=== PATIENT | female | born 1940 | race Caucasian/White ===

== ENCOUNTER 2019-05-30 15:12 | Outpatient (CLI) | payer MEDICARE, BC, SELFPAY ==
[2019-05-30 16:08] LABS: Alanine Aminotransferase 45 U/L (4-35); Albumin Level 4.2 g/dL (3.5-5.1); Alkaline Phosphatase 77 U/L (38-126); Aspartate Amino Transferase 43 U/L (14-36); Bilirubin,Total 1.2 mg/dL (0.2-1.3); Blood Urea Nitrogen 16 mg/dL (7-17); Calcium 8.9 mg/dL (8.4-10.2); Carbon Dioxide 31 mmol/L (22-30); Chloride 96 mmol/L (98-107); Cholesterol 166 mg/dL (0-200); Estimated Glomerular Filt Rate 40; Glucose 205 mg/dL (65-105); HDL Direct 43 mg/dL; Potassium 4.2 mmol/L (3.4-5.0); Sodium 137 mmol/L (137-145); Triglycerides 106 mg/dL (<150)
[2019-05-30 16:19] LABS: LDL Cholesterol Direct 101 mg/dL
[2019-05-30 16:40] LABS: Hemoglobin A1C 10.2 % (<5.7)
[2019-05-30 17:15] LABS: Vitamin D 25 Hydroxy 28.6 ng/mL
== END 2019-05-30 15:13 | disposition home or self-care (01) ==
PROVIDERS: PCP Internal Medicine; Visit Provider Nurse Practitioner
DX: E78.5 Hyperlipidemia, unspecified (principal); E11.49 Type 2 diabetes mellitus with other diabetic neurological complication; E55.9 Vitamin D deficiency, unspecified; R60.9 Edema, unspecified; Z95.810 Presence of automatic (implantable) cardiac defibrillator; I42.9 Cardiomyopathy, unspecified; I73.9 Peripheral vascular disease, unspecified; R53.83 Other fatigue; R42 Dizziness and giddiness; Z84.89 Family history of other specified conditions; R07.9 Chest pain, unspecified; G47.30 Sleep apnea, unspecified; I50.9 Heart failure, unspecified; E66.9 Obesity, unspecified; E07.89 Other specified disorders of thyroid
CPT/HCPCS: 36415; 80053; 80061; 82306; 83036

== ENCOUNTER 2019-10-01 16:38 | Inpatient (IN) | payer MEDICARE, BC, SELFPAY ==
--- NOTE | ~2019-10-01 | XR_ITS ---
[[id number] ] INDICATION: Right rib pain TECHNIQUE: Frontal projection of the upper right ribs, frontal projection of the lower right ribs, ob lique projection of all the right ribs, frontal inspiratory chest x-ray for interpretation. FINDINGS: There are no displaced rib fractures identified. There are no soft tissue abnormality see n. The lungs are clear. Note is made of a right humeral shaft fracture. Please refer to right humer us x-ray report dated 10/01/2019. IMPRESSION: 1:No displaced rib fractures. Reviewed, dictated and finalized at location A.
--- NOTE | ~2019-10-01 | CT_ITS ---
EXAMINATION: CT BRAIN W/O DATE: 10/01/2019 19:40 INDICATION: Status post fall. Trauma to the forehead. Patient on blood thinners TECHNIQUE: Computed tomography (CT) of the head was performed without intravenous contrast. The dose- length product was 605.33 mGy-cm. The mA was adjusted according to patient size. Iterative reconstruc tion technique was employed. COMPARISON: CT dated 08/16/2018 FINDINGS: Generalized atrophy. There are scattered moderate periventricular and subcortical white mat ter changes, most likely related to small vessel ischemic disease (microangiopathy). There is intracr anial atherosclerosis. No ventriculomegaly or midline shift. Midline sagittal images demonstrate a normal corpus callosum, c raniovertebral junction and sella turcica. Basilar cisterns are patent. Paranasal sinuses and mastoids are pneumatized. No depressed skull fractures. IMPRESSION: 1. No acute intracranial abnormality. 2: Chronic age-related findings. Reviewed, dictated and finalized at location A.
--- NOTE | ~2019-10-01 | CT_ITS ---
EXAMINATION: CT cervical spine wo con DATE: 10/01/2019 19:40 INDICATION: Neck pain after fall TECHNIQUE: Computed tomography (CT) of the cervical spine was performed without intravenous contrast. The dose-length product was 554 mGy-cm. Automated exposure control and iterative reconstruction [employer] were employed. COMPARISON: CT dated 02/20/2014 FINDINGS: Normal cervical lordosis. There is disc narrowing and endplate hypertrophy at C5-6. No acut e fracture or traumatic malalignment. There is moderate multilevel uncinate degenerative change, most advanced at C4-5 and C5-6. There is mild-moderate multilevel facet degenerative change. Lung apices are unremarkable. IMPRESSION: 1. No acute abnormality of the cervical spine. 2: Moderate cervical spondylosis. Reviewed, dictated and finalized at location A.
--- NOTE | ~2019-10-01 | XR_ITS ---
XR shoulder RT min 2V, XR humerus RT 10/01/2019 18:32 Indication: Right shoulder and arm pain after fall Procedure: 3 views right shoulder and 4 views right humerus Comparison: No prior studies for comparison. Findings: Mild osteoarthritis of the right shoulder. Osteopenia. There is a displaced midshaft spiral fracture of the right humerus. There is varus angulation. No other fractures. Impression: 1: Displaced midshaft spiral fracture right humerus with varus angulation. Reviewed, dictated and finalized at location A. Impression: 1: Displaced midshaft spiral fracture right humerus with varus angulation. Impression: 1: Displaced midshaft spiral fracture right humerus with varus angulation.
[2019-10-01 17:47] VITALS: BP 149/53; PULSE 78; RESP 18; TEMP 36.8; O2SAT 96
--- NOTE | 2019-10-01 17:47 | ECG_ITS ---
Measurements Intervals [place] Rate: 80 P: 59 AL: 156 QRS: -30 QRSD: 144 T: 56 QT: 437 QTc: 504 Interpretive Statements SINUS RHYTHM RIGHT BUNDLE BRANCH BLOCK VOLTAGE CRITERIA FOR LVH BASELINE ARTIFACT- I, III, AVL, AVF, V1-V2 ABNORMAL ECG Electronically Signed On 10-01-2019 19:30:16 CDT by John Luong D.O.
[2019-10-01 18:04] LABS: Basophils Percent Auto 0.3 % (0.2-1.2); Eosinophils Absolute Auto 0.1 K/mm3 (0-0.3); Eosinophils Percent Auto 0.7 % (0-4.4); Hemoglobin 14.1 g/dL (12.0-15.0); Immature Granulocyte Absolute 0.05 K/mm3 (0.00-0.031); Immature Granulocyte Percent A 0.5 % (0-0.5); Lymphocytes Absolute Auto 0.82 K/mm3 (0.9-3.2); Lymphocytes Percent Auto 7.6 % (18.3-44.2); Mean Corpuscular HGB Conc 33.6 g/dl (32-36); Mean Corpuscular Hemoglobin 30.1 pg (26-34); Mean Corpuscular Volume 89.6 fl (80-100); Mean Platelet Volume 10.2 fl (7.4-10.4); Monocytes Absolute Auto 0.9 K/mm3 (0.1-0.6); Monocytes Percent Auto 8.3 % (2.6-8.5); Neutrophils Absolute Auto 8.9 K/mm3 (1.3-6.7); Neutrophils Percent Auto 82.6 % (45.5-73.1); Platelet Count Result 248 k/mm3 (150-375); Red Blood Count 4.69 M/mm3 (4.2-5.4); Red Cell Distribution Width 12.6 % (11.5-14.5); White Blood Count 10.8 K/mm3 (4.5-10.0)
[2019-10-01 18:16] LABS: Alanine Aminotransferase 56 U/L (4-35); Albumin Level 4.4 g/dL (3.5-5.1); Alkaline Phosphatase 93 U/L (38-126); Aspartate Amino Transferase 50 U/L (14-36); Bilirubin,Total 1.3 mg/dL (0.2-1.3); Blood Urea Nitrogen 18 mg/dL (7-17); Carbon Dioxide 28 mmol/L (22-30); Chloride 92 mmol/L (98-107); Estimated CRCL calculation 47 ml/min; Estimated Glomerular Filt Rate 54; Glucose 446 mg/dL (65-105); Potassium 3.9 mmol/L (3.4-5.0); Sodium 129 mmol/L (137-145)
[2019-10-01] MEDS: SODIUM CHLORIDE 0.9% IV 500 ML 999 ML IV CONT (19:03)
[2019-10-01] MEDS: MORPHINE SULFATE 4 MG/ML INJ IV PUSH (19:03)
[2019-10-01] MEDS: ONDANSETRON INJ 4 MG/2 ML VIAL IV PUSH (19:04)
[2019-10-01 19:06] LABS: Creatine Kinase 190 U/L (30-135)
[2019-10-01 19:27] LABS: NT Pro B Type Natriuretic Pept 809 PG/ML (5-100); Troponin I 0.402 ng/mL (0.000-0.034)
[2019-10-01 19:29] LABS: Add Urine Microscopic? YES; Appearance Urine Cloudy (Clear); Bacteria Urine 2+ /hpf; Bilirubin Urine Negative (Negative); Blood Urine 1+ (Negative); Color Urine Yellow (Yellow); Glucose Urine UA 3+ mg/dL (Negative); Ketones Urine Negative (Negative); Leukocyte Esterase Ur 3+ LEU/UL (Negative); Mucus Urine Rare /lpf; Nitrate Urine Negative (Negative); Protein Urine 1+ mg/dL (Negative); Squamous Epithelial Cell Urine Few /hpf (Few); Urobilinogen Urine Negative mg/dL (<2.0); WBC Clumps Urine Present /HPF; WBC Urine >75 /hpf
[2019-10-01 20:23] VITALS: BP 155/65; PULSE 79; RESP 17; O2SAT 90
[2019-10-01 21:00] VITALS: BP 153/60; PULSE 82; RESP 15
[2019-10-01] MEDS: MORPHINE SULFATE 2 MG/ML INJ IV PUSH (21:03)
--- NOTE | 2019-10-01 21:23 | ED.GENADULT ---
HPI - General Adult General Chief complaint: Fall Stated complaint: Fall Time Seen by Provider: 10/01/19 18:45 Source: patient and family Mode of arrival: ambulatory Limitations: no limitations History of Present Illness HPI narrative: Patient is a 78-year-old female who presents with family for evaluation of injuries related to a fall that occurred yesterday afternoon patient notes that she lost her balance and fell landing on her side she believes injuring the right upper extremity where she has bruising swelling and moderate aching pain to the right humerus. Patient also presents with bruising around the right eye patient denies lightheadedness dizziness headache. Patient with history of diabetes coronary artery disease hypertension and obesity. Patient lives with family family was able to respond to the patient after falling in a timely manner. Patient denies anticoagulant use. Patient notes that she is continued to have moderate aching pain to the right upper extremity. Patient has difficulty moving the extremity. Notes some numbness down the arm. Patient notes she is still able to move her fingers and hand. Patient denies any neck or back pain. Patient is also been having some dark smelly urine per family with concern for urinary tract infection. Related Data Home Medications Medication Instructions Recorded Confirmed calcium carbonate 500 mg (1,250 1 tablet PO DAILY 04/03/19 mg)-vitamin D3 400 unit tablet isosorbide mononitrate 30 mg 30 mg PO DAILY 04/03/19 tablet,extended release 24 hr omeprazole 20 mg capsule,delayed 20 mg PO DAILY 04/03/19 release simvastatin 20 mg tablet 20 mg PO DAILY 04/03/19 multivitamin 1 tablet PO DAILY 10/01/19 Allergies Allergy/AdvReac Type Severity Reaction Status Date / Time No Known Allergies Allergy Unknown Verified 10/01/19 18:51 Review of Systems Review of Systems: All systems reviewed & are unremarkable except as noted in HPI and below [facility] Past Medical History Medical History (Updated 10/01/19 @ 22:20 by Kenton Escoto PA-C) CAD (coronary artery disease) CHF (congestive heart failure) Hyperlipidemia Hypertension Neuropathy Organic sleep apnea Osteoarthritis Surgical History Surgical History H/O: hysterectomy Hx of gastric bypass Hx of heart artery stent Social History Social History Gender identity (if verbalized by the patient): Female Exam Narrative: Exam Narrative: GENERAL: Well-appearing, obese, and in no acute distress. HEAD: Normocephalic, tenderness and bruising around the right eye EYES: PERRLA and EOMI. ENT: Nares clear, no rhinorrhea or epistaxis. Mucous membranes moist. Oropharynx without tonsillar hypertrophy exudate or other lesions. NECK: Supple. No adenopathy or masses. CHEST: Clear to auscultation. No respiratory distress. No wheezes rales or rhonchi HEART: Regular rate and rhythm. No murmur heard. Normal peripheral pulses. ABDOMEN: Soft, nontender, distended EXTREMITIES: Tenderness of the right humerus with bruising and swelling tissues are soft SKIN: Warm, dry, no rash. NEURO: No focal deficits. Alert and oriented x3. Cranial nerves II through XII grossly intact. Neurovascularly intact. Capillary refill less than 2 seconds PSYCH: Normal mood and affect. Course Course Emergency Course: Patient and family in the room aware of case findings treatment plan and diagnosis as well as discussion with specialists and hospitalist service and agreed to stay in hospital. Patient was placed in a coaptation splint Consultations Consultation #1: Discussed case with orthopedist who would like the patient to be placed in a coaptation splint and will follow patient in hospital. Date: 10/01/19 Time: 21:29 Consultation #2: Spoke with Dr. Mercedes sales clerk supervisor who is baby aspirin therapy at this time given no cardiac com
[2019-10-01 22:53] LABS: Cholesterol 145 mg/dL (0-200); HDL Direct 40 mg/dL; Triglycerides 76 mg/dL (<150)
[2019-10-01 23:04] LABS: LDL Cholesterol Direct 85 mg/dL
--- NOTE | 2019-10-01 23:12 | PC.NURSE ---
Spoke with Ms Samuel regarding diabetic medication, pt stated she takes Novolog 70/30 sliding scale.
[2019-10-01 23:15] VITALS: BP 157/69; PULSE 77; RESP 15; O2SAT 93
[2019-10-02] VITALS (16 sets, daily range): BP systolic 138–155; BP diastolic 47–62; PULSE 72–102; RESP 18–22; TEMP 35.9–36.8; O2SAT 93–100; BMI 39.5
[2019-10-02 00:12] LABS: Glucose Point of Care 345 (65-105)
[2019-10-02] MEDS: LACTATED RINGERS 1,000 ML 75 ML IV CONT ×2 (00:17→13:39)
[2019-10-02] MEDS: MORPHINE SULFATE 4 MG/ML INJ IV PUSH ×3 (00:19→08:15)
--- NOTE | 2019-10-02 00:39 | PM.IMHP ---
H&P: HPI History of Present Illness Chief complaint: Elevated troponin, closed humerus fracture, Narrative: This is a pleasant 78 year old Diabetic female with known CAD+ s/p [place] s/p stents placed who fell at home on Tuesday evening when she was reaching for something, lost her balance, and fell on her right side. She remembers hitting the wall and then falling on the ground. The patient has a history of diabetic neuropathy and does fall occasionally due to her neuropathy. On Tuesday evening she took acetaminophen at home and was able to sleep overnight but yesterday her right arm pain worsened which led her to come to the hospital for evaluation. The patient admits that she doesn't check her blood sugars at home because she is tired of diabetes . The patient was evaluated in the ER and the ER provider decided to check a troponin which came back positive. The patient has a history of CAD and her last heart attack was 10 years ago. Tonight she denies any chest pain although she does mention that she had an epsidoe of left sided chest pain yesterday. Cardiology has been consulted by ER provider. She has no other complaints. Routine labs demonstrated a grossly abnormal urinalysis. She denies any urinary symptoms. Review of Systems Review of Systems: All systems reviewed & are unremarkable except as noted in HPI and below PMFSH Past Medical History Medical History CAD (coronary artery disease) CHF (congestive heart failure) Hyperlipidemia Hypertension Neuropathy Organic sleep apnea Osteoarthritis Surgical History Surgical History H/O: hysterectomy Hx of gastric bypass Hx of heart artery stent Family History Family History Father Heart disease Mother Heart disease Sibling Heart disease Social History Social History Smoking packs per day: 2 Smoking cigarettes per day: 40.0 Years smoked: 58 Smoking pack-years: 116.00 Smoking status: Former smoker Tobacco type: cigarettes Alcohol intake: former Drinks per week: 1 Substance use: never Gender identity (if verbalized by the patient): Female Spiritual care concerns: No Meds Home Medications and Allergies Home Medications Medication Instructions Recorded Confirmed Type pen needle, diabetic 31 gauge x #30 each 01/29/19 10/01/19 Rx 1/4 losartan 50 mg tablet 50 mg PO DAILY #90 tablet 02/08/19 10/02/19 Rx calcium carbonate 500 mg (1,250 1 tablet PO DAILY 04/03/19 10/01/19 History mg)-vitamin D3 400 unit tablet isosorbide mononitrate 30 mg 30 mg PO DAILY 04/03/19 10/01/19 History tablet,extended release 24 hr omeprazole 20 mg capsule,delayed 20 mg PO DAILY 04/03/19 10/01/19 History release simvastatin 20 mg tablet 20 mg PO DAILY 04/03/19 10/01/19 History aspirin 81 mg PO DAILY 10/01/19 10/01/19 History multivitamin 1 tablet PO DAILY 10/01/19 10/01/19 History paroxetine HCl 20 mg PO HS 10/01/19 10/02/19 History zolpidem 5 mg PO HS 10/01/19 10/02/19 History furosemide [Lasix] 20 mg PO DAILY 10/02/19 10/02/19 History insulin NPH and regular human 90 unit SUBCUT DAILY 10/02/19 10/02/19 History [Novolin 70/30 U-100 Insulin] Allergies Allergy/AdvReac Type Severity Reaction Status Date / Time No Known Allergies Allergy Unknown Verified 10/01/19 18:51 Vital Signs Vital Signs - 24 hr 10/01/19 17:47 10/01/19 20:23 10/01/19 21:00 Temperature 36.8 C Pulse Rate 78 79 82 Respiratory Rate 18 17 15 Blood Pressure 149/53 H 155/65 H 153/60 H Pulse Oximetry 96 90 10/01/19 23:15 Temperature Pulse Rate 77 Respiratory Rate 15 Blood Pressure 157/69 H Pulse Oximetry 93 Exam Const: General: cooperative, alert, awake and uncomfortable Nutritional Appearance: obese morbidly obese Orientation/consciousness:
[2019-10-02] MEDS: INSULIN ASPART (*BKC) 100 UNITS/ML SUB-Q ×4 (00:50→16:39)
[2019-10-02 01:22] LABS: Troponin I 0.277 ng/mL (0.000-0.034)
--- NOTE | 2019-10-02 01:23 | ADMGEN ---
This patient, Lidia Ortega, was admitted to IMU Room 231-01 FROM ER 10/02/19 0000. Patient/family oriented to hospital policies and general routines including ID bracelet, bed and alarms, visiting hours, pain management, procedures, bathroom and other care routines, personal items, smoking policy, room service/diet, and visiting hours. Valuables list has been completed. Information on how to activate the Rapid Response Team has been discussed. Patient/Family are encouraged to report perceived risks to care and to ask questions if they do not understand what they are told or what they should do.
[2019-10-02 05:16] LABS: Basophils Percent Auto 0.4 % (0.2-1.2); Eosinophils Absolute Auto 0.2 K/mm3 (0-0.3); Eosinophils Percent Auto 2.3 % (0-4.4); Hematocrit 40.4 % (37.0-47.0); Immature Granulocyte Absolute 0.02 K/mm3 (0.00-0.031); Immature Granulocyte Percent A 0.2 % (0-0.5); Lymphocytes Absolute Auto 1.69 K/mm3 (0.9-3.2); Lymphocytes Percent Auto 20.8 % (18.3-44.2); Mean Corpuscular HGB Conc 32.2 g/dl (32-36); Mean Corpuscular Hemoglobin 29.4 pg (26-34); Mean Corpuscular Volume 91.4 fl (80-100); Mean Platelet Volume 9.9 fl (7.4-10.4); Monocytes Percent Auto 12.7 % (2.6-8.5); Neutrophils Absolute Auto 5.2 K/mm3 (1.3-6.7); Neutrophils Percent Auto 63.6 % (45.5-73.1); Platelet Count Result 232 k/mm3 (150-375); Red Blood Count 4.42 M/mm3 (4.2-5.4); Red Cell Distribution Width 12.7 % (11.5-14.5); White Blood Count 8.1 K/mm3 (4.5-10.0)
[2019-10-02 05:28] LABS: Blood Urea Nitrogen 16 mg/dL (7-17); Calcium 8.7 mg/dL (8.4-10.2); Carbon Dioxide 27 mmol/L (22-30); Chloride 99 mmol/L (98-107); Estimated CRCL calculation 48 ml/min; Estimated Glomerular Filt Rate 54; Glucose 245 mg/dL (65-105); Potassium 3.8 mmol/L (3.4-5.0); Sodium 136 mmol/L (137-145)
[2019-10-02 05:31] LABS: Glucose Point of Care 203 (65-105)
[2019-10-02 05:34] LABS: Hemoglobin A1C 11.2 % (<5.7)
[2019-10-02] MEDS: ASPIRIN 81 MG CHEWABLE TABLET PO (08:15)
[2019-10-02] MEDS: FAMOTIDINE 20 MG/2 ML VIAL IV PUSH ×2 (08:15→21:08)
--- NOTE | 2019-10-02 08:58 | PCOTNOTE ---
OT evaluation attempted. Awaiting Orthopedic consult for further instruction on weight bearing instruction and medical plan. Will attempt OT evaluation when further information is provided.
--- NOTE | 2019-10-02 08:58 | PCPTNOTE ---
Attempted PT evaluation this AM. Awaiting weight bearing status from orthopedic consultation. Will attempt again when weight bearing order received.
--- NOTE | 2019-10-02 09:08 | PM.CNOR ---
Assessment and Plan Assessment and plan (1) Closed fracture of right humerus: Qualifiers: Encounter type: initial encounter Fracture alignment: displaced Fracture morphology: spiral Humerus Location: shaft Qualified Code(s): S42.341A - Displaced spiral fracture of shaft of humerus, right arm, initial encounter for closed fracture Code(s): S42.301A - Unspecified fracture of shaft of humerus, right arm, initial encounter for closed fracture Status: Acute Assessment and Plan: 78-year-old female with a right upper arm fracture status post fall on Tuesday. History, exam and radiographs reviewed with the patient. The patient reports having fallen at home on Tuesday after reaching over her tray which is attached to her chair and falling directly onto the right side hitting her head at the time of the injury. The patient denies loss of consciousness or dizziness prior to her fall. She endorses right upper extremity pain but denies wrist pain or hand pain. On exam, the patient has full range of motion of the left upper extremity, right lower extremity, left lower extremity. No evidence of additional fractures at this time. Patient denies neck pain as well, ROM without pain. Radiographs from the emergency room reveal displaced midshaft spiral fracture right humerus with varus angulation. The fracture type and injury as well as radiographs discussed with the patient. Operative and nonoperative treatment options reviewed. Pending evaluation by Dr. Tobias, the patient may be a candidate for approximation with a humeral brace versus an open reduction internal fixation of the right humerus midshaft fracture. The patient would need both Medical and Cardiology clearance prior to any surgical intervention. The patient may resume a normal diet today under the direction of the medicine team. Continue splint and sling. Ice and pain control in the interim. Nonweightbearing of the right upper extremity. Will determine further conservative versus operative treatment options pending evaluation by Dr. Tobias. (2) Elevated troponin: Code(s): R79.89 - Other specified abnormal findings of blood chemistry Status: Acute Assessment and Plan: The patient will need cardiology clearance prior to any surgical intervention. Patient also require medical clearance prior to surgical intervention. We will determine surgical versus conservative treatment options pending further evaluation by Dr. Tobias. History of Present Illness HPI Consult date: 10/02/19 Requesting physician: Kenton Escoto PA-C Consult reason: fracture Chief complaint: Elevated troponin, closed humerus fracture, Narrative: 78 year old female admitted for elevated troponins and a right arm fracture s/p injury on Tuesday. Per the patient and medical records, she fell on Tuesday while at home. She reports having reached over her tray by her chair while standing and falling directly onto the right side and hitting her head. She denies LOC. Her son who lives with her called her daughter for assistance. Her daughter helped her up after a long time of her laying on the floor per patient. She had increased right arm pain and inability to use the arm which prompted her visit to the ED. Radiographs in the ED on 09/30 revealed a displaced midshaft spiral fracture right humerus with varus angulation. Orthopedic consult requested by ED physician. The patient was admitted for care of fracture and elevated troponins. Review of Systems Constitutional: Constitutional: Denies chills, Denies fatigue and Reports weakness Eyes: Comments: right eye ecchymosis ENT: Reports Normal hearing present and Denies nasal congestion Cardiovascular: Cardiovascular: Denies lightheadedness Respiratory: Respiratory: Denies dyspnea Gastrointestinal: Gastrointestinal: Denies abdominal pain and Denies bloating Genitourinary: Genitourinary: Reports no additional female genitourinar
--- NOTE | 2019-10-02 11:47 | PM.CNCAR ---
Assessment and Plan Assessment and plan (1) Elevated troponin: Code(s): R79.89 - Other specified abnormal findings of blood chemistry Status: Acute Assessment and Plan: downward trend since admission without active ischemic symptoms. Review prior cardiac records. Please obtain from [facility] and vascular Dr. Bosch. she has known history of underlying CAD. Continue aspirin, resume statin. Beta-shabnam is not on her medication list for unclear reasons, but otherwise would be advised. Exam and chest x-ray consistent with ICD. Check 2D echocardiogram to assess LV function, wall motion abnormalities, valve pathology pulmonary pressures. With regard to perioperative risk, down trending troponin possibly secondary to small subacute non ST elevation myocardial infarction, however, patient is otherwise asymptomatic in this regard at present. Difficult to further specify as I do not have cardiac records for clarification. If conservative management is a reasonable option this would be preferred. (2) CAD (coronary artery disease): Code(s): I25.10 - Atherosclerotic heart disease of [place] coronary artery without angina pectoris Status: Acute Assessment and Plan: No anginal symptoms, reported chest pain on Tuesday further details unavailable and patient does not corroborate at this time. She does state no issues or repeat heart catheterization since initial stent placement 9 years ago. (3) ICD (implantable cardioverter-defibrillator) in place: Code(s): Z95.810 - Presence of automatic (implantable) cardiac defibrillator Status: Acute Assessment and Plan: Details unknown. (4) Closed fracture of right humerus: Qualifiers: Encounter type: initial encounter Fracture alignment: displaced Fracture morphology: spiral Humerus Location: shaft Qualified Code(s): S42.341A - Displaced spiral fracture of shaft of humerus, right arm, initial encounter for closed fracture Code(s): S42.301A - Unspecified fracture of shaft of humerus, right arm, initial encounter for closed fracture Status: Acute Assessment and Plan: Per Orthopedic surgery. (5) Urinary tract infection: Qualifiers: Hematuria presence: without hematuria Urinary tract infection type: site unspecified Qualified Code(s): N39.0 - Urinary tract infection, site not specified Code(s): N39.0 - Urinary tract infection, site not specified Status: Acute Assessment and Plan: Per primary service. Continue Antibiotics. (6) Status post fall: Code(s): Z91.81 - History of falling Status: Acute Assessment and Plan: exacerbated by urinary tract infection (7) Hypertension: Qualifiers: Hypertension type: essential hypertension Qualified Code(s): I10 - Essential (primary) hypertension Code(s): I10 - Essential (primary) hypertension Status: Chronic Assessment and Plan: chronic, stable, resume home medical therapy. (8) Hyperlipidemia: Qualifiers: Hyperlipidemia type: other hyperlipidemia Qualified Code(s): E78.49 - Other hyperlipidemia Code(s): E78.5 - Hyperlipidemia, unspecified Status: Chronic Assessment and Plan: Resume statin therapy. (9) Diabetes mellitus with neurological manifestation: Qualifiers: Diabetes mellitus complication detail: with unspecified neuropathy Diabetes mellitus fdc insulin use: with termite treater helper use Diabetes mellitus type: type 2 Qualified Code(s): E11.40 - Type 2 diabetes mellitus with diabetic neuropathy, unspecified; Z79.4 - intermodal dispatcher (current) use of insulin Code(s): E11.49 - Type 2 diabetes mellitus with other diabetic neurological complication Status: Chronic Assessment and Plan: per primary service. History of Present Illness History of Present Illness Consult date/time: Date of service:
--- NOTE | 2019-10-02 11:57 | ECHO_ITS ---
Patient Info Name: Lidia Ortega Age: 78 years : 1940 Gender: Female Ht: 63 in Wt: 222 lbs BSA: 2.17 m2 HR: 91 bpm BP: 141 / 57 mmHg Heart Rhythm: Sinus Rhythm Technical Quality: Good Exam Date: 10/02/2019 2:35 PM Exam Location: [facility] Pulmonary Patient Status: Inpatient Admit Date: 10/02/2019 Staff Ordering Physician: Humberto Ford MD Corporate Physical Security Supervisor: Taiwo Johns, JEAN, RT Attending Provider: Oskar Dwyer MD Referring Physician: Logan WILLAMS; Exam Type: CA echo doppler color flow Study Info Indications I25.89 - Other forms of chronic ischemic heart disease Complete two-dimensional, color flow and Doppler transthoracic echocardiogram is performed. Summary 1. Left ventricular systolic function is moderately reduced, estimated at 35%. 2. There is moderately increased left ventricular wall thickness. 3. Akinesis of the apex, apical lateral, apical septal donato. 4. Apical anterior and anterior wall are hypokinetic. 5. The left ventricular diastolic function is grade I diastolic dysfunction. 6. Linear artifact in right ventricle suggestive of catheter(s), pacemaker lead(s), or ICD lead(s). 7. There is no aortic valve stenosis. 8. There is mild mitral valve regurgitation. 9. Unable to estimate PA systolic pressure due to poor spectral resolution of tricuspid regurgitant jet velocity. 10. Technically difficult study with limited views. Definity contrast administered. Left Ventricle Left ventricular chamber dimension is normal. Left ventricular systolic function is moderately reduced, estimated at 35%. There is moderately increased left ventricular wall thickness. The left ventricular diastolic function is grade I diastolic dysfunction. Akinesis of the apex, apical lateral, apical septal donato. Apical anterior and anterior wall are hypokinetic. Right Ventricle Right ventricular chamber dimension is not well visualized. Right ventricular systolic function is normal. Linear artifact in right ventricle suggestive of catheter(s), pacemaker lead(s), or ICD lead(s). Left Atria Left atrial chamber dimension is normal. Right Atria Right atrial chamber dimension is not well visualized. Aortic Valve The aortic valve is trileaflet. There is mild aortic valve sclerosis. There is no aortic valve stenosis. There is no aortic valve regurgitation. Pulmonic Valve The pulmonic valve is not well visualized. There is trace pulmonic regurgitation. Mitral Valve The mitral valve has normal leaflets. There is mild mitral valve regurgitation. The mitral valve annulus is mildly calcified. Tricuspid Valve The tricuspid valve leaflets are not well visualized. Unable to estimate PA systolic pressure due to poor spectral resolution of tricuspid regurgitant jet velocity. Pericardium/Pleural The pericardium appears epicardial fat pad. Inferior Vena Cava Normal inferior vena cava with >50% collapse upon inspiration consistent with normal right atrial pressure, 5 mmHg. Aorta The aortic root size at the sinus of Valsalva is normal. Left Ventricular Outflow Tract Name Value Normal LVOT 2D LVOT Diameter 2.0 cm LVOT Doppler
[2019-10-02 12:47] LABS: Glucose Point of Care 250 (65-105)
[2019-10-02] MEDS: PERFLUTREN LIPID MICROSPHERES 1.5 ML VIAL DILUTED TO 10 ML TOTAL VOLUME IV PUSH (15:19)
--- NOTE | 2019-10-02 16:25 | PM.IMPN ---
Progress Note: A&P Assessment and Plan (1) Closed fracture of right humerus: Qualifiers: Encounter type: initial encounter Fracture alignment: displaced Fracture morphology: spiral Humerus Location: shaft Qualified Code(s): S42.341A - Displaced spiral fracture of shaft of humerus, right arm, initial encounter for closed fracture Code(s): S42.301A - Unspecified fracture of shaft of humerus, right arm, initial encounter for closed fracture Status: Acute Assessment and Plan: Admit to IMU, NPO, pain control as needed. Right arm in sling. Ortho has been consulted by ER provider. Continue Ortho recommendations. 10/02/19 16:25 Patient is 78 year old female with history of coronary artery disease patient was brought to emergency department after see had fell as see lost her balance and patient was found on the floor knee her stairs, patient had sustained right upper extremity injury resulting in a displaced midshaft spiral fracture right humerus with varus angulation patient is seen by orthopedic surgeon if possible manage conservatively if not patient may need ORIF will continue to monitor, patient also has elevated tropes with history of coronary artery disease patient is seen by director of retail operations patient had a cardiac echo shows moderately reduced ejection fraction 35%, director of retail operations is requesting records from her director of retail operations at the [facility] and further recommendation to follow, currently patient complains of pain in her right arm, any chest pain shortness of breath palpitation fever or chills (2) Elevated troponin: Code(s): R79.89 - Other specified abnormal findings of blood chemistry Status: Acute Assessment and Plan: May be secondary to chest trauma from fall. CK is mildly elevated. Trend troponin. Monitor for chest pain. Cardiology has been consulted and will evaluate the patient in the morning. Continue telemetry. Continue Cardiology recommendations. (3) Urinary tract infection: Qualifiers: Hematuria presence: without hematuria Urinary tract infection type: site unspecified Qualified Code(s): N39.0 - Urinary tract infection, site not specified Code(s): N39.0 - Urinary tract infection, site not specified Status: Acute Assessment and Plan: Continue ceftriaxone. Urine culture pending. (4) Transaminitis: Code(s): R74.0 - Nonspecific elevation of levels of transaminase and lactic acid dehydrogenase [LDH] Status: Chronic Assessment and Plan: Likely secondary to CONTRERAS that the patient has been diagnosed with in the past. Monitor LFTs. 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 Resume home insulin regimen when the patient is eating again. Check HgbA1c. (6) (HFpEF) heart failure with preserved ejection fraction: Qualifiers: Heart failure chronicity: chronic Qualified Code(s): I50.32 - Chronic diastolic (congestive) heart failure Code(s): I50.30 - Unspecified diastolic (congestive) heart failure Status: Chronic Assessment and Plan: Compensated. Monitor Is and Os, daily weights. resume CHF meds when the patient is eating. (7) Hyperlipidemia: Qualifiers: Hyperlipidemia type: other hyperlipidemia Qualified Code(s): E78.49 - Other hyperlipidemia Code(s): E78.5 - Hyperlipidemia, unspecified Status: Chronic Assessment and Plan: Resume simvastatin when poss
--- NOTE | 2019-10-02 16:26 | PCPTNOTE ---
Spoke with Bebe Sidhu NP on phone who verified pt Alfred R IMANI.
[2019-10-02 16:34] LABS: Glucose Point of Care 291 (65-105)
[2019-10-02 21:06] LABS: Glucose Point of Care 339 (65-105)
[2019-10-03] VITALS (12 sets, daily range): BP systolic 133–156; BP diastolic 48–99; PULSE 71–95; RESP 20; TEMP 36.2–37.7; O2SAT 94–100
[2019-10-03] MEDS: MORPHINE SULFATE 4 MG/ML INJ IV PUSH ×3 (00:12→21:37)
[2019-10-03] MEDS: LACTATED RINGERS 1,000 ML 75 ML IV CONT ×2 (03:38→16:33)
[2019-10-03 05:02] LABS: Hematocrit 37.5 % (37.0-47.0); Hemoglobin 12.2 g/dL (12.0-15.0); Mean Corpuscular HGB Conc 32.5 g/dl (32-36); Mean Corpuscular Hemoglobin 29.8 pg (26-34); Mean Corpuscular Volume 91.7 fl (80-100); Mean Platelet Volume 9.8 fl (7.4-10.4); Platelet Count Result 209 k/mm3 (150-375); Red Blood Count 4.09 M/mm3 (4.2-5.4); Red Cell Distribution Width 12.6 % (11.5-14.5)
[2019-10-03 05:18] LABS: Blood Urea Nitrogen 14 mg/dL (7-17); Calcium 8.4 mg/dL (8.4-10.2); Carbon Dioxide 28 mmol/L (22-30); Chloride 98 mmol/L (98-107); Estimated CRCL calculation 53 ml/min; Estimated Glomerular Filt Rate > 60; Glucose 295 mg/dL (65-105); Sodium 130 mmol/L (137-145)
[2019-10-03] MEDS: FAMOTIDINE 20 MG/2 ML VIAL IV PUSH ×2 (08:40→21:39)
[2019-10-03] MEDS: ASPIRIN 81 MG CHEWABLE TABLET PO (08:40)
[2019-10-03 08:57] LABS: Glucose Point of Care 353 (65-105)
[2019-10-03] MEDS: INSULIN ASPART (*BKC) 100 UNITS/ML SUB-Q ×2 (09:09→16:34)
--- NOTE | 2019-10-03 11:44 | PM.PNORT ---
Progress Note: A&P Additional Plan S/P RIGHT HUMERAL SHAFT FRACTURE. I AGREE WITH CONSULT NOTE FROM TERRA MCKEON RN. WE WILL TRY AND TREAT PATIENT WITH NONOPERATIVE TREATMENT DUE TO TYPE OF FRACTURE AND HER MEDICAL RISK FOR SURGERY. WE DISCUSSED THE RISKS AND COMPLICATIONS OF EACH TREATMNET INCLUDING NONUNION, NV DAMAGE MAINLY TO THE RADIAL NERVE AND THE CHANCE OF NONUNION WITH OPERATIVE TREATMENT. PATIENT AGREES WITH TREATMENT PLAN. SHE WILL BE PLACED IN A COAPTATION ARM BRACE. WILL CONTINUE TO FOLLOW. Time Spent With Patient Time with patient: 15 - 25 minutes Subjective Subjective Date/Time Seen: 10/03/19 11:44 Principal diagnosis: R HUMERAL SHAFT FRACTURE Interval history: PATIENT IS FAIRLY COMFORTABLE. SHE HAS NO NEW COMPLAINTS. SHE HAS STABLE PER IMU PROTOCOL Exam Extrem: Other: R ARM IN SPLINT. SHE DEMONSTRATES TO BE NV INTACT. SHE HAS SEVERE PAIN WITH ANY ARM MOVEMENT, SHE HAS NO SIGN OF COMPARTMNET SYNDROME. Objective Data Vital Signs Vital Signs: Vital Signs - 24 hr 10/02/19 12:00 10/02/19 12:40 10/02/19 14:00 Temperature 36.5 C Pulse Rate 90 94 93 Respiratory Rate 20 Blood Pressure 138/47 L Pulse Oximetry 100 10/02/19 16:00 10/02/19 16:38 10/02/19 18:00 Temperature 35.9 C L Pulse Rate 102 H 95 99 Respiratory Rate 20 Blood Pressure 145/61 H Pulse Oximetry 95 10/02/19 20:00 10/02/19 22:00 10/03/19 00:00 Temperature 36.8 C 36.7 C Pulse Rate 91 82 81 Respiratory Rate 18 20 Blood Pressure 153/56 H 133/61 Pulse Oximetry 94 97 10/03/19 02:00 10/03/19 04:00 10/03/19 06:00 Temperature 36.6 C Pulse Rate 82 80 75 Respiratory Rate 20 Blood Pressure 136/87 Pulse Oximetry 96 10/03/19 08:00 Temperature 36.2 C L Pulse Rate 85 Respiratory Rate 20 Blood Pressure 156/99 H Pulse Oximetry 100 Intake/Output Intake/Output: Intake & Output 09/30/19 10/01/19 10/02/19 10/03/19 23:59 23:59 23:59 23:59 Intake Total 650 1820 1000 Output Total 150 Balance 500 1820 1000 Meds/Results Medications: Active Medications Generic Name Dose Route Start Last Admin Trade Name Freq PRN Reason Stop Dose Admin Acetaminophen 650 mg 10/01/19 22:22 Tylenol Tablet PO Q4H PRN Mild Pain (1-3) Hydrocodone Bitart/Acetaminophen 1 tab 10/03/19 08:13 10/03/19 08:39 [place] 5-325 Mg PO 1 tab Q6H PRN Administration Pain Rated 4-6 Hydrocodone Bitart/Acetaminophen 1 tab 10/03/19 11:27 [place] 7.5-325 Mg PO Q4H PRN Pain Rated 7-10 Aspirin 81 mg 10/02/19 08:00 10/03/19 08:40 Aspirin Chewable PO 81 mg DAILY@0800 TESFAYE Administration Dextrose 12.5 gm 10/02/19 00:34 Dextrose 50% Syringe IV PUSH PRN PRN Hypoglycemia Protocol Diphenhydramine HCl 25 mg 10/02/19 00:36 Benadryl Inj IV PUSH ONCE PRN insomnia Famotidine 20 mg 10/02/19 09:00 10/03/19 08:40 Pepcid Iv IV PUSH 20 mg Q12HR TESFYAE Administration Glucagon 1 mg 10/02/19 00:34 Glucagon For Inj IM PRN PRN Hypoglycemia Protocol Glucose 15 gm 10/02/19 00:34 Glutose 15 PO PRN PRN Hypoglycemia Protocol Lactated Ringer's 1,000 mls @ 75 mls/hr 10/01/19 22:25 10/03/19 03:38 Lr - Lactated Ringers Iv IV CONT 75 mls/hr .[id number] TESFAYE Administration Ceftriaxone Sodium/Dextrose 1 gm in 50 mls @ 100 mls/hr 10/02/19 21:00 10/02/19 21:08 Rocephin 1 Gm/D5w 50 Ml IVPB 100 mls/hr Q24H TESFAYE Administration Dextrose 1,000 mls @ 100 mls/hr 10/02/19 00:34 Dextrose 5% 1,000 Ml IVPB PRN PRN Hypoglycemia Protocol Insulin Aspart 3 - 6 units 10/02/19 17:00 10/03/19 09:09 Novolog SUB-Q 6 units ACINSULIN TESFAYE Administration Protocol Morphine Sulfate 4 mg 10/01/19 22:22 10/03/19 00:12 Morphine Sulfate Inj IV PUSH 4 mg Q2H PRN Administration Breakthrough Pain Nitroglycerin 0.4 mg 10/01/19 22:22 Nitrostat Subl 0.4 Mg (1/150) SUBLINGUAL
[2019-10-03 12:07] LABS: Glucose Point of Care 412 (65-105)
[2019-10-03] MEDS: INSULIN GLARGINE (*BKC) 100 UNITS/ML 10 UNITS SUB-Q ×2 (12:37→21:42)
[2019-10-03] MEDS: INSULIN ASPART (*BKC) 100 UNITS/ML 10 UNITS SUB-Q (12:37)
--- NOTE | 2019-10-03 16:08 | PM.IMPN ---
Progress Note: A&P Assessment and Plan (1) Closed fracture of right humerus: Qualifiers: Encounter type: initial encounter Fracture alignment: displaced Fracture morphology: spiral Humerus Location: shaft Qualified Code(s): S42.341A - Displaced spiral fracture of shaft of humerus, right arm, initial encounter for closed fracture Code(s): S42.301A - Unspecified fracture of shaft of humerus, right arm, initial encounter for closed fracture Status: Acute Assessment and Plan: 10/03/19 16:08 Patient is 78 year old female with history of coronary artery disease patient was brought to emergency department after see had fell as see lost her balance and patient was found on the floor knee her stairs, patient had sustained right upper extremity injury resulting in a displaced midshaft spiral fracture right humerus with varus angulation patient is seen by orthopedic surgeon if possible manage conservatively if not patient may need ORIF will continue to monitor, patient also has elevated tropes with history of coronary artery disease patient is seen by sql server consultant patient had a cardiac echo shows moderately reduced ejection fraction 35%, sql server consultant is requesting records from her sql server consultant at the [facility] and further recommendation to follow, patient was seen by orthopedic surgeon after discussing patient and the surgeon has opted conservative management and patient was placed on placed in a coaptation arm brace, currently patient complains of pain in her right arm, denies any chest pain shortness of breath palpitation fever or chills, seen working with the PT OT, patient will benefit from going home with outpatient physical therapy and home health (2) Elevated troponin: Code(s): R79.89 - Other specified abnormal findings of blood chemistry Status: Acute Assessment and Plan: May be secondary to chest trauma from fall. CK is mildly elevated. Trend troponin. Monitor for chest pain. Cardiology has been consulted and will evaluate the patient in the morning. Continue telemetry. Continue Cardiology recommendations. (3) Urinary tract infection: Qualifiers: Hematuria presence: without hematuria Urinary tract infection type: site unspecified Qualified Code(s): N39.0 - Urinary tract infection, site not specified Code(s): N39.0 - Urinary tract infection, site not specified Status: Acute Assessment and Plan: Continue ceftriaxone. Urine culture pending. (4) Transaminitis: Code(s): R74.0 - Nonspecific elevation of levels of transaminase and lactic acid dehydrogenase [LDH] Status: Chronic Assessment and Plan: Likely secondary to CONTRERAS that the patient has been diagnosed with in the past. Monitor LFTs. 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 Resume home insulin regimen when the patient is eating again. Check HgbA1c. (6) (HFpEF) heart failure with preserved ejection fraction: Qualifiers: Heart failure chronicity: chronic Qualified Code(s): I50.32 - Chronic diastolic (congestive) heart failure Code(s): I50.30 - Unspecified diastolic (congestive) heart failure Status: Chronic Assessment and Plan: Compensated. Monitor Is and Os, daily weights. resume CHF meds when the patient is eating. (7) Hyperlipidemia: Qualifiers: Hyperlipidemia type: other hyperlipidemia Qualified Code(s): E
--- NOTE | 2019-10-03 16:56 | PM.PNCARD ---
Progress Note: A&P Assessment and Plan (1) Elevated troponin: Code(s): R79.89 - Other specified abnormal findings of blood chemistry Status: Acute Assessment and Plan: downward trend since admission without active ischemic symptoms. Still awaiting requested cardiac records from [facility] Dr. Bosch. she has known history of underlying CAD. Continue aspirin, resume statin. Beta-shabnam is not on her medication list for unclear reasons, but otherwise would be advised. Exam and chest x-ray consistent with ICD. 2D echo personally reviewed EF 35%. -caution with IV fluids. If patient is eating and drinking without difficulty would recommend discontinuation. Please resume home cardiac medications. (2) CAD (coronary artery disease): Code(s): I25.10 - Atherosclerotic heart disease of [place] coronary artery without angina pectoris Status: Acute Assessment and Plan: No anginal symptoms, reported chest pain on Tuesday further details unavailable and patient does not corroborate at this time. She does state no issues or repeat heart catheterization since initial stent placement 9 years ago. (3) ICD (implantable cardioverter-defibrillator) in place: Code(s): Z95.810 - Presence of automatic (implantable) cardiac defibrillator Status: Acute Assessment and Plan: Details unknown. (4) Closed fracture of right humerus: Qualifiers: Encounter type: initial encounter Fracture alignment: displaced Fracture morphology: spiral Humerus Location: shaft Qualified Code(s): S42.341A - Displaced spiral fracture of shaft of humerus, right arm, initial encounter for closed fracture Code(s): S42.301A - Unspecified fracture of shaft of humerus, right arm, initial encounter for closed fracture Status: Acute Assessment and Plan: Per Orthopedic surgery. CONSERVATIVE MANAGEMENT PLANNED FOR THE TIME BEING. (5) Urinary tract infection: Qualifiers: Hematuria presence: without hematuria Urinary tract infection type: site unspecified Qualified Code(s): N39.0 - Urinary tract infection, site not specified Code(s): N39.0 - Urinary tract infection, site not specified Status: Acute Assessment and Plan: Per primary service. Continue Antibiotics. (6) Status post fall: Code(s): Z91.81 - History of falling Status: Acute Assessment and Plan: exacerbated by urinary tract infection (7) Hypertension: Qualifiers: Hypertension type: essential hypertension Qualified Code(s): I10 - Essential (primary) hypertension Code(s): I10 - Essential (primary) hypertension Status: Chronic Assessment and Plan: chronic, stable, resume home medical therapy. (8) Hyperlipidemia: Qualifiers: Hyperlipidemia type: other hyperlipidemia Qualified Code(s): E78.49 - Other hyperlipidemia Code(s): E78.5 - Hyperlipidemia, unspecified Status: Chronic Assessment and Plan: Resume statin therapy. 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 Subjective Date/time seen: Date of Service: 10/03/19 16:56 Follow up for elevated troponin, CAD Patient feels better today. Pain controlled. Denies chest pain or shortness of breath. No new issues overnight. Review of Systems Review of Systems: All systems reviewed & are unremarkable except as noted in HPI and below Constitutional
[2019-10-03 18:08] LABS: Glucose Point of Care 323 (65-105)
[2019-10-03 21:09] LABS: Glucose Point of Care 373 (65-105)
[2019-10-04] VITALS (11 sets, daily range): BP systolic 136–150; BP diastolic 50–72; PULSE 71–87; RESP 14–20; TEMP 35.7–37.4; O2SAT 91–94
[2019-10-04] MEDS: LACTATED RINGERS 1,000 ML 75 ML IV CONT (00:41)
[2019-10-04 06:11] LABS: Hematocrit 38.4 % (37.0-47.0); Hemoglobin 12.4 g/dL (12.0-15.0); Mean Corpuscular HGB Conc 32.3 g/dl (32-36); Mean Corpuscular Hemoglobin 29.5 pg (26-34); Mean Corpuscular Volume 91.4 fl (80-100); Mean Platelet Volume 10.1 fl (7.4-10.4); Platelet Count Result 193 k/mm3 (150-375); Red Cell Distribution Width 12.6 % (11.5-14.5); White Blood Count 12.7 K/mm3 (4.5-10.0)
[2019-10-04 06:33] LABS: Blood Urea Nitrogen 14 mg/dL (7-17); Calcium 8.5 mg/dL (8.4-10.2); Carbon Dioxide 24 mmol/L (22-30); Chloride 96 mmol/L (98-107); Estimated CRCL calculation 49 ml/min; Estimated Glomerular Filt Rate 54; Glucose 334 mg/dL (65-105); Sodium 130 mmol/L (137-145)
[2019-10-04 08:28] LABS: Glucose Point of Care 374 (65-105)
[2019-10-04] MEDS: INSULIN ASPART (*BKC) 100 UNITS/ML SUB-Q (08:51)
[2019-10-04] MEDS: INSULIN GLARGINE (*BKC) 100 UNITS/ML 10 UNITS SUB-Q ×3 (08:51→22:51)
[2019-10-04] MEDS: SIMVASTATIN 20 MG TABLET PO (08:52)
[2019-10-04] MEDS: ISOSORBIDE MONONITRATE 30 MG TAB.ER.24H PO (08:52)
[2019-10-04] MEDS: FUROSEMIDE 20 MG TABLET PO (08:52)
[2019-10-04] MEDS: FAMOTIDINE 20 MG/2 ML VIAL IV PUSH ×2 (08:52→20:20)
[2019-10-04] MEDS: ASPIRIN 81 MG ENTERIC TABLET PO (08:52)
[2019-10-04] MEDS: LOSARTAN POTASSIUM 50 MG TABLET PO (08:52)
--- NOTE | 2019-10-04 09:00 | PM.PNORT ---
Progress Note: A&P Assessment and Plan (1) Closed fracture of right humerus: Qualifiers: Encounter type: initial encounter Fracture alignment: displaced Fracture morphology: spiral Humerus Location: shaft Qualified Code(s): S42.341A - Displaced spiral fracture of shaft of humerus, right arm, initial encounter for closed fracture Code(s): S42.301A - Unspecified fracture of shaft of humerus, right arm, initial encounter for closed fracture Status: Acute Assessment and Plan: Continue arm brace and sling. Monitor NV status. Ice and pain. PT/OT. Nonweightbearing of the right upper extremity. Will continue to follow. (2) Elevated troponin: Code(s): R79.89 - Other specified abnormal findings of blood chemistry Status: Acute Assessment and Plan: The patient will need cardiology clearance prior to any surgical intervention. Patient also require medical clearance prior to surgical intervention. We will determine surgical versus conservative treatment options pending further evaluation by Dr. Tobias. Subjective Subjective Date/Time Seen: 10/04/19 09:00 Complaints of right arm pain, mild improvement. Tolerating humerus brace well. Review of Systems Constitutional: Constitutional: Denies chills, Denies fatigue and Reports weakness Eyes: Comments: right eye ecchymosis ENT: Reports Normal hearing present and Denies nasal congestion Cardiovascular: Cardiovascular: Denies lightheadedness Respiratory: Respiratory: Denies dyspnea Gastrointestinal: Gastrointestinal: Denies abdominal pain and Denies bloating Genitourinary: Genitourinary: Reports no additional female genitourinary complaints Musculoskeletal: Musculoskeletal: Denies back pain, Denies myalgias, Reports arthralgias (RUE ), Reports joint swelling (RUE ), Denies neck pain and Denies stiffness Integumentary/Breasts: Comments: Ecchymosis right eye/forehead Neurologic: Denies Abnormal speech present, Denies abnormal gait, Denies confusion and Denies numbness Psychiatric: Psychiatric: Reports no additional psychiatric complaints Exam Const: General: comfortable and no acute distress; No confusion Orientation/consciousness: No confusion HENMT: Ears: TM's normal bilaterally General nose exam: Normal nares present Mouth: Yes dry mucous membranes (NPO ) Eyes: Sclera: scleral abnormality right scleral injection diffuse, scleral tenderness and other (ecchymosis surrounding right eye ) Neck: Neck: supple and no JVD Other: Neck nontender with both active and passive range of motion. Resp: Effort & Inspection: normal respiratory effort Auscultation: diminished lung sounds Cardio: Rate: regular rate Rhythm: regular rhythm GI: Inspection: non-distended Urinary Catheter: Urinary Catheter: other (Incontinent of urine ) Skin: Other: ecchymosis right eye/right forehead Neuro: General: No confusion Cranial nerves: Yes Normal hearing present Speech: normal speech and No Abnormal speech present Motor exam (neuro): strength not 5/5 throughout (limited RUE due to fracture ) Sensory Exam: normal sensation Extrem: Right upper extremity: shoulder/upper arm abnormal to inspection (brace in place ), tenderness (diffuse RUE ) of the proximal humerus, axillary nerve sensory function normal and abnormal ROM (limited due to fracture ) held in an abnormal fashion in ADduction, elbow/forearm (ROM limited due to splint in place ), wrist normal to inspection, normal ROM and radial pulse present 2+; no tenderness and no swelling and Extremity exam: right hand normal to inspection, normal capillary refill, neuromotor exam normal wrist extension normal, thumb opposition normal, thumb IP flexion normal, thumb ADduction normal and fingers 2-5 ABduction normal and neurosensory exam normal Left upper extremity: normal to inspection, full ROM, normal capillary refill and shoulder/upper arm inspection abnormal, axillary nerve sensory funct
--- NOTE | 2019-10-04 09:53 | WPDCDIQUERY2 ---
CDI Query Clarification Request - Troponin 0.402, 0.300, 0.277 - In cardiology consult note, down trending troponin possibly secondary to small subacute non ST elevation myocardial infarction, however, patient is otherwise asymptomatic in this regard at present. has been documented Please clarify if possible subacute NSTEMI has been ruled in or ruled out. <Lidia Zaldivar RN - Last Filed: 10/04/19 09:58>
[2019-10-04 12:21] LABS: Glucose Point of Care 497 (65-105)
[2019-10-04] MEDS: INSULIN ASPART (*BKC) 100 UNITS/ML 10 UNITS SUB-Q ×3 (12:32→22:53)
--- NOTE | 2019-10-04 16:02 | PM.PNCARD ---
Progress Note: A&P Assessment and Plan (1) Elevated troponin: Code(s): R79.89 - Other specified abnormal findings of blood chemistry Status: Acute Assessment and Plan: Troponin 10/01/2019 0.402, 0.300 10/02/2019 0.277. Downward trending troponin is likely secondary to small subacute non ST a elevation myocardial infarction (has been ruled in) No active ischemic symptoms. Records from [facility] Dr. Bosch reviewed. Office note from 05/31/2019: She had an abnormal stress test in April which showed a large fixed anterior apical defect consistent with the infarct. Her symptoms were progressive shortness of breath. He felt that she should proceed to cardiac catheterization as in 2010 she had a 60% RCA and a 60% left circumflex lesion in 2010. The ejection fraction on the stress test was 47%. His note states that there was an echocardiogram done in the office with no change however that report is not included in the records. The records also states that the medications were reviewed however they are not listed. Continue aspirin, simvastatin, losartan, furosemide, isosorbide mononitrate. Beta-shabnam is not on her medication list for unclear reasons, but otherwise would be advised. Will leave this up to her primary rn radiation. 2D echo 10/02/2019:Left ventricular systolic function is moderately reduced, estimated at 35%. There is moderately increased left ventricular wall thickness. Akinesis of the apex, apical lateral, apical septal donato. Apical anterior and anterior wall are hypokinetic. The left ventricular diastolic function is grade I diastolic dysfunction. Linear artifact in right ventricle suggestive of catheter(s), pacemaker lead(s), or ICD lead(s). There is no aortic valve stenosis. There is mild mitral valve regurgitation. Unable to estimate PA systolic pressure due to poor spectral resolution of tricuspid regurgitant jet velocity. Technically difficult study with limited views. Definity contrast administered. Continue conservative management. (2) CAD (coronary artery disease): Qualifiers: Coronary Disease-Associated Artery/Lesion type: crow artery [place] vs. transplanted heart: crow heart Associated angina: without angina Qualified Code(s): I25.10 - Atherosclerotic heart disease of crow coronary artery without angina pectoris Code(s): I25.10 - Atherosclerotic heart disease of crow coronary artery without angina pectoris Status: Acute Assessment and Plan: No anginal symptoms. Reported chest pain on Tuesday further details unavailable and she does not corroborate at this time. Repeat cardiac catheterization as above did not take place. Most likely due to COVID as no elective procedures were being performed. No need for cardiac catheterization at this time as she is asymptomatic. (3) ICD (implantable cardioverter-defibrillator) in place: Code(s): Z95.810 - Presence of automatic (implantable) cardiac defibrillator Status: Acute Assessment and Plan: Details unknown. No details are provided in the office note that was sent. She does not know what company. (4) Closed fracture of right humerus: Qualifiers: Encounter type: initial encounter Fracture alignment: displaced Fracture morphology: spiral Humerus Location: shaft Qualified Code(s): S42.341A - Displaced spiral fracture of shaft of humerus, right arm, initial encounter for closed fracture Code(s): S42.301A - Unspecified fracture of shaft of humerus, right arm, initial encounter for closed fracture Status: Acute Assessment and Plan: Per Orthopedic surgery. CONSERVATIVE MANAGEMENT PLANNED FOR THE TIME BEING. (5) Urinary tract infection: Qualifiers: Hematuria presence: without hematuria Urinary tract infection type
[2019-10-04 16:30] LABS: Glucose Point of Care 477 (65-105)
[2019-10-04] MEDS: INSULIN GLARGINE (*BKC) 100 UNITS/ML 30 UNITS SUB-Q (17:26)
--- NOTE | 2019-10-04 17:46 | PM.IMPN ---
Progress Note: A&P Assessment and Plan (1) Closed fracture of right humerus: Qualifiers: Encounter type: initial encounter Fracture alignment: displaced Fracture morphology: spiral Humerus Location: shaft Qualified Code(s): S42.341A - Displaced spiral fracture of shaft of humerus, right arm, initial encounter for closed fracture Code(s): S42.301A - Unspecified fracture of shaft of humerus, right arm, initial encounter for closed fracture Status: Acute Assessment and Plan: 10/04/19 17:46 Patient is 78 year old female with history of coronary artery disease patient was brought to emergency department after see had fell as see lost her balance and patient was found on the floor knee her stairs, patient had sustained right upper extremity injury resulting in a displaced midshaft spiral fracture right humerus with varus angulation patient is seen by orthopedic surgeon if possible manage conservatively if not patient may need ORIF will continue to monitor, patient also has elevated tropes with history of coronary artery disease patient is seen by telecom billing analyst patient had a cardiac echo shows moderately reduced ejection fraction 35%, telecom billing analyst is requesting records from her telecom billing analyst at the [facility] and further recommendation to follow, patient was seen by orthopedic surgeon after discussing patient and the surgeon has opted conservative management and patient was placed on placed in a coaptation arm brace, today patient son is present, apparently patient did not give great detail about her diabetes upon arrival and her blood sugars a her running in 400s, patient takes 70/30, 75 units in the bedtime and 45 units at breakfast, Penilla been monitoring patient, start the patient Lantus 20 units b.i.d. will monitor with sliding scale and has history insulin and adjust her Lantus, we have consulted clinical systems educator for further recommendation, patient is being evaluated for rehab and patient will benefit going to rehab before discharging home. (2) Elevated troponin: Code(s): R79.89 - Other specified abnormal findings of blood chemistry Status: Acute Assessment and Plan: May be secondary to chest trauma from fall. CK is mildly elevated. Trend troponin. Monitor for chest pain. Cardiology has been consulted and will evaluate the patient in the morning. Continue telemetry. Continue Cardiology recommendations. (3) Urinary tract infection: Qualifiers: Hematuria presence: without hematuria Urinary tract infection type: site unspecified Qualified Code(s): N39.0 - Urinary tract infection, site not specified Code(s): N39.0 - Urinary tract infection, site not specified Status: Acute Assessment and Plan: Continue ceftriaxone. Urine culture pending. (4) Transaminitis: Code(s): R74.0 - Nonspecific elevation of levels of transaminase and lactic acid dehydrogenase [LDH] Status: Chronic Assessment and Plan: Likely secondary to CONTRERAS that the patient has been diagnosed with in the past. Monitor LFTs. (5) Diabetes mellitus with neurological manifestation: Qualifiers: Diabetes mellitus type: type 2 Diabetes mellitus chcf insulin use: with long term care phlebotomist use Diabetes mellitus complication detail: with unspecified neuropathy Qualified Code(s): E11.40 - Type 2 diabetes mellitus with diabetic neuropathy, unspecified; Z79.4 - half-way (current) use of insulin Code(s): E11.49 - Type 2 diabetes mellitus with other diabetic neurological complication Status: Chronic Assessment and Plan: Accuchecks, SSI Coverage, Hypoglycemic protocol. Resume home insulin regimen when the patient is eating again. Check HgbA1c. (6) (HFpEF) heart failure with preserved ejection fraction: Qualifiers: Heart failure chronicity: chronic Qualified Code(s): I50.32 - Chronic diastolic (congestive) heart failure Code(s): I50.30 -
--- NOTE | 2019-10-04 19:00 | PC.NURSE ---
This patient, Lidia Ortega, was transferred to [facility] on 10/04/19 at 1900. Personal belongings sent with patient. Report given to MANAS Briggs. Appropriate documentation sent with patient.
--- NOTE | 2019-10-04 19:05 | PC.NURSE ---
Received from [facility] 231/ via bed.
[2019-10-04 21:56] LABS: Glucose Point of Care 397 (65-105)
[2019-10-05] VITALS (10 sets, daily range): BP systolic 124–154; BP diastolic 46–69; PULSE 66–78; RESP 14–18; TEMP 36.3–36.9; O2SAT 95–97
[2019-10-05 02:02] LABS: Glucose Point of Care 280 (65-105)
[2019-10-05 05:50] LABS: Hematocrit 35.1 % (37.0-47.0); Hemoglobin 11.8 g/dL (12.0-15.0); Mean Corpuscular HGB Conc 33.6 g/dl (32-36); Mean Corpuscular Hemoglobin 30.3 pg (26-34); Mean Corpuscular Volume 90.2 fl (80-100); Platelet Count Result 211 k/mm3 (150-375); Red Blood Count 3.89 M/mm3 (4.2-5.4); Red Cell Distribution Width 12.5 % (11.5-14.5); White Blood Count 10.6 K/mm3 (4.5-10.0)
[2019-10-05 06:07] LABS: Blood Urea Nitrogen 17 mg/dL (7-17); Calcium 8.4 mg/dL (8.4-10.2); Carbon Dioxide 29 mmol/L (22-30); Chloride 97 mmol/L (98-107); Estimated CRCL calculation 49 ml/min; Estimated Glomerular Filt Rate 54; Glucose 289 mg/dL (65-105); Potassium 3.5 mmol/L (3.4-5.0); Sodium 133 mmol/L (137-145)
[2019-10-05 07:34] LABS: Glucose Point of Care 272 (65-105)
[2019-10-05] MEDS: SIMVASTATIN 20 MG TABLET PO (08:34)
[2019-10-05] MEDS: ASPIRIN 81 MG ENTERIC TABLET PO (08:34)
[2019-10-05] MEDS: FUROSEMIDE 20 MG TABLET PO (08:34)
[2019-10-05] MEDS: FAMOTIDINE 20 MG/2 ML VIAL IV PUSH ×2 (08:34→22:30)
[2019-10-05] MEDS: ISOSORBIDE MONONITRATE 30 MG TAB.ER.24H PO (08:34)
[2019-10-05] MEDS: LOSARTAN POTASSIUM 50 MG TABLET PO (08:34)
[2019-10-05] MEDS: INSULIN GLARGINE (*BKC) 100 UNITS/ML 30 UNITS SUB-Q ×2 (08:35→22:32)
[2019-10-05] MEDS: INSULIN ASPART (*BKC) 100 UNITS/ML SUB-Q ×2 (08:37→16:47)
[2019-10-05 11:42] LABS: Glucose Point of Care 424 (65-105)
[2019-10-05] MEDS: INSULIN GLARGINE (*BKC) 100 UNITS/ML 10 UNITS SUB-Q (12:42)
[2019-10-05] MEDS: INSULIN ASPART (*BKC) 100 UNITS/ML 10 UNITS SUB-Q (12:42)
[2019-10-05 13:49] LABS: SARS-CoV-2 RNA PCR Negative
[2019-10-05 16:22] LABS: Glucose Point of Care 290 (65-105)
--- NOTE | 2019-10-05 16:44 | PM.IMPN ---
Progress Note: A&P Assessment and Plan (1) Closed fracture of right humerus: Qualifiers: Encounter type: initial encounter Fracture alignment: displaced Fracture morphology: spiral Humerus Location: shaft Qualified Code(s): S42.341A - Displaced spiral fracture of shaft of humerus, right arm, initial encounter for closed fracture Code(s): S42.301A - Unspecified fracture of shaft of humerus, right arm, initial encounter for closed fracture Status: Acute Assessment and Plan: 10/05/19 16:44 Patient is 78 year old female with history of coronary artery disease patient was brought to emergency department after see had fell as see lost her balance and patient was found on the floor knee her stairs, patient had sustained right upper extremity injury resulting in a displaced midshaft spiral fracture right humerus with varus angulation patient is seen by orthopedic surgeon if possible manage conservatively if not patient may need ORIF will continue to monitor, patient also has elevated tropes with history of coronary artery disease patient is seen by farm adviser patient had a cardiac echo shows moderately reduced ejection fraction 35%, farm adviser is requesting records from her farm adviser at the [facility] and further recommendation to follow, patient was seen by orthopedic surgeon after discussing patient and the surgeon has opted conservative management and patient was placed on placed in a coaptation arm brace, today patient son is present, apparently patient did not give great detail about her diabetes upon arrival and her blood sugars a her running in 400s, patient takes 70/30, 75 units in the bedtime and 45 units at breakfast, been monitoring patient, start the patient on Lantus 20 units b.i.d. monitored with sliding scale and adjust her Lantus, we have consulted tobacco prevention health educator for further recommendation, patient is being evaluated for rehab and patient will benefit going to rehab before discharging home. Currently patient on Lantus 30 units b.i.d. and sliding scale however blood sugars a close to 400 will increase Lantus to 40 units b.i.d. will continue to monitor with sliding scale, awaiting placement to rehab (2) Elevated troponin: Code(s): R79.89 - Other specified abnormal findings of blood chemistry Status: Acute Assessment and Plan: May be secondary to chest trauma from fall. CK is mildly elevated. Trend troponin. Monitor for chest pain. Cardiology has been consulted and will evaluate the patient in the morning. Continue telemetry. Continue Cardiology recommendations. (3) Urinary tract infection: Qualifiers: Hematuria presence: without hematuria Urinary tract infection type: site unspecified Qualified Code(s): N39.0 - Urinary tract infection, site not specified Code(s): N39.0 - Urinary tract infection, site not specified Status: Acute Assessment and Plan: Continue ceftriaxone. Urine culture pending. Urine culture is growing Klebsiella pneumonia sensitive to Rocephin will continue (4) Transaminitis: Code(s): R74.0 - Nonspecific elevation of levels of transaminase and lactic acid dehydrogenase [LDH] Status: Chronic Assessment and Plan: Likely secondary to CONTRERAS that the patient has been diagnosed with in the past. Monitor LFTs. (5) Diabetes mellitus with neurological manifestation: Qualifiers: Diabetes mellitus type: type 2 Diabetes mellitus half-way insulin use: with manager long term care use Diabetes mellitus complication detail: with unspecified neuropathy Qualified Code(s): E11.40 - Type 2 diabetes mellitus with diabetic neuropathy, unspecified; Z79.4 - intermission coordinator (current) use of insulin Code(s): E11.49 - Type 2 diabetes mellitus with other diabetic neurological complication Status: Chronic Assessment and Plan: Accuchecks, SSI Coverage, Hypoglycemic protocol. Resume home insulin regimen when the
[2019-10-05 22:47] LABS: Glucose Point of Care 254 (65-105)
[2019-10-06] VITALS: PULSE 65
[2019-10-06 04:11] VITALS: PULSE 59
[2019-10-06 06:09] LABS: Hematocrit 36.3 % (37.0-47.0); Hemoglobin 12.1 g/dL (12.0-15.0); Mean Corpuscular HGB Conc 33.3 g/dl (32-36); Mean Corpuscular Hemoglobin 30.1 pg (26-34); Mean Corpuscular Volume 90.3 fl (80-100); Mean Platelet Volume 9.9 fl (7.4-10.4); Platelet Count Result 215 k/mm3 (150-375); Red Blood Count 4.02 M/mm3 (4.2-5.4); Red Cell Distribution Width 12.7 % (11.5-14.5); White Blood Count 8.7 K/mm3 (4.5-10.0)
[2019-10-06 06:41] LABS: Blood Urea Nitrogen 20 mg/dL (7-17); Calcium 8.3 mg/dL (8.4-10.2); Carbon Dioxide 28 mmol/L (22-30); Chloride 99 mmol/L (98-107); Estimated CRCL calculation 54 ml/min; Estimated Glomerular Filt Rate > 60; Glucose 226 mg/dL (65-105); Potassium 3.5 mmol/L (3.4-5.0); Sodium 134 mmol/L (137-145)
[2019-10-06 07:56] LABS: Glucose Point of Care 219 (65-105)
[2019-10-06] MEDS: INSULIN ASPART (*BKC) 100 UNITS/ML SUB-Q ×3 (07:58→18:04)
[2019-10-06 08:00] VITALS: BP 128/60; PULSE 60; PULSE 71; RESP 16; TEMP 36.8; O2SAT 97
[2019-10-06] MEDS: INSULIN GLARGINE (*BKC) 100 UNITS/ML 30 UNITS SUB-Q (08:00)
[2019-10-06] MEDS: ASPIRIN 81 MG ENTERIC TABLET PO (08:06)
[2019-10-06] MEDS: FUROSEMIDE 20 MG TABLET PO (08:06)
[2019-10-06] MEDS: ISOSORBIDE MONONITRATE 30 MG TAB.ER.24H PO (08:07)
[2019-10-06] MEDS: SIMVASTATIN 20 MG TABLET PO (08:07)
[2019-10-06] MEDS: LOSARTAN POTASSIUM 50 MG TABLET PO (08:07)
[2019-10-06] MEDS: POTASSIUM CHLORIDE 20 MEQ TABLET 40 MEQ PO (09:33)
[2019-10-06] MEDS: FAMOTIDINE 20 MG/2 ML VIAL IV PUSH ×2 (09:34→21:36)
[2019-10-06 11:39] LABS: Glucose Point of Care 295 (65-105)
[2019-10-06 12:00] VITALS: BP 136/72; PULSE 61; RESP 16; TEMP 36.6; O2SAT 98
--- NOTE | 2019-10-06 12:23 | PM.IMPN ---
Progress Note: A&P Assessment and Plan (1) Closed fracture of right humerus: Qualifiers: Encounter type: initial encounter Fracture alignment: displaced Fracture morphology: spiral Humerus Location: shaft Qualified Code(s): S42.341A - Displaced spiral fracture of shaft of humerus, right arm, initial encounter for closed fracture Code(s): S42.301A - Unspecified fracture of shaft of humerus, right arm, initial encounter for closed fracture Status: Acute Assessment and Plan: 10/06/19 12:23 Patient is 78 year old female with history of coronary artery disease patient was brought to emergency department after see had fell as see lost her balance and patient was found on the floor knee her stairs, patient had sustained right upper extremity injury resulting in a displaced midshaft spiral fracture right humerus with varus angulation patient is seen by orthopedic surgeon if possible manage conservatively if not patient may need ORIF will continue to monitor, patient also has elevated tropes with history of coronary artery disease patient is seen by graphic user interface designer patient had a cardiac echo shows moderately reduced ejection fraction 35%, graphic user interface designer is requesting records from her graphic user interface designer at the [facility] and further recommendation to follow, patient was seen by orthopedic surgeon after discussing patient and the surgeon has opted conservative management and patient was placed on placed in a coaptation arm brace, today patient son is present, apparently patient did not give great detail about her diabetes upon arrival and her blood sugars a her running in 400s, patient takes 70/30, 75 units in the bedtime and 45 units at breakfast, been monitoring patient, start the patient on Lantus 20 units b.i.d. monitored with sliding scale and adjust her Lantus, we have consulted perinatal educator for further recommendation, patient is being evaluated for rehab and patient will benefit going to rehab before discharging home. Currently patient on Lantus 30 units b.i.d. and sliding scale however blood sugars are 200 to 300 will increase Lantus to 40 units b.i.d. will continue to monitor with sliding scale, awaiting placement to rehab possbly on Tuesday. (2) Elevated troponin: Code(s): R79.89 - Other specified abnormal findings of blood chemistry Status: Acute Assessment and Plan: May be secondary to chest trauma from fall. CK is mildly elevated. Trend troponin. Monitor for chest pain. Cardiology has been consulted and will evaluate the patient in the morning. Continue telemetry. Continue Cardiology recommendations. (3) Urinary tract infection: Qualifiers: Hematuria presence: without hematuria Urinary tract infection type: site unspecified Qualified Code(s): N39.0 - Urinary tract infection, site not specified Code(s): N39.0 - Urinary tract infection, site not specified Status: Acute Assessment and Plan: Continue ceftriaxone. Urine culture pending. Urine culture is growing Klebsiella pneumonia sensitive to Rocephin will continue (4) Transaminitis: Code(s): R74.0 - Nonspecific elevation of levels of transaminase and lactic acid dehydrogenase [LDH] Status: Chronic Assessment and Plan: Likely secondary to CONTRERAS that the patient has been diagnosed with in the past. Monitor LFTs. (5) Diabetes mellitus with neurological manifestation: Qualifiers: Diabetes mellitus type: type 2 Diabetes mellitus prison insulin use: with prison use Diabetes mellitus complication detail: with unspecified neuropathy Qualified Code(s): E11.40 - Type 2 diabetes mellitus with diabetic neuropathy, unspecified; Z79.4 - jail (current) use of insulin Code(s): E11.49 - Type 2 diabetes mellitus with other diabetic neurological complication Status: Chronic Assessment and Plan: Accuchecks, SSI Coverage, Hypoglycemic protocol. Resume home insul
[2019-10-06 16:00] VITALS: BP 130/68; PULSE 62; PULSE 63; RESP 18; TEMP 36.9; O2SAT 95
[2019-10-06 18:04] LABS: Glucose Point of Care 282 (65-105)
[2019-10-06 20:00] VITALS: BP 145/54; PULSE 67; PULSE 73; RESP 16; TEMP 36.8; O2SAT 99
[2019-10-06] MEDS: INSULIN GLARGINE (*BKC) 100 UNITS/ML 40 UNITS SUB-Q (21:36)
[2019-10-06 22:35] LABS: Glucose Point of Care 377 (65-105)
[2019-10-07] VITALS (8 sets, daily range): BP systolic 144–155; BP diastolic 58–77; PULSE 60–81; RESP 18; TEMP 36.1–36.3; O2SAT 97–99
[2019-10-07 05:52] LABS: Hematocrit 36.1 % (37.0-47.0); Mean Corpuscular HGB Conc 33.2 g/dl (32-36); Mean Corpuscular Hemoglobin 30.1 pg (26-34); Mean Corpuscular Volume 90.5 fl (80-100); Mean Platelet Volume 9.5 fl (7.4-10.4); Platelet Count Result 214 k/mm3 (150-375); Red Blood Count 3.99 M/mm3 (4.2-5.4); Red Cell Distribution Width 12.8 % (11.5-14.5); White Blood Count 8.6 K/mm3 (4.5-10.0)
[2019-10-07 06:07] LABS: Blood Urea Nitrogen 19 mg/dL (7-17); Calcium 8.6 mg/dL (8.4-10.2); Carbon Dioxide 26 mmol/L (22-30); Chloride 99 mmol/L (98-107); Estimated CRCL calculation 54 ml/min; Estimated Glomerular Filt Rate > 60; Glucose 228 mg/dL (65-105); Potassium 3.7 mmol/L (3.4-5.0); Sodium 133 mmol/L (137-145)
[2019-10-07 07:52] LABS: Glucose Point of Care 201 (65-105)
[2019-10-07] MEDS: INSULIN GLARGINE (*BKC) 100 UNITS/ML 40 UNITS SUB-Q ×2 (08:17→20:06)
[2019-10-07] MEDS: INSULIN ASPART (*BKC) 100 UNITS/ML SUB-Q ×3 (08:19→17:03)
[2019-10-07] MEDS: FUROSEMIDE 20 MG TABLET PO (08:29)
[2019-10-07] MEDS: ASPIRIN 81 MG ENTERIC TABLET PO (08:29)
[2019-10-07] MEDS: SIMVASTATIN 20 MG TABLET PO (08:29)
[2019-10-07] MEDS: LOSARTAN POTASSIUM 50 MG TABLET PO (08:29)
[2019-10-07] MEDS: ISOSORBIDE MONONITRATE 30 MG TAB.ER.24H PO (08:29)
[2019-10-07] MEDS: FAMOTIDINE 20 MG/2 ML VIAL IV PUSH ×2 (08:30→20:01)
[2019-10-07 11:32] LABS: Glucose Point of Care 292 (65-105)
--- NOTE | 2019-10-07 13:16 | PCOTNOTE ---
Attempted to see patient this PM to engage patient in skilled OT to work on ADLs, transfers, but patient declined all interventions suggested by therapist. Patient educated over importance of continuing to participate in OT as patient is going to rehab at d/c. Patient still refused to participate in any tasks. Patient not seen for OT this date. Will continue plan of care tomorrow 10/08/2019.
--- NOTE | 2019-10-07 14:31 | PM.IMPN ---
Progress Note: A&P Assessment and Plan (1) Closed fracture of right humerus: Qualifiers: Encounter type: initial encounter Fracture alignment: displaced Fracture morphology: spiral Humerus Location: shaft Qualified Code(s): S42.341A - Displaced spiral fracture of shaft of humerus, right arm, initial encounter for closed fracture Code(s): S42.301A - Unspecified fracture of shaft of humerus, right arm, initial encounter for closed fracture Status: Acute Assessment and Plan: 10/07/19 14:31 Patient is 78 year old female with history of coronary artery disease patient was brought to emergency department after see had fell as see lost her balance and patient was found on the floor knee her stairs, patient had sustained right upper extremity injury resulting in a displaced midshaft spiral fracture right humerus with varus angulation patient is seen by orthopedic surgeon if possible manage conservatively if not patient may need ORIF will continue to monitor, patient also has elevated tropes with history of coronary artery disease patient is seen by speech correction consultant patient had a cardiac echo shows moderately reduced ejection fraction 35%, speech correction consultant is requesting records from her speech correction consultant at the [facility] and further recommendation to follow, patient was seen by orthopedic surgeon after discussing patient and the surgeon has opted conservative management and patient was placed on placed in a coaptation arm brace, today patient son is present, apparently patient did not give great detail about her diabetes upon arrival and her blood sugars a her running in 400s, patient takes 70/30, 75 units in the bedtime and 45 units at breakfast, been monitoring patient, start the patient on Lantus 20 units b.i.d. monitored with sliding scale and adjust her Lantus, we have consulted childbirth educator for further recommendation, patient is being evaluated for rehab and patient will benefit going to rehab before discharging home. on 10/05 patient was on Lantus 30 units b.i.d. and sliding scale however blood sugars were in 200 to 300, increased Lantus to 40 units b.i.d. continued to monitor with sliding scale, today patient blood sugars close to 200 clinically stable awaiting placement to rehab possibly on Tuesday. (2) Elevated troponin: Code(s): R79.89 - Other specified abnormal findings of blood chemistry Status: Acute Assessment and Plan: May be secondary to chest trauma from fall. CK is mildly elevated. Trend troponin. Monitor for chest pain. Cardiology has been consulted and will evaluate the patient in the morning. Continue telemetry. Continue Cardiology recommendations. (3) Urinary tract infection: Qualifiers: Hematuria presence: without hematuria Urinary tract infection type: site unspecified Qualified Code(s): N39.0 - Urinary tract infection, site not specified Code(s): N39.0 - Urinary tract infection, site not specified Status: Acute Assessment and Plan: Continue ceftriaxone. Urine culture pending. Urine culture is growing Klebsiella pneumonia sensitive to Rocephin will continue (4) Transaminitis: Code(s): R74.0 - Nonspecific elevation of levels of transaminase and lactic acid dehydrogenase [LDH] Status: Chronic Assessment and Plan: Likely secondary to CONTRERAS that the patient has been diagnosed with in the past. Monitor LFTs. (5) Diabetes mellitus with neurological manifestation: Qualifiers: Diabetes mellitus type: type 2 Diabetes mellitus fci insulin use: with fci use Diabetes mellitus complication detail: with unspecified neuropathy Qualified Code(s): E11.40 - Type 2 diabetes mellitus with diabetic neuropathy, unspecified; Z79.4 - [facility] (current) use of insulin Code(s): E11.49 - Type 2 diabetes mellitus with other diabetic neurological complication Status: Chronic Assessment and Plan: Accuchec
[2019-10-07 16:36] LABS: Glucose Point of Care 270 (65-105)
[2019-10-07 20:45] LABS: Glucose Point of Care 250 (65-105)
[2019-10-08] VITALS (7 sets, daily range): BP systolic 143–150; BP diastolic 49; PULSE 62–81; RESP 18; TEMP 35.7–35.9; O2SAT 95–97
[2019-10-08 02:10] LABS: Glucose Point of Care 214 (65-105)
[2019-10-08 05:44] LABS: Hematocrit 37.6 % (37.0-47.0); Hemoglobin 12.6 g/dL (12.0-15.0); Mean Corpuscular HGB Conc 33.5 g/dl (32-36); Mean Corpuscular Hemoglobin 30.3 pg (26-34); Mean Corpuscular Volume 90.4 fl (80-100); Mean Platelet Volume 9.3 fl (7.4-10.4); Platelet Count Result 233 k/mm3 (150-375); Red Blood Count 4.16 M/mm3 (4.2-5.4); Red Cell Distribution Width 12.8 % (11.5-14.5); White Blood Count 8.5 K/mm3 (4.5-10.0)
[2019-10-08 06:03] LABS: Blood Urea Nitrogen 16 mg/dL (7-17); Calcium 8.6 mg/dL (8.4-10.2); Carbon Dioxide 27 mmol/L (22-30); Chloride 103 mmol/L (98-107); Estimated CRCL calculation 54 ml/min; Estimated Glomerular Filt Rate > 60; Glucose 173 mg/dL (65-105); Potassium 3.6 mmol/L (3.4-5.0); Sodium 138 mmol/L (137-145)
[2019-10-08 08:01] LABS: Glucose Point of Care 138 (65-105)
[2019-10-08] MEDS: SIMVASTATIN 20 MG TABLET PO (09:32)
[2019-10-08] MEDS: ASPIRIN 81 MG ENTERIC TABLET PO (09:32)
[2019-10-08] MEDS: ISOSORBIDE MONONITRATE 30 MG TAB.ER.24H PO (09:32)
[2019-10-08] MEDS: FUROSEMIDE 20 MG TABLET PO (09:32)
[2019-10-08] MEDS: LOSARTAN POTASSIUM 50 MG TABLET PO (09:33)
[2019-10-08] MEDS: INSULIN GLARGINE (*BKC) 100 UNITS/ML 40 UNITS SUB-Q (09:58)
[2019-10-08] MEDS: FAMOTIDINE 20 MG/2 ML VIAL IV PUSH (10:36)
--- NOTE | 2019-10-08 11:33 | PM.DS ---
DS: Admitting Diagnosis Admitting Diagnosis Admitting Diagnosis: Displaced spiral fracture of shaft of humerus, right arm, initial encounter for closed fracture DS: Discharge Diagnosis Discharge Diagnosis (1) Closed fracture of right humerus: Qualifiers: Encounter type: initial encounter Fracture alignment: displaced Fracture morphology: spiral Humerus Location: shaft Qualified Code(s): S42.341A - Displaced spiral fracture of shaft of humerus, right arm, initial encounter for closed fracture Code(s): S42.301A - Unspecified fracture of shaft of humerus, right arm, initial encounter for closed fracture Status: Acute Assessment and Plan: 10/07/19 14:31 Patient is 78 year old female with history of coronary artery disease patient was brought to emergency department after see had fell as see lost her balance and patient was found on the floor knee her stairs, patient had sustained right upper extremity injury resulting in a displaced midshaft spiral fracture right humerus with varus angulation patient is seen by orthopedic surgeon if possible manage conservatively if not patient may need ORIF will continue to monitor, patient also has elevated tropes with history of coronary artery disease patient is seen by terminal superintendent patient had a cardiac echo shows moderately reduced ejection fraction 35%, terminal superintendent is requesting records from her terminal superintendent at the [facility] and further recommendation to follow, patient was seen by orthopedic surgeon after discussing patient and the surgeon has opted conservative management and patient was placed on placed in a coaptation arm brace, today patient son is present, apparently patient did not give great detail about her diabetes upon arrival and her blood sugars a her running in 400s, patient takes 70/30, 75 units in the bedtime and 45 units at breakfast, been monitoring patient, start the patient on Lantus 20 units b.i.d. monitored with sliding scale and adjust her Lantus, we have consulted healthcare educator for further recommendation, patient is being evaluated for rehab and patient will benefit going to rehab before discharging home. on 10/05 patient was on Lantus 30 units b.i.d. and sliding scale however blood sugars were in 200 to 300, increased Lantus to 40 units b.i.d. continued to monitor with sliding scale, today patient blood sugars close to 200 clinically stable awaiting placement to rehab possibly on Tuesday. (2) Elevated troponin: Code(s): R79.89 - Other specified abnormal findings of blood chemistry Status: Acute Assessment and Plan: May be secondary to chest trauma from fall. CK is mildly elevated. Trend troponin. Monitor for chest pain. Cardiology has been consulted and will evaluate the patient in the morning. Continue telemetry. Continue Cardiology recommendations. (3) Urinary tract infection: Qualifiers: Hematuria presence: without hematuria Urinary tract infection type: site unspecified Qualified Code(s): N39.0 - Urinary tract infection, site not specified Code(s): N39.0 - Urinary tract infection, site not specified Status: Acute Assessment and Plan: Continue ceftriaxone. Urine culture pending. Urine culture is growing Klebsiella pneumonia sensitive to Rocephin will continue (4) Transaminitis: Code(s): R74.0 - Nonspecific elevation of levels of transaminase and lactic acid dehydrogenase [LDH] Status: Chronic Assessment and Plan: Likely secondary to CONTRERAS that the patient has been diagnosed with in the past. Monitor LFTs. (5) Diabetes mellitus with neurological manifestation: Qualifiers: Diabetes mellitus type: type 2 Diabetes mellitus prison insulin use: with prison use Diabetes mellitus complication detail: with unspecified neuropathy Qualified Code(s): E11.40 - Type 2 diabetes mellitus with diabetic neuropathy, unspecified; Z79.4 - nursing home (current)
[2019-10-08 11:44] LABS: Glucose Point of Care 303 (65-105)
[2019-10-08] MEDS: INSULIN ASPART (*BKC) 100 UNITS/ML SUB-Q ×2 (11:46→16:32)
[2019-10-08 16:31] LABS: Glucose Point of Care 376 (65-105)
== END 2019-10-08 18:30 | DRG 562 ==
LOC: ANHED 22:38 → ANHIMU 22:54 → ANH3MED 10-04 23:13 → ANHIMU 10-10 15:19
PROVIDERS: Emergency Medicine; Emergency Medicine Emergency Medical Services; Internal Medicine; Admitting Provider Family Medicine; Emergency Provider Emergency Medicine; PCP Internal Medicine; Visit Provider Family Medicine
DX: S42.341A Displaced spiral fracture of shaft of humerus, right arm, initial encounter for closed fracture (principal); I21.4 Non-ST elevation (NSTEMI) myocardial infarction; N39.0 Urinary tract infection, site not specified; Z68.41 Body mass index [BMI] 40.0-44.9, adult; I50.32 Chronic diastolic (congestive) heart failure; Z11.59 Encounter for screening for other viral diseases; I11.0 Hypertensive heart disease with heart failure; B96.1 Klebsiella pneumoniae [K. pneumoniae] as the cause of diseases classified elsewhere; I25.10 Atherosclerotic heart disease of native coronary artery without angina pectoris; E11.42 Type 2 diabetes mellitus with diabetic polyneuropathy; M19.90 Unspecified osteoarthritis, unspecified site; E78.5 Hyperlipidemia, unspecified; G47.30 Sleep apnea, unspecified; K75.81 Nonalcoholic steatohepatitis (NASH); E66.01 Morbid (severe) obesity due to excess calories; W19.XXXA Unspecified fall, initial encounter; Z95.5 Presence of coronary angioplasty implant and graft; I25.2 Old myocardial infarction; Z98.84 Bariatric surgery status; Z90.710 Acquired absence of both cervix and uterus; Z87.891 Personal history of nicotine dependence; Z95.810 Presence of automatic (implantable) cardiac defibrillator; Z91.81 History of falling; Z79.4 Long term (current) use of insulin
CPT/HCPCS: 29125; 36415; 51701; 70450; 71101; 72125; 73030; 73060; 80048; 80053; 80061; 81001; 82550; 83036; 83880; 84484; 85025; 85027; 87077; 87086; 87088; 87186; 87635; 93005; 93306; 96361; 96365; 96367; 96375; 96376; 97110; 97116; 97161; 97166; 97530; 97535; 99285; A9270; C9803; G0378; J0131; J0696; J1815; J2270; J2405; J7040; J7120; Q9957; U0003

== ENCOUNTER 2020-04-18 15:00 | Outpatient (CLI) | payer MEDICARE, BC, SELFPAY ==
[2020-04-18 15:28] LABS: Alanine Aminotransferase 39 U/L (4-35); Alkaline Phosphatase 88 U/L (38-126); Anion Gap 4 mmol/L (8-16); Aspartate Amino Transferase 35 U/L (14-36); Bilirubin,Total 1.1 mg/dL (0.2-1.3); Blood Urea Nitrogen 21 mg/dL (7-17); Calcium 8.7 mg/dL (8.4-10.2); Carbon Dioxide 34 mmol/L (22-30); Chloride 94 mmol/L (98-107); Cholesterol 173 mg/dL (0-200); Estimated Glomerular Filt Rate 44; Glucose 308 mg/dL (65-105); HDL Direct 44 mg/dL; Sodium 132 mmol/L (137-145); Triglycerides 95 mg/dL (<150)
[2020-04-18 15:29] LABS: Hemoglobin A1C 10.4 % (<5.7)
[2020-04-18 15:38] LABS: LDL Cholesterol Direct 107 mg/dL
== END 2020-04-18 15:01 | disposition home or self-care (01) ==
LOC: ANHLAB 15:02
PROVIDERS: PCP Internal Medicine; Visit Provider Nurse Practitioner
DX: E78.5 Hyperlipidemia, unspecified (principal); E11.9 Type 2 diabetes mellitus without complications
CPT/HCPCS: 36415; 80053; 80061; 83036

== ENCOUNTER 2020-11-12 15:39 | Outpatient (CLI) | payer MEDICARE, BC, SELFPAY ==
--- NOTE | ~2020-11-12 | XR_ITS ---
MODIFIED ESOPHAGRAM HISTORY: Dysphagia. TECHNIQUE: Modified barium esophagram was performed on 11/12/2020. I administered fluoroscopy and perf ormed the exam with speech pathologist. Patient was seated for lateral fluoroscopic imaging for shayy stion of thin liquids, pudding, solids and quantified amounts, followed by thin liquids in uncontroll ed amounts. This was recorded on tape. A single fluoroscopic spot image was also recorded. The DAP fo r this procedure was 2.351 Gycm2. The amount of fluoroscopy time used during this procedure was 3.2 m inutes. FINDINGS: Oral stage: Adequate function. Pharyngeal stage: Adequate function. Cervical/esophageal stage: Adequate function. IMPRESSION: Patient tolerated regular consistency oral feedings in the upright position. Please jyoti elate with speech pathologist findings and specific feeding recommendations. Reviewed, dictated and finalized at location A. IMPRESSION: Patient tolerated regular consistency oral feedings in the upright position. Please correlate with speech pathologist findings and specific feedi ng recommendations.
--- NOTE | 2020-11-14 09:19 | STOPEVAL ---
MODIFIED BARIUM SWALLOW EVALUATION: Thank you for referring Lidia Ortega to [facility].? Attending Provider: Seth Hooker DO Outpatient Past Medical History Neurological History Hx Neurological Disorders No Significant History Cardiovascular History Hx Congestive Heart Failure Yes Hx Coronary Stent Yes Hx Hypercholesterolemia Yes Hx Hypertension Yes Hx Myocardial Infarction Yes Respiratory History Hx Asthma Yes Hx Sleep Apnea Yes Gastrointestinal History Hx Appendectomy Yes Hx Gastric Bypass Surgery Yes Hx Gastroesophageal Reflux Disease Yes Genitourinary History Hx Other Genitourinary Disorders Yes: OVERACTIVE BLADDER Musculoskeletal History Hx Arthritis Yes Hx Fractures Yes: TODAY FX RIGHT ARM Hematological History Hx Hematological Disorders No Significant History Endocrine History Hx Diabetes Yes HEENT History Hx Cataracts Yes Integumentary History Hx Skin Disorders No Significant History Reproductive History Hx Hysterectomy Yes Psychosocial History Hx Anxiety Yes Hx Depression Yes Pain History Has Past Pain Affected Your Daily Life Yes: ARTHRITIS Anesthesia History Hx Anesthesia Reactions No Significant History Modified Barium Swallow Evaluation Recent Swallowing History Reports Dysphagia Yes: sometimes I choke ; 1-2 times a week; the last time was on beef Onset of Dysphagia 2 years ago History of Pneumonia No Reported Difficult Consistencies Solids Intake Method Prior to Swallow Oral Evaluation Diet Prior to Swallow Evaluation Regular, Level 7 Dentition Comments missing teeth Consistency Mixed Consistency Method of Presentation Spoon Oral Preparatory Symptoms None Oral Phase Symptoms None Pharyngeal Phase Symptoms Within Functional Limits Severity of Vallecular Residue None - 0% No Residue Severity of Pyriform Sinus Residue None - 0% No Residue Pharyngeal Phase Comments trace coating on backside of epiglottis but was cleared with pt's dry swallow Pureed Consistency Method of Presentation Spoon Oral Preparatory Symptoms None Oral Phase Symptoms None Pharyngeal Phase Symptoms None Severity of Vallecular Residue None - 0% No Residue Severity of Pyriform Sinus Residue None - 0% No Residue 8 Point Laryngeal Penetration-Aspiration Material Does Not Enter Airway Scale Cervical/Esophageal Symptoms None Thin Uncontrolled 2 Method of Presentation Straw Oral Preparatory Symptoms
== END 2020-11-12 15:40 | disposition home or self-care (01) ==
PROVIDERS: PCP Internal Medicine; Visit Provider Internal Medicine
DX: R13.10 Dysphagia, unspecified (principal)
CPT/HCPCS: 92611

== ENCOUNTER 2020-12-22 14:57 | Outpatient (CLI) | payer MEDICARE, BC, SELFPAY ==
[2020-12-22 15:43] LABS: Alanine Aminotransferase 35 U/L (4-35); Albumin Level 4.6 g/dL (3.5-5.1); Alkaline Phosphatase 77 U/L (38-126); Anion Gap 11 mmol/L (8-16); Aspartate Amino Transferase 32 U/L (14-36); Bilirubin,Total 1.1 mg/dL (0.2-1.3); Blood Urea Nitrogen 19 mg/dL (7-17); Carbon Dioxide 28 mmol/L (22-30); Chloride 92 mmol/L (98-107); Cholesterol 130 mg/dL (0-200); Estimated Glomerular Filt Rate 40; Glucose 458 mg/dL (65-110); HDL Direct 45 mg/dL; Potassium 3.9 mmol/L (3.4-5.0); Sodium 131 mmol/L (137-145); Triglycerides 90 mg/dL (<150)
[2020-12-22 15:54] LABS: LDL Cholesterol Direct 67 mg/dL
[2020-12-22 16:26] LABS: Hemoglobin A1C 13.2 % (<5.7)
[2020-12-22 17:36] LABS: Vitamin D 25 Hydroxy 35.6 ng/mL
== END 2020-12-22 14:58 | disposition home or self-care (01) ==
LOC: ANHIMG 15:02
PROVIDERS: PCP Internal Medicine; Visit Provider Internal Medicine
DX: E78.5 Hyperlipidemia, unspecified (principal); I10 Essential (primary) hypertension; K75.81 Nonalcoholic steatohepatitis (NASH); E55.9 Vitamin D deficiency, unspecified; E11.9 Type 2 diabetes mellitus without complications
CPT/HCPCS: 36415; 80053; 80061; 82306; 83036

== ENCOUNTER 2021-06-25 17:34 | Outpatient (CLI) | payer MEDICARE, BC, SELFPAY ==
[2021-06-25 19:43] LABS: Vitamin D 25 Hydroxy 46.7 ng/mL
[2021-06-25 19:46] LABS: Alanine Aminotransferase 26 U/L (4-35); Albumin Level 4.3 g/dL (3.5-5.1); Alkaline Phosphatase 68 U/L (38-126); Anion Gap 9 mmol/L (8-16); Aspartate Amino Transferase 32 U/L (14-36); Bilirubin,Total 1.2 mg/dL (0.2-1.3); Blood Urea Nitrogen 18 mg/dL (7-17); Calcium 8.7 mg/dL (8.4-10.2); Carbon Dioxide 27 mmol/L (22-30); Chloride 98 mmol/L (98-107); Cholesterol 143 mg/dL (0-200); Estimated Glomerular Filt Rate 40; Glucose 93 mg/dL (65-110); HDL Direct 45 mg/dL; Potassium 3.8 mmol/L (3.4-5.0); Sodium 134 mmol/L (137-145); Triglycerides 97 mg/dL (<150)
[2021-06-25 19:58] LABS: LDL Cholesterol Direct 66 mg/dL
== END 2021-06-25 17:35 | disposition home or self-care (01) ==
LOC: ANHLAB 17:39
PROVIDERS: PCP Internal Medicine; Visit Provider Nurse Practitioner
DX: N18.9 Chronic kidney disease, unspecified (principal); G47.00 Insomnia, unspecified; E11.9 Type 2 diabetes mellitus without complications; E78.49 Other hyperlipidemia; E55.9 Vitamin D deficiency, unspecified; M10.9 Gout, unspecified
CPT/HCPCS: 36415; 80053; 80061; 82306; 83036; 84443; 84550

== ENCOUNTER 2021-11-27 17:07 | Outpatient (CLI) | payer MEDICARE, BC, SELFPAY ==
[2021-11-27 17:41] LABS: Alanine Aminotransferase 30 U/L (6-35); Albumin Level 4.2 g/dL (3.5-5.1); Alkaline Phosphatase 73 U/L (38-126); Anion Gap 9 mmol/L (8-16); Aspartate Amino Transferase 29 U/L (14-36); Bilirubin,Total 1.1 mg/dL (0.2-1.3); Blood Urea Nitrogen 19 mg/dL (7-17); Calcium 9.1 mg/dL (8.4-10.2); Carbon Dioxide 28 mmol/L (22-30); Chloride 104 mmol/L (98-107); Cholesterol 136 mg/dL (0-200); Estimated Glomerular Filt Rate 33; Glucose 164 mg/dL (65-110); HDL Direct 45 mg/dL; Sodium 141 mmol/L (137-145); Triglycerides 99 mg/dL (<150)
[2021-11-27 17:50] LABS: Hemoglobin A1C 10.4 % (<5.7)
[2021-11-27 17:51] LABS: LDL Cholesterol Direct 58 mg/dL
== END 2021-11-27 17:08 | disposition home or self-care (01) ==
LOC: ANHLAB 17:08
PROVIDERS: PCP Internal Medicine; Visit Provider Internal Medicine
DX: E11.65 Type 2 diabetes mellitus with hyperglycemia (principal); E78.5 Hyperlipidemia, unspecified; I10 Essential (primary) hypertension
CPT/HCPCS: 36415; 80053; 80061; 83036

== ENCOUNTER 2022-02-04 00:57 | Inpatient (IN) | payer MEDICARE, BC, SELFPAY ==
[2022-02-04] VITALS (10 sets, daily range): BP systolic 123–163; BP diastolic 46–56; PULSE 67–77; RESP 14–20; TEMP 36.2–37.2; O2SAT 95–100; BMI 34.0
--- NOTE | 2022-02-04 | ECHO_ITS ---
Patient Info Name: Lidia Ortega Age: 81 years : 1940 Gender: Female Ht: 63 in Wt: 192 lbs BSA: 2.00 m2 HR: 68 bpm BP: 128 / 55 mmHg Heart Rhythm: Sinus Rhythm Technical Quality: Poor Exam Date: 02/04/2022 3:43 PM Exam Location: [facility] Pulmonary Patient Status: Inpatient Admit Date: 02/04/2022 Staff Ordering Physician: Sim Gaytan MD Consumer Sales Representative: Arlene Dale RDCS Attending Provider: Santi Webber M.A., MD Exam Type: CA echo dop color flow w con Study Info Complete two-dimensional, color flow and Doppler transthoracic echocardiogram is performed with contrast to opacify the left ventricle and to improve the deliniation of the left ventricle endocardial borders. Contrast/Agitated Saline Contrast/Ag. Saline: Definity Amount: 2.00 ml Administered By: Arlene Dale RDCS Existing IV Access: Yes IV Access Condition: patent with no signs of infiltration Summary 1. Technically difficult echocardiogram with poor image quality/definity contrast was injected to improve visualization. 2. Mild LV enlargement with moderate hypokinesia estimated ejection fraction 35-40%. 3. Grade 1 diastolic noncompliance. 4. Compared with examination of September of 2019 the findings are similar, image quality is difficult. Left Ventricle Left ventricular chamber dimension is mildly enlarged. Left ventricular systolic function is moderately reduced, estimated at 35-40%. The left ventricular diastolic function is grade I diastolic dysfunction. Right Ventricle Right ventricular chamber dimension is normal. Left Atria Left atrial chamber dimension is normal. Right Atria Right atrial chamber dimension is not well visualized. Aortic Valve The aortic valve is trileaflet. There is mild aortic valve sclerosis. Pulmonic Valve The pulmonic valve is not well visualized. Mitral Valve The mitral valve has normal leaflets. Tricuspid Valve The tricuspid valve leaflets are not well visualized. Pericardium/Pleural The pericardium appears normal. Aorta The aortic root size at the sinus of Valsalva is normal. Left Ventricular Outflow Tract Name Value Normal LVOT Doppler LVOT Peak Gradient 4 mmHg LVOT Mean Gradient 2 mmHg LVOT VTI 19.20 cm LVOT VTI/AV VTI Ratio 0.91 Mitral Valve Name Value Normal MV Doppler MV Peak Gradient 4 mmHg MV Mean Gradient 1 mmHg MV Decel [place] 337.49 cm/s2 MV PHT 0 s MV Area (PHT) 4.50 cm2 4.00-5.00 MV Diastolic Function MV E Peak Velocity 56.94 cm/s MV A Peak Velocity 93.24 cm/s MV E/A
--- NOTE | ~2022-02-04 | CT_ITS ---
EXAMINATION: CT abdomen pelvis w con DATE: 02/04/2022 02:54 INDICATION: Upper abdominal pain. Transaminitis. TECHNIQUE: Computed tomography (CT) of the abdomen and pelvis was performed with 100 mL Omnipaque-350 intravenous contrast. Automated exposure control and iterative reconstruction technique were employe d. The dose-length product was 1150.43 mGy-cm. COMPARISON: 02/21/2014 FINDINGS: Mild discoid atelectasis at the lingula. Heart size is normal. Dual lead pacemaker/AICD seen with estefanía ds at the right atrium and apex of the right ventricle. Very small pericardial effusion. Small slidin g-type hiatal hernia with wall thickening in the distal esophagus which could be seen with reflux. Po stoperative change of prior rectocolic Abigail-en-Y gastric bypass with jejunojejunal anastomosis in the left abdomen. Somewhat heterogeneous pattern of diffuse hepatic steatosis. 2.5 cm hepatic cyst. Ther e were multiple calcified gallstones within the dependent aspect of the gallbladder which is dilated to 4.5 cm in maximal diameter with mild pericholecystic inflammatory stranding and very small amount of fluid at the gallbladder fossa and along the livan hepatis suspicious for acute cholecystitis. The common bile duct measures 7 mm which is at the upper limits of normal for age. There is dilation of the main pancreatic duct which measures up to 7 mm in maximal diameter at the head of the pancreas. P ancreas appears otherwise normal with no peripancreatic inflammatory stranding to suggest acute inter stitial pancreatitis. There is mild intrahepatic biliary ductal dilation most prominent in the latera l segment of the left hepatic lobe. Spleen, bilateral adrenal glands and kidneys are normal. No bowel obstruction. Postoperative change of prior ventral hernia mesh repair. There is edematous-appearing wall thickening of the bladder with mucosal enhancement tiny amount of intraluminal gas region concer n for cystitis. The uterus is not identified and has likely been surgically resected. No abscess or f ree intraperitoneal gas. Moderate to severe spondylosis in the mid to lower lumbar spine. IMPRESSION: 1. Gallstones with dilated gallbladder, mild pericholecystic fluid and stranding along with mild intr a and extra hepatic biliary ductal dilation and dilation of the main pancreatic duct consistent with acute cholecystitis and potentially distal obstructing stone. Correlate for Johns sign and could con replenisher further evaluation with MRCP, ERCP or HIDA scan as clinically indicated. 2. Thickened bladder wall. Mucosal enhancement and tiny foci of intraluminal gas suspicious for cysti tis. Correlate with urinalysis and for any recent [place] catheterization or bladder instrumentation. 3. Small sliding-type hiatal hernia with edematous-appearing wall thickening the distal esophagus whi ch could be related to reflux esophagitis. 4. Somewhat heterogeneous diffuse hepatic steatosis. Reviewed, dictated and finalized at location A. TY ASSESSOR IMPRESSION: 1. Gallstones with dilated gallbladder, mild pericholecystic fluid and strandin g along with mild intra and extra hepatic biliary ductal dilation and dilation of the main pancreatic duct consistent with acute cholecystitis and potentially distal obstructing stone. Correlate for Johns sign and could consider further evaluation with MRCP, ERCP or HIDA scan as clinically indicated. 2. Thickened bladder wall. Mucosal enhancement and tiny foci of intraluminal ga s suspicious for cystitis. Correlate with urinalysis and for any recent Stafford c atheterization or bladder instrumentation. 3. Small sliding-type hiatal hernia with edematous-appearing wall thickening th e distal esophagus which could be related to reflux esophagitis. 4. Somewhat heterogeneous diffuse hepatic steatosis.
--- NOTE | ~2022-02-04 | CT_ITS ---
EXAMINATION: CT abdomen pelvis w con DATE: 02/08/2022 08:00 INDICATION: Abdominal pain. Transaminitis. TECHNIQUE: Computed tomography (CT) of the abdomen and pelvis was performed with 100 mL Omnipaque-350 intravenous contrast. Automated exposure control and iterative reconstruction technique were employe d. The dose-length product was 1188.69 mGy-cm. COMPARISON: 02/04/2022 FINDINGS: Very small right pleural effusion and trace left pleural effusion. Dependent atelectasis in the bilat eral lower lobes and mild discoid atelectasis at the lingula. Heart size is normal. Dual lead pacemak er/AICD seen with leads in the tips at the right atrial appendage and apex of the right ventricle. No pericardial effusion. Incidentally noted is mild plaque in the distal esophagus with small sliding-t ype hiatal hernia. Retrocardiac Abigail-en-Y gastric bypass procedure with jejunojejunal anastomosis in the left abdomen. There is also been prior ventral hernia mesh repair. 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 2.4 cm cyst in segment IVb of the liver. No intrahepatic biliary ductal dilation. Ther e are multiple gallstones within the gallbladder which has decreased slightly in diameter currently 3 .9 cm versus 4.5 cm. There is some residual pericholecystic stranding and trace amount of fluid along the gallbladder fossa. The common bile duct is minimally decreased in diameter currently measuring 6 mm which is at the upper limits of normal. The main pancreatic duct remains dilated but has decrease d from 7 mm in maximal diameter at the head of the pancreas to currently measuring 5 mm . There is a minimal amount of peripancreatic stranding about the tail of the pancreas consistent with acute inter stitial pancreatitis. Spleen, bilateral adrenal glands and kidneys are normal. No bowel obstruction. The appendix is not visualized. No pericecal inflammatory change to suggest acute appendicitis. The b ladder is more distended than on the prior study with improvement in the prior wall thickening. There remains some residual stranding in the immediately surrounding fat which suggests improving cystitis . Minimal ascites in the pelvis. No abscess or free intraperitoneal gas. No pathologically enlarged a bdominal or pelvic lymphadenopathy. Moderate to severe lower lumbar spondylosis. IMPRESSION: 1. Thrombosis of the left portal vein. 2. Cholelithiasis with persistent mild pericholecystic stranding but some decrease in degree of diste ntion of the gallbladder and decrease in prior biliary and pancreatic ductal dilation, the former now at upper limits of normal and the latter still mildly dilated. There is also some peripancreatic str anding at the tail of the pancreas. Constellation of findings would be consistent with some improveme nt in a likely distal biliary/pancreatic ductal obstruction potentially due to nonvisualized stone wi th associated cholecystitis and acute interstitial pancreatitis. 3. Improving cystitis. 4. Small filling type hiatal hernia with edematous-appearing wall thickening in the distal esophagus which could be related to reflux esophagitis. Reviewed, dictated and finalized at location B. CHEF IMPRESSION: 1. Thrombosis of the left portal vein. 2. Cholelithiasis with persistent mild pericholecystic stranding but some decre ase in degree of distention of the gallbladder and decrease in prior biliary an d pancreatic ductal dilation, the former now at upper limits of normal and the latter still mildly dilated. There is also some peripancreatic stranding at the tail of the pancreas. Constellation of findings would be consistent with some improvement in a likely distal biliary/pancreatic ductal obstruction potentiall y due to nonvisualized stone with associated cholecystitis and acute interstiti al pa
--- NOTE | ~2022-02-04 | CT_ITS ---
EXAMINATION: CT brain wo con INDICATION: Transient alteration of awareness COMPARISON: 10/01/2019 TECHNIQUE: Standard unenhanced head CT. The dose-length product (DLP) was 605.33 mGy-cm. The mA was a djusted according to patient size. Iterative reconstruction technique was employed. FINDINGS: There is no acute intraparenchymal hemorrhage. No evidence of mass lesion. No evidence of a cute infarction. There is moderate periventricular and subcortical hypodensity probably related to sm all vessel ischemic disease. There is moderate prominence of the sulci and ventricles related to cere bral atrophy. Intracranial calcified cerebral atherosclerosis is noted. There are no extra-axial aileen ections. There is no mass effect or midline shift. Changes in the globes are likely from ocular lens surgery. The visualized sinuses and mastoid air cells are well aerated. IMPRESSION: 1. No acute intracranial abnormality. 2. Age related findings. Reviewed, dictated and finalized at location B. TO GRADER
--- NOTE | 2022-02-04 01:19 | ED.GENADULT ---
HPI - General Adult General Chief complaint: Unspecified Stated complaint: AMS, SICK CASE, UTI Time Seen by Provider: 02/04/22 00:59 History of Present Illness HPI narrative: 81-year-old female presenting to the emergency department for evaluation of increased altered mental status. Son states that the patient has been sick over the last 2 nights. He reports tonight she was having nausea and vomiting complaining of upper abdominal pain. He states the patient was attempting to get out of her chair and did not even have the strength to that. He reports he does have a history of urinary tract infections and had previously been on a prophylactic antibiotic. He does not suspect that she is currently on this antibiotic currently. Related Data Home Medications Medication Instructions Recorded Confirmed calcium carbonate 500 mg-vitamin 1 tablet PO DAILY 04/03/19 12/31/21 D3 10 mcg (400 unit) tablet (Calcium 500 + D) aspirin 81 mg tablet,delayed 81 mg PO DAILY 10/01/19 12/31/21 release multivitamin 1 tablet PO DAILY 10/01/19 12/31/21 carvedilol 12.5 mg tablet 12.5 mg PO ONCE 03/17/21 12/31/21 rosuvastatin 20 mg tablet 20 mg PO DAILY 03/17/21 12/31/21 Allergies Allergy/AdvReac Type Severity Reaction Status Date / Time No Known Allergies Allergy Unknown Verified 12/31/21 13:35 [facility] Past Medical History Medical History (HFpEF) heart failure with preserved ejection fraction Anxiety Arthritis BPPV (benign paroxysmal positional vertigo) CAD (coronary artery disease) CHF (congestive heart failure) CKD (chronic kidney disease) Closed fracture of right humerus Constipation COVID-19 Depression Diabetes Diplopia Dizziness Eczema Elevated troponin Gout Hyperlipidemia Hypertension ICD (implantable cardioverter-defibrillator) in place Insomnia Left leg swelling CONTRERAS (nonalcoholic steatohepatitis) Neuropathy NSTEMI (non-ST elevated myocardial infarction) Organic sleep apnea Osteoarthritis Seasonal allergies Sleep apnea Sleep disorder Transaminitis Type 2 diabetes mellitus Urinary frequency Vision abnormalities Vitamin D deficiency Weight gain Weight loss Surgical History Surgical History H/O: hysterectomy History of carpal tunnel repair Hx of gastric bypass Hx of heart artery stent Family History Family History Father Heart disease Mother Heart disease Sibling Heart disease Father Acute myocardial infarction Patient's father is Mother Acute myocardial infarction Family history of diabetes mellitus in first degree relative, Onset Age: 79 Patient's mother is Diabetes mellitus Sibling Family history of malignant neoplasm Other Arthritis Family history of obesity Hypertension Social History Social History Social History: Lidia Ortega lives at her home with her son. She is retired. She is a former smoker and believes she quit approximately 12 years ago. Smoking packs per day: 2 Smoking cigarettes per day: 40.0 Years smoked: 58 Smoking pack-years: 116.00 Smoking status: Former smoker Tobacco type: cigarettes Second hand tobacco smoke exposure: No Smoking end date: 03/28/00 Alcohol intake: former Substance use: never Substance use type: does not use Additional living arrangements comments: Son lives with her Gender identity (if verbalized by the patient): Female Spiritual care concerns: No Course Course Emergency Course: Patient was treated with Rocephin for an underlying urinary tract infection. Patient's CMP also came back elevated with elevated liver enzymes including T bili, AST, ALT, alk phos. Case was discussed with Dr. Gaitan for GI and he will see the patient as consult. Discussed case
[2022-02-04 01:45] LABS: Appearance Urine Slightly Cloudy (Clear); Bilirubin Urine 2+ (Negative); Blood Urine 2+ (Negative); Glucose Urine UA Negative (Negative); Ketones Urine 1+ mg/dL (Negative); Leukocyte Esterase Ur 3+ LEU/UL (Negative); Nitrate Urine Negative (Negative); Protein Urine 2+ mg/dL (Negative); Specific Grav Ur 1.015 (1.001-1.035); pH Urine 5.5 (5.0-9.0)
[2022-02-04 01:54] LABS: Add Urine Microscopic? YES; Color Urine Dark Yellow (Yellow)
[2022-02-04 01:58] LABS: Bacteria Urine 4+ /hpf; Mucus Urine Heavy /lpf; RBC Urine 21-50 /hpf (0-2); Squamous Epithelial Cell Urine Few /hpf (Few); WBC Urine >75 /hpf
[2022-02-04 02:03] LABS: Basophils Percent Auto 0.2 % (0.2-1.2); Eosinophils Percent Auto 0.1 % (0-4.4); Hematocrit 41.1 % (37.0-47.0); Hemoglobin 13.9 g/dL (12.0-15.0); Immature Granulocyte Absolute 0.05 K/mm3 (0.00-0.031); Immature Granulocyte Percent A 0.4 % (0-0.5); Lymphocytes Percent Auto 1.6 % (18.3-44.2); Mean Corpuscular HGB Conc 33.8 g/dl (32-36); Mean Corpuscular Hemoglobin 29.6 pg (26-34); Mean Corpuscular Volume 87.4 fl (80-100); Mean Platelet Volume 10.4 fl (7.4-10.4); Monocytes Percent Auto 7.8 % (2.6-8.5); Neutrophils Absolute Auto 11.6 K/mm3 (1.3-6.7); Neutrophils Percent Auto 89.9 % (45.5-73.1); Platelet Count Result 226 k/mm3 (150-375); White Blood Count 12.9 K/mm3 (4.5-10.0)
[2022-02-04 02:15] LABS: Alanine Aminotransferase 498 U/L (6-35); Albumin Level 3.9 g/dL (3.5-5.1); Alkaline Phosphatase 234 U/L (38-126); Anion Gap 13 mmol/L (8-16); Aspartate Amino Transferase 367 U/L (14-36); Bilirubin,Total 6.6 mg/dL (0.2-1.3); Blood Urea Nitrogen 18 mg/dL (7-17); Calcium 8.5 mg/dL (8.4-10.2); Carbon Dioxide 24 mmol/L (22-30); Chloride 96 mmol/L (98-107); Estimated Glomerular Filt Rate 43; Glucose 151 mg/dL (65-110); Potassium 2.9 mmol/L (3.4-5.0); Sodium 133 mmol/L (137-145)
--- NOTE | 2022-02-04 02:31 | PC.NURSE ---
notified that second blood culture was not obtained. states it is ok to start antibiotics
[2022-02-04 02:39] LABS: Influenza A QL RT-PCR Negative (Negative); Influenza B QL RT-PCR Negative (Negative); SARS-CoV-2 RNA PCR Positive
--- NOTE | 2022-02-04 03:23 | PC.NURSE ---
noted patient had covid in december of this year per son and patient
--- NOTE | 2022-02-04 03:48 | PM.IMHP ---
H&P: HPI History of Present Illness Date/Time: 02/04/22 03:48 Chief Complaint: 81 years old female with past medical history of hypertension CHF diabetes mellitus [place] transaminitis recurrent UTI coronary artery disease recently started on ozempic patient also has history of hyperlipidemia on statin history was taken from the ER physician ER records and the patient patient start having altered mental status started 2 days ago worsening gradually associated with nausea and vomiting multiple times a day associated with right upper quadrant abdominal pain family was concerned about patient has recurrent UTI as in the past patient has similar symptoms in the ER patient was found to have leukocytosis significantly abnormal LFT CT scan of the abdomen pending GI was consulted UA was abnormal patient was admitted to the hospital for evaluation and treatment of UTI acute metabolic encephalopathy abnormal liver function tests started on empiric IV antibiotics Review of Systems Review of Systems: Twelve system review was done negative except above PMFSH Past Medical History Medical History (Updated 02/04/22 @ 04:16 by Santi Webber MD) (HFpEF) heart failure with preserved ejection fraction Anxiety Arthritis BPPV (benign paroxysmal positional vertigo) CAD (coronary artery disease) CHF (congestive heart failure) CKD (chronic kidney disease) Closed fracture of right humerus Constipation COVID-19 Depression Diabetes Diplopia Dizziness Eczema Elevated troponin Gout Hyperlipidemia Hypertension ICD (implantable cardioverter-defibrillator) in place Insomnia Left leg swelling [place] (nonalcoholic steatohepatitis) Neuropathy NSTEMI (non-ST elevated myocardial infarction) Organic sleep apnea Osteoarthritis Seasonal allergies Sleep apnea Sleep disorder Transaminitis Type 2 diabetes mellitus Urinary frequency Vision abnormalities Vitamin D deficiency Weight gain Weight loss Surgical History Surgical History H/O: hysterectomy History of carpal tunnel repair Hx of gastric bypass Hx of heart artery stent Family History Family History Father Heart disease Mother Heart disease Sibling Heart disease Father Acute myocardial infarction Patient's father is Mother Acute myocardial infarction Family history of diabetes mellitus in first degree relative, Onset Age: 79 Patient's mother is Diabetes mellitus Sibling Family history of malignant neoplasm Other Arthritis Family history of obesity Hypertension Social History Social History Social History: Lidia Ortega lives at her home with her son. She is retired. She is a former smoker and believes she quit approximately 12 years ago. Smoking packs per day: 2 Smoking cigarettes per day: 40.0 Years smoked: 58 Smoking pack-years: 116.00 Smoking status: Former smoker Tobacco type: cigarettes Second hand tobacco smoke exposure: No Smoking end date: 03/28/00 Alcohol intake: former Substance use: never Substance use type: does not use Additional living arrangements comments: Son lives with her Gender identity (if verbalized by the patient): Female Spiritual care concerns: No Meds Home Medications and Allergies Home Medications Medication Instructions Recorded Confirmed Type pen needle, diabetic 31 gauge x #30 ea 01/29/19 12/31/21 Rx 1/4 (1st Tier Unifine Pentips) losartan 50 mg tablet 50 mg PO DAILY #90 tabs 02/08/19 12/31/21 Rx calcium carbonate 500 mg-vitamin 1 tablet PO DAILY 04/03/19 12/31/21 History D3 10 mcg (400 unit) tablet (Calcium 500 + D) aspirin 81 mg tablet,delayed 81 mg PO DAILY 10/01/19 12/31/21 History release multivitamin 1 tablet PO DAILY 10/01/19 12/31/21 History furosemide 20 mg tablet (Lasix)
[2022-02-04] MEDS: POTASSIUM CHLORIDE 20 MEQ PACKET (FOR LIQUID) 40 MEQ PO (03:54)
[2022-02-04] MEDS: SODIUM CHLORIDE 0.9% IV 1,000 ML 60 ML IV CONT (04:53)
--- NOTE | 2022-02-04 05:17 | ADMGEN ---
This patient, Lidia Ortega, was admitted to [facility] Surg Room 302-01. Patient/family oriented to hospital policies and general routines including ID bracelet, bed and alarms, visiting hours, pain management, procedures, bathroom and other care routines, personal items, smoking policy, room service/diet, and visiting hours. Information on how to activate the Rapid Response Team has been discussed. Patient/Family are encouraged to report perceived risks to care and to ask questions if they do not understand what they are told or what they should do.
--- NOTE | 2022-02-04 05:36 | PC.NURSE ---
Unable to complete medication reconcilation at this time. Pt. in unaware of medications she takes at home and does not have written list. Pt. states son will bring her medications today around 10:00 so we can complete medication reconciliation. Message left to son Mak Ortega at [phone]
[2022-02-04 06:18] LABS: Ammonia < 9 umol/L (9-30)
[2022-02-04 06:19] LABS: Basophils Percent Auto 0.2 % (0.2-1.2); Eosinophils Percent Auto 0.1 % (0-4.4); Hematocrit 39.3 % (37.0-47.0); Hemoglobin 13.4 g/dL (12.0-15.0); Immature Granulocyte Absolute 0.09 K/mm3 (0.00-0.031); Immature Granulocyte Percent A 0.7 % (0-0.5); Lymphocytes Absolute Auto 0.23 K/mm3 (0.9-3.2); Lymphocytes Percent Auto 1.8 % (18.3-44.2); Mean Corpuscular HGB Conc 34.1 g/dl (32-36); Mean Corpuscular Hemoglobin 29.6 pg (26-34); Mean Corpuscular Volume 86.9 fl (80-100); Mean Platelet Volume 10.4 fl (7.4-10.4); Monocytes Absolute Auto 1.1 K/mm3 (0.1-0.6); Monocytes Percent Auto 8.2 % (2.6-8.5); Neutrophils Absolute Auto 11.5 K/mm3 (1.3-6.7); Platelet Count Result 222 k/mm3 (150-375); Red Blood Count 4.52 M/mm3 (4.2-5.4); White Blood Count 12.9 K/mm3 (4.5-10.0)
[2022-02-04 06:20] LABS: INR 1.2; Prothrombin Time 14.3 Seconds (11.1-14.7)
[2022-02-04 06:39] LABS: Iron 24 ug/dL (37-170)
[2022-02-04 06:42] LABS: Creatine Kinase 34 U/L (30-135)
[2022-02-04 06:49] LABS: Percent Iron Saturation 9 % (20-50)
[2022-02-04 06:55] LABS: Alanine Aminotransferase 426 U/L (6-35); Albumin Level 3.7 g/dL (3.5-5.1); Alkaline Phosphatase 201 U/L (38-126); Anion Gap 14 mmol/L (8-16); Aspartate Amino Transferase 312 U/L (14-36); Bilirubin,Total 6.5 mg/dL (0.2-1.3); Blood Urea Nitrogen 17 mg/dL (7-17); Calcium 8.4 mg/dL (8.4-10.2); Carbon Dioxide 25 mmol/L (22-30); Chloride 95 mmol/L (98-107); Estimated CRCL calculation 36 ml/min; Estimated Glomerular Filt Rate 43; Glucose 141 mg/dL (65-110); Phosphorus 2.8 mg/dL (2.5-4.5); Potassium 3.4 mmol/L (3.4-5.0); Sodium 134 mmol/L (137-145)
[2022-02-04 06:56] LABS: Free T4 Free Thyroxine 1.67 ng/mL (0.78-2.19)
[2022-02-04 07:14] LABS: Hepatitis C Virus Antibody Negative (Negative)
[2022-02-04 07:24] LABS: HAV RESULT Negative (Negative); Hepatitis B Core IgM Result Negative (Negative); Hepatitis B Surface Antigen Negative (Negative)
[2022-02-04 08:47] LABS: Glucose Point of Care 127 mg/dl (65-105)
[2022-02-04 10:48] LABS: Lipase 17397 U/L (23-300)
--- NOTE | 2022-02-04 11:30 | PM.CNGS ---
Assessment and Plan Assessment and plan (1) Cholecystitis with cholelithiasis: Code(s): K80.10 - Calculus of gallbladder with chronic cholecystitis without obstruction Status: Acute Assessment and Plan: CT with findings of cholelithiasis, cholecystitis, and biliary and pancreatic duct dilatation. She also has elevated LFTs with a total bilirubin of 6.6. LFTs still elevated today and her lipase is elevated at 17,000. Discussed with the patient that this is likely acute biliary pancreatitis and she could have a common duct stone. Agree with IV Zosyn for possible cholangitis. Unable to get an MRCP due to her ICD. Will await GI consultation. Continue treating her acute pancreatitis with medical management. She will likely eventually need a cholecystectomy. We would not plan on surgery until her lipase has come down and depending on GI's recommendations. I discussed with the patient that she is a higher risk surgical candidate given her multiple co-morbidities and we would like for her to be medically optimized prior to having surgery. Will continue to follow along and plan surgery accordingly depending on how she progresses. (2) Acute pancreatitis: Code(s): K85.90 - Acute pancreatitis without necrosis or infection, unspecified Status: Acute Assessment and Plan: CT evidence of dilated main pancreatic duct with elevated lipase of 17,000. Likely biliary related given the biliary ductal dilation with cholelithiasis, elevated LFTs, and CT findings. Triglycerides were normal in November. No heavy alcohol use. Continue IV fluids, analgesics as needed, and monitor labs. Await GI concultation. (3) Elevated LFTs: Code(s): R79.89 - Other specified abnormal findings of blood chemistry Status: Acute Assessment and Plan: LFTs elevated on admission with a total bilirubin of 6.6. This could be gallbladder/biliary related or multifactorial. To note, she has a history of CONTRERAS and is on a statin, and was recently started on Ozempic. In review of her records, she had normal LFTs in November. Unable to get an MRCP due to her ICD. Continue to monitor labs, await GI consultation for possible ERCP. (4) COVID-19: Code(s): U07.1 - COVID-19 Status: Acute Assessment and Plan: Currently asymptomatic. Tested positive initially about 1 month ago per the patient and was on paxlovid. Management per Hospitalist. (5) Acute UTI: Code(s): N39.0 - Urinary tract infection, site not specified Status: Acute Assessment and Plan: Continue IV antibiotics. Urine cx pending. (6) AMS (altered mental status): Code(s): R41.82 - Altered mental status, unspecified Status: Acute Assessment and Plan: Improving. Alert and oriented x 3 but poor historian. (7) IDDM (insulin dependent diabetes mellitus): Status: Acute (8) CHF (congestive heart failure): Code(s): I50.9 - Heart failure, unspecified Status: Acute Assessment and Plan: Most recent Echocardiogram was from November 2021 and showed EF at 45%. She follows with a [facility] in [place] per the patient. (9) CAD (coronary artery disease): Qualifiers: Coronary Disease-Associated Artery/Lesion type: [place] artery [place] vs. transplanted heart: [place] heart Associated angina: without angina Qualified Code(s): I25.10 - Atherosclerotic heart disease of [place] coronary artery without angina pectoris Code(s): I25.10 - Atherosclerotic heart disease of [place] coronary artery without angina pectoris Status: Acute Assessment and Plan: May need to consider Cardiology consultation for pre-operative risk assessment given her cardiac history if Hospitalist feels this is appropriate and necessary. 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
[2022-02-04 12:00] LABS: Glucose Point of Care 117 mg/dl (65-105)
--- NOTE | 2022-02-04 14:52 | PM.IMPN ---
Progress Note: A&P Assessment and Plan (1) Acute UTI: Code(s): N39.0 - Urinary tract infection, site not specified Status: Acute Assessment and Plan: Follow urine culture blood culture Continue Zosyn (2) AMS (altered mental status): Code(s): R41.82 - Altered mental status, unspecified Status: Acute Assessment and Plan: Multifactorial probably related to UTI and concern about ascending cholangitis and bile duct obstruction pending CT scan GI consult IV antibiotics (3) Abnormal transaminases: Code(s): R74.8 - Abnormal levels of other serum enzymes Status: Deleted Assessment and Plan: Concern for acute liver failure patient was recently started on ozempic for diabetes also patient has hyperlipidemia on statin patient also has history of CONTRERAS in the past and transaminitis I am concerned about ascending cholangitis biliary obstruction GI consulted Discussed with ER physician regarding CT scan final reading pending shows distended gallbladder with gallbladder stone and 8 mm dilatation of common bile duct GI aware plan for ultrasound of the abdomen may need MRCP and surgical evaluation Follow the result of ultrasound and GI recommendations Avoid hepatic toxic medications Continue Zosyn Check hepatitis panel Iron and ferritin level Check ammonia level and INR (4) COVID: Code(s): U07.1 - COVID-19 Status: Acute Assessment and Plan: Patient has recent COVID infection last November received paxlovid currently asymptomatic COVID-19 test positive Continue to monitor for now (5) CONTRERAS (nonalcoholic steatohepatitis): Code(s): K75.81 - Nonalcoholic steatohepatitis (CONTRERAS) Status: Acute Assessment and Plan: As above diet and exercise (6) Diabetes mellitus with neurological manifestation: Qualifiers: Diabetes mellitus type: type 2 Diabetes mellitus alf insulin use: with alf use Diabetes mellitus complication detail: with unspecified neuropathy Qualified Code(s): E11.40 - Type 2 diabetes mellitus with diabetic neuropathy, unspecified; 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 Code(s): E11.49 - Type 2 diabetes mellitus with other diabetic neurological complication Status: Chronic Assessment and Plan: Insulin sliding scale pending home medication [place] reconciliation (7) ICD (implantable cardioverter-defibrillator) in place: Code(s): Z95.810 - Presence of automatic (implantable) cardiac defibrillator Status: Acute Assessment and Plan: History of systolic heart failure Hold diuretic for now Gentle IV hydration (8) CHF (congestive heart failure): Code(s): I50.9 - Heart failure, unspecified Status: Acute Assessment and Plan: As above monitor (9) Organic sleep apnea: Code(s): G47.30 - Sleep apnea, unspecified Status: Acute Assessment and Plan: Resume home medication (10) CAD (coronary artery disease): Qualifiers: Coronary Disease-Associated Artery/Lesion type: [place] artery [place] vs. transplanted heart: [place] heart Associated angina: without angina Qualified Code(s): I25.10 - Atherosclerotic heart disease of [place] coronary artery without angina pectoris Code(s): I25.10 - Atherosclerotic heart disease of [place] coronary artery without angina pectoris Status: Acute Assessment and Plan: Hold aspirin for now pending GI evaluation (11) Poorly controlled diabetes mellitus: Code(s): E11.65 - Type 2 diabetes mellitus with hyperglycemia Status: Acute Assessment and Plan: As above (12) CKD (chronic kidney disease): Qualifiers: Chronic kidney disease stage: unspecified stage Qualified Code(s): N18.9 - Chronic kidney disease, unspecified Code(s): N18.9 - Chronic kidney disease, unspecified Status: Acute Assessment and Plan: Avoid hepatotoxic medication (13) Hyp
[2022-02-04] MEDS: PERFLUTREN LIPID MICROSPHERES 1.5 ML VIAL DILUTED TO 10 ML TOTAL VOLUME IV PUSH (16:00)
[2022-02-04 17:00] LABS: Glucose Point of Care 124 mg/dl (65-105)
[2022-02-04 23:07] LABS: Glucose Point of Care 191 mg/dl (65-105)
[2022-02-05] VITALS (9 sets, daily range): BP systolic 110–135; BP diastolic 44–59; PULSE 62–75; RESP 14–20; TEMP 35.9–36.6; O2SAT 91–98
[2022-02-05] MEDS: SODIUM CHLORIDE 0.9% IV 1,000 ML 60 ML IV CONT (05:13)
[2022-02-05 06:33] LABS: Basophils Percent Auto 0.5 % (0.2-1.2); Eosinophils Absolute Auto 0.1 K/mm3 (0-0.3); Eosinophils Percent Auto 1.7 % (0-4.4); Hematocrit 36.9 % (37.0-47.0); Hemoglobin 12.3 g/dL (12.0-15.0); Immature Granulocyte Absolute 0.05 K/mm3 (0.00-0.031); Immature Granulocyte Percent A 0.6 % (0-0.5); Lymphocytes Absolute Auto 0.39 K/mm3 (0.9-3.2); Lymphocytes Percent Auto 4.8 % (18.3-44.2); Mean Corpuscular HGB Conc 33.3 g/dl (32-36); Mean Corpuscular Hemoglobin 29.9 pg (26-34); Mean Corpuscular Volume 89.8 fl (80-100); Mean Platelet Volume 10.4 fl (7.4-10.4); Monocytes Absolute Auto 0.9 K/mm3 (0.1-0.6); Monocytes Percent Auto 11.1 % (2.6-8.5); Neutrophils Absolute Auto 6.7 K/mm3 (1.3-6.7); Neutrophils Percent Auto 81.3 % (45.5-73.1); Platelet Count Result 183 k/mm3 (150-375); Red Blood Count 4.11 M/mm3 (4.2-5.4); Red Cell Distribution Width 13.2 % (11.5-14.5); White Blood Count 8.2 K/mm3 (4.5-10.0)
[2022-02-05 07:00] LABS: Alanine Aminotransferase 296 U/L (6-35); Albumin Level 3.2 g/dL (3.5-5.1); Alkaline Phosphatase 195 U/L (38-126); Anion Gap 14 mmol/L (8-16); Aspartate Amino Transferase 186 U/L (14-36); Bilirubin,Total 6.8 mg/dL (0.2-1.3); Blood Urea Nitrogen 16 mg/dL (7-17); Carbon Dioxide 25 mmol/L (22-30); Chloride 97 mmol/L (98-107); Estimated CRCL calculation 31 ml/min; Estimated Glomerular Filt Rate 36; Glucose 131 mg/dL (65-110); Lipase 874 U/L (23-300); Magnesium 2.2 mg/dL (1.6-2.3); Potassium 2.8 mmol/L (3.4-5.0); Sodium 136 mmol/L (137-145)
[2022-02-05 08:21] LABS: Glucose Point of Care 125 mg/dl (65-105)
[2022-02-05] MEDS: POTASSIUM CHLORIDE INJ 40 MEQ in SODIUM CHLORIDE 0.9% IV 500 ML 130 MEQ IVPB (08:23)
[2022-02-05] MEDS: POTASSIUM CHLORIDE 20 MEQ TABLET 40 MEQ PO (08:23)
--- NOTE | 2022-02-05 11:09 | PM.PNGS ---
Progress Note: A&P Assessment and Plan (1) Cholecystitis with cholelithiasis: Code(s): K80.10 - Calculus of gallbladder with chronic cholecystitis without obstruction Status: Acute Assessment and Plan: exam slightly improved this morning, WBC normalized, cont abx, await ERCP for likely choledocholithiasis (2) Acute pancreatitis: Code(s): K85.90 - Acute pancreatitis without necrosis or infection, unspecified Status: Acute Assessment and Plan: likely biliary etiology, await ERCP today Subjective Subjective Date/Time Seen: 02/05/22 11:09 feels a little better, no acute issues Review of Systems Review of Systems: All systems reviewed & are unremarkable except as noted in HPI and below Exam Const: General: cooperative, no acute distress and obese Resp: Auscultation: diminished lung sounds Cardio: Rate: regular rate Rhythm: regular rhythm GI: Inspection: normal to inspection, distended and obesity GI Palp: Yes abdominal tenderness, Yes Soft to palpation, Yes Tenderness to palpation present (GI), No Guarding due to palpation present (GI) and No Rigid due to palpation Objective Data Vital Signs Vital Signs: Vital Signs - 24 hr 02/04/22 13:55 02/04/22 12:00 02/04/22 16:00 Temperature 36.2 C L Pulse Rate 75 75 67 Respiratory Rate 18 Blood Pressure 128/55 L Pulse Oximetry 95 Oxygen Delivery 02/04/22 21:07 02/04/22 19:50 02/05/22 00:00 Temperature 37.2 C Pulse Rate 70 76 63 Respiratory Rate 14 Blood Pressure 131/56 L Pulse Oximetry 95 Oxygen Delivery 02/05/22 04:00 02/05/22 05:32 02/05/22 09:50 Temperature 36.6 C Pulse Rate 67 71 Respiratory Rate 14 Blood Pressure 110/44 L Pulse Oximetry 95 Oxygen Delivery Room Air 02/05/22 10:09 02/05/22 08:25 Temperature Pulse Rate Respiratory Rate Blood Pressure Pulse Oximetry Oxygen Delivery Room Air Room Air Intake/Output Intake/Output: Intake & Output 02/02/22 02/03/22 02/04/22 02/05/22 23:59 23:59 23:59 23:59 Intake Total 1680 50 Balance 1680 50 Meds/Results Medications: Active Medications Generic Name Dose Route Start Last Admin Trade Name Freq PRN Reason Stop Dose Admin Bisacodyl 5 mg 02/04/22 03:45 Bisacodyl 5 Mg Tablet Ec PO DAILY PRN Constipation Dextrose 12.5 gm 02/04/22 04:19 Dextrose 50% 25 Gm/50 Ml Syringe IV PUSH PRN PRN Hypoglycemia Protocol Glucagon 1 mg 02/04/22 04:19 Glucagon For Inj 1 Mg Vial IM PRN PRN Hypoglycemia Protocol Glucose 15 gm 02/04/22 04:19 Glucose Oral Gel 15 Gm Of Glucse In 37.5 Gm Tube PO PRN PRN Hypoglycemia Protocol Sodium Chloride 1,000 mls @ 60 mls/hr 02/04/22 03:45 02/05/22 05:13 Normal Saline Iv IV CONT 60 mls/hr .[id number] TESFAYE Administration Piperacillin/Tazobactam/Dextrose 3.375 gm in 50 mls @ 100 mls/hr 02/04/22 13:00 02/05/22 07:00 Zosyn 3.375 Gm/D5w 50ml Pm IVPB Infused Q8HR TESFAYE Infusion Dextrose 1,000 mls @ 100 mls/hr 02/04/22 04:19 Dextrose 5% 1,000 Ml IVPB PRN PRN Hypoglycemia Protocol Potassium Chloride 40 meq/ 520 mls @ 130 mls/hr 02/05/22 07:29 02/05/22 10:49 Sodium Chloride IVPB 02/05/22 11:28 0 mls/hr ONCE ONE Infusion Insulin Aspart 3 - 6 units 02/04/22 08:00 02/05/22 08:13 Insulin Aspart (*Bkc) 100 Units/Ml SUB-Q Not Given [facility] Protocol Morphine Sulfate 2 mg 02/04/22 03:45 Morphine Sulfate (*Crx) 2 Mg/Ml Inj IV PUSH Q4H PRN Pain Rated 7-10 Naloxone HCl 0.1 mg 02/04/22 03:45 Naloxone Hcl 0.4 Mg/Ml Vial IV PUSH Q2M PRN Opiate Reversal Ondansetron HCl 4 mg 02/04/22 03:45 Ondansetron Inj 4 Mg/2 Ml Vial IV PUSH Q6H PRN Nausea And Vomiting Tolnaftate 1 applic 02/05/22 21:00 Tolnaftate 1% Powder 45 Gm Btl TOPICAL Q[facility] Radiology Results: ITS Impressions Head CT 11
[2022-02-05 11:56] LABS: Glucose Point of Care 117 mg/dl (65-105)
--- NOTE | 2022-02-05 12:09 | PM.IMPN ---
Progress Note: A&P Assessment and Plan (1) Acute UTI: Code(s): N39.0 - Urinary tract infection, site not specified Status: Acute Assessment and Plan: Follow urine culture blood culture Continue Zosyn (2) AMS (altered mental status): Code(s): R41.82 - Altered mental status, unspecified Status: Acute Assessment and Plan: Multifactorial probably related to UTI and concern about ascending cholangitis and bile duct obstruction pending CT scan GI consult IV antibiotics (3) Abnormal transaminases: Code(s): R74.8 - Abnormal levels of other serum enzymes Status: Deleted Assessment and Plan: Concern for acute liver failure patient was recently started on ozempic for diabetes also patient has hyperlipidemia on statin patient also has history of CONTRERAS in the past and transaminitis I am concerned about ascending cholangitis biliary obstruction GI consulted Discussed with ER physician regarding CT scan final reading pending shows distended gallbladder with gallbladder stone and 8 mm dilatation of common bile duct GI aware plan for ultrasound of the abdomen may need MRCP and surgical evaluation Follow the result of ultrasound and GI recommendations Avoid hepatic toxic medications Continue Zosyn Check hepatitis panel Iron and ferritin level Check ammonia level and INR (4) COVID: Code(s): U07.1 - COVID-19 Status: Acute Assessment and Plan: Patient has recent COVID infection last November received paxlovid currently asymptomatic COVID-19 test positive Continue to monitor for now (5) CONTRERAS (nonalcoholic steatohepatitis): Code(s): K75.81 - Nonalcoholic steatohepatitis (CONTRERAS) Status: Acute Assessment and Plan: As above diet and exercise (6) Diabetes mellitus with neurological manifestation: Qualifiers: Diabetes mellitus type: type 2 Diabetes mellitus group home insulin use: with group home use Diabetes mellitus complication detail: with unspecified neuropathy Qualified Code(s): E11.40 - Type 2 diabetes mellitus with diabetic neuropathy, unspecified; 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 Code(s): E11.49 - Type 2 diabetes mellitus with other diabetic neurological complication Status: Chronic Assessment and Plan: Insulin sliding scale pending home medication [place] reconciliation (7) ICD (implantable cardioverter-defibrillator) in place: Code(s): Z95.810 - Presence of automatic (implantable) cardiac defibrillator Status: Acute Assessment and Plan: History of systolic heart failure Hold diuretic for now Gentle IV hydration (8) CHF (congestive heart failure): Code(s): I50.9 - Heart failure, unspecified Status: Acute Assessment and Plan: As above monitor (9) Organic sleep apnea: Code(s): 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 transplanted heart: [place] heart Associated angina: without angina Qualified Code(s): I25.10 - Atherosclerotic heart disease of [place] coronary artery without angina pectoris Code(s): I25.10 - Atherosclerotic heart disease of [place] coronary artery without angina pectoris Status: Acute Assessment and Plan: Hold aspirin for now pending GI evaluation (11) Poorly controlled diabetes mellitus: Code(s): E11.65 - Type 2 diabetes mellitus with hyperglycemia Status: Acute Assessment and Plan: As above (12) CKD (chronic kidney disease): Qualifiers: Chronic kidney disease stage: unspecified stage Qualified Code(s): N18.9 - Chronic kidney disease, unspecified Code(s): N18.9 - Chronic kidney disease, unspecified Status: Acute Assessment and Plan: Avoid hepatotoxic medication (13) Hyp
[2022-02-05 13:31] LABS: Anion Gap 14 mmol/L (8-16); Blood Urea Nitrogen 17 mg/dL (7-17); Calcium 8.3 mg/dL (8.4-10.2); Carbon Dioxide 21 mmol/L (22-30); Chloride 100 mmol/L (98-107); Estimated CRCL calculation 31 ml/min; Estimated Glomerular Filt Rate 36; Glucose 114 mg/dL (65-110); Magnesium 2.2 mg/dL (1.6-2.3); Potassium 3.9 mmol/L (3.4-5.0); Sodium 135 mmol/L (137-145)
--- NOTE | 2022-02-05 13:50 | WPDGICN ---
Assessment and Plan Assessment and plan (1) Cholecystitis with cholelithiasis: Code(s): K80.10 - Calculus of gallbladder with chronic cholecystitis without obstruction Status: Acute Assessment and Plan: patient can not get MRCP but here with jaundice, ruq pain and confusion- probably cholangitis and can not rule out choledocholithiasis. I was planning to do ercp but then noted that she had gastric bypass- unfortunately we can not do ercp in our institution because altered anatomy, she will need transfer to tertiary hospital (already discussed with primary team) surgery also involved on antibiotics (2) Acute pancreatitis: Code(s): K85.90 - Acute pancreatitis without necrosis or infection, unspecified Status: Acute Assessment and Plan: GS pancreatitis monitor (3) Elevated LFTs: Code(s): R79.89 - Other specified abnormal findings of blood chemistry Status: Acute Assessment and Plan: from pancreatitis/cholecystitis (4) Acute hypokalemia: Code(s): E87.6 - Hypokalemia Status: Acute Assessment and Plan: treated (5) CAD (coronary artery disease): Qualifiers: Coronary Disease-Associated Artery/Lesion type: [place] artery [place] vs. transplanted heart: [place] heart Associated angina: without angina Qualified Code(s): I25.10 - Atherosclerotic heart disease of [place] coronary artery without angina pectoris Code(s): I25.10 - Atherosclerotic heart disease of [place] coronary artery without angina pectoris Status: Acute (6) (HFpEF) heart failure with preserved ejection fraction: Qualifiers: Heart failure chronicity: chronic Qualified Code(s): I50.32 - Chronic diastolic (congestive) heart failure Code(s): I50.30 - Unspecified diastolic (congestive) heart failure Status: Chronic (7) Diabetes mellitus with neurological manifestation: Qualifiers: Diabetes mellitus type: type 2 Diabetes mellitus fci insulin use: with fci use Diabetes mellitus complication detail: with unspecified neuropathy Qualified Code(s): E11.40 - Type 2 diabetes mellitus with diabetic neuropathy, unspecified; Z79.4 - [facility] (current) use of insulin Code(s): E11.49 - Type 2 diabetes mellitus with other diabetic neurological complication Status: Chronic (8) Gastric bypass status for obesity: Code(s): Z98.84 - Bariatric surgery status Status: Acute GI Consult Note Consult date/time: 02/05/22 13:50 Reason for consult: cholecystitis, elevated liver enzymes, ruq pain HPI: Lidia Ortega is a 81 year old female with history of?CHF, coronary artery disease, insulin-dependent diabetes mellitus on insulin, CAD s/p defibrillator, SARAH and gastric bypass years ago.? She came to the ED by EMS because altered mental status and also has been dealing with 2 weeks of right upper quadrant abdominal pain along with nausea and vomiting over the past 2 weeks, also noted dark urine. CT scan of the head was negative.? CT scan of the abdomen and pelvis showed cholelithiasis with dilated gallbladder, mild pericholecystic fluid and stranding along with mild intra and extrahepatic biliary ductal dilatation, dilatation of the main pancreatic duct, small sliding hiatal hernia with esophagitis, hepatic steatosis and evidence of gastric bypass.? [place] [address], total bilirubin 6.6, AST 367, ALT 498, alk-phos 234.?Lipase elevated at 17,397. Started on antibiotics and evaluated by surgery. Review of Systems Constitutional: Constitutional: Reports lethargy Eyes: Eyes: Denies blurry vision ENT: Reports Normal hearing present Cardiovascular: Cardiovascular: Denies chest pain Respiratory: Respiratory: Denies cough Gastrointestinal: Gastrointestinal: Reports abdominal pain, Reports nausea and Reports vomiting Genitourinary: Comments: dark urine Musculoskeletal: Musculoskeletal: Denies neck
[2022-02-05] MEDS: LACTATED RINGERS 1,000 ML 150 ML IV CONT (13:51)
--- NOTE | 2022-02-05 13:53 | WPDANESEPPF ---
Anes - Initial Pre Proc Eval Procedure: Operation Date: 02/05/22 15:45 Proposed Procedures p Endoscopic Retro Cholangiopancreatogram - Damon Paez MD Date/Time: 02/05/22 13:53 Surgeon: Santi Webber MD Pre Op Diagnosis: AMS, Elevated Transaminases,UTI,COVID Patient Data Age: 81 Gender: F Height: 1.6 m Weight: 87.2 kg Last Vital Signs Temp 36.2 C L 02/05/22 13:46 Pulse 72 02/05/22 13:46 Resp 20 02/05/22 13:46 BP 110/59 L 02/05/22 13:46 Pulse Ox 98 02/05/22 13:46 O2 Del Method Room Air 02/05/22 13:46 Allergies Allergy/AdvReac Type Severity Reaction Status Date / Time No Known Allergies Allergy Unknown Verified 02/05/22 13:45 Home Medications Medication Instructions Recorded Confirmed Type pen needle, diabetic 31 gauge x #30 ea 01/29/19 02/04/22 Rx 1/4 (1st Tier Unifine Pentips) losartan 50 mg tablet 50 mg PO DAILY #90 tabs 02/08/19 02/04/22 Rx calcium carbonate 500 mg-vitamin 1 tablet PO DAILY 04/03/19 02/04/22 History D3 10 mcg (400 unit) tablet (Calcium 500 + D) aspirin 81 mg tablet,delayed 81 mg PO DAILY 10/01/19 02/04/22 History release multivitamin 1 tablet PO DAILY 10/01/19 02/04/22 History isosorbide mononitrate 30 mg 30 mg PO DAILY #30 tabs 07/22/20 02/04/22 Rx tablet,extended release 24 hr carvedilol 12.5 mg tablet 12.5 mg PO BID 03/17/21 02/04/22 History rosuvastatin 20 mg tablet 20 mg PO DAILY 03/17/21 02/04/22 History paroxetine HCl 20 mg tablet See Rx Instructions .Route 05/01/21 02/04/22 Rx .COMPLEX #180 tabs nitrofurantoin macrocrystal 100 mg 100 mg PO DAILY #30 caps 07/06/21 02/04/22 Rx capsule insulin glargine 100 unit/mL See Rx Instructions subcut BID #30 07/20/21 02/04/22 Rx subcutaneous solution (Lantus mL U-100 Insulin) insulin syringe-needle U-100 1 mL #300 ea 07/22/21 02/04/22 Rx 30 gauge x 08/10 zolpidem 10 mg tablet 5 mg PO HS #15 tabs 11/23/21 02/04/22 Rx semaglutide 1 mg/dose (2 mg/1.5 1 mg (0.75 mL) subcut WEEKLY 90 12/31/21 02/04/22 Rx mL) subcutaneous pen injector days #9 mL furosemide 20 mg tablet (Lasix) 40 mg PO DAILY 02/04/22 02/04/22 History Laboratory Tests 02/04/22 02/04/22 02/05/22 16:55 20:41 05:44 WBC RBC Hgb Hct MCV MCH MCHC RDW Plt Count MPV Immature Gran % (Auto) Neut % (Auto) Lymph % (Auto) [place] % (Auto) Eos % (Auto) Baso % (Auto) Lymph # (Auto) [place] # (Auto) Eos # (Auto) Baso # (Auto) Abs Immat Gran (auto) Absolute Neuts (auto) Absolute Nucleated RBC Nucleated RBC % Sodium 136 mmol/L L mmol/L (137-145) Potassium 2.8 mmol/L L* mmol/L (3.4-5.0) Chloride 97 mmol/L L mmol/L (98-107) Carbon Dioxide 25 mmol/L mmol/L (22-30) Anion Gap 14 mmol/L mmol/L (8-16) BUN 16 mg/dL mg/dL (7-17) Creatinine 1.40 mg/dL H mg/dL (0.7-1.0) Estim Creat Clear Calc 31 ml/min ml/min Estimated GFR 36 L (59 - ) Glucose 131 mg/dL H mg/dL (65-110) POC Capillary Glucose 124 mg/dl H mg/dl 191 mg/dl H mg/dl (65-105) (65-105) Calcium 8.0 mg/dL L mg/dL (8.4-10.2) Magnesium 2.2 mg/dL mg/dL (1.6-2.3) Total Bilirubin 6.8 mg/dL H mg/dL (0.2-1.3) AST 186 U/L H U/L (14-36) ALT 296 U/L H U/L (6-35) Alkaline Phosphatase 195 U/L H U/L (38-126) Total Protein 7.0 g/dL g/dL (6.3-8.2) Albumin 3.2 g/dL L g/dL (3.5-5.1) Lipase 874 U/L H U/L (23-300) 02/05/22 02/05/22 02/05/22 05:44 07:33 11:53 WBC 8.2 K/mm3 K/mm3 (4.5-10.0) RBC 4.11 M/mm3 L M/mm3 (4.2-5.4)
--- NOTE | 2022-02-05 14:15 | SUR.OPER ---
ERCP NOT DONE DUE TO PATIENT HAVING A HISTORY OF GASTRIC BYPASS.
[2022-02-05 16:53] LABS: Glucose Point of Care 98 mg/dl (65-105)
[2022-02-05 20:04] LABS: Glucose Point of Care 138 mg/dl (65-105)
[2022-02-05] MEDS: ONDANSETRON INJ 4 MG/2 ML VIAL IV PUSH (20:54)
[2022-02-05] MEDS: ZOLPIDEM TARTRATE (*CRX) 5 MG TABLET PO (21:28)
[2022-02-05] MEDS: TOLNAFTATE 1% POWDER 45 GM BTL 1 APPLIC TOPICAL (21:29)
[2022-02-06] VITALS (7 sets, daily range): BP systolic 141–150; BP diastolic 55–60; PULSE 65–93; RESP 17–20; TEMP 36.2–36.3; O2SAT 93–96
[2022-02-06] MEDS: SODIUM CHLORIDE 0.9% IV 1,000 ML 60 ML IV CONT ×2 (04:28→22:25)
[2022-02-06 06:48] LABS: Hematocrit 35.4 % (37.0-47.0); Hemoglobin 11.4 g/dL (12.0-15.0); Mean Corpuscular Volume 90.8 fl (80-100); White Blood Count 10.1 K/mm3 (4.5-10.0)
[2022-02-06 06:49] LABS: Mean Corpuscular HGB Conc 32.2 g/dl (32-36); Mean Corpuscular Hemoglobin 29.2 pg (26-34); Mean Platelet Volume 10.2 fl (7.4-10.4); Platelet Count Result 178 k/mm3 (150-375); Red Cell Distribution Width 13.3 % (11.5-14.5)
[2022-02-06 06:58] LABS: Alanine Aminotransferase 202 U/L (6-35); Alkaline Phosphatase 200 U/L (38-126); Anion Gap 12 mmol/L (8-16); Aspartate Amino Transferase 88 U/L (14-36); Blood Urea Nitrogen 14 mg/dL (7-17); Carbon Dioxide 21 mmol/L (22-30); Chloride 101 mmol/L (98-107); Estimated CRCL calculation 36 ml/min; Estimated Glomerular Filt Rate 43; Glucose 98 mg/dL (65-110); Magnesium 2.2 mg/dL (1.6-2.3); Potassium 3.7 mmol/L (3.4-5.0); Sodium 134 mmol/L (137-145)
[2022-02-06 08:15] LABS: Glucose Point of Care 84 mg/dl (65-105)
[2022-02-06] MEDS: TOLNAFTATE 1% POWDER 45 GM BTL 1 APPLIC TOPICAL ×2 (09:00→22:25)
--- NOTE | 2022-02-06 09:08 | WPDANESPN ---
Anes - Prog Note Post-Op Date/Time: 02/06/22 09:08 Cardiovascular status: normal Respiratory status: normal Airway patency: baseline Mental status: baseline Post-Op hydration status: normal Vital Signs: Last Vital Signs Temp 36.2 C L 02/06/22 06:00 Pulse 93 02/06/22 06:00 Resp 18 02/06/22 06:00 BP 150/60 H 02/06/22 06:00 Pulse Ox 95 02/06/22 06:00 O2 Del Method Room Air 02/05/22 13:46 Pain Score (VAS): 0/10 I/O: Intake & Output 02/05/22 02/06/22 02/06/22 23:59 07:59 15:59 Intake Total 2266 Balance 2266 Laboratory Tests 02/06/22 06:07 02/06/22 06:07 02/05/22 02/05/22 02/05/22 11:53 13:12 16:35 WBC RBC Hgb Hct MCV MCH MCHC RDW Plt Count MPV Sodium 135 L Potassium 3.9 Chloride 100 Carbon Dioxide 21 L Anion Gap 14 BUN 17 Creatinine 1.40 H Estim Creat Clear Calc 31 Estimated GFR 36 L Glucose 114 H POC Capillary Glucose 117 H 98 Calcium 8.3 L Magnesium 2.2 Total Bilirubin AST ALT Alkaline Phosphatase Total Protein Albumin 02/05/22 02/06/22 02/06/22 19:35 06:07 06:07 WBC 10.1 H RBC 3.90 L Hgb 11.4 L Hct 35.4 L MCV 90.8 MCH 29.2 MCHC 32.2 RDW 13.3 Plt Count 178 MPV 10.2 Sodium 134 L Potassium 3.7 Chloride 101 Carbon Dioxide 21 L Anion Gap 12 BUN 14 Creatinine 1.20 H Estim Creat Clear Calc 36 Estimated GFR 43 L Glucose 98 POC Capillary Glucose 138 H Calcium 8.0 L Magnesium 2.2 Total Bilirubin 5.0 H AST 88 H ALT 202 H Alkaline Phosphatase 200 H Total Protein 6.0 L Albumin 3.0 L 02/06/22 08:08 WBC RBC Hgb Hct MCV MCH MCHC RDW Plt Count MPV Sodium Potassium Chloride Carbon Dioxide Anion Gap BUN Creatinine Estim Creat Clear Calc Estimated GFR Glucose POC Capillary Glucose 84 Calcium Magnesium Total Bilirubin AST ALT Alkaline Phosphatase Total Protein Albumin Microbiology 02/04/22 01:39 Unspecified Urine Culture - Preliminary Klebsiella pnemoniae Post-procedural complaints: none Patient Feedback: Patient satisfied with anesthetic care.
[2022-02-06 11:42] LABS: Glucose Point of Care 182 mg/dl (65-105)
--- NOTE | 2022-02-06 13:09 | PM.IMPN ---
Progress Note: A&P Assessment and Plan (1) Acute UTI: Code(s): N39.0 - Urinary tract infection, site not specified Status: Acute Assessment and Plan: UA is growing Klebsiella pneumonia will continue Zosyn and follow and sensitivity (2) AMS (altered mental status): Code(s): R41.82 - Altered mental status, unspecified Status: Acute Assessment and Plan: patient clinical symptoms are improving (3) Abnormal transaminases: Code(s): R74.8 - Abnormal levels of other serum enzymes Status: Deleted Assessment and Plan: most likely secondary choledocholithiasis, patient needs ERCP unable to perform here is [facility] patient needs to be transferred to tertiary care pending bed availability, (4) COVID: Code(s): U07.1 - COVID-19 Status: Acute Assessment and Plan: negative (5) CONTRERAS (nonalcoholic steatohepatitis): Code(s): K75.81 - Nonalcoholic steatohepatitis (CONTRERAS) Status: Acute Assessment and Plan: morbidly obese (6) Diabetes mellitus with neurological manifestation: Qualifiers: Diabetes mellitus type: type 2 Diabetes mellitus long distance operator insulin use: with prison use Diabetes mellitus complication detail: with unspecified neuropathy Qualified Code(s): E11.40 - Type 2 diabetes mellitus with diabetic neuropathy, unspecified; Z79.4 - 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 Code(s): E11.49 - Type 2 diabetes mellitus with other diabetic neurological complication Status: Chronic Assessment and Plan: will continue home regimen and monitor (7) ICD (implantable cardioverter-defibrillator) in place: Code(s): Z95.810 - Presence of automatic (implantable) cardiac defibrillator Status: Acute Assessment and Plan: remains clinically stable (8) CHF (congestive heart failure): Code(s): I50.9 - Heart failure, unspecified Status: Acute Assessment and Plan: does not appear volume overloaded (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 transplanted heart: [place] heart Associated angina: without angina Qualified Code(s): I25.10 - Atherosclerotic heart disease of [place] coronary artery without angina pectoris Code(s): I25.10 - Atherosclerotic heart disease of [place] coronary artery without angina pectoris Status: Acute (11) Poorly controlled diabetes mellitus: Code(s): E11.65 - Type 2 diabetes mellitus with hyperglycemia Status: Acute (12) CKD (chronic kidney disease): Qualifiers: Chronic kidney disease stage: unspecified stage Qualified Code(s): N18.9 - Chronic kidney disease, unspecified Code(s): N18.9 - Chronic kidney disease, unspecified Status: Acute (13) Hyperlipidemia: Qualifiers: Hyperlipidemia type: other hyperlipidemia Qualified Code(s): E78.49 - Other hyperlipidemia Code(s): E78.5 - Hyperlipidemia, unspecified Status: Chronic (14) Hypertension: Code(s): I10 - Essential (primary) hypertension Status: Acute Plan 02/06/2022 interval history;?patient is 81-year-old moderately obese female presented with complaint of abdominal pain nausea or vomiting is found to have elevated liver enzymes and CT scan of the abdomen concerning for cholecystitis and there is a gallstone and biliary duct, seen by? GI patient is scheduled to have ERCP for Possible?choledocholithiasis,?on 02/05 patient was taken to GI lab for EGD, however patient with history fo bariatric surgery unable to ERCP here and needs to transfer to Tertiary care, called [facility] both are completely full and do not expect any bed for 10 ten days, GI and surgery are aware, patient UA is suspicious for UTI and urine culture is growing Kleb
--- NOTE | 2022-02-06 14:04 | PCOTNOTE ---
Attempted to see patient, patient refused OT at this time. Patient reports willing to maybe bathe later, but preferred therapist try tomorrow to work with her. Patient educated over importance of participating in therapy to return home, patient reports Well I'll get my son and I'll walk out of here. Patient educated over current performance with OT/PT and current mobility requirements. Patient continued to refuse OT. Will try to see patient tomorrow in late AM as requested to continue OT plan of care.
--- NOTE | 2022-02-06 14:24 | WPDGIPROGNO ---
Progress Note: A&P Assessment and Plan (1) Cholecystitis with cholelithiasis: Code(s): K80.10 - Calculus of gallbladder with chronic cholecystitis without obstruction Status: Acute Assessment and Plan: high suspicious that she may have choledocholithiasis, possible cholangitis. She could not get MRCP because has pacemaker and then ERCP in our facility will be impossible because she is post gastric bypass. needs transfer to tertiary hospital surgery on the case on antibiotics, pending final report of blood culture trend lft lipase trending down and tolerating liquid diet (2) Elevated LFTs: Code(s): R79.89 - Other specified abnormal findings of blood chemistry Status: Acute Assessment and Plan: monitor GB/biliary related (3) Gallstone pancreatitis: Code(s): K85.10 - Biliary acute pancreatitis without necrosis or infection Status: Acute Assessment and Plan: monitor CL diet (4) Gastric bypass status for obesity: Code(s): Z98.84 - Bariatric surgery status Status: Acute Assessment and Plan: can not perform erpc here, pending bed transfer (5) Acute UTI: Code(s): N39.0 - Urinary tract infection, site not specified Status: Acute (6) ICD (implantable cardioverter-defibrillator) in place: Code(s): Z95.810 - Presence of automatic (implantable) cardiac defibrillator Status: Acute Subjective Date/time seen: 02/06/22 14:24 Interval history: still abdominal discomfort and nausea, tolerating liquid diet Review of Systems Review of Systems: All systems reviewed & are unremarkable except as noted in HPI and below Exam Const: General: comfortable, no acute distress and awake Orientation/consciousness: patient oriented x3 HENMT: Head: normocephalic and atraumatic Ears: hearing grossly normal bilaterally Eyes: General: appearance normal, both eyes and all related structures Sclera: scleral abnormality (scleral icterus) Pupils: Equal, round and reactive pupils present EOM: EOMs intact bilaterally Neck: Neck: normal visual inspection and full ROM Resp: Effort & Inspection: no respiratory distress Auscultation: clear to auscultation bilaterally Cardio: Rate: regular rate Rhythm: regular rhythm GI: Inspection: non-distended and scar (large midline scar, extensive scaring in RLQ) GI Palp: Yes Soft to palpation and Yes Tenderness to palpation present (GI) (RUQ, RLQ, LUQ) Auscultation: normal bowel sounds Back/Spine/Pelvis: Back: no CVA tenderness Skin: General skin exam: no rashes or lesions noted and jaundice (mild) Neuro: General: moves all extremities and no focal motor deficits Speech: normal speech Motor exam (neuro): 5/5 motor strength present throughout Extrem: General: normal to inspection and no edema Psych: Mental Status: mental status grossly normal Affect: normal affect Attitude: cooperative Objective Data Vital Signs Vital Signs: Vital Signs - 24 hr 02/05/22 16:00 02/05/22 22:00 02/05/22 20:20 Temperature 96.8 F L Pulse Rate 66 69 67 Respiratory Rate 17 Blood Pressure 135/50 L Pulse Oximetry 97 Oxygen Delivery 02/06/22 00:00 02/06/22 04:00 02/06/22 06:00 Temperature 97.2 F L Pulse Rate 69 68 93 Respiratory Rate 18 Blood Pressure 150/60 H Pulse Oximetry 95 Oxygen Delivery 02/06/22 10:33 02/06/22 08:00 02/06/22 08:00 Temperature Pulse Rate 70 93 Respiratory Rate 18 Blood Pressure Pulse Oximetry 93 93 Oxygen Delivery Room Air Room Air Intake/Output Intake/Output: Intake & Output 02/03/22 02/04/22 02/05/22 02/06/22 23:59 23:59 23:59 23:59 Intake Total 1680 2466 290 Balance 1680 2466 290 Meds/Results Medications: Active Medications Generic Name Dose Route Start Last Admin Trade Name Freq PRN Reason Stop Dose Admin Bisacodyl 5 mg 02/04/22 03:45 Bisacodyl 5 Mg Tablet Ec PO DAILY PRN Constipation Dextrose
[2022-02-06 16:39] LABS: Glucose Point of Care 173 mg/dl (65-105)
--- NOTE | 2022-02-06 20:22 | PM.PNGS ---
Progress Note: A&P Assessment and Plan (1) Gallstone pancreatitis: Code(s): K85.10 - Biliary acute pancreatitis without necrosis or infection Status: Acute Assessment and Plan: lipase gradually coming down. Bilirubin LFTs still somewhat elevated. Pain is less. Patient is staying hydrated with IV fluids. --- Recheck lipase in a.m.. Check pre-albumin for nutritional status. (2) Gastric bypass status for obesity: Code(s): Z98.84 - Bariatric surgery status Status: Acute Assessment and Plan: This makes it difficult for your CP. Along scope and ago she shown up a Abigail limb would be required. Spoke with Dr. Gaytan regarding status of transfer. Both [facility] and [facility] have a 10 day wait for beds. (3) IDDM (insulin dependent diabetes mellitus): Status: Acute Assessment and Plan: As per hospitalist. Subjective Subjective Date/Time Seen: 02/06/22 17:22 Patient reports: feels better, still having pain ( but in general less than before) and no bowel movement ( none since entering the hospital.) Interval history: Patient believes that her gastric bypass was done when she was in her early 60s. She states she the did lose about 100 lb after that. Review of Systems Review of Systems: All systems reviewed & are unremarkable except as noted in HPI and below Exam Const: General: cooperative, comfortable, alert and awake Orientation/consciousness: patient oriented x3 HENMT: Head: normal to inspection Mouth: Yes moist mucous membranes Eyes: Sclera: sclerae normal Pupils: Equal, round and reactive pupils present Neck: Neck: normal visual inspection Chest: Chest palpation & inspection: normal inspection of the chest Resp: Effort & Inspection: normal respiratory effort Auscultation: clear to auscultation bilaterally Cardio: Rate: regular rate GI: Inspection: distended, obesity and scar ( Multiple -- see below) GI Palp: Yes abdominal tenderness ( mid and right abdomen) and No Hernia present Auscultation: normal bowel sounds Rectal Exam: deferred Other: The patient has a vertical midline scar in the upper abdomen. She has a circular scar completely around her umbilicus that is probably at least 2 cm from the umbilicus circumferentially. She has a low transverse scar from her previous TAHBSO. She has scars along the lateral right Mid and upper abdomen from bowling when she was a child. Neuro: General: patient oriented x3 Cranial nerves: Yes Equal, round and reactive pupils present Objective Data Vital Signs Vital Signs: Vital Signs - 24 hr 02/05/22 22:00 02/06/22 00:00 02/06/22 04:00 Temperature 36.0 C L Pulse Rate 69 69 68 Respiratory Rate 17 Blood Pressure 135/50 L Pulse Oximetry 97 Oxygen Delivery 02/06/22 06:00 02/06/22 10:33 02/06/22 08:00 Temperature 36.2 C L Pulse Rate 93 70 Respiratory Rate 18 Blood Pressure 150/60 H Pulse Oximetry 95 93 Oxygen Delivery Room Air 02/06/22 08:00 02/06/22 14:00 Temperature 36.2 C L Pulse Rate 93 65 Respiratory Rate 18 20 Blood Pressure 146/56 H Pulse Oximetry 93 96 Oxygen Delivery Room Air Intake/Output Intake/Output: Intake & Output 02/03/22 02/04/22 02/05/22 02/06/22 23:59 23:59 23:59 23:59 Intake Total 1680 2466 1170 Balance 1680 2466 1170 Meds/Results Medications: Active Medications Generic Name Dose Route Start Last Admin Trade Name Freq PRN Reason Stop Dose Admin Bisacodyl 5 mg 02/04/22 03:45 Bisacodyl 5 Mg Tablet Ec PO DAILY PRN Constipation Dextrose 12.5 gm 02/04/22 04:19 Dextrose 50% 25 Gm/50 Ml Syringe IV PUSH PRN PRN Hypoglycemia Protocol Glucagon 1 mg 02/04/22 04:19 Glucagon For Inj 1 Mg Vial IM PRN PRN Hypoglycemia Protocol Glucose 15 gm 02/04/22 04:19 Glucose Oral Gel 15 Gm Of Glucse In 37.5 Gm Tube PO PRN PRN Hypoglycemia Protocol [place]
[2022-02-06] MEDS: ONDANSETRON INJ 4 MG/2 ML VIAL IV PUSH (21:41)
[2022-02-06] MEDS: ZOLPIDEM TARTRATE (*CRX) 5 MG TABLET PO (22:24)
[2022-02-07 00:10] LABS: Glucose Point of Care 217 mg/dl (65-105)
[2022-02-07 05:56] VITALS: BP 142/51; PULSE 64; RESP 18; TEMP 36.2; O2SAT 97
[2022-02-07 06:50] LABS: Hematocrit 32.9 % (37.0-47.0); Hemoglobin 10.7 g/dL (12.0-15.0); Mean Corpuscular HGB Conc 32.5 g/dl (32-36); Mean Corpuscular Hemoglobin 29.2 pg (26-34); Mean Corpuscular Volume 89.9 fl (80-100); Mean Platelet Volume 10.4 fl (7.4-10.4); Platelet Count Result 201 k/mm3 (150-375); Red Blood Count 3.66 M/mm3 (4.2-5.4); Red Cell Distribution Width 13.3 % (11.5-14.5); White Blood Count 8.3 K/mm3 (4.5-10.0)
[2022-02-07 07:00] LABS: Alanine Aminotransferase 137 U/L (6-35); Albumin Level 2.8 g/dL (3.5-5.1); Alkaline Phosphatase 214 U/L (38-126); Anion Gap 9 mmol/L (8-16); Aspartate Amino Transferase 48 U/L (14-36); Bilirubin,Total 2.8 mg/dL (0.2-1.3); Blood Urea Nitrogen 10 mg/dL (7-17); Calcium 7.8 mg/dL (8.4-10.2); Carbon Dioxide 22 mmol/L (22-30); Chloride 104 mmol/L (98-107); Estimated CRCL calculation 39 ml/min; Estimated Glomerular Filt Rate 48; Glucose 140 mg/dL (65-110); Potassium 3.7 mmol/L (3.4-5.0); Sodium 135 mmol/L (137-145)
[2022-02-07 07:32] LABS: Lipase 525 U/L (23-300)
[2022-02-07 07:39] LABS: Prealbumin 5.6 mg/dL (17.6-36.0)
[2022-02-07 08:00] VITALS: PULSE 69; RESP 18; O2SAT 98
[2022-02-07 08:19] LABS: Glucose Point of Care 155 mg/dl (65-105)
--- NOTE | 2022-02-07 08:41 | PCPTNOTE ---
Patient refused treatment this session due to I'm tired and want to sleep. Explained the importance of working with therapy to improve in strength and be able to go home. Pt continued to refuse therapy. Informed Pt I will have to put in that she is refusing therapy and she replied No! I just don't want to work this morning, I want to sleep. Informed Pt that means she is refusing therapy at this time. She stated Well then, yes I am refusing right now.
--- NOTE | 2022-02-07 08:53 | PCOTNOTE ---
Patient refused occupational therapy this AM stated No, I am just to tiered and want to sleep. Educated on the benifits of OT services. Patient continued to refuse.
[2022-02-07] MEDS: TOLNAFTATE 1% POWDER 45 GM BTL 1 APPLIC TOPICAL ×2 (09:20→20:46)
--- NOTE | 2022-02-07 09:54 | PM.IMPN ---
Progress Note: A&P Assessment and Plan (1) Acute UTI: Code(s): N39.0 - Urinary tract infection, site not specified Status: Acute Assessment and Plan: UA is growing Klebsiella pneumonia will continue Zosyn and follow and sensitivity (2) AMS (altered mental status): Code(s): R41.82 - Altered mental status, unspecified Status: Acute Assessment and Plan: patient clinical symptoms are improving (3) Abnormal transaminases: Code(s): R74.8 - Abnormal levels of other serum enzymes Status: Deleted Assessment and Plan: most likely secondary choledocholithiasis, patient needs ERCP unable to perform here is [facility] patient needs to be transferred to tertiary care pending bed availability, (4) COVID: Code(s): U07.1 - COVID-19 Status: Acute Assessment and Plan: negative (5) CONTRERAS (nonalcoholic steatohepatitis): Code(s): K75.81 - Nonalcoholic steatohepatitis (CONTRERAS) Status: Acute Assessment and Plan: morbidly obese (6) Diabetes mellitus with neurological manifestation: Qualifiers: Diabetes mellitus complication detail: with unspecified neuropathy Diabetes mellitus correction insulin use: with manager terminal use Diabetes mellitus type: type 2 Qualified Code(s): E11.40 - Type 2 diabetes mellitus with diabetic neuropathy, unspecified; Z79.4 - intermediate 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 of 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 Code(s): E11.49 - Type 2 diabetes mellitus with other diabetic neurological complication Status: Chronic Assessment and Plan: will continue home regimen and monitor (7) ICD (implantable cardioverter-defibrillator) in place: Code(s): Z95.810 - Presence of automatic (implantable) cardiac defibrillator Status: Acute Assessment and Plan: remains clinically stable (8) CHF (congestive heart failure): Code(s): I50.9 - Heart failure, unspecified Status: Acute Assessment and Plan: does not appear volume overloaded (9) Organic sleep apnea: Code(s): G47.30 - Sleep apnea, unspecified Status: Acute (10) CAD (coronary artery disease): Qualifiers: Associated angina: without angina Coronary Disease-Associated Artery/Lesion type: [place] artery [place] vs. transplanted heart: [place] heart Qualified Code(s): I25.10 - Atherosclerotic heart disease of [place] coronary artery without angina pectoris Code(s): I25.10 - Atherosclerotic heart disease of [place] coronary artery without angina pectoris Status: Acute (11) Poorly controlled diabetes mellitus: Code(s): E11.65 - Type 2 diabetes mellitus with hyperglycemia Status: Acute (12) CKD (chronic kidney disease): Qualifiers: Chronic kidney disease stage: unspecified stage Qualified Code(s): N18.9 - Chronic kidney disease, unspecified Code(s): N18.9 - Chronic kidney disease, unspecified Status: Acute (13) Hyperlipidemia: Qualifiers: Hyperlipidemia type: other hyperlipidemia Qualified Code(s): E78.49 - Other hyperlipidemia Code(s): E78.5 - Hyperlipidemia, unspecified Status: Chronic (14) Hypertension: Code(s): I10 - Essential (primary) hypertension Status: Acute Plan 02/07/2022 interval history;?patient is 81-year-old moderately obese female presented with complaint of abdominal pain nausea or vomiting is found to have elevated liver enzymes and CT scan of the abdomen concerning for cholecystitis and there is a gallstone and biliary duct, seen by? GI patient is scheduled to have ERCP for Possible?choledocholithiasis,?on 02/05 patient was taken to GI lab for EGD, however patient with history fo bariatric surgery unable to do ERCP here and needs to transfer to Tertiary care, on 02/05 [facility] both are completely full and do not expect any bed for 10 ten days, GI and surgery are aware, Overall patient's symptoms are improving and her liver
[2022-02-07] MEDS: ISOSORBIDE MONONITRATE 30 MG TAB.ER.24H PO (10:23)
[2022-02-07] MEDS: FUROSEMIDE 40 MG TABLET PO (10:23)
[2022-02-07] MEDS: MULTIVITAMINS THERAPEUTIC TAB (*BKC) 1 TABLET PO (10:23)
[2022-02-07] MEDS: ASPIRIN 81 MG ENTERIC TABLET PO (10:23)
[2022-02-07] MEDS: carvediloL 12.5 MG TABLET PO ×2 (10:23→17:47)
[2022-02-07 12:08] LABS: Glucose Point of Care 265 mg/dl (65-105)
--- NOTE | 2022-02-07 13:42 | WPDGIPROGNO ---
Progress Note: A&P Assessment and Plan (1) Bacteremia: Code(s): R78.81 - Bacteremia Status: Acute Assessment and Plan: E. faecalis + in blood probably cholangitis/cholecystitis on antibiotics (2) Cholecystitis with cholelithiasis: Code(s): K80.10 - Calculus of gallbladder with chronic cholecystitis without obstruction Status: Acute Assessment and Plan: high suspicious that she may have choledocholithiasis, possible cholangitis. Today noted that bili is coming down. She could not get MRCP because has pacemaker and then ERCP in our facility will be impossible because she is post gastric bypass. needs transfer to tertiary hospital surgery on the case on antibiotics, pending final report of blood culture lipase trending down and tolerating liquid diet, advance as tolerated (3) Elevated LFTs: Code(s): R79.89 - Other specified abnormal findings of blood chemistry Status: Acute Assessment and Plan: monitor GB/biliary related (4) Gallstone pancreatitis: Code(s): K85.10 - Biliary acute pancreatitis without necrosis or infection Status: Acute Assessment and Plan: monitor advance diet (5) Gastric bypass status for obesity: Code(s): Z98.84 - Bariatric surgery status Status: Acute Assessment and Plan: can not perform erpc here, pending bed transfer (6) Acute UTI: Code(s): N39.0 - Urinary tract infection, site not specified Status: Acute (7) ICD (implantable cardioverter-defibrillator) in place: Code(s): Z95.810 - Presence of automatic (implantable) cardiac defibrillator Status: Acute Subjective Date/time seen: 02/07/22 13:42 Interval history: she is comfortable, still with abdominal discomfort Review of Systems Review of Systems: All systems reviewed & are unremarkable except as noted in HPI and below Exam Const: General: comfortable, no acute distress and awake Orientation/consciousness: patient oriented x3 Other: obese HENMT: Head: normocephalic and atraumatic Ears: hearing grossly normal bilaterally Eyes: General: appearance normal, both eyes and all related structures Sclera: scleral abnormality (scleral icterus) Pupils: Equal, round and reactive pupils present EOM: EOMs intact bilaterally Neck: Neck: normal visual inspection and full ROM Resp: Effort & Inspection: no respiratory distress Auscultation: clear to auscultation bilaterally Cardio: Rate: regular rate Rhythm: regular rhythm GI: Inspection: non-distended and scar (large midline scar, extensive scaring in RLQ) GI Palp: Yes Soft to palpation and Yes Tenderness to palpation present (GI) (RUQ, RLQ, LUQ) Auscultation: normal bowel sounds Back/Spine/Pelvis: Back: no CVA tenderness Skin: General skin exam: no rashes or lesions noted and jaundice (mild) Neuro: General: moves all extremities and no focal motor deficits Speech: normal speech Motor exam (neuro): 5/5 motor strength present throughout Extrem: General: normal to inspection and no edema Psych: Mental Status: mental status grossly normal Affect: normal affect Attitude: cooperative Objective Data Vital Signs Vital Signs: Vital Signs - 24 hr 02/06/22 14:00 02/06/22 22:00 02/07/22 05:56 Temperature 97.1 F L 97.3 F L 97.2 F L Pulse Rate 65 69 64 Respiratory Rate 20 17 18 Blood Pressure 146/56 H 141/55 H 142/51 H Pulse Oximetry 96 96 97 Intake/Output Intake/Output: Intake & Output 02/04/22 02/05/22 02/06/22 02/07/22 23:59 23:59 23:59 23:59 Intake Total 1680 2466 2220 598 Balance 1680 2466 2220 598 Meds/Results Medications: Active Medications Generic Name Dose Route Start Last Admin Trade Name Freq PRN Reason Stop Dose Admin Aspirin 81 mg 02/07/22 09:00 02/07/22 10:23 Aspirin 81 Mg Enteric Tablet PO 81 mg DAILY TESFAYE Administration Bisacodyl 5 mg 02/04/22 03:45 Bisacodyl 5 Mg Tablet Ec PO DAILY PRN Constipa
[2022-02-07] MEDS: INSULIN ASPART (*BKC) 100 UNITS/ML SUB-Q ×2 (15:26→17:47)
[2022-02-07 15:36] VITALS: BP 130/60; PULSE 69; RESP 18; TEMP 36.6; O2SAT 98
--- NOTE | 2022-02-07 15:54 | PM.PNGS ---
Progress Note: A&P Assessment and Plan (1) Gallstone pancreatitis: Code(s): K85.10 - Biliary acute pancreatitis without necrosis or infection Status: Acute Assessment and Plan: lipase gradually coming down. Bilirubin LFTs still somewhat elevated but are also further down today. Pain is less. Patient is staying hydrated with po clears & IV fluids. --- Recheck lipase in a.m.. Check pre-albumin for nutritional status. agree with advancing diet to fulls and recheck lipase if stable could advance further tomorrow (2) Gastric bypass status for obesity: Code(s): Z98.84 - Bariatric surgery status Status: Acute Assessment and Plan: This makes it difficult for ERCP. A long scope is needed to go into the gastric pouch and then tthrough a Abigail limb would be required to get to the ampulla. Spoke with Dr. Gaytan regarding status of transfer. Both [facility] and [facility] have a 10 day wait for beds. (3) IDDM (insulin dependent diabetes mellitus): Status: Acute Assessment and Plan: As per hospitalist. Subjective Subjective Date/Time Seen: 02/07/22 14:54 Patient reports: still having pain ( Right upper quadrant and mid epigastric), pain is less ( compared to admission), flatus and no bowel movement Interval history: patient willing to try suppository. Review of Systems Review of Systems: All systems reviewed & are unremarkable except as noted in HPI and below Exam Const: General: cooperative, comfortable, alert and awake Orientation/consciousness: patient oriented x3 HENMT: Head: normal to inspection Mouth: Yes moist mucous membranes Eyes: Sclera: sclerae normal Pupils: Equal, round and reactive pupils present Neck: Neck: normal visual inspection Chest: Chest palpation & inspection: normal inspection of the chest Resp: Effort & Inspection: normal respiratory effort Auscultation: clear to auscultation bilaterally Cardio: Rate: regular rate GI: Inspection: distended, obesity and scar ( Multiple -- see below) GI Palp: Yes abdominal tenderness ( mid and right abdomen) and No Hernia present Auscultation: normal bowel sounds Rectal Exam: deferred Other: The patient has a vertical midline scar in the upper abdomen. She has a circular scar completely around her umbilicus that is probably at least 2 cm from the umbilicus circumferentially. She has a low transverse scar from her previous TAHBSO. She has scars along the lateral right Mid and upper abdomen from bowling when she was a child. Neuro: General: patient oriented x3 Cranial nerves: Yes Equal, round and reactive pupils present Objective Data Vital Signs Vital Signs: Vital Signs - 24 hr 02/06/22 22:00 02/07/22 05:56 02/07/22 15:36 Temperature 36.3 C L 36.2 C L 36.6 C Pulse Rate 69 64 69 Respiratory Rate 17 18 18 Blood Pressure 141/55 H 142/51 H 130/60 Pulse Oximetry 96 97 98 Intake/Output Intake/Output: Intake & Output 02/04/22 02/05/22 02/06/22 02/07/22 23:59 23:59 23:59 23:59 Intake Total 1680 2466 2220 648 Balance 1680 2466 2220 648 Meds/Results Medications: Active Medications Generic Name Dose Route Start Last Admin Trade Name Freq PRN Reason Stop Dose Admin Aspirin 81 mg 02/07/22 09:00 02/07/22 10:23 Aspirin 81 Mg Enteric Tablet PO 81 mg DAILY TESFAYE Administration Bisacodyl 5 mg 02/04/22 03:45 Bisacodyl 5 Mg Tablet Ec PO DAILY PRN Constipation Calcium Carbonate 500 mg 02/07/22 09:00 02/07/22 10:23 Calcium/Vitamin D 500 Mg Tablet PO 500 mg DAILY TESFAYE Administration Carvedilol 12.5 mg 02/07/22 09:00 02/07/22 10:23 Carvedilol 12.5 Mg Tablet PO 12.5 mg BID TESFAYE Administration Dextrose 12.5 gm 02/04/22 04:19 Dextrose 50% 25 Gm/50 Ml Syringe IV PUSH PRN PRN Hypoglycemia Protocol Furosemide 40 mg 02/07/22 09:00 02/07/22 10:23 Furosemide 40 Mg Tablet PO 40 mg DAILY TESFAYE Administration Gl
[2022-02-07 17:14] LABS: Glucose Point of Care 266 mg/dl (65-105)
[2022-02-07] MEDS: SODIUM CHLORIDE 0.9% IV 1,000 ML 60 ML IV CONT (17:46)
[2022-02-07] MEDS: PARoxetine 20 MG TABLET 40 MG BY MOUTH (17:48)
[2022-02-07 19:53] LABS: Glucose Point of Care 293 mg/dl (65-105)
[2022-02-07] MEDS: ZOLPIDEM TARTRATE (*CRX) 5 MG TABLET PO (20:48)
[2022-02-07 23:00] VITALS: BP 113/49; PULSE 68; RESP 18; TEMP 36.6; O2SAT 95
[2022-02-08] MEDS: ONDANSETRON INJ 4 MG/2 ML VIAL IV PUSH (00:25)
[2022-02-08 05:58] VITALS: BP 136/60; PULSE 93; RESP 19; TEMP 36.1; O2SAT 97
[2022-02-08 07:14] LABS: Hematocrit 30.7 % (37.0-47.0); Hemoglobin 10.2 g/dL (12.0-15.0); Mean Corpuscular HGB Conc 33.2 g/dl (32-36); Mean Corpuscular Hemoglobin 29.7 pg (26-34); Mean Corpuscular Volume 89.2 fl (80-100); Mean Platelet Volume 9.6 fl (7.4-10.4); Platelet Count Result 194 k/mm3 (150-375); Red Blood Count 3.44 M/mm3 (4.2-5.4); Red Cell Distribution Width 13.2 % (11.5-14.5); White Blood Count 7.8 K/mm3 (4.5-10.0)
[2022-02-08 07:34] LABS: Alanine Aminotransferase 99 U/L (6-35); Albumin Level 2.9 g/dL (3.5-5.1); Alkaline Phosphatase 198 U/L (38-126); Anion Gap 8 mmol/L (8-16); Aspartate Amino Transferase 34 U/L (14-36); Bilirubin,Total 2.6 mg/dL (0.2-1.3); Blood Urea Nitrogen 11 mg/dL (7-17); Calcium 7.8 mg/dL (8.4-10.2); Carbon Dioxide 25 mmol/L (22-30); Chloride 98 mmol/L (98-107); Estimated CRCL calculation 36 ml/min; Estimated Glomerular Filt Rate 43; Glucose 207 mg/dL (65-110); Lipase 513 U/L (23-300); Magnesium 1.8 mg/dL (1.6-2.3); Potassium 3.7 mmol/L (3.4-5.0); Sodium 131 mmol/L (137-145)
[2022-02-08 08:01] LABS: Glucose Point of Care 189 mg/dl (65-105)
[2022-02-08] MEDS: FUROSEMIDE 40 MG TABLET PO (08:15)
[2022-02-08 08:16] VITALS: PULSE 70
[2022-02-08] MEDS: ISOSORBIDE MONONITRATE 30 MG TAB.ER.24H PO (08:16)
[2022-02-08] MEDS: MULTIVITAMINS THERAPEUTIC TAB (*BKC) 1 TABLET PO (08:16)
[2022-02-08] MEDS: ASPIRIN 81 MG ENTERIC TABLET PO (08:16)
[2022-02-08] MEDS: carvediloL 12.5 MG TABLET PO ×2 (08:16→17:00)
[2022-02-08] MEDS: TOLNAFTATE 1% POWDER 45 GM BTL 1 APPLIC TOPICAL ×2 (08:17→21:40)
--- NOTE | 2022-02-08 11:06 | PCOTNOTE ---
Attempted to see patient this am, however patient refused stating, I want to nap. Encouraged patient to sit up in chair to complete ADLs and benefits of OT, however patient continued to refuse. Reminded patient of her goal to go home with son, and therapy will discharge patient from services due to repeated refusals to participate. Pt stated, I don't care. Pt confirmed she understood that refusals could potentially lead to denial of continued services. RN present at time.
--- NOTE | 2022-02-08 11:33 | PM.PNGS ---
Progress Note: A&P Assessment and Plan (1) Gallstone pancreatitis: Code(s): K85.10 - Biliary acute pancreatitis without necrosis or infection Status: Acute Assessment and Plan: improving, stone likely has passed given improved exam and labs, will try to advance to low fat diet, encourage OOB/IS Subjective Subjective Date/Time Seen: 02/08/22 11:33 resting comfortably, reports no acute issues, pain is present but less severe Review of Systems Review of Systems: All systems reviewed & are unremarkable except as noted in HPI and below Exam Const: General: cooperative, comfortable, no acute distress and obese Resp: Auscultation: clear to auscultation bilaterally Cardio: Rate: regular rate Rhythm: regular rhythm GI: Inspection: normal to inspection and distended GI Palp: Yes abdominal tenderness, Yes Soft to palpation, Yes Tenderness to palpation present (GI), No Guarding due to palpation present (GI) and No Rigid due to palpation Objective Data Vital Signs Vital Signs: Vital Signs - 24 hr 02/07/22 15:36 02/07/22 23:00 02/08/22 05:58 Temperature 36.6 C 36.6 C 36.1 C L Pulse Rate 69 68 93 Respiratory Rate 18 18 19 Blood Pressure 130/60 113/49 L 136/60 Pulse Oximetry 98 95 97 02/08/22 08:16 Temperature Pulse Rate 70 Respiratory Rate Blood Pressure Pulse Oximetry Intake/Output Intake/Output: Intake & Output 02/05/22 02/06/22 02/07/22 02/08/22 23:59 23:59 23:59 23:59 Intake Total 2466 2220 2228 480 Balance 2466 2220 2228 480 Meds/Results Medications: Active Medications Generic Name Dose Route Start Last Admin Trade Name Freq PRN Reason Stop Dose Admin Artificial Tears 1 drop 02/08/22 10:55 Artificial Tears Ophth Soln 15 Ml Bottle EACH EYE QID PRN Dry Eye(s) Aspirin 81 mg 02/07/22 09:00 02/08/22 08:16 Aspirin 81 Mg Enteric Tablet PO 81 mg DAILY TESFAYE Administration Bisacodyl 5 mg 02/04/22 03:45 Bisacodyl 5 Mg Tablet Ec PO DAILY PRN Constipation Calcium Carbonate 500 mg 02/07/22 09:00 02/08/22 08:16 Calcium/Vitamin D 500 Mg Tablet PO 500 mg DAILY TESFAYE Administration Carvedilol 12.5 mg 02/07/22 09:00 02/08/22 08:16 Carvedilol 12.5 Mg Tablet PO 12.5 mg BID TESFAYE Administration Dextrose 12.5 gm 02/04/22 04:19 Dextrose 50% 25 Gm/50 Ml Syringe IV PUSH PRN PRN Hypoglycemia Protocol Furosemide 40 mg 02/07/22 09:00 02/08/22 08:15 Furosemide 40 Mg Tablet PO 40 mg DAILY TESFAYE Administration Glucagon 1 mg 02/04/22 04:19 Glucagon For Inj 1 Mg Vial IM PRN PRN Hypoglycemia Protocol Glucose 15 gm 02/04/22 04:19 Glucose Oral Gel 15 Gm Of Glucse In 37.5 Gm Tube PO PRN PRN Hypoglycemia Protocol Sodium Chloride 1,000 mls @ 60 mls/hr 02/04/22 03:45 02/07/22 17:46 Normal Saline Iv IV CONT 60 mls/hr .[id number] TESFAYE Administration Piperacillin/Tazobactam/Dextrose 3.375 gm in 50 mls @ 100 mls/hr 02/04/22 13:00 02/08/22 06:45 Zosyn 3.375 Gm/D5w 50ml Pm IVPB 100 mls/hr Q8HR TESFAYE Administration Dextrose 1,000 mls @ 100 mls/hr 02/04/22 04:19 Dextrose 5% 1,000 Ml IVPB PRN PRN Hypoglycemia Protocol Vancomycin HCl 1,250 mg in 250 mls @ 200 mls/hr 02/07/22 09:00 02/07/22 10:20 Vancomycin 1,250 Mg/D5w 250 Ml IVPB 200 mls/hr Q36H TESFAYE Administration Insulin Aspart 3 - 6 units 02/04/22 08:00 02/08/22 07:47 Insulin Aspart (*Bkc) 100 Units/Ml SUB-Q Not Given TIDWM TESFAYE Protocol Isosorbide Mononitrate 30 mg 02/07/22 09:00 02/08/22 08:16 Isosorbide Mononitrate 30 Mg Tab.Er.24h PO 30 mg DAILY TESFAYE Administration Miscellaneous Information 0 each 02/07/22 00:01 02/07/22 17:54 Semaglutide Is Non Formulary. Hold While In Hospital? XX 03/09/22 00:00 Not Given CLARIFY TESFAYE Morphine Sulfate 2 mg 02/04/22 03:45 Morphine Sulfate (*Crx) 2 Mg/Ml Inj IV PUSH Q4H PRN Pain Rat
[2022-02-08 11:39] LABS: Glucose Point of Care 332 mg/dl (65-105)
[2022-02-08] MEDS: INSULIN ASPART (*BKC) 100 UNITS/ML SUB-Q ×2 (11:42→17:02)
--- NOTE | 2022-02-08 11:56 | PCPTNOTE ---
Patient refused treatment this session due to wanting to lay down and take a nap. The patient was educated on the importance of doing therapy to go home. Pt stated, I don't want to get up to the chair, I just want to lay down and eat. Will continue per PT plan of care.
[2022-02-08] MEDS: ARTIFICIAL TEARS OPHTH SOLN 15 ML BOTTLE 1 DROP EACH EYE (12:38)
[2022-02-08 14:00] VITALS: BP 118/47; PULSE 65; RESP 22; TEMP 36.4; O2SAT 95
--- NOTE | 2022-02-08 14:27 | PCPTNOTE ---
Patient refused treatment this afternoon due to just wanting to sleep. Will continue per PT plan of care.
[2022-02-08 16:44] LABS: Glucose Point of Care 286 mg/dl (65-105)
--- NOTE | 2022-02-08 16:55 | WPDGIPROGNO ---
Progress Note: A&P Assessment and Plan (1) Bacteremia: Code(s): R78.81 - Bacteremia Status: Acute Assessment and Plan: E. faecalis + in blood probably cholangitis/cholecystitis on antibiotics (2) Cholecystitis with cholelithiasis: Code(s): K80.10 - Calculus of gallbladder with chronic cholecystitis without obstruction Status: Acute Assessment and Plan: high suspicious that she may have choledocholithiasis, possible cholangitis but bili trending down- hopefully stone passed She could not get MRCP because has pacemaker and then ERCP in our facility will be impossible because she is post gastric bypass. needs transfer to tertiary hospital- awaiting bed surgery on the case advance as tolerated (3) Elevated LFTs: Code(s): R79.89 - Other specified abnormal findings of blood chemistry Status: Acute Assessment and Plan: monitor GB/biliary related bili slowly trending down (4) Gallstone pancreatitis: Code(s): K85.10 - Biliary acute pancreatitis without necrosis or infection Status: Acute Assessment and Plan: monitor advance diet (5) Gastric bypass status for obesity: Code(s): Z98.84 - Bariatric surgery status Status: Acute Assessment and Plan: can not perform erpc here, pending hospital transfer (6) Acute UTI: Code(s): N39.0 - Urinary tract infection, site not specified Status: Acute (7) ICD (implantable cardioverter-defibrillator) in place: Code(s): Z95.810 - Presence of automatic (implantable) cardiac defibrillator Status: Acute Subjective Date/time seen: 02/08/22 16:55 Interval history: no major changes, less abdominal distension Review of Systems Review of Systems: All systems reviewed & are unremarkable except as noted in HPI and below Exam Const: General: cooperative, comfortable, no acute distress and obese HENMT: Face/Nose/Sinus: Normal nares present Eyes: General: appearance normal, both eyes and all related structures Neck: Neck: supple Resp: Auscultation: clear to auscultation bilaterally Cardio: Rate: regular rate Rhythm: regular rhythm GI: Inspection: normal to inspection and distended GI Palp: Yes abdominal tenderness, Yes Soft to palpation, Yes Tenderness to palpation present (GI), No Guarding due to palpation present (GI) and No Rigid due to palpation Skin: General skin exam: normal color Neuro: Speech: normal speech Extrem: General: normal to inspection Psych: Affect: normal affect Objective Data Vital Signs Vital Signs: Vital Signs - 24 hr 02/07/22 23:00 02/08/22 05:58 02/08/22 08:16 Temperature 97.8 F 96.9 F L Pulse Rate 68 93 70 Respiratory Rate 18 19 Blood Pressure 113/49 L 136/60 Pulse Oximetry 95 97 Intake/Output Intake/Output: Intake & Output 02/05/22 02/06/22 02/07/22 02/08/22 23:59 23:59 23:59 23:59 Intake Total 2466 2220 2228 530 Balance 2466 2220 2228 530 Meds/Results Medications: Active Medications Generic Name Dose Route Start Last Admin Trade Name Freq PRN Reason Stop Dose Admin Artificial Tears 1 drop 02/08/22 10:55 02/08/22 12:38 Artificial Tears Ophth Soln 15 Ml Bottle EACH EYE 1 drop QID PRN Administration Dry Eye(s) Aspirin 81 mg 02/07/22 09:00 02/08/22 08:16 Aspirin 81 Mg Enteric Tablet PO 81 mg DAILY TESFAYE Administration Bisacodyl 5 mg 02/04/22 03:45 Bisacodyl 5 Mg Tablet Ec PO DAILY PRN Constipation Calcium Carbonate 500 mg 02/07/22 09:00 02/08/22 08:16 Calcium/Vitamin D 500 Mg Tablet PO 500 mg DAILY TESFAYE Administration Carvedilol 12.5 mg 02/07/22 09:00 02/08/22 08:16 Carvedilol 12.5 Mg Tablet PO 12.5 mg BID TESFAYE Administration Dextrose 12.5 gm 02/04/22 04:19 Dextrose 50% 25 Gm/50 Ml Syringe IV PUSH PRN PRN Hypoglycemia Protocol Furosemide 40 mg 02/07/22 09:00 02/08/22 08:15 Furosemide 40 Mg Tablet PO 40
[2022-02-08 17:00] VITALS: PULSE 65
[2022-02-08] MEDS: PARoxetine 20 MG TABLET 40 MG BY MOUTH (17:00)
[2022-02-08] MEDS: AMPICILLIN SULB 3 GM/NS 100 ML 3 GM/100 ML VIAL IVPB ×2 (17:00→21:33)
--- NOTE | 2022-02-08 18:24 | PM.IMPN ---
Progress Note: A&P Assessment and Plan (1) Acute UTI: Code(s): N39.0 - Urinary tract infection, site not specified Status: Acute Assessment and Plan: UA is growing Klebsiella pneumonia will continue Zosyn and follow and sensitivity (2) AMS (altered mental status): Code(s): R41.82 - Altered mental status, unspecified Status: Acute Assessment and Plan: patient clinical symptoms are improving (3) Abnormal transaminases: Code(s): R74.8 - Abnormal levels of other serum enzymes Status: Deleted Assessment and Plan: most likely secondary choledocholithiasis, patient needs ERCP unable to perform here is [facility] patient needs to be transferred to tertiary care pending bed availability, (4) COVID: Code(s): U07.1 - COVID-19 Status: Acute Assessment and Plan: negative (5) CONTRERAS (nonalcoholic steatohepatitis): Code(s): K75.81 - Nonalcoholic steatohepatitis (CONTRERAS) Status: Acute Assessment and Plan: morbidly obese (6) Diabetes mellitus with neurological manifestation: Qualifiers: Diabetes mellitus type: type 2 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 Diabetes mellitus complication detail: with unspecified neuropathy Qualified Code(s): E11.40 - Type 2 diabetes mellitus with diabetic neuropathy, unspecified; Z79.4 - buttermaker 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 churn (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) use of insulin Code(s): E11.49 - Type 2 diabetes mellitus with other diabetic neurological complication Status: Chronic Assessment and Plan: will continue home regimen and monitor (7) ICD (implantable cardioverter-defibrillator) in place: Code(s): Z95.810 - Presence of automatic (implantable) cardiac defibrillator Status: Acute Assessment and Plan: remains clinically stable (8) CHF (congestive heart failure): Code(s): I50.9 - Heart failure, unspecified Status: Acute Assessment and Plan: does not appear volume overloaded (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 transplanted heart: [place] heart Associated angina: without angina Qualified Code(s): I25.10 - Atherosclerotic heart disease of [place] coronary artery without angina pectoris Code(s): I25.10 - Atherosclerotic heart disease of [place] coronary artery without angina pectoris Status: Acute (11) Poorly controlled diabetes mellitus: Code(s): E11.65 - Type 2 diabetes mellitus with hyperglycemia Status: Acute (12) CKD (chronic kidney disease): Qualifiers: Chronic kidney disease stage: unspecified stage Qualified Code(s): N18.9 - Chronic kidney disease, unspecified Code(s): N18.9 - Chronic kidney disease, unspecified Status: Acute (13) Hyperlipidemia: Qualifiers: Hyperlipidemia type: other hyperlipidemia Qualified Code(s): E78.49 - Other hyperlipidemia Code(s): E78.5 - Hyperlipidemia, unspecified Status: Chronic (14) Hypertension: Code(s): I10 - Essential (primary) hypertension Status: Acute Plan 02/08/2022 interval history;?patient is 81-year-old moderately obese female presented with complaint of abdominal pain nausea or vomiting is found to have elevated liver enzymes and CT scan of the abdomen concerning for cholecystitis and there is a gallstone and biliary duct, seen by? GI patient is scheduled to have ERCP for Possible?choledocholithiasis,?on 02/05 patient was taken to GI lab for EGD, however patient with history fo bariatric surgery unable to do ERCP here and needs to transfer to Tertiary care, on 02/05 called [facility] and [facility] both are completely full and do not expect any bed for 10 ten days, GI and surgery are aware, Overall patient's symptoms are improving and her liver
[2022-02-08 20:11] LABS: Glucose Point of Care 306 mg/dl (65-105)
[2022-02-08] MEDS: SODIUM CHLORIDE 0.9% IV 1,000 ML 60 ML IV CONT (21:31)
[2022-02-08] MEDS: ZOLPIDEM TARTRATE (*CRX) 5 MG TABLET PO ×2 (21:32→21:33)
[2022-02-08 22:00] VITALS: BP 139/39; PULSE 64; RESP 18; TEMP 36.1; O2SAT 96
[2022-02-09] MEDS: AMPICILLIN SULB 3 GM/NS 100 ML 3 GM/100 ML VIAL IVPB ×6 (02:52→21:07)
[2022-02-09 06:00] VITALS: BP 137/53; PULSE 65; RESP 14; TEMP 36.2; O2SAT 94
[2022-02-09 06:37] LABS: Hematocrit 32.5 % (37.0-47.0); Hemoglobin 10.6 g/dL (12.0-15.0); Mean Corpuscular HGB Conc 32.6 g/dl (32-36); Mean Corpuscular Hemoglobin 30.3 pg (26-34); Mean Corpuscular Volume 92.9 fl (80-100); Mean Platelet Volume 10.2 fl (7.4-10.4); Platelet Count Result 243 k/mm3 (150-375); Red Cell Distribution Width 13.2 % (11.5-14.5); White Blood Count 8.4 K/mm3 (4.5-10.0)
[2022-02-09 06:44] LABS: Alanine Aminotransferase 77 U/L (6-35); Albumin Level 3.1 g/dL (3.5-5.1); Alkaline Phosphatase 184 U/L (38-126); Anion Gap 11 mmol/L (8-16); Aspartate Amino Transferase 31 U/L (14-36); Bilirubin,Total 2.1 mg/dL (0.2-1.3); Blood Urea Nitrogen 10 mg/dL (7-17); Calcium 7.8 mg/dL (8.4-10.2); Carbon Dioxide 29 mmol/L (22-30); Chloride 93 mmol/L (98-107); Estimated CRCL calculation 36 ml/min; Estimated Glomerular Filt Rate 43; Glucose 210 mg/dL (65-110); Magnesium 1.7 mg/dL (1.6-2.3); Potassium 3.6 mmol/L (3.4-5.0); Sodium 133 mmol/L (137-145)
[2022-02-09 07:33] LABS: Glucose Point of Care 220 mg/dl (65-105)
[2022-02-09] MEDS: INSULIN ASPART (*BKC) 100 UNITS/ML SUB-Q ×3 (08:19→17:25)
[2022-02-09 08:24] VITALS: PULSE 69
[2022-02-09] MEDS: MULTIVITAMINS THERAPEUTIC TAB (*BKC) 1 TABLET PO (08:24)
[2022-02-09] MEDS: carvediloL 12.5 MG TABLET PO ×2 (08:24→17:25)
[2022-02-09] MEDS: ISOSORBIDE MONONITRATE 30 MG TAB.ER.24H PO (08:24)
[2022-02-09] MEDS: ASPIRIN 81 MG ENTERIC TABLET PO (08:24)
[2022-02-09] MEDS: FUROSEMIDE 40 MG TABLET PO (08:24)
[2022-02-09] MEDS: TOLNAFTATE 1% POWDER 45 GM BTL 1 APPLIC TOPICAL ×2 (08:26→21:06)
[2022-02-09 12:05] LABS: Glucose Point of Care 319 mg/dl (65-105)
[2022-02-09 14:00] VITALS: BP 106/52; PULSE 65; RESP 16; TEMP 36.1; O2SAT 98
--- NOTE | 2022-02-09 14:49 | PM.PNGS ---
Progress Note: A&P Assessment and Plan (1) Gallstone pancreatitis: Code(s): K85.10 - Biliary acute pancreatitis without necrosis or infection Status: Acute Assessment and Plan: much improved, exam benign, labs improved, [place] low fat diet, stone has likely passed, cont conservative mgmt c IV abx, ok to dc to ECF from surgical standpoint c f/u and repeat labs in 1-2 wks Subjective Subjective Date/Time Seen: 02/09/22 14:49 feels much better today, [place] low fat diet Review of Systems Review of Systems: All systems reviewed & are unremarkable except as noted in HPI and below Exam Const: General: cooperative, comfortable and no acute distress Orientation/consciousness: oriented to person, oriented to place and oriented to time Resp: Effort & Inspection: normal respiratory effort Auscultation: diminished lung sounds Cardio: Rate: regular rate Rhythm: regular rhythm GI: Inspection: normal to inspection and distended GI Palp: No abdominal tenderness, Yes Soft to palpation, No Tenderness to palpation present (GI), No Guarding due to palpation present (GI) and No Rigid due to palpation Objective Data Vital Signs Vital Signs: Vital Signs - 24 hr 02/08/22 17:00 02/08/22 22:00 02/09/22 06:00 Temperature 36.1 C L 36.2 C L Pulse Rate 65 64 65 Respiratory Rate 18 14 Blood Pressure 139/39 L 137/53 L Pulse Oximetry 96 94 02/09/22 08:24 Temperature Pulse Rate 69 Respiratory Rate Blood Pressure Pulse Oximetry Intake/Output Intake/Output: Intake & Output 02/06/22 02/07/22 02/08/22 02/09/22 23:59 23:59 23:59 23:59 Intake Total 2220 2228 2801 780 Output Total 250 Balance 2220 2228 2801 530 Meds/Results Medications: Active Medications Generic Name Dose Route Start Last Admin Trade Name Freq PRN Reason Stop Dose Admin Artificial Tears 1 drop 02/08/22 10:55 02/08/22 12:38 Artificial Tears Ophth Soln 15 Ml Bottle EACH EYE 1 drop QID PRN Administration Dry Eye(s) Aspirin 81 mg 02/07/22 09:00 02/09/22 08:24 Aspirin 81 Mg Enteric Tablet PO 81 mg DAILY TESFAYE Administration Bisacodyl 5 mg 02/04/22 03:45 Bisacodyl 5 Mg Tablet Ec PO DAILY PRN Constipation Calcium Carbonate 500 mg 02/07/22 09:00 02/09/22 08:25 Calcium/Vitamin D 500 Mg Tablet PO 500 mg DAILY TESFAYE Administration Carvedilol 12.5 mg 02/07/22 09:00 02/09/22 08:24 Carvedilol 12.5 Mg Tablet PO 12.5 mg BID TESFAYE Administration Dextrose 12.5 gm 02/04/22 04:19 Dextrose 50% 25 Gm/50 Ml Syringe IV PUSH PRN PRN Hypoglycemia Protocol Furosemide 40 mg 02/07/22 09:00 02/09/22 08:24 Furosemide 40 Mg Tablet PO 40 mg DAILY TESFAYE Administration Glucagon 1 mg 02/04/22 04:19 Glucagon For Inj 1 Mg Vial IM PRN PRN Hypoglycemia Protocol Glucose 15 gm 02/04/22 04:19 Glucose Oral Gel 15 Gm Of Glucse In 37.5 Gm Tube PO PRN PRN Hypoglycemia Protocol Sodium Chloride 1,000 mls @ 60 mls/hr 02/04/22 03:45 02/08/22 21:31 Normal Saline Iv IV CONT 60 mls/hr .[id number] TESFAYE Administration Dextrose 1,000 mls @ 100 mls/hr 02/04/22 04:19 Dextrose 5% 1,000 Ml IVPB PRN PRN Hypoglycemia Protocol Ampicillin Sodium/Sulbactam Sodium 3 gm in 100 mls @ 200 mls/hr 02/08/22 18:00 02/09/22 14:21 Unasyn 3 Gm/Ns 100 Ml IVPB 200 mls/hr Q4H TESFAYE Administration Insulin Aspart 3 - 6 units 02/04/22 08:00 02/09/22 11:58 Insulin Aspart (*Bkc) 100 Units/Ml SUB-Q 5 units TIDWM TESFAYE Administration Protocol Isosorbide Mononitrate 30 mg 02/07/22 09:00 02/09/22 08:24 Isosorbide Mononitrate 30 Mg Tab.Er.24h PO 30 mg DAILY TESFAYE Administration Miscellaneous Information 0 each 02/07/22 00:01 02/07/22 17:54 Semaglutide Is Non Formulary. Hold While In Hospital? XX 03/09/22 00:00 Not Given CLARIFY [facility] Morphine Sulfate 2 mg 02/04/22 03:45 Morphine Sulfate (*Crx) 2 Mg/Ml
--- NOTE | 2022-02-09 14:54 | WPDGIPROGNO ---
Progress Note: A&P Assessment and Plan (1) Bacteremia: Code(s): R78.81 - Bacteremia Status: Acute Assessment and Plan: E. faecalis + in blood probably cholangitis/cholecystitis on antibiotics but clinically better and bili is trending down ? passed stone (2) Cholecystitis with cholelithiasis: Code(s): K80.10 - Calculus of gallbladder with chronic cholecystitis without obstruction Status: Acute Assessment and Plan: ? choledocholithiasis, possible cholangitis but bili trending down- hopefully stone passed She could not get MRCP because has pacemaker and then ERCP in our facility will be impossible because she is post gastric bypass. surgery on the case tolerating diet (3) Elevated LFTs: Code(s): R79.89 - Other specified abnormal findings of blood chemistry Status: Acute Assessment and Plan: monitor GB/biliary related bili slowly trending down (4) Gallstone pancreatitis: Code(s): K85.10 - Biliary acute pancreatitis without necrosis or infection Status: Acute Assessment and Plan: monitor advance diet (5) Gastric bypass status for obesity: Code(s): Z98.84 - Bariatric surgery status Status: Acute Assessment and Plan: can not perform erpc here, pending hospital transfer (6) Acute UTI: Code(s): N39.0 - Urinary tract infection, site not specified Status: Acute (7) ICD (implantable cardioverter-defibrillator) in place: Code(s): Z95.810 - Presence of automatic (implantable) cardiac defibrillator Status: Acute Subjective Date/time seen: 02/09/22 14:54 Interval history: better with less pain, doing more physical therapy Review of Systems Review of Systems: All systems reviewed & are unremarkable except as noted in HPI and below Exam Const: General: cooperative, comfortable, no acute distress and obese HENMT: Face/Nose/Sinus: Normal nares present Eyes: General: appearance normal, both eyes and all related structures Neck: Neck: supple Resp: Auscultation: clear to auscultation bilaterally Cardio: Rate: regular rate Rhythm: regular rhythm GI: Inspection: normal to inspection and distended GI Palp: Yes Soft to palpation, Yes Tenderness to palpation present (GI) (less- better), No Guarding due to palpation present (GI) and No Rigid due to palpation Skin: General skin exam: normal color Neuro: Speech: normal speech Extrem: General: normal to inspection Psych: Affect: normal affect Objective Data Vital Signs Vital Signs: Vital Signs - 24 hr 02/08/22 17:00 02/08/22 22:00 02/09/22 06:00 Temperature 97.0 F L 97.1 F L Pulse Rate 65 64 65 Respiratory Rate 18 14 Blood Pressure 139/39 L 137/53 L Pulse Oximetry 96 94 02/09/22 08:24 Temperature Pulse Rate 69 Respiratory Rate Blood Pressure Pulse Oximetry Intake/Output Intake/Output: Intake & Output 02/06/22 02/07/22 02/08/22 02/09/22 23:59 23:59 23:59 23:59 Intake Total 2220 2228 2801 780 Output Total 250 Balance 2220 2228 2801 530 Meds/Results Medications: Active Medications Generic Name Dose Route Start Last Admin Trade Name Freq PRN Reason Stop Dose Admin Artificial Tears 1 drop 02/08/22 10:55 02/08/22 12:38 Artificial Tears Ophth Soln 15 Ml Bottle EACH EYE 1 drop QID PRN Administration Dry Eye(s) Aspirin 81 mg 02/07/22 09:00 02/09/22 08:24 Aspirin 81 Mg Enteric Tablet PO 81 mg DAILY TESFAYE Administration Bisacodyl 5 mg 02/04/22 03:45 Bisacodyl 5 Mg Tablet Ec PO DAILY PRN Constipation Calcium Carbonate 500 mg 02/07/22 09:00 02/09/22 08:25 Calcium/Vitamin D 500 Mg Tablet PO 500 mg DAILY TESFAYE Administration Carvedilol 12.5 mg 02/07/22 09:00 02/09/22 08:24 Carvedilol 12.5 Mg Tablet PO 12.5 mg BID TESFAYE Administration Dextrose 12.5 gm 02/04/22 04:19 Dextrose 50% 25 Gm/50 Ml Syringe IV PUSH PRN PRN Hypoglycemia
--- NOTE | 2022-02-09 16:52 | PM.IMPN ---
Progress Note: A&P Assessment and Plan (1) Acute UTI: Code(s): N39.0 - Urinary tract infection, site not specified Status: Acute Assessment and Plan: UA is growing Klebsiella pneumonia will continue Zosyn and follow and sensitivity (2) AMS (altered mental status): Code(s): R41.82 - Altered mental status, unspecified Status: Acute Assessment and Plan: patient clinical symptoms are improving (3) Abnormal transaminases: Code(s): R74.8 - Abnormal levels of other serum enzymes Status: Deleted Assessment and Plan: most likely secondary choledocholithiasis, patient needs ERCP unable to perform here is [facility] patient needs to be transferred to tertiary care pending bed availability, (4) COVID: Code(s): U07.1 - COVID-19 Status: Acute Assessment and Plan: negative (5) CONTRERAS (nonalcoholic steatohepatitis): Code(s): K75.81 - Nonalcoholic steatohepatitis (CONTRERAS) Status: Acute Assessment and Plan: morbidly obese (6) Diabetes mellitus with neurological manifestation: Qualifiers: Diabetes mellitus type: type 2 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 Diabetes mellitus complication detail: with unspecified neuropathy Qualified Code(s): E11.40 - Type 2 diabetes mellitus with diabetic neuropathy, unspecified; Z79.4 - terminal computer operator (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) use of insulin Code(s): E11.49 - Type 2 diabetes mellitus with other diabetic neurological complication Status: Chronic Assessment and Plan: will continue home regimen and monitor (7) ICD (implantable cardioverter-defibrillator) in place: Code(s): Z95.810 - Presence of automatic (implantable) cardiac defibrillator Status: Acute Assessment and Plan: remains clinically stable (8) CHF (congestive heart failure): Code(s): I50.9 - Heart failure, unspecified Status: Acute Assessment and Plan: does not appear volume overloaded (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 transplanted heart: [place] heart Associated angina: without angina Qualified Code(s): I25.10 - Atherosclerotic heart disease of [place] coronary artery without angina pectoris Code(s): I25.10 - Atherosclerotic heart disease of [place] coronary artery without angina pectoris Status: Acute (11) Poorly controlled diabetes mellitus: Code(s): E11.65 - Type 2 diabetes mellitus with hyperglycemia Status: Acute (12) CKD (chronic kidney disease): Qualifiers: Chronic kidney disease stage: unspecified stage Qualified Code(s): N18.9 - Chronic kidney disease, unspecified Code(s): N18.9 - Chronic kidney disease, unspecified Status: Acute (13) Hyperlipidemia: Qualifiers: Hyperlipidemia type: other hyperlipidemia Qualified Code(s): E78.49 - Other hyperlipidemia Code(s): E78.5 - Hyperlipidemia, unspecified Status: Chronic (14) Hypertension: Code(s): I10 - Essential (primary) hypertension Status: Acute Plan 02/09/2022 interval history;?patient is 81-year-old moderately obese female presented with complaint of abdominal pain nausea or vomiting is found to have elevated liver enzymes and CT scan of the abdomen concerning for cholecystitis and there is a gallstone and biliary duct, seen by? GI patient is scheduled to have ERCP for Possible?choledocholithiasis,?on 02/05 patient was taken to GI lab for EGD, however patient with history fo bariatric surgery unable to do ERCP here and needs to transfer to Tertiary care, on 02/05 called [facility] and [facility] both are completely full and do not expect any bed for 10 ten days, GI and surgery are aware, Overall patient's symptoms are improving and her liver
[2022-02-09 17:18] LABS: Glucose Point of Care 254 mg/dl (65-105)
[2022-02-09 17:25] VITALS: PULSE 62
[2022-02-09] MEDS: PARoxetine 20 MG TABLET 40 MG BY MOUTH (17:25)
[2022-02-09 19:56] LABS: Glucose Point of Care 360 mg/dl (65-105)
[2022-02-09] MEDS: ZOLPIDEM TARTRATE (*CRX) 5 MG TABLET PO (21:05)
[2022-02-09] MEDS: SODIUM CHLORIDE 0.9% IV 1,000 ML 60 ML IV CONT (21:06)
[2022-02-09 22:00] VITALS: BP 124/62; PULSE 64; RESP 14; TEMP 36.4; O2SAT 94
[2022-02-10] MEDS: AMPICILLIN SULB 3 GM/NS 100 ML 3 GM/100 ML VIAL IVPB ×3 (03:10→09:10)
[2022-02-10 06:00] VITALS: BP 141/49; PULSE 65; RESP 20; TEMP 35.9; O2SAT 94
[2022-02-10 06:34] LABS: Hemoglobin 10.2 g/dL (12.0-15.0); Mean Corpuscular HGB Conc 32.9 g/dl (32-36); Mean Corpuscular Hemoglobin 29.2 pg (26-34); Mean Corpuscular Volume 88.8 fl (80-100); Mean Platelet Volume 9.8 fl (7.4-10.4); Platelet Count Result 271 k/mm3 (150-375); Red Blood Count 3.49 M/mm3 (4.2-5.4); Red Cell Distribution Width 12.9 % (11.5-14.5); White Blood Count 8.3 K/mm3 (4.5-10.0)
[2022-02-10 06:51] LABS: Alanine Aminotransferase 62 U/L (6-35); Albumin Level 3.1 g/dL (3.5-5.1); Alkaline Phosphatase 179 U/L (38-126); Anion Gap 7 mmol/L (8-16); Aspartate Amino Transferase 27 U/L (14-36); Bilirubin,Total 1.8 mg/dL (0.2-1.3); Blood Urea Nitrogen 10 mg/dL (7-17); Calcium 8.1 mg/dL (8.4-10.2); Carbon Dioxide 29 mmol/L (22-30); Chloride 95 mmol/L (98-107); Estimated CRCL calculation 36 ml/min; Estimated Glomerular Filt Rate 43; Glucose 254 mg/dL (65-110); Magnesium 1.8 mg/dL (1.6-2.3); Potassium 3.5 mmol/L (3.4-5.0); Sodium 131 mmol/L (137-145)
--- NOTE | 2022-02-10 09:02 | PM.PNGS ---
Progress Note: A&P Assessment and Plan (1) Gallstone pancreatitis: Code(s): K85.10 - Biliary acute pancreatitis without necrosis or infection Status: Acute Assessment and Plan: largely resolved, labs near normal at this point, exam benign, cont low fat diet, ok to transfer to [facility] from surgical standpoint, can f/u as outpt to discuss interval cholecystectomy Subjective Subjective Date/Time Seen: 02/10/22 09:02 feels better, cont to [place] low fat diet s issue Review of Systems Review of Systems: All systems reviewed & are unremarkable except as noted in HPI and below Exam Const: General: cooperative, comfortable and no acute distress Resp: Auscultation: clear to auscultation bilaterally Cardio: Rate: regular rate Rhythm: regular rhythm GI: Inspection: normal to inspection and non-distended GI Palp: No abdominal tenderness, Yes Soft to palpation, No Tenderness to palpation present (GI), No Guarding due to palpation present (GI) and No Rigid due to palpation Objective Data Vital Signs Vital Signs: Vital Signs - 24 hr 02/09/22 14:00 02/09/22 17:25 02/09/22 20:00 Temperature 36.1 C L Pulse Rate 65 62 Respiratory Rate 16 Blood Pressure 106/52 L Pulse Oximetry 98 Oxygen Delivery Room Air 02/09/22 22:00 02/10/22 06:00 Temperature 36.4 C L 35.9 C L Pulse Rate 64 65 Respiratory Rate 14 20 Blood Pressure 124/62 141/49 H Pulse Oximetry 94 94 Oxygen Delivery Intake/Output Intake/Output: Intake & Output 02/07/22 02/08/22 02/09/22 02/10/22 23:59 23:59 23:59 23:59 Intake Total 2228 2801 3180 100 Output Total 250 Balance 2228 2801 2930 100 Meds/Results Medications: Active Medications Generic Name Dose Route Start Last Admin Trade Name Freq PRN Reason Stop Dose Admin Artificial Tears 1 drop 02/08/22 10:55 02/08/22 12:38 Artificial Tears Ophth Soln 15 Ml Bottle EACH EYE 1 drop QID PRN Administration Dry Eye(s) Aspirin 81 mg 02/07/22 09:00 02/09/22 08:24 Aspirin 81 Mg Enteric Tablet PO 81 mg DAILY TESFAYE Administration Bisacodyl 5 mg 02/04/22 03:45 Bisacodyl 5 Mg Tablet Ec PO DAILY PRN Constipation Calcium Carbonate 500 mg 02/07/22 09:00 02/09/22 08:25 Calcium/Vitamin D 500 Mg Tablet PO 500 mg DAILY TESFAYE Administration Carvedilol 12.5 mg 02/07/22 09:00 02/09/22 17:25 Carvedilol 12.5 Mg Tablet PO 12.5 mg BID TESFAYE Administration Dextrose 12.5 gm 02/04/22 04:19 Dextrose 50% 25 Gm/50 Ml Syringe IV PUSH PRN PRN Hypoglycemia Protocol Furosemide 40 mg 02/07/22 09:00 02/09/22 08:24 Furosemide 40 Mg Tablet PO 40 mg DAILY TESFAYE Administration Glucagon 1 mg 02/04/22 04:19 Glucagon For Inj 1 Mg Vial IM PRN PRN Hypoglycemia Protocol Glucose 15 gm 02/04/22 04:19 Glucose Oral Gel 15 Gm Of Glucse In 37.5 Gm Tube PO PRN PRN Hypoglycemia Protocol Sodium Chloride 1,000 mls @ 60 mls/hr 02/04/22 03:45 02/09/22 21:06 Normal Saline Iv IV CONT 60 mls/hr .[id number] TESFAYE Administration Dextrose 1,000 mls @ 100 mls/hr 02/04/22 04:19 Dextrose 5% 1,000 Ml IVPB PRN PRN Hypoglycemia Protocol Ampicillin Sodium/Sulbactam Sodium 3 gm in 100 mls @ 200 mls/hr 02/08/22 18:00 02/10/22 06:24 Unasyn 3 Gm/Ns 100 Ml IVPB 200 mls/hr Q4H TESFAYE Administration Insulin Aspart 3 - 6 units 02/04/22 08:00 02/09/22 17:25 Insulin Aspart (*Bkc) 100 Units/Ml SUB-Q 4 units TIDWM TESFAYE Administration Protocol Isosorbide Mononitrate 30 mg 02/07/22 09:00 02/09/22 08:24 Isosorbide Mononitrate 30 Mg Tab.Er.24h PO 30 mg DAILY TESFAYE Administration Miscellaneous Information 0 each 02/07/22 00:01 02/07/22 17:54 Semaglutide Is Non Formulary. Hold While In Hospital? XX 03/09/22 00:00 Not Given [facility] Morphine Sulfate 2 mg 02/04/22 03:45 Morphine Sulfate (*Crx) 2 Mg/Ml Inj IV PUSH Q4H PRN Pain Ra
[2022-02-10 09:06] LABS: Glucose Point of Care 262 mg/dl (65-105)
[2022-02-10 09:11] VITALS: PULSE 68
[2022-02-10] MEDS: FUROSEMIDE 40 MG TABLET PO (09:11)
[2022-02-10] MEDS: ARTIFICIAL TEARS OPHTH SOLN 15 ML BOTTLE 1 DROP EACH EYE (09:11)
[2022-02-10] MEDS: ASPIRIN 81 MG ENTERIC TABLET PO (09:11)
[2022-02-10] MEDS: MULTIVITAMINS THERAPEUTIC TAB (*BKC) 1 TABLET PO (09:11)
[2022-02-10] MEDS: ISOSORBIDE MONONITRATE 30 MG TAB.ER.24H PO (09:11)
[2022-02-10] MEDS: carvediloL 12.5 MG TABLET PO (09:11)
[2022-02-10] MEDS: TOLNAFTATE 1% POWDER 45 GM BTL 1 APPLIC TOPICAL (09:12)
[2022-02-10] MEDS: INSULIN ASPART (*BKC) 100 UNITS/ML SUB-Q ×2 (09:14→11:56)
[2022-02-10 09:21] LABS: Glucose Point of Care 262 mg/dl (65-105)
--- NOTE | 2022-02-10 11:08 | PM.DS ---
DS: Admitting Diagnosis Discharge Date February 10, 2022 Admitting Diagnosis altered mental status elevated liver enzymes and choledocholithiasis DS: Discharge Diagnosis Discharge Diagnosis (1) Acute UTI: Code(s): N39.0 - Urinary tract infection, site not specified Status: Acute Assessment and Plan: UA is growing Klebsiella pneumonia will continue Zosyn and follow and sensitivity (2) AMS (altered mental status): Code(s): R41.82 - Altered mental status, unspecified Status: Acute Assessment and Plan: patient clinical symptoms are improving (3) Abnormal transaminases: Code(s): R74.8 - Abnormal levels of other serum enzymes Status: Deleted Assessment and Plan: most likely secondary choledocholithiasis, patient needs ERCP unable to perform here [facility] patient needs to be transferred to tertiary care pending bed availability, (4) COVID: Code(s): U07.1 - COVID-19 Status: Acute Assessment and Plan: negative (5) CONTRERAS (nonalcoholic steatohepatitis): Code(s): K75.81 - Nonalcoholic steatohepatitis (CONTRERAS) Status: Acute Assessment and Plan: morbidly obese (6) Diabetes mellitus with neurological manifestation: Qualifiers: Diabetes mellitus type: type 2 Diabetes mellitus jail insulin use: with jail use Diabetes mellitus complication detail: with unspecified neuropathy Qualified Code(s): E11.40 - Type 2 diabetes mellitus with diabetic neuropathy, unspecified; Z79.4 - retirement (current) use of insulin Code(s): E11.49 - Type 2 diabetes mellitus with other diabetic neurological complication Status: Chronic Assessment and Plan: will continue home regimen and monitor (7) ICD (implantable cardioverter-defibrillator) in place: Code(s): Z95.810 - Presence of automatic (implantable) cardiac defibrillator Status: Acute Assessment and Plan: remains clinically stable (8) CHF (congestive heart failure): Code(s): I50.9 - Heart failure, unspecified Status: Acute Assessment and Plan: does not appear volume overloaded (9) Organic sleep apnea: Code(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 transplanted heart: [place] heart Associated angina: without angina Qualified Code(s): I25.10 - Atherosclerotic heart disease of [place] coronary artery without angina pectoris Code(s): I25.10 - Atherosclerotic heart disease of [place] coronary artery without angina pectoris Status: Acute (11) Poorly controlled diabetes mellitus: Code(s): E11.65 - Type 2 diabetes mellitus with hyperglycemia Status: Acute (12) CKD (chronic kidney disease): Qualifiers: Chronic kidney disease stage: unspecified stage Qualified Code(s): N18.9 - Chronic kidney disease, unspecified Code(s): N18.9 - Chronic kidney disease, unspecified Status: Acute (13) Hyperlipidemia: Qualifiers: Hyperlipidemia type: other hyperlipidemia Qualified Code(s): E78.49 - Other hyperlipidemia Code(s): E78.5 - Hyperlipidemia, unspecified Status: Chronic (14) Hypertension: Code(s): I10 - Essential (primary) hypertension Status: Acute Plan 02/09/2022 interval history;?patient is 81-year-old moderately obese female presented with complaint of abdominal pain nausea or vomiting is found to have elevated liver enzymes and CT scan of the abdomen concerning for cholecystitis and there is a gallstone and biliary duct, seen by? GI patient is scheduled to have ERCP for Possible?choledocholithiasis,?on 02/05 patient was taken to GI lab for EGD, however patient with history fo bariatric surgery unable to do ERCP here and needs to transfer to Tertiary care, on 02/05 called [facility]
--- NOTE | 2022-02-10 11:27 | PCPTNOTE ---
Attempted to see patient for PT, however patient declined due to anticipated discharge.
[2022-02-10 12:40] LABS: EDCOVIDSCREEN Negative (Negative)
[2022-02-10 14:00] VITALS: BP 117/50; PULSE 71; RESP 22; TEMP 36.2; O2SAT 96
--- NOTE | 2022-02-10 14:33 | WPDGIPROGNO ---
Progress Note: A&P Assessment and Plan (1) Bacteremia: Code(s): R78.81 - Bacteremia Status: Acute Assessment and Plan: E. faecalis + in blood probably cholangitis/cholecystitis but doing great, bili down to 1.8 and no more pain, tolerating diet can complete abx in rehab, she will follow-up with surgery (2) Cholecystitis with cholelithiasis: Code(s): K80.10 - Calculus of gallbladder with chronic cholecystitis without obstruction Status: Acute Assessment and Plan: ? choledocholithiasis but bili trending down- most likely stone passed (She could not get MRCP because has pacemaker and then ERCP in our facility will be impossible because she is post gastric bypass) surgery as outpatient (3) Elevated LFTs: Code(s): R79.89 - Other specified abnormal findings of blood chemistry Status: Acute Assessment and Plan: monitor GB/biliary related bili significantly improved and she is asymptomatic now (4) Gallstone pancreatitis: Code(s): K85.10 - Biliary acute pancreatitis without necrosis or infection Status: Acute Assessment and Plan: monitor advance diet (5) Gastric bypass status for obesity: Code(s): Z98.84 - Bariatric surgery status Status: Acute Assessment and Plan: can not perform erpc here (6) Acute UTI: Code(s): N39.0 - Urinary tract infection, site not specified Status: Acute (7) ICD (implantable cardioverter-defibrillator) in place: Code(s): Z95.810 - Presence of automatic (implantable) cardiac defibrillator Status: Acute Subjective Date/time seen: 02/10/22 14:33 Interval history: tolerating diet, no more pain and she is leaving today to rehab Review of Systems Review of Systems: All systems reviewed & are unremarkable except as noted in HPI and below Exam Const: General: comfortable and no acute distress HENMT: Face/Nose/Sinus: Normal nares present Eyes: General: appearance normal, both eyes and all related structures Neck: Neck: no JVD Resp: Auscultation: clear to auscultation bilaterally Cardio: Rate: regular rate Rhythm: regular rhythm GI: Inspection: non-distended GI Palp: Yes Soft to palpation, No Tenderness to palpation present (GI) and No Guarding due to palpation present (GI) Auscultation: normal bowel sounds Skin: General skin exam: normal color Neuro: Speech: normal speech Motor exam (neuro): 5/5 motor strength present throughout Extrem: General: normal to inspection Psych: Mental Status: mental status grossly normal Objective Data Vital Signs Vital Signs: Vital Signs - 24 hr 02/09/22 17:25 02/09/22 20:00 02/09/22 22:00 Temperature 97.5 F L Pulse Rate 62 64 Respiratory Rate 14 Blood Pressure 124/62 Pulse Oximetry 94 Oxygen Delivery Room Air 02/10/22 06:00 02/10/22 09:11 Temperature 96.7 F L Pulse Rate 65 68 Respiratory Rate 20 Blood Pressure 141/49 H Pulse Oximetry 94 Oxygen Delivery Intake/Output Intake/Output: Intake & Output 02/07/22 02/08/22 02/09/22 02/10/22 23:59 23:59 23:59 23:59 Intake Total 2228 2801 3180 440 Output Total 250 Balance 2228 2801 2930 440 Meds/Results Medications: Active Medications Generic Name Dose Route Start Last Admin Trade Name Freq PRN Reason Stop Dose Admin Artificial Tears 1 drop 02/08/22 10:55 02/10/22 09:11 Artificial Tears Ophth Soln 15 Ml Bottle EACH EYE 1 drop QID PRN Administration Dry Eye(s) Aspirin 81 mg 02/07/22 09:00 02/10/22 09:11 Aspirin 81 Mg Enteric Tablet PO 81 mg DAILY TESFAYE Administration Bisacodyl 5 mg 02/04/22 03:45 Bisacodyl 5 Mg Tablet Ec PO DAILY PRN Constipation Calcium Carbonate 500 mg 02/07/22 09:00 02/10/22 09:11 Calcium/Vitamin D 500 Mg Tablet PO 500 mg DAILY TESFAYE Administration Carvedilol 12.5 mg 02/07/22 09:00 02/10/22 09:11 Carvedilol 12.5 Mg Tablet PO 12.5 mg BID TESFAYE Adm
[2022-02-10 16:51] LABS: Glucose Point of Care 295 mg/dl (65-105)
== END 2022-02-10 14:30 | DRG 444 ==
LOC: ANHED 03:46 → ANH3MEDSUR 04:04
PROVIDERS: Family Medicine; Internal Medicine Gastroenterology; Surgery; Admitting Provider Internal Medicine; Emergency Provider Emergency Medicine; PCP Internal Medicine; Visit Provider Chiropractor
PROC: (CPT 43260; principal; 2022-02-05 15:45)
DX: K80.64 Calculus of gallbladder and bile duct with chronic cholecystitis without obstruction (principal); K85.10 Biliary acute pancreatitis without necrosis or infection; U07.1 COVID-19; N39.0 Urinary tract infection, site not specified; B96.1 Klebsiella pneumoniae [K. pneumoniae] as the cause of diseases classified elsewhere; I13.0 Hypertensive heart and chronic kidney disease with heart failure and stage 1 through stage 4 chronic kidney disease, or unspecified chronic kidney disease; I50.32 Chronic diastolic (congestive) heart failure; I42.9 Cardiomyopathy, unspecified; R78.81 Bacteremia; B95.2 Enterococcus as the cause of diseases classified elsewhere; E11.22 Type 2 diabetes mellitus with diabetic chronic kidney disease; N18.9 Chronic kidney disease, unspecified; E11.65 Type 2 diabetes mellitus with hyperglycemia; E11.40 Type 2 diabetes mellitus with diabetic neuropathy, unspecified; R41.82 Altered mental status, unspecified; E87.6 Hypokalemia; R74.8 Abnormal levels of other serum enzymes; R79.89 Other specified abnormal findings of blood chemistry; K75.81 Nonalcoholic steatohepatitis (NASH); G47.30 Sleep apnea, unspecified; I25.10 Atherosclerotic heart disease of native coronary artery without angina pectoris; E78.49 Other hyperlipidemia; E66.9 Obesity, unspecified; Z68.34 Body mass index [BMI] 34.0-34.9, adult; I25.2 Old myocardial infarction; Z79.4 Long term (current) use of insulin; Z79.82 Long term (current) use of aspirin; Z79.899 Other long term (current) drug therapy; Z86.16 Personal history of COVID-19; Z87.891 Personal history of nicotine dependence; Z95.810 Presence of automatic (implantable) cardiac defibrillator; Z98.84 Bariatric surgery status
CPT/HCPCS: 36415; 70450; 74177; 80048; 80053; 80074; 81001; 82140; 82550; 82728; 82948; 83540; 83550; 83690; 83735; 84100; 84134; 84439; 85025; 85027; 85610; 87040; 87086; 87147; 87181; 87186; 87426; 87636; 93306; 96365; 96367; 97110; 97161; 97165; 97530; 97535; 99212; 99285; A9270; C8929; C9803; G0378; G0463; J0131; J0295; J0696; J1815; J2405; J2543; J3370; J3480; J7030; J7040; J7120; Q9957; Q9967

== ENCOUNTER 2022-02-15 07:43 | Inpatient (IN) | payer MEDICARE, BC, SELFPAY ==
[2022-02-15] VITALS (40 sets, daily range): BP systolic 71–159; BP diastolic 35–93; PULSE 61–74; RESP 14–24; TEMP 36–36.6; O2SAT 96–100; BMI 31.6
--- NOTE | ~2022-02-15 | CT_ITS ---
EXAMINATION: CTA abdomen pelvis DATE: 02/15/2022 09:08 INDICATION: Gastrointestinal bleed TECHNIQUE: Computed tomographic angiography (CTA) of the abdomen and pelvis was performed with 100 mL Omnipaque-350 intravenous contrast. Additional 3D reconstructions utilizing rotating maximum intensi ty projection (MIP) were performed. Automated exposure control and iterative reconstruction technique were employed. The dose-length product was 1188.85 mGy-cm. COMPARISON: 02/08/2022 FINDINGS: Trace bilateral pleural effusions with mild dependent atelectasis. Heart size is normal. Dual-lead ca rdiac pacemaker/defibrillator with lead tips at the right atrium and apex of the right ventricle. No pericardial effusion. Small sliding-type hiatal hernia with decrease in the now mild wall thickening in the distal esophagus. Postoperative change of prior retrocolic Abigail-en-Y gastric bypass procedure with jejunojejunal anastomosis in the left abdomen. Postoperative change of prior ventral hernia mesh repair. Moderate amount stool scattered throughout the colon. No abnormal bowel wall thickening or o bstruction. The appendix is not visualized. No pericecal inflammatory change to suggest acute appendi citis. 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 2.7 cm cyst in the left hepatic lobe. Multiple calcified gallstones in the normal -appearing gallbladder. No intra or extrahepatic biliary ductal dilation. Pancreas and bilateral adre nal glands are normal. Small region of cortical scarring at the upper pole of the right kidney. There is diffuse mild bladder wall thickening with subtle haziness to the surrounding fat suspicious for c ystitis. The uterus is not identified and has likely been surgically resected. Normal caliber abdominal aorta with no aneurysm or dissection. Small amount of scattered atherosclero tic plaque without hemodynamically significant stenosis along the abdominal aorta and bilateral iliac arteries. The celiac axis, superior mesenteric and inferior mesenteric arteries are well opacified w ith contrast with no evident stenosis. No free intraperitoneal gas or fluid. No pathologically enlarged abdominal or pelvic lymphadenopathy. Moderate to severe lower lumbar spondylosis. IMPRESSION: 1. Small amount of scattered atherosclerotic plaque without hemodynamically significant stenosis funmilayo g the normal caliber abdominal aorta and bilateral iliac arteries. 2. 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 3. Cholelithiasis. 4. Persistent mild bladder wall thickening with some surrounding inflammatory stranding consistent wi th cystitis. 5. Small sliding-type hiatal hernia with improvement in now mild wall thickening the distal esophagus which could be related to reflux esophagitis. Reviewed, dictated and finalized at location A. OOR ADVENTURE INSTRUCTOR IMPRESSION: 1. Small amount of scattered atherosclerotic plaque without hemodynamically sig nificant stenosis along the normal caliber abdominal aorta and bilateral iliac arteries. 2. 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 3. Cholelithiasis. 4. Persistent mild bladder wall thickening with some surrounding inflammatory s tranding consistent with cystitis. 5. Small sliding-type hiatal hernia with improvement in now mild wall thickenin g the distal esophagus which could be related to reflux esophagitis.
--- NOTE | ~2022-02-15 | CT_ITS ---
EXAMINATION: CT brain wo con DATE: 02/17/2022 15:08 INDICATION: Altered mental status. TECHNIQUE: Computed tomography (CT) of the head was performed without intravenous contrast. The dose- length product was 605.33 mGy-cm. Automated exposure control and iterative reconstruction technique w ere employed. COMPARISON: CT dated 02/04/2022 FINDINGS: Generalized atrophy. No ventriculomegaly or midline shift. There are scattered moderate per iventricular and subcortical white matter changes, most likely related to small vessel ischemic disea se (microangiopathy). There is intracranial atherosclerosis. Paranasal sinuses and mastoids are pneum atized. No depressed skull fractures. There is an old fracture of the right lamina papyracea. IMPRESSION: 1. No acute intracranial abnormality. 2: Chronic age-related findings. Reviewed, dictated and finalized at location B. ARY SUBSTANCE ABUSE COUNSELOR
--- NOTE | ~2022-02-15 | XR_ITS ---
XR chest 1V portable DATE: 02/19/2022 05:58 INDICATION: Mental status change TECHNIQUE: Portable AP chest on 02/19/2022 at 0551 hours COMPARISON: 08/16/2018 AP and lateral chest FINDINGS: Left-sided pacemaker/defibrillator device with leads overlying right atrium and right ventr icle. Normal heart size. There is infiltrate and/or atelectasis in the left lower lobe. No pulmonary vascular congestion or pleural effusion or pneumothorax is detected. Osteopenia. IMPRESSION: Left lower lobe infiltrate and/or atelectasis Reviewed, dictated and finalized at location A. MAINTENANCE TECHNICIAN
[2022-02-15 08:14] LABS: Basophils Absolute Auto 0.1 K/mm3 (0.0-0.1); Basophils Percent Auto 0.7 % (0.2-1.2); Eosinophils Absolute Auto 0.1 K/mm3 (0-0.3); Eosinophils Percent Auto 1.2 % (0-4.4); Hematocrit 27.1 % (37.0-47.0); Hemoglobin 8.6 g/dL (12.0-15.0); Immature Granulocyte Absolute 0.07 K/mm3 (0.00-0.031); Immature Granulocyte Percent A 0.7 % (0-0.5); Lymphocytes Absolute Auto 0.87 K/mm3 (0.9-3.2); Lymphocytes Percent Auto 8.3 % (18.3-44.2); Mean Corpuscular HGB Conc 31.7 g/dl (32-36); Mean Corpuscular Hemoglobin 30.2 pg (26-34); Mean Corpuscular Volume 95.1 fl (80-100); Mean Platelet Volume 9.8 fl (7.4-10.4); Monocytes Absolute Auto 0.9 K/mm3 (0.1-0.6); Monocytes Percent Auto 8.8 % (2.6-8.5); Neutrophils Absolute Auto 8.5 K/mm3 (1.3-6.7); Neutrophils Percent Auto 80.3 % (45.5-73.1); Platelet Count Result 434 k/mm3 (150-375); Red Blood Count 2.85 M/mm3 (4.2-5.4); Red Cell Distribution Width 13.1 % (11.5-14.5); White Blood Count 10.5 K/mm3 (4.5-10.0)
[2022-02-15 08:26] LABS: INR 1.3; Prothrombin Time 15.3 Seconds (11.1-14.7)
[2022-02-15 08:27] LABS: Partial Thromboplastin Time 25.7 SECONDS (22.3-36.8)
[2022-02-15 08:32] LABS: Alanine Aminotransferase 35 U/L (6-35); Alkaline Phosphatase 102 U/L (38-126); Anion Gap 5 mmol/L (8-16); Aspartate Amino Transferase 31 U/L (14-36); Blood Urea Nitrogen 25 mg/dL (7-17); Calcium 7.6 mg/dL (8.4-10.2); Carbon Dioxide 22 mmol/L (22-30); Chloride 102 mmol/L (98-107); Estimated CRCL calculation 34 ml/min; Estimated Glomerular Filt Rate 36; Glucose 257 mg/dL (65-110); Potassium 4.1 mmol/L (3.4-5.0); Sodium 129 mmol/L (137-145)
--- NOTE | 2022-02-15 08:48 | ED.GENADULT ---
HPI - General Adult General Chief complaint: GI Bleed Stated complaint: vomiting blood Time Seen by Provider: 02/15/22 08:42 History of Present Illness HPI narrative: 81-year-old female presents for evaluation of GI bleeding. Patient states that she had 2 episodes of bright red vomiting this morning and believes that it was blood. She does admit mild diffuse abdominal pain with palpation. No symptoms when going to bed last night and has never had similar symptoms in the past. She takes a baby aspirin daily. Related Data Home Medications Medication Instructions Recorded Confirmed calcium carbonate 500 mg-vitamin 1 tablet PO DAILY 04/03/19 02/04/22 D3 10 mcg (400 unit) tablet (Calcium 500 + D) aspirin 81 mg tablet,delayed 81 mg PO DAILY 10/01/19 02/04/22 release multivitamin 1 tablet PO DAILY 10/01/19 02/04/22 carvedilol 12.5 mg tablet 12.5 mg PO BID 03/17/21 02/04/22 rosuvastatin 20 mg tablet 20 mg PO DAILY 03/17/21 02/04/22 furosemide 20 mg tablet (Lasix) 40 mg PO DAILY 02/04/22 02/04/22 Allergies Allergy/AdvReac Type Severity Reaction Status Date / Time No Known Allergies Allergy Unknown Verified 02/05/22 13:45 Review of Systems Review of Systems: CONSTITUTIONAL: Denies fever, chills, or sweats. EYES: Denies visual changes, redness, or discharge. ENT: Denies rhinorrhea, congestion, sore throat, or otalgia. CARDIOVASCULAR: Denies chest pain, palpitations, or edema. RESPIRATORY: Denies cough or dyspnea. GASTROINTESTINAL: Denies abdominal pain, nausea, vomiting, or diarrhea. GENITOURINARY: Denies dysuria or hematuria. SKIN: Denies rash or itching. MUSCULOSKELETAL: Denies back pain, joint pain, or myalgia. NEUROLOGIC: Denies headache, numbness, or weakness. PSYCHIATRIC: Denies anxiety or depression. [facility] Past Medical History Medical History (Updated 02/07/22 @ 13:44 by Damon Paez MD) (HFpEF) heart failure with preserved ejection fraction Anxiety Arthritis Bacteremia BPPV (benign paroxysmal positional vertigo) CAD (coronary artery disease) CHF (congestive heart failure) CKD (chronic kidney disease) Closed fracture of right humerus Constipation COVID-19 Depression Diabetes Diplopia Dizziness Eczema Elevated troponin Gallstone pancreatitis Gout Hyperlipidemia Hypertension ICD (implantable cardioverter-defibrillator) in place Insomnia Left leg swelling CONTRERAS (nonalcoholic steatohepatitis) Neuropathy NSTEMI (non-ST elevated myocardial infarction) Organic sleep apnea Osteoarthritis Seasonal allergies Sleep apnea Sleep disorder Transaminitis Type 2 diabetes mellitus Urinary frequency Vision abnormalities Vitamin D deficiency Weight gain Weight loss Surgical History Surgical History (Updated 02/05/22 @ 14:43 by Damon Paez MD) Gastric bypass status for obesity H/O: hysterectomy History of carpal tunnel repair History of ventral hernia repair Post-op changes noted on CT Hx of gastric bypass Hx of heart artery stent Family History Family History Father Heart disease Mother Heart disease Sibling Heart disease Father Acute myocardial infarction Patient's father is Mother Acute myocardial infarction Family history of diabetes mellitus in first degree relative, Onset Age: 79 Patient's mother is Diabetes mellitus Sibling Family history of malignant neoplasm Other Arthritis Family history of obesity Hypertension Social History Social History Social History: Lidia Ortega lives at her home with her son. She is retired. She is a former smoker and believes she quit approximately 12 years ago[facility] Smoking packs per day: 2 Smoking cigarettes per day: 40.0 Years smoked: 58 Smoking pack-years: 116.00 Smoking status: Former smoker Second hand
[2022-02-15] MEDS: PANTOPRAZOLE SODIUM IV 40 MG VIAL 80 MG IV PUSH (11:01)
--- NOTE | 2022-02-15 13:09 | PM.IMHP ---
H&P: HPI History of Present Illness Date/Time: 02/15/22 13:09 Chief Complaint: GI bleed Narrative: This is a 81-year-old female patient with a history of gastric bypass surgery came to the emergency room to be evaluated for GI bleed. it was reported in ER records that the patient had vomited blood x2. This started this morning. The patient was having some mild diffuse lower abdominal pain. The patient takes a baby aspirin daily. Her blood pressures were noted to be 93/50 1 time or 2 it has dropped lower than that. On 02/10/2022 her hemoglobin was 10.2. Today it was 8.6 and a repeat hemoglobin was 7.9. Patient is very pale and ill-appearing. GI has been consulted. The patient was started on a Protonix drip given Rocephin and IV fluids. GI has been consulted. The abdominal CT was read as 1. Small amount of scattered atherosclerotic plaque without hemodynamically significant stenosis along the normal caliber abdominal aorta and bilateral iliac arteries. 2. 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 3. Cholelithiasis. 4. Persistent mild bladder wall thickening with some surrounding inflammatory stranding consistent with cystitis. 5. Small sliding-type hiatal hernia with improvement in now mild wall thickening the distal esophagus which could be related to reflux esophagitis. The patient is being admitted to observation status on the date of service of 02/15/2022. Review of Systems Review of Systems: see hpi All systems reviewed & are unremarkable except as noted in HPI and below Constitutional: Constitutional: Reports as per HPI and Reports no additional constitutional complaints Eyes: Eyes: Reports as per HPI and Reports no additional eye complaints ENT: Reports system reviewed and no additional complaints, except as documented and Reports Normal hearing present Cardiovascular: Cardiovascular: Reports no additional cardiovascular complaints Respiratory: Respiratory: Reports no additional respiratory complaints and Reports no additional respiratory complaints Gastrointestinal: Gastrointestinal: Reports as per HPI and Reports no additional gastrointestinal complaints Musculoskeletal: Musculoskeletal: Reports no additional musculoskeletal complaints Integumentary/Breasts: Skin/Breast: Reports system reviewed and no additional complaints, except as docu and Reports as per HPI Neurologic: Reports system reviewed and no additional complaints, except as documented, Reports as per HPI and Reports Normal hearing present Psychiatric: Psychiatric: Reports no additional psychiatric complaints and Reports as per HPI Endocrine: Endocrine: Reports no additional endocrine complaints Hematologic/Lymphatic: Hematologic/Lymphatic: Reports no additional hematologic/lymphatic complaints Allergic/Immunologic: Allergic/Immunologic: Reports no additional allergic/immunologic complaints [facility] Past Medical History Medical History (Updated 02/15/22 @ 15:11 by Marta Lux NP) (HFpEF) heart failure with preserved ejection fraction Anxiety Arthritis Bacteremia BPPV (benign paroxysmal positional vertigo) CAD (coronary artery disease) CHF (congestive heart failure) CKD (chronic kidney disease) Closed fracture of right humerus Constipation COVID COVID-19 Depression Diabetes Diplopia Dizziness Eczema Elevated troponin Gallstone pancreatitis Gout Hyperlipidemia Hypertension ICD (implantable cardioverter-defibrillator) in place Insomnia Left leg swelling CONTRERAS (nonalcoholic steatohepatitis) Neuropathy NSTEMI (non-ST elevated myocardial infarction) Organic sleep apnea Osteoarthritis Seasonal allergies Sleep apnea Sleep disorder Transaminitis Type 2 diabetes mellitus Urinary frequency Vision abnormalities Vitamin D deficiency Weight gain Weight loss Surgical History Surgical History Gastric bypass status for obesity H/O: hysterectomy History of carpal tunnel repa
[2022-02-15] MEDS: LACTATED RINGERS 1,000 ML 500 ML IV CONT (13:10)
[2022-02-15 13:42] LABS: Hematocrit 24.3 % (37.0-47.0); Hemoglobin 7.9 g/dL (12.0-15.0); Mean Corpuscular HGB Conc 32.5 g/dl (32-36); Mean Corpuscular Hemoglobin 29.9 pg (26-34); Platelet Count Result 432 k/mm3 (150-375); Red Blood Count 2.64 M/mm3 (4.2-5.4); Red Cell Distribution Width 13.2 % (11.5-14.5); White Blood Count 9.5 K/mm3 (4.5-10.0)
--- NOTE | 2022-02-15 14:12 | WPDGICN ---
Assessment and Plan Assessment and plan (1) Hematemesis: Code(s): K92.0 - Hematemesis Status: Acute Assessment and Plan: Her blood pressure was low, 70 systolic briefly when I saw her in the emergency room. She is also pale and obviously has lost a significant amount of blood. No hemorrhage since she got to the hospital. The plan is to perform an EGD today. I did Explain that she may have an ulcer or possibly varices given the fact that she does have a portal vein thrombosis (2) Elevated LFTs: Code(s): R79.89 - Other specified abnormal findings of blood chemistry Status: Acute Assessment and Plan: last week these were significantly elevated suggesting choledocholithiasis. Because they have come down and are now normalized she probably passed a common duct stone. The plan is for her to eventually have an outpatient cholecystectomy. (3) Gastric bypass status for obesity: Code(s): Z98.84 - Bariatric surgery status Status: Acute Assessment and Plan: Because of the Abigail-en-Y procedure she is not a candidate for ERCP. He she has however at more risk for it jejunal or anastomotic ulcer. (4) CONTRERAS (nonalcoholic steatohepatitis): Code(s): K75.81 - Nonalcoholic steatohepatitis (CONTRERAS) Status: Acute Assessment and Plan: CT scan does not show any evidence of cirrhosis. I am however concerned she could have esophageal varices given the fact he has portal vein thrombosis. Neck a she would esophageal banding. (5) Portal vein thrombosis: Code(s): I81 - Portal vein thrombosis Status: Acute Assessment and Plan: she does not have any history of liver disease or cirrhosis. She happens to be on carvedilol 12.5 mg b.i.d. which would be an appropriate dose to treat portal hypertension but I do not think that she has ever been found to have varices. She is fairly certain she has not had an EGD. (6) ICD (implantable cardioverter-defibrillator) in place: Code(s): Z95.810 - Presence of automatic (implantable) cardiac defibrillator Status: Acute Assessment and Plan: Because of this a magnet may be necessary if we are going to apply cautery for GI bleed GI Consult Note Consult date/time: 02/15/22 14:12 HPI: Lidia Ortega is a 81 year old female Present to the emergency room this morning with complaints of hematemesis. On 2 occasions where she vomited blood which was relatively bright red and contained clots. She has not had abdominal pain. She feels warmer slightly feverish now. She has never had an ulcer. She denies weight loss or nausea prior to today. She has had no change in bowel habits. She denies seen black or tarry stools. She does take an aspirin tablet daily. She does not use NSAIDs. She was recently hospitalized because of abdominal pain and found to have gallstones. Also she had elevated bilirubin and liver enzymes suggestive of choledocholithiasis. MRCP could not be done due to pacemaker, and ERCP was not able to be done because she has had a Abigail-en-Y gastric bypass. Her bilirubin is normal today. Her hemoglobin was recently 10.2 and today it is 8.6. Repeat is 7.9. Her BUN which was 10 last week is 25 now. Review of Systems Review of Systems: All systems reviewed & are unremarkable except as noted in HPI and below PMFSH Past Medical History Medical History (Updated 02/15/22 @ 16:48 by Niranjan Quijano MD) (HFpEF) heart failure with preserved ejection fraction Anxiety Arthritis Bacteremia BPPV (benign paroxysmal positional vertigo) CAD (coronary artery disease) CHF (congestive heart failure) CKD (chronic kidney disease) Closed fracture of right humerus Constipation COVID COVID-19 Depression Diabetes Diplopia Dizziness Eczema Elevated troponin Gallstone pancreatitis Gout Hyperlipidemia Hypertension ICD (implantable cardioverter-defibrillator) in place Insomnia Left leg swelling DIANE (non
--- NOTE | 2022-02-15 14:45 | WPDANESEPPF ---
Anes - Initial Pre Proc Eval Procedure: Operation Date: 02/15/22 16:00 Proposed Procedures p Esophagogastroduodenoscopy EGD - Niranjan Quijano MD Date/Time: 02/15/22 14:45 Surgeon: Atif Pablo MD Pre Op Diagnosis: Upper GI Bleed Patient Data Age: 81 Gender: F Height: 1.7 m Weight: 91 kg Last Vital Signs Temp 97.2 F L 02/15/22 07:43 Pulse 70 02/15/22 12:16 Resp 19 02/15/22 12:16 BP 99/43 L 02/15/22 12:16 Pulse Ox 97 02/15/22 12:16 O2 Del Method Room Air 02/15/22 07:43 Allergies Allergy/AdvReac Type Severity Reaction Status Date / Time No Known Allergies Allergy Unknown Verified 02/05/22 13:45 Home Medications Medication Instructions Recorded Confirmed Type pen needle, diabetic 31 gauge x #30 ea 01/29/19 02/04/22 Rx 1/4 (1st Tier Unifine Pentips) losartan 50 mg tablet 50 mg PO DAILY #90 tabs 02/08/19 02/04/22 Rx calcium carbonate 500 mg-vitamin 1 tablet PO DAILY 04/03/19 02/04/22 History D3 10 mcg (400 unit) tablet (Calcium 500 + D) aspirin 81 mg tablet,delayed 81 mg PO DAILY 10/01/19 02/04/22 History release multivitamin 1 tablet PO DAILY 10/01/19 02/04/22 History isosorbide mononitrate 30 mg 30 mg PO DAILY #30 tabs 07/22/20 02/04/22 Rx tablet,extended release 24 hr carvedilol 12.5 mg tablet 12.5 mg PO BID 03/17/21 02/04/22 History rosuvastatin 20 mg tablet 20 mg PO DAILY 03/17/21 02/04/22 History paroxetine HCl 20 mg tablet See Rx Instructions .Route 05/01/21 02/04/22 Rx .COMPLEX #180 tabs nitrofurantoin macrocrystal 100 mg 100 mg PO DAILY #30 caps 07/06/21 02/04/22 Rx capsule insulin glargine 100 unit/mL See Rx Instructions subcut BID #30 07/20/21 02/04/22 Rx subcutaneous solution (Lantus mL U-100 Insulin) insulin syringe-needle U-100 1 mL #300 ea 07/22/21 02/04/22 Rx 30 gauge x 08/10 zolpidem 10 mg tablet 5 mg PO HS #15 tabs 11/23/21 02/04/22 Rx semaglutide 1 mg/dose (2 mg/1.5 1 mg (0.75 mL) subcut WEEKLY 90 12/31/21 02/04/22 Rx mL) subcutaneous pen injector days #9 mL furosemide 20 mg tablet (Lasix) 40 mg PO DAILY 02/04/22 02/04/22 History amoxicillin 875 mg-potassium 1 tablet PO Q12H 10 days #20 tabs 02/10/22 Rx clavulanate 125 mg tablet Laboratory Tests 02/15/22 02/15/22 02/15/22 08:09 08:09 08:09 WBC 10.5 K/mm3 H K/mm3 (4.5-10.0) RBC 2.85 M/mm3 L M/mm3 (4.2-5.4) Hgb 8.6 g/dL L g/dL (12.0-15.0) Hct 27.1 % L % (37.0-47.0) MCV 95.1 fl D fl (80-100) MCH 30.2 pg pg (26-34) MCHC 31.7 g/dl L g/dl (32-36) RDW 13.1 % % (11.5-14.5) Plt Count 434 k/mm3 H D k/mm3 (150-375) MPV 9.8 fl fl (7.4-10.4) Immature Gran % (Auto) 0.7 % H % (0-0.5) Neut % (Auto) 80.3 % H % (45.5-73.1) Lymph % (Auto) 8.3 % L % (18.3-44.2) [place] % (Auto) 8.8 % H % (2.6-8.5) Eos % (Auto) 1.2 % % (0-4.4) Baso % (Auto) 0.7 % % (0.2-1.2) Lymph # (Auto) 0.87 K/mm3 L K/mm3 (0.9-3.2) [place] # (Auto) 0.9 K/mm3 H K/mm3 (0.1-0.6) Eos # (Auto) 0.1 K/mm3 K/mm3 (0-0.3) Baso # (Auto) 0.1 K/mm3 K/mm3 (0.0-0.1) Abs Immat Gran (auto) 0.07 K/mm3 H K/mm3 (0.00-0.031) Absolute Neuts (auto) 8.5 K/mm3 H K/mm3 (1.3-6.7) Absolute Nucleated RBC 0.0 K/mm3 K/mm3 (0.0-0.012) Nucleated RBC % 0.0 % % (0.0-0.2) PT 15.3 Seconds H Seconds (11.1-14.7) INR 1.3 APTT 25.7 SECONDS SECONDS (22.3-36.8) Sodium 129 mmol/L L mmol/L (137-145) Potassium 4.1 mmol/L mmol/L (3.4-5.0) Chloride 102 mmol/L mmol/L (98-107) Carbon Dioxide 22 mmol/L mmol/L (22-30) Anion Gap 5 mmol/L L mmol/L (8-16) BUN 25 mg/dL H D mg/dL (7-17) Creatinine 1.40 mg/dL H mg/dL (0.7-1.0) Estim Creat Clear Calc 34 ml/min ml/
[2022-02-15] MEDS: LACTATED RINGERS 1,000 ML 150 ML IV CONT (15:00)
[2022-02-15] MEDS: EPINEPHrine INJ 1 MG/10 ML SYRINGE 0.75 MG XX (16:19)
[2022-02-15 16:33] LABS: Glucose Point of Care 177 mg/dl (65-105)
[2022-02-15 16:33] LABS: Glucose Point of Care 176 mg/dl (65-105)
[2022-02-15 17:06] LABS: Hemoglobin A1C 10.2 % (<5.7)
[2022-02-15 17:33] LABS: Hematocrit 26.8 % (37.0-47.0); Hemoglobin 8.6 g/dL (12.0-15.0)
[2022-02-15 17:55] LABS: Anion Gap 9 mmol/L (8-16); Blood Urea Nitrogen 39 mg/dL (7-17); Calcium 8.1 mg/dL (8.4-10.2); Carbon Dioxide 24 mmol/L (22-30); Chloride 100 mmol/L (98-107); Estimated CRCL calculation 33 ml/min; Estimated Glomerular Filt Rate 40; Glucose 179 mg/dL (65-110); Potassium 4.8 mmol/L (3.4-5.0); Sodium 133 mmol/L (137-145)
--- NOTE | 2022-02-15 17:56 | ADMGEN ---
This patient, Lidia Ortega, was admitted to IMU Room 213-01. Patient/family oriented to hospital policies and general routines including ID bracelet, bed and alarms, visiting hours, pain management, procedures, bathroom and other care routines, personal items, smoking policy, room service/diet, and visiting hours. Information on how to activate the Rapid Response Team has been discussed. Patient/Family are encouraged to report perceived risks to care and to ask questions if they do not understand what they are told or what they should do.
[2022-02-15] MEDS: SODIUM CHLORIDE 0.9% IV 1,000 ML 50 ML IV CONT (18:05)
[2022-02-15 19:45] LABS: Glucose Point of Care 163 mg/dl (65-105)
[2022-02-15 20:08] LABS: Appearance Urine Cloudy (Clear); Bilirubin Urine Negative (Negative); Blood Urine 1+ (Negative); Color Urine Yellow (Yellow); Glucose Urine UA Negative (Negative); Ketones Urine Negative (Negative); Leukocyte Esterase Ur 1+ LEU/UL (NEGATIVE); Nitrate Urine Negative (Negative); Protein Urine Trace mg/dL (Negative); Urobilinogen Urine 0.2 mg/dL (<2.0); pH Urine 5.5 (5.0-9.0)
[2022-02-15 20:10] LABS: Budding Yeast Urine Present /hpf; Mucus Urine Rare /lpf; Squamous Epithelial Cell Urine Many /hpf (Few); WBC Urine >75 /hpf (0-3)
[2022-02-15 20:12] LABS: Add Urine Microscopic? YES
[2022-02-15] MEDS: INSULIN GLARGINE (*BKC) 100 UNITS/ML 45 UNITS SUB-Q (20:45)
[2022-02-15] MEDS: ZOLPIDEM TARTRATE (*CRX) 5 MG TABLET PO (20:51)
[2022-02-15] MEDS: carvediloL 12.5 MG TABLET PO (20:52)
[2022-02-15] MEDS: PARoxetine 20 MG TABLET 40 MG PO (20:52)
[2022-02-15] MEDS: PANTOPRAZOLE SODIUM IV 40 MG VIAL IV PUSH (20:52)
[2022-02-15] MEDS: AMOXICILLIN/CLAVULANATE K 875-125 MG TAB 1 TABLET PO (21:50)
[2022-02-15 23:29] LABS: Hematocrit 22.1 % (37.0-47.0); Hemoglobin 7.2 g/dL (12.0-15.0)
[2022-02-16] VITALS (24 sets, daily range): BP systolic 84–138; BP diastolic 31–98; PULSE 60–79; RESP 18–97; TEMP 35.8–36.6; O2SAT 97–100; BMI 31.6
[2022-02-16 04:18] LABS: Hematocrit 22.5 % (37.0-47.0); Hemoglobin 7.3 g/dL (12.0-15.0)
--- NOTE | 2022-02-16 04:18 | PC.NURSE ---
Care of pt to be resumed by MANAS Browning. Report given and all questions answered.
[2022-02-16 04:19] LABS: Basophils Absolute Auto 0.1 K/mm3 (0.0-0.1); Basophils Percent Auto 0.7 % (0.2-1.2); Eosinophils Absolute Auto 0.2 K/mm3 (0-0.3); Hematocrit 21.8 % (37.0-47.0); Hemoglobin 7.2 g/dL (12.0-15.0); Immature Granulocyte Absolute 0.03 K/mm3 (0.00-0.031); Immature Granulocyte Percent A 0.3 % (0-0.5); Lymphocytes Absolute Auto 1.67 K/mm3 (0.9-3.2); Lymphocytes Percent Auto 19.4 % (18.3-44.2); Mean Corpuscular Hemoglobin 29.8 pg (26-34); Mean Corpuscular Volume 90.1 fl (80-100); Mean Platelet Volume 9.8 fl (7.4-10.4); Monocytes Absolute Auto 0.9 K/mm3 (0.1-0.6); Monocytes Percent Auto 10.6 % (2.6-8.5); Neutrophils Absolute Auto 5.8 K/mm3 (1.3-6.7); Platelet Count Result 393 k/mm3 (150-375); Red Blood Count 2.42 M/mm3 (4.2-5.4); Red Cell Distribution Width 13.2 % (11.5-14.5); White Blood Count 8.6 K/mm3 (4.5-10.0)
[2022-02-16 04:38] LABS: Lactic Acid Reflex 0.9 mmol/L (0.7-2.0)
[2022-02-16 04:39] LABS: Alanine Aminotransferase 31 U/L (6-35); Albumin Level 2.9 g/dL (3.5-5.1); Alkaline Phosphatase 90 U/L (38-126); Anion Gap 6 mmol/L (8-16); Aspartate Amino Transferase 32 U/L (14-36); Bilirubin,Total 0.9 mg/dL (0.2-1.3); Blood Urea Nitrogen 35 mg/dL (7-17); Calcium 7.9 mg/dL (8.4-10.2); Carbon Dioxide 25 mmol/L (22-30); Chloride 104 mmol/L (98-107); Estimated CRCL calculation 33 ml/min; Estimated Glomerular Filt Rate 40; Glucose 63 mg/dL (65-110); Lipase 354 U/L (23-300); Magnesium 2.4 mg/dL (1.6-2.3); Potassium 3.6 mmol/L (3.4-5.0); Sodium 135 mmol/L (137-145)
--- NOTE | 2022-02-16 07:51 | WPDGIPROGNO ---
Progress Note: A&P Assessment and Plan (1) Hematemesis: Code(s): K92.0 - Hematemesis Status: Acute Assessment and Plan: Her blood pressure was low, 70 systolic briefly when I saw her in the emergency room. She is also pale and obviously has lost a significant amount of blood. No hemorrhage since she got to the hospital. The plan is to perform an EGD today. I did Explain that she may have an ulcer or possibly varices given the fact that she does have a portal vein thrombosis 02/16/2022 no further emesis and no evidence of active bleeding. Hemoglobin is stable at 7.2. I told her that there is a risk of rebleeding, particularly the 1st 48 hours and therefore we will slowly advance her diet with hopes that she can be discharged tomorrow. (2) Elevated LFTs: Code(s): R79.89 - Other specified abnormal findings of blood chemistry Status: Acute Assessment and Plan: last week these were significantly elevated suggesting choledocholithiasis. Because they have come down and are now normalized she probably passed a common duct stone. The plan is for her to eventually have an outpatient cholecystectomy. (3) Gastric bypass status for obesity: Code(s): Z98.84 - Bariatric surgery status Status: Acute Assessment and Plan: Because of the Abigail-en-Y procedure she is not a candidate for ERCP. He she has however at more risk for it jejunal or anastomotic ulcer. (4) CONTRERAS (nonalcoholic steatohepatitis): Code(s): K75.81 - Nonalcoholic steatohepatitis (CONTRERAS) Status: Acute Assessment and Plan: CT scan does not show any evidence of cirrhosis. Fortunately, varices were not seen on endoscopy. (5) Portal vein thrombosis: Code(s): I81 - Portal vein thrombosis Status: Acute Assessment and Plan: she does not have any history of liver disease or cirrhosis. She happens to be on carvedilol 12.5 mg b.i.d. which would be an appropriate dose to treat portal hypertension but I do not think that she has ever been found to have varices. She is fairly certain she has not had an EGD. (6) ICD (implantable cardioverter-defibrillator) in place: Code(s): Z95.810 - Presence of automatic (implantable) cardiac defibrillator Status: Acute Assessment and Plan: Because of this a magnet may be necessary if we are going to apply cautery for GI bleed (7) Anemia due to blood loss: Code(s): D50.0 - Iron deficiency anemia secondary to blood loss (chronic) Status: Acute Assessment and Plan: Hemoglobin dropped to a low of 7.2 and has remained there for the past 3 samples. If any lower, she would likely need transfusion. Subjective Date/time seen: 02/16/22 07:51 No complaints today. She did tolerate clear liquids last night. She has had no stools yet. No more emesis either. She denies abdominal pain. She was somewhat uncomfortable for an hour so after the EGD with cautery and injection of epinephrine yesterday. That however has resolved. I told her that we will try advancing her diet but that there is still risk of rebleeding particularly the 1st 48 hours. Exam Const: General: alert Nutritional Appearance: obese Orientation/consciousness: patient oriented x3 Resp: Auscultation: clear to auscultation bilaterally Cardio: Rhythm: regular rhythm GI: GI Palp: Yes Soft to palpation, Yes Tenderness to palpation present (GI) ( Slight tenderness right upper quadrant) and Yes No hepatosplenomegaly present Auscultation: normal bowel sounds Neuro: General: patient oriented x3 Objective Data Vital Signs Vital Signs: Vital Signs - 24 hr 02/15/22 11:00 02/15/22 10:42 02/15/22 11:03 Temperature Pulse Rate 69 67 69 Respiratory Rate 16 16 22 H Blood Pressure 97/71 L 93/50 L Pulse Oximetry 100 98 98 Oxygen Delivery 02/15/22 11:15 02/15/22 12:01 02/15/22 12:02 Temperature Pulse Rate 69 69 67 Respiratory Rate 17 20 14 B
[2022-02-16 07:55] LABS: Glucose Point of Care 61 mg/dl (65-105)
--- NOTE | 2022-02-16 08:08 | PC.NURSE ---
pt glucose 61, pt refused oral glucose medication (see MAR), pt given apple juice and currently eating breakfast
[2022-02-16] MEDS: carvediloL 12.5 MG TABLET PO (08:23)
[2022-02-16] MEDS: AMOXICILLIN/CLAVULANATE K 875-125 MG TAB 1 TABLET PO ×2 (08:23→20:23)
--- NOTE | 2022-02-16 08:23 | PC.NURSE ---
blood sugar rechecked after apple juice admin, bs 115
[2022-02-16 08:24] LABS: Glucose Point of Care 115 mg/dl (65-105)
[2022-02-16] MEDS: ROSUVASTATIN 10 MG TABLET 20 MG PO (08:24)
[2022-02-16] MEDS: PANTOPRAZOLE SODIUM IV 40 MG VIAL IV PUSH ×2 (08:24→20:23)
[2022-02-16] MEDS: MULTIVITAMINS THERAPEUTIC TAB (*BKC) 1 TABLET PO (08:24)
[2022-02-16] MEDS: FUROSEMIDE 40 MG TABLET PO (08:24)
[2022-02-16] MEDS: ISOSORBIDE MONONITRATE 30 MG TAB.ER.24H PO (08:24)
[2022-02-16] MEDS: LOSARTAN POTASSIUM 50 MG TABLET PO (08:24)
[2022-02-16 09:22] LABS: Hematocrit 23.8 % (37.0-47.0); Hemoglobin 7.4 g/dL (12.0-15.0)
--- NOTE | 2022-02-16 11:34 | WPDANESPN ---
Anes - Prog Note Post-Op Date/Time: 02/16/22 11:34 Vital Signs: Last Vital Signs Temp 35.8 C L 02/16/22 08:04 Pulse 67 02/16/22 08:23 Resp 20 02/16/22 08:04 BP 103/49 L 02/16/22 08:04 Pulse Ox 97 02/16/22 08:04 O2 Del Method Room Air 02/16/22 08:00 Pain Score (VAS): 0 I/O: Intake & Output 02/15/22 02/16/22 02/16/22 23:59 07:59 15:59 Intake Total 290 725 Output Total 500 Balance -210 725 Laboratory Tests 02/16/22 09:12 02/16/22 03:56 02/15/22 02/15/22 02/15/22 13:21 13:21 15:03 WBC 9.5 RBC 2.64 L Hgb 7.9 L Hct 24.3 L MCV 92.0 MCH 29.9 MCHC 32.5 RDW 13.2 Plt Count 432 H MPV 10.0 Immature Gran % (Auto) Neut % (Auto) Lymph % (Auto) [place] % (Auto) Eos % (Auto) Baso % (Auto) Lymph # (Auto) [place] # (Auto) Eos # (Auto) Baso # (Auto) Abs Immat Gran (auto) Absolute Neuts (auto) Absolute Nucleated RBC Nucleated RBC % Sodium Potassium Chloride Carbon Dioxide Anion Gap BUN Creatinine Estim Creat Clear Calc Estimated GFR Glucose POC Capillary Glucose 176 H Hemoglobin A1c 10.2 H Lactic Acid Calcium Magnesium Total Bilirubin AST ALT Alkaline Phosphatase Total Protein Albumin Lipase TSH (Reflex) Urine Color Urine Appearance Urine pH Ur Specific [place] Urine Protein Urine Glucose (UA) Urine Ketones Ur Blood (Man) Urine Nitrate Urine Bilirubin Urine Urobilinogen Ur Leukocyte Esterase Urine RBC Urine WBC Ur Squamous Epith Cells Urine Mucus Urine Yeast (Budding) 02/15/22 02/15/22 02/15/22 16:30 17:11 17:11 WBC RBC Hgb 8.6 L Hct 26.8 L MCV MCH MCHC RDW Plt Count MPV Immature Gran % (Auto) Neut % (Auto) Lymph % (Auto) [place] % (Auto) Eos % (Auto) Baso % (Auto) Lymph # (Auto) [place] # (Auto) Eos # (Auto) Baso # (Auto) Abs Immat Gran (auto) Absolute Neuts (auto) Absolute Nucleated RBC Nucleated RBC % Sodium 133 L Potassium 4.8 Chloride 100 Carbon Dioxide 24 Anion Gap 9 BUN 39 H D Creatinine 1.30 H Estim Creat Clear Calc 33 Estimated GFR 40 L Glucose 179 H POC Capillary Glucose 177 H Hemoglobin A1c Lactic Acid Calcium 8.1 L Magnesium Total Bilirubin AST ALT Alkaline Phosphatase Total Protein Albumin Lipase TSH (Reflex) Urine Color Urine Appearance Urine pH Ur Specific [place] Urine Protein Urine Glucose (UA) Urine Ketones Ur Blood (Man) Urine Nitrate Urine Bilirubin Urine Urobilinogen Ur Leukocyte Esterase Urine RBC Urine WBC Ur Squamous Epith Cells Urine Mucus Urine Yeast (Budding) 02/15/22 02/15/22 02/15/22 19:41 19:55 23:16 WBC RBC Hgb 7.2 L Hct 22.1 L MCV MCH MCHC RDW Plt Count MPV Immature Gran % (Auto) Neut % (Auto) Lymph % (Auto) [place] % (Auto) Eos % (Auto) Baso % (Auto) Lymph # (Auto) [place] # (Auto) Eos # (Auto) Baso # (Auto) Abs Immat Gran (auto) Absolute Neuts (auto) Absolute Nucleated RBC Nucleated RBC % Sodium Potassium Chloride Carbon Dioxide Anion Gap BUN Creatinine Estim Creat Clear Calc Estimated GFR Glucose POC Capillary Glucose 163 H Hemoglobin A1c Lactic Acid Calcium Magnesium Total Bilirubin AST ALT Alkaline Phosphatase Total Protein Albumin Lipase TSH (Reflex) Urine Color Yellow Urine Appearance Cloudy H Urine pH 5.5 Ur Specific [place] 1.010 Urine Protein Trace Urine Glucose (UA) Negative Urine Ketones Negative Ur Blood (Man) 1+ H Urine Nitrate Negative Urine Bilirubin Negative Urine Urobilinogen 0.2 Ur Leukocy
[2022-02-16 11:59] LABS: Glucose Point of Care 274 mg/dl (65-105)
[2022-02-16] MEDS: TUBING, BLOOD PLUM PUMP TUBING 1 EACH XX (12:00)
[2022-02-16] MEDS: SODIUM CHLORIDE 0.9% IV 250 ML 30 ML IV CONT (12:00)
[2022-02-16] MEDS: INSULIN ASPART (*BKC) 100 UNITS/ML SUB-Q ×2 (12:02→16:42)
[2022-02-16] MEDS: INSULIN GLARGINE (*BKC) 100 UNITS/ML 60 UNITS SUB-Q (12:02)
[2022-02-16] MEDS: SODIUM CHLORIDE 0.9% IV 1,000 ML 100 ML IV CONT ×2 (12:04→20:24)
[2022-02-16] MEDS: SODIUM CHLORIDE 0.9% 200 ML IVPB (12:12)
[2022-02-16 12:39] LABS: Hematocrit 21.2 % (37.0-47.0)
[2022-02-16 12:41] LABS: Hemoglobin 6.8 g/dL (12.0-15.0)
--- NOTE | 2022-02-16 15:03 | PM.IMPN ---
Progress Note: A&P Assessment and Plan (1) GI bleed: Code(s): K92.2 - Gastrointestinal hemorrhage, unspecified Status: Acute Assessment and Plan: Patient presents with acute onset hematemesis. EGD showing reflux esophagitis and gastric ulcer. There was a visible vessel in the ulcer which was treated. Most likely this is etiology of her upper GI bleed. Continue Protonix. Hemoglobin was 7.2 this morning but dropped to 6.8 and a transfusion has been ordered. Blood pressure soft but this has improved with the fluids and transfusion. Appreciate GI input. Continue to follow H&H after transfusion complete. (2) Hypotension: Code(s): I95.9 - Hypotension, unspecified Status: Acute Assessment and Plan: Patient noted to be hypotensive. Most likely related to hypovolemia. Will hold her antihypertensive medications. Will hold Lasix. Transfusions been ordered. Continue IV fluids. She does have a history of CHF so will need to be cautious with rehydration. Serial H&H once transfusion is complete. (3) Gastric ulcer: Code(s): K25.9 - Gastric ulcer, unspecified as acute or chronic, without hemorrhage or perforation Status: Acute Assessment and Plan: As above. (4) Reflux esophagitis: Code(s): K21.00 - Gastro-esophageal reflux disease with esophagitis, without bleeding Status: Acute Assessment and Plan: As above. (5) CHF (congestive heart failure): Code(s): I50.9 - Heart failure, unspecified Status: Acute Assessment and Plan: Patient with hx of CHF. Echo 02/04/22 showing EF 35-40%, moderate hypokinesis, Grade I diastolic dysfunction. Will hold Lasix, COreg, Losartan and Imdur. Monitor closely in IMU (6) Acute UTI: Code(s): N39.0 - Urinary tract infection, site not specified Status: Acute Assessment and Plan: UA noted. No UCx collected. She is on Augmentin currently. Check UCx. (7) CKD (chronic kidney disease): Qualifiers: Chronic kidney disease stage: unspecified stage Qualified Code(s): N18.9 - Chronic kidney disease, unspecified Code(s): N18.9 - Chronic kidney disease, unspecified Status: Acute Assessment and Plan: Baseline Cr 1.2 range. Cr slightly elevated but better now. Monitor closely since HoTN could contribute to ATN. Avoid nephrotoxic medication. (8) Diabetes mellitus with neurological manifestation: Qualifiers: Diabetes mellitus type: type 2 Diabetes mellitus intermediate accountant insulin use: with intermediate accountant use Diabetes mellitus complication detail: with unspecified neuropathy Qualified Code(s): E11.40 - Type 2 diabetes mellitus with diabetic neuropathy, unspecified; Z79.4 - terminal operator (current) use of insulin Code(s): E11.49 - Type 2 diabetes mellitus with other diabetic neurological complication Status: Chronic Assessment and Plan: A1c was 10.2. The patient's blood glucose was reviewed on 02/16 Glucose too well controlled. Continue AccuCheks covering with sliding scale. Hypoglycemia protocol available as needed. Will decrease lantus dosing. (9) Hypertension: Qualifiers: Hypertension type: essential hypertension Qualified Code(s): I10 - Essential (primary) hypertension Code(s): I10 - Essential (primary) hypertension Status: Chronic Assessment and Plan: As above. (10) CONTRERAS (nonalcoholic steatohepatitis): Code(s): K75.81 - Nonalcoholic steatohepatitis (CONTRERAS) Status: Acute Assessment and Plan: LFTs noted. Appreciate GI input. 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 Continue home CPAP. (12) Portal vein thrombosis: Code(s): I81 - Portal vein thrombosis Status: Acute Assessment and Plan: Patient with persistent thrombosis of the left portal vein.
[2022-02-16 15:55] LABS: Hematocrit 25.3 % (37.0-47.0); Hemoglobin 8.3 g/dL (12.0-15.0)
[2022-02-16 15:59] LABS: Glucose Point of Care 246 mg/dl (65-105)
[2022-02-16 19:59] LABS: Glucose Point of Care 282 mg/dl (65-105)
[2022-02-16] MEDS: PARoxetine 20 MG TABLET 40 MG PO (20:23)
[2022-02-16 21:36] LABS: Hematocrit 25.2 % (37.0-47.0); Hemoglobin 8.3 g/dL (12.0-15.0)
[2022-02-16] MEDS: PHENYLEPH/SHARK OIL/MO/PETROL CREAM 26 GM 1 APPLIC RECTAL (23:03)
[2022-02-16] MEDS: ZOLPIDEM TARTRATE (*CRX) 5 MG TABLET PO (23:11)
[2022-02-17] VITALS (13 sets, daily range): BP systolic 135–151; BP diastolic 47–54; PULSE 75–81; RESP 18–22; TEMP 36.4–37; O2SAT 94–100
[2022-02-17 02:28] LABS: Hematocrit 24.6 % (37.0-47.0); Hemoglobin 8.2 g/dL (12.0-15.0)
[2022-02-17 05:15] LABS: Alanine Aminotransferase 28 U/L (6-35); Albumin Level 2.9 g/dL (3.5-5.1); Alkaline Phosphatase 84 U/L (38-126); Anion Gap 5 mmol/L (8-16); Aspartate Amino Transferase 29 U/L (14-36); Blood Urea Nitrogen 21 mg/dL (7-17); Calcium 7.8 mg/dL (8.4-10.2); Carbon Dioxide 21 mmol/L (22-30); Chloride 101 mmol/L (98-107); Estimated CRCL calculation 39 ml/min; Estimated Glomerular Filt Rate 48; Glucose 105 mg/dL (65-110); Phosphorus 2.9 mg/dL (2.5-4.5); Potassium 3.7 mmol/L (3.4-5.0); Sodium 127 mmol/L (137-145)
[2022-02-17 05:20] LABS: Basophils Absolute Auto 0.1 K/mm3 (0.0-0.1); Basophils Percent Auto 0.5 % (0.2-1.2); Eosinophils Absolute Auto 0.1 K/mm3 (0-0.3); Eosinophils Percent Auto 0.8 % (0-4.4); Hematocrit 24.6 % (37.0-47.0); Hemoglobin 8.3 g/dL (12.0-15.0); Immature Granulocyte Absolute 0.06 K/mm3 (0.00-0.031); Immature Granulocyte Percent A 0.6 % (0-0.5); Lymphocytes Absolute Auto 0.74 K/mm3 (0.9-3.2); Lymphocytes Percent Auto 7.5 % (18.3-44.2); Mean Corpuscular HGB Conc 33.7 g/dl (32-36); Mean Corpuscular Volume 88.8 fl (80-100); Mean Platelet Volume 9.9 fl (7.4-10.4); Monocytes Absolute Auto 1.1 K/mm3 (0.1-0.6); Monocytes Percent Auto 10.7 % (2.6-8.5); Neutrophils Absolute Auto 7.9 K/mm3 (1.3-6.7); Neutrophils Percent Auto 79.9 % (45.5-73.1); Platelet Count Result 332 k/mm3 (150-375); Red Blood Count 2.77 M/mm3 (4.2-5.4); Red Cell Distribution Width 13.2 % (11.5-14.5); White Blood Count 9.9 K/mm3 (4.5-10.0)
[2022-02-17] MEDS: SODIUM CHLORIDE 0.9% IV 1,000 ML 100 ML IV CONT (05:40)
--- NOTE | 2022-02-17 07:11 | WPDGIPROGNO ---
Progress Note: A&P Assessment and Plan (1) Hematemesis: Code(s): K92.0 - Hematemesis Status: Acute Assessment and Plan: Her blood pressure was low, 70 systolic briefly when I saw her in the emergency room. She is also pale and obviously has lost a significant amount of blood. No hemorrhage since she got to the hospital. The plan is to perform an EGD today. I did Explain that she may have an ulcer or possibly varices given the fact that she does have a portal vein thrombosis 02/16/2022 no further emesis and no evidence of active bleeding. Hemoglobin is stable at 7.2. I told her that there is a risk of rebleeding, particularly the 1st 48 hours and therefore we will slowly advance her diet with hopes that she can be discharged tomorrow. 02/17/2022 her blood counts are stable. She could be discharged today on pantoprazole 40 mg b.i.d.. Will repeat EGD in 6 weeks. (2) Elevated LFTs: Code(s): R79.89 - Other specified abnormal findings of blood chemistry Status: Acute Assessment and Plan: last week these were significantly elevated suggesting choledocholithiasis. Because they have come down and are now normalized she probably passed a common duct stone. The plan is for her to eventually have an outpatient cholecystectomy. (3) Gastric bypass status for obesity: Code(s): Z98.84 - Bariatric surgery status Status: Acute Assessment and Plan: Because of the Abigail-en-Y procedure she is not a candidate for ERCP. He she has however at more risk for it jejunal or anastomotic ulcer. (4) CONTRERAS (nonalcoholic steatohepatitis): Code(s): K75.81 - Nonalcoholic steatohepatitis (CONTRERAS) Status: Acute Assessment and Plan: CT scan does not show any evidence of cirrhosis. Fortunately, varices were not seen on endoscopy. (5) Portal vein thrombosis: Code(s): I81 - Portal vein thrombosis Status: Acute Assessment and Plan: she does not have any history of liver disease or cirrhosis. She happens to be on carvedilol 12.5 mg b.i.d. which would be an appropriate dose to treat portal hypertension but I do not think that she has ever been found to have varices. She is fairly certain she has not had an EGD. (6) ICD (implantable cardioverter-defibrillator) in place: Code(s): Z95.810 - Presence of automatic (implantable) cardiac defibrillator Status: Acute Assessment and Plan: Because of this a magnet may be necessary if we are going to apply cautery for GI bleed (7) Anemia due to blood loss: Code(s): D50.0 - Iron deficiency anemia secondary to blood loss (chronic) Status: Acute Assessment and Plan: Hemoglobin dropped to a low of 7.2 and has remained there for the past 3 samples. If any lower, she would likely need transfusion. 02/17/2022. Blood counts dropped yesterday below 7 requiring transfusion. Hemoglobin is stable now. No evidence of bleeding. Plan She will be going back to [place]. I will perform EGD for follow-up in 6-8 weeks. Subjective Date/time seen: 02/17/22 07:11 She has no complaints this morning. Denies abdominal pain. She states that she still has not had a bowel movement. Her hemorrhoids are bothering her a bit. Tolerating full liquid diet. Blood counts are stable after the transfusion of 1 unit yesterday. Exam Const: General: alert and obese Nutritional Appearance: obese Orientation/consciousness: patient oriented x3 Resp: Auscultation: clear to auscultation bilaterally Cardio: Rhythm: regular rhythm GI: Auscultation: normal bowel sounds Neuro: General: patient oriented x3 Objective Data Vital Signs Vital Signs: Vital Signs - 24 hr 02/16/22 08:04 02/16/22 08:23 02/16/22 08:00 Temperature 35.8 C L Pulse Rate 64 67 69 Respiratory Rate 20 20 Blood Pressure 103/49 L Pulse Oximetry 97 100 Oxygen Delivery Room Air 02/16/22 11:55 02/16/22 11:59 02/16/22 1
[2022-02-17 07:53] LABS: Glucose Point of Care 112 mg/dl (65-105)
[2022-02-17] MEDS: AMOXICILLIN/CLAVULANATE K 875-125 MG TAB 1 TABLET PO ×2 (08:24→20:57)
[2022-02-17] MEDS: PANTOPRAZOLE SODIUM IV 40 MG VIAL IV PUSH ×2 (08:24→20:54)
[2022-02-17] MEDS: MULTIVITAMINS THERAPEUTIC TAB (*BKC) 1 TABLET PO (08:24)
[2022-02-17] MEDS: ROSUVASTATIN 10 MG TABLET 20 MG PO (08:24)
[2022-02-17 11:33] LABS: Glucose Point of Care 133 mg/dl (65-105)
[2022-02-17] MEDS: INSULIN GLARGINE (*BKC) 100 UNITS/ML 35 UNITS SUB-Q (12:33)
--- NOTE | 2022-02-17 12:43 | P.CDI_ITS ---
CDI Query Clarified Diagnosis Clarified Diagnosis: Documented history of CHF. CHF noted under assessment and plan. Patient on Lasix at home and as an inpatient. Please specify type and acuity of heart failure if known. * Acute * Chronic * Acute on Chronic * Unknown * Systolic * Diastolic * Combined Systolic and Diastolic * Unknown
--- NOTE | 2022-02-17 12:43 | WPDCDIQUERY2 ---
CDI Query Clarified Diagnosis Clarified Diagnosis: Documented history of CHF. CHF noted under assessment and plan. Patient on Lasix at home and as an inpatient. Please specify type and acuity of heart failure if known. Acute Chronic Acute on Chronic Unknown Systolic Diastolic Combined Systolic and Diastolic Unknown
--- NOTE | 2022-02-17 14:44 | PM.IMPN ---
Progress Note: A&P Assessment and Plan (1) AMS (altered mental status): Code(s): R41.82 - Altered mental status, unspecified Status: Acute Assessment and Plan: Patient alert and oriented but distant and not at her cognitive baseline. TSH okay. Check ABG. Check B12, folate and ammonia level. Repeat UA. Check CT brain (2) GI bleed: Code(s): K92.2 - Gastrointestinal hemorrhage, unspecified Status: Acute Assessment and Plan: Patient presents with acute onset hematemesis. EGD showing reflux esophagitis and gastric ulcer. There was a visible vessel in the ulcer which was treated. Most likely this is etiology of her upper GI bleed. Continue Protonix. Hemoglobin was 8.3 this morning and stable. Blood pressure improved. Appreciate GI input. Continue to follow H&H (3) Hypotension: Code(s): I95.9 - Hypotension, unspecified Status: Acute Assessment and Plan: Patient noted to be hypotensive. Most likely related to hypovolemia. Her antihypertensive medications remain on hold including Lasix. Transfusions was ordered with benefit. Will stop IV fluids. She does have a history of CHF. Continue serial H&H (4) Gastric ulcer: Code(s): K25.9 - Gastric ulcer, unspecified as acute or chronic, without hemorrhage or perforation Status: Acute Assessment and Plan: As above. (5) Reflux esophagitis: Code(s): K21.00 - Gastro-esophageal reflux disease with esophagitis, without bleeding Status: Acute Assessment and Plan: As above. (6) CHF (congestive heart failure): Code(s): I50.9 - Heart failure, unspecified Status: Acute Assessment and Plan: Patient with hx of CHF. Echo 02/04/22 showing EF 35-40%, moderate hypokinesis, Grade I diastolic dysfunction. Lasix, COreg, Losartan and Imdur on hold for HoTN. BP better so will begin to resume some home meds. Monitor closely in IMU (7) Acute UTI: Code(s): N39.0 - Urinary tract infection, site not specified Status: Acute Assessment and Plan: Given the altered mental status, will repeat UA and UCx (8) CKD (chronic kidney disease): Qualifiers: Chronic kidney disease stage: unspecified stage Qualified Code(s): N18.9 - Chronic kidney disease, unspecified Code(s): N18.9 - Chronic kidney disease, unspecified Status: Acute Assessment and Plan: Baseline Cr 1.2 range. Cr at baseline. Monitor closely. Avoid nephrotoxic medication. 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 The patient's blood glucose was reviewed on 02/17 Glucose stable. Continue AccuCheks covering with sliding scale. Hypoglycemia protocol available as needed. Continue lower dose lantus dosing. (10) Hypertension: Qualifiers: Hypertension type: essential hypertension Qualified Code(s): I10 - Essential (primary) hypertension Code(s): I10 - Essential (primary) hypertension Status: Chronic Assessment and Plan: As above. (11) CONTRERAS (nonalcoholic steatohepatitis): Code(s): K75.81 - Nonalcoholic steatohepatitis (CONTRERAS) Status: Acute Assessment and Plan: LFTs noted. Appreciate GI input. 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 Continue home CPAP. Encourage compliance. Check ABG (13) Portal vein thrombosis: Code(
[2022-02-17 15:21] LABS: Ammonia < 9 umol/L (9-30)
[2022-02-17 15:32] LABS: Alveolar/Arterial O2 Gradient 42.5 mmHg; Base Excess ABG 1.3 mEq/l (+/-2.0); Device ROOM AIR; Fractional Inspired Oxygen 21 %; HCO3 ABG 24.3 mEq/l (22.0-26.0); Modified Allen's Test Pass; Oxygen Content ABG 13.3 %vol (16.0-22.0); Oxygen Saturation ABG 95.1 % (95.0-100.0); Oxyhemoglobin 92.9 % THb (90.0-100.0); PCO2 ABG 32.6 mmHg (35.0-45.0); PO2 ABG 68.2 mmHg (80.0-100.0); PO2 FiO2 Ratio Arterial Blood 3.25 %; Site Drawn LEFT RADIAL; Total Hemoglobin 10.1 g/dL (12.0-18.0)
--- NOTE | 2022-02-17 16:01 | PCOTNOTE ---
Attempted to see pt. Pt. refused to participate at this time. Nursing updated.
[2022-02-17 16:06] LABS: Appearance Urine Cloudy (Clear); Bilirubin Urine Negative (Negative); Blood Urine 1+ (Negative); Color Urine Yellow (Yellow); Glucose Urine UA Negative (Negative); Ketones Urine Negative (Negative); Leukocyte Esterase Ur 3+ LEU/UL (Negative); Nitrate Urine Negative (Negative); Protein Urine 1+ mg/dL (Negative); Specific Grav Ur 1.015 (1.001-1.035); Urobilinogen Urine 0.2 mg/dL (<2.0); pH Urine 6.5 (5.0-9.0)
[2022-02-17 16:11] LABS: Bacteria Urine Trace /hpf; WBC Urine >75 /hpf
[2022-02-17 16:12] LABS: Add Urine Microscopic? YES
[2022-02-17 18:49] LABS: Folic Acid 13.1 ng/mL (2.76->20)
[2022-02-17 19:02] LABS: Glucose Point of Care 99 mg/dl (65-105)
[2022-02-17] MEDS: carvediloL 12.5 MG TABLET PO (20:53)
[2022-02-17] MEDS: PARoxetine 20 MG TABLET 40 MG PO (20:54)
[2022-02-17 21:55] LABS: Glucose Point of Care 74 mg/dl (65-105)
[2022-02-18] VITALS (18 sets, daily range): BP systolic 123–145; BP diastolic 44–53; PULSE 56–76; RESP 16–24; TEMP 36.4–37.4; O2SAT 95–97
[2022-02-18 04:57] LABS: Anion Gap 12 mmol/L (8-16); Blood Urea Nitrogen 15 mg/dL (7-17); Calcium 7.9 mg/dL (8.4-10.2); Carbon Dioxide 21 mmol/L (22-30); Chloride 97 mmol/L (98-107); Estimated CRCL calculation 40 ml/min; Estimated Glomerular Filt Rate 48; Glucose 127 mg/dL (65-110); Potassium 4.4 mmol/L (3.4-5.0); Sodium 130 mmol/L (137-145)
[2022-02-18 05:45] LABS: Hematocrit 27.5 % (37.0-47.0); Hemoglobin 9.1 g/dL (12.0-15.0); Mean Corpuscular HGB Conc 33.1 g/dl (32-36); Mean Corpuscular Hemoglobin 30.5 pg (26-34); Mean Corpuscular Volume 92.3 fl (80-100); Mean Platelet Volume 9.7 fl (7.4-10.4); Platelet Count Result 318 k/mm3 (150-375); Red Blood Count 2.98 M/mm3 (4.2-5.4); Red Cell Distribution Width 13.2 % (11.5-14.5); White Blood Count 7.4 K/mm3 (4.5-10.0)
[2022-02-18 08:01] LABS: Glucose Point of Care 106 mg/dl (65-105)
--- NOTE | 2022-02-18 08:31 | PCOTNOTE ---
Attempted to see pt. Pt. refused to participate at this time. Nursing updated.
--- NOTE | 2022-02-18 08:42 | PCPTNOTE ---
Attempted physical therapy initial evaluation, pt refused at this time. Attempted to turn on lights and help pt sit up for breakfast and she also refused this. Nursing updated. Will continue to follow.
[2022-02-18] MEDS: PANTOPRAZOLE SODIUM IV 40 MG VIAL IV PUSH ×2 (08:44→20:47)
[2022-02-18] MEDS: AMOXICILLIN/CLAVULANATE K 875-125 MG TAB 1 TABLET PO (08:44)
[2022-02-18] MEDS: MULTIVITAMINS THERAPEUTIC TAB (*BKC) 1 TABLET PO (08:45)
[2022-02-18] MEDS: carvediloL 12.5 MG TABLET PO ×2 (08:45→20:46)
[2022-02-18] MEDS: ROSUVASTATIN 10 MG TABLET 20 MG PO (08:45)
[2022-02-18 11:36] LABS: Glucose Point of Care 116 mg/dl (65-105)
[2022-02-18] MEDS: INSULIN GLARGINE (*BKC) 100 UNITS/ML 25 UNITS SUB-Q (13:36)
--- NOTE | 2022-02-18 15:42 | PM.IMPN ---
Progress Note: A&P Assessment and Plan (1) AMS (altered mental status): Code(s): R41.82 - Altered mental status, unspecified Status: Acute Assessment and Plan: Patient awake but not at her cognitive baseline. TSH, B12, folate normal. Ammonia level negative. No hypercapnia. Repeat UA noted and UCx pending. CT brain showing no acute findings. She is on her Paxil. Consider psych etiology. Consider related to HoTN (BP 71/47 on 02/15). Ambien given 02/16 but not since. Stop Ambien. no MRI since she has PM. Check CXR. Will stop abx to see if she manifests symptoms of infection. Neuro checks. neurology consult. (2) GI bleed: Code(s): K92.2 - Gastrointestinal hemorrhage, unspecified Status: Acute Assessment and Plan: Patient presents with acute onset hematemesis. EGD showing reflux esophagitis and gastric ulcer. There was a visible vessel in the ulcer which was treated. Most likely this is etiology of her upper GI bleed. Appreciate GI input. (3) Acute blood loss anemia: Code(s): D62 - Acute posthemorrhagic anemia Status: Acute Assessment and Plan: Hemoglobin was 8.6 on admission. Normal baseline Hgb but she was recently hospitalized earlier this month for UTI and AMS and Hgb was 10.2 at time of discharge. Hgb followed serially and dropped to 6.8 on 02/16 associated with HoTN. Fluid bolus given and transfusion ordered. She received 1U PRBC and Hgb has climbed to the 8-9 range and stable. BP improved. Appreciate GI input. Continue to follow H&H. (4) Hypotension: Code(s): I95.9 - Hypotension, unspecified Status: Acute Assessment and Plan: Patient noted to be hypotensive on admission (02/15) and again on 02/16 with low Hgb. Most likely related to hypovolemia. Her antihypertensive medications were held including Lasix. Her BP did improve initially but she was transfused on 02/16 for the low Hgb. Hgb remaining stable. Fluids stopped and BP remained stable. Able to add back Coreg and she is toelrating this. Continue to monitor. (5) Gastric ulcer: Code(s): K25.9 - Gastric ulcer, unspecified as acute or chronic, without hemorrhage or perforation Status: Acute Assessment and Plan: As above. (6) Reflux esophagitis: Code(s): K21.00 - Gastro-esophageal reflux disease with esophagitis, without bleeding Status: Acute Assessment and Plan: As above. (7) CHF (congestive heart failure): Code(s): I50.9 - Heart failure, unspecified Status: Acute Assessment and Plan: Patient with hx of CHF. Echo 02/04/22 showing EF 35-40%, moderate hypokinesis, Grade I diastolic dysfunction. Lasix, Losartan and Imdur remain on hold for HoTN but able to resume Coreg. Monitor closely in IMU (8) Acute UTI: Code(s): N39.0 - Urinary tract infection, site not specified Status: Acute Assessment and Plan: As above. UA noted. Stop abx. (9) CKD (chronic kidney disease): Qualifiers: Chronic kidney disease stage: unspecified stage Qualified Code(s): N18.9 - Chronic kidney disease, unspecified Code(s): N18.9 - Chronic kidney disease, unspecified Status: Acute Assessment and Plan: Baseline Cr 1.2 range. Cr at baseline. Monitor closely. Avoid nephrotoxic medication. 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 The patient's blood glucose was reviewed on 02/18 Glucose low normal. Continue AccuCh
[2022-02-18 17:01] LABS: Glucose Point of Care 166 mg/dl (65-105)
[2022-02-18 20:21] LABS: Glucose Point of Care 132 mg/dl (65-105)
[2022-02-18] MEDS: PARoxetine 20 MG TABLET 40 MG PO (20:45)
[2022-02-19] VITALS (16 sets, daily range): BP systolic 104–137; BP diastolic 34–54; PULSE 64–76; RESP 16–24; TEMP 36.3–36.7; O2SAT 96–99
[2022-02-19 04:32] LABS: Basophils Percent Auto 0.7 % (0.2-1.2); Eosinophils Absolute Auto 0.2 K/mm3 (0-0.3); Eosinophils Percent Auto 2.6 % (0-4.4); Hematocrit 26.5 % (37.0-47.0); Hemoglobin 8.9 g/dL (12.0-15.0); Immature Granulocyte Absolute 0.05 K/mm3 (0.00-0.031); Immature Granulocyte Percent A 0.9 % (0-0.5); Lymphocytes Absolute Auto 0.56 K/mm3 (0.9-3.2); Lymphocytes Percent Auto 9.6 % (18.3-44.2); Mean Corpuscular HGB Conc 33.6 g/dl (32-36); Mean Corpuscular Hemoglobin 30.6 pg (26-34); Mean Corpuscular Volume 91.1 fl (80-100); Mean Platelet Volume 9.1 fl (7.4-10.4); Monocytes Absolute Auto 0.6 K/mm3 (0.1-0.6); Monocytes Percent Auto 10.7 % (2.6-8.5); Neutrophils Absolute Auto 4.4 K/mm3 (1.3-6.7); Neutrophils Percent Auto 75.5 % (45.5-73.1); Platelet Count Result 247 k/mm3 (150-375); Red Blood Count 2.91 M/mm3 (4.2-5.4); Red Cell Distribution Width 13.2 % (11.5-14.5); White Blood Count 5.8 K/mm3 (4.5-10.0)
[2022-02-19 04:47] LABS: Alanine Aminotransferase 28 U/L (6-35); Albumin Level 2.9 g/dL (3.5-5.1); Alkaline Phosphatase 77 U/L (38-126); Anion Gap 8 mmol/L (8-16); Aspartate Amino Transferase 41 U/L (14-36); Bilirubin,Total 1.3 mg/dL (0.2-1.3); Blood Urea Nitrogen 17 mg/dL (7-17); CRP 6.1 mg/dL (<1.0); Calcium 7.6 mg/dL (8.4-10.2); Carbon Dioxide 21 mmol/L (22-30); Chloride 95 mmol/L (98-107); Estimated CRCL calculation 37 ml/min; Estimated Glomerular Filt Rate 43; Glucose 128 mg/dL (65-110); Magnesium 1.9 mg/dL (1.6-2.3); Phosphorus 3.5 mg/dL (2.5-4.5); Sodium 124 mmol/L (137-145)
[2022-02-19 08:08] LABS: Glucose Point of Care 126 mg/dl (65-105)
[2022-02-19] MEDS: carvediloL 12.5 MG TABLET PO (09:18)
[2022-02-19] MEDS: MULTIVITAMINS THERAPEUTIC TAB (*BKC) 1 TABLET PO (09:19)
[2022-02-19] MEDS: PANTOPRAZOLE 40 MG TABLET PO ×2 (09:19→21:51)
[2022-02-19] MEDS: ROSUVASTATIN 10 MG TABLET 20 MG PO (09:19)
--- NOTE | 2022-02-19 09:52 | PCPTNOTE ---
attempted PT eval at 950- pt was out of her room for testing;
--- NOTE | 2022-02-19 10:20 | WPDNEURCNPN ---
Assessment and Plan Assessment and plan (1) AMS (altered mental status): Code(s): R41.82 - Altered mental status, unspecified Status: Acute (2) Acute blood loss anemia: Code(s): D62 - Acute posthemorrhagic anemia Status: Acute (3) Hypotension: Code(s): I95.9 - Hypotension, unspecified Status: Acute (4) GI bleed: Code(s): K92.2 - Gastrointestinal hemorrhage, unspecified Status: Acute (5) IDDM (insulin dependent diabetes mellitus): Status: Acute (6) Acute UTI: Code(s): N39.0 - Urinary tract infection, site not specified Status: Acute Plan Lidia Ortega is a 81 year old female with a history of gastric bypass, heart failure, CKD, diabetes, chronic diplopia, HTN, HLD, CONTRERAS, and SARAH who presented with bloody emesis complicated by anemia and hypotension, no with concerns for altered mentation. Watershed stroke is a possibility given significant hypotension on presentation. Metabolic/infectious encephalopathy is still as possibility, especially considering patient's many comorbidities. There have not been any reports of seizure like activity. - Check TSH and thiamine level - Patient has AICD as listed in her chart, unsure if this MRI compatible, but if it is, recommend MRI brain w/wo contrast - Consider routine EEG +/- lumbar puncture Consult date: 02/19/22 Time Seen: 10:21 Reason for consult: Altered mental status HPI: Lidia Ortega is a 81 year old female with a history of gastric bypass, heart failure, CKD, diabetes, chronic diplopia, HTN, HLD, CONTRERAS, and SARAH who presented with bloody emesis on 02/15. She presented to the emergency department quite ill appearing with BP in the 70s systolic. Her hgb was intially 8.6 but dropped to 7.9 and eventually 6.8 on 02/16 for which she required transfusion. Her UA was concerning for UTI so she was started on anbiotics. Her mental status was noted to be AOx3 on 02/17, but since then there have been reports of altered mentation, patient not answering questions and appearing distant . She had a CT head which was negative for acute process. UA was rechecked and was unremarkable, as was repeat urine culture. B12, ammonia and folate levels were appropriate as well. Most recent TSH is from May 2021, and was normal at the time. Patient was not able to provide history this morning due to her mental status. Review of Systems Review of Systems: ROS unobtainable: Yes unobtainable due to mental status PMFSH Past Medical History Medical History (HFpEF) heart failure with preserved ejection fraction Anxiety Arthritis Bacteremia BPPV (benign paroxysmal positional vertigo) CAD (coronary artery disease) CHF (congestive heart failure) CKD (chronic kidney disease) Closed fracture of right humerus Constipation COVID COVID-19 Depression Diabetes Diplopia Dizziness Eczema Elevated troponin Gallstone pancreatitis Gout Hyperlipidemia Hypertension ICD (implantable cardioverter-defibrillator) in place Insomnia Left leg swelling CONTRERAS (nonalcoholic steatohepatitis) Neuropathy NSTEMI (non-ST elevated myocardial infarction) Organic sleep apnea Osteoarthritis Seasonal allergies Sleep apnea Sleep disorder Transaminitis Type 2 diabetes mellitus Urinary frequency Vision abnormalities Vitamin D deficiency Weight gain Weight loss Surgical History Surgical History Gastric bypass status for obesity H/O: hysterectomy History of carpal tunnel repair History of ventral hernia repair Post-op changes noted on CT Hx of gastric bypass Hx of heart artery stent Family History Family History Father Heart disease Mother Heart disease Sibling Heart disease Father Acute myocardial infarction Patient's father is Mother Acute myocardial infarction Family history of
[2022-02-19 11:53] LABS: Glucose Point of Care 228 mg/dl (65-105)
[2022-02-19 11:59] LABS: Sodium 123 mmol/L (137-145)
[2022-02-19] MEDS: INSULIN GLARGINE (*BKC) 100 UNITS/ML 25 UNITS SUB-Q (12:58)
[2022-02-19] MEDS: INSULIN ASPART (*BKC) 100 UNITS/ML SUB-Q ×2 (12:59→16:41)
--- NOTE | 2022-02-19 13:39 | PM.IMPN ---
Progress Note: A&P Assessment and Plan (1) AMS (altered mental status): Code(s): R41.82 - Altered mental status, unspecified Status: Acute Assessment and Plan: Patient alerted and not at her cognitive baseline. TSH, B12, folate normal. Ammonia level negative. No hypercapnia. Repeat UA noted and UCx negative. CT brain showing no acute findings. Consider related to HoTN (BP 71/47 on 02/15). Ambien given 02/16 and has since been stopped. No MRI since she has PM. CXR showing left lower lobe airspace disease. Abx stopped. Continue Neuro checks. Neurology consult. No ASA given due to recent GI bleed. PM interrogation. CXR noted - monitor for s/sx of PNA. Speech to see. Contineu PT/OT (2) GI bleed: Code(s): K92.2 - Gastrointestinal hemorrhage, unspecified Status: Acute Assessment and Plan: Patient presents with acute onset hematemesis. EGD showing reflux esophagitis and gastric ulcer. There was a visible vessel in the ulcer which was treated. Most likely this is etiology of her upper GI bleed. Appreciate GI input. Continue Protonix. (3) Hyponatremia: Code(s): E87.1 - Hypo-osmolality and hyponatremia Status: Acute Assessment and Plan: Patient has chronic mild hyponatremia. Na 129 on admission but improved to 135. Na up and down but was 130 yesterday and now 124 today. Probably related to dehydration due to poor oral intake. Check serial Na. Hold Paxil. Urine studies ordered. Start low dose fluids. (4) Acute blood loss anemia: Code(s): D62 - Acute posthemorrhagic anemia Status: Acute Assessment and Plan: Hemoglobin was 8.6 on admission. Normal baseline Hgb but she was recently hospitalized earlier this month for UTI and AMS and Hgb was 10.2 at time of discharge. Hgb followed serially and dropped to 6.8 on 02/16 associated with HoTN. Fluid bolus given and transfusion ordered. She received 1U PRBC and Hgb has climbed to the 8-9 range and stable. BP improved. Appreciate GI input. Continue to follow H&H. (5) Hypotension: Code(s): I95.9 - Hypotension, unspecified Status: Acute Assessment and Plan: Patient noted to be hypotensive on admission (02/15) and again on 02/16 with low Hgb. Most likely related to hypovolemia. Her antihypertensive medications were held including Lasix. Her BP did improve initially but she was transfused on 02/16 for the low Hgb. Hgb remaining stable. Fluids stopped and BP remained stable. Added back Coreg but BP soft so will hold this for now. Continue to monitor. (6) Gastric ulcer: Code(s): K25.9 - Gastric ulcer, unspecified as acute or chronic, without hemorrhage or perforation Status: Acute Assessment and Plan: As above. (7) Reflux esophagitis: Code(s): K21.00 - Gastro-esophageal reflux disease with esophagitis, without bleeding Status: Acute Assessment and Plan: As above. (8) CHF (congestive heart failure): Code(s): I50.9 - Heart failure, unspecified Status: Acute Assessment and Plan: Patient with hx of CHF. Echo 02/04/22 showing EF 35-40%, moderate hypokinesis, Grade I diastolic dysfunction. Lasix, Losartan and Imdur remain on hold for HoTN but able to resume Coreg. Monitor closely in IMU (9) Acute UTI: Code(s): N39.0 - Urinary tract infection, site not specified Status: Acute Assessment and Plan: As above. UCx and BCx negative. Abx stopped. (10) CKD (chronic kidney disease): Qualifiers: Chronic kidney disease stage: unspecified stage Qualified Code(s): N18.9 - Chronic kidney disease, unspecified Code(s): N18.9 - Chronic kidney disease, unspecified Status: Acute Assessment and Plan: Baseline Cr 1.2 range. Cr at baseline. Monitor closely. Avoid nephrotoxic medication. (11) Diabetes mellitus with neurological manifestation: Qualifiers: Diabetes mellitus type: type
--- NOTE | 2022-02-19 15:09 | PCNFU ---
Nutrition Follow-Up Complete: Suboptimal po intake related to altered GI function and diet order as evidenced by diagnosis and clear liquid status. Goal: PO intake 75% of meals and supplements - Not meeting goal Pt current nutrition is Heart healthy, diabetic consistent carb diet. Intakes 0-50%. Nutrition recommendation: Continue current diet order and supplements Last recorded weight is 92 kg. Bowel Motility: +1 BM 11.24.22 Labs Reviewed: Hgb 8.9, Hct 26.5, Alb 2.9, Na 123, Creat 1.2, Glu 228 Meds Noted: Lasix, novolog, lantus, lasix, protonix Skin: WNL Additional Notes: Notes state pt was found to have reflux esophagitis and gastric ulcer which may be contributing to poor appetite. Monitor diet order, intake, tolerance, wt, labs. Follow up in 5 days.
[2022-02-19 16:28] LABS: Glucose Point of Care 239 mg/dl (65-105)
[2022-02-19] MEDS: SODIUM CHLORIDE 0.9% IV 1,000 ML 70 ML IV CONT (16:41)
[2022-02-19 18:31] LABS: Sodium 124 mmol/L (137-145)
[2022-02-19 19:06] LABS: Creatinine Urine 45.1 mg/dL
[2022-02-19 19:11] LABS: Sodium Urine Random 22 meq/L
[2022-02-19 20:21] LABS: Glucose Point of Care 164 mg/dl (65-105)
[2022-02-20] VITALS (17 sets, daily range): BP systolic 95–116; BP diastolic 34–56; PULSE 61–78; RESP 18–22; TEMP 35.6–36.5; O2SAT 94–98
[2022-02-20 05:02] LABS: Anion Gap 11 mmol/L (8-16); Blood Urea Nitrogen 23 mg/dL (7-17); Calcium 6.8 mg/dL (8.4-10.2); Carbon Dioxide 19 mmol/L (22-30); Chloride 96 mmol/L (98-107); Estimated CRCL calculation 40 ml/min; Estimated Glomerular Filt Rate 48; Glucose 209 mg/dL (65-110); Potassium 3.9 mmol/L (3.4-5.0); Sodium 126 mmol/L (137-145)
[2022-02-20] MEDS: SODIUM CHLORIDE 0.9% IV 1,000 ML 70 ML IV CONT ×2 (06:06→20:27)
[2022-02-20 08:07] LABS: Glucose Point of Care 174 mg/dl (65-105)
[2022-02-20] MEDS: MULTIVITAMINS THERAPEUTIC TAB (*BKC) 1 TABLET PO (09:08)
[2022-02-20] MEDS: ROSUVASTATIN 10 MG TABLET 20 MG PO (09:08)
[2022-02-20] MEDS: PANTOPRAZOLE 40 MG TABLET PO ×2 (09:09→20:26)
[2022-02-20] MEDS: SODIUM CHLORIDE 1 GM TABLET PO ×2 (10:07→17:44)
[2022-02-20 10:10] LABS: Alveolar/Arterial O2 Gradient 29.4 mmHg; Base Excess ABG -2.1 mEq/l (+/-2.0); Fractional Inspired Oxygen 21 %; Oxygen Content ABG 12.1 %vol (16.0-22.0); Oxygen Saturation ABG 95.9 % (95.0-100.0); Oxyhemoglobin 93.9 % THb (90.0-100.0); PCO2 ABG 34.8 mmHg (35.0-45.0); PO2 ABG 78.7 mmHg (80.0-100.0); PO2 FiO2 Ratio Arterial Blood 3.75 %; Total Hemoglobin 9.1 g/dL (12.0-18.0); pH ABG 7.418 (7.350-7.450)
[2022-02-20] MEDS: PHENYLEPH/SHARK OIL/MO/PETROL CREAM 26 GM 1 APPLIC RECTAL (10:14)
[2022-02-20 10:26] LABS: Device ROOM AIR; Modified Allen's Test Pass; Site Drawn LEFT RADIAL
[2022-02-20 11:59] LABS: Glucose Point of Care 298 mg/dl (65-105)
[2022-02-20 12:11] LABS: Sodium 126 mmol/L (137-145)
[2022-02-20] MEDS: INSULIN ASPART (*BKC) 100 UNITS/ML SUB-Q ×2 (12:37→17:43)
[2022-02-20] MEDS: INSULIN GLARGINE (*BKC) 100 UNITS/ML 25 UNITS SUB-Q (12:38)
[2022-02-20 12:47] LABS: Beta-Hydroxybutyrate/Acetoacetate 0.15 mmol/L (0.02-0.27)
--- NOTE | 2022-02-20 12:59 | PCSTNOTE ---
Patient seen for bedside swallowing evaluation. Patient was sitting upright in chair. Trials of thin liquids by straw and pureed consistency by spoon were given. Patient demonstrated strong laryngeal elevation. No signs of aspiration or pneumonia. No coughing or choking. Recommend minced moist diet (level 5) and thin liquids for this patient. No speech therapy recommended. Thank you for the referral of this patient.
[2022-02-20 16:26] LABS: Glucose Point of Care 248 mg/dl (65-105)
--- NOTE | 2022-02-20 16:54 | PM.IMPN ---
Progress Note: A&P Assessment and Plan (1) AMS (altered mental status): Code(s): R41.82 - Altered mental status, unspecified Status: Acute Assessment and Plan: Patient was alerted and not at her cognitive baseline. TSH, B12, folate normal. Ammonia level negative. No hypercapnia. Repeat UCx negative. CT brain showing no acute findings. Consider related to HoTN (BP 71/47 on 02/15). Ambien given 02/16 and has since been stopped. No MRI since she has PM. CXR showing left lower lobe airspace disease. Mental status better today. Neurology following and appreciate their input. No ASA given due to recent GI bleed. CXR noted - monitor for s/sx of PNA. Speech felt patietn could swallow safely and recommended minced/moist with thin liquids. Continue PT/OT. Continue Neuro checks. (2) GI bleed: Code(s): K92.2 - Gastrointestinal hemorrhage, unspecified Status: Acute Assessment and Plan: Patient presents with acute onset hematemesis. EGD showing reflux esophagitis and gastric ulcer. There was a visible vessel in the ulcer which was treated. Most likely this is etiology of her upper GI bleed. Appreciate GI input. Continue Protonix. (3) Hyponatremia: Code(s): E87.1 - Hypo-osmolality and hyponatremia Status: Acute Assessment and Plan: Patient has chronic mild hyponatremia. Na 129 on admission but improved to 135. Na up and down but was 124 yesterday and now 126 today. Probably related to dehydration due to poor oral intake. Paxil held (etilogy of improved mental status?). Urine Na 22 with FENa 0.4%. NaCl tabs started. Monitor Na levels. Continue IVF for now. (4) Acute blood loss anemia: Code(s): D62 - Acute posthemorrhagic anemia Status: Acute Assessment and Plan: Hemoglobin was 8.6 on admission. Normal baseline Hgb but she was recently hospitalized earlier this month for UTI and AMS and Hgb was 10.2 at time of discharge. Hgb followed serially and dropped to 6.8 on 02/16 associated with HoTN. Fluid bolus given and transfusion ordered. She received 1U PRBC and Hgb has climbed to the 8-9 range and stable. Appreciate GI input. Continue to follow H&H. (5) Hypotension: Code(s): I95.9 - Hypotension, unspecified Status: Acute Assessment and Plan: Patient noted to be hypotensive on admission (02/15) and again on 02/16 with low Hgb. Most likely related to hypovolemia. Her antihypertensive medications were held including Lasix. Her BP did improve initially but she was transfused on 02/16 for the low Hgb. Hgb remaining stable. BP remained stable but still soft. Coreg, Lasix, Imdur and Cozaar on hold. Continue to monitor. (6) Gastric ulcer: Code(s): K25.9 - Gastric ulcer, unspecified as acute or chronic, without hemorrhage or perforation Status: Acute Assessment and Plan: As above. (7) Reflux esophagitis: Code(s): K21.00 - Gastro-esophageal reflux disease with esophagitis, without bleeding Status: Acute Assessment and Plan: As above. (8) CHF (congestive heart failure): Code(s): I50.9 - Heart failure, unspecified Status: Acute Assessment and Plan: Patient with hx of CHF. Echo 02/04/22 showing EF 35-40%, moderate hypokinesis, Grade I diastolic dysfunction. Coreg, Lasix, Losartan and Imdur remain on hold for HoTN. Monitor closely (9) CKD (chronic kidney disease): Qualifiers: Chronic kidney disease stage: unspecified stage Qualified Code(s): N18.9 - Chronic kidney disease, unspecified Code(s): N18.9 - Chronic kidney disease, unspecified Status: Acute Assessment and Plan: Baseline Cr 1.2 range. Cr at baseline. Monitor closely. Avoid nephrotoxic medication. Serum bicarb low. ABG showing normal pH. BHO and lactic normal. Probably from ketosis despite fluids since not eating much. Follow. (10) Diabetes mellitus with neurological manifestation: Quali
[2022-02-20 19:00] LABS: Sodium 126 mmol/L (137-145)
[2022-02-20 20:24] LABS: Glucose Point of Care 313 mg/dl (65-105)
[2022-02-20] MEDS: ZOLPIDEM TARTRATE (*CRX) 5 MG TABLET PO (23:21)
[2022-02-21] VITALS (14 sets, daily range): BP systolic 108–132; BP diastolic 36–67; PULSE 63–78; RESP 18–20; TEMP 35.9–36.5; O2SAT 95–98
[2022-02-21 00:48] LABS: Sodium 128 mmol/L (137-145)
[2022-02-21 05:20] LABS: Hematocrit 23.3 % (37.0-47.0); Hemoglobin 7.7 g/dL (12.0-15.0); Mean Corpuscular Hemoglobin 29.6 pg (26-34); Mean Corpuscular Volume 89.6 fl (80-100); Mean Platelet Volume 10.1 fl (7.4-10.4); Platelet Count Result 207 k/mm3 (150-375); Red Cell Distribution Width 13.4 % (11.5-14.5); White Blood Count 5.3 K/mm3 (4.5-10.0)
[2022-02-21 05:29] LABS: Alanine Aminotransferase 34 U/L (6-35); Albumin Level 2.5 g/dL (3.5-5.1); Alkaline Phosphatase 77 U/L (38-126); Anion Gap 6 mmol/L (8-16); Aspartate Amino Transferase 40 U/L (14-36); Blood Urea Nitrogen 20 mg/dL (7-17); Calcium 7.3 mg/dL (8.4-10.2); Carbon Dioxide 22 mmol/L (22-30); Chloride 103 mmol/L (98-107); Estimated CRCL calculation 43 ml/min; Estimated Glomerular Filt Rate 53; Glucose 168 mg/dL (65-110); Magnesium 2.1 mg/dL (1.6-2.3); Potassium 3.8 mmol/L (3.4-5.0); Sodium 131 mmol/L (137-145)
[2022-02-21 08:05] LABS: Glucose Point of Care 175 mg/dl (65-105)
[2022-02-21] MEDS: MULTIVITAMINS THERAPEUTIC TAB (*BKC) 1 TABLET PO (09:08)
[2022-02-21] MEDS: ROSUVASTATIN 10 MG TABLET 20 MG PO (09:08)
[2022-02-21] MEDS: SODIUM CHLORIDE 1 GM TABLET PO ×2 (09:08→17:59)
[2022-02-21] MEDS: PANTOPRAZOLE 40 MG TABLET PO ×2 (09:08→19:59)
[2022-02-21 11:51] LABS: Hematocrit 24.6 % (37.0-47.0); Hemoglobin 7.8 g/dL (12.0-15.0)
[2022-02-21 12:11] LABS: Glucose Point of Care 323 mg/dl (65-105)
[2022-02-21] MEDS: INSULIN GLARGINE (*BKC) 100 UNITS/ML 25 UNITS SUB-Q (12:54)
[2022-02-21] MEDS: INSULIN ASPART (*BKC) 100 UNITS/ML SUB-Q ×3 (12:54→20:51)
--- NOTE | 2022-02-21 14:33 | PCPTNOTE ---
Attempted to see patient this afternoon. The pt refused, stating that she was too tired to do anything today. Will continue per PT plan of care.
[2022-02-21 16:29] LABS: Glucose Point of Care 297 mg/dl (65-105)
--- NOTE | 2022-02-21 16:46 | PM.IMPN ---
Progress Note: A&P Assessment and Plan (1) AMS (altered mental status): Code(s): R41.82 - Altered mental status, unspecified Status: Acute Assessment and Plan: Patient was altered and not at her cognitive baseline. TSH, B12, folate normal. Ammonia level negative. No hypercapnia. Repeat UCx negative. CT brain showing no acute findings. Consider related to HoTN (BP 71/47 on 02/15). Ambien given 02/16 once but stopped due to AMS (Ambien resumed last night by cross cover- will stop again). No MRI since she has PM. CXR showing left lower lobe airspace disease. Neurology following and appreciate their input. No ASA given due to recent GI bleed. CXR noted - monitor for s/sx of PNA. Speech felt patient could swallow safely and recommended minced/moist with thin liquids. Mental status improving. Continue PT/OT. Continue Neuro checks. (2) GI bleed: Code(s): K92.2 - Gastrointestinal hemorrhage, unspecified Status: Acute Assessment and Plan: Patient presents with acute onset hematemesis. EGD showing reflux esophagitis and gastric ulcer. There was a visible vessel in the ulcer which was treated. Most likely this is etiology of her upper GI bleed. Appreciate GI input. Continue Protonix. (3) Hyponatremia: Code(s): E87.1 - Hypo-osmolality and hyponatremia Status: Acute Assessment and Plan: Patient has chronic mild hyponatremia. Na 129 on admission but improved to 135. Urine Na 22 with FENa 0.4%. Na up and down but was down to 123. This has slowly improved to 131 today. Probably related to dehydration due to poor oral intake. Paxil held (etiology of improved mental status?). NaCl tabs started. Monitor Na levels. Stop IVF for now. (4) Acute blood loss anemia: Code(s): D62 - Acute posthemorrhagic anemia Status: Acute Assessment and Plan: Hemoglobin was 8.6 on admission. Normal baseline Hgb but she was recently hospitalized earlier this month for UTI and AMS and Hgb was 10.2 at time of discharge. Hgb followed serially and dropped to 6.8 on 02/16 associated with HoTN. Fluid bolus given and transfusion ordered. She received 1U PRBC and Hgb has climbed to the 8-9 range. hgb dropped to 7.7 felt related to IV fluids and not recurrent bleeding. Repeat HH stable. Appreciate GI input. Continue to follow H&H. (5) Hypotension: Code(s): I95.9 - Hypotension, unspecified Status: Acute Assessment and Plan: Patient noted to be hypotensive on admission (02/15) and again on 02/16 with low Hgb. Most likely related to hypovolemia. Her antihypertensive medications were held including Lasix. Her BP dropped again related to low Hgb and she was transfused on 02/16. BP remained stable but still soft at times. Coreg, Lasix, Imdur and Cozaar remain on hold. Continue to monitor. (6) Gastric ulcer: Code(s): K25.9 - Gastric ulcer, unspecified as acute or chronic, without hemorrhage or perforation Status: Acute Assessment and Plan: As above. (7) Reflux esophagitis: Code(s): K21.00 - Gastro-esophageal reflux disease with esophagitis, without bleeding Status: Acute Assessment and Plan: As above. (8) CHF (congestive heart failure): Code(s): I50.9 - Heart failure, unspecified Status: Acute Assessment and Plan: Patient with hx of CHF. Echo 02/04/22 showing EF 35-40%, moderate hypokinesis, Grade I diastolic dysfunction. Coreg, Lasix, Losartan and Imdur remain on hold for HoTN. Monitor closely (9) CKD (chronic kidney disease): Qualifiers: Chronic kidney disease stage: unspecified stage Qualified Code(s): N18.9 - Chronic kidney disease, unspecified Code(s): N18.9 - Chronic kidney disease, unspecified Status: Acute Assessment and Plan: Baseline Cr 1.2 range. Cr at baseline. Monitor closely. Avoid nephrotoxic medication. Serum bicarb was low but better now. Probably from ketosis sinc
[2022-02-21 20:37] LABS: Glucose Point of Care 355 mg/dl (65-105)
--- NOTE | 2022-02-21 20:52 | PC.NURSE ---
This patient, Lidia Ortega, was transferred to [facility] on 02/21/22 at 2050. Personal belongings sent with patient. Report given to MANAS Garcia. Appropriate documentation sent with patient.
[2022-02-22 06:24] VITALS: BP 124/48; PULSE 67; RESP 14; TEMP 36.4; O2SAT 98
[2022-02-22 07:19] LABS: Hematocrit 25.7 % (37.0-47.0); Hemoglobin 8.2 g/dL (12.0-15.0); Mean Corpuscular HGB Conc 31.9 g/dl (32-36); Mean Corpuscular Hemoglobin 29.9 pg (26-34); Mean Corpuscular Volume 93.8 fl (80-100); Mean Platelet Volume 9.8 fl (7.4-10.4); Platelet Count Result 276 k/mm3 (150-375); Red Blood Count 2.74 M/mm3 (4.2-5.4); Red Cell Distribution Width 13.6 % (11.5-14.5); White Blood Count 6.4 K/mm3 (4.5-10.0)
[2022-02-22 07:30] LABS: Anion Gap 6 mmol/L (8-16); Blood Urea Nitrogen 13 mg/dL (7-17); Calcium 7.6 mg/dL (8.4-10.2); Carbon Dioxide 25 mmol/L (22-30); Chloride 103 mmol/L (98-107); Estimated CRCL calculation 47 ml/min; Estimated Glomerular Filt Rate 60; Glucose 151 mg/dL (65-110); Potassium 3.6 mmol/L (3.4-5.0); Sodium 134 mmol/L (137-145)
[2022-02-22 08:00] VITALS: PULSE 67; RESP 14; O2SAT 98
[2022-02-22 08:15] LABS: Glucose Point of Care 152 mg/dl (65-105)
[2022-02-22] MEDS: SODIUM CHLORIDE 1 GM TABLET PO (08:45)
[2022-02-22] MEDS: PANTOPRAZOLE 40 MG TABLET PO (08:45)
[2022-02-22] MEDS: ROSUVASTATIN 10 MG TABLET 20 MG PO (08:45)
[2022-02-22] MEDS: MULTIVITAMINS THERAPEUTIC TAB (*BKC) 1 TABLET PO (08:46)
[2022-02-22 12:20] LABS: Glucose Point of Care 222 mg/dl (65-105)
[2022-02-22] MEDS: INSULIN ASPART (*BKC) 100 UNITS/ML SUB-Q (12:21)
--- NOTE | 2022-02-22 12:34 | PM.DS ---
DS: Admitting Diagnosis Discharge Date 02/22/22 Admitting Diagnosis Hematemesis DS: Discharge Diagnosis Discharge Diagnosis (1) AMS (altered mental status): Code(s): R41.82 - Altered mental status, unspecified Status: Acute (2) GI bleed: Code(s): K92.2 - Gastrointestinal hemorrhage, unspecified Status: Acute (3) Hyponatremia: Code(s): E87.1 - Hypo-osmolality and hyponatremia Status: Acute (4) Acute blood loss anemia: Code(s): D62 - Acute posthemorrhagic anemia Status: Acute (5) Hypotension: Code(s): I95.9 - Hypotension, unspecified Status: Acute (6) Gastric ulcer: Code(s): K25.9 - Gastric ulcer, unspecified as acute or chronic, without hemorrhage or perforation Status: Acute (7) Reflux esophagitis: Code(s): K21.00 - Gastro-esophageal reflux disease with esophagitis, without bleeding Status: Acute (8) CHF (congestive heart failure): Code(s): I50.9 - Heart failure, unspecified Status: Acute (9) CKD (chronic kidney disease): Qualifiers: Chronic kidney disease stage: unspecified stage Qualified Code(s): N18.9 - Chronic kidney disease, unspecified Code(s): N18.9 - Chronic kidney disease, unspecified Status: Acute (10) Diabetes mellitus with neurological manifestation: Qualifiers: Diabetes mellitus type: type 2 Diabetes mellitus intermediate insulin use: with intermediate use Diabetes mellitus complication detail: with unspecified neuropathy Qualified Code(s): E11.40 - Type 2 diabetes mellitus with diabetic neuropathy, unspecified; Z79.4 - 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 Code(s): E11.49 - Type 2 diabetes mellitus with other diabetic neurological complication Status: Chronic (11) Hypertension: Qualifiers: Hypertension type: essential hypertension Qualified Code(s): I10 - Essential (primary) hypertension Code(s): I10 - Essential (primary) hypertension Status: Chronic (12) CONTRERAS (nonalcoholic steatohepatitis): Code(s): K75.81 - Nonalcoholic steatohepatitis (CONTRERAS) Status: Acute (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 Please see H&P for details Hospital Course: Patient presents with acute onset hematemesis.? GI consultes. EGD showing reflux esophagitis and gastric ulcer.? There was a visible vessel in the ulcer which was treated.? Most likely this is etiology of her upper GI bleed. Hemoglobin was 8.6 on admission. Normal baseline Hgb but she was recently hospitalized earlier this month for UTI and AMS and Hgb was 10.2 at time of discharge. Hgb followed serially and dropped to 6.8 on 02/16 associated with HoTN. Fluid bolus given and transfusion ordered. She received 1U PRBC and Hgb has climbed to the 8-9 range. Hgb dropped to 7.7 felt related to IV fluids and not recurrent bleeding. Repeat Hgb improved. Patient developed altered mental status and was not at her cognitive baseline. TSH, B12, folate normal. Ammonia level negative. No hypercapnia. Repeat UCx negative. CT brain showing no acute findings. Consider related to HoTN (BP 71/47 on 02/15). Ambien stopped. No MRI since she has PM. CXR showing left lower lobe airspace disease but felt PNA less likely. Neurology consulted. No ASA given due to recent GI bleed. Speech therapy felt patient could swallow safely and recommended minced/moist with thin liquids. Mental status improved. She was able to work with PT/OT. Patient has chronic mild hyponatremia. Na 129 on admission but improved to 135. Urine Na 22 with FENa 0.4%. Na up and down but was down to 123 at one point. This has sl
[2022-02-22] MEDS: INSULIN GLARGINE (*BKC) 100 UNITS/ML 30 UNITS SUB-Q (12:41)
[2022-02-22 14:13] LABS: EDCOVIDSCREEN Negative (Negative)
--- NOTE | 2022-02-26 07:50 | PC.NURSE ---
[facility] at [address]. Dr. Hartman aware.
== END 2022-02-22 16:29 | DRG 377 ==
LOC: ANHED 14:02 → ANHIMU 14:39 → ANH3MEDSUR 02-21 21:05
PROVIDERS: Internal Medicine Gastroenterology; Nurse Practitioner; Student in an Organized Health Care Education/Training Program; Admitting Provider Chiropractor; Emergency Provider Emergency Medicine; PCP Internal Medicine; Visit Provider Internal Medicine
PROC: 0DJ08ZZ Inspection of Upper Intestinal Tract, Via Natural or Artificial Opening Endoscopic (ICD-10-PCS; CPT 43235; principal; 2022-02-15 16:00)
DX: K25.4 Chronic or unspecified gastric ulcer with hemorrhage (principal); I81 Portal vein thrombosis; K21.01 Gastro-esophageal reflux disease with esophagitis, with bleeding; I13.0 Hypertensive heart and chronic kidney disease with heart failure and stage 1 through stage 4 chronic kidney disease, or unspecified chronic kidney disease; I50.32 Chronic diastolic (congestive) heart failure; D62 Acute posthemorrhagic anemia; E87.1 Hypo-osmolality and hyponatremia; Z98.84 Bariatric surgery status; R41.82 Altered mental status, unspecified; E86.0 Dehydration; E86.1 Hypovolemia; I95.9 Hypotension, unspecified; K75.81 Nonalcoholic steatohepatitis (NASH); I25.10 Atherosclerotic heart disease of native coronary artery without angina pectoris; I25.2 Old myocardial infarction; R79.89 Other specified abnormal findings of blood chemistry; E11.40 Type 2 diabetes mellitus with diabetic neuropathy, unspecified; E11.22 Type 2 diabetes mellitus with diabetic chronic kidney disease; N18.9 Chronic kidney disease, unspecified; E78.49 Other hyperlipidemia; F32.9 Major depressive disorder, single episode, unspecified; H53.2 Diplopia; G47.30 Sleep apnea, unspecified; M19.90 Unspecified osteoarthritis, unspecified site; M10.9 Gout, unspecified; Z20.822 Contact with and (suspected) exposure to COVID-19; Z79.4 Long term (current) use of insulin; Z79.82 Long term (current) use of aspirin; Z79.899 Other long term (current) drug therapy; Z86.16 Personal history of COVID-19; Z87.891 Personal history of nicotine dependence; Z95.5 Presence of coronary angioplasty implant and graft; Z95.810 Presence of automatic (implantable) cardiac defibrillator
CPT/HCPCS: 36415; 36430; 36600; 70450; 71045; 74174; 80048; 80053; 81001; 82010; 82140; 82570; 82607; 82746; 82805; 82948; 83036; 83605; 83690; 83735; 84100; 84295; 84300; 84425; 84443; 85014; 85018; 85025; 85027; 85610; 85730; 86140; 86850; 86900; 86901; 86923; 87086; 87426; 92610; 96361; 96365; 96375; 97161; 97165; 97530; 97535; 99285; A9270; C9113; C9803; G0378; J0171; J0696; J1815; J2704; J7030; J7050; J7120; P9016; Q9967

== ENCOUNTER 2022-04-19 15:05 | Outpatient (CLI) | payer MEDICARE, BC, SELFPAY ==
--- NOTE | ~2022-04-19 | XR_ITS ---
EXAM: XR toe 2nd LT min 2V DATE: 04/19/2022 16:20 HISTORY: M79.675 - Pain in left toe(s) FELL 1 MO AGO. PAIN/SWELLING . COMPARISON: None available. FINDINGS: Severely decreased mineralization. Oblique fracture through the distal aspect of the left second middle phalange with a suggestion of subtle healing changes. No lytic or blastic lesion. Scatt ered degenerative changes. No erosion or periosteal change. Soft tissues within normal limits. IMPRESSION: Possibly subacute oblique fracture of the distal aspect of the left second middle phalang e. Reviewed, dictated and finalized at location K. [employer] IMPRESSION: Possibly subacute oblique fracture of the distal aspect of the left second middle phalange.
[2022-04-19 16:07] LABS: Hematocrit 39.1 % (37.0-47.0); Hemoglobin 12.5 g/dL (12.0-15.0); Mean Corpuscular Hemoglobin 28.9 pg (26-34); Mean Corpuscular Volume 90.5 fl (80-100); Mean Platelet Volume 10.1 fl (7.4-10.4); Platelet Count Result 291 k/mm3 (150-375); Red Blood Count 4.32 M/mm3 (4.2-5.4); Red Cell Distribution Width 12.9 % (11.5-14.5); White Blood Count 7.1 K/mm3 (4.5-10.0)
[2022-04-19 16:08] LABS: Appearance Urine Turbid (Clear); Bilirubin Urine Negative (Negative); Blood Urine 2+ (Negative); Color Urine Yellow (Yellow); Glucose Urine UA Negative (Negative); Ketones Urine Negative (Negative); Leukocyte Esterase Ur 3+ LEU/UL (Negative); Nitrate Urine Positive (Negative); Protein Urine 2+ mg/dL (Negative); Urobilinogen Urine 0.2 mg/dL (<2.0)
[2022-04-19 16:14] LABS: Alanine Aminotransferase 26 U/L (6-35); Alkaline Phosphatase 86 U/L (38-126); Anion Gap 5 mmol/L (8-16); Aspartate Amino Transferase 36 U/L (14-36); Bilirubin,Total 0.9 mg/dL (0.2-1.3); Blood Urea Nitrogen 14 mg/dL (7-17); Calcium 8.7 mg/dL (8.4-10.2); Carbon Dioxide 25 mmol/L (22-30); Chloride 102 mmol/L (98-107); Estimated Glomerular Filt Rate 48; Glucose 105 mg/dL (65-110); Potassium 4.2 mmol/L (3.4-5.0); Sodium 132 mmol/L (137-145)
[2022-04-19 16:21] LABS: RBC Urine 21-50 /hpf (0-2); Squamous Epithelial Cell Urine Moderate /hpf (Few); WBC Clumps Urine Present /HPF; WBC Urine >75 /hpf
[2022-04-19 16:26] LABS: Add Urine Microscopic? YES
[2022-04-19 18:47] LABS: Hemoglobin A1C 7.9 % (<5.7)
== END 2022-04-19 15:06 | disposition home or self-care (01) ==
PROVIDERS: PCP Internal Medicine; Visit Provider Nurse Practitioner
DX: M79.675 Pain in left toe(s) (principal); E11.9 Type 2 diabetes mellitus without complications; R39.9 Unspecified symptoms and signs involving the genitourinary system; D50.0 Iron deficiency anemia secondary to blood loss (chronic); E87.1 Hypo-osmolality and hyponatremia
CPT/HCPCS: 36415; 73660; 80053; 81001; 83036; 85027; 87077; 87086; 87186

== ENCOUNTER 2022-08-21 21:49 | Inpatient (IN) | payer MEDICARE, BC, SELFPAY ==
--- NOTE | ~2022-08-21 | CT_ITS ---
EXAMINATION: CT chest abdomen pelvis wo con DATE: 08/30/2022 14:50 INDICATION: Leukocytosis and abdominal pain TECHNIQUE: Transaxial computed tomographic images of the chest, abdomen, and pelvis were obtained wit hout intravenous contrast. The dose-length product (DLP) was 1476.40 mGy-cm. Automated exposure cont rol and iterative reconstruction technique were employed. COMPARISON: 08/25/2022 FINDINGS: CHEST CT: There is mild dependent atelectasis. No pleural effusion or pneumothorax. A dual-lead cardiac pacemak er of the left chest wall ends with leads in expected locations. No pathologically enlarged thoracic lymph nodes are identified. The heart size is normal. Calcified coronary artery atherosclerosis is no zulema. There is a healed fracture of the right humerus. There is mild thoracic spondylosis. ABDOMEN/PELVIS CT: There is a 2 cm cyst of the left hepatic lobe. The spleen, pancreas, and adrenal glands are unremarka ble. Stones are present in the nondistended gallbladder. The bladder is decompressed by Stafford cathete r. There is mild right and moderate left hydroureteronephrosis. Wall thickening of the urinary bladde r and pericystic fat stranding are again noted. There are surgical changes of the stomach and small b owel. There is severe lumbar spondylosis. No pathologically enlarged abdominal or pelvic lymph nodes are identified. No free intraperitoneal gas or evidence of bowel obstruction. IMPRESSION: 1. Mild to moderate hydroureteronephrosis, improved on the right and unchanged on the left. 2. Diffuse wall thickening of the urinary bladder, likely cystitis. 3. Cholelithiasis without evidence of cholecystitis. 3. Mild atelectasis. Reviewed, dictated and finalized at location F.
--- NOTE | ~2022-08-21 | XR_ITS ---
EXAMINATION: XR chest 1V portable DATE: 08/21/2022 22:34 INDICATION: Weakness. TECHNIQUE: A single frontal view of the chest was obtained on 2 radiographs. COMPARISON: Chest single view 02/19/2022 FINDINGS: There is mild atelectasis in left lower lung zone. No pleural effusion or pneumothorax. The heart size is normal. There is a left chest wall pacer with leads in the right atrium and right vent ricle. IMPRESSION: 1. Mild atelectasis in left lower lung zone. Reviewed, dictated and finalized at location A.
--- NOTE | ~2022-08-21 | CT_ITS ---
CT of the Abdomen and Pelvis: Indication: Hematuria Technique: 2.5 mm axial scans were obtained through the abdomen and pelvis prior to and following in travenous administration of 130 cc of Omnipaque 350. Dose reduction technique was used on this scan b y utilizing automated exposure control and iterative reconstruction technique. The dose-length produc t (DLP) was 2610.09 mGy-cm. COMPARISON: 02/15/2022 Findings: Scans through the lung bases are unremarkable. The liver, spleen, pancreas, and adrenal glands are within normal limits. Multiple calcified gallston es are present. There is moderate bilateral hydroureteronephrosis. There is probable diffuse enhancem ent of the urothelium of the ureters and renal pelvises bilaterally. There are atherosclerotic calcif ications of the aorta. No lymphadenopathy. No bowel obstruction or bowel wall thickening. There is no evidence to suggest acute appendicitis. Th ere are shotty central mesenteric lymph nodes is minimal haziness in the central mesentery. Images through the pelvis were performed. There is diffuse wall thickening of the urinary bladder. Th ere is mild perivesical inflammatory stranding. Patient appears to be post hysterectomy. No adnexal m ass seen. Impression: Mild to moderate bilateral hydronephrosis, new from prior exam. Diffuse urinary bladder wall thickening and mild perivesical inflammatory stranding is again present, suggestive of disuse cystitis. Given new bilateral hydronephrosis, neoplasm at the bladder base is a potential alternative consideration. Consider cystoscopy as indicated. Probable enhancement of the urothelium of bilateral ureters and renal pelvises. Correlate for ascendi ng urinary tract infection. No distinct CT evidence for alon pyelonephritis. Cholelithiasis. Mild Central mesenteric panniculitis. Reviewed, dictated and finalized at location M. Impression: Mild to moderate bilateral hydronephrosis, new from prior exam. Diffuse urinary bladder wall thickening and mild perivesical inflammatory stran ding is again present, suggestive of disuse cystitis. Given new bilateral hydro nephrosis, neoplasm at the bladder base is a potential alternative consideratio n. Consider cystoscopy as indicated. Probable enhancement of the urothelium of bilateral ureters and renal pelvises. Correlate for ascending urinary tract infection. No distinct CT evidence for f rank pyelonephritis. Cholelithiasis. Mild Central mesenteric panniculitis.
--- NOTE | ~2022-08-21 | XR_ITS ---
EXAM: XR abdomen/kub 1V DATE: 08/25/2022 16:56 HISTORY: gross hematuria AND NAUSEA X 1 DAY . COMPARISON: CTPA abdomen pelvis 02/15/2022. FINDINGS: Bibasilar scar/atelectasis. Suture lines over the GE junction. Hernia mesh soft tissue anc hors over the upper left abdomen. Surgical clips over the bilateral hips. Normal bowel gas pattern. N o organomegaly. No abnormal abdominal calcification. Moderate lumbar degenerative disc disease. Mild bilateral hip osteoarthritis. IMPRESSION: No radiographic evidence of nephrolithiasis, bowel obstruction, or ileus. Reviewed, dictated and finalized at location K.
--- NOTE | ~2022-08-21 | US_ITS ---
EXAMINATION: US renal BI DATE: 08/26/2022 18:28 INDICATION: Bilateral hydronephrosis TECHNIQUE: Multiple ultrasound grayscale images of the kidneys were obtained. COMPARISON: CT dated 08/25/2022 FINDINGS: The right kidney measures 10.5 x 4.1 x 5.1 cm. The left kidney measures 9.3 x 5.1 x 5.2 cm. The kidne ys demonstrate normal echogenicity. There is mild bilateral hydronephrosis which appears slightly imp roved since the prior CT. No stones identified. Again seen is some wall thickening in the bladder. In addition there appears to be layering hypoechoic material in the dependent aspect of the inferior bl adder likely representing clot. Review of the prior CT imaging demonstrates the excreted contrast at the right renal pelvis extending along the periphery of a large amount of lower attenuation clot. The re appear to be some somewhat serpiginous filling defects in the left renal pelvis also suggestive of clot. Bilateral ureteral jets are visualized in the bladder on color Doppler. IMPRESSION: 1. There appears to been some interval improvement in mild bilateral hydronephrosis likely related t o clot which can be seen outlined by excreted contrast on the prior CT imaging. 2. Wall thickening the bladder with suggestion of additional hypoechoic clot versus debris in the dep endent bladder. Consider further evaluation with either cystoscopy or repeat imaging several days aft er resolution of hematuria. Reviewed, dictated and finalized at location A. IMPRESSION: 1. There appears to been some interval improvement in mild bilateral hydroneph rosis likely related to clot which can be seen outlined by excreted contrast on the prior CT imaging. 2. Wall thickening the bladder with suggestion of additional hypoechoic clot ve rsus debris in the dependent bladder. Consider further evaluation with either c ystoscopy or repeat imaging several days after resolution of hematuria.
--- NOTE | ~2022-08-21 | US_ITS ---
EXAMINATION: US renal BI DATE: 08/27/2022 13:46 INDICATION: Hydronephrosis status post catheter placement. TECHNIQUE: Multiple ultrasound grayscale images of the kidneys were obtained. COMPARISON: CT abdomen and pelvis 08/25/2022 FINDINGS: The right kidney measures 11.4 x 4.7 x 4.9 cm. The left kidney measures 9.6 x 5.8 x 3.8 cm. The kidne ys demonstrate normal parenchymal echogenicity. There is moderate right and mild left hydronephrosis. The bladder is decompressed by a Stafford catheter. IMPRESSION: 1. Moderate right and mild left hydronephrosis. Normal kidney sizes. Reviewed, dictated and finalized at location A.
[2022-08-21 21:50] VITALS: PULSE 93
[2022-08-21 21:52] VITALS: BP 135/49; PULSE 94; RESP 22; TEMP 36.4; O2SAT 97
--- NOTE | 2022-08-21 22:04 | ECG_ITS ---
Measurements Intervals [place] Rate: 91 P: 40 MO: 173 QRS: -14 QRSD: 137 T: 66 QT: 390 QTc: 481 Interpretive Statements SINUS RHYTHM RIGHT BUNDLE BRANCH BLOCK CANNOT RULE OUT SEPTAL INFARCT, AGE INDETERMINATE ABNORMAL ECG COMPARED TO ECG 10/01/2019 19:08:31 MYOCARDIAL INFARCT FINDING NOW PRESENT Electronically Signed On 08-22-2022 7:03:55 CDT by John Luong D.O.
[2022-08-21 22:11] LABS: Glucose Point of Care 484 mg/dl (65-105)
[2022-08-21 22:21] LABS: Basophils Absolute Auto 0.1 K/mm3 (0.0-0.1); Basophils Percent Auto 0.5 % (0.2-1.2); Eosinophils Absolute Auto 0.1 K/mm3 (0-0.3); Eosinophils Percent Auto 0.9 % (0-4.4); Hematocrit 39.6 % (37.0-47.0); Immature Granulocyte Absolute 0.06 K/mm3 (0.00-0.031); Immature Granulocyte Percent A 0.5 % (0-0.5); Lymphocytes Absolute Auto 0.78 K/mm3 (0.9-3.2); Lymphocytes Percent Auto 6.8 % (18.3-44.2); Mean Corpuscular HGB Conc 32.8 g/dl (32-36); Mean Corpuscular Hemoglobin 29.4 pg (26-34); Mean Corpuscular Volume 89.6 fl (80-100); Mean Platelet Volume 9.1 fl (7.4-10.4); Monocytes Absolute Auto 1.2 K/mm3 (0.1-0.6); Monocytes Percent Auto 10.4 % (2.6-8.5); Neutrophils Absolute Auto 9.3 K/mm3 (1.3-6.7); Neutrophils Percent Auto 80.9 % (45.5-73.1); Platelet Count Result 330 k/mm3 (150-375); Red Blood Count 4.42 M/mm3 (4.2-5.4); Red Cell Distribution Width 12.4 % (11.5-14.5); White Blood Count 11.5 K/mm3 (4.5-10.0)
[2022-08-21 22:31] VITALS: BP 92/63; PULSE 90; RESP 18; O2SAT 95
--- NOTE | 2022-08-21 22:35 | ED.GENADULT ---
HPI - General Adult General Chief complaint: Weakness Stated complaint: GEN WKNS, HI BG Time Seen by Provider: 08/21/22 22:02 History of Present Illness HPI narrative: 81-year-old female presented to the ED for evaluation of generalized weakness has been ongoing for the past 2 days. Patient denies any associated nausea vomiting or diarrhea. Patient states she has had some pain with urination. Patient is an insulin-dependent diabetic and does take Lantus. Patient states she does not check her blood sugar. Patient states because she did not eat very much today she did not take any Lantus today. Patient had a fall this evening after using the restroom and called EMS for lift assist. Patient denies any injury from the fall. Patient had a blood sugar on the scene in the high 400s. Upon arrival to the ED patient is alert and oriented. Patient is afebrile but. Patient did have an elevated blood sugar of 484. Related Data Home Medications Medication Instructions Recorded Confirmed calcium carbonate 500 mg-vitamin 1 tablet PO DAILY 04/03/19 04/15/22 D3 10 mcg (400 unit) tablet (Calcium 500 + D) multivitamin 1 tablet PO DAILY 10/01/19 04/15/22 ergocalciferol (vitamin D2) 1,250 1,250 mcg PO WEEKLY 04/15/22 04/15/22 mcg (50,000 unit) capsule (Drisdol) Allergies Allergy/AdvReac Type Severity Reaction Status Date / Time No Known Allergies Allergy Unknown Verified 08/22/22 01:38 Review of Systems Review of Systems: All systems reviewed & are unremarkable except as noted in HPI and below PMFSH Past Medical History Medical History (Updated 08/22/22 @ 02:40 by Caroline Sexton DO) Anxiety Arthritis B12 deficiency BPPV (benign paroxysmal positional vertigo) CAD (coronary artery disease) Chronic constipation Chronic hyponatremia Chronic lower back pain CKD (chronic kidney disease) stage 3, GFR 30-59 ml/min Closed fracture of right humerus (09/2019) Combined systolic and diastolic congestive heart failure Echocardiogram 01/2022: EF 35-40%, grade 1 diastolic dysfunction, technically difficult study COPD with asthma COVID-19 (~01/2022) Depression Diabetic peripheral neuropathy Eczema Frequent UTI Gallstone pancreatitis (02/04/22) Gastric ulcer Resulting in GI bleed 01/2022 Gout Hyperlipidemia Hypertension Insomnia CONTRERAS (nonalcoholic steatohepatitis) Noted on ultrasound in 2011 NSTEMI (non-ST elevated myocardial infarction) Obstructive sleep apnea Mostly noncompliant with CPAP use Osteoarthritis Peripheral artery disease Portal vein thrombosis (01/2022) Not treated due to active GI bleed of the time Reflux esophagitis Seasonal allergies Type 2 diabetes mellitus Historically uncontrolled hemoglobin A1c 9% on 08/21/2022 Vitamin D deficiency Surgical History Surgical History (Updated 08/22/22 @ 02:23 by Caroline Sexton DO) Gastric bypass status for obesity (~2001) History of appendectomy History of total hysterectomy with bilateral salpingo-oophorectomy (BSO) For benign disease History of ventral hernia repair Post-op changes noted on CT Hx of heart artery stent ICD (implantable cardioverter-defibrillator) in place (~2011) Status post panniculectomy Family History Family History (Updated 08/22/22 @ 02:25 by Caroline Sexton DO) Father Heart disease Acute myocardial infarction Arthritis Patient's father is Diabetes mellitus Mother Heart disease Acute myocardial infarction Arthritis Hypertension Diabetes mellitus CHF (congestive heart failure) Obesity Sibling Heart disease Obesity Sibling Family history of malignant neoplasm Social History Social History (Updated 08/22/22 @ 02:27 by Caroline Sexton DO) Social History: Lidia Ortega lives at her home with her son. She is retired. She is a former smoker and believes she quit approximately 13 years ago. 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 Code status:
[2022-08-21 22:38] LABS: Alanine Aminotransferase 20 U/L (6-35); Albumin Level 3.9 g/dL (3.5-5.1); Alkaline Phosphatase 87 U/L (38-126); Anion Gap 8 mmol/L (8-16); Aspartate Amino Transferase 29 U/L (14-36); Bilirubin,Total 1.6 mg/dL (0.2-1.3); Blood Urea Nitrogen 34 mg/dL (7-17); Calcium 8.9 mg/dL (8.4-10.2); Carbon Dioxide 27 mmol/L (22-30); Chloride 91 mmol/L (98-107); Estimated CRCL calculation 30 ml/min; Estimated Glomerular Filt Rate 36; Glucose 558 mg/dL (65-110); Potassium 5.1 mmol/L (3.4-5.0); Sodium 126 mmol/L (137-145)
[2022-08-21 22:46] VITALS: BP 122/61; PULSE 87; RESP 22; O2SAT 97
[2022-08-21] MEDS: INSULIN GLARGINE (*BKC) 100 UNITS/ML 45 UNITS SUB-Q (22:48)
[2022-08-21 22:50] LABS: Hemoglobin A1C 9.2 % (<5.7)
[2022-08-21 23:01] VITALS: BP 129/65; PULSE 87; RESP 25; O2SAT 95
[2022-08-21] MEDS: INSULIN HUMAN REGULAR (*BKC) 100 UNITS/ML IV PUSH (23:01)
[2022-08-21 23:15] LABS: Influenza A QL RT-PCR Negative (Negative); Influenza B QL RT-PCR Negative (Negative); RSV RNA, RT-PCR Negative (Negative); SARS-CoV-2 RNA PCR Negative (Negative)
[2022-08-21] MEDS: SODIUM CHLORIDE 0.9% IV 1,000 ML 200 ML IV CONT (23:24)
[2022-08-21 23:35] LABS: Appearance Urine Turbid (Clear); Bacteria Urine None Seen /hpf; Bilirubin Urine Negative (Negative); Blood Urine 3+ (Negative); Color Urine Yellow (Yellow); Glucose Urine UA 1+ mg/dL (Negative); Ketones Urine Trace mg/dL (Negative); Leukocyte Esterase Ur 3+ LEU/UL (Negative); Need Manual Microscopic Reviewed; Nitrate Urine Negative (Negative); Non Pathogenic Casts 0-2; Protein Urine 3+ mg/dL (Negative); Specific Grav Ur 1.017 (1.001-1.035); Squamous Epithelial Cell Urine Many /hpf (Few); WBC Urine >100 /hpf; pH Urine 5.5 (5.0-9.0)
[2022-08-21 23:52] LABS: Add Urine Microscopic? YES
[2022-08-21 23:56] LABS: Glucose Point of Care 447 mg/dl (65-105)
[2022-08-22] VITALS (12 sets, daily range): BP systolic 94–140; BP diastolic 40–93; PULSE 73–95; RESP 16–20; TEMP 36.2–36.4; O2SAT 95–98; BMI 31.4
[2022-08-22] MEDS: ONDANSETRON INJ 4 MG/2 ML VIAL IV PUSH (00:12)
--- NOTE | 2022-08-22 01:20 | ADMGEN ---
This patient, Lidia Ortega, was admitted to 2 Medical Room 256-. Patient/family oriented to hospital policies and general routines including ID bracelet, bed and alarms, visiting hours, pain management, procedures, bathroom and other care routines, personal items, smoking policy, room service/diet, and visiting hours. Information on how to activate the Rapid Response Team has been discussed. Patient/Family are encouraged to report perceived risks to care and to ask questions if they do not understand what they are told or what they should do.
--- NOTE | 2022-08-22 01:37 | PM.IMHP ---
H&P: HPI History of Present Illness Date/Time: 08/22/22 01:37 Chief Complaint: Weakness, decreased appetite Narrative: 81-year-old female with a past medical history combined systolic and diastolic heart failure, cardiac pacemaker/AICD, uncontrolled diabetes mellitus due to noncompliance, obstructive sleep apnea and other comorbidities who presented to the ER via EMS due to generalized weakness and decreased appetite. On arrival to the patient's residence EMS found the patient a hyperglycemic with a glucose of 428. The patient reports that she does take her home Lantus but does not check her glucoses. She reports that she has been weak for about 3 days and is become progressively more so. She reports that she tried to get up to go to the bathroom and slipped from her recliner in landed on her butt. She did not strike her head or lose consciousness. She has not been having lightheadedness with standing. She does have chronic urinary frequency. She may be having some increased urinary urgency. She reports that her urine has been foul smelling. She denies any increased chills from baseline but reports that her extremities are always cold. She denies any fevers. She denies any changes in her shortness of breath from baseline. She does have chronic lower extremity swelling that is unchanged. She always sleeps in a recliner. She does have a history of obstructive sleep apnea but is noncompliant with CPAP therapy. She reports that she usually has bowel movements every couple of days in her last bowel movement was 2 days ago. She has had significant decreased appetite over the last 2-3 days. She denies any sore throat or difficulty swallowing. She denies any upper respiratory symptoms. Patient denies any confusion and is alert oriented x4. Source of information includes past medical records, ER physician report and EMS report. The patient herself also provided some history. She was a good historian regarding her presentation to the hospital but was unable to provide any history regarding her past medical history and medications. Nursing staff attempted to contact the patient's son to verify the patient's med rec and were unable to do so. Thus patient's home med rec was obtained from external source. Review of Systems Review of Systems: 12 systems were reviewed with pertinent positives and negatives per HPI. Except as documented in the HPI, all other systems were reviewed and are negative. [facility] Past Medical History Medical History (Updated 08/22/22 @ 02:40 by Caroline Sexton DO) Anxiety Arthritis B12 deficiency BPPV (benign paroxysmal positional vertigo) CAD (coronary artery disease) Chronic constipation Chronic hyponatremia Chronic lower back pain CKD (chronic kidney disease) stage 3, GFR 30-59 ml/min Closed fracture of right humerus (09/2019) Combined systolic and diastolic congestive heart failure Echocardiogram 01/2022: EF 35-40%, grade 1 diastolic dysfunction, technically difficult study COPD with asthma COVID-19 (~01/2022) Depression Diabetic peripheral neuropathy Eczema Frequent UTI Gallstone pancreatitis (02/04/22) Gastric ulcer Resulting in GI bleed 01/2022 Gout Hyperlipidemia Hypertension Insomnia CONTRERAS (nonalcoholic steatohepatitis) Noted on ultrasound in 2011 NSTEMI (non-ST elevated myocardial infarction) Obstructive sleep apnea Mostly noncompliant with CPAP use Osteoarthritis Peripheral artery disease Portal vein thrombosis (01/2022) Not treated due to active GI bleed of the time Reflux esophagitis Seasonal allergies Type 2 diabetes mellitus Historically uncontrolled hemoglobin A1c 9% on 08/21/2022 Vitamin D deficiency Surgical History Surgical History (Updated 08/22/22 @ 02:23 by Caroline Sexton DO) Gastric bypass status for obesity (~2001) History of appendectomy History of total hysterectomy with bilateral salpingo-oophorectomy (BSO) For benign disease History of ventral hernia repair
[2022-08-22] MEDS: INSULIN ASPART (*BKC) 100 UNITS/ML 15 UNITS SUB-Q (01:55)
[2022-08-22 02:01] LABS: Glucose Point of Care 345 mg/dl (65-105)
[2022-08-22 04:46] LABS: Glucose Point of Care 261 mg/dl (65-105)
[2022-08-22 08:02] LABS: Glucose Point of Care 181 mg/dl (65-105)
[2022-08-22] MEDS: ENOXAPARIN 40 MG/0.4 ML SYRINGE SUB-Q (08:57)
[2022-08-22] MEDS: lisinopriL 10 MG TABLET PO (08:57)
[2022-08-22] MEDS: ROSUVASTATIN 10 MG TABLET 20 MG PO (08:57)
[2022-08-22] MEDS: INSULIN GLARGINE (*BKC) 100 UNITS/ML 45 UNITS SUB-Q (09:00)
[2022-08-22] MEDS: INSULIN ASPART (*BKC) 100 UNITS/ML SUB-Q (12:00)
[2022-08-22 12:11] LABS: Glucose Point of Care 265 mg/dl (65-105)
--- NOTE | 2022-08-22 15:37 | P.PNIM_ITS ---
Progress Note: A&P Assessment and Plan (1) Urinary tract infection: Qualifiers: Hematuria presence: with hematuria Urinary tract infection type: acute cystitis Qualified Code(s): N30.01 - Acute cystitis with hematuria Code(s): N39.0 - Urinary tract infection, site not specified Status: Acute Assessment and Plan: * Dose 1 of ceftriaxone 08/21 at 21:00 * U/a with >100 WBC/hpf but no bacteria seen, last UTI with kelbsiella resistant to ceftriaxone * Await C/s (2) Acute kidney injury superimposed on chronic kidney disease: Code(s): N17.9 - Acute kidney failure, unspecified; N18.9 - Chronic kidney disease, unspecified Status: Acute Assessment and Plan: * Likely due to volume depletion * 08/21 creatinine 1.4, f/u lab pending 08/22, HOLD lisinopril pending labs (3) Uncontrolled type 2 diabetes mellitus with hyperglycemia, with long-term current use of insulin: Code(s): E11.65 - Type 2 diabetes mellitus with hyperglycemia; Z79.4 - half-way (current) use of insulin Status: Acute Assessment and Plan: * 08/21 glucose 558 * 08/22 181 fasting, 265 at lunch * Continue basal Lantus 45 U and premeal SSI (4) Generalized weakness: Code(s): R53.1 - Weakness Status: Acute Assessment and Plan: * Hyperglycemia, deconditioning, neuropathy, volume depletion, possible UTI * Will likely need rehab * PT/OT, CC eval (5) Acute hyperkalemia: Code(s): E87.5 - Hyperkalemia Status: Acute Assessment and Plan: * Volue deplerion, ROLA, ACEI use * HOLD lisinopril (6) Hyponatremia: Code(s): E87.1 - Hypo-osmolality and hyponatremia Status: Acute Assessment and Plan: * Hyperglycemia, volume depletion acutely * Chronic component as well * F/u lab, Check FEna if not improving (7) Combined systolic and diastolic congestive heart failure: Qualifiers: Heart failure chronicity: chronic Qualified Code(s): I50.42 - Chronic combined systolic (congestive) and diastolic (congestive) heart failure Code(s): I50.40 - Unspecified combined systolic (congestive) and diastolic (congestive) heart failure Status: Acute Assessment and Plan: * Clinically compensated (8) ICD (implantable cardioverter-defibrillator) in place: Onset Date: ~2011 Code(s): Z95.810 - Presence of automatic (implantable) cardiac defibrillator Status: Acute Assessment and Plan: * 2011 after [place] (9) CAD (coronary artery disease): Qualifiers: Coronary Disease-Associated Artery/Lesion type: [place] artery [place] vs. transplanted heart: [place] heart Associated angina: without angina Qualified Code(s): I25.10 - Atherosclerotic heart disease of [place] coronary artery without angina pectoris Code(s): I25.10 - Atherosclerotic heart disease of [place] coronary artery without angina pectoris Status: Acute Assessment and Plan: * Relates hx [place] 2010 and no recurrent sx's Subjective Date/time seen: 08/22/22 15:37 Interval history: Admitted 08/21 PM with weakness increasing over about 3 days duration. BS was 558. Takes insulin but does not check blood sugars. A1c was 9.8. 08/22 Feels much better. Still very weak. Requires assist and device to transfer. Was up in chair for 2 hrs. Admits to generalized weakness, tingling in hands and feet, frequent urination, blurred vision, dry mouth, off balance Denied cp, sob, edema, abd pain, abnl bleeding, focal weakness Review of Systems Review of Systems: All syste
--- NOTE | 2022-08-22 15:37 | PM.IMPN ---
Progress Note: A&P Assessment and Plan (1) Urinary tract infection: Qualifiers: Hematuria presence: with hematuria Urinary tract infection type: acute cystitis Qualified Code(s): N30.01 - Acute cystitis with hematuria Code(s): N39.0 - Urinary tract infection, site not specified Status: Acute Assessment and Plan: Dose 1 of ceftriaxone 08/21 at 21:00 U/a with >100 WBC/hpf but no bacteria seen, last UTI with kelbsiella resistant to ceftriaxone Await C/s (2) Acute kidney injury superimposed on chronic kidney disease: Code(s): N17.9 - Acute kidney failure, unspecified; N18.9 - Chronic kidney disease, unspecified Status: Acute Assessment and Plan: Likely due to volume depletion 08/21 creatinine 1.4, f/u lab pending 08/22, HOLD lisinopril pending labs (3) Uncontrolled type 2 diabetes mellitus with hyperglycemia, with long-term current use of insulin: Code(s): E11.65 - Type 2 diabetes mellitus with hyperglycemia; Z79.4 - buttermaker (current) 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 of insulin Status: Acute Assessment and Plan: 08/21 glucose 558 08/22 181 fasting, 265 at lunch Continue basal Lantus 45 U and premeal SSI (4) Generalized weakness: Code(s): R53.1 - Weakness Status: Acute Assessment and Plan: Hyperglycemia, deconditioning, neuropathy, volume depletion, possible UTI Will likely need rehab PT/OT, CC eval (5) Acute hyperkalemia: Code(s): E87.5 - Hyperkalemia Status: Acute Assessment and Plan: Volue deplerion, ROLA, ACEI use HOLD lisinopril (6) Hyponatremia: Code(s): E87.1 - Hypo-osmolality and hyponatremia Status: Acute Assessment and Plan: Hyperglycemia, volume depletion acutely Chronic component as well F/u lab, Check FEna if not improving (7) Combined systolic and diastolic congestive heart failure: Qualifiers: Heart failure chronicity: chronic Qualified Code(s): I50.42 - Chronic combined systolic (congestive) and diastolic (congestive) heart failure Code(s): I50.40 - Unspecified combined systolic (congestive) and diastolic (congestive) heart failure Status: Acute Assessment and Plan: Clinically compensated (8) ICD (implantable cardioverter-defibrillator) in place: Onset Date: ~2011 Code(s): Z95.810 - Presence of automatic (implantable) cardiac defibrillator Status: Acute Assessment and Plan: [address] (9) CAD (coronary artery disease): Qualifiers: Coronary Disease-Associated Artery/Lesion type: [place] artery [place] vs. transplanted heart: [place] heart Associated angina: without angina Qualified Code(s): I25.10 - Atherosclerotic heart disease of [place] coronary artery without angina pectoris Code(s): I25.10 - Atherosclerotic heart disease of [place] coronary artery without angina pectoris Status: Acute Assessment and Plan: Relates hx CT 2010 and no recurrent sx's Subjective Date/time seen: 08/22/22 15:37 Interval history: Admitted 08/21 PM with weakness increasing over about 3 days duration. BS was 558. Takes insulin but does not check blood sugars. A1c was 9.8. 08/22 Feels much better. Still very weak. Requires assist and device to transfer. Was up in chair for 2 hrs. Admits to generalized weakness, tingling in hands and feet, frequent urination, blurred vision, dry mouth, off balance Denied cp, sob, edema, abd pain, abnl bleeding, focal weakness Review of Systems Review of Systems: All systems reviewed & are unremarkable except as noted in HPI and below Exam Narrative: HEENT: PERRL, sclerae nonicteric, pharyngeal mucosa pink and intact NECK: No JVD CHEST: Clear to auscultation. Normal effort. HEART: NL S1/S2, regular, no murmur ABDOMEN: BS+, soft, nontender, no mass, no bruits EXTREMITIES: No cyanosis, edema, or clubbing NEUROLOGIC: CN intact and symmetric to inspection. MUSCULOSKELETAL: Tone and st
[2022-08-22 16:39] LABS: Albumin Level 3.4 g/dL (3.5-5.1); Anion Gap 5 mmol/L (8-16); Blood Urea Nitrogen 29 mg/dL (7-17); Calcium 8.3 mg/dL (8.4-10.2); Carbon Dioxide 26 mmol/L (22-30); Chloride 96 mmol/L (98-107); Estimated CRCL calculation 28 ml/min; Estimated Glomerular Filt Rate 33; Glucose 177 mg/dL (65-110); Potassium 4.7 mmol/L (3.4-5.0); Sodium 127 mmol/L (137-145)
[2022-08-22 17:07] LABS: Glucose Point of Care 172 mg/dl (65-105)
[2022-08-22 19:40] LABS: Creatinine Urine 50.9 mg/dL
[2022-08-22 19:43] LABS: Sodium Urine Random 48 meq/L
[2022-08-22 20:16] LABS: Glucose Point of Care 185 mg/dl (65-105)
[2022-08-22 22:53] LABS: Glucose Point of Care 181 mg/dl (65-105)
[2022-08-23 03:48] VITALS: BP 127/52; PULSE 81; RESP 19; TEMP 36.2; O2SAT 93
[2022-08-23 04:46] LABS: Hematocrit 34.4 % (37.0-47.0); Hemoglobin 11.5 g/dL (12.0-15.0); Mean Corpuscular HGB Conc 33.4 g/dl (32-36); Mean Corpuscular Hemoglobin 30.1 pg (26-34); Mean Corpuscular Volume 90.1 fl (80-100); Mean Platelet Volume 8.6 fl (7.4-10.4); Platelet Count Result 278 k/mm3 (150-375); Red Blood Count 3.82 M/mm3 (4.2-5.4); Red Cell Distribution Width 12.2 % (11.5-14.5); White Blood Count 11.1 K/mm3 (4.5-10.0)
[2022-08-23 05:04] LABS: Albumin Level 3.3 g/dL (3.5-5.1); Anion Gap 4 mmol/L (8-16); Blood Urea Nitrogen 24 mg/dL (7-17); Calcium 8.3 mg/dL (8.4-10.2); Carbon Dioxide 27 mmol/L (22-30); Chloride 98 mmol/L (98-107); Estimated CRCL calculation 30 ml/min; Estimated Glomerular Filt Rate 36; Glucose 153 mg/dL (65-110); Phosphorus 4.2 mg/dL (2.5-4.5); Potassium 4.2 mmol/L (3.4-5.0); Sodium 129 mmol/L (137-145)
[2022-08-23 06:07] LABS: Glucose Point of Care 154 mg/dl (65-105)
[2022-08-23 08:43] LABS: Glucose Point of Care 159 mg/dl (65-105)
[2022-08-23] MEDS: SODIUM CHLORIDE 0.9% IV 1,000 ML 75 ML IV CONT (09:04)
[2022-08-23] MEDS: ROSUVASTATIN 10 MG TABLET 20 MG PO (09:05)
[2022-08-23] MEDS: ENOXAPARIN 40 MG/0.4 ML SYRINGE SUB-Q (09:05)
[2022-08-23] MEDS: ASPIRIN 81 MG CHEWABLE TABLET PO (09:05)
[2022-08-23] MEDS: MULTIVITAMINS THERAPEUTIC TAB (*BKC) 1 TABLET PO (09:06)
[2022-08-23] MEDS: PANTOPRAZOLE 40 MG TABLET PO (09:06)
[2022-08-23] MEDS: INSULIN GLARGINE (*BKC) 100 UNITS/ML 45 UNITS SUB-Q (09:08)
--- NOTE | 2022-08-23 11:15 | P.PNIM_ITS ---
Progress Note: A&P Assessment and Plan (1) Urinary tract infection: Qualifiers: Hematuria presence: with hematuria Urinary tract infection type: acute cystitis Qualified Code(s): N30.01 - Acute cystitis with hematuria Code(s): N39.0 - Urinary tract infection, site not specified Status: Acute Assessment and Plan: * Dose 1 of ceftriaxone 08/21 at 21:00 * U/a with >100 WBC/hpf but no bacteria seen, last UTI with kelbsiella resistant to ceftriaxone * Cultures negative. Will switch to p.o. antibiotics to finish out antibiotic course. (2) Acute kidney injury superimposed on chronic kidney disease: Code(s): N17.9 - Acute kidney failure, unspecified; N18.9 - Chronic kidney disease, unspecified Status: Acute Assessment and Plan: * Likely due to volume depletion, IV fluids at rate of 65 * 08/23 creatinine 1.4, HOLD lisinopril pending labs (3) Uncontrolled type 2 diabetes mellitus with hyperglycemia, with long-term current use of insulin: Code(s): E11.65 - Type 2 diabetes mellitus with hyperglycemia; Z79.4 - [place] (current) use of insulin Status: Acute Assessment and Plan: * Continue basal Lantus 45 U and premeal SSI * Hypoglycemic protocols initiated line * Accu-Cheks a.c. HS (4) Generalized weakness: Code(s): R53.1 - Weakness Status: Acute Assessment and Plan: * Hyperglycemia, deconditioning, neuropathy, volume depletion, possible UTI * Will likely need rehab * PT/OT, CC eval (5) Acute hyperkalemia: Code(s): E87.5 - Hyperkalemia Status: Acute Assessment and Plan: * Volue deplerion, ROLA, ACEI use * HOLD lisinopril (6) Hyponatremia: Code(s): E87.1 - Hypo-osmolality and hyponatremia Status: Acute Assessment and Plan: * Hyperglycemia, volume depletion acutely * Chronic component as well * F/u lab, Check FEna if not improving (7) Combined systolic and diastolic congestive heart failure: Qualifiers: Heart failure chronicity: chronic Qualified Code(s): I50.42 - Chronic combined systolic (congestive) and diastolic (congestive) heart failure Code(s): I50.40 - Unspecified combined systolic (congestive) and diastolic (congestive) heart failure Status: Acute Assessment and Plan: * Clinically compensated (8) ICD (implantable cardioverter-defibrillator) in place: Onset Date: ~2011 Code(s): Z95.810 - Presence of automatic (implantable) cardiac defibrillator Status: Acute Assessment and Plan: * 2011 after [place] (9) CAD (coronary artery disease): Qualifiers: Coronary Disease-Associated Artery/Lesion type: [place] artery [place] vs. transplanted heart: [place] heart Associated angina: without angina Qualified Code(s): I25.10 - Atherosclerotic heart disease of [place] coronary artery without angina pectoris Code(s): I25.10 - Atherosclerotic heart disease of [place] coronary artery without angina pectoris Status: Acute Assessment and Plan: * Relates hx [place] 2010 and no recurrent sx's Subjective Date/time seen: 08/23/22 11:15 Interval history: Patient doing well today and states that she is doing well. Plan to start patient on some fluids today to see if this helps her creatinine go back down. Review of Systems Review of Systems: All systems reviewed & are unremarkable except as noted in HPI and below Exam Narrative: GENERAL: Comfortable, no acute distress HENMT: moist mucous mem
--- NOTE | 2022-08-23 11:15 | PM.IMPN ---
Progress Note: A&P Assessment and Plan (1) Urinary tract infection: Qualifiers: Hematuria presence: with hematuria Urinary tract infection type: acute cystitis Qualified Code(s): N30.01 - Acute cystitis with hematuria Code(s): N39.0 - Urinary tract infection, site not specified Status: Acute Assessment and Plan: Dose 1 of ceftriaxone 08/21 at 21:00 U/a with >100 WBC/hpf but no bacteria seen, last UTI with kelbsiella resistant to ceftriaxone Cultures negative. Will switch to p.o. antibiotics to finish out antibiotic course. 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 HS (4) Generalized weakness: Code(s): R53.1 - Weakness Status: Acute Assessment and Plan: Hyperglycemia, deconditioning, neuropathy, volume depletion, possible UTI Will likely need rehab PT/OT, CC eval (5) Acute hyperkalemia: Code(s): E87.5 - Hyperkalemia Status: Acute Assessment and Plan: Volue deplerion, ROLA, ACEI use HOLD lisinopril (6) Hyponatremia: Code(s): E87.1 - Hypo-osmolality and hyponatremia Status: Acute Assessment and Plan: Hyperglycemia, volume depletion acutely Chronic component as well F/u lab, Check FEna if not improving (7) Combined systolic and diastolic congestive heart failure: Qualifiers: Heart failure chronicity: chronic Qualified Code(s): I50.42 - Chronic combined systolic (congestive) and diastolic (congestive) heart failure Code(s): I50.40 - Unspecified combined systolic (congestive) and diastolic (congestive) heart failure Status: Acute Assessment and Plan: Clinically compensated (8) ICD (implantable cardioverter-defibrillator) in place: Onset Date: ~2011 Code(s): Z95.810 - Presence of automatic (implantable) cardiac defibrillator Status: Acute Assessment and Plan: 2011 after [place] (9) CAD (coronary artery disease): Qualifiers: Coronary Disease-Associated Artery/Lesion type: [place] artery [place] vs. transplanted heart: [place] heart Associated angina: without angina Qualified Code(s): I25.10 - Atherosclerotic heart disease of [place] coronary artery without angina pectoris Code(s): I25.10 - Atherosclerotic heart disease of [place] coronary artery without angina pectoris Status: Acute Assessment and Plan: Relates hx [place] 2010 and no recurrent sx's Subjective Date/time seen: 08/23/22 11:15 Interval history: Patient doing well today and states that she is doing well. Plan to start patient on some fluids today to see if this helps her creatinine go back down. Review of Systems Review of Systems: All systems reviewed & are unremarkable except as noted in HPI and below Exam Narrative: GENERAL: Comfortable, no acute distress HENMT: moist mucous membranes EYES: EOM intact b/l NECK: no lymphadenopathy RESPIRATORY: clear to auscultation CARDIO: RRR GI: soft, nontender, bowel sounds present SKIN: no rashes EXTREMITIES: no edema, redness or tenderness Objective Data Vital Signs Vital Signs: Vital Signs - 24 hr 08/22/22 12:04 08/22/22 14:00 08/22/22 19:55 Temperature 97.1 F L 97.4 F L Pulse Rate 73 75 78 Respiratory Rate 16 17 Blood Pressure 119/40 L 131/59 L Pulse Oximetry 98 95 Ox
[2022-08-23 11:51] LABS: Glucose Point of Care 217 mg/dl (65-105)
[2022-08-23] MEDS: INSULIN ASPART (*BKC) 100 UNITS/ML SUB-Q ×2 (12:14→17:40)
[2022-08-23 14:16] VITALS: BP 146/57; PULSE 79; RESP 14; TEMP 36.6; O2SAT 98
[2022-08-23 16:41] LABS: Glucose Point of Care 225 mg/dl (65-105)
[2022-08-23] MEDS: CEFDINIR 300 MG CAPSULE PO (17:40)
[2022-08-23 18:35] VITALS: BP 146/57; PULSE 79; RESP 14; TEMP 36.6; O2SAT 98
[2022-08-23] MEDS: MELATONIN 5 MG TABLET PO (21:12)
[2022-08-23 21:16] LABS: Glucose Point of Care 153 mg/dl (65-105)
[2022-08-23 21:29] VITALS: BP 105/75; PULSE 87; RESP 14; TEMP 36.5; O2SAT 98
[2022-08-24 05:23] LABS: Basophils Absolute Auto 0.1 K/mm3 (0.0-0.1); Basophils Percent Auto 0.7 % (0.2-1.2); Eosinophils Absolute Auto 0.2 K/mm3 (0-0.3); Eosinophils Percent Auto 1.9 % (0-4.4); Hematocrit 32.9 % (37.0-47.0); Hemoglobin 11.1 g/dL (12.0-15.0); Immature Granulocyte Absolute 0.04 K/mm3 (0.00-0.031); Immature Granulocyte Percent A 0.5 % (0-0.5); Lymphocytes Absolute Auto 0.94 K/mm3 (0.9-3.2); Lymphocytes Percent Auto 11.3 % (18.3-44.2); Mean Corpuscular HGB Conc 33.7 g/dl (32-36); Mean Corpuscular Hemoglobin 29.8 pg (26-34); Mean Corpuscular Volume 88.4 fl (80-100); Mean Platelet Volume 8.8 fl (7.4-10.4); Monocytes Absolute Auto 1.2 K/mm3 (0.1-0.6); Monocytes Percent Auto 14.8 % (2.6-8.5); Neutrophils Absolute Auto 5.9 K/mm3 (1.3-6.7); Neutrophils Percent Auto 70.8 % (45.5-73.1); Platelet Count Result 276 k/mm3 (150-375); Red Blood Count 3.72 M/mm3 (4.2-5.4); White Blood Count 8.3 K/mm3 (4.5-10.0)
[2022-08-24] MEDS: CEFDINIR 300 MG CAPSULE PO ×2 (05:27→17:42)
[2022-08-24 05:36] LABS: Alanine Aminotransferase 16 U/L (6-35); Albumin Level 3.2 g/dL (3.5-5.1); Alkaline Phosphatase 77 U/L (38-126); Anion Gap 7 mmol/L (8-16); Aspartate Amino Transferase 22 U/L (14-36); Bilirubin,Total 0.8 mg/dL (0.2-1.3); Blood Urea Nitrogen 22 mg/dL (7-17); Calcium 8.3 mg/dL (8.4-10.2); Carbon Dioxide 25 mmol/L (22-30); Chloride 96 mmol/L (98-107); Estimated CRCL calculation 32 ml/min; Estimated Glomerular Filt Rate 40; Glucose 99 mg/dL (65-110); Potassium 4.1 mmol/L (3.4-5.0); Sodium 128 mmol/L (137-145)
[2022-08-24 05:46] VITALS: BP 130/57; PULSE 75; RESP 14; TEMP 36.6; O2SAT 94
[2022-08-24 06:56] LABS: Glucose Point of Care 100 mg/dl (65-105)
[2022-08-24 08:23] LABS: Glucose Point of Care 168 mg/dl (65-105)
[2022-08-24] MEDS: polyethylene glycoL 3350 17 GM POWD.PACK PO (09:18)
[2022-08-24] MEDS: ROSUVASTATIN 10 MG TABLET 20 MG PO (09:19)
[2022-08-24] MEDS: MULTIVITAMINS THERAPEUTIC TAB (*BKC) 1 TABLET PO (09:19)
[2022-08-24] MEDS: ENOXAPARIN 40 MG/0.4 ML SYRINGE SUB-Q (09:19)
[2022-08-24] MEDS: PANTOPRAZOLE 40 MG TABLET PO (09:19)
[2022-08-24] MEDS: ASPIRIN 81 MG CHEWABLE TABLET PO (09:19)
[2022-08-24] MEDS: INSULIN GLARGINE (*BKC) 100 UNITS/ML 45 UNITS SUB-Q (09:20)
[2022-08-24 11:39] LABS: Glucose Point of Care 168 mg/dl (65-105)
--- NOTE | 2022-08-24 12:39 | P.PNIM_ITS ---
Progress Note: A&P Assessment and Plan (1) Urinary tract infection: Qualifiers: Hematuria presence: with hematuria Urinary tract infection type: acute cystitis Qualified Code(s): N30.01 - Acute cystitis with hematuria Code(s): N39.0 - Urinary tract infection, site not specified Status: Acute Assessment and Plan: * Dose 1 of ceftriaxone 08/21 at 21:00 * U/a with >100 WBC/hpf but no bacteria seen, last UTI with kelbsiella resistant to ceftriaxone * Cultures negative. Will switch to p.o. antibiotics to finish out antibiotic course. (2) Acute kidney injury superimposed on chronic kidney disease: Code(s): N17.9 - Acute kidney failure, unspecified; N18.9 - Chronic kidney disease, unspecified Status: Acute Assessment and Plan: * Likely due to volume depletion, IV fluids at rate of 65 * 08/24 creatinine 1.3, HOLD lisinopril pending labs (3) Uncontrolled type 2 diabetes mellitus with hyperglycemia, with long-term current use of insulin: Code(s): E11.65 - Type 2 diabetes mellitus with hyperglycemia; Z79.4 - terminal press operator (current) use of insulin Status: Acute Assessment and Plan: * Continue basal Lantus 45 U and premeal SSI * Hypoglycemic protocols initiated line * Accu-Cheks a.c. HS (4) Generalized weakness: Code(s): R53.1 - Weakness Status: Acute Assessment and Plan: * Hyperglycemia, deconditioning, neuropathy, volume depletion, possible UTI * Will likely need rehab * PT/OT, CC eval (5) Acute hyperkalemia: Code(s): E87.5 - Hyperkalemia Status: Acute Assessment and Plan: * Volue deplerion, ROLA, ACEI use * HOLD lisinopril (6) Hyponatremia: Code(s): E87.1 - Hypo-osmolality and hyponatremia Status: Acute Assessment and Plan: * Hyperglycemia, volume depletion acutely * Chronic component as well * F/u lab, Check FEna if not improving (7) Combined systolic and diastolic congestive heart failure: Qualifiers: Heart failure chronicity: chronic Qualified Code(s): I50.42 - Chronic combined systolic (congestive) and diastolic (congestive) heart failure Code(s): I50.40 - Unspecified combined systolic (congestive) and diastolic (congestive) heart failure Status: Acute Assessment and Plan: * Clinically compensated (8) ICD (implantable cardioverter-defibrillator) in place: Onset Date: ~2011 Code(s): Z95.810 - Presence of automatic (implantable) cardiac defibrillator Status: Acute Assessment and Plan: * 2011 after [place] (9) CAD (coronary artery disease): Qualifiers: Coronary Disease-Associated Artery/Lesion type: [place] artery [place] vs. transplanted heart: [place] heart Associated angina: without angina Qualified Code(s): I25.10 - Atherosclerotic heart disease of [place] coronary artery without angina pectoris Code(s): I25.10 - Atherosclerotic heart disease of [place] coronary artery without angina pectoris Status: Acute Assessment and Plan: * Relates hx [place] 2010 and no recurrent sx's Subjective Date/time seen: 08/24/22 12:39 Interval history: Patient's kidney function mildly improved today. Will continue IV Fluids. Patient states that she is very tired today. Patient is on concerned that she can not walk yet although patient was using wheelchair and cane
--- NOTE | 2022-08-24 12:39 | PM.IMPN ---
Progress Note: A&P Assessment and Plan (1) Urinary tract infection: Qualifiers: Hematuria presence: with hematuria Urinary tract infection type: acute cystitis Qualified Code(s): N30.01 - Acute cystitis with hematuria Code(s): N39.0 - Urinary tract infection, site not specified Status: Acute Assessment and Plan: Dose 1 of ceftriaxone 08/21 at 21:00 U/a with >100 WBC/hpf but no bacteria seen, last UTI with kelbsiella resistant to ceftriaxone Cultures negative. Will switch to p.o. antibiotics to finish out antibiotic course. 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 HS (4) Generalized weakness: Code(s): R53.1 - Weakness Status: Acute Assessment and Plan: Hyperglycemia, deconditioning, neuropathy, volume depletion, possible UTI Will likely need rehab PT/OT, CC eval (5) Acute hyperkalemia: Code(s): E87.5 - Hyperkalemia Status: Acute Assessment and Plan: Volue deplerion, ROLA, ACEI use HOLD lisinopril (6) Hyponatremia: Code(s): E87.1 - Hypo-osmolality and hyponatremia Status: Acute Assessment and Plan: Hyperglycemia, volume depletion acutely Chronic component as well F/u lab, Check FEna if not improving (7) Combined systolic and diastolic congestive heart failure: Qualifiers: Heart failure chronicity: chronic Qualified Code(s): I50.42 - Chronic combined systolic (congestive) and diastolic (congestive) heart failure Code(s): I50.40 - Unspecified combined systolic (congestive) and diastolic (congestive) heart failure Status: Acute Assessment and Plan: Clinically compensated (8) ICD (implantable cardioverter-defibrillator) in place: Onset Date: ~2011 Code(s): Z95.810 - Presence of automatic (implantable) cardiac defibrillator Status: Acute Assessment and Plan: 2011 after IA (9) CAD (coronary artery disease): Qualifiers: Coronary Disease-Associated Artery/Lesion type: [place] artery [place] vs. transplanted heart: [place] heart Associated angina: without angina Qualified Code(s): I25.10 - Atherosclerotic heart disease of [place] coronary artery without angina pectoris Code(s): I25.10 - Atherosclerotic heart disease of [place] coronary artery without angina pectoris Status: Acute Assessment and Plan: Relates hx IA 2010 and no recurrent sx's Subjective Date/time seen: 08/24/22 12:39 Interval history: Patient's kidney function mildly improved today. Will continue IV Fluids. Patient states that she is very tired today. Patient is on concerned that she can not walk yet although patient was using wheelchair and cane at home he before presenting to the hospital. Review of Systems Review of Systems: All systems reviewed & are unremarkable except as noted in HPI and below Exam Narrative: GENERAL: Comfortable, no acute distress HENMT: moist mucous membranes EYES: EOM intact b/l NECK: no lymphadenopathy RESPIRATORY: clear to auscultation CARDIO: RRR GI: soft, nontender, bowel sounds present SKIN: no rashes EXTREMITIES: no edema, redness or tenderness Objective Data Vital Signs Vital Signs: Vital Signs - 24 hr 08/23
[2022-08-24] MEDS: SODIUM CHLORIDE 0.9% IV 1,000 ML 65 ML IV CONT (12:50)
[2022-08-24 14:02] VITALS: BP 104/71; PULSE 69; RESP 16; TEMP 36.2; O2SAT 98
[2022-08-24 17:15] LABS: Glucose Point of Care 262 mg/dl (65-105)
[2022-08-24] MEDS: INSULIN ASPART (*BKC) 100 UNITS/ML SUB-Q ×2 (17:42→21:03)
[2022-08-24 20:00] VITALS: PULSE 82; RESP 14; O2SAT 95
[2022-08-24 20:49] VITALS: BP 142/53; PULSE 82; RESP 14; TEMP 36.7; O2SAT 95
[2022-08-24 20:55] LABS: Glucose Point of Care 265 mg/dl (65-105)
[2022-08-24] MEDS: MELATONIN 5 MG TABLET PO (22:11)
[2022-08-25 00:13] VITALS: BP 121/49; PULSE 80; RESP 16; TEMP 36.9; O2SAT 95
[2022-08-25 00:41] LABS: Appearance Urine Turbid (Clear); Bilirubin Urine 3+ (Negative); Blood Urine 3+ (Negative); Color Urine Red (Yellow); Glucose Urine UA Trace mg/dL (Negative); Ketones Urine 1+ mg/dL (Negative); Leukocyte Esterase Ur 3+ LEU/UL (Negative); Nitrate Urine Negative (Negative); Protein Urine 3+ mg/dL (Negative); pH Urine 8.5 (5.0-9.0)
[2022-08-25 00:48] LABS: Add Urine Microscopic? YES
[2022-08-25 00:49] LABS: Bacteria Urine 2+ /hpf; Need Manual Microscopic Reviewed; Non Pathogenic Casts >20; RBC Urine >100 /hpf (0-2); Squamous Epithelial Cell Urine Moderate /hpf (Few); WBC Urine >100 /hpf
[2022-08-25] MEDS: SODIUM CHLORIDE 0.9% IV 1,000 ML 65 ML IV CONT ×2 (03:12→19:09)
[2022-08-25 05:42] LABS: Basophils Absolute Auto 0.1 K/mm3 (0.0-0.1); Basophils Percent Auto 0.6 % (0.2-1.2); Eosinophils Absolute Auto 0.2 K/mm3 (0-0.3); Eosinophils Percent Auto 2.6 % (0-4.4); Hematocrit 31.3 % (37.0-47.0); Hemoglobin 10.5 g/dL (12.0-15.0); Immature Granulocyte Absolute 0.05 K/mm3 (0.00-0.031); Immature Granulocyte Percent A 0.6 % (0-0.5); Lymphocytes Absolute Auto 1.01 K/mm3 (0.9-3.2); Lymphocytes Percent Auto 12.1 % (18.3-44.2); Mean Corpuscular HGB Conc 33.5 g/dl (32-36); Mean Corpuscular Hemoglobin 29.8 pg (26-34); Mean Corpuscular Volume 88.9 fl (80-100); Mean Platelet Volume 8.7 fl (7.4-10.4); Monocytes Absolute Auto 1.4 K/mm3 (0.1-0.6); Monocytes Percent Auto 16.1 % (2.6-8.5); Neutrophils Absolute Auto 5.7 K/mm3 (1.3-6.7); Platelet Count Result 266 k/mm3 (150-375); Red Blood Count 3.52 M/mm3 (4.2-5.4); Red Cell Distribution Width 12.1 % (11.5-14.5); White Blood Count 8.4 K/mm3 (4.5-10.0)
[2022-08-25] MEDS: CEFDINIR 300 MG CAPSULE PO (05:42)
[2022-08-25 05:46] VITALS: BP 119/49; PULSE 73; RESP 14; TEMP 36.4; O2SAT 96
[2022-08-25 07:09] LABS: Alanine Aminotransferase 17 U/L (6-35); Alkaline Phosphatase 75 U/L (38-126); Anion Gap 5 mmol/L (8-16); Aspartate Amino Transferase 29 U/L (14-36); Bilirubin,Total 0.6 mg/dL (0.2-1.3); Blood Urea Nitrogen 21 mg/dL (7-17); Calcium 7.9 mg/dL (8.4-10.2); Carbon Dioxide 27 mmol/L (22-30); Chloride 99 mmol/L (98-107); Estimated CRCL calculation 37 ml/min; Estimated Glomerular Filt Rate 48; Glucose 162 mg/dL (65-110); Potassium 4.2 mmol/L (3.4-5.0); Sodium 131 mmol/L (137-145)
[2022-08-25 08:13] LABS: Glucose Point of Care 156 mg/dl (65-105)
[2022-08-25] MEDS: ASPIRIN 81 MG CHEWABLE TABLET PO (08:28)
[2022-08-25] MEDS: polyethylene glycoL 3350 17 GM POWD.PACK PO (08:28)
[2022-08-25] MEDS: MULTIVITAMINS THERAPEUTIC TAB (*BKC) 1 TABLET PO (08:28)
[2022-08-25] MEDS: ROSUVASTATIN 10 MG TABLET 20 MG PO (08:28)
[2022-08-25] MEDS: PANTOPRAZOLE 40 MG TABLET PO (08:29)
[2022-08-25] MEDS: INSULIN GLARGINE (*BKC) 100 UNITS/ML 45 UNITS SUB-Q (08:31)
[2022-08-25 08:52] VITALS: RESP 16; O2SAT 96
--- NOTE | 2022-08-25 09:55 | P.PNIM_ITS ---
Progress Note: A&P Assessment and Plan (1) Urinary tract infection: Qualifiers: Hematuria presence: with hematuria Urinary tract infection type: acute cystitis Qualified Code(s): N30.01 - Acute cystitis with hematuria Code(s): N39.0 - Urinary tract infection, site not specified Status: Acute Assessment and Plan: Patient presented to [facility] ED with c/o weakness. UA with 3+ leukocytes, >100 WBC, 3+ blood, no nitrates, many epi cells, no bacteria, 3+ protein and blood. C/o urinary frequency and urgency. * She was treated with dose IV 1g ceftriaxone 08/21 in the ED. Patient was transitioned to oral cefdinir * 08/21/22 urine culture without growth. Previous urine culture showed klebsiella aerogenes (enterobactor) resistant to ceftriaxone, augmentin, zosyn, cefazolin and intermediate to macrobid and ceftazidime. * 08/25/22 patient still with hematuriaa and +suprapubic tenderness noted on exam. Repeat UA 2+ bacteria, mod epi cells, 3+ leukocytes, 3+ blood, >100 RBC & WBC * urology consulted and appreciate recommendations. * 08/25/22 repeat urine culture pending. * 08/25/22 stopped cefdinir given previous culture was resistant to Rocephin. Trial cefepime IV, renally dosed, given prior cultures. * Will attempt to obtain tighter glucose control. (2) Acute kidney injury superimposed on chronic kidney disease: Code(s): N17.9 - Acute kidney failure, unspecified; N18.9 - Chronic kidney disease, unspecified Status: Acute Assessment and Plan: Acute injury on chronic disease, stage 3b. Likely due to volume depletion from poor appetite and possible acute infection. * Treated with IV fluids at rate of 65 * 08/25/22 BUN 21, creatinine 1.1, GFR 48 and near baseline. * Trend renal function. (3) Gross hematuria: Code(s): R31.0 - Gross hematuria Status: Acute Assessment and Plan: * Urology consulted and appreciate recommendations. * Trend H/H. * Hold ASA and lovenox for now. (4) Uncontrolled type 2 diabetes mellitus with hyperglycemia, with long-term current use of insulin: Code(s): E11.65 - Type 2 diabetes mellitus with hyperglycemia; Z79.4 - halfway (current) use of insulin Status: Acute Assessment and Plan: Chronic, insulin dependent. A1c 9.2% 08/21/22. * Continue basal Lantus 45 U and aspart high-dose sliding scale insulin TID meals and HS. * Hypoglycemic protocols * Accu-Cheks a.c. HS * Adjust basal-bolus insulin as needed to keep glucose <200 mg/dL. (5) Generalized weakness: Code(s): R53.1 - Weakness Status: Acute Assessment and Plan: * Hyperglycemia, deconditioning, neuropathy, volume depletion, possible UTI * PT/OT evaluation * Care coordination following. (6) Acute hyperkalemia: Code(s): E87.5 - Hyperkalemia Status: Acute Assessment and Plan: K 5.1 on admission and milldly elevated. Likely secondary to JV-I use. * Resolved. Resume lisinopril as BP and renal function allows. (7) Hyponatremia: Code(s): E87.1 - Hypo-osmolality and hyponatremia Status: Acute Assessment and Plan: Sodium 126 on admission, baseline 131-132. Secondary to hyperglycemia and volume depletion * Stable and asymptomatic. * Continue monitoring. (8) Combined systolic and diastolic congestive heart failure: Qualifiers: Heart failure chronicity: chronic Qualified Code(s): I50.42 - Chronic combined systolic (congestive) and diastolic (congestive) heart failure
--- NOTE | 2022-08-25 09:55 | PM.IMPN ---
Progress Note: A&P Assessment and Plan (1) Urinary tract infection: Qualifiers: Hematuria presence: with hematuria Urinary tract infection type: acute cystitis Qualified Code(s): N30.01 - Acute cystitis with hematuria Code(s): N39.0 - Urinary tract infection, site not specified Status: Acute Assessment and Plan: Patient presented to [facility] ED with c/o weakness. UA with 3+ leukocytes, >100 WBC, 3+ blood, no nitrates, many epi cells, no bacteria, 3+ protein and blood. C/o urinary frequency and urgency. She was treated with dose IV 1g ceftriaxone 08/21 in the ED. Patient was transitioned to oral cefdinir 08/21/22 urine culture without growth. Previous urine culture showed klebsiella aerogenes (enterobactor) resistant to ceftriaxone, augmentin, zosyn, cefazolin and intermediate to macrobid and ceftazidime. 08/25/22 patient still with hematuriaa and +suprapubic tenderness noted on exam. Repeat UA 2+ bacteria, mod epi cells, 3+ leukocytes, 3+ blood, >100 RBC & WBC urology consulted and appreciate recommendations. 08/25/22 repeat urine culture pending. 08/25/22 stopped cefdinir given previous culture was resistant to Rocephin. Trial cefepime IV, renally dosed, given prior cultures. Will attempt to obtain tighter glucose control. (2) Acute kidney injury superimposed on chronic kidney disease: Code(s): N17.9 - Acute kidney failure, unspecified; N18.9 - Chronic kidney disease, unspecified Status: Acute Assessment and Plan: Acute injury on chronic disease, stage 3b. Likely due to volume depletion from poor appetite and possible acute infection. Treated with IV fluids at rate of 65 08/25/22 BUN 21, creatinine 1.1, GFR 48 and near baseline. Trend renal function. (3) Gross hematuria: Code(s): R31.0 - Gross hematuria Status: Acute Assessment and Plan: Urology consulted and appreciate recommendations. Trend H/H. Hold ASA and lovenox for now. 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 A1c 9.2% 08/21/22. Continue basal Lantus 45 U and aspart high-dose sliding scale insulin TID meals and HS. Hypoglycemic protocols Accu-Cheks a.c. HS Adjust basal-bolus insulin as needed to keep glucose <200 mg/dL. (5) Generalized weakness: Code(s): R53.1 - Weakness Status: Acute Assessment and Plan: Hyperglycemia, deconditioning, neuropathy, volume depletion, possible UTI PT/OT evaluation Care coordination following. (6) Acute hyperkalemia: Code(s): E87.5 - Hyperkalemia Status: Acute Assessment and Plan: K 5.1 on admission and milldly elevated. Likely secondary to JV-I use. Resolved. Resume lisinopril as BP and renal function allows. (7) Hyponatremia: Code(s): E87.1 - Hypo-osmolality and hyponatremia Status: Acute Assessment and Plan: Sodium 126 on admission, baseline 131-132. Secondary to hyperglycemia and volume depletion Stable and asymptomatic. Continue monitoring. (8) Combined systolic and diastolic congestive heart failure: Qualifiers: Heart failure chronicity: chronic Qualified Code(s): I50.42 - Chronic combined systolic (congestive) and diastolic (congestive) heart failure Code(s): I50.40 - Unspecified combined systolic (congestive) and diastolic (congestive) heart failure Status: Chronic Assessment and Plan: Not in acute exacerbation. Monitor on gentle IV fluids. (9) ICD (implantable cardioverter-defibrillator) in place: Onset Date: ~2011 Code(s): Z95.810 - Presence of automatic (implantable) cardiac defibrillator Status: Chronic Assessment and Plan:
[2022-08-25] MEDS: CEFEPIME 2 GM/NS 50 ML 2 GM/50 ML BAG IVPB (11:48)
[2022-08-25 12:09] LABS: Glucose Point of Care 251 mg/dl (65-105)
[2022-08-25] MEDS: INSULIN ASPART (*BKC) 100 UNITS/ML SUB-Q ×3 (12:23→20:38)
--- NOTE | 2022-08-25 13:46 | PCPTNOTE ---
Patient refused treatment this session due to patient wanting to sleep. Patient reported she did not sleep good last night and did not want to work with therapy. Educated patient on the importance of therapy and getting up to chair, patient continued to refuse.
[2022-08-25 14:32] VITALS: BP 130/99; PULSE 75; RESP 18; TEMP 36.6; O2SAT 96
--- NOTE | 2022-08-25 14:47 | PCCCNOTE ---
On 08/25/22, the student, Cecille Vegas, provided care and completed [facility] documentation on this patient. I have reviewed the student's documentation and agree with the findings.
--- NOTE | 2022-08-25 15:56 | WPDURCON ---
Assessment and Plan Assessment and plan (1) ROLA (acute kidney injury): Code(s): N17.9 - Acute kidney failure, unspecified Status: Acute Assessment and Plan: Improving. Continue to monitor creatinine. (2) UTI symptoms: Code(s): R39.9 - Unspecified symptoms and signs involving the genitourinary system Status: Acute Assessment and Plan: Likely secondary to uncontrolled blood glucose. We discussed that the symptoms of elevated blood sugar will cause dysuria, frequency and urgency in the absence of infection. She should manage her diabetes with diet, checking glucose daily and drinking more water to decrease these symptoms and risk of infection. Recent urine culture negative. One infection in 3 years at [place]. Chronic UTI's are unlikely, it is more likely that she has symptoms of a UTI from her uncontrolled diabetes than chronic UTI's as there is no evidence of this with positive urine cultures. (3) Gross hematuria: Code(s): R31.0 - Gross hematuria Status: Acute Assessment and Plan: Obtain CT scan to further evaluate. If findings are normal, will plan to do a repeat Cysto as an outpatient with Dr. Ordoñez. Urology Consult Note HPI Date Seen: 08/25/22 Time Seen: 15:56 Requesting Physician: Caroline Sexton DO Primary Care Provider: Kurtis Layton MD Consult Narrative Reason for consult: Chronic UTI/Gross Hematuria Narrative: Lidia Ortega is a 81 year old female who presented to the ER on 08/22/22 with c/o weakness x 2 days after a fall at home in the bathroom that resulted in a call to EMS for help. Her blood sugar at the scene was 484. She is a poorly controlled diabetic who admits to not checking her glucose daily. We were asked to see her for chronic UTI's and gross hematuria. She had Lovenox stopped d/t gross hematuria. She has a negative urine culture from arrival at the ER on 08/21/22. WBC is 8.4 and creatinine is 1.10. She is afebrile and denies abdominal pain or flank pain. She states she has dysuria almost all the time, frequency and urgency. She states she cannot tell when she has a UTI as her symptoms are the same. She most recently had a CT of her abdomen in 02/16 which showed bladder wall thickening and cystitis but was otherwise normal. A repeat urine culture has been done and is pending. She is a previous patient of Dr. Ordoñez and myself. 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 She has never been a chronic catheter patient and not uncomfortable with excess residual. She had 3 cultures done since 10/01/2019, only one was positive growing Klebsiella on that date. The others on 02/17/22 was negative and 04/19/22 grew Enterobacter but at a low colony count and is considered colonized bacteria. She states her infections have been chronic for 2 years and she is treated by her PCP. Her last visit to us was on 09/10/2016. Review of Systems Constitutional: Constitutional: Reports malaise and Reports weakness Cardiovascular: Cardiovascular: Denies chest pain Respiratory: Respiratory: Reports no additional respiratory complaints Gastrointestinal: Gastrointestinal: Denies abdominal pain, Denies nausea and Denies vomiting Genitourinary: Genitourinary: Reports nocturia, Reports dysuria and Reports urinary urgency FOR[facility]LY [facility], [facility] Past Medical History Medical History Anxiety Arthritis B12 deficiency BPPV (benign paroxysmal positional vertigo) CAD (coronary artery disease) Chronic constipation Chronic hyponatremia Chronic lower back pain CKD (chronic kidney disease) stage 3, GFR 30-59 ml/min Closed fracture of right humerus (09/2019) Combined systolic and diastolic congestive heart failure Echocardiogram 01/2022: EF 35-40%, grade 1 diastolic dysfunction, technically difficult study COPD with asthma COVID-19 (~01/2022) D
[2022-08-25 17:03] LABS: Glucose Point of Care 249 mg/dl (65-105)
[2022-08-25 19:33] VITALS: BP 168/64; PULSE 82; RESP 18; TEMP 36.3; O2SAT 97
[2022-08-25 20:00] VITALS: PULSE 82; RESP 18; O2SAT 97
[2022-08-25 20:40] LABS: Glucose Point of Care 302 mg/dl (65-105)
[2022-08-25] MEDS: MELATONIN 5 MG TABLET PO (22:24)
[2022-08-26 05:25] VITALS: BP 128/59; PULSE 72; RESP 18; TEMP 36.5; O2SAT 97
[2022-08-26 05:38] LABS: Basophils Absolute Auto 0.1 K/mm3 (0.0-0.1); Basophils Percent Auto 0.5 % (0.2-1.2); Eosinophils Absolute Auto 0.2 K/mm3 (0-0.3); Hematocrit 31.7 % (37.0-47.0); Hemoglobin 10.4 g/dL (12.0-15.0); Immature Granulocyte Absolute 0.05 K/mm3 (0.00-0.031); Immature Granulocyte Percent A 0.5 % (0-0.5); Immature Reticulocyte Fraction 20.3 % (3.0-15.9); Lymphocytes Absolute Auto 0.98 K/mm3 (0.9-3.2); Mean Corpuscular HGB Conc 32.8 g/dl (32-36); Mean Corpuscular Hemoglobin 29.3 pg (26-34); Mean Corpuscular Volume 89.3 fl (80-100); Mean Platelet Volume 8.8 fl (7.4-10.4); Monocytes Absolute Auto 1.3 K/mm3 (0.1-0.6); Monocytes Percent Auto 13.5 % (2.6-8.5); Neutrophils Absolute Auto 7.2 K/mm3 (1.3-6.7); Neutrophils Percent Auto 73.5 % (45.5-73.1); Platelet Count Result 294 k/mm3 (150-375); Red Blood Count 3.55 M/mm3 (4.2-5.4); Reticulocyte Hemoglobin Conten 29.6 pg (28.2-35.7); Reticulocyte Percent 1.69 % (0.7-4.3); Reticulocytes Absolute 0.06 M/mm3 (0.02-0.1); White Blood Count 9.8 K/mm3 (4.5-10.0)
[2022-08-26 05:49] LABS: Anion Gap 6 mmol/L (8-16); Blood Urea Nitrogen 16 mg/dL (7-17); Calcium 7.9 mg/dL (8.4-10.2); Carbon Dioxide 23 mmol/L (22-30); Chloride 100 mmol/L (98-107); Estimated CRCL calculation 39 ml/min; Estimated Glomerular Filt Rate 48; Glucose 155 mg/dL (65-110); Potassium 4.1 mmol/L (3.4-5.0); Sodium 129 mmol/L (137-145)
[2022-08-26 05:57] LABS: Iron 24 ug/dL (37-170)
[2022-08-26 06:06] LABS: Percent Iron Saturation 12 % (20-50)
[2022-08-26 07:41] LABS: Glucose Point of Care 147 mg/dl (65-105)
--- NOTE | 2022-08-26 08:33 | P.PNIM_ITS ---
Progress Note: A&P Assessment and Plan (1) Urinary tract infection: Qualifiers: Hematuria presence: with hematuria Urinary tract infection type: acute cystitis Qualified Code(s): N30.01 - Acute cystitis with hematuria Code(s): N39.0 - Urinary tract infection, site not specified Status: Acute Assessment and Plan: Patient presented to [facility] ED with c/o weakness. UA with 3+ leukocytes, >100 WBC, 3+ blood, no nitrates, many epi cells, no bacteria, 3+ protein and blood. C/o urinary frequency and urgency. * She was treated with dose IV 1g ceftriaxone 08/21 in the ED. Patient was transitioned to oral cefdinir * 08/21/22 urine culture without growth. Previous urine culture showed klebsiella aerogenes (enterobactor) resistant to ceftriaxone, augmentin, zosyn, cefazolin and intermediate to macrobid and ceftazidime. * 08/25/22 patient still with hematuriaa and +suprapubic tenderness noted on exam. Repeat UA 2+ bacteria, mod epi cells, 3+ leukocytes, 3+ blood, >100 RBC & WBC * urology consulted and appreciate recommendations. * 08/25/22 repeat urine culture pending. * 08/25/22 stopped cefdinir given previous culture was resistant to Rocephin. Trial cefepime IV, renally dosed, given prior cultures. * 08/25/22 CT abd/pelvis concerning for diffuse cystitis, possible ascending infection, and new mild to moderate bilateral hydronephrosis * Will attempt to obtain tighter glucose control as below * 08/26/22 Continue Cefepime IV and adjust per culture results. (2) Acute kidney injury superimposed on chronic kidney disease: Code(s): N17.9 - Acute kidney failure, unspecified; N18.9 - Chronic kidney disease, unspecified Status: Acute Assessment and Plan: Acute injury on chronic disease, stage 3b. Likely due to volume depletion from poor appetite and possible acute infection. * Treated with IV fluids at rate of 65 * 08/25/22 BUN 21, creatinine 1.1, GFR 48 and near baseline. * Trend renal function. * Stable (3) Gross hematuria: Code(s): R31.0 - Gross hematuria Status: Acute Assessment and Plan: * Urology consulted and appreciate recommendations. * Trend H/H; Hgb 10.4 today 08/26/22 and stable from yesterday. * Hold ASA and lovenox for now. (4) Uncontrolled type 2 diabetes mellitus with hyperglycemia, with long-term current use of insulin: Code(s): E11.65 - Type 2 diabetes mellitus with hyperglycemia; Z79.4 - detention (current) use of insulin Status: Acute Assessment and Plan: Chronic, insulin dependent. A1c 9.2% 08/21/22. * Continue basal Lantus 45 U and aspart high-dose sliding scale insulin TID meals and HS. * Hypoglycemic protocols * Accu-Cheks a.c. HS * Adjust basal-bolus insulin as needed to keep glucose <200 mg/dL. * Blood sugars 08/24/22 168 to 168 to 262 to 265 with approx 52 units basal-bolus insulin given; 08/25 156 to 251 to 249 to 302 with approx 57 units basal-bolus insulin given. pt takes 45 units lantus daily in am. Will adjust meal time insulin to 4 units with meals with moderate dose sliding scale for now and continue to adjust every 2-3 days pending patient response and avoid hypoglycemia. * Consistent carb diet (5) Generalized weakness: Code(s): R53.1 - Weakness Status: Acute Assessment and Plan: * Hyperglycemia, deconditioning, neuropathy, volume depletion, possible UTI * PT/OT evaluation - home health recommended. * Care coordination following. (6) Acute hyperkalemia: Code(s): E87.5 - Hyperkalemia Status: Resolved Assessm
--- NOTE | 2022-08-26 08:33 | PM.IMPN ---
Progress Note: A&P Assessment and Plan (1) Urinary tract infection: Qualifiers: Hematuria presence: with hematuria Urinary tract infection type: acute cystitis Qualified Code(s): N30.01 - Acute cystitis with hematuria Code(s): N39.0 - Urinary tract infection, site not specified Status: Acute Assessment and Plan: Patient presented to [facility] ED with c/o weakness. UA with 3+ leukocytes, >100 WBC, 3+ blood, no nitrates, many epi cells, no bacteria, 3+ protein and blood. C/o urinary frequency and urgency. She was treated with dose IV 1g ceftriaxone 08/21 in the ED. Patient was transitioned to oral cefdinir 08/21/22 urine culture without growth. Previous urine culture showed klebsiella aerogenes (enterobactor) resistant to ceftriaxone, augmentin, zosyn, cefazolin and intermediate to macrobid and ceftazidime. 08/25/22 patient still with hematuriaa and +suprapubic tenderness noted on exam. Repeat UA 2+ bacteria, mod epi cells, 3+ leukocytes, 3+ blood, >100 RBC & WBC urology consulted and appreciate recommendations. 08/25/22 repeat urine culture pending. 08/25/22 stopped cefdinir given previous culture was resistant to Rocephin. Trial cefepime IV, renally dosed, given prior cultures. 08/25/22 CT abd/pelvis concerning for diffuse cystitis, possible ascending infection, and new mild to moderate bilateral hydronephrosis Will attempt to obtain tighter glucose control as below 08/26/22 Continue Cefepime IV and adjust per culture results. (2) Acute kidney injury superimposed on chronic kidney disease: Code(s): N17.9 - Acute kidney failure, unspecified; N18.9 - Chronic kidney disease, unspecified Status: Acute Assessment and Plan: Acute injury on chronic disease, stage 3b. Likely due to volume depletion from poor appetite and possible acute infection. Treated with IV fluids at rate of 65 08/25/22 BUN 21, creatinine 1.1, GFR 48 and near baseline. Trend renal function. Stable (3) Gross hematuria: Code(s): R31.0 - Gross hematuria Status: Acute Assessment and Plan: Urology consulted and appreciate recommendations. Trend H/H; Hgb 10.4 today 08/26/22 and stable from yesterday. Hold ASA and lovenox for now. 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 A1c 9.2% 08/21/22. Continue basal Lantus 45 U and aspart high-dose sliding scale insulin TID meals and HS. Hypoglycemic protocols Accu-Cheks a.c. HS Adjust basal-bolus insulin as needed to keep glucose <200 mg/dL. Blood sugars 08/24/22 168 to 168 to 262 to 265 with approx 52 units basal-bolus insulin given; 08/25 156 to 251 to 249 to 302 with approx 57 units basal-bolus insulin given. pt takes 45 units lantus daily in am. Will adjust meal time insulin to 4 units with meals with moderate dose sliding scale for now and continue to adjust every 2-3 days pending patient response and avoid hypoglycemia. Consistent carb diet (5) Generalized weakness: Code(s): R53.1 - Weakness Status: Acute Assessment and Plan: Hyperglycemia, deconditioning, neuropathy, volume depletion, possible UTI PT/OT evaluation - home health recommended. Care coordination following. (6) Acute hyperkalemia: Code(s): E87.5 - Hyperkalemia Status: Resolved Assessment and Plan: K 5.1 on admission and milldly elevated. Likely secondary to JV-I use. Resolved. Resume lisinopril as BP and renal function allows. (7) Hyponatremia: Code(s): E87.1 - Hypo-osmolality and hyponatremia Status: Acute Assessment and Plan: Sodium 126 on admission, baseline 131-132. Secondary to hyperglycemia and volume depletion Stable and asymptomatic. C
[2022-08-26 08:34] LABS: Folic Acid > 20.0 ng/mL (2.76->20)
[2022-08-26] MEDS: FAMOTIDINE 10 MG TABLET PO ×2 (09:23→20:34)
[2022-08-26] MEDS: lisinopriL 10 MG TABLET PO (09:23)
[2022-08-26] MEDS: MULTIVITAMINS THERAPEUTIC TAB (*BKC) 1 TABLET PO (09:24)
[2022-08-26] MEDS: polyethylene glycoL 3350 17 GM POWD.PACK PO (09:24)
[2022-08-26] MEDS: ROSUVASTATIN 10 MG TABLET 20 MG PO (09:24)
[2022-08-26] MEDS: INSULIN GLARGINE (*BKC) 100 UNITS/ML 45 UNITS SUB-Q (09:25)
[2022-08-26] MEDS: IRON SUCROSE COMPLEX 200 MG in SODIUM CHLORIDE 0.9% IV 50 ML 120 MG IVPB (09:33)
--- NOTE | 2022-08-26 09:38 | PCPTNOTE ---
Patient refused treatment this session. Patient did not give reason why other then reporting she did not sleep good last night and did not want to do therapy today.
[2022-08-26 11:35] LABS: Glucose Point of Care 215 mg/dl (65-105)
[2022-08-26] MEDS: INSULIN ASPART (*BKC) 100 UNITS/ML SUB-Q ×4 (12:13→20:34)
[2022-08-26] MEDS: CEFEPIME 2 GM/NS 50 ML 2 GM/50 ML BAG IVPB (12:15)
[2022-08-26 13:30] VITALS: BP 144/53; PULSE 71; RESP 12; TEMP 36.2; O2SAT 95
--- NOTE | 2022-08-26 13:45 | PCOTNOTE ---
Attempted to see Patient for P.M. treatment session. Patient adamantly refused to participate in any activity. Patient verbalized she is done, she has lived her life. Patient stated, no one can make decisions for me, I'll talk to my son . Therapist educated on the importance and verbalized to RN.
--- NOTE | 2022-08-26 13:51 | PCPTNOTE ---
Patient refused treatment this session. Educated pt on the importance of working with therapy along with the CONDE. Patient continued to refuse any therapy activity (OT and PT).
--- NOTE | 2022-08-26 16:55 | WPDUROPN2 ---
Progress Note: A&P Assessment and Plan (1) Gross hematuria: Code(s): R31.0 - Gross hematuria Status: Acute Assessment and Plan: Will repeat a JAZMIN tomorrow after yoo placement to reassess. Possible bladder tumor noted on CT vs. pyelonephritis, urine culture negative. Will need an outpatient cystoscopy. (2) Urinary tract infection: Qualifiers: Hematuria presence: with hematuria Urinary tract infection type: acute cystitis Qualified Code(s): N30.01 - Acute cystitis with hematuria Code(s): N39.0 - Urinary tract infection, site not specified Status: Acute Assessment and Plan: Urine culture negative. (3) Hydronephrosis: Code(s): N13.30 - Unspecified hydronephrosis Status: Acute Subjective Subjective Date/Time Seen: 08/26/22 16:[address] scan reveals a possible bladder tumor vs. cystitis/pyelonephritis bilaterally? as well as bilateral hydronephrosis. 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 Repeat culture on 08/25/22 negative. Review of Systems Cardiovascular: Cardiovascular: Denies chest pain Respiratory: Respiratory: Reports no additional respiratory complaints Gastrointestinal: Gastrointestinal: Denies abdominal pain, Denies nausea and Denies vomiting Genitourinary: Genitourinary: Denies hematuria, Reports nocturia, Reports dysuria, Denies pelvic pain, Denies flank pain, Reports urinary incontinence, Denies urinary hesitancy and Reports urinary urgency Exam Const: General: cooperative and comfortable Resp: Effort & Inspection: normal respiratory effort Cardio: Rate: regular rate GI: GI Palp: Yes Soft to palpation and No Tenderness to palpation present (GI) : General: Yes no CVA tenderness Extrem: Right lower extremity: no edema Left lower extremity: no edema Objective Data Vital Signs Vital Signs: Vital Signs - 24 hr 08/25/22 19:33 08/25/22 20:00 08/26/22 05:25 Temperature 97.3 F L 97.7 F Pulse Rate 82 82 72 Respiratory Rate 18 18 18 Blood Pressure 168/64 H 128/59 L Pulse Oximetry 97 97 97 Oxygen Delivery Room Air 08/26/22 13:30 Temperature 97.2 F L Pulse Rate 71 Respiratory Rate 12 Blood Pressure 144/53 H Pulse Oximetry 95 Oxygen Delivery Intake/Output Intake/Output: Intake & Output 05/2908/24/22 08/25/22 08/26/22 23:59 23:59 23:59 23:59 Intake Total 1861 909 1981 500 Output Total 140 2200 Balance 1347 611 9356 -1700 Meds/Results Medications: Active Medications Generic Name Dose Route Start Last Admin Trade Name Freq PRN Reason Stop Dose Admin Aspirin 81 mg 08/23/22 08:00 08/26/22 09:30 Aspirin 81 Mg Chewable Tablet PO Not Given DAILY@0800 [facility] Calcium Carbonate 500 mg 08/23/22 09:00 08/26/22 09:23 Calcium/Vitamin D 500 Mg Tablet PO 500 mg DAILY [facility] Administration Dextrose 12.5 gm 08/22/22 01:34 Dextrose 50% 25 Gm/50 Ml Syringe IV PUSH PRN PRN Hypoglycemia Protocol Enoxaparin Sodium 40 mg 08/22/22 09:00 08/25/22 08:50 Enoxaparin 40 Mg/0.4 Ml Syringe SUB-Q Not Given DAILY [facility] Famotidine 10 mg 08/26/22 09:00 08/26/22 09:23 Famotidine 10 Mg Tablet PO 10 mg Q12HR TESFAYE Administration Ferrous Sulfate 324 mg 08/27/22 08:00 Ferrous Sulfate 324 Mg Tablet PO DAILY@0800 [facility] Glucagon 1 mg 08/22/22 01:34 Glucagon For Inj 1 Mg Vial IM PRN PRN Hypoglycemia Protocol Glucose 15 gm 08/22/22 01:34 Glucose Oral Gel 15 Gm Of Glucse In 37.5 Gm Tube PO PRN PRN Hypoglycemia Protocol Dextrose 1,000 mls @ 100 mls/hr 08/22/22 01:34 Dextrose 5% 1,000 Ml IVPB PRN PRN Hypoglycemia Protocol Cefepime HCl 2 gm in 50 mls @ 100 mls/hr 08/25/22 12:00 08/26/22 12:45 Maxipime 2 Gm/Ns 50 Ml IVPB Infused NOON [facility] Infusion Insulin Aspart 3 - 6 units 08/26/22 12:00 08/26/22 12:14 Insulin Aspart (*Bkc) 100 Units/Ml SUB-Q 3 units TIDW
[2022-08-26 16:56] LABS: Glucose Point of Care 122 mg/dl (65-105)
[2022-08-26 19:12] VITALS: BP 147/45; PULSE 81; RESP 17; TEMP 36.1; O2SAT 98
[2022-08-26 19:58] LABS: Glucose Point of Care 264 mg/dl (65-105)
[2022-08-26] MEDS: MELATONIN 5 MG TABLET PO (22:24)
[2022-08-27 04:31] VITALS: BP 151/58; PULSE 77; RESP 17; TEMP 36.1; O2SAT 95
[2022-08-27 05:49] LABS: Basophils Absolute Auto 0.1 K/mm3 (0.0-0.1); Basophils Percent Auto 0.6 % (0.2-1.2); Eosinophils Absolute Auto 0.3 K/mm3 (0-0.3); Eosinophils Percent Auto 2.5 % (0-4.4); Hematocrit 33.7 % (37.0-47.0); Hemoglobin 10.9 g/dL (12.0-15.0); Immature Granulocyte Absolute 0.07 K/mm3 (0.00-0.031); Immature Granulocyte Percent A 0.7 % (0-0.5); Lymphocytes Absolute Auto 1.02 K/mm3 (0.9-3.2); Mean Corpuscular HGB Conc 32.3 g/dl (32-36); Mean Corpuscular Hemoglobin 28.9 pg (26-34); Mean Corpuscular Volume 89.4 fl (80-100); Mean Platelet Volume 8.8 fl (7.4-10.4); Monocytes Absolute Auto 1.3 K/mm3 (0.1-0.6); Monocytes Percent Auto 12.4 % (2.6-8.5); Neutrophils Absolute Auto 7.5 K/mm3 (1.3-6.7); Neutrophils Percent Auto 73.8 % (45.5-73.1); Platelet Count Result 338 k/mm3 (150-375); Red Blood Count 3.77 M/mm3 (4.2-5.4); White Blood Count 10.2 K/mm3 (4.5-10.0)
[2022-08-27 06:02] LABS: Albumin Level 3.1 g/dL (3.5-5.1); Anion Gap 4 mmol/L (8-16); Blood Urea Nitrogen 17 mg/dL (7-17); Calcium 8.4 mg/dL (8.4-10.2); Carbon Dioxide 28 mmol/L (22-30); Chloride 99 mmol/L (98-107); Estimated CRCL calculation 35 ml/min; Estimated Glomerular Filt Rate 43; Glucose 139 mg/dL (65-110); Phosphorus 4.6 mg/dL (2.5-4.5); Potassium 4.2 mmol/L (3.4-5.0); Sodium 131 mmol/L (137-145)
[2022-08-27 08:22] LABS: Glucose Point of Care 131 mg/dl (65-105)
[2022-08-27] MEDS: FERROUS SULFATE 324 MG TABLET PO (08:57)
[2022-08-27] MEDS: FAMOTIDINE 10 MG TABLET PO ×2 (08:58→20:09)
[2022-08-27] MEDS: MULTIVITAMINS THERAPEUTIC TAB (*BKC) 1 TABLET PO (08:58)
[2022-08-27] MEDS: ROSUVASTATIN 10 MG TABLET 20 MG PO (08:59)
[2022-08-27] MEDS: polyethylene glycoL 3350 17 GM POWD.PACK PO (08:59)
[2022-08-27] MEDS: INSULIN GLARGINE (*BKC) 100 UNITS/ML 45 UNITS SUB-Q (09:01)
[2022-08-27] MEDS: INSULIN ASPART (*BKC) 100 UNITS/ML SUB-Q ×5 (09:08→20:05)
--- NOTE | 2022-08-27 09:16 | PCOTNOTE ---
Patient refused treatment this session due to being tired Patient states she does not want therapy and she wants to just lay here
[2022-08-27 09:33] VITALS: PULSE 74; O2SAT 95
--- NOTE | 2022-08-27 10:06 | P.PNIM_ITS ---
Progress Note: A&P Assessment and Plan (1) Urinary tract infection: Qualifiers: Hematuria presence: with hematuria Urinary tract infection type: acute cystitis Qualified Code(s): N30.01 - Acute cystitis with hematuria Code(s): N39.0 - Urinary tract infection, site not specified Status: Acute Assessment and Plan: Patient presented to [facility] ED with c/o weakness. UA with 3+ leukocytes, >100 WBC, 3+ blood, no nitrates, many epi cells, no bacteria, 3+ protein and blood. C/o urinary frequency and urgency. * She was treated with dose IV 1g ceftriaxone 08/21 in the ED. Patient was transitioned to oral cefdinir * 08/21/22 urine culture without growth. Previous urine culture showed klebsiella aerogenes (enterobactor) resistant to ceftriaxone, augmentin, zosyn, cefazolin and intermediate to macrobid and ceftazidime. * 08/25/22 patient still with hematuria and +suprapubic tenderness noted on exam. Repeat UA 2+ bacteria, mod epi cells, 3+ leukocytes, 3+ blood, >100 RBC & WBC * urology consulted and appreciate recommendations. * 08/25/22 repeat urine culture still without growth. * 08/25/22 stopped cefdinir given previous culture was resistant to Rocephin. * Given cefepime IV, renally dosed, given prior cultures 08/25- 08/27/22. Transition to oral Levaquin 500 mg Q48 hours (renally dosed) for total 7 day antibiotic therapy. * 08/25/22 CT abd/pelvis concerning for diffuse cystitis, possible ascending infection, and new mild to moderate bilateral hydronephrosis * Will attempt to obtain tighter glucose control as below (2) Hydronephrosis: Code(s): N13.30 - Unspecified hydronephrosis Status: Acute Assessment and Plan: B/L hydronephrosis noted on CT and confirmed on renal US. Secondary to atonic bladder. * Urology managing. * Chronic indwelling urinary catheter placed 08/26/22 and to be continued on discharge. * Repeat US shows improvement. 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 Managed by Urology. (4) Acute kidney injury superimposed on chronic kidney disease: Code(s): N17.9 - Acute kidney failure, unspecified; N18.9 - Chronic kidney disease, unspecified Status: Acute Assessment and Plan: Acute injury on chronic disease, stage 3b. Likely due to volume depletion from poor appetite and possible acute infection. * Treated with IV fluids at rate of 65 * 08/25/22 BUN 21, creatinine 1.1, GFR 48 and near baseline. * Trend renal function. * Stable (5) Gross hematuria: Code(s): R31.0 - Gross hematuria Status: Acute Assessment and Plan: * Urology managing. * Trend H/H stable. * Holding ASA and lovenox. * Outpatient cystoscopy for evaluation recommended. (6) Uncontrolled type 2 diabetes mellitus with hyperglycemia, with long-term current use of insulin: Code(s): E11.65 - Type 2 diabetes mellitus with hyperglycemia; Z79.4 - terminal supervisor (current) use of insulin Status: Acute Assessment and Plan: Chronic, insulin dependent. A1c 9.2% 08/21/22. * Continue basal Lantus 45 U and aspart high-dose sliding scale insulin TID meals and HS. * Hypoglycemic protocols * Accu-Cheks a.c. HS * Adjust basal-bolus insulin as needed to keep glucose <200 mg/dL. * Blood sugars 08/24/22 168 to 168 to 262 to 265 with approx 52 units basal-bolus insulin given; 08/25 156 to 251 to 249 to 302 with approx 57 units basal-bolus insulin given. pt takes 45 units lantus daily in am. Will a
--- NOTE | 2022-08-27 10:06 | PM.IMPN ---
Progress Note: A&P Assessment and Plan (1) Urinary tract infection: Qualifiers: Hematuria presence: with hematuria Urinary tract infection type: acute cystitis Qualified Code(s): N30.01 - Acute cystitis with hematuria Code(s): N39.0 - Urinary tract infection, site not specified Status: Acute Assessment and Plan: Patient presented to [facility] ED with c/o weakness. UA with 3+ leukocytes, >100 WBC, 3+ blood, no nitrates, many epi cells, no bacteria, 3+ protein and blood. C/o urinary frequency and urgency. She was treated with dose IV 1g ceftriaxone 08/21 in the ED. Patient was transitioned to oral cefdinir 08/21/22 urine culture without growth. Previous urine culture showed klebsiella aerogenes (enterobactor) resistant to ceftriaxone, augmentin, zosyn, cefazolin and intermediate to macrobid and ceftazidime. 08/25/22 patient still with hematuria and +suprapubic tenderness noted on exam. Repeat UA 2+ bacteria, mod epi cells, 3+ leukocytes, 3+ blood, >100 RBC & WBC urology consulted and appreciate recommendations. 08/25/22 repeat urine culture still without growth. 08/25/22 stopped cefdinir given previous culture was resistant to Rocephin. Given cefepime IV, renally dosed, given prior cultures 08/25- 08/27/22. Transition to oral Levaquin 500 mg Q48 hours (renally dosed) for total 7 day antibiotic therapy. 08/25/22 CT abd/pelvis concerning for diffuse cystitis, possible ascending infection, and new mild to moderate bilateral hydronephrosis Will attempt to obtain tighter glucose control as below (2) Hydronephrosis: Code(s): N13.30 - Unspecified hydronephrosis Status: Acute Assessment and Plan: B/L hydronephrosis noted on CT and confirmed on renal US. Secondary to atonic bladder. Urology managing. Chronic indwelling urinary catheter placed 08/26/22 and to be continued on discharge. Repeat US shows improvement. 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 Managed by Urology. (4) Acute kidney injury superimposed on chronic kidney disease: Code(s): N17.9 - Acute kidney failure, unspecified; N18.9 - Chronic kidney disease, unspecified Status: Acute Assessment and Plan: Acute injury on chronic disease, stage 3b. Likely due to volume depletion from poor appetite and possible acute infection. Treated with IV fluids at rate of 65 08/25/22 BUN 21, creatinine 1.1, GFR 48 and near baseline. Trend renal function. Stable (5) Gross hematuria: Code(s): R31.0 - Gross hematuria Status: Acute Assessment and Plan: Urology managing. Trend H/H stable. Holding ASA and lovenox. Outpatient cystoscopy for evaluation recommended. (6) Uncontrolled type 2 diabetes mellitus with hyperglycemia, with long-term current use of insulin: Code(s): E11.65 - Type 2 diabetes mellitus with hyperglycemia; Z79.4 - skilled nursing (current) use of insulin Status: Acute Assessment and Plan: Chronic, insulin dependent. A1c 9.2% 08/21/22. Continue basal Lantus 45 U and aspart high-dose sliding scale insulin TID meals and HS. Hypoglycemic protocols Accu-Cheks a.c. HS Adjust basal-bolus insulin as needed to keep glucose <200 mg/dL. Blood sugars 08/24/22 168 to 168 to 262 to 265 with approx 52 units basal-bolus insulin given; 08/25 156 to 251 to 249 to 302 with approx 57 units basal-bolus insulin given. pt takes 45 units lantus daily in am. Will adjust meal time insulin to 4 units with meals with moderate dose sliding scale for now and continue to adjust every 2-3 days pending patient response and avoid hypoglycemia. Consistent carb diet 08/27/22 Improving, glucose 131 to 147 today. Continue Lantus 45 units daily, aspart 4 units with meals plus moderate dose sliding scale with meals and HS per protocol. (7) Generalized weakness: Cod
--- NOTE | 2022-08-27 11:24 | PCPTNOTE ---
Patient refused treatment this session. Patient did not really give reason why. Encouraged patient to participate in therapy, however patient would just wake up enough to shake her head no to therapy and would closer her eyes and go back to sleep.
--- NOTE | 2022-08-27 11:57 | WPDUROPN2 ---
Progress Note: A&P Assessment and Plan (1) Hydronephrosis: Code(s): N13.30 - Unspecified hydronephrosis Status: Acute Assessment and Plan: mild improvement on JAZMIN. Will repeat JAZMIN today s/p cath placement, I expect resolution, urine is clear and draining to gravity. She is sleeping comfortably. Will need to continue yoo indefinitely with monthly changes. We can discuss an SP tube at some point outpatient. (2) Gross hematuria: Code(s): R31.0 - Gross hematuria Status: Acute Assessment and Plan: No gross hematuria noted today, CT shows no sources of bleeding in upper tracts, possible bladder tumor versus blood clot on JAZMIN. Will need a cystoscopy as an outpatient once discharged. 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 Yoo was then placed, we will repeat the JAZMIN today to ensure resolution of hydro and clot. Urine is clear today, no blood present in yoo catheter. Atonic bladder noted on Urodynamic study from our office in 2017, will need catheter skilled nursing with monthly changes d/t bilateral hydronephrosis, overflow incontinence. Review of Systems Cardiovascular: Cardiovascular: Denies chest pain Respiratory: Respiratory: Reports no additional respiratory complaints Gastrointestinal: Gastrointestinal: Denies abdominal pain, Denies nausea and Denies vomiting Genitourinary: Genitourinary: Reports hematuria, Denies nocturia, Denies dysuria, Denies pelvic pain, Reports urinary incontinence, Denies urinary hesitancy and Denies urinary urgency Exam Const: General: cooperative and comfortable Resp: Effort & Inspection: normal respiratory effort Cardio: Rate: regular rate GI: GI Palp: Yes Soft to palpation and No Tenderness to palpation present (GI) : General: Yes no CVA tenderness Urinary Catheter: Urinary Catheter: patent and draining and urine clear Back/Spine/Pelvis: Back: no CVA tenderness Extrem: Right lower extremity: no edema Left lower extremity: no edema Objective Data Vital Signs Vital Signs: Vital Signs - 24 hr 08/26/22 13:30 08/26/22 19:12 08/26/22 20:25 Temperature 97.2 F L 97 F L Pulse Rate 71 81 Respiratory Rate 12 17 Blood Pressure 144/53 H 147/45 H Pulse Oximetry 95 98 Oxygen Delivery Room Air 08/27/22 04:31 08/27/22 09:33 Temperature 97 F L Pulse Rate 77 74 Respiratory Rate 17 Blood Pressure 151/58 H Pulse Oximetry 95 95 Oxygen Delivery Room Air Intake/Output Intake/Output: Intake & Output 08/24/22 08/25/22 08/26/22 08/27/22 23:59 23:59 23:59 23:59 Intake Total 660 3730 1890 690 Output Total 140 2650 1500 Balance 520 4156 -447 -813 Meds/Results Medications: Active Medications Generic Name Dose Route Start Last Admin Trade Name Freq PRN Reason Stop Dose Admin Aspirin 81 mg 08/23/22 08:00 08/26/22 09:30 Aspirin 81 Mg Chewable Tablet PO Not Given DAILY@0800 [facility] Calcium Carbonate 500 mg 08/23/22 09:00 08/27/22 08:57 Calcium/Vitamin D 500 Mg Tablet PO 500 mg DAILY [facility] Administration Dextrose 12.5 gm 08/22/22 01:34 Dextrose 50% 25 Gm/50 Ml Syringe IV PUSH PRN PRN Hypoglycemia Protocol Enoxaparin Sodium 40 mg 08/22/22 09:00 08/25/22 08:50 Enoxaparin 40 Mg/0.4 Ml Syringe SUB-Q Not Given DAILY [facility] Famotidine 10 mg 08/26/22 09:00 08/27/22 08:58 Famotidine 10 Mg Tablet PO 10 mg Q12HR TESFAYE Administration Ferrous Sulfate 324 mg 08/27/22 08:00 08/27/22 08:57 Ferrous Sulfate 324 Mg Tablet PO 324 mg DAILY@0800 [facility] Administration Glucagon 1 mg 08/22/22 01:34 Glucagon For Inj 1 Mg Vial IM PRN PRN Hypoglycemia Protocol Glucose 15 gm 08/22/22 01:34 Glucose Oral Gel 15 Gm Of G
[2022-08-27 12:03] LABS: Glucose Point of Care 147 mg/dl (65-105)
[2022-08-27] MEDS: lisinopriL 10 MG TABLET PO (12:04)
[2022-08-27] MEDS: CEFEPIME 2 GM/NS 50 ML 2 GM/50 ML BAG IVPB (12:08)
--- NOTE | 2022-08-27 14:11 | PCPTNOTE ---
Patient refused treatment this session. Educated patient on the importance of working with therapy and getting up to chair, patient continued to refuse.
[2022-08-27 14:21] VITALS: BP 113/54; PULSE 64; RESP 16; TEMP 36.4; O2SAT 97
--- NOTE | 2022-08-27 16:42 | PCPTNOTE ---
Spoke with hospitalist who OK DC of therapy orders due to pt refusing therapy.
[2022-08-27 17:44] LABS: Glucose Point of Care 230 mg/dl (65-105)
[2022-08-27 19:20] VITALS: BP 104/54; PULSE 72; RESP 16; TEMP 36.4; O2SAT 96
[2022-08-27] MEDS: MELATONIN 5 MG TABLET PO (20:09)
[2022-08-27 20:13] LABS: Glucose Point of Care 220 mg/dl (65-105)
[2022-08-27 21:18] VITALS: O2SAT 96
[2022-08-28 04:36] VITALS: BP 127/51; PULSE 72; RESP 16; TEMP 37.1; O2SAT 98
--- NOTE | 2022-08-28 07:00 | ECG_ITS ---
Measurements Intervals [place] Rate: 66 P: 46 ND: 161 QRS: -26 QRSD: 142 T: 92 QT: 467 QTc: 492 Interpretive Statements SINUS RHYTHM RIGHT BUNDLE BRANCH BLOCK [120+ ms QRS DURATION, UPRIGHT V1, 40+ ms S IN I/aVL/V4/V5/V6] CANNOT RULE OUT SEPTAL MYOCARDIAL INFARCTION , OF INDETERMINATE AGE [40+ ms Q WAVE IN V1/V2] COMPARED TO ECG 08/21/2022 22:17:20 NO SIGNIFICANT CHANGES Electronically Signed On 08-28-2022 9:43:52 CDT by Yajaira Mast M.D.
[2022-08-28] MEDS: FERROUS SULFATE 324 MG TABLET PO (08:05)
[2022-08-28] MEDS: lisinopriL 10 MG TABLET PO (08:05)
[2022-08-28] MEDS: FAMOTIDINE 10 MG TABLET PO ×2 (08:05→22:26)
[2022-08-28] MEDS: levoFLOXacin 500 MG TABLET PO (08:05)
[2022-08-28] MEDS: MULTIVITAMINS THERAPEUTIC TAB (*BKC) 1 TABLET PO (08:05)
[2022-08-28] MEDS: ROSUVASTATIN 10 MG TABLET 20 MG PO (08:05)
[2022-08-28] MEDS: polyethylene glycoL 3350 17 GM POWD.PACK PO (08:05)
[2022-08-28 08:24] LABS: Glucose Point of Care 148 mg/dl (65-105)
[2022-08-28] MEDS: INSULIN GLARGINE (*BKC) 100 UNITS/ML 45 UNITS SUB-Q (08:49)
[2022-08-28] MEDS: BISACODYL 10 MG SUPPOSITORY RECTAL (08:50)
--- NOTE | 2022-08-28 11:33 | PCOTNOTE ---
Attempted to see patient this am, however upon entering patient did not arouse by introduction. Pt sleeping soundly at this time and did not disturb for this reason.
[2022-08-28 11:56] LABS: Glucose Point of Care 310 mg/dl (65-105)
[2022-08-28] MEDS: INSULIN ASPART (*BKC) 100 UNITS/ML SUB-Q ×2 (11:57→11:59)
[2022-08-28 14:00] VITALS: BP 129/52; PULSE 75; RESP 18; TEMP 36.4; O2SAT 95
--- NOTE | 2022-08-28 16:29 | P.PNIM_ITS ---
Progress Note: A&P Assessment and Plan (1) Urinary tract infection: Qualifiers: Hematuria presence: with hematuria Urinary tract infection type: acute cystitis Qualified Code(s): N30.01 - Acute cystitis with hematuria Code(s): N39.0 - Urinary tract infection, site not specified Status: Acute Assessment and Plan: Patient presented to [facility] ED with c/o weakness. UA with 3+ leukocytes, >100 WBC, 3+ blood, no nitrates, many epi cells, no bacteria, 3+ protein and blood. C/o urinary frequency and urgency. * She was treated with dose IV 1g ceftriaxone 08/21 in the ED. Patient was transitioned to oral cefdinir * 08/21/22 urine culture without growth. Previous urine culture showed klebsiella aerogenes (enterobactor) resistant to ceftriaxone, augmentin, zosyn, cefazolin and intermediate to macrobid and ceftazidime. * 08/25/22 patient still with hematuria and +suprapubic tenderness noted on exam. Repeat UA 2+ bacteria, mod epi cells, 3+ leukocytes, 3+ blood, >100 RBC & WBC * urology consulted and appreciate recommendations. * 08/25/22 repeat urine culture still without growth. * 08/25/22 stopped cefdinir given previous culture was resistant to Rocephin. * Given cefepime IV, renally dosed, given prior cultures 08/25- 08/27/22. Transition to oral Levaquin 500 mg Q48 hours (renally dosed) for total 7 day antibiotic therapy. * 08/25/22 CT abd/pelvis concerning for diffuse cystitis, possible ascending infection, and new mild to moderate bilateral hydronephrosis * Attempt tighter glucose control as below (2) Hydronephrosis: Qualifiers: Hydronephrosis type: other Qualified Code(s): N13.39 - Other hydronephrosis Code(s): N13.30 - Unspecified hydronephrosis Status: Acute Assessment and Plan: B/L hydronephrosis noted on CT and confirmed on renal US. Secondary to atonic bladder. * Urology managing. * Chronic indwelling urinary catheter placed 08/26/22 and to be continued on discharge. * Repeat US showed improvement. 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 Managed by Urology. (4) Acute kidney injury superimposed on chronic kidney disease: Code(s): N17.9 - Acute kidney failure, unspecified; N18.9 - Chronic kidney disease, unspecified Status: Acute Assessment and Plan: Acute injury on chronic disease, stage 3b. Likely due to volume depletion from poor appetite and possible acute infection. * Treated with IV fluids at rate of 65 * 08/25/22 BUN 21, creatinine 1.1, GFR 48 and near baseline. * Trend renal function. * Stable (5) Gross hematuria: Code(s): R31.0 - Gross hematuria Status: Acute Assessment and Plan: * Urology managing. * Trend H/H stable. * Holding ASA and lovenox. * Outpatient cystoscopy for evaluation recommended. (6) Uncontrolled type 2 diabetes mellitus with hyperglycemia, with long-term current use of insulin: Code(s): E11.65 - Type 2 diabetes mellitus with hyperglycemia; Z79.4 - care home (current) use of insulin Status: Acute Assessment and Plan: Chronic, insulin dependent. A1c 9.2% 08/21/22. * Continue basal Lantus 45 U and aspart high-dose sliding scale insulin TID meals and HS. * Hypoglycemic protocols * Accu-Cheks a.c. HS * Adjust basal-bolus insulin as needed to keep glucose <200 mg/dL. * Blood sugars 08/24/22 168 to 168 to 262 to 265 with approx 52 units basal-bolus insulin given; 08/25 156 to 25
--- NOTE | 2022-08-28 16:29 | PM.IMPN ---
Progress Note: A&P Assessment and Plan (1) Urinary tract infection: Qualifiers: Hematuria presence: with hematuria Urinary tract infection type: acute cystitis Qualified Code(s): N30.01 - Acute cystitis with hematuria Code(s): N39.0 - Urinary tract infection, site not specified Status: Acute Assessment and Plan: Patient presented to [facility] ED with c/o weakness. UA with 3+ leukocytes, >100 WBC, 3+ blood, no nitrates, many epi cells, no bacteria, 3+ protein and blood. C/o urinary frequency and urgency. She was treated with dose IV 1g ceftriaxone 08/21 in the ED. Patient was transitioned to oral cefdinir 08/21/22 urine culture without growth. Previous urine culture showed klebsiella aerogenes (enterobactor) resistant to ceftriaxone, augmentin, zosyn, cefazolin and intermediate to macrobid and ceftazidime. 08/25/22 patient still with hematuria and +suprapubic tenderness noted on exam. Repeat UA 2+ bacteria, mod epi cells, 3+ leukocytes, 3+ blood, >100 RBC & WBC urology consulted and appreciate recommendations. 08/25/22 repeat urine culture still without growth. 08/25/22 stopped cefdinir given previous culture was resistant to Rocephin. Given cefepime IV, renally dosed, given prior cultures 08/25- 08/27/22. Transition to oral Levaquin 500 mg Q48 hours (renally dosed) for total 7 day antibiotic therapy. 08/25/22 CT abd/pelvis concerning for diffuse cystitis, possible ascending infection, and new mild to moderate bilateral hydronephrosis Attempt tighter glucose control as below (2) Hydronephrosis: Qualifiers: Hydronephrosis type: other Qualified Code(s): N13.39 - Other hydronephrosis Code(s): N13.30 - Unspecified hydronephrosis Status: Acute Assessment and Plan: B/L hydronephrosis noted on CT and confirmed on renal US. Secondary to atonic bladder. Urology managing. Chronic indwelling urinary catheter placed 08/26/22 and to be continued on discharge. Repeat US showed improvement. 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 Managed by Urology. (4) Acute kidney injury superimposed on chronic kidney disease: Code(s): N17.9 - Acute kidney failure, unspecified; N18.9 - Chronic kidney disease, unspecified Status: Acute Assessment and Plan: Acute injury on chronic disease, stage 3b. Likely due to volume depletion from poor appetite and possible acute infection. Treated with IV fluids at rate of 65 08/25/22 BUN 21, creatinine 1.1, GFR 48 and near baseline. Trend renal function. Stable (5) Gross hematuria: Code(s): R31.0 - Gross hematuria Status: Acute Assessment and Plan: Urology managing. Trend H/H stable. Holding ASA and lovenox. Outpatient cystoscopy for evaluation recommended. (6) Uncontrolled type 2 diabetes mellitus with hyperglycemia, with long-term current use of insulin: Code(s): E11.65 - Type 2 diabetes mellitus with hyperglycemia; Z79.4 - shelter (current) use of insulin Status: Acute Assessment and Plan: Chronic, insulin dependent. A1c 9.2% 08/21/22. Continue basal Lantus 45 U and aspart high-dose sliding scale insulin TID meals and HS. Hypoglycemic protocols Accu-Cheks a.c. HS Adjust basal-bolus insulin as needed to keep glucose <200 mg/dL. Blood sugars 08/24/22 168 to 168 to 262 to 265 with approx 52 units basal-bolus insulin given; 08/25 156 to 251 to 249 to 302 with approx 57 units basal-bolus insulin given. pt takes 45 units lantus daily in am. Will adjust meal time insulin to 4 units with meals with moderate dose sliding scale for now and continue to adjust every 2-3 days pending patient response and avoid hypoglycemia. Consistent carb diet 08/27/22 Improving, glucose 131 to 147 today. Continue Lantus 45 units daily, aspart 4 units with meals plus moderate do
[2022-08-28 17:16] LABS: Glucose Point of Care 152 mg/dl (65-105)
[2022-08-28 20:00] VITALS: PULSE 86; RESP 16; O2SAT 99
[2022-08-28 20:12] VITALS: BP 108/49; PULSE 86; RESP 16; TEMP 36.6; O2SAT 99
[2022-08-28 21:19] LABS: Glucose Point of Care 176 mg/dl (65-105)
[2022-08-28] MEDS: MELATONIN 5 MG TABLET PO (22:26)
[2022-08-29] MEDS: BENZOCAINE 20% HEMORRHOIDAL OINTMENT 28 GM 1 APPLIC TOPICAL ×2 (03:31→19:37)
[2022-08-29 04:57] VITALS: BP 123/46; PULSE 82; RESP 16; TEMP 36.8; O2SAT 97
[2022-08-29 05:56] LABS: Basophils Absolute Auto 0.1 K/mm3 (0.0-0.1); Basophils Percent Auto 0.3 % (0.2-1.2); Eosinophils Absolute Auto 0.1 K/mm3 (0-0.3); Eosinophils Percent Auto 0.4 % (0-4.4); Hematocrit 33.6 % (37.0-47.0); Hemoglobin 11.1 g/dL (12.0-15.0); Immature Granulocyte Absolute 0.13 K/mm3 (0.00-0.031); Immature Granulocyte Percent A 0.6 % (0-0.5); Lymphocytes Absolute Auto 1.22 K/mm3 (0.9-3.2); Mean Corpuscular Hemoglobin 29.8 pg (26-34); Mean Corpuscular Volume 90.1 fl (80-100); Mean Platelet Volume 8.8 fl (7.4-10.4); Monocytes Absolute Auto 1.8 K/mm3 (0.1-0.6); Neutrophils Absolute Auto 17.1 K/mm3 (1.3-6.7); Neutrophils Percent Auto 83.7 % (45.5-73.1); Platelet Count Result 373 k/mm3 (150-375); Red Blood Count 3.73 M/mm3 (4.2-5.4); Red Cell Distribution Width 12.2 % (11.5-14.5); White Blood Count 20.4 K/mm3 (4.5-10.0)
[2022-08-29 06:17] LABS: Anion Gap 7 mmol/L (8-16); Blood Urea Nitrogen 22 mg/dL (7-17); Calcium 8.4 mg/dL (8.4-10.2); Carbon Dioxide 26 mmol/L (22-30); Chloride 96 mmol/L (98-107); Estimated CRCL calculation 33 ml/min; Estimated Glomerular Filt Rate 40; Glucose 152 mg/dL (65-110); Potassium 4.4 mmol/L (3.4-5.0); Sodium 129 mmol/L (137-145)
[2022-08-29 07:52] LABS: Glucose Point of Care 145 mg/dl (65-105)
[2022-08-29 08:00] VITALS: PULSE 82; RESP 16; O2SAT 97
[2022-08-29] MEDS: FAMOTIDINE 10 MG TABLET PO ×2 (08:31→21:56)
[2022-08-29] MEDS: MULTIVITAMINS THERAPEUTIC TAB (*BKC) 1 TABLET PO (08:31)
[2022-08-29] MEDS: ROSUVASTATIN 10 MG TABLET 20 MG PO (08:31)
[2022-08-29] MEDS: FERROUS SULFATE 324 MG TABLET PO (08:31)
[2022-08-29] MEDS: polyethylene glycoL 3350 17 GM POWD.PACK PO (08:31)
[2022-08-29] MEDS: lisinopriL 10 MG TABLET PO (08:31)
[2022-08-29] MEDS: INSULIN GLARGINE (*BKC) 100 UNITS/ML 45 UNITS SUB-Q (08:32)
[2022-08-29] MEDS: INSULIN ASPART (*BKC) 100 UNITS/ML SUB-Q ×4 (08:32→21:56)
[2022-08-29 11:08] LABS: CRP 7.8 mg/dL (<1.0)
[2022-08-29 11:23] LABS: Procalcitonin 0.2 ng/mL
[2022-08-29 11:41] LABS: Glucose Point of Care 195 mg/dl (65-105)
[2022-08-29 12:51] VITALS: BMI 10.0
[2022-08-29 14:00] VITALS: BP 121/43; PULSE 80; RESP 16; TEMP 36.3; O2SAT 98
[2022-08-29 15:06] LABS: Basophils Absolute Auto 0.1 K/mm3 (0.0-0.1); Basophils Percent Auto 0.2 % (0.2-1.2); Eosinophils Absolute Auto 0.1 K/mm3 (0-0.3); Eosinophils Percent Auto 0.2 % (0-4.4); Hematocrit 34.1 % (37.0-47.0); Hemoglobin 11.3 g/dL (12.0-15.0); Immature Granulocyte Absolute 0.24 K/mm3 (0.00-0.031); Immature Granulocyte Percent A 1.1 % (0-0.5); Lymphocytes Absolute Auto 0.96 K/mm3 (0.9-3.2); Lymphocytes Percent Auto 4.5 % (18.3-44.2); Mean Corpuscular HGB Conc 33.1 g/dl (32-36); Mean Corpuscular Hemoglobin 29.3 pg (26-34); Mean Corpuscular Volume 88.3 fl (80-100); Mean Platelet Volume 8.8 fl (7.4-10.4); Monocytes Absolute Auto 1.7 K/mm3 (0.1-0.6); Monocytes Percent Auto 7.7 % (2.6-8.5); Neutrophils Absolute Auto 18.5 K/mm3 (1.3-6.7); Neutrophils Percent Auto 86.3 % (45.5-73.1); Platelet Count Result 380 k/mm3 (150-375); Red Blood Count 3.86 M/mm3 (4.2-5.4); Red Cell Distribution Width 12.2 % (11.5-14.5); White Blood Count 21.4 K/mm3 (4.5-10.0)
--- NOTE | 2022-08-29 15:46 | P.PNIM_ITS ---
Progress Note: A&P Assessment and Plan (1) Urinary tract infection: Qualifiers: Hematuria presence: with hematuria Urinary tract infection type: acute cystitis Qualified Code(s): N30.01 - Acute cystitis with hematuria Code(s): N39.0 - Urinary tract infection, site not specified Status: Acute Assessment and Plan: Patient presented to located within [facility] ED with c/o weakness. UA with 3+ leukocytes, >100 WBC, 3+ blood, no nitrates, many epi cells, no bacteria, 3+ protein and blood. C/o urinary frequency and urgency. * She was treated with dose IV 1g ceftriaxone 08/21 in the ED. Patient was transitioned to oral cefdinir * 08/21/22 urine culture without growth. Previous urine culture showed klebsiella aerogenes (enterobactor) resistant to ceftriaxone, augmentin, zosyn, cefazolin and intermediate to macrobid and ceftazidime. * 08/25/22 patient still with hematuria and +suprapubic tenderness noted on exam. Repeat UA 2+ bacteria, mod epi cells, 3+ leukocytes, 3+ blood, >100 RBC & WBC * urology consulted and appreciate recommendations. * 08/25/22 repeat urine culture still without growth. * 08/25/22 stopped cefdinir given previous culture was resistant to Rocephin. * Given cefepime IV, renally dosed, given prior cultures 08/25- 08/27/22. Transition to oral Levaquin 500 mg Q48 hours (renally dosed) for total 7 day antibiotic therapy. * 08/25/22 CT abd/pelvis concerning for diffuse cystitis, possible ascending infection, and new mild to moderate bilateral hydronephrosis * Attempt tighter glucose control as below * Levaquin to be completed 08/31/22 Urine is clear via yoo. (2) Hydronephrosis: Qualifiers: Hydronephrosis type: other Qualified Code(s): N13.39 - Other hydronephrosis Code(s): N13.30 - Unspecified hydronephrosis Status: Acute Assessment and Plan: B/L hydronephrosis noted on CT and confirmed on renal US. Secondary to atonic bladder. * Urology managing. * Chronic indwelling urinary catheter placed 08/26/22 and to be continued on discharge. * Repeat US showed improvement. 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 Managed by Urology. (4) Acute kidney injury superimposed on chronic kidney disease: Code(s): N17.9 - Acute kidney failure, unspecified; N18.9 - Chronic kidney disease, unspecified Status: Acute Assessment and Plan: Acute injury on chronic disease, stage 3b. Likely due to volume depletion from poor appetite and possible acute infection. * Treated with IV fluids at rate of 65 * 08/25/22 BUN 21, creatinine 1.1, GFR 48 and near baseline. * Trend renal function. * Stable (5) Gross hematuria: Code(s): R31.0 - Gross hematuria Status: Resolved Assessment and Plan: * Urology managing. * Trend H/H stable. * Holding ASA and lovenox. * Outpatient cystoscopy for evaluation recommended. (6) Uncontrolled type 2 diabetes mellitus with hyperglycemia, with long-term current use of insulin: Code(s): E11.65 - Type 2 diabetes mellitus with hyperglycemia; Z79.4 - intermediate (current) use of insulin Status: Acute Assessment and Plan: Chronic, insulin dependent. A1c 9.2% 08/21/22. * Continue basal Lantus 45 U and aspart high-dose sliding scale insulin TID meals and HS. * Hypoglycemic protocols * Accu-Cheks a.c. HS * Adjust basal-bolus insulin as needed to keep glucose <200 mg/dL. * Blo
--- NOTE | 2022-08-29 15:46 | PM.IMPN ---
Progress Note: A&P Assessment and Plan (1) Urinary tract infection: Qualifiers: Hematuria presence: with hematuria Urinary tract infection type: acute cystitis Qualified Code(s): N30.01 - Acute cystitis with hematuria Code(s): N39.0 - Urinary tract infection, site not specified Status: Acute Assessment and Plan: Patient presented to [facility] ED with c/o weakness. UA with 3+ leukocytes, >100 WBC, 3+ blood, no nitrates, many epi cells, no bacteria, 3+ protein and blood. C/o urinary frequency and urgency. She was treated with dose IV 1g ceftriaxone 08/21 in the ED. Patient was transitioned to oral cefdinir 08/21/22 urine culture without growth. Previous urine culture showed klebsiella aerogenes (enterobactor) resistant to ceftriaxone, augmentin, zosyn, cefazolin and intermediate to macrobid and ceftazidime. 08/25/22 patient still with hematuria and +suprapubic tenderness noted on exam. Repeat UA 2+ bacteria, mod epi cells, 3+ leukocytes, 3+ blood, >100 RBC & WBC urology consulted and appreciate recommendations. 08/25/22 repeat urine culture still without growth. 08/25/22 stopped cefdinir given previous culture was resistant to Rocephin. Given cefepime IV, renally dosed, given prior cultures 08/25- 08/27/22. Transition to oral Levaquin 500 mg Q48 hours (renally dosed) for total 7 day antibiotic therapy. 08/25/22 CT abd/pelvis concerning for diffuse cystitis, possible ascending infection, and new mild to moderate bilateral hydronephrosis Attempt tighter glucose control as below Levaquin to be completed 08/31/22 Urine is clear via yoo. (2) Hydronephrosis: Qualifiers: Hydronephrosis type: other Qualified Code(s): N13.39 - Other hydronephrosis Code(s): N13.30 - Unspecified hydronephrosis Status: Acute Assessment and Plan: B/L hydronephrosis noted on CT and confirmed on renal US. Secondary to atonic bladder. Urology managing. Chronic indwelling urinary catheter placed 08/26/22 and to be continued on discharge. Repeat US showed improvement. 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 Managed by Urology. (4) Acute kidney injury superimposed on chronic kidney disease: Code(s): N17.9 - Acute kidney failure, unspecified; N18.9 - Chronic kidney disease, unspecified Status: Acute Assessment and Plan: Acute injury on chronic disease, stage 3b. Likely due to volume depletion from poor appetite and possible acute infection. Treated with IV fluids at rate of 65 08/25/22 BUN 21, creatinine 1.1, GFR 48 and near baseline. Trend renal function. Stable (5) Gross hematuria: Code(s): R31.0 - Gross hematuria Status: Resolved Assessment and Plan: Urology managing. Trend H/H stable. Holding ASA and lovenox. Outpatient cystoscopy for evaluation recommended. 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 A1c 9.2% 08/21/22. Continue basal Lantus 45 U and aspart high-dose sliding scale insulin TID meals and HS. Hypoglycemic protocols Accu-Cheks a.c. HS Adjust basal-bolus insulin as needed to keep glucose <200 mg/dL. Blood sugars 08/24/22 168 to 168 to 262 to 265 with approx 52 units basal-bolus insulin given; 08/25 156 to 251 to 249 to 302 with approx 57 units basal-bolus insulin given. pt takes 45 units lantus daily in am. Will adjust meal time insulin to 4 units with meals with moderate dose sliding scale for now and continue to adjust every 2-3 days pending patient response and avoid hypoglycemia. Consistent carb diet 08/27/22 Improving,
[2022-08-29 17:26] LABS: Glucose Point of Care 164 mg/dl (65-105)
[2022-08-29 20:00] VITALS: PULSE 86; RESP 16; O2SAT 99
[2022-08-29 20:06] VITALS: BP 101/42; PULSE 86; RESP 16; TEMP 36.7; O2SAT 99
[2022-08-29 20:20] LABS: Glucose Point of Care 210 mg/dl (65-105)
[2022-08-29] MEDS: MELATONIN 5 MG TABLET PO (21:56)
[2022-08-30] MEDS: BENZOCAINE 20% HEMORRHOIDAL OINTMENT 28 GM 1 APPLIC TOPICAL ×2 (02:06→06:52)
[2022-08-30 04:06] VITALS: BP 92/58; PULSE 80; RESP 16; TEMP 36.6; O2SAT 97
[2022-08-30 06:03] LABS: Basophils Absolute Auto 0.1 K/mm3 (0.0-0.1); Basophils Percent Auto 0.4 % (0.2-1.2); Eosinophils Absolute Auto 0.2 K/mm3 (0-0.3); Eosinophils Percent Auto 0.8 % (0-4.4); Hemoglobin 10.8 g/dL (12.0-15.0); Immature Granulocyte Absolute 0.18 K/mm3 (0.00-0.031); Immature Granulocyte Percent A 0.9 % (0-0.5); Lymphocytes Absolute Auto 1.01 K/mm3 (0.9-3.2); Lymphocytes Percent Auto 5.3 % (18.3-44.2); Mean Corpuscular HGB Conc 32.7 g/dl (32-36); Mean Corpuscular Hemoglobin 29.3 pg (26-34); Mean Corpuscular Volume 89.7 fl (80-100); Monocytes Absolute Auto 1.7 K/mm3 (0.1-0.6); Neutrophils Percent Auto 83.6 % (45.5-73.1); Platelet Count Result 344 k/mm3 (150-375); Red Blood Count 3.68 M/mm3 (4.2-5.4); Red Cell Distribution Width 12.2 % (11.5-14.5); White Blood Count 19.1 K/mm3 (4.5-10.0)
[2022-08-30 06:35] LABS: Procalcitonin 0.2 ng/mL
[2022-08-30 06:36] LABS: CRP 14.3 mg/dL (<1.0)
[2022-08-30 08:00] VITALS: PULSE 80; RESP 16; O2SAT 97
[2022-08-30] MEDS: ACETAMINOPHEN 325 MG TABLET 650 MG PO (08:07)
[2022-08-30] MEDS: ASPIRIN 81 MG CHEWABLE TABLET PO (08:08)
[2022-08-30] MEDS: lisinopriL 10 MG TABLET PO (08:08)
[2022-08-30] MEDS: FERROUS SULFATE 324 MG TABLET PO (08:08)
[2022-08-30] MEDS: levoFLOXacin 500 MG TABLET PO (08:08)
[2022-08-30] MEDS: MULTIVITAMINS THERAPEUTIC TAB (*BKC) 1 TABLET PO (08:08)
[2022-08-30] MEDS: ROSUVASTATIN 10 MG TABLET 20 MG PO (08:08)
[2022-08-30] MEDS: FAMOTIDINE 10 MG TABLET PO (08:09)
[2022-08-30] MEDS: INSULIN GLARGINE (*BKC) 100 UNITS/ML 45 UNITS SUB-Q (08:17)
[2022-08-30] MEDS: INSULIN ASPART (*BKC) 100 UNITS/ML SUB-Q ×5 (08:17→16:52)
[2022-08-30 08:29] LABS: Glucose Point of Care 165 mg/dl (65-105)
[2022-08-30 11:42] VITALS: BMI 33.0
[2022-08-30 11:54] LABS: Glucose Point of Care 255 mg/dl (65-105)
--- NOTE | 2022-08-30 15:43 | P.DS_ITS ---
DS: Admitting Diagnosis Discharge Date 08/30/2022 Admitting Diagnosis Acute cystitis with hematuria Acute kidney injury superimposed on chronic kidney disease Uncontrolled type 2 diabetes mellitus with hyperglycemia, with long-term current use of insulin Generalized weakness Acute hyperkalemia Hyponatremia Combined systolic and diastolic congestive heart failure, chronic DS: Discharge Diagnosis Discharge Diagnosis (1) Urinary tract infection: Qualifiers: Hematuria presence: with hematuria Urinary tract infection type: acute cystitis Qualified Code(s): N30.01 - Acute cystitis with hematuria Code(s): N39.0 - Urinary tract infection, site not specified Status: Acute Assessment and Plan: Patient presented to [facility] ED with c/o weakness. UA with 3+ leukocytes, >100 WBC, 3+ blood, no nitrates, many epi cells, no bacteria, 3+ protein and blood. C/o urinary frequency and urgency. * She was treated with dose IV 1g ceftriaxone 08/21 in the ED. Patient was transitioned to oral cefdinir * 08/21/22 urine culture without growth. Previous urine culture showed klebsiella aerogenes (enterobactor) resistant to ceftriaxone, augmentin, zosyn, cefazolin and intermediate to macrobid and ceftazidime. * 08/25/22 patient still with hematuria and +suprapubic tenderness noted on exam. Repeat UA 2+ bacteria, mod epi cells, 3+ leukocytes, 3+ blood, >100 RBC & WBC * 08/25/22 repeat urine culture still without growth on 08/27/22. * 08/25/22 stopped cefdinir given previous culture was resistant to Rocephin. Given cefepime IV, renally dosed, given prior cultures 08/25- 08/27/22. Transition to oral Levaquin 500 mg Q48 hours (renally dosed) for total 7 day antibiotic therapy. Last dose 08/30/22 * 08/25/22 CT abd/pelvis concerning for diffuse cystitis, possible ascending infection, and new mild to moderate bilateral hydronephrosis. Urology consulted for evaluation. * Attempt tighter glucose control as below * Hematuria resolved with yoo, antibiotics and holding asa/DVT dosed lovenox (2) Hydronephrosis: Qualifiers: Hydronephrosis type: other Qualified Code(s): N13.39 - Other hydronephrosis Code(s): N13.30 - Unspecified hydronephrosis Status: Acute Assessment and Plan: B/L hydronephrosis noted on CT and confirmed on renal US. Secondary to atonic bladder. * Urology managing. * Chronic indwelling urinary catheter placed 08/26/22 and to be continued on discharge. * Repeat US showed improvement. 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 Managed by Urology. (4) Acute kidney injury superimposed on chronic kidney disease: Code(s): N17.9 - Acute kidney failure, unspecified; N18.9 - Chronic kidney disease, unspecified Status: Acute Assessment and Plan: Acute injury on chronic disease, stage 3b. Likely due to volume depletion from poor appetite and possible acute infection. * Treated with IV fluids at rate of 65 * 08/25/22 BUN 21, creatinine 1.1, GFR 48 and near baseline. * Trended renal function. * Stable (5) Gross hematuria: Code(s): R31.0 - Gross hematuria Status: Resolved Assessment and Plan: * Urology managing. * Trend H/H stable. * Holding ASA and lovenox. * Outpatient cystoscopy for evaluation recommended. (6) Uncontrolled type 2 diabetes mellitus with hyperglycemia, with long-term current use of
--- NOTE | 2022-08-30 15:43 | PM.DS ---
DS: Admitting Diagnosis Discharge Date 08/30/2022 Admitting Diagnosis Acute cystitis with hematuria Acute kidney injury superimposed on chronic kidney disease Uncontrolled type 2 diabetes mellitus with hyperglycemia, with long-term current use of insulin Generalized weakness Acute hyperkalemia Hyponatremia Combined systolic and diastolic congestive heart failure, chronic DS: Discharge Diagnosis Discharge Diagnosis (1) Urinary tract infection: Qualifiers: Hematuria presence: with hematuria Urinary tract infection type: acute cystitis Qualified Code(s): N30.01 - Acute cystitis with hematuria Code(s): N39.0 - Urinary tract infection, site not specified Status: Acute Assessment and Plan: Patient presented to [facility] ED with c/o weakness. UA with 3+ leukocytes, >100 WBC, 3+ blood, no nitrates, many epi cells, no bacteria, 3+ protein and blood. C/o urinary frequency and urgency. She was treated with dose IV 1g ceftriaxone 08/21 in the ED. Patient was transitioned to oral cefdinir 08/21/22 urine culture without growth. Previous urine culture showed klebsiella aerogenes (enterobactor) resistant to ceftriaxone, augmentin, zosyn, cefazolin and intermediate to macrobid and ceftazidime. 08/25/22 patient still with hematuria and +suprapubic tenderness noted on exam. Repeat UA 2+ bacteria, mod epi cells, 3+ leukocytes, 3+ blood, >100 RBC & WBC 08/25/22 repeat urine culture still without growth on 08/27/22. 08/25/22 stopped cefdinir given previous culture was resistant to Rocephin. Given cefepime IV, renally dosed, given prior cultures 08/25- 08/27/22. Transition to oral Levaquin 500 mg Q48 hours (renally dosed) for total 7 day antibiotic therapy. Last dose 08/30/22 08/25/22 CT abd/pelvis concerning for diffuse cystitis, possible ascending infection, and new mild to moderate bilateral hydronephrosis. Urology consulted for evaluation. Attempt tighter glucose control as below Hematuria resolved with yoo, antibiotics and holding asa/DVT dosed lovenox (2) Hydronephrosis: Qualifiers: Hydronephrosis type: other Qualified Code(s): N13.39 - Other hydronephrosis Code(s): N13.30 - Unspecified hydronephrosis Status: Acute Assessment and Plan: B/L hydronephrosis noted on CT and confirmed on renal US. Secondary to atonic bladder. Urology managing. Chronic indwelling urinary catheter placed 08/26/22 and to be continued on discharge. Repeat US showed improvement. 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 Managed by Urology. (4) Acute kidney injury superimposed on chronic kidney disease: Code(s): N17.9 - Acute kidney failure, unspecified; N18.9 - Chronic kidney disease, unspecified Status: Acute Assessment and Plan: Acute injury on chronic disease, stage 3b. Likely due to volume depletion from poor appetite and possible acute infection. Treated with IV fluids at rate of 65 08/25/22 BUN 21, creatinine 1.1, GFR 48 and near baseline. Trended renal function. Stable (5) Gross hematuria: Code(s): R31.0 - Gross hematuria Status: Resolved Assessment and Plan: Urology managing. Trend H/H stable. Holding ASA and lovenox. Outpatient cystoscopy for evaluation recommended. 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 A1c 9.2% 08/21/22. Continue basal Lantus 45 U and aspart high-dose sliding scale insulin TID meals and HS. Hypoglycemic protocols Accu-Cheks a.c. HS Adjust basal-bolus insulin as needed to keep glucose <200 mg/dL. Blood suga
[2022-08-30 16:30] VITALS: BP 115/39; PULSE 66; RESP 18; TEMP 36.4; O2SAT 100
[2022-08-30 16:51] LABS: Glucose Point of Care 237 mg/dl (65-105)
[2022-08-30 17:17] LABS: EDCOVIDSCREEN Negative (Negative)
== END 2022-08-30 17:45 | DRG 690 ==
LOC: ANHED 08-22 00:11 → ANH2MED 08-22 00:50
PROVIDERS: Internal Medicine; Internal Medicine Critical Care Medicine; Physician Assistant; Admitting Provider Internal Medicine; Emergency Provider Emergency Medicine; PCP Family Medicine; Visit Provider Nurse Practitioner Family
DX: N30.01 Acute cystitis with hematuria (principal); N13.39 Other hydronephrosis; N17.9 Acute kidney failure, unspecified; I13.0 Hypertensive heart and chronic kidney disease with heart failure and stage 1 through stage 4 chronic kidney disease, or unspecified chronic kidney disease; I50.42 Chronic combined systolic (congestive) and diastolic (congestive) heart failure; N31.2 Flaccid neuropathic bladder, not elsewhere classified; N18.32 Chronic kidney disease, stage 3b; E11.65 Type 2 diabetes mellitus with hyperglycemia; E11.22 Type 2 diabetes mellitus with diabetic chronic kidney disease; E87.5 Hyperkalemia; T50.995A Adverse effect of other drugs, medicaments and biological substances, initial encounter; I25.10 Atherosclerotic heart disease of native coronary artery without angina pectoris; J44.9 Chronic obstructive pulmonary disease, unspecified; G47.33 Obstructive sleep apnea (adult) (pediatric); Z20.822 Contact with and (suspected) exposure to COVID-19; Z95.810 Presence of automatic (implantable) cardiac defibrillator; Z87.891 Personal history of nicotine dependence; Z79.4 Long term (current) use of insulin; Z79.899 Other long term (current) drug therapy
CPT/HCPCS: 36415; 71045; 71250; 74018; 74176; 74178; 76775; 80048; 80053; 80069; 81001; 82533; 82570; 82607; 82746; 82948; 83036; 83540; 83550; 84145; 84300; 84443; 85025; 85027; 85046; 86140; 87086; 87426; 87637; 93005; 96361; 96365; 96366; 96372; 96375; 97110; 97161; 97165; 97530; 97535; 99285; A9270; C9803; G0378; J0692; J0696; J1650; J1756; J1815; J2405; J7030; Q9967

== ENCOUNTER 2022-09-10 22:39 | Inpatient (IN) | payer MEDICARE, BC, SELFPAY ==
--- NOTE | ~2022-09-10 | CT_ITS ---
EXAMINATION: CT brain wo con DATE: 09/10/2022 23:14 INDICATION: Altered mental status TECHNIQUE: Computed tomography (CT) of the head was performed without intravenous contrast. The mA wa s adjusted according to patient size. Iterative reconstruction technique was employed. Exam dose: 60 5.33 mGy-cm total exam DLP. COMPARISON: 02/17/2022 CT brain FINDINGS: Left vertebral artery and bilateral carotid siphon internal carotid artery calcifications. There is nonspecific diminished attenuation of the cerebral white matter, likely due to chronic small vessel ischemic changes. Technical and cortical cerebral and cerebellar atrophy. No intracranial mass lesion or hemorrhage or cerebrovascular accident is detected. No midline shift o r mass effect. No subdural or epidural hematoma. The orbital contents are unremarkable. Old blowout fracture of the medial wall of the right orbit. No skull fracture or bone destruction is detected. The mastoid air cells are normally developed and aerated. There is fluid or mucoperiosteal thickening in the dependent posterior left sphenoid sinus. Included paranasal sinuses are otherwise unremarkable. IMPRESSION: Cerebral atherosclerosis and chronic small vessel ischemic changes of the cerebral white matter Central and cortical cerebral and cerebellar atrophy Old right medial wall orbital blowout fracture No acute intracranial finding Reviewed, dictated and finalized at [facility]. Reviewed, dictated and finalized at [facility].
--- NOTE | ~2022-09-10 | XR_ITS ---
XR chest 1V portable DATE: 09/10/2022 23:19 INDICATION: Altered mental status TECHNIQUE: Portable AP chest on 09/10/2022 at 2315 hours COMPARISON: 08/2022 CT chest abdomen pelvis 08/21/2022 portable AP chest FINDINGS: Left transvenous pacemaker/defibrillator device with leads overlying right atrium and right ventricle. Heart size appears within normal range. No pulmonary vascular congestion is evident. There is mild in filtrate or atelectasis at the left lung base. The lungs otherwise appear clear. No pleural effusion or pulmonary vascular congestion or pneumothorax. Diffuse osteopenia. Thoracolumbar dextroscoliosis. IMPRESSION: Mild left basilar infiltrate or atelectasis Reviewed, dictated and finalized at [facility].
--- NOTE | ~2022-09-10 | CT_ITS ---
EXAMINATION: CT abdomen pelvis w con DATE: 09/11/2022 01:43 INDICATION: Abdominal pain, vomiting. TECHNIQUE: Computed tomography (CT) of the abdomen and pelvis was performed with 100 CC Omnipaque 350 intravenous contrast. Automated exposure control and iterative reconstruction technique were employe d. Exam dose: 1049.25 mGy-cm total exam DLP. COMPARISON: 08/30/2022 CT chest abdomen pelvis FINDINGS: There is mild bilateral lower lobe dependent atelectasis. Pacemaker leads are noted. No per icardial or pleural effusion. There are multiple faceted gallstones. Gallbladder wall thickness is within normal range. No perichol ecystic fluid or fat stranding is noted. No bile duct or pancreatic duct dilatation is noted. 2 cm medial segment left hepatic cyst. The liver, spleen, pancreas and adrenal glands are otherwise u nremarkable. There is mild perinephric fluid and lateral perinephric fat stranding. There is bilateral pelviectasi s and mild hydronephrosis. There is thickening of the wall of the renal pelves and ureters and periur eteral stranding. There is very prominent thickening of the urinary bladder wall. The bladder is evac uated, the Stafford catheter in place. There is mild fat stranding around the bladder. Findings are cons istent with cystitis and bilateral ascending pyelonephritis. Small cyst of the upper pole of the left kidney. There is atherosclerotic calcification of the abdominal aorta and iliac arteries but no aneurysm. No intraperitoneal or retroperitoneal or pelvic mass lesion or adenopathy or ascites is noted. No bowel obstruction, bowel wall thickening, pneumatosis or intraperitoneal free air is detected. Degenerative changes of the thoracic and lumbar spine. No suspicious osteolytic or osteoblastic lesio ns are noted. IMPRESSION: Cystitis and bilateral ascending pyelonephritis Cholelithiasis Hepatic cyst Small cyst of left kidney Reviewed, dictated and finalized at [facility]. Reviewed, dictated and finalized at location [facility].
[2022-09-10 22:46] LABS: Glucose Point of Care 235 mg/dl (65-105)
[2022-09-10 22:49] VITALS: BP 107/29; PULSE 86; RESP 32; TEMP 36.6; O2SAT 96
[2022-09-10 22:54] VITALS: PULSE 85
[2022-09-10 23:43] LABS: Basophils Absolute Auto 0.1 K/mm3 (0.0-0.1); Basophils Percent Auto 0.5 % (0.2-1.2); Eosinophils Absolute Auto 0.1 K/mm3 (0-0.3); Eosinophils Percent Auto 0.6 % (0-4.4); Hematocrit 33.2 % (37.0-47.0); Hemoglobin 10.6 g/dL (12.0-15.0); Immature Granulocyte Absolute 0.06 K/mm3 (0.00-0.031); Immature Granulocyte Percent A 0.4 % (0-0.5); Lymphocytes Absolute Auto 0.97 K/mm3 (0.9-3.2); Lymphocytes Percent Auto 6.9 % (18.3-44.2); Mean Corpuscular HGB Conc 31.9 g/dl (32-36); Mean Corpuscular Hemoglobin 29.1 pg (26-34); Mean Corpuscular Volume 91.2 fl (80-100); Mean Platelet Volume 8.6 fl (7.4-10.4); Monocytes Absolute Auto 1.5 K/mm3 (0.1-0.6); Monocytes Percent Auto 10.7 % (2.6-8.5); Neutrophils Absolute Auto 11.4 K/mm3 (1.3-6.7); Neutrophils Percent Auto 80.9 % (45.5-73.1); Platelet Count Result 358 k/mm3 (150-375); Red Blood Count 3.64 M/mm3 (4.2-5.4); Red Cell Distribution Width 12.2 % (11.5-14.5); White Blood Count 14.1 K/mm3 (4.5-10.0)
[2022-09-10 23:57] LABS: Alanine Aminotransferase 40 U/L (6-35); Albumin Level 2.9 g/dL (3.5-5.1); Alkaline Phosphatase 103 U/L (38-126); Anion Gap 5 mmol/L (8-16); Aspartate Amino Transferase 25 U/L (14-36); Bilirubin,Total 0.9 mg/dL (0.2-1.3); Blood Urea Nitrogen 17 mg/dL (7-17); Calcium 7.6 mg/dL (8.4-10.2); Carbon Dioxide 26 mmol/L (22-30); Chloride 99 mmol/L (98-107); Estimated Glomerular Filt Rate 40; Glucose 205 mg/dL (65-110); Lipase 59 U/L (23-300); Sodium 130 mmol/L (137-145)
[2022-09-11] VITALS (23 sets, daily range): BP systolic 99–128; BP diastolic 33–50; PULSE 53–81; RESP 14–30; TEMP 36–37.1; O2SAT 94–100; BMI 31.3
[2022-09-11] LABS: Appearance Urine Turbid (Clear); Bacteria Urine Rare /hpf; Bilirubin Urine Negative (Negative); Blood Urine 3+ (Negative); Color Urine Yellow (Yellow); Glucose Urine UA Negative (Negative); Ketones Urine Negative (Negative); Leukocyte Esterase Ur 3+ LEU/UL (Negative); Need Manual Microscopic Reviewed; Nitrate Urine Negative (Negative); Protein Urine 3+ mg/dL (Negative); Specific Grav Ur 1.013 (1.001-1.035); Squamous Epithelial Cell Urine Moderate /hpf (Few); WBC Urine >100 /hpf
--- NOTE | 2022-09-11 | ECG_ITS ---
Measurements Intervals [place] Rate: 80 P: 27 VT: 147 QRS: -24 QRSD: 150 T: 62 QT: 439 QTc: 509 Interpretive Statements SINUS RHYTHM RIGHT BUNDLE BRANCH BLOCK [120+ ms QRS DURATION, UPRIGHT V1, 40+ ms S IN I/aVL/V4/V5/V6] SEPTAL MYOCARDIAL INFARCTION , OF INDETERMINATE AGE [40+ ms Q WAVE IN V1/V2] ABNORMAL ECG COMPARED TO ECG 08/28/2022 09:18:38 NO SIGNIFICANT CHANGES Electronically Signed On 09-11-2022 9:16:51 CDT by Jaden Skinner M.D.
--- NOTE | 2022-09-11 00:03 | PC.NURSE ---
Patient is able to tell staff where she is now, her , and the date.
[2022-09-11 00:08] LABS: NT Pro B Type Natriuretic Pept 5610 pg/mL (19.9-100); Troponin I 0.022 ng/mL (0.000-0.034)
[2022-09-11 00:13] LABS: Add Urine Microscopic? YES
--- NOTE | 2022-09-11 00:21 | PC.NURSE ---
Patient's blood pressure is 89/36. Notified Dr. Medel who advised to give patient another liter of normal saline.
[2022-09-11] MEDS: SODIUM CHLORIDE 0.9% IV 1,000 ML 999 ML IV CONT (00:26)
[2022-09-11 00:47] LABS: Procalcitonin 0.2 ng/mL
[2022-09-11 01:07] LABS: Lactic Acid Reflex 0.8 mmol/L (0.7-2.0)
[2022-09-11] MEDS: ONDANSETRON INJ 4 MG/2 ML VIAL IV PUSH (01:14)
[2022-09-11 01:47] LABS: INR 1.2; Partial Thromboplastin Time 28.6 SECONDS (22.3-36.8); Prothrombin Time 16.1 Seconds (11.1-14.7)
--- NOTE | 2022-09-11 01:58 | ED.GENADULT ---
HPI - General Adult General Chief complaint: Altered Mental Status Stated complaint: ams Time Seen by Provider: 09/10/22 22:54 History of Present Illness HPI narrative: Patient is a 81-year-old female who presents emergency department with chief complaint of altered mental status. Patient is a resident of a local nursing facility and they noticed that she was less active than normal and noticed that she has been somewhat confused. States they were concerned that she may have an infection as her blood sugars have been running high and her blood pressures were a little lower. The patient reports no trauma Related Data Home Medications Medication Instructions Recorded Confirmed calcium carbonate 500 mg-vitamin 1 tablet PO DAILY 04/03/19 09/02/22 D3 10 mcg (400 unit) tablet (Calcium 500 + D) multivitamin 1 tablet PO DAILY 10/01/19 09/02/22 aspirin 81 mg tablet 81 mg PO DAILY 08/22/22 09/02/22 Allergies Allergy/AdvReac Type Severity Reaction Status Date / Time No Known Allergies Allergy Unknown Verified 08/22/22 01:38 Review of Systems Review of Systems: A 10 system review of systems was completed on the patient and is negative except for what is stated in the HPI. Nursing and ancillary documentation was reviewed. [facility] Past Medical History Medical History Anxiety Arthritis B12 deficiency BPPV (benign paroxysmal positional vertigo) CAD (coronary artery disease) Chronic constipation Chronic hyponatremia Chronic lower back pain CKD (chronic kidney disease) stage 3, GFR 30-59 ml/min Closed fracture of right humerus (09/2019) Combined systolic and diastolic congestive heart failure Echocardiogram 01/2022: EF 35-40%, grade 1 diastolic dysfunction, technically difficult study COPD with asthma COVID-19 (~01/2022) Depression Diabetic peripheral neuropathy Eczema Frequent UTI Gallstone pancreatitis (02/04/22) Gastric ulcer Resulting in GI bleed 01/2022 Gout Hyperlipidemia Hypertension Insomnia CONTRERAS (nonalcoholic steatohepatitis) Noted on ultrasound in 2011 NSTEMI (non-ST elevated myocardial infarction) Obstructive sleep apnea Mostly noncompliant with CPAP use Osteoarthritis Peripheral artery disease Portal vein thrombosis (01/2022) Not treated due to active GI bleed of the time Reflux esophagitis Seasonal allergies Type 2 diabetes mellitus Historically uncontrolled hemoglobin A1c 9% on 08/21/2022 Vitamin D deficiency Surgical History Surgical History Gastric bypass status for obesity (~2001) History of appendectomy History of total hysterectomy with bilateral salpingo-oophorectomy (BSO) For benign disease History of ventral hernia repair Post-op changes noted on CT Hx of heart artery stent ICD (implantable cardioverter-defibrillator) in place (~2011) Status post panniculectomy Family History Family History Father Heart disease Acute myocardial infarction Arthritis Patient's father is Diabetes mellitus Mother Heart disease Acute myocardial infarction Arthritis Hypertension Diabetes mellitus CHF (congestive heart failure) Obesity Sibling Heart disease Obesity Sibling Family history of malignant neoplasm Social History Social History Social History: Lidia Ortega lives at her home with her son. She is retired. She is a former smoker and believes she quit approximately 13 years ago. 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 Code status: Full code Healthcare power of real estate attorney: Daughter Smoking packs per day: 2 Smoking cigarettes per day: 40.0 Years smoked: 50 Smoking pack-years: 100.00 Smoking status: Former smoker Tobacco type: cigarettes Second holliday
--- NOTE | 2022-09-11 02:44 | PM.IMHP ---
H&P: HPI History of Present Illness Date/Time: 09/11/22 02:44 Chief Complaint: AMS Narrative: 81-YEAR-OLD FEMALE WITH PAST MEDICAL HISTORY SIGNIFICANT FOR INSULIN-DEPENDENT DIABETES MELLITUS, HYPERTENSION, DYSLIPIDEMIA, chronic indwelling Stafford catheter. Patient resides at [facility] facility she was brought for evaluation due to altered mental status, patient is unable to give much history which has been obtained mainly from son who is at bedside apparently patient has been not feeling well for the last 5 days or so has been sleeping,, confused, poor per orally intake. In emergency room patient was found to have a urinalysis with numerous WBCs present. Patient is been admitted further evaluation management and treatment. EXAMINATION: CT brain wo con DATE: 09/10/2022 23:14 INDICATION: Altered mental status TECHNIQUE: Computed tomography (CT) of the head was performed without intravenous contrast. The mA was adjusted according to patient size. Iterative reconstruction technique was employed. Exam dose:? 605.33 mGy-cm total exam DLP.? COMPARISON: 02/17/2022 CT brain FINDINGS: Left vertebral artery and bilateral carotid siphon internal carotid artery calcifications. There is nonspecific diminished attenuation of the cerebral white matter, likely due to chronic small vessel ischemic changes. Technical and cortical cerebral and cerebellar atrophy. No intracranial mass lesion or hemorrhage or cerebrovascular accident is detected. No midline shift or mass effect. No subdural or epidural hematoma. The orbital contents are unremarkable. Old blowout fracture of the medial wall of the right orbit. No skull fracture or bone destruction is detected. The mastoid air cells are normally developed and aerated. There is fluid or mucoperiosteal thickening in the dependent posterior left sphenoid sinus. Included paranasal sinuses are otherwise unremarkable. IMPRESSION:? Cerebral atherosclerosis and chronic small vessel ischemic changes of the cerebral white matter Central and cortical cerebral and cerebellar atrophy Old right medial wall orbital blowout fracture No acute intracranial finding EXAMINATION: CT abdomen pelvis w con DATE: 09/11/2022 01:43 INDICATION: Abdominal pain, vomiting. TECHNIQUE: Computed tomography (CT) of the abdomen and pelvis was performed with 100 CC Omnipaque 350 intravenous contrast. Automated exposure control and iterative reconstruction technique were employed. Exam dose:? 1049.25 mGy-cm total exam DLP.? COMPARISON: 08/30/2022 CT chest abdomen pelvis FINDINGS: There is mild bilateral lower lobe dependent atelectasis. Pacemaker leads are noted. No pericardial or pleural effusion. There are multiple faceted gallstones. Gallbladder wall thickness is within normal range. No pericholecystic fluid or fat stranding is noted. No bile duct or pancreatic duct dilatation is noted. 2 cm medial segment left hepatic cyst. The liver, spleen, pancreas and adrenal glands are otherwise unremarkable. There is mild perinephric fluid and lateral perinephric fat stranding. There is bilateral pelviectasis and mild hydronephrosis. There is thickening of the wall of the renal pelves and ureters and periureteral stranding. There is very prominent thickening of the urinary bladder wall. The bladder is evacuated, the Stafford catheter in place. There is mild fat stranding around the bladder. Findings are consistent with cystitis and bilateral ascending pyelonephritis. Small cyst of the upper pole of the left kidney. There is atherosclerotic calcification of the abdominal aorta and iliac arteries but no aneurysm. No intraperitoneal or retroperitoneal or pelvic mass lesion or adenopathy or ascites is noted. No bowel obstruction, bowel wall thickening, pneumatosis or intraperitoneal free air is detected. Degenerative changes of the thoracic and lumbar spine. No suspicious osteolytic or osteoblastic lesions are noted. IMPRESSION:? Cystitis and bilateral ascending pyelon
[2022-09-11 03:12] LABS: Troponin I 0.022 ng/mL (0.000-0.034)
[2022-09-11] MEDS: SODIUM CHLORIDE 0.9% IV 1,000 ML 125 ML IV CONT (04:22)
--- NOTE | 2022-09-11 04:37 | ADMGEN ---
This patient, Lidia Ortega, was admitted to Medical Room 245-. Patient/family oriented to hospital policies and general routines including ID bracelet, bed and alarms, visiting hours, pain management, procedures, bathroom and other care routines, personal items, smoking policy, room service/diet, and visiting hours. Information on how to activate the Rapid Response Team has been discussed. Patient/Family are encouraged to report perceived risks to care and to ask questions if they do not understand what they are told or what they should do.
--- NOTE | 2022-09-11 07:38 | P.PNIM_ITS ---
Progress Note: A&P Assessment and Plan (1) Sepsis: Qualifiers: Sepsis type: sepsis due to unspecified organism Sepsis acute organ dysfunction status: without acute organ dysfunction Qualified Code(s): A41.9 - Sepsis, unspecified organism Code(s): A41.9 - Sepsis, unspecified organism Status: Acute Assessment and Plan: RR 32, WBC 14, CT scan suggests pyelonephritis, lactic acid 0.8, procal 0.2, CRP 8.3 * Given 2L NS fluids and Rocephin 1 gram in ED * Continue IV antibiotics * Blood and urine cultures. (2) Pyelonephritis, unspecified: Code(s): N12 - Tubulo-interstitial nephritis, not specified as acute or chronic Status: Acute Assessment and Plan: CT abd/pelvis with mild perinephric fat stranding to bilaterally with mild hydronephrosis with thickening of renal pelves & ureters, as well as thickening of the urinary bladder wall suggesting cystitis and b/l ascending pyelonephritis. * IV Rocephin started in ED first dose given 09/11 * 09/11 WBC decreased 11.2, CRP 8.3 and procalcitonin 0.2. * Blood and urine cultures pending * Continue PRN acetaminophen for fever/pain * Urology consulted (3) AMS (altered mental status): Qualifiers: Altered mental status type: somnolence Qualified Code(s): R40.0 - Somnolence Code(s): R41.82 - Altered mental status, unspecified Status: Acute Assessment and Plan: Likely secondary to sepsis * Continue IV antibiotics and IV fluids for treatment of infection. * ABG without evidence of hypercapnia. * Check ammonia, acetaminophen level and Utox * TSH, B12, Folic acid all checked last admission and within normal limits. * Patient received only vitamins and lisinopril this am. * Patient may have some underlying depression that may be contributing to hypersomnia. Check Geriatric Depression Scale when more awake. Consider Psychiatry evaluation. (4) Combined systolic and diastolic congestive heart failure: Qualifiers: Heart failure chronicity: chronic Qualified Code(s): I50.42 - Chronic combined systolic (congestive) and diastolic (congestive) heart failure Code(s): I50.40 - Unspecified combined systolic (congestive) and diastolic (congestive) heart failure Status: Chronic Assessment and Plan: Chronic, not in acute exacerbation. * 02/16 Echocardiogram showed LV enlargement w/moderate hypokinesia and EF 35- 40%, grade 1 diastolic. * patient appears euvolemic. * Daily weight * Continue monitoring intake and output * Holding lisinopril currently for soft BP. (5) Uncontrolled type 2 diabetes mellitus with hyperglycemia, with long-term current use of insulin: Code(s): E11.65 - Type 2 diabetes mellitus with hyperglycemia; Z79.4 - prison (current) use of insulin Status: Chronic Assessment and Plan: Chronic, blood glucose levels 200s, last A1c 9.2% 08/21/22 * continue basal-bolus insulin. * accu-check AC/HS, hypoglycemia protocol and aspart sliding scale insulin. * Consistent carb diet. * Adjust insulin as needed. (6) Generalized weakness: Code(s): R53.1 - Weakness Status: Acute Assessment and Plan: Likely secondary to acute illness. PT OT when clinically able to participate Plan CODE STATUS: FULL CODE Discharge disposition: from SNF Time Spent With Patient Time with patient: Greater than 35 minutes Subjective Date/time seen: 09/11/22 07:38 Interval history: Patient reports feeling tired and not w
--- NOTE | 2022-09-11 07:38 | PM.IMPN ---
Progress Note: A&P Assessment and Plan (1) Sepsis: Qualifiers: Sepsis type: sepsis due to unspecified organism Sepsis acute organ dysfunction status: without acute organ dysfunction Qualified Code(s): A41.9 - Sepsis, unspecified organism Code(s): A41.9 - Sepsis, unspecified organism Status: Acute Assessment and Plan: RR 32, WBC 14, CT scan suggests pyelonephritis, lactic acid 0.8, procal 0.2, CRP 8.3 Given 2L NS fluids and Rocephin 1 gram in ED Continue IV antibiotics Blood and urine cultures. (2) Pyelonephritis, unspecified: Code(s): N12 - Tubulo-interstitial nephritis, not specified as acute or chronic Status: Acute Assessment and Plan: CT abd/pelvis with mild perinephric fat stranding to bilaterally with mild hydronephrosis with thickening of renal pelves & ureters, as well as thickening of the urinary bladder wall suggesting cystitis and b/l ascending pyelonephritis. IV Rocephin started in ED first dose given 09/11 09/11 WBC decreased 11.2, CRP 8.3 and procalcitonin 0.2. Blood and urine cultures pending Continue PRN acetaminophen for fever/pain Urology consulted (3) AMS (altered mental status): Qualifiers: Altered mental status type: somnolence Qualified Code(s): R40.0 - Somnolence Code(s): R41.82 - Altered mental status, unspecified Status: Acute Assessment and Plan: Likely secondary to sepsis Continue IV antibiotics and IV fluids for treatment of infection. ABG without evidence of hypercapnia. Check ammonia, acetaminophen level and Utox TSH, B12, Folic acid all checked last admission and within normal limits. Patient received only vitamins and lisinopril this am. Patient may have some underlying depression that may be contributing to hypersomnia. Check Geriatric Depression Scale when more awake. Consider Psychiatry evaluation. (4) Combined systolic and diastolic congestive heart failure: Qualifiers: Heart failure chronicity: chronic Qualified Code(s): I50.42 - Chronic combined systolic (congestive) and diastolic (congestive) heart failure Code(s): I50.40 - Unspecified combined systolic (congestive) and diastolic (congestive) heart failure Status: Chronic Assessment and Plan: Chronic, not in acute exacerbation. 02/16 Echocardiogram showed LV enlargement w/moderate hypokinesia and EF 35-40%, grade 1 diastolic. patient appears euvolemic. Daily weight Continue monitoring intake and output Holding lisinopril currently for soft BP. (5) Uncontrolled type 2 diabetes mellitus with hyperglycemia, with long-term current use of insulin: Code(s): E11.65 - Type 2 diabetes mellitus with hyperglycemia; Z79.4 - longterm (current) use of insulin Status: Chronic Assessment and Plan: Chronic, blood glucose levels 200s, last A1c 9.2% 08/21/22 continue basal-bolus insulin. accu-check AC/HS, hypoglycemia protocol and aspart sliding scale insulin. Consistent carb diet. Adjust insulin as needed. (6) Generalized weakness: Code(s): R53.1 - Weakness Status: Acute Assessment and Plan: Likely secondary to acute illness. PT OT when clinically able to participate Plan CODE STATUS: FULL CODE Discharge disposition: from SNF Time Spent With Patient Time with patient: Greater than 35 minutes Subjective Date/time seen: 09/11/22 07:38 Interval history: Patient reports feeling tired and not well today. Nursing reports concern that the patient is not acting right and has been diaphoretics. VS- HR 60 NSR to tele, BP 119/42, spO2 94% RA, Temp 96.8F, no tachypnea. Review of Systems Review of Systems: ROS unobtainable: Yes unobtainable due to mental status (Limited due to lethargy) Exam Narrative: General: No acute distress. Tired appearing older adult female laying in bed. Neuro/Psych: Lethargic, oriented to person, place,
[2022-09-11] MEDS: FERROUS SULFATE 324 MG TABLET PO (08:06)
[2022-09-11] MEDS: FAMOTIDINE 10 MG TABLET PO (08:07)
[2022-09-11] MEDS: ASPIRIN 81 MG ENTERIC TABLET PO (08:07)
[2022-09-11] MEDS: MULTIVITAMINS THERAPEUTIC TAB (*BKC) 1 TABLET PO (08:08)
[2022-09-11] MEDS: lisinopriL 10 MG TABLET PO (08:08)
[2022-09-11] MEDS: ACETAMINOPHEN 325 MG TABLET 650 MG PO (08:19)
[2022-09-11 08:58] LABS: Basophils Absolute Auto 0.1 K/mm3 (0.0-0.1); Basophils Percent Auto 0.5 % (0.2-1.2); Eosinophils Absolute Auto 0.2 K/mm3 (0-0.3); Eosinophils Percent Auto 1.7 % (0-4.4); Hematocrit 30.6 % (37.0-47.0); Hemoglobin 9.6 g/dL (12.0-15.0); Immature Granulocyte Absolute 0.05 K/mm3 (0.00-0.031); Immature Granulocyte Percent A 0.4 % (0-0.5); Lymphocytes Absolute Auto 0.89 K/mm3 (0.9-3.2); Mean Corpuscular HGB Conc 31.4 g/dl (32-36); Mean Corpuscular Hemoglobin 28.7 pg (26-34); Mean Corpuscular Volume 91.6 fl (80-100); Mean Platelet Volume 8.8 fl (7.4-10.4); Monocytes Absolute Auto 1.4 K/mm3 (0.1-0.6); Monocytes Percent Auto 12.3 % (2.6-8.5); Neutrophils Absolute Auto 8.6 K/mm3 (1.3-6.7); Neutrophils Percent Auto 77.1 % (45.5-73.1); Platelet Count Result 344 k/mm3 (150-375); Red Blood Count 3.34 M/mm3 (4.2-5.4); Red Cell Distribution Width 12.4 % (11.5-14.5); White Blood Count 11.2 K/mm3 (4.5-10.0)
[2022-09-11 09:05] LABS: Creatine Kinase 38 U/L (30-135)
[2022-09-11 09:08] LABS: Anion Gap 2 mmol/L (8-16); Blood Urea Nitrogen 16 mg/dL (7-17); CRP 8.3 mg/dL (<1.0); Calcium 7.5 mg/dL (8.4-10.2); Carbon Dioxide 27 mmol/L (22-30); Chloride 102 mmol/L (98-107); Estimated CRCL calculation 32 ml/min; Estimated Glomerular Filt Rate 40; Glucose 188 mg/dL (65-110); Potassium 4.1 mmol/L (3.4-5.0); Sodium 131 mmol/L (137-145)
[2022-09-11 09:19] LABS: Glucose Point of Care 256 mg/dl (65-105)
[2022-09-11] MEDS: INSULIN ASPART (*BKC) 100 UNITS/ML SUB-Q ×6 (09:24→20:20)
[2022-09-11 10:25] LABS: Glucose Point of Care 250 mg/dl (65-105)
[2022-09-11 11:01] LABS: Alveolar/Arterial O2 Gradient 30.9 mmHg; Base Excess ABG -0.1 mEq/l (+/-2.0); Carboxyhemoglobin 0.3 % THb (0-2.0); Fractional Inspired Oxygen 21 %; HCO3 ABG 23.8 mEq/l (22.0-26.0); Methemoglobin ABG 0.2 %THb (0-1.5); Modified Allen's Test Pass; Oxygen Content ABG 13.8 %vol (16.0-22.0); Oxygen Saturation ABG 95.7 % (95.0-100.0); Oxyhemoglobin 94.1 % THb (90.0-100.0); PO2 ABG 75.7 mmHg (80.0-100.0); Reduced Hemoglobin 5.4 %THb (0-5.0); Site Drawn LEFT RADIAL; Total Hemoglobin 10.4 g/dL (12.0-18.0); pH ABG 7.439 (7.350-7.450)
--- NOTE | 2022-09-11 12:20 | WPDURCON ---
Assessment and Plan Assessment and plan (1) Pyelonephritis, unspecified: Code(s): N12 - Tubulo-interstitial nephritis, not specified as acute or chronic Status: Acute Assessment and Plan: - antibiotics per the medical team (2) Hydronephrosis: Qualifiers: Hydronephrosis type: other Qualified Code(s): N13.39 - Other hydronephrosis Code(s): N13.30 - Unspecified hydronephrosis Status: Acute Assessment and Plan: - keep Stafford catheter in place - will likely be able to do voiding trial Tuesday once culture results are available and confirmation of correct antibiotic treatment is available Urology Consult Note HPI Date Seen: 09/11/22 Requesting Physician: Marta Starr MD Primary Care Provider: Kurtis Layton MD Consult Narrative Narrative: Lidia Ortega is a 81 year old female with UTI and pyelonephritis. She had urinary retention and a catheter was placed. CT scan showed bladder and ureter thickening consistent with infection. No stones. Review of Systems Review of Systems: All systems reviewed & are unremarkable except as noted in HPI and below Constitutional: Constitutional: Reports fatigue and Reports lethargy Neurologic: Reports confusion Psychiatric: Psychiatric: Reports confusion PMFSH Past Medical History Medical History Anxiety Arthritis B12 deficiency BPPV (benign paroxysmal positional vertigo) CAD (coronary artery disease) Chronic constipation Chronic hyponatremia Chronic lower back pain CKD (chronic kidney disease) stage 3, GFR 30-59 ml/min Closed fracture of right humerus (09/2019) Combined systolic and diastolic congestive heart failure Echocardiogram 01/2022: EF 35-40%, grade 1 diastolic dysfunction, technically difficult study COPD with asthma COVID-19 (~01/2022) Depression Diabetic peripheral neuropathy Eczema Frequent UTI Gallstone pancreatitis (02/04/22) Gastric ulcer Resulting in GI bleed 01/2022 Gout Hyperlipidemia Hypertension Insomnia CONTRERAS (nonalcoholic steatohepatitis) Noted on ultrasound in 2011 NSTEMI (non-ST elevated myocardial infarction) Obstructive sleep apnea Mostly noncompliant with CPAP use Osteoarthritis Peripheral artery disease Portal vein thrombosis (01/2022) Not treated due to active GI bleed of the time Reflux esophagitis Seasonal allergies Type 2 diabetes mellitus Historically uncontrolled hemoglobin A1c 9% on 08/21/2022 Vitamin D deficiency Surgical History Surgical History Gastric bypass status for obesity (~2001) History of appendectomy History of total hysterectomy with bilateral salpingo-oophorectomy (BSO) For benign disease History of ventral hernia repair Post-op changes noted on CT Hx of heart artery stent ICD (implantable cardioverter-defibrillator) in place (~2011) Status post panniculectomy Family History Family History Father Heart disease Acute myocardial infarction Arthritis Patient's father is Diabetes mellitus Mother Heart disease Acute myocardial infarction Arthritis Hypertension Diabetes mellitus CHF (congestive heart failure) Obesity Sibling Heart disease Obesity Sibling Family history of malignant neoplasm Social History Social History Social History: Lidia Ortega lives at her home with her son. She is retired. She is a former smoker and believes she quit approximately 13 years ago. 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 Code status: Full code Healthcare power of assistant county attorney: Daughter Smoking packs per day: 1 Smoking cigarettes per day: 20.0 Years smoked: 50 Smoking pack-years: 50.00 Smoking status: Former smoker Tobacco type: cig
[2022-09-11 12:35] LABS: Glucose Point of Care 208 mg/dl (65-105)
[2022-09-11 13:51] LABS: Barbiturate Screen Urine Negative (Negative); Benzodiazepines Screen Urine Negative (Negative)
[2022-09-11 13:52] LABS: Amphetamine Screen Urine Negative (Negative); Cannabinoid Screen Urine Negative (Negative); Cocaine Screen Urine Negative (Negative); Methadone Screen Urine Negative (Negative); Phencyclidine Screen Urine Negative (Negative)
--- NOTE | 2022-09-11 15:02 | PCCCNOTE ---
On 09/11/22, the student, Cecille Vegas, provided care and completed [facility] documentation on this patient. I have reviewed the student's documentation and agree with the findings.
[2022-09-11 15:13] LABS: Acetaminophen < 10 ug/mL (10-30); Ammonia < 9 umol/L (9-30)
[2022-09-11] MEDS: SODIUM CHLORIDE 0.9% IV 1,000 ML 75 ML IV CONT (15:16)
[2022-09-11 15:35] LABS: Opiate Screen Urine Negative (Negative)
[2022-09-11 16:55] LABS: Glucose Point of Care 139 mg/dl (65-105)
[2022-09-11] MEDS: INSULIN GLARGINE (*BKC) 100 UNITS/ML 25 UNITS SUB-Q (20:21)
[2022-09-11 20:22] LABS: Glucose Point of Care 240 mg/dl (65-105)
[2022-09-11] MEDS: PANTOPRAZOLE 40 MG TABLET PO (20:22)
[2022-09-11] MEDS: ROSUVASTATIN 10 MG TABLET 20 MG PO (20:22)
[2022-09-12] VITALS (8 sets, daily range): BP systolic 111–151; BP diastolic 38–53; PULSE 62–75; RESP 16–18; TEMP 36.6–37.1; O2SAT 95–100
[2022-09-12] MEDS: SODIUM CHLORIDE 0.9% IV 1,000 ML 75 ML IV CONT (04:26)
[2022-09-12 05:04] LABS: Basophils Percent Auto 0.3 % (0.2-1.2); Eosinophils Absolute Auto 0.3 K/mm3 (0-0.3); Eosinophils Percent Auto 3.1 % (0-4.4); Hematocrit 27.7 % (37.0-47.0); Hemoglobin 8.7 g/dL (12.0-15.0); Immature Granulocyte Absolute 0.06 K/mm3 (0.00-0.031); Immature Granulocyte Percent A 0.7 % (0-0.5); Lymphocytes Absolute Auto 0.97 K/mm3 (0.9-3.2); Lymphocytes Percent Auto 10.7 % (18.3-44.2); Mean Corpuscular HGB Conc 31.4 g/dl (32-36); Mean Corpuscular Hemoglobin 28.4 pg (26-34); Mean Corpuscular Volume 90.5 fl (80-100); Mean Platelet Volume 8.7 fl (7.4-10.4); Monocytes Absolute Auto 1.1 K/mm3 (0.1-0.6); Monocytes Percent Auto 11.8 % (2.6-8.5); Neutrophils Absolute Auto 6.7 K/mm3 (1.3-6.7); Neutrophils Percent Auto 73.4 % (45.5-73.1); Platelet Count Result 311 k/mm3 (150-375); Red Blood Count 3.06 M/mm3 (4.2-5.4); Red Cell Distribution Width 12.5 % (11.5-14.5); White Blood Count 9.1 K/mm3 (4.5-10.0)
[2022-09-12 05:18] LABS: Anion Gap 0 mmol/L (8-16); Blood Urea Nitrogen 14 mg/dL (7-17); Calcium 7.6 mg/dL (8.4-10.2); Carbon Dioxide 28 mmol/L (22-30); Chloride 102 mmol/L (98-107); Estimated CRCL calculation 34 ml/min; Estimated Glomerular Filt Rate 43; Glucose 119 mg/dL (65-110); Sodium 130 mmol/L (137-145)
--- NOTE | 2022-09-12 07:36 | P.PNIM_ITS ---
Progress Note: A&P Assessment and Plan (1) Sepsis: Qualifiers: Sepsis acute organ dysfunction status: without acute organ dysfunction Sepsis type: sepsis due to unspecified organism Qualified Code(s): A41.9 - S epsis, unspecified organism Code(s): A41.9 - Sepsis, unspecified organism Status: Resolved Assessment and Plan: RR 32, WBC 14, CT scan suggests pyelonephritis, lactic acid 0.8, procal 0.2, CRP 8.3 * Given 2L NS fluids and Rocephin 1 gram in ED * Treated with IV antibiotics 09/10-09/11 * Blood cultures negative to date * urine culture mixed lacho, however, patient with evidence of pyelonephritis on CT so will continue treatment. * Hemodynamically stable. Afebrile. (2) Pyelonephritis, unspecified: Code(s): N12 - Tubulo-interstitial nephritis, not specified as acute or chronic Status: Acute Assessment and Plan: CT abd/pelvis with mild perinephric fat stranding to bilaterally with mild hydronephrosis with thickening of renal pelves & ureters, as well as thickening of the urinary bladder wall suggesting cystitis and b/l ascending pyelonephritis. * IV Rocephin started in ED first dose given 09/10-09/11 * 09/11 WBC decreased 11.2, CRP 8.3 and procalcitonin 0.2. * Continue PRN acetaminophen for fever/pain * Urology consulted and appreciate recommendations. * Urine culture mixed lacho. Leukocytosis resolved on antibiotics however. * 09/12 Change to Bactrim DS 1 tab BID x10 days after all cultures reviewed and noted to be sensitive. She may benefit from prophylaxis treatment with trimethoprim after treatment, but will defer to Urology. * 09/12 Blood cultures negative to date. (3) Generalized weakness: Code(s): R53.1 - Weakness Status: Acute Assessment and Plan: Likely secondary to acute illness versus severe depression. PT OT consulted. Encourage participation in activities. (4) AMS (altered mental status): Qualifiers: Altered mental status type: somnolence Qualified Code(s): R40.0 - Somnolence Code(s): R41.82 - Altered mental status, unspecified Status: Acute Assessment and Plan: Likely secondary to sepsis * Continue IV antibiotics and IV fluids for treatment of infection. * ABG without evidence of hypercapnia. * Check ammonia, acetaminophen level and Utox * TSH, B12, Folic acid all checked last admission and within normal limits. * Patient may have some underlying depression Geriatric Depression Scale long form score 27/30 suggesting severe depression. Continue SSRI just started and may not have had time to be effective. No SI. Consider outpatient referral to mental health provider for CBT. * Appears at baseline. (5) Combined systolic and diastolic congestive heart failure: Qualifiers: Heart failure chronicity: chronic Qualified Code(s): I50.42 - Chronic combined systolic (congestive) and diastolic (congestive) heart failure Code(s): I50.40 - Unspecified combined systolic (congestive) and diastolic (congestive) heart failure Status: Chronic Assessment and Plan: Chronic, not in acute exacerbation. * 02/16 Echocardiogram showed LV enlargement w/moderate hypokinesia and EF 35- 40%, grade 1 diastolic. * patient appears euvolemic. * Daily weight * Continue monitoring intake and output * Holding lisinopril currently for soft BP. (6) Uncontrolled type 2 diabetes mellitus with hyperglycemia, with long-term current use of insulin: Code(s): E11.65 - Type 2 diabetes mellitus with hyperglycemia; Z79.4 - termite inspector (current) use
--- NOTE | 2022-09-12 07:36 | PM.IMPN ---
Progress Note: A&P Assessment and Plan (1) Sepsis: Qualifiers: Sepsis acute organ dysfunction status: without acute organ dysfunction Sepsis type: sepsis due to unspecified organism Qualified Code(s): A41.9 - Sepsis, unspecified organism Code(s): A41.9 - Sepsis, unspecified organism Status: Resolved Assessment and Plan: RR 32, WBC 14, CT scan suggests pyelonephritis, lactic acid 0.8, procal 0.2, CRP 8.3 Given 2L NS fluids and Rocephin 1 gram in ED Treated with IV antibiotics 09/10-09/11 Blood cultures negative to date urine culture mixed lacho, however, patient with evidence of pyelonephritis on CT so will continue treatment. Hemodynamically stable. Afebrile. (2) Pyelonephritis, unspecified: Code(s): N12 - Tubulo-interstitial nephritis, not specified as acute or chronic Status: Acute Assessment and Plan: CT abd/pelvis with mild perinephric fat stranding to bilaterally with mild hydronephrosis with thickening of renal pelves & ureters, as well as thickening of the urinary bladder wall suggesting cystitis and b/l ascending pyelonephritis. IV Rocephin started in ED first dose given 09/10-09/11 09/11 WBC decreased 11.2, CRP 8.3 and procalcitonin 0.2. Continue PRN acetaminophen for fever/pain Urology consulted and appreciate recommendations. Urine culture mixed lacho. Leukocytosis resolved on antibiotics however. 09/12 Change to Bactrim DS 1 tab BID x10 days after all cultures reviewed and noted to be sensitive. She may benefit from prophylaxis treatment with trimethoprim after treatment, but will defer to Urology. 09/12 Blood cultures negative to date. (3) Generalized weakness: Code(s): R53.1 - Weakness Status: Acute Assessment and Plan: Likely secondary to acute illness versus severe depression. PT OT consulted. Encourage participation in activities. (4) AMS (altered mental status): Qualifiers: Altered mental status type: somnolence Qualified Code(s): R40.0 - Somnolence Code(s): R41.82 - Altered mental status, unspecified Status: Acute Assessment and Plan: Likely secondary to sepsis Continue IV antibiotics and IV fluids for treatment of infection. ABG without evidence of hypercapnia. Check ammonia, acetaminophen level and Utox TSH, B12, Folic acid all checked last admission and within normal limits. Patient may have some underlying depression Geriatric Depression Scale long form score 27/30 suggesting severe depression. Continue SSRI just started and may not have had time to be effective. No SI. Consider outpatient referral to mental health provider for CBT. Appears at baseline. (5) Combined systolic and diastolic congestive heart failure: Qualifiers: Heart failure chronicity: chronic Qualified Code(s): I50.42 - Chronic combined systolic (congestive) and diastolic (congestive) heart failure Code(s): I50.40 - Unspecified combined systolic (congestive) and diastolic (congestive) heart failure Status: Chronic Assessment and Plan: Chronic, not in acute exacerbation. 02/16 Echocardiogram showed LV enlargement w/moderate hypokinesia and EF 35-40%, grade 1 diastolic. patient appears euvolemic. Daily weight Continue monitoring intake and output Holding lisinopril currently for soft BP. (6) Uncontrolled type 2 diabetes mellitus with hyperglycemia, with long-term current use of insulin: Code(s): E11.65 - Type 2 diabetes mellitus with hyperglycemia; Z79.4 - ferry terminal agent (current) use of insulin Status: Chronic Assessment and Plan: Chronic, blood glucose levels 200s, last A1c 9.2% 08/21/22 continue basal-bolus insulin. accu-check AC/HS, hypoglycemia protocol and aspart sliding scale insulin. Consistent carb diet. Adjust insulin as needed. 09/12- Glucose levels past 24 hours: 188 fasting, 256 breakfast, 208 lunch, 139 supper, 240 HS; 09/12 119 fasting.
[2022-09-12] MEDS: ASPIRIN 81 MG ENTERIC TABLET PO (08:19)
[2022-09-12] MEDS: FERROUS SULFATE 324 MG TABLET PO (08:19)
[2022-09-12] MEDS: MULTIVITAMINS THERAPEUTIC TAB (*BKC) 1 TABLET PO (08:19)
[2022-09-12] MEDS: PANTOPRAZOLE 40 MG TABLET PO ×2 (08:19→20:33)
[2022-09-12 08:44] LABS: Glucose Point of Care 143 mg/dl (65-105)
[2022-09-12] MEDS: INSULIN ASPART (*BKC) 100 UNITS/ML 7 UNITS SUB-Q ×2 (09:44→17:33)
[2022-09-12 12:14] LABS: Glucose Point of Care 199 mg/dl (65-105)
--- NOTE | 2022-09-12 12:28 | PCPTNOTE ---
On 09/12/22, the student, [Francine Rodriguez], provided care and completed [facility] documentation on this patient. I have reviewed the student's documentation and agree with the findings.
[2022-09-12] MEDS: INSULIN ASPART (*BKC) 100 UNITS/ML SUB-Q (13:01)
[2022-09-12] MEDS: polyethylene glycoL 3350 17 GM POWD.PACK PO (13:03)
[2022-09-12] MEDS: SULFAMETHOXAZOLE/TRIMETHOPRIM 800/160 MG DS TABLET 1 TAB PO ×2 (13:22→20:33)
--- NOTE | 2022-09-12 13:52 | PC.NURSE ---
Daughter Tasia requesting review of patient's medications, asked why her citalopram and sleeping pill wasn't being given. Reached out to provider. Awaiting response.
[2022-09-12 17:23] LABS: Glucose Point of Care 169 mg/dl (65-105)
[2022-09-12 20:26] LABS: Glucose Point of Care 179 mg/dl (65-105)
[2022-09-12] MEDS: INSULIN GLARGINE (*BKC) 100 UNITS/ML 25 UNITS SUB-Q (20:33)
[2022-09-12] MEDS: ROSUVASTATIN 10 MG TABLET 20 MG PO (20:33)
[2022-09-13 04:55] VITALS: BP 140/50; PULSE 64; RESP 16; TEMP 37.1; O2SAT 100
[2022-09-13 05:43] LABS: Basophils Absolute Auto 0.1 K/mm3 (0.0-0.1); Basophils Percent Auto 0.6 % (0.2-1.2); Eosinophils Absolute Auto 0.3 K/mm3 (0-0.3); Eosinophils Percent Auto 3.2 % (0-4.4); Hematocrit 29.3 % (37.0-47.0); Hemoglobin 9.5 g/dL (12.0-15.0); Immature Granulocyte Absolute 0.04 K/mm3 (0.00-0.031); Immature Granulocyte Percent A 0.5 % (0-0.5); Lymphocytes Absolute Auto 1.11 K/mm3 (0.9-3.2); Lymphocytes Percent Auto 14.1 % (18.3-44.2); Mean Corpuscular HGB Conc 32.4 g/dl (32-36); Mean Corpuscular Hemoglobin 29.1 pg (26-34); Mean Corpuscular Volume 89.6 fl (80-100); Mean Platelet Volume 8.2 fl (7.4-10.4); Monocytes Absolute Auto 0.9 K/mm3 (0.1-0.6); Monocytes Percent Auto 10.9 % (2.6-8.5); Neutrophils Absolute Auto 5.6 K/mm3 (1.3-6.7); Neutrophils Percent Auto 70.7 % (45.5-73.1); Platelet Count Result 318 k/mm3 (150-375); Red Blood Count 3.27 M/mm3 (4.2-5.4); Red Cell Distribution Width 12.6 % (11.5-14.5); White Blood Count 7.9 K/mm3 (4.5-10.0)
[2022-09-13 06:03] LABS: Albumin Level 2.7 g/dL (3.5-5.1); Anion Gap 4 mmol/L (8-16); Blood Urea Nitrogen 13 mg/dL (7-17); CRP 5.9 mg/dL (<1.0); Calcium 8.1 mg/dL (8.4-10.2); Carbon Dioxide 30 mmol/L (22-30); Chloride 100 mmol/L (98-107); Estimated CRCL calculation 33 ml/min; Estimated Glomerular Filt Rate 40; Glucose 98 mg/dL (65-110); Magnesium 1.9 mg/dL (1.6-2.3); Phosphorus 4.5 mg/dL (2.5-4.5); Potassium 3.9 mmol/L (3.4-5.0); Sodium 134 mmol/L (137-145)
--- NOTE | 2022-09-13 08:11 | WPDUROPN2 ---
Progress Note: A&P Assessment and Plan (1) Pyelonephritis, unspecified: Code(s): N12 - Tubulo-interstitial nephritis, not specified as acute or chronic Status: Acute Assessment and Plan: Urine Culture and Blood cultures are negative. Repeat JAZMIN in 2-3 weeks to ensure pyelonephritis is resolved. Continue Ceftriaxone with an oral regimen of antibiotics of either Ciprofloxacin or Bactrim x 10 days at home after discharge. 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 I suggested she keep the yoo in and f/u in the office and try again in 7-10 days. If she fails a second time, we would recommend doing a Urodynamic study. Subjective Subjective Date/Time Seen: 09/13/22 08:11 Creatinine stable. Catheter in place, draining to gravity. CT 09/11/22 shows cystitis with bilateral ascending infection/pyelonephritis. Urine and Blood cultures Negative. Patient continues on Ceftriaxone. Review of Systems Cardiovascular: Cardiovascular: Denies chest pain Respiratory: Respiratory: Reports no additional respiratory complaints Genitourinary: Genitourinary: Denies nocturia, Denies dysuria, Denies pelvic pain, Denies flank pain, Denies urinary incontinence, Denies urinary hesitancy and Denies urinary urgency Exam Const: General: cooperative and comfortable Resp: Effort & Inspection: normal respiratory effort Cardio: Rate: regular rate GI: GI Palp: Yes Soft to palpation and No Tenderness to palpation present (GI) : General: Yes no CVA tenderness Urinary Catheter: Urinary Catheter: patent and draining and urine clear Extrem: Right lower extremity: no edema Left lower extremity: no edema Objective Data Vital Signs Vital Signs: Vital Signs - 24 hr 09/12/22 08:16 09/12/22 09:30 09/12/22 08:15 Temperature Pulse Rate 66 Respiratory Rate Blood Pressure 138/47 L Pulse Oximetry 96 Oxygen Delivery Room Air Room Air 09/12/22 09:15 09/12/22 14:00 09/12/22 12:00 Temperature 98.4 F Pulse Rate 75 67 Respiratory Rate 18 Blood Pressure 111/38 L Pulse Oximetry 98 Oxygen Delivery Room Air 09/12/22 20:03 09/12/22 20:00 09/13/22 04:55 Temperature 98 F 98.8 F Pulse Rate 65 64 Respiratory Rate 16 16 Blood Pressure 151/53 H 140/50 L Pulse Oximetry 100 100 Oxygen Delivery Room Air Intake/Output Intake/Output: Intake & Output 09/10/22 09/11/22 09/12/22 09/13/22 23:59 23:59 23:59 23:59 Intake Total 3810 2650 50 Output Total 1600 2300 1550 Balance 2210 350 -1500 Meds/Results Medications: Active Medications Generic Name Dose Route Start Last Admin Trade Name Freq PRN Reason Stop Dose Admin Acetaminophen 650 mg 09/11/22 04:48 09/11/22 08:19 Acetaminophen 325 Mg Tablet PO 650 mg Q6H PRN Administration Mild Pain (1-3) Or Fever Ascorbic Acid 500 mg 09/13/22 09:00 Ascorbic Acid 500 Mg Tablet PO DAILY [facility] Aspirin 81 mg 09/11/22 09:00 09/12/22 08:19 Aspirin 81 Mg Enteric Tablet PO 81 mg QAM [facility] Administration Benzocaine 1 applic 09/11/22 04:48 Benzocaine 20% Hemorrhoidal Ointment 28 Gm TOPICAL Q6H PRN Rectal Pain Bisacodyl 10 mg 09/11/22 04:48 Bisacodyl 10 Mg Suppository RECTAL QAM PRN Constipation Calcium Carbonate 500 mg 09/11/22 09:00 09/12/22 08:18 Calcium/Vitamin D 500 Mg Tablet PO 500 mg DAILY [facility] Administration Dextrose 12.5 gm 09/11/22 07:36 Dextrose 50% 25 Gm/50 Ml Syringe IV PUSH PRN PRN Hypoglycemia Protocol Ergocalciferol 50,000 units 09/13/22 09:00 Ergocalciferol 50,000 Units Capsule PO Mo@0900 [facility] Ferrous Sulfate 324 mg 09/11/22 08:00 09/12/22 08:19 Ferrous Sulfate 324 Mg Tablet PO 324 mg DAILY@0800 [facility] Administration Glucagon 1 mg 09/11/22 07:36 Glucagon
[2022-09-13 08:43] LABS: Glucose Point of Care 107 mg/dl (65-105)
[2022-09-13] MEDS: ASPIRIN 81 MG ENTERIC TABLET PO (09:06)
[2022-09-13] MEDS: CITALOPRAM HYDROBROMIDE 20 MG TABLET PO (09:06)
[2022-09-13] MEDS: ASCORBIC ACID 500 MG TABLET PO (09:06)
[2022-09-13] MEDS: PANTOPRAZOLE 40 MG TABLET PO (09:06)
[2022-09-13] MEDS: SULFAMETHOXAZOLE/TRIMETHOPRIM 800/160 MG DS TABLET 1 TAB PO (09:06)
[2022-09-13] MEDS: MULTIVITAMINS THERAPEUTIC TAB (*BKC) 1 TABLET PO (09:06)
[2022-09-13] MEDS: ERGOCALCIFEROL 50,000 UNITS CAPSULE 50000 UNITS PO (09:06)
[2022-09-13] MEDS: FERROUS SULFATE 324 MG TABLET PO (09:07)
--- NOTE | 2022-09-13 09:53 | PCPTNOTE ---
Patient refused treatment this session. Patient did not give reason why. Educated patient on the importance of therapy and sitting up, patient continued to refuse.
[2022-09-13 12:01] LABS: Glucose Point of Care 164 mg/dl (65-105)
[2022-09-13] MEDS: INSULIN ASPART (*BKC) 100 UNITS/ML SUB-Q (12:05)
--- NOTE | 2022-09-13 13:09 | PCPTNOTE ---
Patient refused treatment this session. Encouraged patient to participate in therapy, patient continued to refuse.
--- NOTE | 2022-09-13 13:43 | PCOTNOTE ---
Patient refused treatment this session due to not feeling good and is tired. Patient reported she did not want to do therapy and just wanted to sleep.
[2022-09-13 14:35] VITALS: BP 138/50; PULSE 68; RESP 20; TEMP 36.5; O2SAT 95
--- NOTE | 2022-09-13 15:20 | P.DS_ITS ---
DS: Admitting Diagnosis Discharge Date 09/13/2022 Admitting Diagnosis acute pyelonephritis Altered mental status chronic combined systolic & diastolic CHF not in acute exacerbation Uncontrolled type 2 diabetes mellitus Generalized weakness DS: Discharge Diagnosis Discharge Diagnosis (1) Sepsis: Qualifiers: Sepsis acute organ dysfunction status: without acute organ dysfunction Sepsis type: sepsis due to unspecified organism Qualified Code(s): A41.9 - Sepsis, unspecified organism Code(s): A41.9 - Sepsis, unspecified organism Status: Resolved Assessment and Plan: RR 32, WBC 14, CT scan suggests pyelonephritis, lactic acid 0.8, procal 0.2, CRP 8.3 * Given 2L NS fluids and Rocephin 1 gram in ED * Treated with IV antibiotics 09/10-09/11 * Blood cultures negative to date * urine culture mixed lacho, however, patient with evidence of pyelonephritis on CT so will continue treatment. * Hemodynamically stable. Afebrile. (2) Pyelonephritis, unspecified: Code(s): N12 - Tubulo-interstitial nephritis, not specified as acute or chronic Status: Acute Assessment and Plan: CT abd/pelvis with mild perinephric fat stranding to bilaterally with mild hydronephrosis with thickening of renal pelves & ureters, as well as thickening of the urinary bladder wall suggesting cystitis and b/l ascending pyelonephritis. * IV Rocephin started in ED first dose given 09/10-09/11 * 09/11 WBC decreased 11.2, CRP 8.3 and procalcitonin 0.2. * Continue PRN acetaminophen for fever/pain * Urology consulted and appreciate recommendations. * Urine culture mixed lacho. Leukocytosis resolved on antibiotics however. * 09/12 Change to Bactrim DS 1 tab BID x10 days after all cultures reviewed and noted to be sensitive. She may benefit from prophylaxis treatment with trimethoprim after treatment, but will defer to Urology. * 09/12 Blood cultures negative to date. (3) Generalized weakness: Code(s): R53.1 - Weakness Status: Acute Assessment and Plan: Likely secondary to acute illness versus severe depression. PT OT consulted. Encourage participation in activities. (4) AMS (altered mental status): Qualifiers: Altered mental status type: somnolence Qualified Code(s): R40.0 - Somnolence Code(s): R41.82 - Altered mental status, unspecified Status: Acute Assessment and Plan: Likely secondary to sepsis * Continue IV antibiotics and IV fluids for treatment of infection. * ABG without evidence of hypercapnia. * Check ammonia, acetaminophen level and Utox * TSH, B12, Folic acid all checked last admission and within normal limits. * Patient may have some underlying depression Geriatric Depression Scale long form score 27/30 suggesting severe depression. Continue SSRI just started and may not have had time to be effective. No SI. Consider outpatient referral to mental health provider for CBT. * Appears at baseline. (5) Combined systolic and diastolic congestive heart failure: Qualifiers: Heart failure chronicity: chronic Qualified Code(s): I50.42 - Chronic combined systolic (congestive) and diastolic (congestive) heart failure Code(s): I50.40 - Unspecified combined systolic (congestive) and diastolic (congestive) heart failure Status: Chronic Assessment and Plan: Chronic, not in acute exacerbation. * 02/16 Echocardiogram showed LV enlargement w/moderate hypokinesia and EF 35- 40%, grade 1 diastolic. * patient appears euvolemic. * Daily weight * Continue mo
--- NOTE | 2022-09-13 15:20 | PM.DS ---
DS: Admitting Diagnosis Discharge Date 09/13/2022 Admitting Diagnosis acute pyelonephritis Altered mental status chronic combined systolic & diastolic CHF not in acute exacerbation Uncontrolled type 2 diabetes mellitus Generalized weakness DS: Discharge Diagnosis Discharge Diagnosis (1) Sepsis: Qualifiers: Sepsis acute organ dysfunction status: without acute organ dysfunction Sepsis type: sepsis due to unspecified organism Qualified Code(s): A41.9 - Sepsis, unspecified organism Code(s): A41.9 - Sepsis, unspecified organism Status: Resolved Assessment and Plan: RR 32, WBC 14, CT scan suggests pyelonephritis, lactic acid 0.8, procal 0.2, CRP 8.3 Given 2L NS fluids and Rocephin 1 gram in ED Treated with IV antibiotics 09/10-09/11 Blood cultures negative to date urine culture mixed lacho, however, patient with evidence of pyelonephritis on CT so will continue treatment. Hemodynamically stable. Afebrile. (2) Pyelonephritis, unspecified: Code(s): N12 - Tubulo-interstitial nephritis, not specified as acute or chronic Status: Acute Assessment and Plan: CT abd/pelvis with mild perinephric fat stranding to bilaterally with mild hydronephrosis with thickening of renal pelves & ureters, as well as thickening of the urinary bladder wall suggesting cystitis and b/l ascending pyelonephritis. IV Rocephin started in ED first dose given 09/10-09/11 09/11 WBC decreased 11.2, CRP 8.3 and procalcitonin 0.2. Continue PRN acetaminophen for fever/pain Urology consulted and appreciate recommendations. Urine culture mixed lacho. Leukocytosis resolved on antibiotics however. 09/12 Change to Bactrim DS 1 tab BID x10 days after all cultures reviewed and noted to be sensitive. She may benefit from prophylaxis treatment with trimethoprim after treatment, but will defer to Urology. 09/12 Blood cultures negative to date. (3) Generalized weakness: Code(s): R53.1 - Weakness Status: Acute Assessment and Plan: Likely secondary to acute illness versus severe depression. PT OT consulted. Encourage participation in activities. (4) AMS (altered mental status): Qualifiers: Altered mental status type: somnolence Qualified Code(s): R40.0 - Somnolence Code(s): R41.82 - Altered mental status, unspecified Status: Acute Assessment and Plan: Likely secondary to sepsis Continue IV antibiotics and IV fluids for treatment of infection. ABG without evidence of hypercapnia. Check ammonia, acetaminophen level and Utox TSH, B12, Folic acid all checked last admission and within normal limits. Patient may have some underlying depression Geriatric Depression Scale long form score 27/30 suggesting severe depression. Continue SSRI just started and may not have had time to be effective. No SI. Consider outpatient referral to mental health provider for CBT. Appears at baseline. (5) Combined systolic and diastolic congestive heart failure: Qualifiers: Heart failure chronicity: chronic Qualified Code(s): I50.42 - Chronic combined systolic (congestive) and diastolic (congestive) heart failure Code(s): I50.40 - Unspecified combined systolic (congestive) and diastolic (congestive) heart failure Status: Chronic Assessment and Plan: Chronic, not in acute exacerbation. 02/16 Echocardiogram showed LV enlargement w/moderate hypokinesia and EF 35-40%, grade 1 diastolic. patient appears euvolemic. Daily weight Continue monitoring intake and output Holding lisinopril currently for soft BP. (6) Uncontrolled type 2 diabetes mellitus with hyperglycemia, with long-term current use of insulin: Code(s): E11.65 - Type 2 diabetes mellitus with hyperglycemia; Z79.4 - group home (current) use of insulin Status: Chronic Assessment and Plan: Chronic, blood glucose levels 200s, last A1c 9.2% 08/21/22 continue basal
[2022-09-13 15:26] LABS: EDCOVIDSCREEN Negative (Negative)
--- NOTE | 2022-09-13 16:11 | PCCCNOTE ---
On 09/13/22, the student, Rhona Gomez, provided care and completed [facility] documentation on this patient. I have reviewed the student's documentation and agree with the findings.
[2022-09-13 17:24] LABS: Glucose Point of Care 172 mg/dl (65-105)
== END 2022-09-13 18:00 | DRG 698 ==
LOC: ANHED 09-11 02:48 → ANH2MED 09-11 03:24
PROVIDERS: Admitting Provider Internal Medicine; Emergency Provider Emergency Medicine; PCP Family Medicine; Visit Provider Nurse Practitioner Family
DX: T83.511A Infection and inflammatory reaction due to indwelling urethral catheter, initial encounter (principal); A41.9 Sepsis, unspecified organism; N12 Tubulo-interstitial nephritis, not specified as acute or chronic; I13.0 Hypertensive heart and chronic kidney disease with heart failure and stage 1 through stage 4 chronic kidney disease, or unspecified chronic kidney disease; I50.42 Chronic combined systolic (congestive) and diastolic (congestive) heart failure; E87.1 Hypo-osmolality and hyponatremia; F32.2 Major depressive disorder, single episode, severe without psychotic features; E11.65 Type 2 diabetes mellitus with hyperglycemia; N31.2 Flaccid neuropathic bladder, not elsewhere classified; N30.90 Cystitis, unspecified without hematuria; I11.0 Hypertensive heart disease with heart failure; E11.22 Type 2 diabetes mellitus with diabetic chronic kidney disease; N18.30 Chronic kidney disease, stage 3 unspecified; G47.33 Obstructive sleep apnea (adult) (pediatric); I25.10 Atherosclerotic heart disease of native coronary artery without angina pectoris; M19.90 Unspecified osteoarthritis, unspecified site; E11.42 Type 2 diabetes mellitus with diabetic polyneuropathy; Z79.4 Long term (current) use of insulin; Z86.16 Personal history of COVID-19; I25.2 Old myocardial infarction; Z91.199 Patient's noncompliance with other medical treatment and regimen due to unspecified reason; Z98.84 Bariatric surgery status; Z90.49 Acquired absence of other specified parts of digestive tract; Z90.710 Acquired absence of both cervix and uterus; Z90.722 Acquired absence of ovaries, bilateral; Z95.5 Presence of coronary angioplasty implant and graft; Z87.891 Personal history of nicotine dependence
CPT/HCPCS: 36415; 36600; 70450; 71045; 74177; 80048; 80053; 80069; 80307; 81001; 82140; 82375; 82550; 82805; 82948; 83050; 83605; 83690; 83735; 83880; 84145; 84484; 85025; 85610; 85730; 86140; 87040; 87086; 87088; 87426; 93005; 96365; 96375; 97161; 97165; 99285; A9270; C9803; G0378; J0696; J1815; J2405; J7030; Q9967

== ENCOUNTER 2022-11-19 13:57 | Outpatient (CLI) | payer MEDICARE, BC, SELFPAY ==
[2022-11-19 15:26] LABS: Basophils Absolute Auto 0.1 K/mm3 (0.0-0.1); Basophils Percent Auto 0.9 % (0.2-1.2); Eosinophils Absolute Auto 0.2 K/mm3 (0-0.3); Eosinophils Percent Auto 2.8 % (0-4.4); Hematocrit 37.5 % (37.0-47.0); Hemoglobin 11.9 g/dL (12.0-15.0); Immature Granulocyte Absolute 0.01 K/mm3 (0.00-0.031); Immature Granulocyte Percent A 0.1 % (0-0.5); Lymphocytes Percent Auto 14.8 % (18.3-44.2); Mean Corpuscular HGB Conc 31.7 g/dl (32-36); Mean Corpuscular Hemoglobin 29.2 pg (26-34); Mean Corpuscular Volume 92.1 fl (80-100); Mean Platelet Volume 9.8 fl (7.4-10.4); Monocytes Absolute Auto 0.7 K/mm3 (0.1-0.6); Monocytes Percent Auto 9.3 % (2.6-8.5); Neutrophils Absolute Auto 5.4 K/mm3 (1.3-6.7); Neutrophils Percent Auto 72.1 % (45.5-73.1); Platelet Count Result 335 k/mm3 (150-375); Red Blood Count 4.07 M/mm3 (4.2-5.4); Red Cell Distribution Width 14.5 % (11.5-14.5); White Blood Count 7.5 K/mm3 (4.5-10.0)
[2022-11-19 15:29] LABS: Appearance Urine Turbid (Clear); Bacteria Urine 3+ /hpf; Bilirubin Urine Negative (Negative); Blood Urine 2+ (Negative); Color Urine Yellow (Yellow); Glucose Urine UA Negative (Negative); Ketones Urine Negative (Negative); Leukocyte Esterase Ur 3+ LEU/UL (NEGATIVE); Leukocyte Esterase Ur 3+ LEU/UL (Negative); Nitrate Urine Negative (Negative); Non Pathogenic Casts 0-2; Protein Urine 2+ mg/dL (Negative); RBC Urine 0-2 /hpf (0-2); Specific Grav Ur 1.007 (1.001-1.035); Squamous Epithelial Cell Urine Occasional /hpf (Few); Urobilinogen Urine 0.2 mg/dL (<2.0); WBC Urine >100 /hpf; WBC Urine >100 /hpf (0-3)
[2022-11-19 15:33] LABS: Hemoglobin A1C 7.7 % (<5.7)
[2022-11-19 15:41] LABS: Prothrombin Time 13.6 Seconds (11.1-14.7)
[2022-11-19 15:42] LABS: Partial Thromboplastin Time 25.1 SECONDS (22.3-36.8)
[2022-11-19 15:44] LABS: Add Urine Microscopic? YES
[2022-11-19 15:47] LABS: Alanine Aminotransferase 18 U/L (6-35); Albumin Level 3.8 g/dL (3.5-5.1); Alkaline Phosphatase 72 U/L (38-126); Anion Gap 2 mmol/L (8-16); Aspartate Amino Transferase 32 U/L (14-36); Blood Urea Nitrogen 15 mg/dL (7-17); Calcium 8.7 mg/dL (8.4-10.2); Carbon Dioxide 27 mmol/L (22-30); Chloride 100 mmol/L (98-107); Cholesterol 155 mg/dL (0-200); Estimated Glomerular Filt Rate 48; Glucose 124 mg/dL (65-110); HDL Direct 50 mg/dL; Potassium 3.7 mmol/L (3.4-5.0); Sodium 129 mmol/L (137-145); Triglycerides 78 mg/dL (<150)
[2022-11-19 15:49] LABS: Creatinine Urine 37.6 mg/dL
[2022-11-19 15:58] LABS: LDL Cholesterol Direct 76 mg/dL
[2022-11-19 16:18] LABS: MALB Creatinine Ratio 583.2 mg/g (0-30); Microalbumin Urine Random 219.3 mg/L (0-16.7)
== END 2022-11-19 13:58 | disposition home or self-care (01) ==
PROVIDERS: PCP Nurse Practitioner Family; Referring Provider Internal Medicine Cardiovascular Disease; Visit Provider Nurse Practitioner Family
DX: D64.9 Anemia, unspecified (principal); I25.10 Atherosclerotic heart disease of native coronary artery without angina pectoris; E11.9 Type 2 diabetes mellitus without complications; Z95.810 Presence of automatic (implantable) cardiac defibrillator; I42.9 Cardiomyopathy, unspecified; E11.65 Type 2 diabetes mellitus with hyperglycemia; Z79.4 Long term (current) use of insulin; E78.5 Hyperlipidemia, unspecified; N18.9 Chronic kidney disease, unspecified; E11.22 Type 2 diabetes mellitus with diabetic chronic kidney disease; I13.0 Hypertensive heart and chronic kidney disease with heart failure and stage 1 through stage 4 chronic kidney disease, or unspecified chronic kidney disease; N39.0 Urinary tract infection, site not specified; I50.40 Unspecified combined systolic (congestive) and diastolic (congestive) heart failure
CPT/HCPCS: 36415; 80053; 80061; 81001; 82043; 82306; 83036; 85025; 85610; 85730; 87086; 87147; 87181; 87186

== ENCOUNTER 2022-12-08 17:12 | Outpatient (CLI) | payer MEDICARE, BC, SELFPAY ==
[2022-12-08 18:15] LABS: Anion Gap 6 mmol/L (8-16); Blood Urea Nitrogen 19 mg/dL (7-17); Calcium 8.5 mg/dL (8.4-10.2); Carbon Dioxide 26 mmol/L (22-30); Chloride 102 mmol/L (98-107); Estimated Glomerular Filt Rate 33; Glucose 132 mg/dL (65-110); Potassium 4.2 mmol/L (3.4-5.0); Sodium 134 mmol/L (137-145)
== END 2022-12-08 17:13 | disposition home or self-care (01) ==
PROVIDERS: PCP Nurse Practitioner Family
DX: I42.9 Cardiomyopathy, unspecified (principal); E87.1 Hypo-osmolality and hyponatremia; R53.83 Other fatigue; N39.0 Urinary tract infection, site not specified
CPT/HCPCS: 36415; 80048

== ENCOUNTER 2022-12-09 13:19 | Outpatient (NON) | payer MEDICARE, BC, SELFPAY ==
[2022-12-09 13:59] LABS: Appearance Urine Turbid (Clear); Bacteria Urine 4+ /hpf; Bilirubin Urine Negative (Negative); Blood Urine 2+ (Negative); Color Urine Yellow (Yellow); Glucose Urine UA Negative (Negative); Ketones Urine Negative (Negative); Leukocyte Esterase Ur 3+ LEU/UL (Negative); Need Manual Microscopic Reviewed; Nitrate Urine Positive (Negative); Non Pathogenic Casts 0-2; Protein Urine 1+ mg/dL (Negative); Specific Grav Ur 1.008 (1.001-1.035); Squamous Epithelial Cell Urine Moderate /hpf (Few); Urobilinogen Urine 0.2 mg/dL (<2.0); WBC Urine >100 /hpf; pH Urine 5.5 (5.0-9.0)
[2022-12-09 14:00] LABS: Add Urine Microscopic? YES
== END 2022-12-09 13:20 | disposition home or self-care (01) ==
PROVIDERS: PCP Nurse Practitioner Family; Visit Provider Internal Medicine Cardiovascular Disease
DX: N39.0 Urinary tract infection, site not specified (principal)
CPT/HCPCS: 81001; 87086; 87147; 87181; 87186

== ENCOUNTER 2022-12-24 17:01 | Outpatient (NON) | payer MEDICARE, BC, SELFPAY ==
[2022-12-24 17:40] LABS: Appearance Urine Turbid (Clear); Bacteria Urine 1+ /hpf; Bilirubin Urine Negative (Negative); Blood Urine 2+ (Negative); Color Urine Yellow (Yellow); Glucose Urine UA Negative (Negative); Ketones Urine Negative (Negative); Leukocyte Esterase Ur 3+ LEU/UL (NEGATIVE); Need Manual Microscopic Reviewed; Nitrate Urine Negative (Negative); Non Pathogenic Casts >20; Protein Urine 2+ mg/dL (Negative); Specific Grav Ur 1.005 (1.001-1.035); Squamous Epithelial Cell Urine Many /hpf (Few); Urobilinogen Urine 0.2 mg/dL (<2.0); WBC Urine >100 /hpf (0-3)
[2022-12-24 17:48] LABS: Add Urine Microscopic? YES
== END 2022-12-24 17:02 | disposition home or self-care (01) ==
LOC: ANHLAB 17:02
PROVIDERS: PCP Nurse Practitioner Family; Visit Provider Nurse Practitioner Family
DX: N39.0 Urinary tract infection, site not specified (principal)
CPT/HCPCS: 81001; 87086; 87088

== ENCOUNTER 2023-01-12 00:51 | Emergency (ER) | payer MEDICARE, BC, SELFPAY ==
[2023-01-12] VITALS (113 sets, daily range): BP systolic 102–168; BP diastolic 40–107; PULSE 55–111; RESP 7–30; TEMP 37.3; O2SAT 90–100
--- NOTE | ~2023-01-12 | CT_ITS ---
CT of the Abdomen and Pelvis: Indication: Pancreatitis Technique: 2.5 mm axial scans were obtained through the abdomen and pelvis following intravenous adm inistration of 100 cc of Omnipaque 350. Dose reduction technique was used on this scan by utilizing a utomated exposure control and iterative reconstruction technique. The dose-length product (DLP) was 9 94.41 mGy-cm. COMPARISON: 09/11/2022 Findings: Scans through the lung bases are unremarkable. The spleen, pancreas, adrenals and kidneys are within normal limits. Multiple gallstones are present. There are atherosclerotic calcifications of the aorta. No lymphadenopathy. There is evidence of prior gastric/bariatric surgery with Abigail-en-Y, gastric staple line, and gastroj ejunostomy present. Suggestion of possible dehiscence at the gastrojejunostomy site with possible 3.2 cm fluid collection present at this location interposed between the gastrojejunostomy and left hepat ic lobe (axial images 26-30). There is vague hypodensity in the adjacent left hepatic lobe, which cou ld reflect phlegmon/early abscess (axial image 21 for example), measuring approximately 2.7 cm in blayne meter. No bowel obstruction. Moderate stool noted throughout large bowel. Images through the pelvis were performed. There is diffuse urinary bladder wall thickening. Patient i s post hysterectomy. No adnexal mass seen. No ascites. Impression: Possible dehiscence/leak at the gastrojejunostomy site with possible 3.2 cm contained leak/abscess, a s detailed above. Consider limited upper GI to further assess. Associated amorphous hypodensity in the adjacent left hepatic lobe could reflect phlegmon/early hepat ic abscess, measuring approximately 2.7 cm in diameter. Cystitis. Cholelithiasis. Reviewed, dictated and finalized at location M. Impression: Possible dehiscence/leak at the gastrojejunostomy site with possible 3.2 cm con tained leak/abscess, as detailed above. Consider limited upper GI to further as sess. Associated amorphous hypodensity in the adjacent left hepatic lobe could reflec t phlegmon/early hepatic abscess, measuring approximately 2.7 cm in diameter. Cystitis. Cholelithiasis.
--- NOTE | ~2023-01-12 | US_ITS ---
Limited Abdominal Sonogram: Real-time sonographic imaging of the right upper quadrant was performed. Clinical History: Pancreatitis, abnormal LFTs Findings: There is a probable vague hypoechoic area in the left hepatic lobe, somewhat poorly delinea zulema. No intrahepatic biliary dilatation. Main portal vein demonstrates normal direction of flow. The gallbladder is well distended, and contains multiple gallstones. The common bile duct measures 5 mm. The visualized pancreas, aorta, and IVC are unremarkable. Impression: Vague hypoechoic area in the left hepatic lobe, indeterminate. Given findings on CT performed earlier today, MRI (pre and postcontrast) could be considered to best evaluate for left hepatic lobe patholo gy. Cholelithiasis. Reviewed, dictated and finalized at location M. Impression: Vague hypoechoic area in the left hepatic lobe, indeterminate. Given findings o n CT performed earlier today, MRI (pre and postcontrast) could be considered to best evaluate for left hepatic lobe pathology. Cholelithiasis.
--- NOTE | 2023-01-12 01:02 | ECG_ITS ---
Measurements Intervals [place] Rate: 107 P: 53 TX: 144 QRS: -40 QRSD: 128 T: 93 QT: 350 QTc: 468 Interpretive Statements SINUS TACHYCARDIA RIGHT BUNDLE-BRANCH BLOCK POSSIBLE SEPTAL MYOCARDIAL INFARCTION , OF INDETERMINATE AGE [30 ms Q WAVE IN V1/V2] MODERATE T-WAVE ABNORMALITY, CONSIDER ANTERIOR ISCHEMIA [-0.1+ mV T WAVE IN V3/V4] ABNORMAL ECG COMPARED TO ECG 09/11/2022 00:00:47 HEART RATE HAS INCREASED LEFT-AXIS DEVIATION NOW PRESENT Electronically Signed On 01-12-2023 9:05:00 CDT by Humberto Ford M.D.
[2023-01-12 01:29] LABS: Basophils Absolute Auto 0.1 K/mm3 (0.0-0.1); Basophils Percent Auto 0.4 % (0.2-1.2); Eosinophils Absolute Auto 0.1 K/mm3 (0-0.3); Eosinophils Percent Auto 0.4 % (0-4.4); Hematocrit 40.7 % (37.0-47.0); Hemoglobin 12.8 g/dL (12.0-15.0); Immature Granulocyte Absolute 0.05 K/mm3 (0.00-0.031); Immature Granulocyte Percent A 0.4 % (0-0.5); Lymphocytes Percent Auto 1.6 % (18.3-44.2); Mean Corpuscular HGB Conc 31.4 g/dl (32-36); Mean Corpuscular Hemoglobin 28.7 pg (26-34); Mean Corpuscular Volume 91.3 fl (80-100); Mean Platelet Volume 8.9 fl (7.4-10.4); Monocytes Absolute Auto 0.7 K/mm3 (0.1-0.6); Monocytes Percent Auto 5.3 % (2.6-8.5); Neutrophils Absolute Auto 11.3 K/mm3 (1.3-6.7); Neutrophils Percent Auto 91.9 % (45.5-73.1); Platelet Count Result 418 k/mm3 (150-375); Red Blood Count 4.46 M/mm3 (4.2-5.4); White Blood Count 12.3 K/mm3 (4.5-10.0)
[2023-01-12 01:40] LABS: INR 1.1; Prothrombin Time 14.8 Seconds (11.1-14.7)
[2023-01-12 02:02] LABS: Anisocytosis 1+ (NORMAL); Burr Cells 1+ (NORMAL); Large Platelets Present; Ovalocytes 1+ (NORMAL); Platelet Estimate Increased (Adequate); Schistocytes None Seen (NORMAL)
[2023-01-12 02:21] LABS: Appearance Urine Turbid (Clear); Bacteria Urine 2+ /hpf; Bilirubin Urine 1+ (Negative); Blood Urine 3+ (Negative); Color Urine Dark Yellow (Yellow); Glucose Urine UA Negative (Negative); Ketones Urine Trace mg/dL (Negative); Leukocyte Esterase Ur 3+ LEU/UL (Negative); Nitrate Urine Negative (Negative); Protein Urine 3+ mg/dL (Negative); RBC Urine >100 /hpf (0-2); Specific Grav Ur 1.014 (1.001-1.035); Squamous Epithelial Cell Urine Many /hpf (Few); WBC Clumps Urine Present /HPF; WBC Urine >100 /hpf; pH Urine 5.5 (5.0-9.0)
[2023-01-12 02:24] LABS: Add Urine Microscopic? YES
[2023-01-12 02:33] LABS: Alanine Aminotransferase 344 U/L (6-35); Albumin Level 3.7 g/dL (3.5-5.1); Alkaline Phosphatase 656 U/L (38-126); Anion Gap 11 mmol/L (8-16); Aspartate Amino Transferase 733 U/L (14-36); Bilirubin,Total 1.9 mg/dL (0.2-1.3); Blood Urea Nitrogen 24 mg/dL (7-17); Calcium 9.1 mg/dL (8.4-10.2); Carbon Dioxide 19 mmol/L (22-30); Chloride 101 mmol/L (98-107); Estimated Glomerular Filt Rate 39; Glucose 288 mg/dL (65-110); Potassium 5.4 mmol/L (3.4-5.0); Sodium 131 mmol/L (137-145)
[2023-01-12] MEDS: LACTATED RINGERS 1,000 ML 999 ML IV CONT (03:26)
[2023-01-12 04:20] LABS: Alanine Aminotransferase 343 U/L (6-35); Albumin Level 3.7 g/dL (3.5-5.1); Alkaline Phosphatase 675 U/L (38-126); Bilirubin Direct 0.1 mg/dL (0-0.3); Bilirubin,Total 1.8 mg/dL (0.2-1.3)
[2023-01-12 04:21] LABS: Lipase 1955 U/L (23-300)
[2023-01-12 04:22] LABS: Lactic Acid Reflex 1.3 mmol/L (0.7-2.0)
[2023-01-12 04:44] LABS: Aspartate Amino Transferase 754 U/L (14-36)
[2023-01-12] MEDS: SODIUM CHLORIDE 0.9% IV 1,000 ML 150 ML IV CONT (06:27)
[2023-01-12] MEDS: PIPERACILLN/TAZ 3.375GM/NS50ML 3.375 GM/50 ML BAG IVPB (10:10)
--- NOTE | 2023-01-12 10:11 | PC.NURSE ---
NS infusion at 150ml/hr rate decreased to 100ml/hr per new order
--- NOTE | 2023-01-12 10:24 | ED.AMS ---
HPI - Altered Mental Status General Chief Complaint: Altered Mental Status Stated Complaint: WEAKNESS, N/V, AMS Time Seen by Provider: 01/12/23 02:06 Source: patient and family (son in person (and again via phone at 7:15am) and daughter Tasia via phone at 07:32 ([phone])) History of Present Illness HPI narrative: Patient's son, who lives with her, denies that she has fallen but does state that she has been sliding out of bed. States she has been weak and with altered mental status (initially didn't know who president was when asked in triage, stated Donal Huston). Normally A&O x4. She has had 1 episode of non bloody vomiting. No diarrhea. LBM was yesterday (Tuesday) and reportedly no constipation, non-bloody. No fevers. She will occasionally use a walker to ambulate. Continues to pass flatus. Complains of butt pain ; history of bed sores that have been healing. Pt's criminal researcher is Dr Romo. She had a pacemaker battery changed 3 weeks ago. She denies any CP or abdominal pain. Son states she has been sleeping more than normal. Unknown PO intake the day prior. She last took her long acting Glarging dose Tuesday PM. No short acting insulin taken today given blood glucose 187. Daughter Tasia states patient currently finishing Abx for UTI. Believes surgical intervention performed at a hospital in [place], unclear which. Patient states Jessica. Related Data Home Medications Medication Instructions Recorded Confirmed calcium carbonate 500 mg-vitamin 1 tablet PO DAILY 04/03/19 11/16/22 D3 10 mcg (400 unit) tablet (Calcium 500 + D) multivitamin 1 tablet PO DAILY 10/01/19 11/16/22 aspirin 81 mg tablet 81 mg PO DAILY 08/22/22 11/16/22 insulin aspart U-100 100 unit/mL 3 - 6 unit subcut TIDWM PRN 09/11/22 11/16/22 subcutaneous solution (Novolog Hyperglycemia U-100 Insulin aspart) ondansetron 4 mg PO Q6H PRN Nausea 09/11/22 11/16/22 ferrous sulfate 325 mg (65 mg 324 mg PO BID 11/16/22 11/16/22 iron) tablet Allergies Allergy/AdvReac Type Severity Reaction Status Date / Time No Known Allergies Allergy Unknown Verified 11/16/22 13:42 [facility] Past Medical History Medical History (Updated 01/12/23 @ 10:58 by Kortney Middleton MD) Anxiety Arthritis B12 deficiency BPPV (benign paroxysmal positional vertigo) CAD (coronary artery disease) Chronic constipation Chronic hyponatremia Chronic lower back pain CKD (chronic kidney disease) stage 3, GFR 30-59 ml/min Closed fracture of right humerus (09/2019) Combined systolic and diastolic congestive heart failure Echocardiogram 01/2022: EF 35-40%, grade 1 diastolic dysfunction, technically difficult study COPD with asthma COVID-19 (~01/2022) Depression Diabetic peripheral neuropathy Eczema Encounter for servicing of pacemaker at end of battery life Frequent UTI Gallstone pancreatitis (02/04/22) Gastric ulcer Resulting in GI bleed 01/2022 Gout Hyperlipidemia Hypertension IDDM (insulin dependent diabetes mellitus) Insomnia CONTRERAS (nonalcoholic steatohepatitis) Noted on ultrasound in 2011 NSTEMI (non-ST elevated myocardial infarction) Obstructive sleep apnea Mostly noncompliant with CPAP use Osteoarthritis Peripheral artery disease Portal vein thrombosis (01/2022) Not treated due to active GI bleed of the time Reflux esophagitis Seasonal allergies Type 2 diabetes mellitus Historically uncontrolled hemoglobin A1c 9% on 08/21/2022 Vitamin D deficiency Surgical History Surgical History (Updated 01/12/23 @ 10:37 by Kortney Middleton MD) Gastric bypass status for obesity (~2001) History of appendectomy History of Abigail-en-Y gastric bypass 2001 per review of EMR by hospitalist; Patient states performed at [facility] History of total hysterectomy with bilateral salpingo-oophorectomy (BSO) For benign disease History of ventral hernia repair Post-op changes noted on CT Hx of heart artery stent ICD (implantable cardioverter-defibrillator) in place (~2011) Status post pannic
--- NOTE | 2023-01-12 13:12 | PC.NURSE ---
called Milton, pt POA, to update her on pt status @1310 per pt request
--- NOTE | 2023-01-12 14:14 | PC.NURSE ---
provided pt with mouth swab and lip care per pt request
[2023-01-12] MEDS: SODIUM CHLORIDE 0.9% IV 1,000 ML 100 ML IV CONT (14:25)
--- NOTE | 2023-01-12 14:32 | PC.NURSE ---
pt has an unstaged bed wound on coccyx with no active bleeding. pt states they have had this sore for a while . applied skin barrier cream and 10x10 Mepilex. pt is lying on right side currently to relieve pressure on coccyx and diaper was replaced.
[2023-01-12] MEDS: ACETAMINOPHEN 500 MG TABLET 1000 MG PO (21:05)
[2023-01-12 22:32] LABS: Glucose Point of Care 84 mg/dl (65-105)
[2023-01-12] MEDS: DEXTROSE 5%/LACTATED RINGERS 1,000 ML 100 ML IV CONT (23:01)
--- NOTE | 2023-01-12 23:03 | PC.NURSE ---
checked pt blood sugar since they are NPO and have not eaten today. pt blood sugar was 84 and they stated this is low for them. Dr. Middleton stated to stop NS and to begin new fluids per order in MAY.
[2023-01-13] VITALS (52 sets, daily range): BP systolic 124–164; BP diastolic 49–65; PULSE 56–72; RESP 13–28; O2SAT 79–99
[2023-01-13] MEDS: ACETAMINOPHEN 500 MG TABLET 1000 MG PO (04:01)
--- NOTE | 2023-01-13 09:07 | PC.NURSE ---
Aleta from [facility] transfer center called for update. No beds currently available.
--- NOTE | 2023-01-13 09:26 | PC.NURSE ---
ASHLEIGH Middleton stated she ordered only one time bag of Dextrose and stated that Pt is to remain NPO due to awaiting surgical intervention consult at [place]
[2023-01-13] MEDS: AMPICILLIN 1 GM/NS 50 ML 1 GM/50 ML BAG IVPB (10:01)
--- NOTE | 2023-01-13 14:06 | PC.NURSE ---
[facility] [id number] DISC TO BE SENT
== END 2023-01-13 14:40 | disposition short-term general hospital (02) ==
PROVIDERS: Emergency Provider Student in an Organized Health Care Education/Training Program; PCP Nurse Practitioner Family
DX: K85.90 Acute pancreatitis without necrosis or infection, unspecified (principal); R41.82 Altered mental status, unspecified; N39.0 Urinary tract infection, site not specified; K63.89 Other specified diseases of intestine; K75.0 Abscess of liver; R79.89 Other specified abnormal findings of blood chemistry; E87.1 Hypo-osmolality and hyponatremia; E11.65 Type 2 diabetes mellitus with hyperglycemia; D72.829 Elevated white blood cell count, unspecified; D75.839 Thrombocytosis, unspecified; I25.10 Atherosclerotic heart disease of native coronary artery without angina pectoris; I13.0 Hypertensive heart and chronic kidney disease with heart failure and stage 1 through stage 4 chronic kidney disease, or unspecified chronic kidney disease; E11.22 Type 2 diabetes mellitus with diabetic chronic kidney disease; N18.30 Chronic kidney disease, stage 3 unspecified; I50.40 Unspecified combined systolic (congestive) and diastolic (congestive) heart failure; E78.5 Hyperlipidemia, unspecified; Z87.891 Personal history of nicotine dependence
CPT/HCPCS: 36415; 74177; 76705; 80053; 80076; 81001; 82948; 83605; 83690; 85025; 85610; 85730; 87086; 87147; 87181; 87186; 93005; 96361; 96365; 96367; 99285; A9270; J0290; J0696; J2543; J7030; J7120; J7121; Q9967

== ENCOUNTER 2023-02-08 23:57 | Inpatient (IN) | payer MEDICARE, BC, SELFPAY ==
--- NOTE | ~2023-02-08 | CT_ITS ---
Clinical Indication: Shortness of breath CT Scan of the Chest with Contrast: Technique: Contiguous sections were acquired throughout the chest after intravenous administration of 100 cc of Omnipaque 350. Dose reduction technique was used on this scan by utilizing automated expos ure control and iterative reconstruction technique. The dose-length product (DLP) was 638.19 mGy-cm. COMPARISON: 08/30/2022 Findings: There is no evidence of any significant mediastinal, hilar or axillary lymphadenopathy. There is no f illing defect in the pulmonary arterial tree to suggest pulmonary embolus. There is no evidence of ao rtic dissection or aneurysm. No pericardial effusion. There are [id number] bilateral pleural effusions, right greater than left, with associated par tial bilateral lower lobe atelectasis. Probable minimal interstitial edema. Images through the upper abdomen reveal calcified gallstones, and probable partially imaged moderate left hydronephrosis.. Impression: No evidence of pulmonary embolus, aortic dissection, or aortic aneurysm. [id number] bilateral pleural effusions, right greater than left, with bilateral partial lower lobe atelectasis, and minimal interstitial pulmonary edema. Cholelithiasis and partially imaged moderate left hydronephrosis, stable from prior exam. Reviewed, dictated and finalized at location M. HANDISING DIRECTOR Impression: No evidence of pulmonary embolus, aortic dissection, or aortic aneurysm. [id number] bilateral pleural effusions, right greater than left, with bi lateral partial lower lobe atelectasis, and minimal interstitial pulmonary sangeeta a. Cholelithiasis and partially imaged moderate left hydronephrosis, stable from p rior exam.
--- NOTE | ~2023-02-08 | XR_ITS ---
Portable chest x-ray Comparison: 09/10/2022 Clinical History: Shortness of breath Findings: There is central congestive change and mild interstitial edema. Cardiomediastinal silhoue tte is stable, with pacemaker device. Bones and soft tissues are unremarkable. Impression: Central congestive change and mild interstitial edema. Reviewed, dictated and finalized at [facility]. E SHEAR OPERATOR Impression: Central congestive change and mild interstitial edema.
[2023-02-09] VITALS (27 sets, daily range): BP systolic 107–145; BP diastolic 45–63; PULSE 74–99; RESP 15–22; TEMP 36.4–36.6; O2SAT 95–100
--- NOTE | 2023-02-09 00:30 | ECG_ITS ---
Measurements Intervals [place] Rate: 96 P: 76 OR: 175 QRS: -39 QRSD: 126 T: 99 QT: 427 QTc: 542 Interpretive Statements SINUS RHYTHM LEFT AXIS DEVIATION POSSIBLE LEFT ATRIAL ENLARGEMENT RIGHT BUNDLE BRANCH BLOCK BASELINE ARTIFACT- I, III, AVR, AVL, AVF, V1 ABNORMAL ECG COMPARED TO ECG 01/12/2023 01:18:41 SINUS RHYTHM NOW PRESENT Electronically Signed On 02-09-2023 6:21:19 [employer] by John Luong D.O.
--- NOTE | 2023-02-09 00:31 | ED.SOB ---
HPI - SOB/Dyspnea General Chief Complaint: Shortness of Breath/Dyspnea <Eugenie Carter PA-C - Last Filed: 02/09/23 03:23> Stated Complaint: SOB <LANI Bess Last Filed: 02/09/23 03:23> Time Seen by Provider: 02/09/23 00:19 <LANI Bess Last Filed: 02/09/23 03:23> Source: patient and old records reviewed <LANI Bess Last Filed: 02/09/23 03:23> Mode of arrival: EMS <LANI Bess Last Filed: 02/09/23 03:23> Limitations: no limitations <LANI Bess Last Filed: 02/09/23 03:23> History of Present Illness HPI Narrative: patient is an 82-year-old female who presents to the ED via EMS with report of shortness breath. Patient is a resident of [facility]. She reports she became acutely short of breath approximately 2 hours ago. She states she felt fine earlier today and yesterday. Per EMS report, patient's oxygen was 75% on room air upon arrival. She is placed on 5L nasal cannula. Patient does not typically require oxygen. patient also reports congestion, denies cough, fevers, pleuritic pain, chest pain, abdominal pain, nausea, vomiting. She reports history of CHF with chronic lower extremity edema. She does report it has been worse than usual lately. <LANI Bess Last Filed: 02/09/23 03:23> Related Data Home Medications: Home Medications Medication Instructions Recorded Confirmed calcium carbonate 500 mg-vitamin 1 tablet PO DAILY 04/03/19 01/20/23 D3 10 mcg (400 unit) tablet (Calcium 500 + D) multivitamin 1 tablet PO DAILY 10/01/19 01/20/23 aspirin 81 mg tablet 81 mg PO DAILY 08/22/22 01/20/23 insulin aspart U-100 100 unit/mL 3 - 6 unit subcut TIDWM PRN 09/11/22 01/20/23 subcutaneous solution (Novolog Hyperglycemia U-100 Insulin aspart) ondansetron 4 mg PO Q6H PRN Nausea 09/11/22 01/20/23 ferrous sulfate 325 mg (65 mg 324 mg PO BID 11/16/22 01/20/23 iron) tablet <Eugenie Carter PA-C - Last Filed: 02/09/23 03:23> Allergies/Adverse Reactions: Allergies Allergy/AdvReac Type Severity Reaction Status Date / Time No Known Allergies Allergy Unknown Verified 11/16/22 13:42 <Eugenie Carter PA-C - Last Filed: 02/09/23 03:23> Review of Systems Review of Systems: CONSTITUTIONAL: Denies fever, chills, or sweats. ENT: See HPI. CARDIOVASCULAR: See HPI. RESPIRATORY: See HPI. GASTROINTESTINAL: Denies abdominal pain, nausea, vomiting, or diarrhea. NEUROLOGIC: Denies headache, numbness, or weakness. <Eugenie Carter PA-C - Last Filed: 02/09/23 03:23> All systems reviewed & are unremarkable except as noted in HPI and below <Eugenie Carter PA-C - Last Filed: 02/09/23 03:23> [facility] Past Medical History Medical History: Medical History Anxiety Arthritis B12 deficiency BPPV (benign paroxysmal positional vertigo) CAD (coronary artery disease) Chronic constipation Chronic hyponatremia Chronic lower back pain CKD (chronic kidney disease) stage 3, GFR 30-59 ml/min Closed fracture of right humerus (09/2019) Combined systolic and diastolic congestive heart failure Echocardiogram 01/2022: EF 35-40%, grade 1 diastolic dysfunction, technically difficult study COPD with asthma COVID-19 (~01/2022) Depression Diabetic peripheral neuropathy Eczema Encounter for servicing of pacemaker at end of battery life Frequent UTI Gallstone pancreatitis (02/04/22) Gastric ulcer Resulting in GI bleed 01/2022 Gout Hyperlipidemia Hypertension IDDM (insulin dependent diabetes mellitus) Insomnia CONTRERAS (nonalcoholic steatohepatitis) Noted on ultrasound in 2011 NSTEMI (non-ST elevated myocardial infarction) Obstructive sleep apnea Mostly noncompliant with CPAP use Osteoarthritis Peripheral artery disease Portal vein thrombosis (01/2022) Not treate
[2023-02-09] MEDS: LEVALBUTEROL NEB 1.25 MG/3 ML 2.5 MG INHALATION (00:35)
[2023-02-09] MEDS: IPRATROPIUM BR 0.02% INH SOLN 0.5 MG/2.5 ML VIAL 1.5 MG INHALATION (00:36)
[2023-02-09 00:45] LABS: Base Excess ABG 2.7 mEq/l (+/-2.0); Carboxyhemoglobin 0.9 % THb (0-2.0); Fractional Inspired Oxygen 32 %; HCO3 ABG 28.7 mEq/l (22.0-26.0); Methemoglobin ABG 0.3 %THb (0-1.5); Modified Allen's Test Pass; Oxygen Content ABG 14.5 %vol (16.0-22.0); Oxygen Saturation ABG 93.2 % (95.0-100.0); Oxyhemoglobin 91.1 % THb (90.0-100.0); PCO2 ABG 50.6 mmHg (35.0-45.0); PO2 FiO2 Ratio Arterial Blood 2.16 %; Reduced Hemoglobin 7.7 %THb (0-5.0); Site Drawn RIGHT RADIAL; Total Hemoglobin 11.3 g/dL (12.0-18.0); pH ABG 7.372 (7.350-7.450)
[2023-02-09 00:46] LABS: Device NASAL CANNULA
[2023-02-09 01:43] LABS: Basophils Absolute Auto 0.1 K/mm3 (0.0-0.1); Basophils Percent Auto 0.4 % (0.2-1.2); Eosinophils Absolute Auto 0.1 K/mm3 (0-0.3); Eosinophils Percent Auto 0.4 % (0-4.4); Hematocrit 36.3 % (37.0-47.0); Immature Granulocyte Absolute 0.07 K/mm3 (0.00-0.031); Immature Granulocyte Percent A 0.4 % (0-0.5); Lymphocytes Absolute Auto 1.09 K/mm3 (0.9-3.2); Mean Corpuscular HGB Conc 30.3 g/dl (32-36); Mean Corpuscular Hemoglobin 28.8 pg (26-34); Mean Platelet Volume 9.4 fl (7.4-10.4); Monocytes Percent Auto 6.3 % (2.6-8.5); Neutrophils Absolute Auto 13.3 K/mm3 (1.3-6.7); Neutrophils Percent Auto 85.5 % (45.5-73.1); Platelet Count Result 282 k/mm3 (150-375); Red Blood Count 3.82 M/mm3 (4.2-5.4); Red Cell Distribution Width 14.6 % (11.5-14.5); White Blood Count 15.6 K/mm3 (4.5-10.0)
[2023-02-09 01:56] LABS: Prothrombin Time 13.2 Seconds (11.1-14.7)
[2023-02-09 01:59] LABS: Alanine Aminotransferase 15 U/L (6-35); Albumin Level 3.3 g/dL (3.5-5.1); Alkaline Phosphatase 64 U/L (38-126); Anion Gap 10 mmol/L (8-16); Aspartate Amino Transferase 23 U/L (14-36); Bilirubin,Total 0.6 mg/dL (0.2-1.3); Blood Urea Nitrogen 14 mg/dL (7-17); Calcium 8.5 mg/dL (8.4-10.2); Carbon Dioxide 27 mmol/L (22-30); Chloride 98 mmol/L (98-107); Estimated CRCL calculation 38 ml/min; Estimated Glomerular Filt Rate 48; Glucose 268 mg/dL (65-110); Potassium 3.3 mmol/L (3.4-5.0); Sodium 135 mmol/L (137-145)
[2023-02-09 02:05] LABS: D Dimer 1.65 ug/mL (<0.48)
[2023-02-09 02:07] LABS: Influenza A QL RT-PCR Negative (Negative); Influenza B QL RT-PCR Negative (Negative); SARS-CoV-2 RNA PCR Negative (Negative)
[2023-02-09 02:18] LABS: NT Pro B Type Natriuretic Pept 9270 pg/mL (19.9-100); Troponin I 0.158 ng/mL (0.000-0.034)
[2023-02-09] MEDS: POTASSIUM CHLORIDE 20 MEQ PACKET (FOR LIQUID) 40 MEQ PO (02:50)
[2023-02-09] MEDS: FUROSEMIDE INJ 40 MG/4 ML VIAL IV PUSH ×3 (04:00→20:43)
[2023-02-09 06:44] LABS: Procalcitonin 0.1 ng/mL
--- NOTE | 2023-02-09 07:31 | ECHO_ITS ---
Patient Info Name: Lidia Ortega Age: 82 years : 1940 Gender: Female Ht: 63 in Wt: 193 lbs BSA: 2.01 m2 HR: 80 bpm BP: 110 / 61 mmHg Technical Quality: Poor Exam Date: 02/09/2023 10:48 AM Exam Location: Echo Lab Exam Room: 203 Patient Status: Inpatient Admit Date: 02/09/2023 Staff Ordering Physician: Sydnee Sorenson APRN [employer]angle Tender: Maribell Garcia RDCS Attending Provider: Caroline Sexton DO Referring Physician: Delta ARAMBULA; Exam Type: CA echo dop color flow w con Study Info Indications - ppm aicd chf exacerbation Complete two-dimensional, color flow and Doppler transthoracic echocardiogram is performed with contrast to opacify the left ventricle and to improve the deliniation of the left ventricle endocardial borders. Contrast/Agitated Saline Contrast/Ag. Saline: Definity Amount: 2.00 ml Administered By: Maribell Garcia [facility] Existing IV Access: Yes IV Access Condition: patent with no signs of infiltration Summary 1. Moderate left ventricular enlargement with borderline hypertrophy. Moderate global hypokinesis with akinesis of the distal inferioseptal wall, septum, and apex. Severe hypokinesis of the distal anterior wall and distal lateral wall. Thinning of the distal septum and apex. EF 25-30%. Grade 2 diastolic dysfunction. 2. There is moderate to severe mitral valve regurgitation. 3. There is mild tricuspid valve regurgitation. 4. Moderate pulmonary hypertension, estimated pulmonary arterial systolic pressure is 51 mmHg. 5. Left atrial chamber dimension is moderately enlarged. 6. Dilated inferior vena cava with >50% collapse upon inspiration consistent with elevated right atrial pressure, 15 mmHg. 7. There is trivial to small pericardial effusion. 8. Rhythm indeterminate. 9. Technically difficult study, definity echo contrast used. Left Ventricle Left ventricular chamber dimension is mildly enlarged. Left ventricular systolic function is normal, estimated at 25-30%. There is no increased left ventricular wall thickness. Left ventricular septal wall motion is normal. The left ventricular diastolic function is grade II diastolic dysfunction. Right Ventricle Right ventricular chamber dimension is normal. Right ventricular systolic function is normal. Left Atria Left atrial chamber dimension is moderately enlarged. Right Atria Right atrial chamber dimension is normal. Aortic Valve The aortic valve is trileaflet. There is mild aortic valve sclerosis. There is no aortic valve stenosis. There is trace aortic valve regurgitation. Pulmonic Valve The pulmonic valve is normal. There is no pulmonic valve stenosis. There is no pulmonic regurgitation. Mitral Valve The mitral valve has thickened leaflets. There is no mitral valve stenosis. There is moderate to severe mitral valve regurgitation. Tricuspid Valve The tricuspid valve leaflets are normal. There is no significant tricuspid valve stenosis. There is mild tricuspid valve regurgitation. Moderate pulmonary hypertension, estimated pulmonary arterial systolic pressure is 51 mmHg. Pericardium/Pleural The pericardium appears normal. There is trivial to small pericardial effusion. Inferior Vena Cava Dilated inferior vena cava with >50% collapse upon inspiration consistent with elevated right atrial pressure, 15 mmHg. Aorta The aortic root size at the sinus of Valsalva is normal. The prox ascending aorta size is normal. Left Ventricular Outflow Tract
[2023-02-09] MEDS: ALBUTEROL SULFATE NEB 2.5 MG/3 ML INH INHALATION ×3 (08:16→19:29)
[2023-02-09] MEDS: ENOXAPARIN 30 MG/0.3 ML SYRINGE SUB-Q (09:47)
[2023-02-09] MEDS: PERFLUTREN LIPID MICROSPHERES 1.5 ML VIAL DILUTED TO 10 ML TOTAL VOLUME IV PUSH (11:15)
--- NOTE | 2023-02-09 11:53 | IVDEFINITY ---
Prior to administration of IV Definity the patient was educated on the risks and benefits of the imaging enhancing agent including potential adverse side effects. The patient verbalized understanding. Allergies were verified. No exclusion criteria were identified and at least one of the following inclusion criteria were met: 1) physician request, 2) patient technically difficult to image (per the [place] [employer]chocardi[employer] guidelines of two or more segments not discernable within the apical view), or 3) questionable left ventricular function. ?
[2023-02-09] MEDS: NITROFURANTOIN MONOHYD MACROCR 100 MG CAP PO ×2 (14:14→20:46)
[2023-02-09] MEDS: POTASSIUM CHLORIDE 20 MEQ ER TABLET 40 MEQ PO (14:14)
[2023-02-09] MEDS: lisinopriL 10 MG TABLET PO (14:14)
[2023-02-09] MEDS: CYANOCOBALAMIN 500 MCG TABLET PO (14:14)
[2023-02-09] MEDS: MULTIVITAMINS THERAPEUTIC TAB (*BKC) 1 TABLET PO (14:14)
[2023-02-09] MEDS: hydrOXYzine HCL 25 MG TABLET PO (14:14)
[2023-02-09] MEDS: PANTOPRAZOLE 40 MG TABLET PO ×2 (14:14→21:22)
[2023-02-09] MEDS: ASCORBIC ACID 250 MG TABLET PO (14:14)
[2023-02-09] MEDS: ASPIRIN 81 MG ENTERIC TABLET PO (14:15)
[2023-02-09] MEDS: CITALOPRAM HYDROBROMIDE 20 MG TABLET BY MOUTH (14:15)
[2023-02-09 16:00] LABS: Anion Gap 7 mmol/L (8-16); Blood Urea Nitrogen 15 mg/dL (7-17); Carbon Dioxide 30 mmol/L (22-30); Chloride 93 mmol/L (98-107); Estimated CRCL calculation 35 ml/min; Estimated Glomerular Filt Rate 43; Glucose 294 mg/dL (65-110); Magnesium 1.6 mg/dL (1.6-2.3); Potassium 3.7 mmol/L (3.4-5.0); Sodium 130 mmol/L (137-145)
[2023-02-09 16:13] LABS: Hemoglobin A1C 8.4 % (<5.7)
--- NOTE | 2023-02-09 16:18 | PM.IMHP ---
H&P: HPI History of Present Illness Date/Time: 02/09/23 1130 Chief Complaint: Shortness of breath Narrative: This is an 82-year-old female with a past medical history significant for CAD s/p pacer-defib, CKD stage 3, COPD with asthma, depression, hyperlipidemia, hypertension, diabetes, Contreras, NSTEMI, SARAH, and gastric bypass. She presented to the ER on 02/08 from [facility] with acute shortness of breath and was found to be hypoxic requiring oxygen. She reports having an increased cough without sputum production and dizziness. She states that the shortness of breath came on all of a sudden and nothing seemed to precipitate the event. Her SOB has improved with oxygen and IV Lasix. She denies fever, sputum production, chest pain, h/a, nausea, vomiting, diarrhea, constipation, and increased lower extremity edema. She does have +1 BLE edema but she feels this is her baseline. She also has been complaining of itching for the past few days. I spoke with her son, Mak who said that the patient normally lives with him but she was recently hospitalized at [facility] for UTI and an 'ulcer' in December. He says she had a scope but is unsure what the findings were. She was started on PPI and Macrobid for UTI prophylaxis. She was discharged on 01/18 to [facility] for SNF and was set to d/c back home the day before . In the ED her ABG showed mild CO2 retention, pCO2 50, sat 93% on 3 L NC. EKG with nonspecific ST changes, no definite ST elevation or depression. Troponins were elevated 0.158 but denying chest pain. CXR showed central congestive changes and mild interstitial edema. CTA was completed due to elevated d-dimer. No evidence of PE, dissection, or aneurysm; small to moderate bilateral pleural effusions with right greater than left, partial lower lobe atelectasis, and minimal interstitial pulmonary edema. She was given IV lasix and nebulizers with improvement in SOB. She was negative for COVID, RSV, and FLU. 1600-Troponin continues to increase. Spoke with Dr Skinner with cardiology for formal consult. Will start on heparin gtt for NSTEMI. Patient does not complain of chest pain. Review of Systems Review of Systems: All systems reviewed & are unremarkable except as noted in HPI and below PMFSH Past Medical History Medical History Anxiety Arthritis B12 deficiency BPPV (benign paroxysmal positional vertigo) CAD (coronary artery disease) Chronic constipation Chronic hyponatremia Chronic lower back pain CKD (chronic kidney disease) stage 3, GFR 30-59 ml/min Closed fracture of right humerus (09/2019) Combined systolic and diastolic congestive heart failure Echocardiogram 01/2022: EF 35-40%, grade 1 diastolic dysfunction, technically difficult study COPD with asthma COVID-19 (~01/2022) Depression Diabetic peripheral neuropathy Eczema Encounter for servicing of pacemaker at end of battery life Frequent UTI Gallstone pancreatitis (02/04/22) Gastric ulcer Resulting in GI bleed 01/2022 Gout Hyperlipidemia Hypertension IDDM (insulin dependent diabetes mellitus) Insomnia CONTRERAS (nonalcoholic steatohepatitis) Noted on ultrasound in 2011 NSTEMI (non-ST elevated myocardial infarction) Obstructive sleep apnea Mostly noncompliant with CPAP use Osteoarthritis Peripheral artery disease Portal vein thrombosis (01/2022) Not treated due to active GI bleed of the time Reflux esophagitis Seasonal allergies Type 2 diabetes mellitus Historically uncontrolled hemoglobin A1c 9% on 08/21/2022 Vitamin D deficiency Surgical History Surgical History Gastric bypass status for obesity (~2001) History of appendectomy History of Abigail-en-Y gastric bypass 2001 per review of EMR by hospitalist; Patient states performed at [place] History of total hysterectomy with bilateral salpingo-oophorectomy (BSO) For benign disease History of ventral hernia rep
[2023-02-09] MEDS: FERROUS SULFATE 325 MG TABLET DR PO (16:52)
[2023-02-09] MEDS: INSULIN ASPART (*BKC) 100 UNITS/ML SUB-Q (16:52)
[2023-02-09] MEDS: SUCRALFATE 1 GM TABLET PO ×2 (16:52→20:46)
[2023-02-09 18:00] LABS: Basophils Absolute Auto 0.1 K/mm3 (0.0-0.1); Basophils Percent Auto 0.5 % (0.2-1.2); Eosinophils Absolute Auto 0.1 K/mm3 (0-0.3); Eosinophils Percent Auto 0.9 % (0-4.4); Hematocrit 31.8 % (37.0-47.0); Hemoglobin 9.7 g/dL (12.0-15.0); Immature Granulocyte Absolute 0.04 K/mm3 (0.00-0.031); Immature Granulocyte Percent A 0.4 % (0-0.5); Lymphocytes Absolute Auto 0.98 K/mm3 (0.9-3.2); Lymphocytes Percent Auto 8.9 % (18.3-44.2); Mean Corpuscular HGB Conc 30.5 g/dl (32-36); Mean Corpuscular Volume 91.9 fl (80-100); Mean Platelet Volume 9.6 fl (7.4-10.4); Monocytes Percent Auto 8.9 % (2.6-8.5); Neutrophils Absolute Auto 8.9 K/mm3 (1.3-6.7); Neutrophils Percent Auto 80.4 % (45.5-73.1); Platelet Count Result 270 k/mm3 (150-375); Red Blood Count 3.46 M/mm3 (4.2-5.4); Red Cell Distribution Width 14.7 % (11.5-14.5); White Blood Count 11.1 K/mm3 (4.5-10.0)
[2023-02-09 18:10] LABS: Cholesterol 126 mg/dL (0-200); HDL Direct 49 mg/dL; Triglycerides 76 mg/dL (<150)
[2023-02-09 18:22] LABS: LDL Cholesterol Direct 56 mg/dL
[2023-02-09] MEDS: HEPARIN SOD/D5W 100 UNITS/ML 25,000 UNITS/250 ML BAG 8 UNITS IV CONT (18:47)
[2023-02-09 18:57] LABS: INR 1.1; Prothrombin Time 14.5 Seconds (11.1-14.7)
[2023-02-09 18:58] LABS: Glucose Point of Care 264 mg/dl (65-105)
[2023-02-09 18:58] LABS: Partial Thromboplastin Time 29.2 SECONDS (22.3-36.8)
--- NOTE | 2023-02-09 19:56 | ADMGEN ---
This patient, Lidia Ortega, was admitted to IMU Room 203-01 at 0930. Patient/family oriented to hospital policies and general routines including ID bracelet, bed and alarms, visiting hours, pain management, procedures, bathroom and other care routines, personal items, smoking policy, room service/diet, and visiting hours. Information on how to activate the Rapid Response Team has been discussed. Patient/Family are encouraged to report perceived risks to care and to ask questions if they do not understand what they are told or what they should do.
[2023-02-09 20:34] LABS: Glucose Point of Care 162 mg/dl (65-105)
[2023-02-09] MEDS: ROSUVASTATIN 10 MG TABLET 20 MG PO (20:46)
[2023-02-09 20:50] LABS: Appearance Urine Cloudy (Clear); Bacteria Urine Rare /hpf; Bilirubin Urine Negative (Negative); Blood Urine 1+ (Negative); Color Urine Yellow (Yellow); Glucose Urine UA Negative (Negative); Ketones Urine Negative (Negative); Leukocyte Esterase Ur 3+ LEU/UL (Negative); Nitrate Urine Negative (Negative); Non Pathogenic Casts 0-2; Protein Urine Trace mg/dL (Negative); RBC Urine 0-2 /hpf (0-2); Specific Grav Ur 1.011 (1.001-1.035); Squamous Epithelial Cell Urine None seen /hpf (Few); Urobilinogen Urine 0.2 mg/dL (<2.0); WBC Urine >100 /hpf
[2023-02-09 20:54] LABS: Add Urine Microscopic? YES
[2023-02-09] MEDS: INSULIN GLARGINE (*BKC) 100 UNITS/ML 25 UNITS SUB-Q (21:14)
[2023-02-10] VITALS (28 sets, daily range): BP systolic 126–142; BP diastolic 48–61; PULSE 63–109; RESP 16–20; TEMP 36.3–36.5; O2SAT 86–100
--- NOTE | 2023-02-10 | ECG_ITS ---
Measurements Intervals [place] Rate: 80 P: 28 OH: 156 QRS: -29 QRSD: 126 T: 69 QT: 463 QTc: 534 Interpretive Statements SINUS RHYTHM ATRIAL PREMATURE COMPLEXES RIGHT BUNDLE BRANCH BLOCK ANTEROSEPTAL INFARCT, AGE INDETERMINATE ABNORMAL ECG COMPARED TO ECG 02/09/2023 00:00:41 MYOCARDIAL INFARCT FINDING NOW PRESENT Electronically Signed On 02-10-2023 14:35:29 DIRECTOR CPG by John Luong D.O.
[2023-02-10 01:25] LABS: Partial Thromboplastin Time 39.5 SECONDS (22.3-36.8)
[2023-02-10] MEDS: HEPARIN SODIUM 5,000 UNITS/ML VIAL 4000 UNITS IV PUSH (01:54)
[2023-02-10] MEDS: ALBUTEROL SULFATE NEB 2.5 MG/3 ML INH INHALATION ×4 (02:14→20:53)
[2023-02-10 06:18] LABS: Alveolar/Arterial O2 Gradient 70.1 mmHg; Base Excess ABG 10.2 mEq/l (+/-2.0); Fractional Inspired Oxygen 28 %; HCO3 ABG 34.2 mEq/l (22.0-26.0); Oxygen Content ABG 15.4 %vol (16.0-22.0); Oxygen Saturation ABG 96.5 % (95.0-100.0); PCO2 ABG 43.7 mmHg (35.0-45.0); PO2 FiO2 Ratio Arterial Blood 2.79 %; Total Hemoglobin 11.5 g/dL (12.0-18.0)
[2023-02-10 06:27] LABS: Device NASAL CANNULA; Modified Allen's Test Pass; Site Drawn RIGHT RADIAL; pH ABG 7.512 (7.350-7.450)
[2023-02-10 08:19] LABS: Basophils Absolute Auto 0.1 K/mm3 (0.0-0.1); Basophils Percent Auto 0.7 % (0.2-1.2); Eosinophils Absolute Auto 0.1 K/mm3 (0-0.3); Eosinophils Percent Auto 1.5 % (0-4.4); Hematocrit 34.5 % (37.0-47.0); Hemoglobin 10.7 g/dL (12.0-15.0); Immature Granulocyte Absolute 0.02 K/mm3 (0.00-0.031); Immature Granulocyte Percent A 0.2 % (0-0.5); Lymphocytes Absolute Auto 1.12 K/mm3 (0.9-3.2); Lymphocytes Percent Auto 12.9 % (18.3-44.2); Mean Corpuscular Hemoglobin 28.2 pg (26-34); Mean Platelet Volume 9.5 fl (7.4-10.4); Monocytes Absolute Auto 0.8 K/mm3 (0.1-0.6); Monocytes Percent Auto 9.3 % (2.6-8.5); Neutrophils Absolute Auto 6.6 K/mm3 (1.3-6.7); Neutrophils Percent Auto 75.4 % (45.5-73.1); Platelet Count Result 267 k/mm3 (150-375); Red Blood Count 3.79 M/mm3 (4.2-5.4); Red Cell Distribution Width 14.8 % (11.5-14.5); White Blood Count 8.7 K/mm3 (4.5-10.0)
[2023-02-10 08:31] LABS: Alanine Aminotransferase 14 U/L (6-35); Albumin Level 3.1 g/dL (3.5-5.1); Alkaline Phosphatase 66 U/L (38-126); Anion Gap 3 mmol/L (8-16); Aspartate Amino Transferase 34 U/L (14-36); Bilirubin,Total 0.7 mg/dL (0.2-1.3); Blood Urea Nitrogen 14 mg/dL (7-17); Calcium 8.5 mg/dL (8.4-10.2); Carbon Dioxide 36 mmol/L (22-30); Chloride 96 mmol/L (98-107); Estimated CRCL calculation 32 ml/min; Estimated Glomerular Filt Rate 43; Glucose 168 mg/dL (65-110); Sodium 135 mmol/L (137-145)
[2023-02-10 08:32] LABS: Partial Thromboplastin Time 91.1 SECONDS (22.3-36.8)
--- NOTE | 2023-02-10 08:55 | PM.IMPN ---
Progress Note: A&P Assessment and Plan (1) Combined systolic and diastolic congestive heart failure: Qualifiers: Heart failure chronicity: chronic Qualified Code(s): I50.42 - Chronic combined systolic (congestive) and diastolic (congestive) heart failure Code(s): I50.40 - Unspecified combined systolic (congestive) and diastolic (congestive) heart failure Status: Chronic Assessment and Plan: Follows with cardiology at [facility]. BNP 9270 on admission CTA shows [id number] bilateral pleural effusions, right greater than left, with bilateral partial lower lobe atelectasis, and minimal interstitial pulmonary edema. Hypoxia 75% on room air in the field. Improved with 4 L NC to > 92%. Not normally on oxygen. Daily weights Strict I&O's Fluid restriction 1.5 L daily Coarse crackles on exam ECHO from 01/2022 with EF with 35-40%. Repeat ECHO ordered and report as followed, Summary ? 1. Moderate left ventricular enlargement with borderline hypertrophy. Moderate global hypokinesis with akinesis of the distal inferioseptal wall, septum, and apex. ? Severe hypokinesis of the distal anterior wall and distal lateral wall.? Thinning of the distal septum and apex.? EF 25-30%.? Grade 2 diastolic dysfunction. ? 2. There is moderate to severe mitral valve regurgitation. ? 3. There is mild tricuspid valve regurgitation. ? 4. Moderate pulmonary hypertension, estimated pulmonary arterial systolic pressure is 51 mmHg. ? 5. Left atrial chamber dimension is moderately enlarged. ? 6. Dilated inferior vena cava with >50% collapse upon inspiration consistent with elevated right atrial pressure, 15 mmHg. ? 7. There is trivial to small pericardial effusion. ? 8. Rhythm indeterminate. ? 9. Technically difficult study, definity echo contrast used. 02/09: SOB has improved with IV lasix and oxygen. Lung sounds are diminished with improving fine crackles to bilateral bases. 02/10: On room air and satting 97%. Patient had some desaturations at night with sleep. Nursing has concerns for SARHA, will order apnea link. Continue with IV lasix 40 mg BID per cardiology. (2) Acute respiratory failure with hypoxia: Code(s): J96.01 - Acute respiratory failure with hypoxia Status: Acute Assessment and Plan: SOB with crackles and non-productive sputum likely CHF exacerbation currently on oxygen at 3 L NC. Wean as tolerated to keep oxygen > 92%. ABG on arrival was ph 7.37/pCO2 50.6/pO2 69/HCO3 28.7 COPD and SARAH hx. CPAP at HS with autotitration. Continuous pulse ox Apnea link tonight to assess for nocturnal oxygen needs. 02/10: On room air, sating 97%. (3) NSTEMI (non-ST elevated myocardial infarction): Code(s): I21.4 - Non-ST elevation (NSTEMI) myocardial infarction Status: Acute Assessment and Plan: EKG on admission reports sinus rhythm with left axis deviation, possible left atrial enlargement, right bundle branch block, with non-specific ST wave changes. Patient denies chest pain Trending troponin given elevation on admission. 0.158-->1.220-->4.200 On telemetry with prn EKG for acute chest pain NSTEMI-started on heparin gtt per protocol Already on ASA 81 mg daily Cardiology has been consulted and recommendations are appreciated. 02/10: Troponin have peaked at 4.200 and starting to downtrend this morning. Now 3.730. Cards would like to avoid cardiac cath at this time due to her CKD. Discontinue heparin gtt in the morning. Repeat EKG for ischemic changes. Should anginal-type discomfort occur or another acute dyspnea episode will reconsider cardiac cath. Follow up with Dr Bradshaw, grinder watch parts as an outpatient. Changing lisinopril to Entresto, add metoprolol, spironolactone, continue with ASA and statin. (4) CKD (chronic kidney disease): Qualifiers: Chronic kidney disease stage: unspecified stage Qualified Code(s): N18.9 - Chronic kidney disease
[2023-02-10 09:02] LABS: Glucose Point of Care 161 mg/dl (65-105)
[2023-02-10] MEDS: SUCRALFATE 1 GM TABLET PO ×4 (09:20→20:57)
[2023-02-10] MEDS: CITALOPRAM HYDROBROMIDE 20 MG TABLET BY MOUTH (09:20)
[2023-02-10] MEDS: ASCORBIC ACID 250 MG TABLET PO (09:20)
[2023-02-10] MEDS: ASPIRIN 81 MG ENTERIC TABLET PO (09:20)
[2023-02-10] MEDS: NITROFURANTOIN MONOHYD MACROCR 100 MG CAP PO ×2 (09:20→20:58)
[2023-02-10] MEDS: EUCERIN CREAM 120 GM JAR 1 APPLIC TOPICAL (09:21)
[2023-02-10] MEDS: FERROUS SULFATE 325 MG TABLET DR PO ×2 (09:21→18:07)
[2023-02-10] MEDS: MULTIVITAMINS THERAPEUTIC TAB (*BKC) 1 TABLET PO (09:21)
[2023-02-10] MEDS: PANTOPRAZOLE 40 MG TABLET PO ×2 (09:21→20:58)
[2023-02-10] MEDS: CYANOCOBALAMIN 500 MCG TABLET PO (09:21)
[2023-02-10] MEDS: lisinopriL 10 MG TABLET PO (09:21)
[2023-02-10] MEDS: POTASSIUM CHLORIDE 20 MEQ ER TABLET 40 MEQ PO (09:21)
--- NOTE | 2023-02-10 11:33 | PM.CNCAR ---
Assessment and Plan Assessment and plan (1) Acute combined systolic and diastolic heart failure: Code(s): I50.41 - Acute combined systolic (congestive) and diastolic (congestive) heart failure Status: Acute Assessment and Plan: Patient presents with acute systolic and diastolic heart failure. Has underlying ischemic cardiomyopathy and known CAD. On fairly minimal therapy with lisinopril. Responding well to diuretic therapy. --continue IV furosemide 40 mg b.i.d.. --daily BMP (2) Elevated troponin: Code(s): R79.89 - Other specified abnormal findings of blood chemistry Status: Acute Assessment and Plan: Patient has elevated troponins with a rise and fall. Unclear if this is nonischemic myocardial injury due to patient's hypoxia, or and non-STEMI. The patient has not had any anginal-type discomfort and she does not have any ischemic EKG changes that would be more consistent with a non-STEMI. She does have small effusions suggesting this is more longstanding process. Trying to avoid cardiac catheterization because of her chronic kidney disease. --discontinue heparin in a.m. --repeat EKG looking for any new ischemic changes. --if the patient has anginal-type discomfort or another acute dyspnea, reconsider cardiac catheterization --follow-up with usual driver salesman, , soon after discharge. (3) Ischemic cardiomyopathy: Code(s): I25.5 - Ischemic cardiomyopathy Status: Acute Assessment and Plan: Ischemic cardiomyopathy with a fall in ejection fraction recently. Currently on fairly minimal therapy. Blood pressure looks like it could tolerate more aggressive treatment. --change lisinopril to Entresto --add metoprolol, spironolactone as BP permits --Cont ASA and statin --follow-up with usual driver salesman soon after discharge. (4) CKD (chronic kidney disease) stage 3, GFR 30-59 ml/min: Code(s): N18.30 - Chronic kidney disease, stage 3 unspecified Status: Acute Assessment and Plan: --Daily BMP (5) Mitral regurgitation: Code(s): I34.0 - Nonrheumatic mitral (valve) insufficiency Status: Acute Assessment and Plan: Moderate to severe MR on this Echo; murmur not terribly impressive. Follow clinically and w/ serial echos. (6) History of implantable cardiac defibrillator (ICD): Code(s): Z95.810 - Presence of automatic (implantable) cardiac defibrillator Status: Acute Assessment and Plan: Followed by [facility] History of Present Illness History of Present Illness Consult date/time: 02/10/23 11:33 Reason For Visit: shortness of breath Narrative: Ms. Lidia Ortega is an 82 y.o. female whom we were asked to see at the request of nurse practitioner Sydnee Sorenson. She is followed by [facility] (Dr. Mehta) for her CHF and CAD. H/O HTN. She had a [employer]otron[employer] ICD with a generator change in November 2022. Cardiac catheterization in 2010 showed an occluded Left anterior descending, 60% stenosis of the circumflex and some diffuse disease of the right coronary artery and a stress test in 2019 showed a large anterior apical defect with left ventricular dysfunction, and she has been treated medically.. Patient lives at [facility] and reports acute shortness of breath yesterday evening. She was in bed and apparently was short of breath for in our, EMS was called and her O2 sat was o2 sat was 75% on room air when EMS arrived. She was started on O2 and brought to the emergency room she improved with this, nebulizers, and furosemide. Her troponins have increased to 4.2 and she was started on heparin drip. She denied any type of chest pain pressure or tightness. She has chronic lower extremity edema which has worsened recently. No h/o anginal pain or TNG use. She denied any other recent problems with PND orthopnea. Chronic STOVALL. Troponins were 0.16, 1.2, 2.6, 4.2 and 3.7.
[2023-02-10 12:04] LABS: Glucose Point of Care 180 mg/dl (65-105)
--- NOTE | 2023-02-10 13:22 | ECG_ITS ---
Measurements Intervals [place] Rate: 89 P: 48 NE: 153 QRS: -31 QRSD: 124 T: 71 QT: 427 QTc: 522 Interpretive Statements SINUS RHYTHM LEFT AXIS DEVIATION POSSIBLE LEFT ATRIAL ENLARGEMENT RIGHT BUNDLE BRANCH BLOCK ANTEROSEPTAL MYOCARDIAL INFARCTION , OF INDETERMINATE AGE [40+ ms Q WAVE IN V1-V4] ABNORMAL ECG COMPARED TO ECG 02/10/2023 09:55:24 LEFT-AXIS DEVIATION NOW PRESENT Electronically Signed On 02-10-2023 15:50:51 DIALS SUPERVISOR by John Luong D.O.
[2023-02-10] MEDS: hydrOXYzine HCL 25 MG TABLET PO ×2 (13:28→20:58)
[2023-02-10] MEDS: FUROSEMIDE INJ 40 MG/4 ML VIAL IV PUSH ×2 (13:28→21:11)
[2023-02-10 14:59] LABS: Partial Thromboplastin Time 71.7 SECONDS (22.3-36.8)
[2023-02-10 17:22] LABS: Glucose Point of Care 286 mg/dl (65-105)
[2023-02-10] MEDS: INSULIN ASPART (*BKC) 100 UNITS/ML SUB-Q ×2 (18:07→21:08)
[2023-02-10] MEDS: HEPARIN SOD/D5W 100 UNITS/ML 25,000 UNITS/250 ML BAG 11 UNITS IV CONT (18:12)
[2023-02-10 20:44] LABS: Glucose Point of Care 213 mg/dl (65-105)
[2023-02-10] MEDS: METOPROLOL TARTRATE 25 MG TABLET PO (20:57)
[2023-02-10] MEDS: ROSUVASTATIN 10 MG TABLET 20 MG PO (20:57)
[2023-02-10] MEDS: INSULIN GLARGINE (*BKC) 100 UNITS/ML 25 UNITS SUB-Q (21:07)
[2023-02-10] MEDS: MICONAZOLE NITRATE 2% VAGINAL CREAM 45 GM TUBE 1 APPFUL VAGINAL (22:10)
[2023-02-11] VITALS (18 sets, daily range): BP systolic 108–132; BP diastolic 37–65; PULSE 60–110; RESP 16–20; TEMP 36.2–36.4; O2SAT 90–100
[2023-02-11 05:37] LABS: Basophils Absolute Auto 0.1 K/mm3 (0.0-0.1); Basophils Percent Auto 1.1 % (0.2-1.2); Eosinophils Absolute Auto 0.3 K/mm3 (0-0.3); Hematocrit 37.8 % (37.0-47.0); Hemoglobin 11.8 g/dL (12.0-15.0); Immature Granulocyte Absolute 0.03 K/mm3 (0.00-0.031); Immature Granulocyte Percent A 0.3 % (0-0.5); Lymphocytes Percent Auto 12.6 % (18.3-44.2); Mean Corpuscular HGB Conc 31.2 g/dl (32-36); Mean Corpuscular Hemoglobin 28.4 pg (26-34); Mean Corpuscular Volume 91.1 fl (80-100); Mean Platelet Volume 10.5 fl (7.4-10.4); Monocytes Percent Auto 10.9 % (2.6-8.5); Neutrophils Absolute Auto 6.3 K/mm3 (1.3-6.7); Neutrophils Percent Auto 72.1 % (45.5-73.1); Platelet Count Result 328 k/mm3 (150-375); Red Blood Count 4.15 M/mm3 (4.2-5.4); Red Cell Distribution Width 14.7 % (11.5-14.5); White Blood Count 8.7 K/mm3 (4.5-10.0)
[2023-02-11 05:51] LABS: Partial Thromboplastin Time 64.3 SECONDS (22.3-36.8)
[2023-02-11 05:56] LABS: Alanine Aminotransferase 13 U/L (6-35); Albumin Level 3.2 g/dL (3.5-5.1); Alkaline Phosphatase 64 U/L (38-126); Anion Gap 6 mmol/L (8-16); Aspartate Amino Transferase 27 U/L (14-36); Bilirubin,Total 0.9 mg/dL (0.2-1.3); Blood Urea Nitrogen 18 mg/dL (7-17); Carbon Dioxide 36 mmol/L (22-30); Chloride 91 mmol/L (98-107); Estimated CRCL calculation 29 ml/min; Estimated Glomerular Filt Rate 36; Glucose 177 mg/dL (65-110); Potassium 4.2 mmol/L (3.4-5.0); Sodium 133 mmol/L (137-145)
[2023-02-11] MEDS: ALBUTEROL SULFATE NEB 2.5 MG/3 ML INH INHALATION ×3 (08:36→20:14)
[2023-02-11 08:42] LABS: Glucose Point of Care 265 mg/dl (65-105)
[2023-02-11] MEDS: CITALOPRAM HYDROBROMIDE 20 MG TABLET BY MOUTH (09:31)
[2023-02-11] MEDS: SPIRONOLACTONE 25 MG TABLET PO (09:31)
[2023-02-11] MEDS: METOPROLOL TARTRATE 25 MG TABLET PO ×2 (09:31→21:49)
[2023-02-11] MEDS: MULTIVITAMINS THERAPEUTIC TAB (*BKC) 1 TABLET PO (09:31)
[2023-02-11] MEDS: ASPIRIN 81 MG ENTERIC TABLET PO (09:31)
[2023-02-11] MEDS: PANTOPRAZOLE 40 MG TABLET PO ×2 (09:31→21:49)
[2023-02-11] MEDS: ASCORBIC ACID 250 MG TABLET PO (09:31)
[2023-02-11] MEDS: NITROFURANTOIN MONOHYD MACROCR 100 MG CAP PO ×2 (09:31→21:48)
[2023-02-11] MEDS: SUCRALFATE 1 GM TABLET PO ×4 (09:32→21:48)
[2023-02-11] MEDS: FUROSEMIDE INJ 40 MG/4 ML VIAL IV PUSH ×2 (09:32→21:50)
[2023-02-11] MEDS: POTASSIUM CHLORIDE 20 MEQ ER TABLET 40 MEQ PO (09:32)
[2023-02-11] MEDS: CYANOCOBALAMIN 500 MCG TABLET PO (09:32)
[2023-02-11] MEDS: FERROUS SULFATE 325 MG TABLET DR PO ×2 (09:32→17:04)
[2023-02-11] MEDS: INSULIN ASPART (*BKC) 100 UNITS/ML SUB-Q ×5 (09:33→17:05)
[2023-02-11] MEDS: EUCERIN CREAM 120 GM JAR 1 APPLIC TOPICAL (09:33)
--- NOTE | 2023-02-11 09:39 | PM.IMPN ---
Progress Note: A&P Assessment and Plan (1) Combined systolic and diastolic congestive heart failure: Qualifiers: Heart failure chronicity: chronic Qualified Code(s): I50.42 - Chronic combined systolic (congestive) and diastolic (congestive) heart failure Code(s): I50.40 - Unspecified combined systolic (congestive) and diastolic (congestive) heart failure Status: Chronic Assessment and Plan: Follows with cardiology at [facility]. BNP 9270 on admission CTA shows [id number] bilateral pleural effusions, right greater than left, with bilateral partial lower lobe atelectasis, and minimal interstitial pulmonary edema. Hypoxia 75% on room air in the field. Improved with 4 L NC to > 92%. Not normally on oxygen. Daily weights Strict I&O's Fluid restriction 1.5 L daily ECHO from 01/2022 with EF with 35-40%. Repeat ECHO ordered and report as followed, Summary ? 1. Moderate left ventricular enlargement with borderline hypertrophy. Moderate global hypokinesis with akinesis of the distal inferioseptal wall, septum, and apex. ? Severe hypokinesis of the distal anterior wall and distal lateral wall.? Thinning of the distal septum and apex.? EF 25-30%.? Grade 2 diastolic dysfunction. ? 2. There is moderate to severe mitral valve regurgitation. ? 3. There is mild tricuspid valve regurgitation. ? 4. Moderate pulmonary hypertension, estimated pulmonary arterial systolic pressure is 51 mmHg. ? 5. Left atrial chamber dimension is moderately enlarged. ? 6. Dilated inferior vena cava with >50% collapse upon inspiration consistent with elevated right atrial pressure, 15 mmHg. ? 7. There is trivial to small pericardial effusion. ? 8. Rhythm indeterminate. ? 9. Technically difficult study, definity echo contrast used. 02/09: SOB has improved with IV lasix and oxygen. Lung sounds are diminished with improving fine crackles to bilateral bases. 02/10: On room air and satting 97%. Patient had some desaturations at night with sleep. Nursing has concerns for SARAH, will order apnea link. Continue with IV lasix 40 mg BID per cardiology. 02/11: Appreciate cardiology recs - will continue with diuresis and medical management. Avoid cath d/t CKD if possible. (2) Acute respiratory failure with hypoxia: Code(s): J96.01 - Acute respiratory failure with hypoxia Status: Acute Assessment and Plan: SOB with crackles and non-productive sputum likely CHF exacerbation currently on oxygen at 3 L NC. Wean as tolerated to keep oxygen > 92%. ABG on arrival was ph 7.37/pCO2 50.6/pO2 69/HCO3 28.7 COPD and SARAH hx. CPAP at HS with autotitration. Continuous pulse ox Apnea link tonight to assess for nocturnal oxygen needs. 02/10: On room air, sating 97%. 02/11: Room air with stable O2 sats. (3) NSTEMI (non-ST elevated myocardial infarction): Code(s): I21.4 - Non-ST elevation (NSTEMI) myocardial infarction Status: Acute Assessment and Plan: EKG on admission reports sinus rhythm with left axis deviation, possible left atrial enlargement, right bundle branch block, with non-specific ST wave changes. Patient denies chest pain Trending troponin given elevation on admission. 0.158-->1.220-->4.200 On telemetry with prn EKG for acute chest pain NSTEMI-started on heparin gtt per protocol Already on ASA 81 mg daily Cardiology has been consulted and recommendations are appreciated. 02/10: Troponin have peaked at 4.200 and starting to downtrend this morning. Now 3.730. Cards would like to avoid cardiac cath at this time due to her CKD. Discontinue heparin gtt in the morning. Repeat EKG for ischemic changes. Should anginal-type discomfort occur or another acute dyspnea episode will reconsider cardiac cath. Follow up with Dr Bradshaw, survey research center director as an outpatient. Changing lisinopril to Entresto, add metoprolol, spironolactone, continue with ASA and statin. 02/11: No chest pain. To
--- NOTE | 2023-02-11 10:15 | PM.PNCARD ---
Progress Note: A&P Assessment and Plan (1) Ischemic cardiomyopathy: Code(s): I25.5 - Ischemic cardiomyopathy Status: Acute Plan This is an 82-year-old lady with a well-established history of coronary disease and a ischemic myopathy with previous infarction and low ejection fraction. She has had a reasonably good clinical response to more aggressive medical therapy for left ventricular systolic dysfunction. JV-inhibitor has been replaced with Entresto she has been started on modest dose of metoprolol and spironolactone. Suggest another 24 hours or so in the hospital to ensure stability otherwise I believe in the next day or 2 she can be discharged and follow-up should be arranged with her established global commodity manager. Agree with Dr. Gallagher's impression that angiographic assessment is to be avoided in the setting of chronic kidney disease at this time Atif Estrada MD [facility] Subjective Date/time seen: Date of service: 02/11/23 10:15 Interval history: Follow-up visit in this 82-year-old woman with: Severe ischemic cardiomyopathy entering the hospital with shortness of breath apparent CHF exacerbation. Modest troponin rise no other clinical evidence of AMI/ACS She says she feels better today in terms of being notably less short of breath. Appears to be comfortable seated in the bedside chair watching television as I entered the room Exam Const: Other: Pleasant obese elderly lady no distress HENMT: Mouth: Yes moist mucous membranes Eyes: Sclera: sclerae normal Neck: Neck: supple Resp: Effort & Inspection: normal respiratory effort Auscultation: clear to auscultation bilaterally Other: Breath sounds are relatively clear at this time no notable wheezing rales or rhonchi Cardio: Rate: regular rate Rhythm: regular rhythm Other: No murmur, S3 is audible GI: GI Palp: Yes Soft to palpation Auscultation: normal bowel sounds Skin: General skin exam: normal color Neuro: Other: Alert and oriented x3 Extrem: Other: Chronic appearing lower extremity edema Objective Data Vital Signs Vital Signs: Vital Signs - 24 hr 02/10/23 11:52 02/10/23 14:40 02/10/23 14:50 Temperature 36.4 C L Pulse Rate 79 86 84 Respiratory Rate 18 20 20 Blood Pressure 139/61 Pulse Oximetry 93 Oxygen Delivery Fraction of Inspired Oxygen 02/10/23 16:00 02/10/23 12:00 02/10/23 14:00 Temperature 36.4 C L Pulse Rate 85 72 84 Respiratory Rate 16 Blood Pressure 126/49 L Pulse Oximetry 93 Oxygen Delivery Fraction of Inspired Oxygen 02/10/23 16:00 02/10/23 18:00 02/10/23 12:00 Temperature Pulse Rate 84 80 Respiratory Rate Blood Pressure Pulse Oximetry Oxygen Delivery Room Air Fraction of Inspired Oxygen 02/10/23 16:00 02/10/23 19:49 02/10/23 16:49 Temperature 36.4 C L Pulse Rate 77 85 Respiratory Rate 16 Blood Pressure 134/51 L Pulse Oximetry 95 Oxygen Delivery Room Air Fraction of Inspired Oxygen 02/10/23 20:53 02/10/23 20:59 02/10/23 20:57 Temperature Pulse Rate 74 70 74 Respiratory Rate 20 20 Blood Pressure Pulse Oximetry Oxygen Delivery Fraction of Inspired Oxygen 02/10/23 22:14 02/10/23 20:00 02/10/23 23:14 Temperature 36.4 C L Pulse Rate 70 63 Respiratory Rate 20 16 Blood Pressure 126/48 L Pulse Oximetry 98 98 97 Oxygen Delivery Room Air Room Air Fraction of Inspired Oxygen 21 02/11/23 00:00 02/10/23 20:00 02/10/23 22:00 Temperature Pulse Rate 63 106 H 67 Respiratory Rate 16 Blood Pressure Pulse Oximetry 97 Oxygen Delivery Room Air Fraction of Inspired Oxygen 02/11/23 00:00 02/11/23 03:40 02/11/23 04:00 Temperature 36.4 C L Pulse Rate 66 66 66 Respiratory Rate 16 16 Blood Pressure 130/49 L Pulse Oximetry 94 94 Oxygen Delivery Room Air Fraction of Inspired Oxygen 02/11/23 04:00 02/11/23 07:48 02/11/23 08:36 [facility]
[2023-02-11 11:48] LABS: Glucose Point of Care 243 mg/dl (65-105)
[2023-02-11] MEDS: ENOXAPARIN 30 MG/0.3 ML SYRINGE SUB-Q (13:36)
[2023-02-11 16:50] LABS: Glucose Point of Care 252 mg/dl (65-105)
[2023-02-11 20:14] LABS: Glucose Point of Care 126 mg/dl (65-105)
[2023-02-11] MEDS: INSULIN GLARGINE (*BKC) 100 UNITS/ML 25 UNITS SUB-Q (21:00)
[2023-02-11] MEDS: MICONAZOLE NITRATE 2% VAGINAL CREAM 45 GM TUBE 1 APPFUL VAGINAL (21:00)
[2023-02-11] MEDS: ROSUVASTATIN 10 MG TABLET 20 MG PO (21:48)
[2023-02-11] MEDS: SACUBITRIL/VALSARTAN 24-26 MG TABLET 1 TAB PO (21:49)
[2023-02-12] VITALS (22 sets, daily range): BP systolic 110–135; BP diastolic 45–93; PULSE 59–76; RESP 14–20; TEMP 36.2–36.4; O2SAT 94–100
[2023-02-12] MEDS: ALBUTEROL SULFATE NEB 2.5 MG/3 ML INH INHALATION ×4 (02:13→20:59)
[2023-02-12 05:15] LABS: Basophils Absolute Auto 0.1 K/mm3 (0.0-0.1); Basophils Percent Auto 0.8 % (0.2-1.2); Eosinophils Absolute Auto 0.2 K/mm3 (0-0.3); Eosinophils Percent Auto 2.5 % (0-4.4); Hematocrit 36.1 % (37.0-47.0); Hemoglobin 11.3 g/dL (12.0-15.0); Immature Granulocyte Absolute 0.03 K/mm3 (0.00-0.031); Immature Granulocyte Percent A 0.4 % (0-0.5); Lymphocytes Absolute Auto 0.93 K/mm3 (0.9-3.2); Lymphocytes Percent Auto 11.1 % (18.3-44.2); Mean Corpuscular HGB Conc 31.3 g/dl (32-36); Mean Corpuscular Hemoglobin 28.4 pg (26-34); Mean Corpuscular Volume 90.7 fl (80-100); Monocytes Absolute Auto 0.9 K/mm3 (0.1-0.6); Monocytes Percent Auto 10.4 % (2.6-8.5); Neutrophils Absolute Auto 6.2 K/mm3 (1.3-6.7); Neutrophils Percent Auto 74.8 % (45.5-73.1); Platelet Count Result 275 k/mm3 (150-375); Red Blood Count 3.98 M/mm3 (4.2-5.4); Red Cell Distribution Width 14.5 % (11.5-14.5); White Blood Count 8.4 K/mm3 (4.5-10.0)
[2023-02-12 05:29] LABS: Alanine Aminotransferase 13 U/L (6-35); Albumin Level 3.5 g/dL (3.5-5.1); Alkaline Phosphatase 63 U/L (38-126); Anion Gap 9 mmol/L (8-16); Aspartate Amino Transferase 25 U/L (14-36); Bilirubin,Total 0.9 mg/dL (0.2-1.3); Blood Urea Nitrogen 21 mg/dL (7-17); Carbon Dioxide 33 mmol/L (22-30); Chloride 91 mmol/L (98-107); Estimated CRCL calculation 23 ml/min; Estimated Glomerular Filt Rate 27; Glucose 176 mg/dL (65-110); Magnesium 1.9 mg/dL (1.6-2.3); Sodium 133 mmol/L (137-145)
[2023-02-12 07:45] LABS: Glucose Point of Care 190 mg/dl (65-105)
--- NOTE | 2023-02-12 08:16 | PM.IMPN ---
Progress Note: A&P Assessment and Plan (1) Combined systolic and diastolic congestive heart failure: Qualifiers: Heart failure chronicity: chronic Qualified Code(s): I50.42 - Chronic combined systolic (congestive) and diastolic (congestive) heart failure Code(s): I50.40 - Unspecified combined systolic (congestive) and diastolic (congestive) heart failure Status: Chronic Assessment and Plan: Follows with cardiology at [facility]. BNP 9270 on admission CTA shows Ksrlk-my-[id number] bilateral pleural effusions, right greater than left, with bilateral partial lower lobe atelectasis, and minimal interstitial pulmonary edema. Hypoxia 75% on room air in the field. Improved with 4 L NC to > 92%. Not normally on oxygen. Daily weights Strict I&O's Fluid restriction 1.5 L daily ECHO from 01/2022 with EF with 35-40%. Repeat ECHO ordered and report as followed, Summary ? 1. Moderate left ventricular enlargement with borderline hypertrophy. Moderate global hypokinesis with akinesis of the distal inferioseptal wall, septum, and apex. ? Severe hypokinesis of the distal anterior wall and distal lateral wall.? Thinning of the distal septum and apex.? EF 25-30%.? Grade 2 diastolic dysfunction. ? 2. There is moderate to severe mitral valve regurgitation. ? 3. There is mild tricuspid valve regurgitation. ? 4. Moderate pulmonary hypertension, estimated pulmonary arterial systolic pressure is 51 mmHg. ? 5. Left atrial chamber dimension is moderately enlarged. ? 6. Dilated inferior vena cava with >50% collapse upon inspiration consistent with elevated right atrial pressure, 15 mmHg. ? 7. There is trivial to small pericardial effusion. ? 8. Rhythm indeterminate. ? 9. Technically difficult study, definity echo contrast used. 02/09: SOB has improved with IV lasix and oxygen. Lung sounds are diminished with improving fine crackles to bilateral bases. 02/10: On room air and satting 97%. Patient had some desaturations at night with sleep. Nursing has concerns for SARAH, will order apnea link. Continue with IV lasix 40 mg BID per cardiology. 02/11: Appreciate cardiology recs - will continue with diuresis and medical management. Avoid cath d/t CKD if possible. 02/12: Stable. Blood pressures have tolerated new medications so far. (2) Acute respiratory failure with hypoxia: Code(s): J96.01 - Acute respiratory failure with hypoxia Status: Acute Assessment and Plan: SOB with crackles and non-productive sputum likely CHF exacerbation currently on oxygen at 3 L NC. Wean as tolerated to keep oxygen > 92%. ABG on arrival was ph 7.37/pCO2 50.6/pO2 69/HCO3 28.7 COPD and SARAH hx. CPAP at HS with autotitration. Continuous pulse ox Apnea link tonight to assess for nocturnal oxygen needs. 02/10: On room air, sating 97%. 02/11: Room air with stable O2 sats. 02/12: Resolved. Stopping diuresis. (3) NSTEMI (non-ST elevated myocardial infarction): Code(s): I21.4 - Non-ST elevation (NSTEMI) myocardial infarction Status: Acute Assessment and Plan: EKG on admission reports sinus rhythm with left axis deviation, possible left atrial enlargement, right bundle branch block, with non-specific ST wave changes. Patient denies chest pain Trending troponin given elevation on admission. 0.158-->1.220-->4.200 On telemetry with prn EKG for acute chest pain NSTEMI-started on heparin gtt per protocol Already on ASA 81 mg daily Cardiology has been consulted and recommendations are appreciated. 02/10: Troponin have peaked at 4.200 and starting to downtrend this morning. Now 3.730. Cards would like to avoid cardiac cath at this time due to her CKD. Discontinue heparin gtt in the morning. Repeat EKG for ischemic changes. Should anginal-type discomfort occur or another acute dyspnea episode will reconsider cardiac cath. Follow up with Dr Bradshaw, medical editor as an outpatient. Changing lis
[2023-02-12] MEDS: FERROUS SULFATE 325 MG TABLET DR PO ×2 (09:32→18:02)
[2023-02-12] MEDS: CYANOCOBALAMIN 500 MCG TABLET PO (09:32)
[2023-02-12] MEDS: POTASSIUM CHLORIDE 20 MEQ ER TABLET 40 MEQ PO (09:32)
[2023-02-12] MEDS: SPIRONOLACTONE 25 MG TABLET PO (09:32)
[2023-02-12] MEDS: METOPROLOL TARTRATE 25 MG TABLET PO ×2 (09:32→22:00)
[2023-02-12] MEDS: ASCORBIC ACID 250 MG TABLET PO (09:33)
[2023-02-12] MEDS: ENOXAPARIN 30 MG/0.3 ML SYRINGE SUB-Q (09:33)
[2023-02-12] MEDS: NITROFURANTOIN MONOHYD MACROCR 100 MG CAP PO ×2 (09:33→22:00)
[2023-02-12] MEDS: CITALOPRAM HYDROBROMIDE 20 MG TABLET BY MOUTH (09:33)
[2023-02-12] MEDS: MULTIVITAMINS THERAPEUTIC TAB (*BKC) 1 TABLET PO (09:33)
[2023-02-12] MEDS: PANTOPRAZOLE 40 MG TABLET PO ×2 (09:33→22:00)
[2023-02-12] MEDS: EUCERIN CREAM 120 GM JAR 1 APPLIC TOPICAL (09:33)
[2023-02-12] MEDS: SACUBITRIL/VALSARTAN 24-26 MG TABLET 1 TAB PO ×2 (09:33→22:00)
[2023-02-12] MEDS: ASPIRIN 81 MG ENTERIC TABLET PO (09:33)
[2023-02-12] MEDS: SUCRALFATE 1 GM TABLET PO ×3 (09:33→22:00)
[2023-02-12 11:55] LABS: Glucose Point of Care 356 mg/dl (65-105)
[2023-02-12] MEDS: INSULIN ASPART (*BKC) 100 UNITS/ML SUB-Q ×5 (12:11→22:00)
--- NOTE | 2023-02-12 13:16 | PM.PNCARD ---
Progress Note: A&P Assessment and Plan (1) Acute combined systolic and diastolic heart failure: Code(s): I50.41 - Acute combined systolic (congestive) and diastolic (congestive) heart failure Status: Acute Assessment and Plan: Patient presents with acute systolic and diastolic heart failure. Has underlying ischemic cardiomyopathy and known CAD. Responded well to diuretic therapy; lungs clear, off O2, no edema. -- IV furosemide discontinued yesterday --DC potassium --Resume PO when renal fxn improves --daily BMP --Increase activity and cont Ph Tx. --Home soon --DC Tele? (2) Elevated troponin: Code(s): R79.89 - Other specified abnormal findings of blood chemistry Status: Acute Assessment and Plan: Patient has elevated troponins with a rise and fall. Unclear if this is nonischemic myocardial injury due to patient's hypoxia, or and non-STEMI. The patient has not had any anginal-type discomfort and she does not have any ischemic EKG changes that would be more consistent with a non-STEMI. She does have small effusions suggesting this is more longstanding process. Trying to avoid cardiac catheterization because of her chronic kidney disease. --Was on heparin for 2 days --if the patient has anginal-type discomfort or another acute dyspnea, reconsider cardiac catheterization --follow-up with usual warehouse analyst, , soon after discharge. (3) Ischemic cardiomyopathy: Code(s): I25.5 - Ischemic cardiomyopathy Status: Acute Assessment and Plan: Ischemic cardiomyopathy with a fall in ejection fraction recently. Currently on fairly minimal therapy. --changed lisinopril to Entresto --added metoprolol, spironolactone; BP tolerating this --Cont ASA and statin --follow-up with usual warehouse analyst soon after discharge. (4) CKD (chronic kidney disease) stage 3, GFR 30-59 ml/min: Code(s): N18.30 - Chronic kidney disease, stage 3 unspecified Status: Acute Assessment and Plan: CKD a little worse after diuresis --Daily BMP (5) Mitral regurgitation: Code(s): I34.0 - Nonrheumatic mitral (valve) insufficiency Status: Acute Assessment and Plan: Moderate to severe MR on this Echo; murmur not terribly impressive. Follow clinically and w/ serial echos. (6) History of implantable cardiac defibrillator (ICD): Code(s): Z95.810 - Presence of automatic (implantable) cardiac defibrillator Status: Acute Assessment and Plan: Followed by [facility] Subjective Date/time seen: 02/12/23 13:16 Interval history: Follow-up for acute on chronic systolic failure, CAD, elevated troponins up to 4.2. EF has declined to 25-30% by our echo. Moderate to severe mitral regurgitation. ?She is followed by [facility] (Dr. Mehta) for her CHF and CAD.? H/O HTN.? She had a Biotronik ICD with a generator change in November 2022.? Cardiac catheterization in 2010 showed an occluded Left anterior descending, 60% stenosis of the circumflex and some diffuse disease of the right coronary artery and a stress test in 2019 showed a large anterior apical defect with left ventricular dysfunction, and she has been treated medically. 02/11/2023: Improving, continue IV Lasix Date of service 02/12/2023: Patient complains of some leg weakness but breathing is back to baseline. Diuresed a small amount yesterday. Creatinine up to 1.8. Review of Systems Review of Systems: No chest discomfort. Chronic STOVALL but at baseline. No GI problems. Legs are weak. Some dizziness when she 1st gets up. Exam Const: General: cooperative, healthy appearing and comfortable; No confusion Orientation/consciousness: oriented to person, patient oriented x3 and No confusion HENMT: Mouth: Yes moist mucous membranes Eyes: General: appearance normal, both eyes and all related structures Neck: Neck: supple Resp: Effort & Inspec
[2023-02-12 16:05] LABS: Glucose Point of Care 222 mg/dl (65-105)
[2023-02-12 19:59] LABS: Glucose Point of Care 318 mg/dl (65-105)
--- NOTE | 2023-02-12 21:07 | PCRCNOTE ---
pt continues to refuse use of hospital unit; pt stated that she has not used home cpap unit in a very long time
[2023-02-12] MEDS: INSULIN GLARGINE (*BKC) 100 UNITS/ML 25 UNITS SUB-Q (22:00)
[2023-02-12] MEDS: ROSUVASTATIN 10 MG TABLET 20 MG PO (22:00)
[2023-02-13] VITALS (10 sets, daily range): BP systolic 119–146; BP diastolic 52–59; PULSE 58–70; RESP 12–18; TEMP 36.3–36.6; O2SAT 94–100
[2023-02-13] MEDS: ALBUTEROL SULFATE NEB 2.5 MG/3 ML INH INHALATION ×3 (01:20→13:48)
[2023-02-13 05:42] LABS: Basophils Absolute Auto 0.1 K/mm3 (0.0-0.1); Basophils Percent Auto 0.9 % (0.2-1.2); Eosinophils Absolute Auto 0.2 K/mm3 (0-0.3); Eosinophils Percent Auto 2.6 % (0-4.4); Hematocrit 39.9 % (37.0-47.0); Immature Granulocyte Absolute 0.05 K/mm3 (0.00-0.031); Immature Granulocyte Percent A 0.6 % (0-0.5); Lymphocytes Absolute Auto 0.97 K/mm3 (0.9-3.2); Mean Corpuscular HGB Conc 30.1 g/dl (32-36); Mean Corpuscular Volume 96.4 fl (80-100); Mean Platelet Volume 10.1 fl (7.4-10.4); Monocytes Absolute Auto 0.8 K/mm3 (0.1-0.6); Neutrophils Percent Auto 73.9 % (45.5-73.1); Platelet Count Result 296 k/mm3 (150-375); Red Blood Count 4.14 M/mm3 (4.2-5.4); Red Cell Distribution Width 14.6 % (11.5-14.5); White Blood Count 8.1 K/mm3 (4.5-10.0)
[2023-02-13 05:55] LABS: Alanine Aminotransferase 12 U/L (6-35); Albumin Level 3.6 g/dL (3.5-5.1); Alkaline Phosphatase 63 U/L (38-126); Anion Gap 7 mmol/L (8-16); Aspartate Amino Transferase 23 U/L (14-36); Blood Urea Nitrogen 20 mg/dL (7-17); Calcium 9.1 mg/dL (8.4-10.2); Carbon Dioxide 29 mmol/L (22-30); Chloride 95 mmol/L (98-107); Estimated CRCL calculation 27 ml/min; Estimated Glomerular Filt Rate 33; Glucose 174 mg/dL (65-110); Potassium 4.3 mmol/L (3.4-5.0); Sodium 131 mmol/L (137-145)
[2023-02-13 08:08] LABS: Glucose Point of Care 225 mg/dl (65-105)
--- NOTE | 2023-02-13 08:29 | P.DS_ITS ---
DS: Admitting Diagnosis Discharge Date 02/13 Admitting Diagnosis SOB DS: Discharge Diagnosis Discharge Diagnosis (1) Combined systolic and diastolic congestive heart failure: Qualifiers: Heart failure chronicity: chronic Qualified Code(s): I50.42 - Chronic combined systolic (congestive) and diastolic (congestive) heart failure Code(s): I50.40 - Unspecified combined systolic (congestive) and diastolic (congestive) heart failure Status: Chronic Assessment and Plan: Follows with cardiology at [facility]. * BNP 9270 on admission * CTA shows [id number] bilateral pleural effusions, right greater than left, with bilateral partial lower lobe atelectasis, and minimal interstitial pulmonary edema. * Hypoxia 75% on room air in the field. Improved with 4 L NC to > 92%. Not normally on oxygen. * Daily weights * Strict I&O's * Fluid restriction 1.5 L daily * ECHO from 01/2022 with EF with 35-40%. Repeat ECHO ordered and report as followed, Summary ? 1. Moderate left ventricular enlargement with borderline hypertrophy. Moderate global hypokinesis with akinesis of the distal inferioseptal wall, septum, and apex. ? Severe hypokinesis of the distal anterior wall and distal lateral wall.? Thinning of the distal septum and apex.? EF 25-30%.? Grade 2 diastolic dysfunction. ? 2. There is moderate to severe mitral valve regurgitation. ? 3. There is mild tricuspid valve regurgitation. ? 4. Moderate pulmonary hypertension, estimated pulmonary arterial systolic pressure is 51 mmHg. ? 5. Left atrial chamber dimension is moderately enlarged. ? 6. Dilated inferior vena cava with >50% collapse upon inspiration consistent with elevated right atrial pressure, 15 mmHg. ? 7. There is trivial to small pericardial effusion. ? 8. Rhythm indeterminate. ? 9. Technically difficult study, definity echo contrast used. 02/09: SOB has improved with IV lasix and oxygen. Lung sounds are diminished with improving fine crackles to bilateral bases. 02/10: On room air and satting 97%. Patient had some desaturations at night with sleep. Nursing has concerns for SARAH, will order apnea link. Continue with IV lasix 40 mg BID per cardiology. 02/11: Appreciate cardiology recs - will continue with diuresis and medical management. Avoid cath d/t CKD if possible. 02/12: Stable. Blood pressures have tolerated new medications so far. (2) Acute respiratory failure with hypoxia: Code(s): J96.01 - Acute respiratory failure with hypoxia Status: Acute Assessment and Plan: SOB with crackles and non-productive sputum likely CHF exacerbation * currently on oxygen at 3 L NC. Wean as tolerated to keep oxygen > 92%. * ABG on arrival was ph 7.37/pCO2 50.6/pO2 69/HCO3 28.7 * COPD and SARAH hx. * CPAP at HS with autotitration. * Continuous pulse ox * Apnea link tonight to assess for nocturnal oxygen needs. 02/10: On room air, sating 97%. 02/11: Room air with stable O2 sats. 02/12: Resolved. Stopping diuresis. (3) NSTEMI (non-ST elevated myocardial infarction): Code(s): I21.4 - Non-ST elevation (NSTEMI) myocardial infarction Status: Acute Assessment and Plan: EKG on admission reports sinus rhythm with left axis deviation, possible left atrial enlargement, right bundle branch block, with non-specific ST wave changes. * Patient denies chest pain * Trending troponin given elevation on admission. 0.158-->1.220-->4.200 * On telemetry with prn EKG for acute chest pain * NSTEMI-started on heparin gtt per protocol * Already on ASA 81 mg daily * Cardiology has bee
[2023-02-13] MEDS: INSULIN ASPART (*BKC) 100 UNITS/ML SUB-Q ×4 (08:59→13:25)
[2023-02-13] MEDS: SUCRALFATE 1 GM TABLET PO ×2 (09:00→13:24)
[2023-02-13] MEDS: PANTOPRAZOLE 40 MG TABLET PO (09:00)
[2023-02-13] MEDS: METOPROLOL TARTRATE 25 MG TABLET PO (09:00)
[2023-02-13] MEDS: ASPIRIN 81 MG ENTERIC TABLET PO (09:00)
[2023-02-13] MEDS: ASCORBIC ACID 250 MG TABLET PO (09:00)
[2023-02-13] MEDS: NITROFURANTOIN MONOHYD MACROCR 100 MG CAP PO (09:00)
[2023-02-13] MEDS: SACUBITRIL/VALSARTAN 24-26 MG TABLET 1 TAB PO (09:00)
[2023-02-13] MEDS: CITALOPRAM HYDROBROMIDE 20 MG TABLET BY MOUTH (09:00)
[2023-02-13] MEDS: CYANOCOBALAMIN 500 MCG TABLET PO (09:00)
[2023-02-13] MEDS: FERROUS SULFATE 325 MG TABLET DR PO (09:00)
[2023-02-13] MEDS: SPIRONOLACTONE 25 MG TABLET PO (09:00)
[2023-02-13] MEDS: MULTIVITAMINS THERAPEUTIC TAB (*BKC) 1 TABLET PO (09:00)
[2023-02-13] MEDS: ENOXAPARIN 30 MG/0.3 ML SYRINGE SUB-Q (09:01)
[2023-02-13] MEDS: EUCERIN CREAM 120 GM JAR 1 APPLIC TOPICAL (09:16)
--- NOTE | 2023-02-13 11:08 | PM.PNCARD ---
Progress Note: A&P Assessment and Plan (1) Acute combined systolic and diastolic heart failure: Code(s): I50.41 - Acute combined systolic (congestive) and diastolic (congestive) heart failure Status: Acute Assessment and Plan: Patient presents with acute systolic and diastolic heart failure. Has underlying ischemic cardiomyopathy and known CAD. Responded well to diuretic therapy; lungs clear, off O2, no edema. --Resume PO furosemide 40 mg a day since renal fxn improved --physical therapy recommends SNF, and patient will return to [facility] --okay for discharge today --reviewed medication changes with the patient --encouraged her to follow-up with her usual hospice community liaison, Dr. Bradshaw very soon to prevent relapse. She thinks she has an appointment with him this week. (2) Elevated troponin: Code(s): R79.89 - Other specified abnormal findings of blood chemistry Status: Acute Assessment and Plan: Patient had elevated troponins with a rise and fall. Unclear if this is nonischemic myocardial injury due to patient's hypoxia, or and non-STEMI. The patient has not had any anginal-type discomfort and she does not have any ischemic EKG changes that would be more consistent with a non-STEMI. She does have small effusions suggesting this is more longstanding process. Trying to avoid cardiac catheterization because of her chronic kidney disease. --Was on heparin for 2 days --if the patient has anginal-type discomfort or another acute dyspnea, reconsider cardiac catheterization --however patient seems to be doing well with no relapse, continue current therapy --follow-up with usual hospice community liaison, , soon after discharge. (3) Ischemic cardiomyopathy: Code(s): I25.5 - Ischemic cardiomyopathy Status: Acute Assessment and Plan: Ischemic cardiomyopathy with a fall in ejection fraction recently. Currently on fairly minimal therapy. --changed lisinopril to Entresto --added metoprolol, spironolactone; BP tolerating this --Cont ASA and statin --tolerating these changes. --follow-up with usual hospice community liaison soon after discharge. (4) CKD (chronic kidney disease) stage 3, GFR 30-59 ml/min: Code(s): N18.30 - Chronic kidney disease, stage 3 unspecified Status: Acute Assessment and Plan: CKD a little worse after diuresis, but is improving. (5) Mitral regurgitation: Code(s): I34.0 - Nonrheumatic mitral (valve) insufficiency Status: Acute Assessment and Plan: Moderate to severe MR on this Echo; murmur not terribly impressive. Follow clinically and w/ serial echos. (6) History of implantable cardiac defibrillator (ICD): Code(s): Z95.810 - Presence of automatic (implantable) cardiac defibrillator Status: Acute Assessment and Plan: Followed by [facility] Subjective Date/time seen: 02/13/23 11:08 Interval history: Follow-up for acute on chronic systolic failure, CAD, elevated troponins up to 4.2. EF has declined to 25-30% by our echo. Moderate to severe mitral regurgitation. ?She is followed by [facility] (Dr. Mehta) for her CHF and CAD.? H/O HTN.? She had a Biotronik ICD with a generator change in November 2022.? Cardiac catheterization in 2010 showed an occluded Left anterior descending, 60% stenosis of the circumflex and some diffuse disease of the right coronary artery and a stress test in 2019 showed a large anterior apical defect with left ventricular dysfunction, and she has been treated medically. 02/11/2023: Improving, continue IV Lasix Date of service 02/12/2023: Patient complains of some leg weakness but breathing is back to baseline. Diuresed a small amount yesterday. Creatinine up to 1.8. Date of service 02/13/2023: Patient out of bed yesterday, legs are weak but no shortness of breath with activity. BP 119-135/50 5-90. HR 60's. Creatinine down to 1.5. Review of Sys
[2023-02-13 11:42] LABS: Glucose Point of Care 317 mg/dl (65-105)
== END 2023-02-13 15:26 | DRG 280 ==
LOC: ANHED 02-09 03:58 → ANHIMU 02-09 06:06
PROVIDERS: Internal Medicine; Physician Assistant; Admitting Provider Internal Medicine; Emergency Provider Emergency Medicine; PCP Nurse Practitioner Family; Visit Provider Nurse Practitioner Acute Care
DX: I21.4 Non-ST elevation (NSTEMI) myocardial infarction (principal); I50.43 Acute on chronic combined systolic (congestive) and diastolic (congestive) heart failure; J96.01 Acute respiratory failure with hypoxia; I81 Portal vein thrombosis; I13.0 Hypertensive heart and chronic kidney disease with heart failure and stage 1 through stage 4 chronic kidney disease, or unspecified chronic kidney disease; E87.1 Hypo-osmolality and hyponatremia; I25.5 Ischemic cardiomyopathy; I25.10 Atherosclerotic heart disease of native coronary artery without angina pectoris; I34.0 Nonrheumatic mitral (valve) insufficiency; N18.30 Chronic kidney disease, stage 3 unspecified; E11.22 Type 2 diabetes mellitus with diabetic chronic kidney disease; E11.42 Type 2 diabetes mellitus with diabetic polyneuropathy; E11.65 Type 2 diabetes mellitus with hyperglycemia; E11.51 Type 2 diabetes mellitus with diabetic peripheral angiopathy without gangrene; E78.5 Hyperlipidemia, unspecified; E53.8 Deficiency of other specified B group vitamins; E55.9 Vitamin D deficiency, unspecified; K75.81 Nonalcoholic steatohepatitis (NASH); K21.00 Gastro-esophageal reflux disease with esophagitis, without bleeding; K27.9 Peptic ulcer, site unspecified, unspecified as acute or chronic, without hemorrhage or perforation; K59.09 Other constipation; Z20.822 Contact with and (suspected) exposure to COVID-19; M10.9 Gout, unspecified; M19.90 Unspecified osteoarthritis, unspecified site; M54.50 Low back pain, unspecified; G89.29 Other chronic pain; G47.33 Obstructive sleep apnea (adult) (pediatric); H81.10 Benign paroxysmal vertigo, unspecified ear; F41.9 Anxiety disorder, unspecified; J44.9 Chronic obstructive pulmonary disease, unspecified; F32.A Depression, unspecified; I25.2 Old myocardial infarction; Z98.84 Bariatric surgery status; Z95.810 Presence of automatic (implantable) cardiac defibrillator; Z87.891 Personal history of nicotine dependence
CPT/HCPCS: 36415; 36600; 71045; 71275; 80048; 80053; 80061; 81001; 82375; 82805; 82948; 83036; 83050; 83735; 83880; 84145; 84484; 85025; 85380; 85610; 85730; 87086; 87088; 87636; 93005; 94640; 94762; 96374; 97161; 97166; 99285; A9270; C8929; J1644; J1650; J1815; J1940; Q9957; Q9967

== ENCOUNTER 2023-02-21 16:43 | Emergency (ER) | payer MEDICARE, BC, SELFPAY ==
[2023-02-21] VITALS (7 sets, daily range): BP systolic 110–135; BP diastolic 42–71; PULSE 67–75; RESP 16–22; TEMP 36.7; O2SAT 96–99
--- NOTE | ~2023-02-21 | CT_ITS ---
EXAMINATION: CT abdomen pelvis wo con DATE: 02/21/2023 20:36 INDICATION: Abdominal pain TECHNIQUE: Computed tomography (CT) of the abdomen and pelvis was performed without intravenous contr ast. Automated exposure control and iterative reconstruction technique were employed. The dose-length product was 749.75 mGy-cm. COMPARISON: None FINDINGS: Mild bronchiectatic change at the bilateral lung bases along with minimal peripheral atelectasis/scar ring in the bilateral lower lobes. Heart size is normal. Partially visualized dual-lead cardiac pacem oscar/AICD with lead tips at the right atrium and in the right ventricle. Stenting along the right cor onary artery. Unchanged small pericardial effusion. No pleural effusion. Postoperative changes of vicky or gastric bypass procedure an ventral hernia mesh repair. Multiple gallstones in the dependent aspec t of the normal appearing gallbladder. 1.8 cm cyst in the right hepatic lobe. Spleen, pancreas and bi lateral adrenal glands are normal. There is moderate bilateral hydroureteronephrosis extending to the bladder. There is wall thickening and inflammatory stranding surrounding the bladder consistent with cystitis. The stranding extends cephalad along both ureters with urothelial thickening and some stra nding at the bilateral renal pelvises sees, right greater than left suggestive of associated ascendin g urinary tract infections. Bowels are unremarkable aside from the gastric bypass procedure with no o bstruction. The uterus is not identified and has likely been surgically resected. Minimal either phys iologic or reactive free fluid in the pelvis. No abscess or free intraperineal gas. No pathologically enlarged abdominal or pelvic lymphadenopathy. There is anterior fusion at L5-S1 with moderate spondy losis in the more cephalad lumbar and lower thoracic spine. Moderate bilateral sacroiliac osteoarthri tis. IMPRESSION: 1. Moderate bilateral hydroureteronephrosis with prominent inflammatory changes at the bladder and al david the ureters and renal collecting systems suggestive of either chronic outlet obstruction or neuro genic bladder with secondary ascending urinary tract infection. Correlate with urinalysis. 2. Cholelithiasis. Reviewed, dictated and finalized at location A. [employer] IMPRESSION: 1. Moderate bilateral hydroureteronephrosis with prominent inflammatory changes at the bladder and along the ureters and renal collecting systems suggestive o f either chronic outlet obstruction or neurogenic bladder with secondary ascend ing urinary tract infection. Correlate with urinalysis. 2. Cholelithiasis.
--- NOTE | 2023-02-21 17:30 | ECG_ITS ---
Measurements Intervals [place] Rate: 70 P: 40 [place]: 161 QRS: -31 QRSD: 146 T: 67 QT: 479 QTc: 517 Interpretive Statements SINUS RHYTHM LEFT AXIS DEVIATION RIGHT BUNDLE BRANCH BLOCK ANTEROSEPTAL INFARCT, AGE INDETERMINATE ABNORMAL ECG COMPARED TO ECG 02/10/2023 15:15:00 NO SIGNIFICANT CHANGES Electronically Signed On 02-21-2023 19:15:49 [employer]Y CLEANING SUPERVISOR by John Luong D.O.
[2023-02-21 18:03] LABS: Hematocrit 33.8 % (37.0-47.0); Hemoglobin 10.7 g/dL (12.0-15.0); Mean Corpuscular HGB Conc 31.7 g/dl (32-36); Mean Corpuscular Hemoglobin 28.2 pg (26-34); Mean Corpuscular Volume 89.2 fl (80-100); Mean Platelet Volume 9.5 fl (7.4-10.4); Platelet Count Result 274 k/mm3 (150-375); Red Blood Count 3.79 M/mm3 (4.2-5.4); Red Cell Distribution Width 14.4 % (11.5-14.5); White Blood Count 5.3 K/mm3 (4.5-10.0)
[2023-02-21 18:14] LABS: INR 1.1; Partial Thromboplastin Time 32.5 SECONDS (22.3-36.8); Prothrombin Time 15.2 Seconds (11.1-14.7)
[2023-02-21 18:16] LABS: Appearance Urine Turbid (Clear); Bacteria Urine 1+ /hpf; Bilirubin Urine Negative (Negative); Blood Urine 2+ (Negative); Color Urine Yellow (Yellow); Glucose Urine UA Negative (Negative); Ketones Urine Negative (Negative); Leukocyte Esterase Ur 3+ LEU/UL (Negative); Need Manual Microscopic Reviewed; Nitrate Urine Negative (Negative); Non Pathogenic Casts 0-2; Protein Urine 2+ mg/dL (Negative); Specific Grav Ur 1.009 (1.001-1.035); Squamous Epithelial Cell Urine Many /hpf (Few); Urobilinogen Urine 0.2 mg/dL (<2.0); WBC Urine >100 /hpf; pH Urine 6.5 (5.0-9.0)
[2023-02-21 18:18] LABS: Alanine Aminotransferase 13 U/L (6-35); Albumin Level 3.3 g/dL (3.5-5.1); Alkaline Phosphatase 55 U/L (38-126); Anion Gap 7 mmol/L (8-16); Aspartate Amino Transferase 24 U/L (14-36); Bilirubin,Total 0.7 mg/dL (0.2-1.3); Blood Urea Nitrogen 24 mg/dL (7-17); Calcium 8.4 mg/dL (8.4-10.2); Carbon Dioxide 26 mmol/L (22-30); Chloride 95 mmol/L (98-107); Estimated CRCL calculation 23 ml/min; Estimated Glomerular Filt Rate 31; Glucose 110 mg/dL (65-110); Potassium 3.4 mmol/L (3.4-5.0); Sodium 128 mmol/L (137-145)
[2023-02-21 18:19] LABS: Add Urine Microscopic? YES
[2023-02-21 18:35] LABS: Band Neutrophils Percent 2 % (0-6); Eosinophils Absolute Manual 0.05 K/mm3 (0.02-0.5); Eosinophils Percent Manual 1 % (0-4); Lymphocytes Absolute Manual 0.47 K/mm3 (1.1-4.5); Lymphocytes Percent Manual 9 % (18-44); Monocytes Absolute Manual 0.84 K/mm3 (0.1-0.90); Monocytes Percent Manual 16 % (3-9); Neutrophils Absolute Manual 3.92 K/mm3 (1.7-7.2); Neutrophils Percent Manual 72 % (46-73); Platelet Estimate Adequate (Adequate); Schistocytes None Seen (NORMAL); Total Cells Counted 100
--- NOTE | 2023-02-21 19:21 | PC.NURSE ---
Assumed care of pt at this time. Pt A&Ox4, resting on stretcher.
[2023-02-21 19:54] LABS: Glucose Point of Care 142 mg/dl (65-105)
[2023-02-21] MEDS: ACETAMINOPHEN 500 MG TABLET 1000 MG PO (20:43)
[2023-02-21 20:47] LABS: Influenza A QL RT-PCR Negative (Negative); Influenza B QL RT-PCR Negative (Negative); RSV RNA, RT-PCR Negative (Negative); SARS-CoV-2 RNA PCR Positive (Negative)
--- NOTE | 2023-02-21 22:04 | PC.NURSE ---
Pt refused yoo catheter at this time. Pt educated on benefits of placement, verbalized understanding, but still refused. EDP Lizy notified.
[2023-02-21 22:14] LABS: Lactic Acid Reflex 0.7 mmol/L (0.7-2.0); Magnesium 1.8 mg/dL (1.6-2.3)
[2023-02-21 22:26] LABS: Troponin I 0.024 ng/mL (0.000-0.034)
--- NOTE | 2023-02-21 23:01 | ED.GENADULT ---
HPI - General Adult General Chief complaint: Altered Mental Status Stated complaint: AMS, weak/ covid+ Time Seen by Provider: 02/21/23 19:42 History of Present Illness HPI narrative: patient is 82-year-old female presents to emergency department with chief complaint of altered mental status and COVID-19. The patient is resident of a local nursing facility has history of diabetes and EMS was called after the patient was reportedly confused. Patient's blood sugar was in the 60s and she was given dextrose in the field upon arrival the emergency department patient is alert oriented x4 complaining she does feels generally unwell patient was recently diagnosed with COVID-19 and also has history of chronic hydronephrosis and has had frequent UTIs. Related Data Home Medications Medication Instructions Recorded Confirmed calcium carbonate 500 mg-vitamin 1 tablet PO DAILY 04/03/19 02/09/23 D3 10 mcg (400 unit) tablet (Calcium 500 + D) multivitamin 1 tablet PO DAILY 10/01/19 02/09/23 aspirin 81 mg tablet 81 mg PO DAILY 08/22/22 02/09/23 ondansetron 4 mg PO Q6H PRN Nausea 09/11/22 02/09/23 ferrous sulfate 325 mg (65 mg 324 mg PO BID 11/16/22 02/09/23 iron) tablet ascorbic acid (vitamin C) 500 mg 250 mg PO DAILY 02/09/23 02/09/23 tablet (Vitamin C) cyanocobalamin (vitamin B-12) 500 500 mcg PO DAILY 02/09/23 02/09/23 mcg tablet ergocalciferol (vitamin D2) 1,250 1,250 mcg PO WEEKLY 02/09/23 02/09/23 mcg (50,000 unit) capsule nitrofurantoin 100 mg PO Q12H 02/09/23 02/09/23 monohydrate/macrocrystals 100 mg capsule pantoprazole 40 mg tablet,delayed 40 mg PO BID 02/09/23 02/09/23 release polyethylene glycol 1 ea miscellaneous PRN PRN 02/09/23 02/09/23 Constipation sucralfate 1 gram tablet 1 g PO QID 02/09/23 02/09/23 Allergies Allergy/AdvReac Type Severity Reaction Status Date / Time No Known Allergies Allergy Unknown Verified 11/16/22 13:42 Review of Systems Review of Systems: A 10 system review of systems was completed on the patient and is negative except for what is stated in the HPI. Nursing and ancillary documentation was reviewed. [facility] Past Medical History Medical History Anxiety Arthritis B12 deficiency BPPV (benign paroxysmal positional vertigo) CAD (coronary artery disease) Chronic constipation Chronic hyponatremia Chronic lower back pain CKD (chronic kidney disease) stage 3, GFR 30-59 ml/min Closed fracture of right humerus (09/2019) Combined systolic and diastolic congestive heart failure Echocardiogram 01/2022: EF 35-40%, grade 1 diastolic dysfunction, technically difficult study COPD with asthma COVID-19 (~01/2022) Depression Diabetic peripheral neuropathy Eczema Encounter for servicing of pacemaker at end of battery life Frequent UTI Gallstone pancreatitis (02/04/22) Gastric ulcer Resulting in GI bleed 01/2022 Gout Hyperlipidemia Hypertension IDDM (insulin dependent diabetes mellitus) Insomnia Ischemic cardiomyopathy Mitral regurgitation CONTRERAS (nonalcoholic steatohepatitis) Noted on ultrasound in 2011 NSTEMI (non-ST elevated myocardial infarction) Obstructive sleep apnea Mostly noncompliant with CPAP use Osteoarthritis Peripheral artery disease Portal vein thrombosis (01/2022) Not treated due to active GI bleed of the time Reflux esophagitis Seasonal allergies Type 2 diabetes mellitus Historically uncontrolled hemoglobin A1c 9% on 08/21/2022 Vitamin D deficiency Surgical History Surgical History Gastric bypass status for obesity (~2001) History of appendectomy History of implantable cardiac defibrillator (ICD) History of Abigail-en-Y gastric bypass 2001 per review of EMR by hospitalist; Patient states performed at [place] History of total hysterectomy with bilateral salpingo-oophorectomy (BSO) For benign disease History of ventral herni
[2023-02-21] MEDS: AMPICILLIN SULB 3 GM/NS 100 ML 3 GM/100 ML VIAL IVPB (23:09)
[2023-02-21] MEDS: SODIUM CHLORIDE 0.9% IV 1,000 ML 999 ML IV CONT (23:09)
[2023-02-21 23:20] LABS: Procalcitonin 0.1 ng/mL
[2023-02-22 00:08] LABS: Glucose Point of Care 129 mg/dl (65-105)
[2023-02-22 01:25] VITALS: BP 108/41; PULSE 73; RESP 20; O2SAT 97
== END 2023-02-22 01:26 ==
PROVIDERS: Emergency Medicine; Emergency Provider Emergency Medicine; PCP Nurse Practitioner Family
DX: U07.1 COVID-19 (principal); N39.0 Urinary tract infection, site not specified; E11.22 Type 2 diabetes mellitus with diabetic chronic kidney disease; I13.0 Hypertensive heart and chronic kidney disease with heart failure and stage 1 through stage 4 chronic kidney disease, or unspecified chronic kidney disease; N18.30 Chronic kidney disease, stage 3 unspecified; I50.40 Unspecified combined systolic (congestive) and diastolic (congestive) heart failure; J45.909 Unspecified asthma, uncomplicated; E11.42 Type 2 diabetes mellitus with diabetic polyneuropathy; E11.51 Type 2 diabetes mellitus with diabetic peripheral angiopathy without gangrene; I73.9 Peripheral vascular disease, unspecified; E78.5 Hyperlipidemia, unspecified; E55.9 Vitamin D deficiency, unspecified; I25.5 Ischemic cardiomyopathy; I25.2 Old myocardial infarction; K75.81 Nonalcoholic steatohepatitis (NASH); G47.33 Obstructive sleep apnea (adult) (pediatric); M10.9 Gout, unspecified; M19.90 Unspecified osteoarthritis, unspecified site; Z98.84 Bariatric surgery status; Z95.810 Presence of automatic (implantable) cardiac defibrillator; Z95.5 Presence of coronary angioplasty implant and graft; Z87.440 Personal history of urinary (tract) infections; Z87.891 Personal history of nicotine dependence; Z86.16 Personal history of COVID-19; Z90.710 Acquired absence of both cervix and uterus; Z90.722 Acquired absence of ovaries, bilateral; Z90.79 Acquired absence of other genital organ(s); Z79.4 Long term (current) use of insulin; Z79.82 Long term (current) use of aspirin
CPT/HCPCS: 36415; 74176; 80053; 81001; 82948; 83605; 83735; 84145; 84484; 85025; 85610; 85730; 87086; 87637; 93005; 96365; 99284; A9270; J0295; J7030

== ENCOUNTER 2023-05-08 02:50 | Inpatient (IN) | payer MEDICARE, BC, SELFPAY ==
--- NOTE | ~2023-05-08 | XR_ITS ---
EXAMINATION: XR chest 1V portable DATE: 05/08/2023 03:19 INDICATION: Weakness. TECHNIQUE: A single frontal view of the chest was obtained. COMPARISON: Chest single view 02/09/2023, chest CT 02/09/2023 FINDINGS: There is mild atelectasis in left lower lung zone. No pleural effusion or pneumothorax. The heart size is normal. There is a left chest wall pacer with leads in the right atrium and right vent ricle. IMPRESSION: 1. Mild atelectasis in left lower lung zone. Reviewed, dictated and finalized at location A. [employer]
[2023-05-08 02:50] VITALS: BP 156/60; PULSE 92; RESP 16; TEMP 37.2; O2SAT 100
--- NOTE | 2023-05-08 02:55 | ECG_ITS ---
Measurements Intervals [place] Rate: 90 P: 32 DE: 159 QRS: -31 QRSD: 141 T: 97 QT: 395 QTc: 486 Interpretive Statements SINUS RHYTHM LEFT ANTERIOR FASCICULAR BLOCK RIGHT BUNDLE BRANCH BLOCK [120+ ms QRS DURATION, UPRIGHT V1, 40+ ms S IN I/aVL/V4/V5/V6] SEPTAL MYOCARDIAL INFARCTION , OF INDETERMINATE AGE [40+ ms Q WAVE IN V1/V2] ABNORMAL ECG COMPARED TO ECG 02/21/2023 18:26:06 NO SIGNIFICANT CHANGES Electronically Signed On 05-08-2023 8:22:16 STORAGE MANAGER by Jaden Skinner M.D.
--- NOTE | 2023-05-08 04:02 | PC.NURSE ---
Consulted physician about urine appearance. Due to patient immobility yoo catheter placed.
[2023-05-08] MEDS: SODIUM CHLORIDE 0.9% IV 1,000 ML 999 ML IV CONT (04:29)
[2023-05-08 04:34] LABS: Basophils Absolute Auto 0.1 K/mm3 (0.0-0.1); Basophils Percent Auto 0.4 % (0.2-1.2); Eosinophils Absolute Auto 0.1 K/mm3 (0-0.3); Eosinophils Percent Auto 0.5 % (0-4.4); Hematocrit 33.8 % (37.0-47.0); Hemoglobin 10.7 g/dL (12.0-15.0); Immature Granulocyte Absolute 0.06 K/mm3 (0.00-0.031); Immature Granulocyte Percent A 0.4 % (0-0.5); Lymphocytes Absolute Auto 0.74 K/mm3 (0.9-3.2); Lymphocytes Percent Auto 5.1 % (18.3-44.2); Mean Corpuscular HGB Conc 31.7 g/dl (32-36); Mean Corpuscular Hemoglobin 28.8 pg (26-34); Mean Corpuscular Volume 90.9 fl (80-100); Mean Platelet Volume 8.8 fl (7.4-10.4); Monocytes Absolute Auto 1.3 K/mm3 (0.1-0.6); Monocytes Percent Auto 8.6 % (2.6-8.5); Neutrophils Absolute Auto 12.5 K/mm3 (1.3-6.7); Platelet Count Result 307 k/mm3 (150-375); Red Blood Count 3.72 M/mm3 (4.2-5.4); Red Cell Distribution Width 14.3 % (11.5-14.5); White Blood Count 14.7 K/mm3 (4.5-10.0)
[2023-05-08 04:46] LABS: INR 1.1; Partial Thromboplastin Time 29.8 SECONDS (22.3-36.8); Prothrombin Time 14.5 Seconds (11.1-14.7)
[2023-05-08 04:51] LABS: Influenza A QL RT-PCR Negative (Negative); Influenza B QL RT-PCR Negative (Negative); RSV RNA, RT-PCR Negative (Negative); SARS-CoV-2 RNA PCR Positive (Negative)
[2023-05-08 04:53] LABS: Alanine Aminotransferase 13 U/L (6-35); Albumin Level 3.7 g/dL (3.5-5.1); Alkaline Phosphatase 93 U/L (38-126); Anion Gap 8 mmol/L (8-16); Aspartate Amino Transferase 22 U/L (14-36); Bilirubin,Total 0.6 mg/dL (0.2-1.3); Blood Urea Nitrogen 25 mg/dL (7-17); Carbon Dioxide 25 mmol/L (22-30); Chloride 95 mmol/L (98-107); Estimated CRCL calculation 28 ml/min; Estimated Glomerular Filt Rate 36; Glucose 262 mg/dL (65-110); Potassium 3.9 mmol/L (3.4-5.0); Sodium 128 mmol/L (137-145)
[2023-05-08 04:54] LABS: Lactic Acid Reflex 1.5 mmol/L (0.7-2.0); Magnesium 1.8 mg/dL (1.6-2.3)
[2023-05-08 04:59] LABS: Appearance Urine Turbid (Clear); Bacteria Urine 1+ /hpf; Bilirubin Urine Negative (Negative); Blood Urine 2+ (Negative); Color Urine Yellow (Yellow); Glucose Urine UA Negative (Negative); Ketones Urine Trace mg/dL (Negative); Leukocyte Esterase Ur 3+ LEU/UL (Negative); Need Manual Microscopic Reviewed; Nitrate Urine Negative (Negative); Non Pathogenic Casts 0-2; Protein Urine 3+ mg/dL (Negative); RBC Urine 51-100 /hpf (0-2); Squamous Epithelial Cell Urine Many /hpf (Few); Urobilinogen Urine 0.2 mg/dL (<2.0); WBC Clumps Urine Present /HPF; WBC Urine >100 /hpf; pH Urine 5.5 (5.0-9.0)
[2023-05-08 05:01] LABS: Add Urine Microscopic? YES
[2023-05-08 05:04] LABS: NT Pro B Type Natriuretic Pept 3840 pg/mL (19.9-100); Troponin I 0.023 ng/mL (0.000-0.034)
--- NOTE | 2023-05-08 05:07 | ED.GENADULT ---
HPI - General Adult General Chief complaint: Weakness Stated complaint: generalized weakness Time Seen by Provider: 05/08/23 02:51 History of Present Illness HPI narrative: This is an 82-year-old female with a history of recurrent UTIs presenting with weakness. Over last 2-3 days her son has notice her condition has gotten worse. The patient herself has no complaints and denies fevers, chills, chest pain, difficulty breathing, abdominal pain or urinary symptoms. Her son does not feel that he is capable of taking care of her in her current state. Related Data Home Medications Medication Instructions Recorded Confirmed calcium carbonate 500 mg-vitamin 1 tablet PO DAILY 04/03/19 04/28/23 D3 10 mcg (400 unit) tablet (Calcium 500 + D) multivitamin 1 tablet PO DAILY 10/01/19 04/28/23 aspirin 81 mg tablet 81 mg PO DAILY 08/22/22 04/28/23 ondansetron 4 mg PO Q6H PRN Nausea 09/11/22 04/28/23 cyanocobalamin (vitamin B-12) 500 500 mcg PO DAILY 02/09/23 04/28/23 mcg tablet ergocalciferol (vitamin D2) 1,250 1,250 mcg PO WEEKLY 02/09/23 04/28/23 mcg (50,000 unit) capsule polyethylene glycol 1 ea miscellaneous PRN PRN 02/09/23 04/28/23 Constipation Allergies Allergy/AdvReac Type Severity Reaction Status Date / Time No Known Allergies Allergy Unknown Verified 05/08/23 02:55 [facility] Past Medical History Medical History (Updated 05/08/23 @ 05:18 by Moe Doe MD) Anxiety Arthritis B12 deficiency BPPV (benign paroxysmal positional vertigo) CAD (coronary artery disease) Chronic constipation Chronic hyponatremia Chronic lower back pain CKD (chronic kidney disease) stage 3, GFR 30-59 ml/min Closed fracture of right humerus (09/2019) Combined systolic and diastolic congestive heart failure Echocardiogram 01/2022: EF 35-40%, grade 1 diastolic dysfunction, technically difficult study COPD with asthma COVID-19 (~01/2022) Diabetic peripheral neuropathy Eczema Encounter for servicing of pacemaker at end of battery life Frequent UTI Gallstone pancreatitis (02/04/22) Gastric ulcer Resulting in GI bleed 01/2022 Gout Hyperlipidemia Hypertension IDDM (insulin dependent diabetes mellitus) Insomnia Ischemic cardiomyopathy Mitral regurgitation CONTRERAS (nonalcoholic steatohepatitis) Noted on ultrasound in 2012 NSTEMI (non-ST elevated myocardial infarction) Obstructive sleep apnea Mostly noncompliant with CPAP use Osteoarthritis Peripheral artery disease Portal vein thrombosis (01/2022) Not treated due to active GI bleed of the time Reflux esophagitis Seasonal allergies Type 2 diabetes mellitus Historically uncontrolled hemoglobin A1c 9% on 08/21/2022 Vitamin D deficiency Surgical History Surgical History (Updated 04/28/23 @ 16:43 by Mary Anne Alfaro APRN) Gastric bypass status for obesity (~2001) History of appendectomy History of implantable cardiac defibrillator (ICD) History of Abigail-en-Y gastric bypass 2001 per review of EMR by hospitalist; Patient states performed at [place] History of total hysterectomy with bilateral salpingo-oophorectomy (BSO) For benign disease History of ventral hernia repair Post-op changes noted on CT Hx of heart artery stent ICD (implantable cardioverter-defibrillator) in place (~2011) Status post panniculectomy Family History Family History Father Heart disease Acute myocardial infarction Arthritis Patient's father is Diabetes mellitus Mother Heart disease Acute myocardial infarction Arthritis Hypertension Diabetes mellitus CHF (congestive heart failure) Obesity Sibling Heart disease Obesity Sibling Family history of malignant neoplasm Social History Social History Social History: Lidia Ortega lives at [facility] living. She is retired. She is a former smoker and believes she qu
[2023-05-08] MEDS: AMPICILLIN SULB 3 GM/NS 100 ML 3 GM/100 ML VIAL IVPB ×2 (05:51→17:19)
[2023-05-08 06:17] VITALS: BP 118/36; PULSE 68; RESP 16; TEMP 36.1; O2SAT 97
[2023-05-08 06:35] LABS: Glucose Point of Care 215 mg/dl (65-105)
[2023-05-08 06:46] VITALS: BMI 21.7
--- NOTE | 2023-05-08 06:52 | ADMGEN ---
This patient, Lidia Ortega, was admitted to [facility] Surg Room 324-02 at 0617. Patient/family oriented to hospital policies and general routines including ID bracelet, bed and alarms, visiting hours, pain management, procedures, bathroom and other care routines, personal items, smoking policy, room service/diet, and visiting hours. Information on how to activate the Rapid Response Team has been discussed. Patient/Family are encouraged to report perceived risks to care and to ask questions if they do not understand what they are told or what they should do.
[2023-05-08 08:06] LABS: Troponin I 0.027 ng/mL (0.000-0.034)
[2023-05-08 08:23] LABS: Glucose Point of Care 185 mg/dl (65-105)
--- NOTE | 2023-05-08 11:14 | PM.IMHP ---
H&P: HPI History of Present Illness Date/Time: 05/08/23 11:14 Chief Complaint: Weakness, UTI, COVID+ Narrative: 82 year old female with past medical history significant for Anxiety, CAD, Hyponatremia, Constipation, CKD Stg 3, CHF, COPD, Neuropathy, Pacemaker/Defibrillator, CABG, DM type 2, HTN, CONTRERAS, NSTEMI and SARAH presented to ED from home with concerns of weakness. Patient provides the following history. Patient states she lives at home and her son lives there with her. She stated that her son made her come to the hospital as she was too weak to walk. She typically uses a walker and power chair. she stated she feels okay, but remains weak. She denies any pain, chest pain, shortness of breath, cough, nausea, vomiting or diarrhea. She stated she is incontinent of urine and wears depends at home, but does not have any burning, pain or frequency she can recall. Patient pleasant and alert, she can recalls events within this visit. However, he stated that her son takes care of her medications and other things for her. In ED the physican noted her work up included and revealed urine indicative infection, yoo was placed. COVID +. White count 14.7. Hemoglobin 10.7 kidney function baseline.? Lactic 1.5, troponin 0.023, BNP 3840. She was started on ampicillin/sulbactam as previous microbiology reports showed pansensitive enterococcus. She was admitted to hospital for IV abx, PT/OT and COVID+. Review of Systems Review of Systems: All systems reviewed & are unremarkable except as noted in HPI and below PMFSH Past Medical History Medical History Anxiety Arthritis B12 deficiency BPPV (benign paroxysmal positional vertigo) CAD (coronary artery disease) Chronic constipation Chronic hyponatremia Chronic lower back pain CKD (chronic kidney disease) stage 3, GFR 30-59 ml/min Closed fracture of right humerus (09/2019) Combined systolic and diastolic congestive heart failure Echocardiogram 01/2022: EF 35-40%, grade 1 diastolic dysfunction, technically difficult study COPD with asthma COVID-19 (~01/2022) Diabetic peripheral neuropathy Eczema Encounter for servicing of pacemaker at end of battery life Frequent UTI Gallstone pancreatitis (02/04/22) Gastric ulcer Resulting in GI bleed 01/2022 Gout Hyperlipidemia Hypertension IDDM (insulin dependent diabetes mellitus) Insomnia Ischemic cardiomyopathy Mitral regurgitation CONTRERAS (nonalcoholic steatohepatitis) Noted on ultrasound in 2011 NSTEMI (non-ST elevated myocardial infarction) Obstructive sleep apnea Mostly noncompliant with CPAP use Osteoarthritis Peripheral artery disease Portal vein thrombosis (01/2022) Not treated due to active GI bleed of the time Reflux esophagitis Seasonal allergies Type 2 diabetes mellitus Historically uncontrolled hemoglobin A1c 9% on 08/21/2022 Vitamin D deficiency Surgical History Surgical History Gastric bypass status for obesity (~2001) History of appendectomy History of implantable cardiac defibrillator (ICD) History of Abigail-en-Y gastric bypass 2001 per review of EMR by hospitalist; Patient states performed at [place] History of total hysterectomy with bilateral salpingo-oophorectomy (BSO) For benign disease History of ventral hernia repair Post-op changes noted on CT Hx of heart artery stent ICD (implantable cardioverter-defibrillator) in place (~2011) Status post panniculectomy Family History Family History Father Heart disease Acute myocardial infarction Arthritis Patient's father is Diabetes mellitus Mother Heart disease Acute myocardial infarction Arthritis Hypertension Diabetes mellitus CHF (congestive heart failure) Obesity Sibling Heart disease Obesity Sibling Family history of malignant neoplasm Social History Social Hist
[2023-05-08 11:23] LABS: Glucose Point of Care 311 mg/dl (65-105)
[2023-05-08 12:43] LABS: Hemoglobin A1C 8.8 % (<5.7)
[2023-05-08] MEDS: ERGOCALCIFEROL 50,000 UNITS CAPSULE 50000 UNITS PO (12:45)
[2023-05-08] MEDS: INSULIN ASPART (*BKC) 100 UNITS/ML 10 UNITS SUB-Q (12:45)
[2023-05-08] MEDS: INSULIN ASPART (*BKC) 100 UNITS/ML SUB-Q (12:46)
[2023-05-08 14:00] VITALS: BP 127/42; PULSE 70; RESP 16; TEMP 36.4; O2SAT 100
--- NOTE | 2023-05-08 14:18 | PC.NURSE ---
On 05/08/23, the NATIONAL PARK T[employer] GUIDE,Agnes, provided care and completed [email or web address] documentation on this patient. I have reviewed the [employer] GUIDE's documentation and agree with the findings.
[2023-05-08 16:50] LABS: Glucose Point of Care 147 mg/dl (65-105)
[2023-05-08] MEDS: DOCUSATE SODIUM 100 MG CAPSULE PO (17:22)
[2023-05-08] MEDS: HYDROCORTISONE/PRAMOXINE 2.5% 30 GM CREAM 1 APPLIC RECTAL (19:55)
[2023-05-08 20:00] VITALS: PULSE 66; RESP 16; O2SAT 100
[2023-05-08] MEDS: HEPARIN SODIUM 5,000 UNITS/ML VIAL 5000 UNITS SUB-Q (20:04)
[2023-05-08 20:05] VITALS: PULSE 70
[2023-05-08] MEDS: METOPROLOL TARTRATE 25 MG TABLET PO (20:05)
[2023-05-08] MEDS: ROSUVASTATIN 20 MG TABLET PO (20:05)
[2023-05-08 21:20] LABS: Glucose Point of Care 121 mg/dl (65-105)
[2023-05-08] MEDS: INSULIN GLARGINE (*BKC) 100 UNITS/ML 25 UNITS SUB-Q (21:24)
[2023-05-08 22:00] VITALS: BP 134/56; PULSE 66; RESP 16; TEMP 36.6; O2SAT 100
[2023-05-09] MEDS: ALPRAZolam (*CRX) 0.25 MG TABLET PO (01:14)
[2023-05-09 06:00] VITALS: BP 128/59; PULSE 63; RESP 16; TEMP 36.7; O2SAT 100
[2023-05-09] MEDS: SUCRALFATE 1 GM TABLET PO (06:06)
[2023-05-09] MEDS: AMPICILLIN SULB 3 GM/NS 100 ML 3 GM/100 ML VIAL IVPB ×2 (06:06→11:53)
[2023-05-09 06:43] LABS: Hematocrit 31.6 % (37.0-47.0); Hemoglobin 9.9 g/dL (12.0-15.0); Mean Corpuscular HGB Conc 31.3 g/dl (32-36); Mean Corpuscular Hemoglobin 28.6 pg (26-34); Mean Corpuscular Volume 91.3 fl (80-100); Mean Platelet Volume 8.7 fl (7.4-10.4); Platelet Count Result 285 k/mm3 (150-375); Red Blood Count 3.46 M/mm3 (4.2-5.4); Red Cell Distribution Width 14.6 % (11.5-14.5); White Blood Count 9.6 K/mm3 (4.5-10.0)
[2023-05-09 06:48] LABS: Alanine Aminotransferase 9 U/L (6-35); Alkaline Phosphatase 71 U/L (38-126); Anion Gap 6 mmol/L (8-16); Aspartate Amino Transferase 19 U/L (14-36); Bilirubin,Total 0.6 mg/dL (0.2-1.3); Blood Urea Nitrogen 18 mg/dL (7-17); Calcium 8.6 mg/dL (8.4-10.2); Carbon Dioxide 23 mmol/L (22-30); Chloride 102 mmol/L (98-107); Estimated CRCL calculation 35 ml/min; Estimated Glomerular Filt Rate 48; Glucose 127 mg/dL (65-110); Potassium 3.3 mmol/L (3.4-5.0); Sodium 131 mmol/L (137-145)
[2023-05-09 06:57] LABS: NT Pro B Type Natriuretic Pept 5300 pg/mL (19.9-100)
[2023-05-09 07:59] LABS: Glucose Point of Care 121 mg/dl (65-105)
[2023-05-09 08:00] VITALS: O2SAT 100
[2023-05-09] MEDS: ASPIRIN 81 MG ENTERIC TABLET PO (08:45)
[2023-05-09] MEDS: CITALOPRAM HYDROBROMIDE 20 MG TABLET BY MOUTH (08:45)
[2023-05-09] MEDS: CYANOCOBALAMIN 500 MCG TABLET PO (08:45)
[2023-05-09 08:46] VITALS: PULSE 64
[2023-05-09] MEDS: SPIRONOLACTONE 25 MG TABLET PO (08:46)
[2023-05-09] MEDS: FUROSEMIDE 40 MG TABLET PO (08:46)
[2023-05-09] MEDS: MULTIVITAMINS THERAPEUTIC TAB (*BKC) 1 TABLET PO (08:46)
[2023-05-09] MEDS: lisinopriL 10 MG TABLET PO (08:46)
[2023-05-09] MEDS: METOPROLOL TARTRATE 25 MG TABLET PO (08:46)
[2023-05-09] MEDS: HEPARIN SODIUM 5,000 UNITS/ML VIAL 5000 UNITS SUB-Q ×2 (08:46→21:12)
[2023-05-09] MEDS: INSULIN ASPART (*BKC) 100 UNITS/ML 10 UNITS SUB-Q ×2 (08:49→11:55)
[2023-05-09 10:19] VITALS: BMI 21.7
--- NOTE | 2023-05-09 10:31 | PCOTNOTE ---
Attempted to see pt. for occupational therapy evaluation. Pt. declined to participate at this time, stating I'm too tired, I didn't sleep last night. Pt. educated on benefits of therapy and repeatedly declined. Nursing aware. Following.
[2023-05-09 11:37] LABS: Glucose Point of Care 145 mg/dl (65-105)
--- NOTE | 2023-05-09 12:12 | P.PNIM_ITS ---
Progress Note: A&P Assessment and Plan (1) Acute UTI: Code(s): N39.0 - Urinary tract infection, site not specified Status: Acute Assessment and Plan: * UA preformed in ED indicative of UTI * WBC 14.7 * ED started ampicillin/sulbactam * previous microbiology reports showed pansensitive enterococcus * Stafford inserted in ED- monitor output and address removal * Urine cultures ordered in ED - pending * Continue to monitor s/s * 05/09 WBC 9.6 * Urine culture negative * Will discontinue IV abx * Stafford in place and draining white cloudy- Will address removal after consult preformed * Continue to monitor (2) COVID: Code(s): U07.1 - COVID-19 Status: Acute Assessment and Plan: * COVID+ in ED 05/08 * Denies SOB, Chest pain, Cough * Pt also tested positive for COVID in 02/17 * Chest X- Ray- Rad impression notes- Mild atelectasis in left lower lung zone * Continue to monitor respiratory status * Consult pulmonology as needed * 05/09:Denies SOB, Chest pain, Cough. * Lungs clear to auscultation bilaterally (3) Weakness: Code(s): R53.1 - Weakness Status: Acute Assessment and Plan: * Generalized weakness * UA- indicative of UTI, possibly contributory to weakness * COVID+, possibly contributory to weakness * PT/ OT to evaluate and treat * VTE- heparin for decreased mobility * 05/09: Continues to admit weakness * PT/OT ordered- Patient refused today * CC may need to address placement after discharge as son noted in ED he can not care for her in this state (4) Pressure ulcer: Qualifiers: Pressure injury location: sacral region Pressure injury stage: stage 2 Qualified Code(s): L89.152 - Pressure ulcer of sacral region, stage 2 Code(s): L89.90 - Pressure ulcer of unspecified site, unspecified stage Status: Acute Assessment and Plan: * Sacral pressure ulcer present upon admission * Patient expresses some pain in this area * Wound consult placed, appreciate recommendations for care. 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 Continue current glucose control regimen * Hemoglobin A1C (05/08) 8.8 (6) CKD (chronic kidney disease): Qualifiers: Chronic kidney disease stage: unspecified stage Qualified Code(s): N18.9 - Chronic kidney disease, unspecified Code(s): N18.9 - Chronic kidney disease, unspecified Status: Acute Assessment and Plan: * CKD- Stage 3 - Baseline GFR 30-59 * Patient is incontinent of urine * BUN- 25, CR-1.40, GFR- 36 * Continue to monitor * 2: BUN- 18, CR- 1.10, GFR- 48. Shows improvement * Continue to monitor trends * encouraged appropriate hydration (7) Hypertension: Qualifiers: Hypertension type: essential hypertension Qualified Code(s): I10 - Essential (primary) hypertension Code(s): I10 - Essential (primary) hypertension Status: Chronic Assessment and Plan: * Hx of HTN
--- NOTE | 2023-05-09 12:12 | PM.IMPN ---
Progress Note: A&P Assessment and Plan (1) Acute UTI: Code(s): N39.0 - Urinary tract infection, site not specified Status: Acute Assessment and Plan: UA preformed in ED indicative of UTI WBC 14.7 ED started ampicillin/sulbactam previous microbiology reports showed pansensitive enterococcus Stafford inserted in ED- monitor output and address removal Urine cultures ordered in ED - pending Continue to monitor s/s 05/09 WBC 9.6 Urine culture negative Will discontinue IV abx Stafford in place and draining white cloudy- Will address removal after consult preformed Continue to monitor (2) COVID: Code(s): U07.1 - COVID-19 Status: Acute Assessment and Plan: COVID+ in ED 05/08 Denies SOB, Chest pain, Cough Pt also tested positive for COVID in 02/17 Chest X- Ray- Rad impression notes- Mild atelectasis in left lower lung zone Continue to monitor respiratory status Consult pulmonology as needed 05/09:Denies SOB, Chest pain, Cough. Lungs clear to auscultation bilaterally (3) Weakness: Code(s): R53.1 - Weakness Status: Acute Assessment and Plan: Generalized weakness UA- indicative of UTI, possibly contributory to weakness COVID+, possibly contributory to weakness PT/ OT to evaluate and treat VTE- heparin for decreased mobility 05/09: Continues to admit weakness PT/OT ordered- Patient refused today CC may need to address placement after discharge as son noted in ED he can not care for her in this state (4) Pressure ulcer: Qualifiers: Pressure injury location: sacral region Pressure injury stage: stage 2 Qualified Code(s): L89.152 - Pressure ulcer of sacral region, stage 2 Code(s): L89.90 - Pressure ulcer of unspecified site, unspecified stage Status: Acute Assessment and Plan: Sacral pressure ulcer present upon admission Patient expresses some pain in this area Wound consult placed, appreciate recommendations for care. 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 Continue current glucose control regimen Hemoglobin A1C (05/08) 8.8 (6) CKD (chronic kidney disease): Qualifiers: Chronic kidney disease stage: unspecified stage Qualified Code(s): N18.9 - Chronic kidney disease, unspecified Code(s): N18.9 - Chronic kidney disease, unspecified Status: Acute Assessment and Plan: CKD- Stage 3 - Baseline GFR 30-59 Patient is incontinent of urine BUN- 25, CR-1.40, GFR- 36 Continue to monitor 2: BUN- 18, CR- 1.10, GFR- 48. Shows improvement Continue to monitor trends encouraged appropriate hydration (7) Hypertension: Qualifiers: Hypertension type: essential hypertension Qualified Code(s): I10 - Essential (primary) hypertension Code(s): I10 - Essential (primary) hypertension Status: Chronic Assessment and Plan: Hx of HTN 118/36 Continue home antihypertensive Metoprolol 12: AM BP 128/59 Continue to monitor Cardiology consulted recommendation of care are appreciated (8) Combined systolic and diastolic congestive heart failure: Qualifiers: Heart failure chronicity: chronic Qualified Code(s): I50.42 - Chronic combined systolic (congestive) and diastolic (congestive) heart failure Code(s): I50.40 - Unspecified combined systolic (congestive) and diast
--- NOTE | 2023-05-09 13:00 | PM.CNCAR ---
Assessment and Plan Assessment and plan (1) Combined systolic and diastolic congestive heart failure: Qualifiers: Heart failure chronicity: chronic Qualified Code(s): I50.42 - Chronic combined systolic (congestive) and diastolic (congestive) heart failure Code(s): I50.40 - Unspecified combined systolic (congestive) and diastolic (congestive) heart failure Status: Chronic Assessment and Plan: Clinically she does not appear to be in any decompensated heart failure. Would recommend continuing her medical regimen without change including spironolactone, lisinopril, furosemide, and metoprolol, although would shift from metoprolol tartrate to succinate given her cardiomyopathy. Cardiology will sign off please call with any questions. (2) ICD (implantable cardioverter-defibrillator) in place: Onset Date: ~2011 Code(s): Z95.810 - Presence of automatic (implantable) cardiac defibrillator Status: Chronic Assessment and Plan: Will have interrogated (3) Generalized weakness: Code(s): R53.1 - Weakness Status: Acute Assessment and Plan: probably secondary to COVID and UTI (4) CAD (coronary artery disease): Qualifiers: Coronary Disease-Associated Artery/Lesion type: [place] artery [place] vs. transplanted heart: wrangell heart Associated angina: without angina Qualified Code(s): I25.10 - Atherosclerotic heart disease of wrangell coronary artery without angina pectoris Code(s): I25.10 - Atherosclerotic heart disease of wrangell coronary artery without angina pectoris Status: Chronic Assessment and Plan: Stable. Continue ASA, statin. History of Present Illness History of Present Illness Consult date/time: 05/09/23 13:00 Requesting physician: Dinah Garcia APRN Consult reason: congestive heart failure Reason For Visit: UTI/COVID Narrative: Lidia Ortega is an 82 year old female with CHF, CAD, and HTN. She is followed by [facility] (Dr. Mehta). She had a Biotronik ICD with a generator change in November 2022. Cardiac catheterization in 2010 showed an occluded Left anterior descending, 60% stenosis of the circumflex and some diffuse disease of the right coronary artery and a stress test in 2019 showed a large anterior apical defect with left ventricular dysfunction, and she has been treated medically. She comes to the hospital now with weakness. She is denying any edema, shortness of breath, orthopnea, chest pain, or palpitations. She has been found to be COVID+ and is being treated for that. At the time of my evaluation she does not have any complaints and is lying comfortably in bed. Review of Systems Review of Systems: All systems reviewed & are unremarkable except as noted in HPI and below PMFSH Past Medical History Medical History Anxiety Arthritis B12 deficiency BPPV (benign paroxysmal positional vertigo) CAD (coronary artery disease) Chronic constipation Chronic hyponatremia Chronic lower back pain CKD (chronic kidney disease) stage 3, GFR 30-59 ml/min Closed fracture of right humerus (09/2019) Combined systolic and diastolic congestive heart failure Echocardiogram 01/2022: EF 35-40%, grade 1 diastolic dysfunction, technically difficult study COPD with asthma COVID-19 (~01/2022) Diabetic peripheral neuropathy Eczema Encounter for servicing of pacemaker at end of battery life Frequent UTI Gallstone pancreatitis (02/04/22) Gastric ulcer Resulting in GI bleed 01/2022 Gout Hyperlipidemia Hypertension IDDM (insulin dependent diabetes mellitus) Insomnia Ischemic cardiomyopathy Mitral regurgitation CONTRERAS (nonalcoholic steatohepatitis) Noted on ultrasound in 2011 NSTEMI (non-ST elevated myocardial infarction) Obstructive sleep apnea Mostly noncompliant with CPAP use Osteoarthritis Peripheral artery disease Portal vein thrombosis (01/2022) No
--- NOTE | 2023-05-09 13:53 | PCPTNOTE ---
attempeted PT eval 1350; pt refused, stating she was tired and not feel well. Unable to convince her to sit up or walk.
[2023-05-09 14:00] VITALS: BP 109/43; PULSE 72; RESP 18; TEMP 36.7; O2SAT 98
--- NOTE | 2023-05-09 14:04 | PCOTNOTE ---
Attempted occupational therapy evaluation. Pt declined to participate this date saying she was too tired. Educated on importance of participating to keep up strength and endurance which will help get out of the hospital sooner. Pt verbalized understanding in return and continued to refuse at this time. Following.
[2023-05-09 16:47] LABS: Glucose Point of Care 81 mg/dl (65-105)
--- NOTE | 2023-05-09 16:48 | PC.NURSE ---
Bety Garcia notified of holding dinner insulin glucose 81 and patient not eating much
[2023-05-09 20:00] VITALS: O2SAT 99
[2023-05-09 20:19] LABS: Glucose Point of Care 233 mg/dl (65-105)
[2023-05-09] MEDS: INSULIN GLARGINE (*BKC) 100 UNITS/ML 25 UNITS SUB-Q (20:31)
[2023-05-09] MEDS: INSULIN ASPART (*BKC) 100 UNITS/ML SUB-Q (20:31)
[2023-05-09] MEDS: ROSUVASTATIN 20 MG TABLET PO (21:12)
[2023-05-09 22:00] VITALS: BP 110/48; PULSE 72; RESP 18; TEMP 36.5; O2SAT 99
[2023-05-10] MEDS: SUCRALFATE 1 GM TABLET PO (05:50)
[2023-05-10 06:00] VITALS: BP 112/56; PULSE 77; RESP 20; TEMP 36.3; O2SAT 100
[2023-05-10 07:45] LABS: Glucose Point of Care 110 mg/dl (65-105)
[2023-05-10 08:10] LABS: Hematocrit 29.9 % (37.0-47.0); Hemoglobin 9.4 g/dL (12.0-15.0); Mean Corpuscular HGB Conc 31.4 g/dl (32-36); Mean Corpuscular Hemoglobin 28.6 pg (26-34); Mean Corpuscular Volume 90.9 fl (80-100); Mean Platelet Volume 8.7 fl (7.4-10.4); Platelet Count Result 271 k/mm3 (150-375); Red Blood Count 3.29 M/mm3 (4.2-5.4); Red Cell Distribution Width 14.3 % (11.5-14.5); White Blood Count 9.3 K/mm3 (4.5-10.0)
[2023-05-10 08:25] LABS: Alanine Aminotransferase 9 U/L (6-35); Albumin Level 3.1 g/dL (3.5-5.1); Alkaline Phosphatase 68 U/L (38-126); Anion Gap 3 mmol/L (8-16); Aspartate Amino Transferase 21 U/L (14-36); Bilirubin,Total 0.6 mg/dL (0.2-1.3); Blood Urea Nitrogen 16 mg/dL (7-17); Calcium 8.6 mg/dL (8.4-10.2); Carbon Dioxide 29 mmol/L (22-30); Chloride 97 mmol/L (98-107); Estimated CRCL calculation 35 ml/min; Estimated Glomerular Filt Rate 48; Glucose 106 mg/dL (65-110); Potassium 3.4 mmol/L (3.4-5.0); Sodium 129 mmol/L (137-145)
[2023-05-10 09:29] VITALS: PULSE 78
[2023-05-10] MEDS: METOPROLOL SUCCINATE EXT REL 50 MG TABCR PO (09:29)
[2023-05-10] MEDS: DOCUSATE SODIUM 100 MG CAPSULE PO ×2 (09:30→16:53)
[2023-05-10] MEDS: HEPARIN SODIUM 5,000 UNITS/ML VIAL 5000 UNITS SUB-Q ×2 (09:30→20:59)
[2023-05-10] MEDS: ASPIRIN 81 MG ENTERIC TABLET PO (09:30)
[2023-05-10] MEDS: MULTIVITAMINS THERAPEUTIC TAB (*BKC) 1 TABLET PO (09:30)
[2023-05-10] MEDS: lisinopriL 10 MG TABLET PO (09:30)
[2023-05-10] MEDS: CITALOPRAM HYDROBROMIDE 20 MG TABLET BY MOUTH (09:30)
[2023-05-10] MEDS: FUROSEMIDE 40 MG TABLET PO (09:30)
[2023-05-10] MEDS: HYDROCORTISONE/PRAMOXINE 2.5% 30 GM CREAM 1 APPLIC RECTAL (09:31)
[2023-05-10] MEDS: CYANOCOBALAMIN 500 MCG TABLET PO (09:32)
[2023-05-10] MEDS: SPIRONOLACTONE 25 MG TABLET PO (09:32)
[2023-05-10] MEDS: INSULIN ASPART (*BKC) 100 UNITS/ML 10 UNITS SUB-Q ×2 (09:43→11:59)
[2023-05-10] MEDS: SODIUM CHLORIDE 0.9% IV 500 ML 75 ML IV CONT (09:46)
[2023-05-10 11:14] LABS: Glucose Point of Care 260 mg/dl (65-105)
[2023-05-10] MEDS: INSULIN ASPART (*BKC) 100 UNITS/ML SUB-Q (11:59)
[2023-05-10 14:00] VITALS: BP 124/50; PULSE 67; RESP 18; TEMP 36.2; O2SAT 96
--- NOTE | 2023-05-10 14:41 | P.PNIM_ITS ---
Progress Note: A&P Assessment and Plan (1) Acute UTI: Code(s): N39.0 - Urinary tract infection, site not specified Status: Acute Assessment and Plan: * UA preformed in ED indicative of UTI * WBC 14.7 * ED started ampicillin/sulbactam * previous microbiology reports showed pansensitive enterococcus * Stafford inserted in ED- monitor output and address removal * Urine cultures ordered in ED - pending * Continue to monitor s/s * 05/09 WBC 9.6 * Urine culture negative * Will discontinue IV abx * Stafford in place and draining white cloudy- Will address removal after consult preformed * Continue to monitor * 05/10: Stafford removed overnight. Patient voided without issue (2) COVID: Code(s): U07.1 - COVID-19 Status: Acute Assessment and Plan: * COVID+ in ED 05/08 * Denies SOB, Chest pain, Cough * Pt also tested positive for COVID in 02/17 * Chest X- Ray- Rad impression notes- Mild atelectasis in left lower lung zone * Continue to monitor respiratory status * Consult pulmonology as needed * 05/09:Denies SOB, Chest pain, Cough. * Lungs clear to auscultation bilaterally * 05/10: Continues to denies symptoms of SOB, chest pain, cough. * continue to monitor (3) Weakness: Code(s): R53.1 - Weakness Status: Acute Assessment and Plan: * Generalized weakness * UA- indicative of UTI, possibly contributory to weakness * COVID+, possibly contributory to weakness * PT/ OT to evaluate and treat * VTE- heparin for decreased mobility * 05/09: Continues to admit weakness * PT/OT ordered- Patient refused today * CC may need to address placement after discharge as son noted in ED he can not care for her in this state * 05/10: Up to chair today * Continue PT/OT * Referrals for SNF placement (4) Pressure ulcer: Qualifiers: Pressure injury location: sacral region Pressure injury stage: stage 2 Qualified Code(s): L89.152 - Pressure ulcer of sacral region, stage 2 Code(s): L89.90 - Pressure ulcer of unspecified site, unspecified stage Status: Acute Assessment and Plan: * Sacral pressure ulcer present upon admission * Patient expresses some pain in this area * Wound consult placed, appreciate recommendations for care. * 05/09: Wound care consulted- Pressure ulcer of sacrum- Treat with silver gel per recommendations * Turn and position as appropriate * 05/10: Continue wound care. Continue to monitor (5) Uncontrolled type 2 diabetes mellitus with hyperglycemia, with long-term current use of insulin: Code(s): E11.65 - Type 2 diabetes mellitus with hyperglycemia; Z79.4 - [facility] (current) use of insulin Status: Chronic Assessment and Plan: * Hx of DM type 2 * Insulin use at home * Blood glucose on admission 262 * Monitor glucose with accucheck * Continue home glucose regimen- adjust as needed with present infection * 05/09: AM glucose 121 * Continue monitoring. Continue current glucose control regimen * Hemoglobin A1C (05/08) 8.8 * 05/10: AM glucose 260 * Continue SSI for correction at [facility] * Continue to monitor (6) CKD (chronic kidney disease): Qualifiers: Chronic kidney disease stage: unspecified stage Qualified Code(s): N18.9 - Chronic kidney disease, unspecified Code(s): N18.9 - Chronic kidney disease, unspecified Status: Acute Assessment and Plan: * CKD- Stage 3 - Baseline GFR 30-59 * Patient is incontinent of urine * BUN- 25, CR-1.40, GFR- 36 * Continue to monitor *
--- NOTE | 2023-05-10 14:41 | PM.IMPN ---
Progress Note: A&P Assessment and Plan (1) Acute UTI: Code(s): N39.0 - Urinary tract infection, site not specified Status: Acute Assessment and Plan: UA preformed in ED indicative of UTI WBC 14.7 ED started ampicillin/sulbactam previous microbiology reports showed pansensitive enterococcus Stafford inserted in ED- monitor output and address removal Urine cultures ordered in ED - pending Continue to monitor s/s 05/09 WBC 9.6 Urine culture negative Will discontinue IV abx Stafford in place and draining white cloudy- Will address removal after consult preformed Continue to monitor 05/10: Stafford removed overnight. Patient voided without issue (2) COVID: Code(s): U07.1 - COVID-19 Status: Acute Assessment and Plan: COVID+ in ED 05/08 Denies SOB, Chest pain, Cough Pt also tested positive for COVID in 02/17 Chest X- Ray- Rad impression notes- Mild atelectasis in left lower lung zone Continue to monitor respiratory status Consult pulmonology as needed 05/09:Denies SOB, Chest pain, Cough. Lungs clear to auscultation bilaterally 05/10: Continues to denies symptoms of SOB, chest pain, cough. continue to monitor (3) Weakness: Code(s): R53.1 - Weakness Status: Acute Assessment and Plan: Generalized weakness UA- indicative of UTI, possibly contributory to weakness COVID+, possibly contributory to weakness PT/ OT to evaluate and treat VTE- heparin for decreased mobility 05/09: Continues to admit weakness PT/OT ordered- Patient refused today CC may need to address placement after discharge as son noted in ED he can not care for her in this state 05/10: Up to chair today Continue PT/OT Referrals for SNF placement (4) Pressure ulcer: Qualifiers: Pressure injury location: sacral region Pressure injury stage: stage 2 Qualified Code(s): L89.152 - Pressure ulcer of sacral region, stage 2 Code(s): L89.90 - Pressure ulcer of unspecified site, unspecified stage Status: Acute Assessment and Plan: Sacral pressure ulcer present upon admission Patient expresses some pain in this area Wound consult placed, appreciate recommendations for care. 2: Wound care consulted- Pressure ulcer of sacrum- Treat with silver gel per recommendations Turn and position as appropriate 05/10: Continue wound care. Continue to monitor (5) Uncontrolled type 2 diabetes mellitus with hyperglycemia, with long-term current use of insulin: Code(s): E11.65 - Type 2 diabetes mellitus with hyperglycemia; Z79.4 - detention (current) use of insulin Status: Chronic Assessment and Plan: Hx of DM type 2 Insulin use at home Blood glucose on admission 262 Monitor glucose with accucheck Continue home glucose regimen- adjust as needed with present infection 2: AM glucose 121 Continue monitoring. Continue current glucose control regimen Hemoglobin A1C (05/08) 8.8 05/10: AM glucose 260 Continue SSI for correction at [facility] Continue to monitor (6) CKD (chronic kidney disease): Qualifiers: Chronic kidney disease stage: unspecified stage Qualified Code(s): N18.9 - Chronic kidney disease, unspecified Code(s): N18.9 - Chronic kidney disease, unspecified Status: Acute Assessment and Plan: CKD- Stage 3 - Baseline GFR 30-59 Patient is incontinent of urine BUN- 25, CR-1.40, GFR- 36 Continue to monitor 05/09: BUN- 18, CR- 1.10, GFR- 48. Shows improvement Continue to monitor trends encouraged appropriate hydration 05/10: BUN- 16, CR, 1.10,. GFR- 46 Na 129- NS @75 500ml Once (7) Hypertension: Qualifiers: Hypertension type: essential hypertension Qualified Code(s): I10 - Essential (primary) hypertension Code(s): I10 - Essential (primary) hypertension Status: Chronic Assessment and Plan: Hx of HTN 118/36 Continue home antihypertensive
[2023-05-10 16:25] LABS: Glucose Point of Care 78 mg/dl (65-105)
[2023-05-10 16:25] LABS: Glucose Point of Care 45 mg/dl (65-105)
[2023-05-10 19:22] VITALS: O2SAT 97
[2023-05-10 20:52] LABS: Glucose Point of Care 178 mg/dl (65-105)
[2023-05-10] MEDS: INSULIN GLARGINE (*BKC) 100 UNITS/ML 25 UNITS SUB-Q (20:58)
[2023-05-10] MEDS: ROSUVASTATIN 20 MG TABLET PO (20:59)
[2023-05-10 21:33] VITALS: BP 114/49; PULSE 60; RESP 16; TEMP 36.1; O2SAT 97
[2023-05-11 05:47] VITALS: BP 141/46; PULSE 74; RESP 13; TEMP 36.3; O2SAT 98
[2023-05-11] MEDS: SUCRALFATE 1 GM TABLET PO (05:48)
[2023-05-11 06:36] LABS: Hematocrit 29.7 % (37.0-47.0); Hemoglobin 9.3 g/dL (12.0-15.0); Mean Corpuscular HGB Conc 31.3 g/dl (32-36); Mean Corpuscular Hemoglobin 28.6 pg (26-34); Mean Corpuscular Volume 91.4 fl (80-100); Mean Platelet Volume 9.5 fl (7.4-10.4); Platelet Count Result 292 k/mm3 (150-375); Red Blood Count 3.25 M/mm3 (4.2-5.4); White Blood Count 11.7 K/mm3 (4.5-10.0)
[2023-05-11 06:39] LABS: Alanine Aminotransferase 11 U/L (6-35); Albumin Level 3.2 g/dL (3.5-5.1); Alkaline Phosphatase 71 U/L (38-126); Anion Gap 5 mmol/L (8-16); Aspartate Amino Transferase 22 U/L (14-36); Bilirubin,Total 0.6 mg/dL (0.2-1.3); Blood Urea Nitrogen 19 mg/dL (7-17); Calcium 8.4 mg/dL (8.4-10.2); Carbon Dioxide 27 mmol/L (22-30); Chloride 94 mmol/L (98-107); Estimated CRCL calculation 35 ml/min; Estimated Glomerular Filt Rate 48; Glucose 149 mg/dL (65-110); Potassium 3.6 mmol/L (3.4-5.0); Sodium 126 mmol/L (137-145)
[2023-05-11 07:50] LABS: Glucose Point of Care 150 mg/dl (65-105)
[2023-05-11] MEDS: DOCUSATE SODIUM 100 MG CAPSULE PO ×2 (07:51→16:09)
[2023-05-11] MEDS: CYANOCOBALAMIN 500 MCG TABLET PO (07:51)
[2023-05-11] MEDS: FUROSEMIDE 40 MG TABLET PO (07:51)
[2023-05-11] MEDS: MULTIVITAMINS THERAPEUTIC TAB (*BKC) 1 TABLET PO (07:52)
[2023-05-11] MEDS: METOPROLOL SUCCINATE EXT REL 50 MG TABCR PO (07:52)
[2023-05-11] MEDS: CITALOPRAM HYDROBROMIDE 20 MG TABLET BY MOUTH (07:52)
[2023-05-11] MEDS: ASPIRIN 81 MG ENTERIC TABLET PO (07:52)
[2023-05-11] MEDS: SPIRONOLACTONE 25 MG TABLET PO (07:52)
[2023-05-11] MEDS: HEPARIN SODIUM 5,000 UNITS/ML VIAL 5000 UNITS SUB-Q ×2 (07:52→21:55)
[2023-05-11] MEDS: HYDROCORTISONE/PRAMOXINE 2.5% 30 GM CREAM 1 APPLIC RECTAL (07:55)
[2023-05-11] MEDS: INSULIN ASPART (*BKC) 100 UNITS/ML 10 UNITS SUB-Q ×3 (08:02→16:44)
[2023-05-11] MEDS: lisinopriL 10 MG TABLET PO (08:03)
[2023-05-11 11:36] LABS: Glucose Point of Care 233 mg/dl (65-105)
[2023-05-11] MEDS: INSULIN ASPART (*BKC) 100 UNITS/ML SUB-Q ×2 (11:45→16:44)
[2023-05-11 14:00] VITALS: BP 107/36; PULSE 66; RESP 16; TEMP 36.3; O2SAT 99
--- NOTE | 2023-05-11 14:00 | P.PNIM_ITS ---
Progress Note: A&P Assessment and Plan (1) Acute UTI: Code(s): N39.0 - Urinary tract infection, site not specified Status: Acute Assessment and Plan: Urine suspicious for infection. * Uine culture negative. * ED started ampicillin/sulbactam -- discontinued * Stafford discontinued (2) COVID: Code(s): U07.1 - COVID-19 Status: Acute Assessment and Plan: * COVID+ in ED 05/08 * Denies SOB, Chest pain, Cough * Pt also tested positive for COVID in 02/17 * Chest X- Ray- Rad impression notes- mild atelectasis * Continue to monitor respiratory status * Not requiring any oxygen supplementation at this time (3) Weakness: Code(s): R53.1 - Weakness Status: Acute Assessment and Plan: * Generalized weakness * UA- indicative of UTI, possibly contributory to weakness * COVID+, possibly contributory to weakness * PT/ OT to evaluate and treat * Referrals for SNF placement (4) Pressure ulcer: Qualifiers: Pressure injury location: sacral region Pressure injury stage: stage 2 Qualified Code(s): L89.152 - Pressure ulcer of sacral region, stage 2 Code(s): L89.90 - Pressure ulcer of unspecified site, unspecified stage Status: Acute Assessment and Plan: * Sacral pressure ulcer present upon admission * Patient expresses some pain in this area * Wound consult placed, appreciate recommendations for care. * Treat with silver gel per recommendations * Turn and position as appropriate (5) Uncontrolled type 2 diabetes mellitus with hyperglycemia, with long-term current use of insulin: Code(s): E11.65 - Type 2 diabetes mellitus with hyperglycemia; Z79.4 - conveyancer (c urrent) use of insulin Status: Chronic Assessment and Plan: * Hx of DM type 2 * Insulin use at home * Monitor glucose with accucheck * Continue home glucose regimen- adjust as needed with present infection * Initiate hypoglycemic precautions (6) CKD (chronic kidney disease): Qualifiers: Chronic kidney disease stage: unspecified stage Qualified Code(s): N18.9 - Chronic kidney disease, unspecified Code(s): N18.9 - Chronic kidney disease, unspecified Status: Acute Assessment and Plan: patient's kidney function was decreased upon admission. * Improved with a BUN creatinine of 19/1.1 (7) Hypertension: Qualifiers: Hypertension type: essential hypertension Qualified Code(s): I10 - Essential (primary) hypertension Code(s): I10 - Essential (primary) hypertension Status: Chronic Assessment and Plan: * Hx of HTN * Continue home antihypertensive Metoprolol (8) Combined systolic and diastolic congestive heart failure: Qualifiers: Heart failure chronicity: chronic Qualified Code(s): I50.42 - Chronic combined systolic (congestive) and diastolic (congestive) heart failure Code(s): I50.40 - Unspecified combined systolic (congestive) and diastolic (congestive) heart failure Status: Chronic Assessment and Plan: Heart failure stable at this time. * Patient has ICD in place * Cardiology consulted and note she does not appear to being any decompensated heart failure. They suggest continuing the current medical regimen and substituting metoprolol tartrate to succinate. Per nursing pacemaker was interrogated with no issues found.
--- NOTE | 2023-05-11 14:00 | PM.IMPN ---
Progress Note: A&P Assessment and Plan (1) Acute UTI: Code(s): N39.0 - Urinary tract infection, site not specified Status: Acute Assessment and Plan: Urine suspicious for infection. Uine culture negative. ED started ampicillin/sulbactam -- discontinued Stafford discontinued (2) COVID: Code(s): U07.1 - COVID-19 Status: Acute Assessment and Plan: COVID+ in ED 05/08 Denies SOB, Chest pain, Cough Pt also tested positive for COVID in 02/17 Chest X- Ray- Rad impression notes- mild atelectasis Continue to monitor respiratory status Not requiring any oxygen supplementation at this time (3) Weakness: Code(s): R53.1 - Weakness Status: Acute Assessment and Plan: Generalized weakness UA- indicative of UTI, possibly contributory to weakness COVID+, possibly contributory to weakness PT/ OT to evaluate and treat Referrals for SNF placement (4) Pressure ulcer: Qualifiers: Pressure injury location: sacral region Pressure injury stage: stage 2 Qualified Code(s): L89.152 - Pressure ulcer of sacral region, stage 2 Code(s): L89.90 - Pressure ulcer of unspecified site, unspecified stage Status: Acute Assessment and Plan: Sacral pressure ulcer present upon admission Patient expresses some pain in this area Wound consult placed, appreciate recommendations for care. Treat with silver gel per recommendations Turn and position as appropriate (5) Uncontrolled type 2 diabetes mellitus with hyperglycemia, with long-term current use of insulin: Code(s): E11.65 - Type 2 diabetes mellitus with hyperglycemia; Z79.4 - nursing home (current) use of insulin Status: Chronic Assessment and Plan: Hx of DM type 2 Insulin use at home Monitor glucose with accucheck Continue home glucose regimen- adjust as needed with present infection Initiate hypoglycemic precautions (6) CKD (chronic kidney disease): Qualifiers: Chronic kidney disease stage: unspecified stage Qualified Code(s): N18.9 - Chronic kidney disease, unspecified Code(s): N18.9 - Chronic kidney disease, unspecified Status: Acute Assessment and Plan: patient's kidney function was decreased upon admission. Improved with a BUN creatinine of 19/1.1 (7) Hypertension: Qualifiers: Hypertension type: essential hypertension Qualified Code(s): I10 - Essential (primary) hypertension Code(s): I10 - Essential (primary) hypertension Status: Chronic Assessment and Plan: Hx of HTN Continue home antihypertensive Metoprolol (8) Combined systolic and diastolic congestive heart failure: Qualifiers: Heart failure chronicity: chronic Qualified Code(s): I50.42 - Chronic combined systolic (congestive) and diastolic (congestive) heart failure Code(s): I50.40 - Unspecified combined systolic (congestive) and diastolic (congestive) heart failure Status: Chronic Assessment and Plan: Heart failure stable at this time. Patient has ICD in place Cardiology consulted and note she does not appear to being any decompensated heart failure. They suggest continuing the current medical regimen and substituting metoprolol tartrate to succinate. Per nursing pacemaker was interrogated with no issues found. (9) Anxiety and depression: Code(s): F41.9 - Anxiety disorder, unspecified; F32.A - Depression, unspecified Status: Acute Assessment and Plan: Continue home Citalopram, and Alprazolam PRN Subjective Date/time seen: 05/11/23 14:00 Interval history: patient doing well today. She does have some low sodium give her some salt tabs for this. PT and OT continue to work with her. The goal is a arrived for the patient or some other type of placement. Discussed case with care coordination. Will maria m
[2023-05-11] MEDS: SODIUM CHLORIDE 500 MG TABLET 750 MG PO (16:09)
[2023-05-11 16:46] LABS: Glucose Point of Care 271 mg/dl (65-105)
[2023-05-11 20:00] VITALS: PULSE 66; RESP 16; O2SAT 99
[2023-05-11 21:37] VITALS: BP 125/45; PULSE 68; RESP 16; TEMP 36.4; O2SAT 98
[2023-05-11] MEDS: INSULIN GLARGINE (*BKC) 100 UNITS/ML 25 UNITS SUB-Q (21:55)
[2023-05-11] MEDS: ROSUVASTATIN 20 MG TABLET PO (21:55)
[2023-05-11 22:02] LABS: Glucose Point of Care 177 mg/dl (65-105)
[2023-05-12] MEDS: SUCRALFATE 1 GM TABLET PO (05:30)
[2023-05-12 05:36] VITALS: BP 112/63; PULSE 69; RESP 16; TEMP 36.9; O2SAT 96
[2023-05-12 06:44] LABS: Hematocrit 28.5 % (37.0-47.0); Hemoglobin 9.2 g/dL (12.0-15.0); Mean Corpuscular HGB Conc 32.3 g/dl (32-36); Mean Corpuscular Hemoglobin 29.1 pg (26-34); Mean Corpuscular Volume 90.2 fl (80-100); Mean Platelet Volume 8.9 fl (7.4-10.4); Platelet Count Result 306 k/mm3 (150-375); Red Blood Count 3.16 M/mm3 (4.2-5.4); Red Cell Distribution Width 13.8 % (11.5-14.5); White Blood Count 8.4 K/mm3 (4.5-10.0)
[2023-05-12 07:04] LABS: Anion Gap 5 mmol/L (8-16); Blood Urea Nitrogen 22 mg/dL (7-17); Calcium 8.4 mg/dL (8.4-10.2); Carbon Dioxide 31 mmol/L (22-30); Chloride 91 mmol/L (98-107); Estimated CRCL calculation 30 ml/min; Estimated Glomerular Filt Rate 39; Glucose 163 mg/dL (65-110); Potassium 3.4 mmol/L (3.4-5.0); Sodium 127 mmol/L (137-145)
[2023-05-12 07:46] LABS: Glucose Point of Care 173 mg/dl (65-105)
[2023-05-12] MEDS: SODIUM CHLORIDE 500 MG TABLET 750 MG PO ×2 (09:37→17:08)
[2023-05-12] MEDS: MULTIVITAMINS THERAPEUTIC TAB (*BKC) 1 TABLET PO (09:38)
[2023-05-12] MEDS: ASPIRIN 81 MG ENTERIC TABLET PO (09:38)
[2023-05-12] MEDS: SPIRONOLACTONE 25 MG TABLET PO (09:38)
[2023-05-12] MEDS: CITALOPRAM HYDROBROMIDE 20 MG TABLET BY MOUTH (09:38)
[2023-05-12] MEDS: FUROSEMIDE 40 MG TABLET PO (09:39)
[2023-05-12] MEDS: CYANOCOBALAMIN 500 MCG TABLET PO (09:39)
[2023-05-12] MEDS: DOCUSATE SODIUM 100 MG CAPSULE PO ×2 (09:40→17:09)
[2023-05-12] MEDS: lisinopriL 10 MG TABLET PO (09:40)
[2023-05-12] MEDS: HEPARIN SODIUM 5,000 UNITS/ML VIAL 5000 UNITS SUB-Q (09:41)
[2023-05-12] MEDS: HYDROCORTISONE/PRAMOXINE 2.5% 30 GM CREAM 1 APPLIC RECTAL ×2 (09:41→17:00)
[2023-05-12 09:42] VITALS: PULSE 64
[2023-05-12] MEDS: METOPROLOL SUCCINATE EXT REL 50 MG TABCR PO (09:42)
[2023-05-12] MEDS: INSULIN ASPART (*BKC) 100 UNITS/ML 10 UNITS SUB-Q ×2 (09:42→13:03)
--- NOTE | 2023-05-12 11:15 | PCOTNOTE ---
Attempted to see Patient this A.M. Patient adamantly refused to participate, Patient stated, I don't want to and I need sleep , leave me alone .
[2023-05-12 11:27] LABS: Glucose Point of Care 211 mg/dl (65-105)
--- NOTE | 2023-05-12 11:56 | PC.NURSE ---
On 05/12/23, the SOCIAL MEDIA STRATEGIST, DINAH BUITRAGO, provided care and completed Fon documentation on this patient. I have reviewed the SOCIAL MEDIA STRATEGIST's documentation and agree with the findings.
--- NOTE | 2023-05-12 12:10 | PCPTNOTE ---
Patient refused treatment this session. Patient would not participate and states I want to sleep and that is all I want to do! Educated patient on the importance of participating in therapy to improve strength and mobility. Patient continued to refuse.
[2023-05-12] MEDS: INSULIN ASPART (*BKC) 100 UNITS/ML SUB-Q (13:02)
[2023-05-12 14:00] VITALS: BP 109/48; PULSE 59; RESP 18; TEMP 36.2; O2SAT 97
--- NOTE | 2023-05-12 15:05 | PCOTNOTE ---
Attempted again to see Patient, Patient refused, stating, No way .
--- NOTE | 2023-05-12 15:49 | PM.DS ---
DS: Admitting Diagnosis Discharge Date 05/12/23 Admitting Diagnosis COVID, UTI DS: Discharge Diagnosis Discharge Diagnosis (1) Acute UTI: Code(s): N39.0 - Urinary tract infection, site not specified Status: Acute (2) COVID: Code(s): U07.1 - COVID-19 Status: Acute (3) Weakness: Code(s): R53.1 - Weakness Status: Acute (4) Pressure ulcer: Qualifiers: Pressure injury location: sacral region Pressure injury stage: stage 2 Qualified Code(s): L89.152 - Pressure ulcer of sacral region, stage 2 Code(s): L89.90 - Pressure ulcer of unspecified site, unspecified stage Status: Acute (5) Uncontrolled type 2 diabetes mellitus with hyperglycemia, with long-term current use of insulin: Code(s): E11.65 - Type 2 diabetes mellitus with hyperglycemia; Z79.4 - shelter (current) use of insulin Status: Chronic (6) CKD (chronic kidney disease): Qualifiers: Chronic kidney disease stage: unspecified stage Qualified Code(s): N18.9 - Chronic kidney disease, unspecified Code(s): N18.9 - Chronic kidney disease, unspecified Status: Acute (7) Hypertension: Qualifiers: Hypertension type: essential hypertension Qualified Code(s): I10 - Essential (primary) hypertension Code(s): I10 - Essential (primary) hypertension Status: Chronic (8) Combined systolic and diastolic congestive heart failure: Qualifiers: Heart failure chronicity: chronic Qualified Code(s): I50.42 - Chronic combined systolic (congestive) and diastolic (congestive) heart failure Code(s): I50.40 - Unspecified combined systolic (congestive) and diastolic (congestive) heart failure Status: Chronic (9) Anxiety and depression: Code(s): F41.9 - Anxiety disorder, unspecified; F32.A - Depression, unspecified Status: Acute DS: Summary Hospital Course Hospital Course: This is an 82-year-old female with past medical history of anxiety, CAD, hyponatremia, constipation, CKD stage 3, CHF, COPD, neuropathy, pacemaker/ defibrillator, CABG, type 2 diabetes, hypertension, [place], STEMI and obstructive sleep apnea the presented to the ED on 05/08/2023 due to increased weakness. Patient was found to be positive for COVID-19, elevated white blood cell count, and anemia with hemoglobin of 10.7. Her UA was suspicious for infection and she was started on Zosyn due to history of pansensitive Enterococcus. Patient did not require increased oxygen demands that she was not started on remdesivir or dexamethasone. Her urine culture came back negative for bacterial growth and IV antibiotics were discontinued. PT and OT worked with the patient due to her increased weakness and recommended [facility]. Patient was accepted [facility]. She did have some hyponatremia although looking back in patient's record this is chronic for her. Her labs and vital signs are stable and she is medically clear for discharge at this time. Time Spent with Patient Time attestation: Total time spent providing and/or coordinating discharge services: Exam Narrative: GENERAL: Comfortable, no acute distress HENMT: moist mucous membranes EYES: EOM intact b/l NECK: no lymphadenopathy RESPIRATORY: clear to auscultation CARDIO: RRR GI: soft, nontender, bowel sounds present SKIN: no rashes EXTREMITIES: no edema, redness or tenderness DS: Data Data Completed and Pending Labs on day of discharge: Labs from last 24 hours 05/12/23 05/12/23 05/12/23 11:25 07:44 05:58 WBC 8.4 RBC 3.16 L Hgb 9.2 L Hct 28.5 L MCV 90.2 MCH 29.1 MCHC 32.3 RDW 13.8 Plt Count 306 MPV 8.9 Sodium 127 L Potassium 3.4 Chloride 91 L Carbon Dioxide 31 H Anion Gap 5 L BUN 22 H Creatinine 1.30 H Estim Creat Clear Calc 30 Estimated GFR 39 L Glucose 163 H POC Capillary Glucose 211 H 173 H Calcium 8.4 Random Cortisol 17.30 05/11
[2023-05-12 16:43] LABS: Glucose Point of Care 43 mg/dl (65-105)
[2023-05-12 17:08] LABS: Glucose Point of Care 129 mg/dl (65-105)
== END 2023-05-12 19:43 | DRG 178 ==
LOC: ANHED 05:18 → ANH3MEDSUR 05:49
PROVIDERS: Nurse Practitioner Family; Admitting Provider Internal Medicine; Emergency Provider Emergency Medicine; PCP Nurse Practitioner Family; Visit Provider Internal Medicine Critical Care Medicine
DX: U07.1 COVID-19 (principal); E87.1 Hypo-osmolality and hyponatremia; I13.0 Hypertensive heart and chronic kidney disease with heart failure and stage 1 through stage 4 chronic kidney disease, or unspecified chronic kidney disease; I50.42 Chronic combined systolic (congestive) and diastolic (congestive) heart failure; N18.30 Chronic kidney disease, stage 3 unspecified; L89.152 Pressure ulcer of sacral region, stage 2; E11.65 Type 2 diabetes mellitus with hyperglycemia; G47.33 Obstructive sleep apnea (adult) (pediatric); E11.22 Type 2 diabetes mellitus with diabetic chronic kidney disease; D64.9 Anemia, unspecified; I25.10 Atherosclerotic heart disease of native coronary artery without angina pectoris; J44.9 Chronic obstructive pulmonary disease, unspecified; E11.42 Type 2 diabetes mellitus with diabetic polyneuropathy; F41.9 Anxiety disorder, unspecified; F32.A Depression, unspecified; M19.90 Unspecified osteoarthritis, unspecified site; Z79.4 Long term (current) use of insulin; Z95.1 Presence of aortocoronary bypass graft; Z95.810 Presence of automatic (implantable) cardiac defibrillator; I25.2 Old myocardial infarction; Z98.84 Bariatric surgery status; Z90.49 Acquired absence of other specified parts of digestive tract; Z90.710 Acquired absence of both cervix and uterus; Z90.722 Acquired absence of ovaries, bilateral; Z95.5 Presence of coronary angioplasty implant and graft; Z87.891 Personal history of nicotine dependence
CPT/HCPCS: 36415; 71045; 80048; 80053; 81001; 82533; 82948; 83036; 83605; 83735; 83880; 84100; 84443; 84484; 85025; 85027; 85610; 85730; 87040; 87086; 87637; 93005; 96360; 97110; 97161; 97166; 97530; 97535; 99285; A9270; J0295; J1644; J1815; J7030; J7040

== ENCOUNTER 2023-05-25 22:21 | Inpatient (IN) | payer MEDICARE, BC, SELFPAY ==
--- NOTE | ~2023-05-25 | XR_ITS ---
EXAMINATION: XR chest 1V portable INDICATION: Weakness TECHNIQUE: Portable AP chest at 2314 hours COMPARISON: 05/08/2023 FINDINGS: The lungs are free of acute opacities. No pleural effusion or pneumothorax. The cardiomedia stinal silhouette is normal. A dual-lead cardiac pacemaker of the left chest wall ends with leads in expected locations. IMPRESSION: 1. No acute cardiopulmonary abnormality. Reviewed, dictated and finalized at location F. R LEVER OPERATOR
--- NOTE | ~2023-05-25 | CT_ITS ---
Non-contrast CT scan of the Abdomen and Pelvis Clinical indication: Leukocytosis, sacral wound Technique: 2.5 mm axial scans were obtained through the abdomen and pelvis without intravenous or or al contrast. Dose reduction technique was used on this scan by utilizing automated exposure control a nd iterative reconstruction technique. The dose-length product (DLP) was 663.42 mGy-cm. COMPARISON: 02/21/2023 Findings: Images through the lung bases reveal no abnormalities. There is moderate to severe bilateral hydroureteronephrosis. No stones identified. The liver, spleen, pancreas, and adrenals appear normal. Calcified gallstones are present. There are atherosclerotic calcifications of the aorta. There is no evidence of bowel obstruction. Images through the pelvis were performed. There is no evidence of ascites or lymphadenopathy. There i s diffuse urinary bladder thickening. No pelvic mass evident. No ascites. Possible small sacral decub itus ulcer. Impression: Moderate to severe bilateral hydroureteronephrosis, similar to prior exam. Diffuse urinary bladder wall thickening. Correlate for cystitis. Cholelithiasis. Possible small sacral decubitus ulcer. Correlate with physical exam. Reviewed, dictated and finalized at [facility]. OWER Impression: Moderate to severe bilateral hydroureteronephrosis, similar to prior exam. Diffuse urinary bladder wall thickening. Correlate for cystitis. Cholelithiasis. Possible small sacral decubitus ulcer. Correlate with physical exam.
[2023-05-25 22:22] VITALS: BP 109/62; PULSE 102; RESP 21; TEMP 37.9; O2SAT 96
[2023-05-25 22:28] VITALS: BP 109/51; PULSE 102; RESP 30; O2SAT 96
--- NOTE | 2023-05-25 22:28 | ECG_ITS ---
Measurements Intervals [place] Rate: 101 P: 52 W[place]: 136 QRS: -31 QRSD: 142 T: 99 QT: 390 QTc: 506 Interpretive Statements SINUS TACHYCARDIA LEFT AXIS DEVIATION [QRS AXIS < -30] RIGHT BUNDLE BRANCH BLOCK MINIMAL VOLTAGE CRITERIA FOR LVH, CONSIDER NORMAL VARIANT [MEETS CRITERIA IN ONE OF: R(aVL), S(V1), R(V5), R(V5/V6)+S(V1)] SEPTAL MYOCARDIAL INFARCTION , OF INDETERMINATE AGE [40+ ms Q WAVE IN V1/V2] COMPARED TO ECG 05/08/2023 02:55:35 SINUS TACHYCARDIA NOW PRESENT Electronically Signed On 05-26-2023 15:40:10 GAS OR PETROLEUM OPERATOR by Yajaira Mast M.D.
[2023-05-25 22:47] LABS: Basophils Percent Auto 0.2 % (0.2-1.2); Hematocrit 29.5 % (37.0-47.0); Hemoglobin 9.6 g/dL (12.0-15.0); Immature Granulocyte Absolute 0.17 K/mm3 (0.00-0.031); Immature Granulocyte Percent A 0.7 % (0-0.5); Lymphocytes Absolute Auto 0.48 K/mm3 (0.9-3.2); Lymphocytes Percent Auto 2.1 % (18.3-44.2); Mean Corpuscular HGB Conc 32.5 g/dl (32-36); Mean Corpuscular Hemoglobin 28.7 pg (26-34); Mean Corpuscular Volume 88.3 fl (80-100); Mean Platelet Volume 8.6 fl (7.4-10.4); Monocytes Percent Auto 8.9 % (2.6-8.5); Neutrophils Absolute Auto 20.1 K/mm3 (1.3-6.7); Neutrophils Percent Auto 88.1 % (45.5-73.1); Platelet Count Result 343 k/mm3 (150-375); Red Blood Count 3.34 M/mm3 (4.2-5.4); Red Cell Distribution Width 13.4 % (11.5-14.5); White Blood Count 22.8 K/mm3 (4.5-10.0)
[2023-05-25] MEDS: ACETAMINOPHEN 500 MG TABLET 1000 MG PO (22:47)
[2023-05-25] MEDS: SODIUM CHLORIDE 0.9% IV 1,000 ML 999 ML IV CONT (22:47)
[2023-05-25 22:58] LABS: Alanine Aminotransferase 21 U/L (6-35); Albumin Level 3.4 g/dL (3.5-5.1); Alkaline Phosphatase 101 U/L (38-126); Anion Gap 8 mmol/L (8-16); Aspartate Amino Transferase 35 U/L (14-36); Bilirubin,Total 0.9 mg/dL (0.2-1.3); Blood Urea Nitrogen 63 mg/dL (7-17); Calcium 8.6 mg/dL (8.4-10.2); Carbon Dioxide 20 mmol/L (22-30); Chloride 95 mmol/L (98-107); Estimated CRCL calculation 16 ml/min; Estimated Glomerular Filt Rate 23; Glucose 275 mg/dL (65-110); Potassium 4.6 mmol/L (3.4-5.0); Sodium 123 mmol/L (137-145)
[2023-05-25 23:03] LABS: INR 1.2; Prothrombin Time 15.3 Seconds (11.1-14.7)
[2023-05-25 23:04] LABS: Partial Thromboplastin Time 31.7 SECONDS (22.3-36.8)
[2023-05-25 23:27] LABS: Magnesium 2.5 mg/dL (1.6-2.3)
[2023-05-25 23:30] LABS: Lactic Acid Reflex 0.7 mmol/L (0.7-2.0)
[2023-05-25 23:54] LABS: Troponin I 0.071 ng/mL (0.000-0.034)
[2023-05-25 23:59] LABS: Influenza A QL RT-PCR Negative (Negative); Influenza B QL RT-PCR Negative (Negative); RSV RNA, RT-PCR Negative (Negative); SARS-CoV-2 RNA PCR Negative (Negative)
[2023-05-26] VITALS (25 sets, daily range): BP systolic 90–136; BP diastolic 37–56; PULSE 58–88; RESP 13–21; TEMP 35.6–36.7; O2SAT 95–100; BMI 25.0; BMI 25.2
[2023-05-26 00:12] LABS: Procalcitonin 1.7 ng/mL
--- NOTE | 2023-05-26 00:16 | ED.GENADULT ---
HPI - General Adult General Chief complaint: Weakness Stated complaint: lethargy Time Seen by Provider: 05/25/23 22:27 History of Present Illness HPI narrative: patient 82-year-old female who presents emergency department with chief complaint of generalized weakness and altered mental status. the patient is resident of [facility] and at the facility and noticed that she was a little confused today and also very weak. Patient does normally alert and oriented x3 and currently is able answer all questions appropriately the patient complains of pain in her sacral area and reports that she has a wound on her buttocks. Related Data Allergies Allergy/AdvReac Type Severity Reaction Status Date / Time No Known Allergies Allergy Unknown Verified 05/08/23 02:55 Review of Systems Review of Systems: A 10 system review of systems was completed on the patient and is negative except for what is stated in the HPI. Nursing and ancillary documentation was reviewed. [facility] Past Medical History Medical History Anxiety Arthritis B12 deficiency BPPV (benign paroxysmal positional vertigo) CAD (coronary artery disease) Chronic constipation Chronic hyponatremia Chronic lower back pain CKD (chronic kidney disease) stage 3, GFR 30-59 ml/min Closed fracture of right humerus (09/2019) Combined systolic and diastolic congestive heart failure Echocardiogram 01/2022: EF 35-40%, grade 1 diastolic dysfunction, technically difficult study COPD with asthma COVID-19 (~01/2022) Diabetic peripheral neuropathy Eczema Encounter for servicing of pacemaker at end of battery life Frequent UTI Gallstone pancreatitis (02/04/22) Gastric ulcer Resulting in GI bleed 01/2022 Gout Hyperlipidemia Hypertension IDDM (insulin dependent diabetes mellitus) Insomnia Ischemic cardiomyopathy Mitral regurgitation CONTRERAS (nonalcoholic steatohepatitis) Noted on ultrasound in 2011 NSTEMI (non-ST elevated myocardial infarction) Obstructive sleep apnea Mostly noncompliant with CPAP use Osteoarthritis Peripheral artery disease Portal vein thrombosis (01/2022) Not treated due to active GI bleed of the time Reflux esophagitis Seasonal allergies Type 2 diabetes mellitus Historically uncontrolled hemoglobin A1c 9% on 08/21/2022 Vitamin D deficiency Surgical History Surgical History Gastric bypass status for obesity (~2001) History of appendectomy History of implantable cardiac defibrillator (ICD) History of Abigail-en-Y gastric bypass 2001 per review of EMR by hospitalist; Patient states performed at [place] History of total hysterectomy with bilateral salpingo-oophorectomy (BSO) For benign disease History of ventral hernia repair Post-op changes noted on CT Hx of heart artery stent ICD (implantable cardioverter-defibrillator) in place (~2011) Status post panniculectomy Family History Family History Father Heart disease Acute myocardial infarction Arthritis Patient's father is Diabetes mellitus Mother Heart disease Acute myocardial infarction Arthritis Hypertension Diabetes mellitus CHF (congestive heart failure) Obesity Sibling Heart disease Obesity Sibling Family history of malignant neoplasm Social History Social History Social History: Lidia Ortega lives at her home in [place] with her son, Mak. she has another child also. She is retired. She is a former smoker and believes she quit approximately 13 years ago. 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 living in Code status: Full code Healthcare power of cargo supervisor: Tasia Smoking packs per day: 1 Smoking cigarettes per day: 20.0 Years smoked: 50 Smoking pack-years:
[2023-05-26 00:35] LABS: Glucose Point of Care 262 mg/dl (65-105)
[2023-05-26] MEDS: SODIUM CHLORIDE 0.9% IV 1,000 ML 999 ML IV CONT (00:35)
--- NOTE | 2023-05-26 00:44 | PC.NURSE ---
Pt is incontinent and is refusing straight urinary catheter. This RN explained to pt importance of obtaining a urine sample and pt screamed No! . Pt also stated leave me alone im too tired . Provider made aware. Provider also made aware of pts low BPs. Fluids and antibiotics started at this time.
[2023-05-26] MEDS: CEFEPIME 2 GM/NS 50 ML 2 GM/50 ML BAG IVPB (00:55)
[2023-05-26] MEDS: VANCOMYCIN 1,000 MG/NS 250 ML 1,000 MG/250 ML BAG 250 MG IVPB (02:22)
[2023-05-26 02:51] LABS: Appearance Urine Turbid (Clear); Bacteria Urine Rare /hpf; Bilirubin Urine Negative (Negative); Blood Urine 3+ (Negative); Color Urine Yellow (Yellow); Glucose Urine UA Negative (Negative); Ketones Urine Trace mg/dL (Negative); Leukocyte Esterase Ur 3+ LEU/UL (Negative); Nitrate Urine Negative (Negative); Non Pathogenic Casts 0-2; Protein Urine 2+ mg/dL (Negative); Specific Grav Ur 1.014 (1.001-1.035); Squamous Epithelial Cell Urine None seen /hpf (Few); Urobilinogen Urine 0.2 mg/dL (<2.0); WBC Urine >100 /hpf; pH Urine 5.5 (5.0-9.0)
[2023-05-26 03:27] LABS: Add Urine Microscopic? YES
[2023-05-26] MEDS: ASPIRIN 81 MG CHEWABLE TABLET 324 MG PO (03:45)
[2023-05-26] MEDS: SODIUM CHLORIDE 0.9% IV 1,000 ML 125 ML IV CONT ×2 (03:50→12:38)
--- NOTE | 2023-05-26 04:51 | ADMIMU ---
This patient, Lidia Ortega, was admitted to IMU status, and placed in IMU Room 211-01. Patient/family oriented to hospital policies and general routines including ID bracelet, bed and alarms, visiting hours, pain management, procedures, bathroom and other care routines, personal items, smoking policy, room service/diet, and visiting hours. Valuables list has been completed. Information on how to activate the Rapid Response Team has been discussed. Patient/Family are encouraged to report perceived risks to care and to ask questions if they do not understand what they are told or what they should do.
[2023-05-26 07:53] LABS: Troponin I 0.059 ng/mL (0.000-0.034)
[2023-05-26 08:22] LABS: Glucose Point of Care 176 mg/dl (65-105)
[2023-05-26 09:24] LABS: Anion Gap 9 mmol/L (8-16); Blood Urea Nitrogen 57 mg/dL (7-17); Calcium 7.9 mg/dL (8.4-10.2); Carbon Dioxide 15 mmol/L (22-30); Chloride 103 mmol/L (98-107); Estimated CRCL calculation 20 ml/min; Estimated Glomerular Filt Rate 29; Glucose 209 mg/dL (65-110); Phosphorus 4.5 mg/dL (2.5-4.5); Potassium 3.9 mmol/L (3.4-5.0); Sodium 127 mmol/L (137-145)
[2023-05-26 10:12] LABS: Basophils Absolute Auto 0.1 K/mm3 (0.0-0.1); Basophils Percent Auto 0.4 % (0.2-1.2); Eosinophils Absolute Auto 0.2 K/mm3 (0-0.3); Eosinophils Percent Auto 1.2 % (0-4.4); Hematocrit 27.2 % (37.0-47.0); Hemoglobin 8.5 g/dL (12.0-15.0); Immature Granulocyte Absolute 0.07 K/mm3 (0.00-0.031); Immature Granulocyte Percent A 0.6 % (0-0.5); Immature Platelet Fraction Pct 1.3 % (0.9-11.2); Lymphocytes Absolute Auto 0.72 K/mm3 (0.9-3.2); Lymphocytes Percent Auto 5.9 % (18.3-44.2); Mean Corpuscular HGB Conc 31.3 g/dl (32-36); Mean Corpuscular Hemoglobin 29.4 pg (26-34); Mean Corpuscular Volume 94.1 fl (80-100); Mean Platelet Volume 9.5 fl (7.4-10.4); Monocytes Absolute Auto 1.2 K/mm3 (0.1-0.6); Monocytes Percent Auto 9.5 % (2.6-8.5); Neutrophils Percent Auto 82.4 % (45.5-73.1); Platelet Count Result 329 k/mm3 (150-375); Red Blood Count 2.89 M/mm3 (4.2-5.4); Red Cell Distribution Width 13.7 % (11.5-14.5); White Blood Count 12.1 K/mm3 (4.5-10.0)
[2023-05-26 10:40] LABS: Troponin I 0.052 ng/mL (0.000-0.034)
[2023-05-26 11:46] LABS: Glucose Point of Care 157 mg/dl (65-105)
[2023-05-26 16:27] LABS: Glucose Point of Care 138 mg/dl (65-105)
--- NOTE | 2023-05-26 18:28 | PM.IMHP ---
H&P: HPI History of Present Illness Date/Time: 05/26/23 18:28 Chief Complaint: Patient transferred from long term for evaluation of generalized weakness and altered mental state Narrative: She was noticed to be confused, feeling very weak and tired and was not acting herself. The nursing facility got concerned and sent her to the ER for evaluation. Workup was done which shows sepsis due to UTI. Patient received aggressive IV hydration and IV antibiotics. She also has the multiple sacral decubitus wounds on her buttocks which wound care consult ordered. She is being admitted for medical management, evaluation and further workup. Review of Systems Review of Systems: Unable to be obtained. Patient is pleasantly confused ROS unobtainable: Yes unobtainable due to medical condition and unobtainable due to mental status PMFSH Past Medical History Medical History Anxiety Arthritis B12 deficiency BPPV (benign paroxysmal positional vertigo) CAD (coronary artery disease) Chronic constipation Chronic hyponatremia Chronic lower back pain CKD (chronic kidney disease) stage 3, GFR 30-59 ml/min Closed fracture of right humerus (09/2019) Combined systolic and diastolic congestive heart failure Echocardiogram 01/2022: EF 35-40%, grade 1 diastolic dysfunction, technically difficult study COPD with asthma COVID-19 (~01/2022) Diabetic peripheral neuropathy Eczema Encounter for servicing of pacemaker at end of battery life Frequent UTI Gallstone pancreatitis (02/04/22) Gastric ulcer Resulting in GI bleed 01/2022 Gout Hyperlipidemia Hypertension IDDM (insulin dependent diabetes mellitus) Insomnia Ischemic cardiomyopathy Mitral regurgitation CONTRERAS (nonalcoholic steatohepatitis) Noted on ultrasound in 2011 NSTEMI (non-ST elevated myocardial infarction) Obstructive sleep apnea Mostly noncompliant with CPAP use Osteoarthritis Peripheral artery disease Portal vein thrombosis (01/2022) Not treated due to active GI bleed of the time Reflux esophagitis Seasonal allergies Type 2 diabetes mellitus Historically uncontrolled hemoglobin A1c 9% on 08/21/2022 Vitamin D deficiency Surgical History Surgical History Gastric bypass status for obesity (~2001) History of appendectomy History of implantable cardiac defibrillator (ICD) History of Abigail-en-Y gastric bypass 2001 per review of EMR by hospitalist; Patient states performed at [place] History of total hysterectomy with bilateral salpingo-oophorectomy (BSO) For benign disease History of ventral hernia repair Post-op changes noted on CT Hx of heart artery stent ICD (implantable cardioverter-defibrillator) in place (~2011) Status post panniculectomy Family History Family History Father Heart disease Acute myocardial infarction Arthritis Patient's father is Diabetes mellitus Mother Heart disease Acute myocardial infarction Arthritis Hypertension Diabetes mellitus CHF (congestive heart failure) Obesity Sibling Heart disease Obesity Sibling Family history of malignant neoplasm Social History Social History Social History: Lidia Ortega lives at her home in [place] with her son, Mak. she has another child also. She is retired. She is a former smoker and believes she quit approximately 13 years ago. 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 living in Code status: Full code Healthcare power of results engineer: Tasia Smoking packs per day: 1 Smoking cigarettes per day: 20.0 Years smoked: 50 Smoking pack-years: 50.00 Smoking status: Former smoker Second hand tobacco smoke exposure: No Alcohol intake: unknown Substance use: never Substance use type: does not use Do You Feel Safe in your
[2023-05-26] MEDS: ENOXAPARIN 30 MG/0.3 ML SYRINGE SUB-Q (19:25)
[2023-05-26] MEDS: ROSUVASTATIN 10 MG TABLET 20 MG PO (20:27)
[2023-05-26] MEDS: INSULIN GLARGINE (*BKC) 100 UNITS/ML 25 UNITS SUB-Q (20:46)
[2023-05-26 21:00] LABS: Glucose Point of Care 303 mg/dl (65-105)
[2023-05-26] MEDS: ALPRAZolam (*CRX) 0.25 MG TABLET PO (21:00)
[2023-05-26] MEDS: ACETAMINOPHEN 325 MG TABLET 650 MG PO (21:01)
[2023-05-27] VITALS (16 sets, daily range): BP systolic 102–132; BP diastolic 40–63; PULSE 57–75; RESP 18–20; TEMP 36.1–37; O2SAT 98–100
[2023-05-27] MEDS: CEFEPIME 1 GM/NS 50 ML 1 GM/50 ML BAG IVPB (01:09)
[2023-05-27 02:17] LABS: Basophils Absolute Auto 0.1 K/mm3 (0.0-0.1); Basophils Percent Auto 0.7 % (0.2-1.2); Eosinophils Absolute Auto 0.1 K/mm3 (0-0.3); Eosinophils Percent Auto 1.4 % (0-4.4); Hematocrit 28.9 % (37.0-47.0); Hemoglobin 8.6 g/dL (12.0-15.0); Immature Granulocyte Absolute 0.05 K/mm3 (0.00-0.031); Immature Granulocyte Percent A 0.5 % (0-0.5); Lymphocytes Absolute Auto 0.77 K/mm3 (0.9-3.2); Lymphocytes Percent Auto 8.4 % (18.3-44.2); Mean Corpuscular HGB Conc 29.8 g/dl (32-36); Mean Corpuscular Hemoglobin 28.6 pg (26-34); Mean Platelet Volume 8.7 fl (7.4-10.4); Monocytes Absolute Auto 0.9 K/mm3 (0.1-0.6); Monocytes Percent Auto 9.3 % (2.6-8.5); Neutrophils Absolute Auto 7.3 K/mm3 (1.3-6.7); Neutrophils Percent Auto 79.7 % (45.5-73.1); Platelet Count Result 268 k/mm3 (150-375); Red Blood Count 3.01 M/mm3 (4.2-5.4); Red Cell Distribution Width 13.6 % (11.5-14.5); White Blood Count 9.1 K/mm3 (4.5-10.0)
[2023-05-27 02:33] LABS: Anion Gap 8 mmol/L (8-16); Blood Urea Nitrogen 40 mg/dL (7-17); Calcium 8.3 mg/dL (8.4-10.2); Carbon Dioxide 15 mmol/L (22-30); Chloride 104 mmol/L (98-107); Estimated CRCL calculation 28 ml/min; Estimated Glomerular Filt Rate 43; Glucose 233 mg/dL (65-110); Magnesium 2.5 mg/dL (1.6-2.3); Phosphorus 3.3 mg/dL (2.5-4.5); Potassium 3.9 mmol/L (3.4-5.0); Sodium 127 mmol/L (137-145)
[2023-05-27 02:36] LABS: Vancomycin Trough 7.1 ug/mL (10.0-20.0)
[2023-05-27] MEDS: VANCOMYCIN 1,000 MG/NS 250 ML 1,000 MG/250 ML BAG 250 MG IVPB (03:40)
[2023-05-27 08:15] LABS: Glucose Point of Care 149 mg/dl (65-105)
[2023-05-27] MEDS: METOPROLOL SUCCINATE EXT REL 50 MG TABCR PO (08:44)
[2023-05-27] MEDS: lisinopriL 10 MG TABLET PO (08:45)
[2023-05-27] MEDS: ENOXAPARIN 30 MG/0.3 ML SYRINGE SUB-Q (08:45)
[2023-05-27] MEDS: SUCRALFATE 1 GM TABLET PO (08:45)
[2023-05-27] MEDS: ASPIRIN 81 MG CHEWABLE TABLET PO (08:45)
[2023-05-27] MEDS: CYANOCOBALAMIN 500 MCG TABLET PO (08:45)
[2023-05-27] MEDS: DOCUSATE SODIUM 100 MG CAPSULE PO ×2 (08:49→16:57)
--- NOTE | 2023-05-27 09:10 | P.CDI_ITS ---
DX: Mild-Moderate protein calorie malnutrition. CDI Query Clarification Request BMI 25.0 Nutritional diagnostic Statement Severe protein calorie malnutrition related to inadequate energy intake and reduced appetite as evidenced by pt report, noted significant weight loss of - 19% x 3 months, and NFPE findings for moderate subcutaneous fat loss and moderate muscle wasting. Increased nutrient needs related to altered skin integrity as evidenced by pressure injuries. Please refer to the comprehensive nutrition assessment for further information. Please clarify severity of protein calorie malnutrition if known: * Mild * Moderate * Severe * Other/ Unspecified
[2023-05-27] MEDS: INSULIN ASPART (*BKC) 100 UNITS/ML 10 UNITS SUB-Q ×2 (09:24→13:20)
[2023-05-27] MEDS: SPIRONOLACTONE 25 MG TABLET PO (09:28)
[2023-05-27 10:17] LABS: Troponin I 0.025 ng/mL (0.000-0.034)
[2023-05-27 12:31] LABS: Glucose Point of Care 252 mg/dl (65-105)
[2023-05-27] MEDS: INSULIN ASPART (*BKC) 100 UNITS/ML SUB-Q (13:22)
--- NOTE | 2023-05-27 14:28 | PC.NURSE ---
This nurse was summoned to the pts room per pts son. The pts' son voiced concern of the pt having wounds to her toes per report of his sister. Education on the pts current wounds as noted upon admission to the facility from the [place]. The pt bilateral socks were removed et the pt was able to view the pts with no wounds or redness noted to the pts toes bilateral feet. The pt son questioned braces on the pts BLE. Education was given they are not braces but waffle boots to elevated her feet off of the bed. The pts son wanted to take pictures of the waffle boots. This RN informed not to include this RN in image. Per the pt son the pt is c/o a upset stomach inspite of the pt denying distress on rounding. Will give PRN intervention to the pt. No further concerns voiced at the time of exit from the pts room.
--- NOTE | 2023-05-27 15:00 | PC.NURSE ---
1314 Dr. Griffith given report on B/P trend et the pt consuming large volumes of water during the shift Na level reviewed. T.O.R.B. Dr. Griffith /Prisca RN 1000 ml Fluid restriction for 24 hours. The pt has been given education on new interventions in place
[2023-05-27] MEDS: ONDANSETRON INJ 4 MG/2 ML VIAL IV PUSH (15:08)
[2023-05-27] MEDS: MAG HYDROX/AL HYDROX/SIMETH 30 ML UDC PO (15:08)
[2023-05-27 17:12] LABS: Glucose Point of Care 44 mg/dl (65-105)
[2023-05-27 17:12] LABS: Glucose Point of Care 41 mg/dl (65-105)
[2023-05-27] MEDS: DEXTROSE 50% 25 GM/50 ML SYRINGE IV PUSH (17:12)
[2023-05-27 17:39] LABS: Glucose Point of Care 124 mg/dl (65-105)
[2023-05-27 17:39] LABS: Glucose Point of Care 176 mg/dl (65-105)
[2023-05-27 19:16] LABS: Glucose Point of Care 86 mg/dl (65-105)
[2023-05-27 20:35] LABS: Glucose Point of Care 108 mg/dl (65-105)
[2023-05-27] MEDS: ROSUVASTATIN 10 MG TABLET 20 MG PO (20:38)
[2023-05-28] VITALS (12 sets, daily range): BP systolic 121–143; BP diastolic 42–54; PULSE 65–99; RESP 16–24; TEMP 36.4–37.1; O2SAT 94–99
[2023-05-28] MEDS: CEFEPIME 1 GM/NS 50 ML 1 GM/50 ML BAG IVPB (01:18)
[2023-05-28 01:30] LABS: Glucose Point of Care 123 mg/dl (65-105)
[2023-05-28 05:07] LABS: Basophils Absolute Auto 0.1 K/mm3 (0.0-0.1); Basophils Percent Auto 0.4 % (0.2-1.2); Eosinophils Absolute Auto 0.2 K/mm3 (0-0.3); Eosinophils Percent Auto 1.3 % (0-4.4); Hematocrit 28.9 % (37.0-47.0); Hemoglobin 8.6 g/dL (12.0-15.0); Immature Granulocyte Absolute 0.07 K/mm3 (0.00-0.031); Immature Granulocyte Percent A 0.6 % (0-0.5); Lymphocytes Absolute Auto 0.68 K/mm3 (0.9-3.2); Lymphocytes Percent Auto 5.7 % (18.3-44.2); Mean Corpuscular HGB Conc 29.8 g/dl (32-36); Mean Corpuscular Hemoglobin 28.5 pg (26-34); Mean Corpuscular Volume 95.7 fl (80-100); Mean Platelet Volume 8.7 fl (7.4-10.4); Monocytes Absolute Auto 1.1 K/mm3 (0.1-0.6); Monocytes Percent Auto 9.3 % (2.6-8.5); Neutrophils Absolute Auto 9.9 K/mm3 (1.3-6.7); Neutrophils Percent Auto 82.7 % (45.5-73.1); Platelet Count Result 331 k/mm3 (150-375); Red Blood Count 3.02 M/mm3 (4.2-5.4); Red Cell Distribution Width 13.8 % (11.5-14.5)
[2023-05-28 05:35] LABS: Anion Gap 6 mmol/L (8-16); Blood Urea Nitrogen 25 mg/dL (7-17); Calcium 8.6 mg/dL (8.4-10.2); Carbon Dioxide 20 mmol/L (22-30); Chloride 105 mmol/L (98-107); Estimated CRCL calculation 33 ml/min; Estimated Glomerular Filt Rate 53; Glucose 107 mg/dL (65-110); Potassium 4.2 mmol/L (3.4-5.0); Sodium 131 mmol/L (137-145)
[2023-05-28 07:37] LABS: Glucose Point of Care 111 mg/dl (65-105)
[2023-05-28] MEDS: METOPROLOL SUCCINATE EXT REL 50 MG TABCR PO (08:50)
[2023-05-28] MEDS: CYANOCOBALAMIN 500 MCG TABLET PO (08:50)
[2023-05-28] MEDS: SPIRONOLACTONE 25 MG TABLET PO (08:50)
[2023-05-28] MEDS: ENOXAPARIN 30 MG/0.3 ML SYRINGE SUB-Q (08:51)
[2023-05-28] MEDS: SUCRALFATE 1 GM TABLET PO (08:51)
[2023-05-28] MEDS: lisinopriL 10 MG TABLET PO (08:51)
[2023-05-28] MEDS: ASPIRIN 81 MG CHEWABLE TABLET PO (08:51)
[2023-05-28] MEDS: FERROUS SULFATE 325 MG TABLET DR PO ×2 (08:51→18:07)
[2023-05-28] MEDS: DOCUSATE SODIUM 100 MG CAPSULE PO ×2 (08:51→18:07)
[2023-05-28] MEDS: ONDANSETRON INJ 4 MG/2 ML VIAL IV PUSH (09:07)
[2023-05-28 11:59] LABS: Glucose Point of Care 222 mg/dl (65-105)
[2023-05-28] MEDS: INSULIN ASPART (*BKC) 100 UNITS/ML SUB-Q (12:12)
--- NOTE | 2023-05-28 13:12 | PCOTNOTE ---
Attempted OT evaluation. Pt. refused stating she was too tired and did not want to get out of bed. Will attempt again as able.
--- NOTE | 2023-05-28 13:44 | PCPTNOTE ---
Attempted to see for physical therapy evaluation, pt refused stating she was tired. RN notified, will continue to follow.
--- NOTE | 2023-05-28 15:57 | PC.NURSE ---
This patient, Lidia Ortega, was transferred to [ 302] on 05/28/23 at 1557. Personal belongings sent with patient. Report given to [Mony MALAGON ]. Appropriate documentation sent with patient. Son, EDVIN, notifed
--- NOTE | 2023-05-28 16:20 | PC.NURSE ---
This patient, Lidia Ortega, was received from IMU on 05/28/23 at 1550. Report received from Ginny MALAGON. Patient/family oriented to unit policies and routines
--- NOTE | 2023-05-28 16:35 | PM.IMPN ---
Progress Note: A&P Assessment and Plan (1) Sepsis secondary to UTI: Code(s): A41.9 - Sepsis, unspecified organism; N39.0 - Urinary tract infection, site not specified Status: Acute (2) Decubitus ulcer of sacral area: Code(s): L89.159 - Pressure ulcer of sacral region, unspecified stage Status: Acute (3) Acute kidney injury: Code(s): N17.9 - Acute kidney failure, unspecified Status: Acute (4) Elevated troponin: Code(s): R79.89 - Other specified abnormal findings of blood chemistry Status: Acute (5) Gait abnormality: Code(s): R26.9 - Unspecified abnormalities of gait and mobility Status: Acute (6) Type 2 diabetes mellitus with hyperglycemia: Code(s): E11.65 - Type 2 diabetes mellitus with hyperglycemia Status: Acute (7) Systolic and diastolic CHF, acute on chronic: Code(s): I50.43 - Acute on chronic combined systolic (congestive) and diastolic (congestive) heart failure Status: Acute (8) Weakness: Code(s): R53.1 - Weakness Status: Acute (9) Hemorrhoids: Qualifiers: Hemorrhoid type: unspecified Qualified Code(s): K64.9 - Unspecified hemorrhoids Code(s): K64.9 - Unspecified hemorrhoids Status: Acute (10) Anxiety and depression: Code(s): F41.9 - Anxiety disorder, unspecified; F32.A - Depression, unspecified Status: Acute (11) Pressure ulcer: Qualifiers: Pressure injury location: sacral region Pressure injury stage: stage 2 Qualified Code(s): L89.152 - Pressure ulcer of sacral region, stage 2 Code(s): L89.90 - Pressure ulcer of unspecified site, unspecified stage Status: Acute (12) Mitral regurgitation: Code(s): I34.0 - Nonrheumatic mitral (valve) insufficiency Status: Acute (13) Ischemic cardiomyopathy: Code(s): I25.5 - Ischemic cardiomyopathy Status: Acute (14) Peptic ulcer: Code(s): K27.9 - Peptic ulcer, site unspecified, unspecified as acute or chronic, without hemorrhage or perforation Status: Acute (15) 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, not elsewhere classified Status: Acute (16) Combined systolic and diastolic congestive heart failure: Qualifiers: Heart failure chronicity: chronic Qualified Code(s): I50.42 - Chronic combined systolic (congestive) and diastolic (congestive) heart failure Code(s): I50.40 - Unspecified combined systolic (congestive) and diastolic (congestive) heart failure Status: Chronic (17) Uncontrolled type 2 diabetes mellitus with hyperglycemia, with long-term current use of insulin: Code(s): E11.65 - Type 2 diabetes mellitus with hyperglycemia; Z79.4 - intermediate (current) use of insulin Status: Chronic (18) ICD (implantable cardioverter-defibrillator) in place: Onset Date: ~2011 Code(s): Z95.810 - Presence of automatic (implantable) cardiac defibrillator Status: Chronic (19) Vitamin D deficiency: Code(s): E55.9 - Vitamin D deficiency, unspecified Status: Acute (20) Recurrent UTI: Code(s): N39.0 - Urinary tract infection, site not specified Status: Acute (21) Constipation: Qualifiers: Constipation type: unspecified constipation type Qualified Code(s): K59.00 - Constipation, unspecified Code(s): K59.00 - Constipation, unspecified Status: Acute (22) Osteoarthritis: Code(s): M19.90 - Unspecified osteoarthritis, unspecified site Status: Acute (23) Hypertension: Qualifiers: Hypertension type: essential hypertension Qualified Code(s): I10 - Essential (primary) hypertension Code(s): I10 - Essential (primary) hypertension Status: Chronic (24) Hyperlipidemia: Qualifiers: Hyperlipidemia type: other hyperlipidemia Qualified Code(s): E78.49 - Other hyperlipidemia Code(s): E78.5 - Hyperlip
[2023-05-28 16:55] LABS: Glucose Point of Care 177 mg/dl (65-105)
[2023-05-28] MEDS: VANCOMYCIN 1,000 MG/NS 250 ML 1,000 MG/250 ML BAG 250 MG IVPB (18:06)
[2023-05-28] MEDS: ROSUVASTATIN 10 MG TABLET 20 MG PO (20:42)
[2023-05-28] MEDS: ALPRAZolam (*CRX) 0.25 MG TABLET PO (20:42)
[2023-05-28 21:35] LABS: Glucose Point of Care 155 mg/dl (65-105)
[2023-05-29] MEDS: CEFEPIME 1 GM/NS 50 ML 1 GM/50 ML BAG IVPB (01:26)
[2023-05-29 04:40] VITALS: BP 116/46; PULSE 67; RESP 20; TEMP 36.4; O2SAT 93
[2023-05-29 06:29] LABS: Basophils Absolute Auto 0.1 K/mm3 (0.0-0.1); Basophils Percent Auto 0.5 % (0.2-1.2); Eosinophils Absolute Auto 0.1 K/mm3 (0-0.3); Eosinophils Percent Auto 1.3 % (0-4.4); Hematocrit 26.3 % (37.0-47.0); Hemoglobin 7.9 g/dL (12.0-15.0); Immature Granulocyte Absolute 0.08 K/mm3 (0.00-0.031); Immature Granulocyte Percent A 0.7 % (0-0.5); Lymphocytes Absolute Auto 0.94 K/mm3 (0.9-3.2); Lymphocytes Percent Auto 8.4 % (18.3-44.2); Mean Corpuscular Hemoglobin 27.8 pg (26-34); Mean Corpuscular Volume 92.6 fl (80-100); Mean Platelet Volume 8.8 fl (7.4-10.4); Monocytes Absolute Auto 1.3 K/mm3 (0.1-0.6); Monocytes Percent Auto 11.3 % (2.6-8.5); Neutrophils Absolute Auto 8.7 K/mm3 (1.3-6.7); Neutrophils Percent Auto 77.8 % (45.5-73.1); Platelet Count Result 351 k/mm3 (150-375); Red Blood Count 2.84 M/mm3 (4.2-5.4); Red Cell Distribution Width 13.6 % (11.5-14.5); White Blood Count 11.2 K/mm3 (4.5-10.0)
[2023-05-29 06:39] LABS: Anion Gap 6 mmol/L (8-16); Blood Urea Nitrogen 26 mg/dL (7-17); Calcium 8.3 mg/dL (8.4-10.2); Carbon Dioxide 21 mmol/L (22-30); Chloride 101 mmol/L (98-107); Estimated CRCL calculation 30 ml/min; Estimated Glomerular Filt Rate 48; Glucose 135 mg/dL (65-110); Potassium 4.2 mmol/L (3.4-5.0); Sodium 128 mmol/L (137-145)
[2023-05-29 08:12] LABS: Glucose Point of Care 130 mg/dl (65-105)
[2023-05-29 09:16] VITALS: BP 100/48; PULSE 66; RESP 16; TEMP 36.2; O2SAT 98
[2023-05-29] MEDS: SUCRALFATE 1 GM TABLET PO (09:23)
[2023-05-29] MEDS: DOCUSATE SODIUM 100 MG CAPSULE PO ×2 (09:23→17:11)
[2023-05-29] MEDS: FERROUS SULFATE 325 MG TABLET DR PO (09:23)
[2023-05-29] MEDS: CYANOCOBALAMIN 500 MCG TABLET PO (09:23)
[2023-05-29] MEDS: ASPIRIN 81 MG CHEWABLE TABLET PO (09:23)
[2023-05-29] MEDS: SPIRONOLACTONE 25 MG TABLET PO (09:23)
[2023-05-29 09:24] VITALS: PULSE 70
[2023-05-29] MEDS: SODIUM CHLORIDE 0.9% IV 1,000 ML 75 ML IV CONT (09:24)
[2023-05-29] MEDS: ENOXAPARIN 40 MG/0.4 ML SYRINGE SUB-Q (09:26)
--- NOTE | 2023-05-29 10:12 | PCOTNOTE ---
Attempted OT evaluation; pt. refused. Will attempt again as able
--- NOTE | 2023-05-29 10:59 | PCPTNOTE ---
Attempted to see for physical therapy evaluation, pt adamantly refused. Offered to check back in later and pt states no . RN notified, will continue to follow.
[2023-05-29 12:33] LABS: Glucose Point of Care 142 mg/dl (65-105)
--- NOTE | 2023-05-29 15:37 | P.PNIM_ITS ---
Progress Note: A&P Assessment and Plan (1) Sepsis secondary to UTI: Code(s): A41.9 - Sepsis, unspecified organism; N39.0 - Urinary tract infection, site not specified Status: Acute (2) Decubitus ulcer of sacral area: Code(s): L89.159 - Pressure ulcer of sacral region, unspecified stage Status: Acute (3) Acute kidney injury: Code(s): N17.9 - Acute kidney failure, unspecified Status: Acute (4) Elevated troponin: Code(s): R79.89 - Other specified abnormal findings of blood chemistry Status: Acute (5) Gait abnormality: Code(s): R26.9 - Unspecified abnormalities of gait and mobility Status: Acute (6) Type 2 diabetes mellitus with hyperglycemia: Code(s): E11.65 - Type 2 diabetes mellitus with hyperglycemia Status: Acute (7) Systolic and diastolic CHF, acute on chronic: Code(s): I50.43 - Acute on chronic combined systolic (congestive) and diastolic (congestive) heart failure Status: Acute (8) Weakness: Code(s): R53.1 - Weakness Status: Acute (9) Hemorrhoids: Qualifiers: Hemorrhoid type: unspecified Qualified Code(s): K64.9 - Unspecified hemorrhoids Code(s): K64.9 - Unspecified hemorrhoids Status: Acute (10) Anxiety and depression: Code(s): F41.9 - Anxiety disorder, unspecified; F32.A - Depression, unspecified Status: Acute (11) Pressure ulcer: Qualifiers: Pressure injury location: sacral region Pressure injury stage: stage 2 Qualified Code(s): L89.152 - Pressure ulcer of sacral region, stage 2 Code(s): L89.90 - Pressure ulcer of unspecified site, unspecified stage Status: Acute (12) Mitral regurgitation: Code(s): I34.0 - Nonrheumatic mitral (valve) insufficiency Status: Acute (13) Ischemic cardiomyopathy: Code(s): I25.5 - Ischemic cardiomyopathy Status: Acute (14) Peptic ulcer: Code(s): K27.9 - Peptic ulcer, site unspecified, unspecified as acute or chronic, without hemorrhage or perforation Status: Acute (15) 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, not elsewhere classified Status: Acute (16) Combined systolic and diastolic congestive heart failure: Qualifiers: Heart failure chronicity: chronic Qualified Code(s): I50.42 - Chronic combined systolic (congestive) and diastolic (congestive) heart failure Code(s): I50.40 - Unspecified combined systolic (congestive) and diastolic (congestive) heart failure Status: Chronic (17) Uncontrolled type 2 diabetes mellitus with hyperglycemia, with long-term current use of insulin: Code(s): E11.65 - Type 2 diabetes mellitus with hyperglycemia; Z79.4 - group home (current) use of insulin Status: Chronic (18) ICD (implantable cardioverter-defibrillator) in place: Onset Date: ~2011 Code(s): Z95.810 - Presence of automatic (implantable) cardiac defibrillator Status: Chronic (19) Vitamin D deficiency: Code(s): E55.9 - Vitamin D deficiency, unspecified Status: Acute (20) Recurrent UTI: Code(s): N39.0 - Urinary tract infection, site not specified Status: Acute (21) Constipation: Qualifiers: Constipation type: unspecified constipation type Qualified Code(s): K59.00 - Constipation, unspecified Code(s): K59.00 - Constipation, unspecified Status: Acute (22) Osteoarthritis: Code(s): M19.90 - Unspecified osteoarthritis, unspecified site
[2023-05-29 15:59] VITALS: BP 116/46; PULSE 63; RESP 18; TEMP 36.2; O2SAT 99
[2023-05-29 16:49] LABS: Glucose Point of Care 259 mg/dl (65-105)
[2023-05-29] MEDS: INSULIN ASPART (*BKC) 100 UNITS/ML SUB-Q (17:11)
[2023-05-29 20:30] VITALS: BP 143/56; PULSE 73; RESP 16; TEMP 36.8; O2SAT 98
[2023-05-29] MEDS: INSULIN GLARGINE (*BKC) 100 UNITS/ML 25 UNITS SUB-Q (20:40)
[2023-05-29] MEDS: ROSUVASTATIN 10 MG TABLET 20 MG PO (20:40)
[2023-05-29 21:24] LABS: Glucose Point of Care 216 mg/dl (65-105)
[2023-05-30] MEDS: CEFEPIME 1 GM/NS 50 ML 1 GM/50 ML BAG IVPB (00:58)
[2023-05-30 03:54] LABS: Basophils Absolute Auto 0.1 K/mm3 (0.0-0.1); Basophils Percent Auto 0.6 % (0.2-1.2); Eosinophils Absolute Auto 0.2 K/mm3 (0-0.3); Eosinophils Percent Auto 1.5 % (0-4.4); Hemoglobin 8.1 g/dL (12.0-15.0); Immature Granulocyte Absolute 0.07 K/mm3 (0.00-0.031); Immature Granulocyte Percent A 0.6 % (0-0.5); Lymphocytes Absolute Auto 1.02 K/mm3 (0.9-3.2); Lymphocytes Percent Auto 9.3 % (18.3-44.2); Mean Corpuscular HGB Conc 31.2 g/dl (32-36); Mean Corpuscular Hemoglobin 28.6 pg (26-34); Mean Corpuscular Volume 91.9 fl (80-100); Mean Platelet Volume 8.2 fl (7.4-10.4); Monocytes Absolute Auto 1.2 K/mm3 (0.1-0.6); Monocytes Percent Auto 10.7 % (2.6-8.5); Neutrophils Absolute Auto 8.5 K/mm3 (1.3-6.7); Neutrophils Percent Auto 77.3 % (45.5-73.1); Platelet Count Result 357 k/mm3 (150-375); Red Blood Count 2.83 M/mm3 (4.2-5.4); Red Cell Distribution Width 13.7 % (11.5-14.5)
[2023-05-30 04:04] LABS: Anion Gap 6 mmol/L (8-16); Blood Urea Nitrogen 32 mg/dL (7-17); Calcium 8.7 mg/dL (8.4-10.2); Carbon Dioxide 21 mmol/L (22-30); Chloride 103 mmol/L (98-107); Estimated CRCL calculation 30 ml/min; Estimated Glomerular Filt Rate 48; Glucose 155 mg/dL (65-110); Potassium 4.1 mmol/L (3.4-5.0); Sodium 130 mmol/L (137-145)
[2023-05-30 04:06] LABS: Vancomycin Trough 9.7 ug/mL (10.0-20.0)
[2023-05-30] MEDS: VANCOMYCIN 1,000 MG/NS 250 ML 1,000 MG/250 ML BAG 250 MG IVPB (04:27)
[2023-05-30 05:10] VITALS: BP 129/54; PULSE 67; RESP 20; TEMP 36.3; O2SAT 97
[2023-05-30 07:38] LABS: Glucose Point of Care 134 mg/dl (65-105)
[2023-05-30] MEDS: ASPIRIN 81 MG CHEWABLE TABLET PO (08:33)
[2023-05-30] MEDS: DOCUSATE SODIUM 100 MG CAPSULE PO ×2 (08:33→16:55)
[2023-05-30] MEDS: CYANOCOBALAMIN 500 MCG TABLET PO (08:33)
[2023-05-30] MEDS: SUCRALFATE 1 GM TABLET PO (08:33)
[2023-05-30] MEDS: FERROUS SULFATE 325 MG TABLET DR PO ×2 (08:33→16:55)
[2023-05-30] MEDS: SPIRONOLACTONE 25 MG TABLET PO (08:33)
[2023-05-30] MEDS: lisinopriL 10 MG TABLET PO (08:33)
[2023-05-30] MEDS: METOPROLOL SUCCINATE EXT REL 50 MG TABCR PO (08:33)
[2023-05-30] MEDS: ENOXAPARIN 40 MG/0.4 ML SYRINGE SUB-Q (08:34)
[2023-05-30] MEDS: ERGOCALCIFEROL 50,000 UNITS CAPSULE 50000 UNITS PO (08:35)
--- NOTE | 2023-05-30 09:05 | PM.IMPN ---
Progress Note: A&P Assessment and Plan (1) Sepsis secondary to UTI: Code(s): A41.9 - Sepsis, unspecified organism; N39.0 - Urinary tract infection, site not specified Status: Acute Assessment and Plan: Treated with IV antibiotics continue current treatment follow final culture results (2) Sepsis: Code(s): A41.9 - Sepsis, unspecified organism Status: Acute Assessment and Plan: Status post IV hydration IV antibiotics (3) Decubitus ulcer of sacral area: Code(s): L89.159 - Pressure ulcer of sacral region, unspecified stage Status: Acute Assessment and Plan: Wound care was consulted (4) Acute kidney injury: Code(s): N17.9 - Acute kidney failure, unspecified Status: Acute Assessment and Plan: Treated with IV hydration improved follow CMP (5) Gait abnormality: Code(s): R26.9 - Unspecified abnormalities of gait and mobility Status: Acute Assessment and Plan: PT OT evaluation patient came from [facility] (6) Elevated troponin: Code(s): R79.89 - Other specified abnormal findings of blood chemistry Status: Acute Assessment and Plan: Probably related to demand ischemia secondary to above monitor (7) Diabetes mellitus: Code(s): E11.9 - Type 2 diabetes mellitus without complications Status: Acute Assessment and Plan: Continue current treatment insulin sliding scale (8) Combined systolic and diastolic congestive heart failure: Qualifiers: Heart failure chronicity: chronic Qualified Code(s): I50.42 - Chronic combined systolic (congestive) and diastolic (congestive) heart failure Code(s): I50.40 - Unspecified combined systolic (congestive) and diastolic (congestive) heart failure Status: Chronic Assessment and Plan: Will give gentle diuresis probably acute exacerbation (9) ICD (implantable cardioverter-defibrillator) in place: Onset Date: ~2011 Code(s): Z95.810 - Presence of automatic (implantable) cardiac defibrillator Status: Chronic Assessment and Plan: Monitor (10) Hypertension: Qualifiers: Hypertension type: essential hypertension Qualified Code(s): I10 - Essential (primary) hypertension Code(s): I10 - Essential (primary) hypertension Status: Chronic Assessment and Plan: Continue current treatment (11) CAD (coronary artery disease): Qualifiers: Coronary Disease-Associated Artery/Lesion type: [place] artery [place] vs. transplanted heart: [place] heart Associated angina: without angina Qualified Code(s): I25.10 - Atherosclerotic heart disease of [place] coronary artery without angina pectoris Code(s): I25.10 - Atherosclerotic heart disease of [place] coronary artery without angina pectoris Status: Chronic Assessment and Plan: Stable Subjective Date/time seen: 05/30/23 09:05 Interval history: Patient seen and examined Patient still have generalized weakness been treated for sepsis UTI Discussed with the nurse patient swallowing okay will continue to monitor to rule out aspiration Patient denies fever headache chest pain shortness of breath I am seeing the patient for UTI Exam Narrative: Alert Sitting in chair Chest no wheeze crackles Abdomen nontender nondistended CVS S1 + S2 No significant lower extremity edema Objective Data Vital Signs Vital Signs: Vital Signs - 24 hr 05/29/23 09:16 05/29/23 09:24 05/29/23 09:20 Temperature 97.2 F L Pulse Rate 66 70 Respiratory Rate 16 Blood Pressure 100/48 L Pulse Oximetry 98 Oxygen Delivery Room Air 05/29/23 15:59 05/29/23 20:30 05/29/23 20:00 Temperature 97.2 F L 98.3 F Pulse Rate 63 73 Respiratory Rate 18 16 Blood Pressure 116/46 L 143/56 H Pulse Oximetry 99 98 Oxygen Delivery Room Air 05/30/23 05:10 05/30/23 08:13 Temperature 97.3 F L Pulse Rate 67 Respiratory Rate 20 Blo
[2023-05-30 11:45] LABS: Glucose Point of Care 195 mg/dl (65-105)
[2023-05-30] MEDS: INSULIN ASPART (*BKC) 100 UNITS/ML SUB-Q (12:53)
[2023-05-30] MEDS: AMOXICILLIN 500 MG CAPSULE PO ×2 (14:25→20:51)
[2023-05-30] MEDS: FUROSEMIDE INJ 40 MG/4 ML VIAL IV PUSH (14:25)
[2023-05-30 15:39] VITALS: BP 102/52; PULSE 68; RESP 18; TEMP 36.2; O2SAT 99
[2023-05-30 16:21] LABS: Glucose Point of Care 172 mg/dl (65-105)
[2023-05-30 20:25] VITALS: BP 152/53; PULSE 75; RESP 20; TEMP 36.8; O2SAT 97
[2023-05-30] MEDS: ROSUVASTATIN 10 MG TABLET 20 MG PO (20:51)
[2023-05-30] MEDS: QUEtiapine FUMARATE 12.5 MG TABLET PO (20:51)
[2023-05-30] MEDS: INSULIN GLARGINE (*BKC) 100 UNITS/ML 25 UNITS SUB-Q (20:51)
[2023-05-30 21:41] LABS: Glucose Point of Care 207 mg/dl (65-105)
[2023-05-31] MEDS: AMOXICILLIN 500 MG CAPSULE PO ×3 (04:32→21:02)
[2023-05-31 04:35] VITALS: BP 111/50; PULSE 75; RESP 20; TEMP 35.9; O2SAT 97
[2023-05-31 07:09] LABS: Basophils Absolute Auto 0.1 K/mm3 (0.0-0.1); Basophils Percent Auto 0.6 % (0.2-1.2); Eosinophils Absolute Auto 0.2 K/mm3 (0-0.3); Eosinophils Percent Auto 1.5 % (0-4.4); Hematocrit 27.6 % (37.0-47.0); Hemoglobin 8.6 g/dL (12.0-15.0); Immature Granulocyte Percent A 0.9 % (0-0.5); Lymphocytes Absolute Auto 1.13 K/mm3 (0.9-3.2); Lymphocytes Percent Auto 9.9 % (18.3-44.2); Mean Corpuscular HGB Conc 31.2 g/dl (32-36); Mean Corpuscular Hemoglobin 28.6 pg (26-34); Mean Corpuscular Volume 91.7 fl (80-100); Mean Platelet Volume 8.7 fl (7.4-10.4); Monocytes Absolute Auto 1.4 K/mm3 (0.1-0.6); Monocytes Percent Auto 11.8 % (2.6-8.5); Neutrophils Absolute Auto 8.6 K/mm3 (1.3-6.7); Neutrophils Percent Auto 75.3 % (45.5-73.1); Platelet Count Result 428 k/mm3 (150-375); Red Blood Count 3.01 M/mm3 (4.2-5.4); Red Cell Distribution Width 13.5 % (11.5-14.5); White Blood Count 11.4 K/mm3 (4.5-10.0)
[2023-05-31 07:25] LABS: Anion Gap 6 mmol/L (8-16); Blood Urea Nitrogen 39 mg/dL (7-17); Calcium 8.8 mg/dL (8.4-10.2); Carbon Dioxide 24 mmol/L (22-30); Chloride 99 mmol/L (98-107); Estimated CRCL calculation 28 ml/min; Estimated Glomerular Filt Rate 43; Glucose 133 mg/dL (65-110); Potassium 3.7 mmol/L (3.4-5.0); Sodium 129 mmol/L (137-145)
[2023-05-31 08:00] VITALS: BP 84/50; PULSE 76; RESP 14; TEMP 36.4; O2SAT 100
[2023-05-31 08:13] LABS: Glucose Point of Care 116 mg/dl (65-105)
--- NOTE | 2023-05-31 08:46 | PM.IMPN ---
Progress Note: A&P Assessment and Plan (1) Sepsis secondary to UTI: Code(s): A41.9 - Sepsis, unspecified organism; N39.0 - Urinary tract infection, site not specified Status: Acute Assessment and Plan: Patient was switched to oral amoxicillin last dose on 06/06/2023 starting today (2) Sepsis: Code(s): A41.9 - Sepsis, unspecified organism Status: Acute Assessment and Plan: Status post IV hydration IV antibiotics concern oral antibiotics improved (3) Decubitus ulcer of sacral area: Code(s): L89.159 - Pressure ulcer of sacral region, unspecified stage Status: Acute Assessment and Plan: Wound care was consulted follow-up with wound care as outpatient (4) Acute kidney injury: Code(s): N17.9 - Acute kidney failure, unspecified Status: Acute Assessment and Plan: Treated with IV hydration improved follow CMP DC IV fluid as patient has sign of fluid overload started on IV Lasix (5) Gait abnormality: Code(s): R26.9 - Unspecified abnormalities of gait and mobility Status: Acute Assessment and Plan: PT OT evaluation patient came from [facility] (6) Elevated troponin: Code(s): R79.89 - Other specified abnormal findings of blood chemistry Status: Acute Assessment and Plan: Probably related to demand ischemia secondary to above monitor (7) Diabetes mellitus: Code(s): E11.9 - Type 2 diabetes mellitus without complications Status: Acute Assessment and Plan: Continue current treatment insulin sliding scale (8) Combined systolic and diastolic congestive heart failure: Qualifiers: Heart failure chronicity: chronic Qualified Code(s): I50.42 - Chronic combined systolic (congestive) and diastolic (congestive) heart failure Code(s): I50.40 - Unspecified combined systolic (congestive) and diastolic (congestive) heart failure Status: Chronic Assessment and Plan: Acute and of chronic was combined systolic and diastolic CHF exacerbation developed in hospitalization continue IV Lasix (9) ICD (implantable cardioverter-defibrillator) in place: Onset Date: ~2011 Code(s): Z95.810 - Presence of automatic (implantable) cardiac defibrillator Status: Chronic Assessment and Plan: Monitor (10) Hypertension: Qualifiers: Hypertension type: essential hypertension Qualified Code(s): I10 - Essential (primary) hypertension Code(s): I10 - Essential (primary) hypertension Status: Chronic Assessment and Plan: Continue current treatment (11) CAD (coronary artery disease): Qualifiers: Coronary Disease-Associated Artery/Lesion type: [place] artery [place] vs. transplanted heart: [place] heart Associated angina: without angina Qualified Code(s): I25.10 - Atherosclerotic heart disease of [place] coronary artery without angina pectoris Code(s): I25.10 - Atherosclerotic heart disease of [place] coronary artery without angina pectoris Status: Chronic Assessment and Plan: Stable Anticipate discharge in 1-2 days to acute rehab Subjective Date/time seen: 05/31/23 08:46 Interval history: Patient seen and examined Patient still have generalized weakness been treated for sepsis UTI better Patient denies fever headache chest pain shortness of breath I am seeing the patient for UTI Exam Narrative: Alert Chest no wheeze crackles Abdomen nontender nondistended CVS S1 + S2 Lower extremity edema has improved Objective Data Vital Signs Vital Signs: Vital Signs - 24 hr 05/30/23 15:39 05/30/23 20:00 05/30/23 20:25 Temperature 97.1 F L 98.3 F Pulse Rate 68 75 Respiratory Rate 18 20 Blood Pressure 102/52 L 152/53 H Pulse Oximetry 99 97 Oxygen Delivery Room Air 05/31/23 04:35 Temperature 96.7 F L Pulse Rate 75 Respiratory Rate 20 Blood Pressure 111/50 L Pulse Oximetry 97 Oxygen Delivery
[2023-05-31] MEDS: FERROUS SULFATE 325 MG TABLET DR PO ×2 (09:17→17:57)
[2023-05-31] MEDS: SUCRALFATE 1 GM TABLET PO (09:17)
[2023-05-31] MEDS: SPIRONOLACTONE 25 MG TABLET PO (09:17)
[2023-05-31] MEDS: DOCUSATE SODIUM 100 MG CAPSULE PO ×2 (09:17→17:57)
[2023-05-31] MEDS: lisinopriL 10 MG TABLET PO (09:17)
[2023-05-31] MEDS: QUEtiapine FUMARATE 12.5 MG TABLET PO ×2 (09:17→21:02)
[2023-05-31] MEDS: CYANOCOBALAMIN 500 MCG TABLET PO (09:17)
[2023-05-31] MEDS: METOPROLOL SUCCINATE EXT REL 50 MG TABCR PO (09:17)
[2023-05-31] MEDS: ASPIRIN 81 MG CHEWABLE TABLET PO (09:17)
[2023-05-31] MEDS: ENOXAPARIN 40 MG/0.4 ML SYRINGE SUB-Q (09:18)
[2023-05-31] MEDS: INSULIN ASPART (*BKC) 100 UNITS/ML SUB-Q ×2 (09:18→17:57)
[2023-05-31] MEDS: FUROSEMIDE INJ 40 MG/4 ML VIAL IV PUSH (09:18)
[2023-05-31 11:14] VITALS: BP 110/58
--- NOTE | 2023-05-31 11:29 | PCNFU ---
Nutrition Follow-Up Complete: Severe protein calorie malnutrition related to inadequate energy intake and reduced appetite as evidenced by pt report, noted significant weight loss of -19% x 3 months, and NFPE findings for moderate subcutaneous fat loss and moderate muscle wasting. Increased nutrient needs related to altered skin integrity as evidenced by pressure injuries Goal:PO intake greater than 50% of meals and supplements Pt not meeting goal. Pt current nutrition is Diabetic consistent carb, Glucerna shakes TID, KERON TID. Nutrition recommendation: encourage po intake Last recorded weight is 64.1 kg. Bowel Motility: +BM 3/5 Labs Reviewed: NA:127, GFR:29, BUN:57, Cr:1.7, Glu:262 Meds Noted: lasix, colace, zofran, novolog, lantus Skin: DTPI to sacrum, stage III to buttocks x 2 Additional Notes: Pt continues on a diabetic diet, intake is poor per nursing, pt is confused. Noted 1000ml fluid restriction. Encourage po intake specifically of supplements, assistance with meals. Monitor intake, wt, labs, skin. Follow up in 5 days.
[2023-05-31 11:36] LABS: Glucose Point of Care 72 mg/dl (65-105)
[2023-05-31 16:19] LABS: Glucose Point of Care 166 mg/dl (65-105)
[2023-05-31 20:00] VITALS: PULSE 76; RESP 14; O2SAT 100
[2023-05-31 20:20] VITALS: BP 94/40; PULSE 73; RESP 32; TEMP 36.6; O2SAT 99
[2023-05-31 20:34] LABS: Glucose Point of Care 165 mg/dl (65-105)
[2023-05-31] MEDS: ROSUVASTATIN 10 MG TABLET 20 MG PO (21:02)
[2023-05-31] MEDS: INSULIN GLARGINE (*BKC) 100 UNITS/ML 25 UNITS SUB-Q (21:02)
[2023-06-01 04:25] VITALS: BP 118/56; PULSE 80; RESP 26; TEMP 36.1; O2SAT 99
[2023-06-01] MEDS: AMOXICILLIN 500 MG CAPSULE PO ×3 (05:18→20:59)
[2023-06-01 07:51] LABS: Glucose Point of Care 132 mg/dl (65-105)
[2023-06-01 08:51] VITALS: PULSE 74
[2023-06-01] MEDS: CYANOCOBALAMIN 500 MCG TABLET PO (08:51)
[2023-06-01] MEDS: SPIRONOLACTONE 25 MG TABLET PO (08:51)
[2023-06-01] MEDS: METOPROLOL SUCCINATE EXT REL 50 MG TABCR PO (08:51)
[2023-06-01] MEDS: SUCRALFATE 1 GM TABLET PO (08:52)
[2023-06-01] MEDS: FERROUS SULFATE 325 MG TABLET DR PO ×2 (08:52→17:53)
[2023-06-01] MEDS: ASPIRIN 81 MG CHEWABLE TABLET PO (08:52)
[2023-06-01] MEDS: QUEtiapine FUMARATE 12.5 MG TABLET PO (08:52)
[2023-06-01] MEDS: DOCUSATE SODIUM 100 MG CAPSULE PO (08:56)
[2023-06-01] MEDS: FUROSEMIDE INJ 40 MG/4 ML VIAL IV PUSH (08:57)
[2023-06-01] MEDS: lisinopriL 10 MG TABLET PO (08:59)
[2023-06-01] MEDS: ENOXAPARIN 40 MG/0.4 ML SYRINGE SUB-Q (09:00)
[2023-06-01 11:27] LABS: Glucose Point of Care 194 mg/dl (65-105)
[2023-06-01 14:00] VITALS: BP 85/37; PULSE 70; RESP 20; TEMP 36.5; O2SAT 98
--- NOTE | 2023-06-01 15:40 | PM.IMPN ---
Progress Note: A&P Assessment and Plan (1) Sepsis secondary to UTI: Code(s): A41.9 - Sepsis, unspecified organism; N39.0 - Urinary tract infection, site not specified Status: Acute Assessment and Plan: Patient was switched to oral amoxicillin last dose on 06/06/2023 starting today (2) Sepsis: Code(s): A41.9 - Sepsis, unspecified organism Status: Acute Assessment and Plan: Status post IV hydration IV antibiotics concern oral antibiotics improved (3) Decubitus ulcer of sacral area: Code(s): L89.159 - Pressure ulcer of sacral region, unspecified stage Status: Acute Assessment and Plan: Wound care was consulted follow-up with wound care as outpatient (4) Acute kidney injury: Code(s): N17.9 - Acute kidney failure, unspecified Status: Acute Assessment and Plan: Treated with IV hydration improved follow CMP DC IV fluid as patient has sign of fluid overload started on IV Lasix (5) Gait abnormality: Code(s): R26.9 - Unspecified abnormalities of gait and mobility Status: Acute Assessment and Plan: PT OT evaluation patient came from [facility] (6) Elevated troponin: Code(s): R79.89 - Other specified abnormal findings of blood chemistry Status: Acute Assessment and Plan: Probably related to demand ischemia secondary to above monitor (7) Diabetes mellitus: Code(s): E11.9 - Type 2 diabetes mellitus without complications Status: Acute Assessment and Plan: Continue current treatment insulin sliding scale (8) Combined systolic and diastolic congestive heart failure: Qualifiers: Heart failure chronicity: chronic Qualified Code(s): I50.42 - Chronic combined systolic (congestive) and diastolic (congestive) heart failure Code(s): I50.40 - Unspecified combined systolic (congestive) and diastolic (congestive) heart failure Status: Chronic Assessment and Plan: Acute and of chronic was combined systolic and diastolic CHF exacerbation developed in hospitalization continue IV Lasix (9) ICD (implantable cardioverter-defibrillator) in place: Onset Date: ~2011 Code(s): Z95.810 - Presence of automatic (implantable) cardiac defibrillator Status: Chronic Assessment and Plan: Monitor (10) Hypertension: Qualifiers: Hypertension type: essential hypertension Qualified Code(s): I10 - Essential (primary) hypertension Code(s): I10 - Essential (primary) hypertension Status: Chronic Assessment and Plan: Continue current treatment (11) CAD (coronary artery disease): Qualifiers: Coronary Disease-Associated Artery/Lesion type: [place] artery [place] vs. transplanted heart: [place] heart Associated angina: without angina Qualified Code(s): I25.10 - Atherosclerotic heart disease of [place] coronary artery without angina pectoris Code(s): I25.10 - Atherosclerotic heart disease of [place] coronary artery without angina pectoris Status: Chronic Assessment and Plan: Stable Anticipate discharge in 1-2 days to acute rehab Time Spent With Patient Time with patient: 25 - 35 minutes Subjective Date/time seen: 06/01/23 15:40 Interval history: Patient seen and examined Patient still have generalized weakness been treated for sepsis UTI better Patient denies fever headache chest pain shortness of breath I am seeing the patient for UTI Review of Systems Review of Systems: 14 systems were reviewed with pertinent positives and negatives per HPI. Except as documented in the HPI/progress notes, all other systems were reviewed and are negative. All systems reviewed & are unremarkable except as noted in HPI and below ROS unobtainable: Yes unobtainable due to medical condition and unobtainable due to mental status Exam Narrative: Alert Chest no wheeze crackles Abdomen nontender nondistended CVS S1 + S2 Lower
[2023-06-01 16:31] LABS: Glucose Point of Care 193 mg/dl (65-105)
[2023-06-01 19:47] VITALS: PULSE 70; RESP 20; O2SAT 98
[2023-06-01 20:35] VITALS: BP 90/47; PULSE 67; RESP 18; TEMP 36.6; O2SAT 99
[2023-06-01 20:44] LABS: Glucose Point of Care 171 mg/dl (65-105)
[2023-06-01] MEDS: ROSUVASTATIN 10 MG TABLET 20 MG PO (20:59)
[2023-06-01] MEDS: INSULIN GLARGINE (*BKC) 100 UNITS/ML 25 UNITS SUB-Q (20:59)
[2023-06-02 04:50] VITALS: BP 92/44; PULSE 68; RESP 22; TEMP 36.1; O2SAT 99
[2023-06-02] MEDS: AMOXICILLIN 500 MG CAPSULE PO ×3 (05:24→21:56)
[2023-06-02 06:58] LABS: Basophils Absolute Auto 0.1 K/mm3 (0.0-0.1); Basophils Percent Auto 0.6 % (0.2-1.2); Eosinophils Absolute Auto 0.2 K/mm3 (0-0.3); Eosinophils Percent Auto 1.3 % (0-4.4); Hematocrit 30.1 % (37.0-47.0); Hemoglobin 9.3 g/dL (12.0-15.0); Immature Granulocyte Absolute 0.14 K/mm3 (0.00-0.031); Lymphocytes Absolute Auto 1.04 K/mm3 (0.9-3.2); Lymphocytes Percent Auto 7.7 % (18.3-44.2); Mean Corpuscular HGB Conc 30.9 g/dl (32-36); Mean Corpuscular Hemoglobin 28.5 pg (26-34); Mean Corpuscular Volume 92.3 fl (80-100); Mean Platelet Volume 8.6 fl (7.4-10.4); Monocytes Absolute Auto 1.3 K/mm3 (0.1-0.6); Monocytes Percent Auto 9.7 % (2.6-8.5); Neutrophils Absolute Auto 10.8 K/mm3 (1.3-6.7); Neutrophils Percent Auto 79.7 % (45.5-73.1); Platelet Count Result 481 k/mm3 (150-375); Red Blood Count 3.26 M/mm3 (4.2-5.4); Red Cell Distribution Width 13.2 % (11.5-14.5); White Blood Count 13.5 K/mm3 (4.5-10.0)
[2023-06-02 07:07] LABS: Alanine Aminotransferase 24 U/L (6-35); Albumin Level 3.1 g/dL (3.5-5.1); Alkaline Phosphatase 94 U/L (38-126); Anion Gap 8 mmol/L (8-16); Aspartate Amino Transferase 28 U/L (14-36); Bilirubin,Total 0.6 mg/dL (0.2-1.3); Blood Urea Nitrogen 58 mg/dL (7-17); Carbon Dioxide 26 mmol/L (22-30); Chloride 95 mmol/L (98-107); Estimated CRCL calculation 26 ml/min; Estimated Glomerular Filt Rate 39; Glucose 191 mg/dL (65-110); Sodium 129 mmol/L (137-145)
[2023-06-02 07:53] LABS: Glucose Point of Care 164 mg/dl (65-105)
[2023-06-02 09:04] VITALS: PULSE 75
[2023-06-02] MEDS: lisinopriL 10 MG TABLET PO (09:04)
[2023-06-02] MEDS: SPIRONOLACTONE 25 MG TABLET PO (09:04)
[2023-06-02] MEDS: FERROUS SULFATE 325 MG TABLET DR PO ×2 (09:04→17:38)
[2023-06-02] MEDS: ASPIRIN 81 MG CHEWABLE TABLET PO (09:04)
[2023-06-02] MEDS: CYANOCOBALAMIN 500 MCG TABLET PO (09:04)
[2023-06-02] MEDS: SUCRALFATE 1 GM TABLET PO (09:04)
[2023-06-02] MEDS: METOPROLOL SUCCINATE EXT REL 50 MG TABCR PO (09:04)
[2023-06-02] MEDS: FUROSEMIDE INJ 40 MG/4 ML VIAL IV PUSH (09:04)
[2023-06-02] MEDS: ENOXAPARIN 40 MG/0.4 ML SYRINGE SUB-Q (09:05)
[2023-06-02 11:07] LABS: Glucose Point of Care 175 mg/dl (65-105)
[2023-06-02 12:27] LABS: Procalcitonin 0.3 ng/mL
--- NOTE | 2023-06-02 12:52 | PM.IMPN ---
Progress Note: A&P Assessment and Plan (1) Sepsis secondary to UTI: Code(s): A41.9 - Sepsis, unspecified organism; N39.0 - Urinary tract infection, site not specified Status: Acute Assessment and Plan: Patient was switched to oral amoxicillin last dose on 06/06/2023 starting today (2) Sepsis: Code(s): A41.9 - Sepsis, unspecified organism Status: Acute Assessment and Plan: Status post IV hydration IV antibiotics concern oral antibiotics improved (3) Decubitus ulcer of sacral area: Code(s): L89.159 - Pressure ulcer of sacral region, unspecified stage Status: Acute Assessment and Plan: Wound care was consulted follow-up with wound care as outpatient (4) Acute kidney injury: Code(s): N17.9 - Acute kidney failure, unspecified Status: Acute Assessment and Plan: Treated with IV hydration improved follow CMP DC IV fluid as patient has sign of fluid overload started on IV Lasix (5) Gait abnormality: Code(s): R26.9 - Unspecified abnormalities of gait and mobility Status: Acute Assessment and Plan: PT OT evaluation patient came from [facility] (6) Elevated troponin: Code(s): R79.89 - Other specified abnormal findings of blood chemistry Status: Acute Assessment and Plan: Probably related to demand ischemia secondary to above monitor (7) Diabetes mellitus: Code(s): E11.9 - Type 2 diabetes mellitus without complications Status: Acute Assessment and Plan: Continue current treatment insulin sliding scale (8) Combined systolic and diastolic congestive heart failure: Qualifiers: Heart failure chronicity: chronic Qualified Code(s): I50.42 - Chronic combined systolic (congestive) and diastolic (congestive) heart failure Code(s): I50.40 - Unspecified combined systolic (congestive) and diastolic (congestive) heart failure Status: Chronic Assessment and Plan: Acute and of chronic was combined systolic and diastolic CHF exacerbation developed in hospitalization continue IV Lasix (9) ICD (implantable cardioverter-defibrillator) in place: Onset Date: ~2011 Code(s): Z95.810 - Presence of automatic (implantable) cardiac defibrillator Status: Chronic Assessment and Plan: Monitor (10) Hypertension: Qualifiers: Hypertension type: essential hypertension Qualified Code(s): I10 - Essential (primary) hypertension Code(s): I10 - Essential (primary) hypertension Status: Chronic Assessment and Plan: Continue current treatment (11) CAD (coronary artery disease): Qualifiers: Coronary Disease-Associated Artery/Lesion type: [place] artery [place] vs. transplanted heart: [place] heart Associated angina: without angina Qualified Code(s): I25.10 - Atherosclerotic heart disease of [place] coronary artery without angina pectoris Code(s): I25.10 - Atherosclerotic heart disease of [place] coronary artery without angina pectoris Status: Chronic Assessment and Plan: Stable Anticipate discharge in 1-2 days to acute rehab Plan Sepsis alert today; continue antibiotics today; Will DC soon Time Spent With Patient Time with patient: 25 - 35 minutes Subjective Date/time seen: 06/02/23 12:52 Interval history: Patient seen and examined Patient still have generalized weakness been treated for sepsis UTI better Patient denies fever headache chest pain shortness of breath Not upbeat and tired-looking. Review of Systems Review of Systems: 14 systems were reviewed with pertinent positives and negatives per HPI. Except as documented in the HPI/progress notes, all other systems were reviewed and are negative. All systems reviewed & are unremarkable except as noted in HPI and below ROS unobtainable: Yes unobtainable due to medical condition and unobtainable due to mental status ENT: Reports Normal hearing present a
[2023-06-02 14:00] VITALS: BP 82/25; PULSE 72; RESP 18; TEMP 36.6; O2SAT 98
[2023-06-02 16:20] LABS: Glucose Point of Care 184 mg/dl (65-105)
[2023-06-02 20:00] VITALS: O2SAT 97
[2023-06-02 20:20] VITALS: BP 97/38; PULSE 75; RESP 18; TEMP 36.2; O2SAT 97
[2023-06-02 20:33] LABS: Glucose Point of Care 177 mg/dl (65-105)
[2023-06-02] MEDS: INSULIN GLARGINE (*BKC) 100 UNITS/ML 25 UNITS SUB-Q (21:41)
[2023-06-02] MEDS: ROSUVASTATIN 10 MG TABLET 20 MG PO (21:56)
[2023-06-03 04:40] VITALS: BP 117/48; PULSE 69; RESP 26; TEMP 36.6; O2SAT 100
[2023-06-03] MEDS: AMOXICILLIN 500 MG CAPSULE PO ×2 (05:50→12:35)
[2023-06-03 08:00] VITALS: PULSE 62
[2023-06-03 08:13] LABS: Glucose Point of Care 159 mg/dl (65-105)
[2023-06-03 08:24] VITALS: BP 121/45
[2023-06-03] MEDS: ASPIRIN 81 MG CHEWABLE TABLET PO (08:26)
[2023-06-03] MEDS: SPIRONOLACTONE 25 MG TABLET PO (08:26)
[2023-06-03] MEDS: FERROUS SULFATE 325 MG TABLET DR PO ×2 (08:27→17:18)
[2023-06-03] MEDS: SUCRALFATE 1 GM TABLET PO (08:27)
[2023-06-03] MEDS: DOCUSATE SODIUM 100 MG CAPSULE PO ×2 (08:27→17:18)
[2023-06-03] MEDS: ENOXAPARIN 40 MG/0.4 ML SYRINGE SUB-Q (08:27)
[2023-06-03] MEDS: CYANOCOBALAMIN 500 MCG TABLET PO (08:27)
[2023-06-03 09:18] LABS: Basophils Absolute Auto 0.1 K/mm3 (0.0-0.1); Basophils Percent Auto 0.7 % (0.2-1.2); Eosinophils Absolute Auto 0.1 K/mm3 (0-0.3); Eosinophils Percent Auto 1.5 % (0-4.4); Hemoglobin 8.4 g/dL (12.0-15.0); Immature Granulocyte Absolute 0.07 K/mm3 (0.00-0.031); Immature Granulocyte Percent A 0.8 % (0-0.5); Lymphocytes Absolute Auto 0.98 K/mm3 (0.9-3.2); Lymphocytes Percent Auto 11.1 % (18.3-44.2); Mean Corpuscular Hemoglobin 27.8 pg (26-34); Mean Corpuscular Volume 92.7 fl (80-100); Mean Platelet Volume 8.6 fl (7.4-10.4); Monocytes Percent Auto 11.4 % (2.6-8.5); Neutrophils Absolute Auto 6.6 K/mm3 (1.3-6.7); Neutrophils Percent Auto 74.5 % (45.5-73.1); Platelet Count Result 507 k/mm3 (150-375); Red Blood Count 3.02 M/mm3 (4.2-5.4); Red Cell Distribution Width 13.2 % (11.5-14.5); White Blood Count 8.8 K/mm3 (4.5-10.0)
[2023-06-03 09:31] LABS: Alanine Aminotransferase 21 U/L (6-35); Albumin Level 3.1 g/dL (3.5-5.1); Alkaline Phosphatase 89 U/L (38-126); Anion Gap 5 mmol/L (8-16); Aspartate Amino Transferase 23 U/L (14-36); Bilirubin,Total 0.6 mg/dL (0.2-1.3); Blood Urea Nitrogen 68 mg/dL (7-17); Carbon Dioxide 27 mmol/L (22-30); Chloride 94 mmol/L (98-107); Estimated CRCL calculation 28 ml/min; Estimated Glomerular Filt Rate 43; Glucose 161 mg/dL (65-110); Potassium 4.1 mmol/L (3.4-5.0); Sodium 126 mmol/L (137-145)
[2023-06-03 11:35] LABS: Glucose Point of Care 204 mg/dl (65-105)
[2023-06-03] MEDS: INSULIN ASPART (*BKC) 100 UNITS/ML SUB-Q (12:35)
[2023-06-03 14:00] VITALS: BP 138/110; PULSE 70; RESP 20; TEMP 36.6; O2SAT 98
--- NOTE | 2023-06-03 16:05 | PM.IMPN ---
Progress Note: A&P Assessment and Plan (1) Sepsis secondary to UTI: Code(s): A41.9 - Sepsis, unspecified organism; N39.0 - Urinary tract infection, site not specified Status: Acute Assessment and Plan: Patient was switched to oral amoxicillin last dose on 06/06/2023 starting today (2) Sepsis: Code(s): A41.9 - Sepsis, unspecified organism Status: Acute Assessment and Plan: Status post IV hydration IV antibiotics concern oral antibiotics improved (3) Decubitus ulcer of sacral area: Code(s): L89.159 - Pressure ulcer of sacral region, unspecified stage Status: Acute Assessment and Plan: Wound care was consulted follow-up with wound care as outpatient (4) Acute kidney injury: Code(s): N17.9 - Acute kidney failure, unspecified Status: Acute Assessment and Plan: Treated with IV hydration improved follow CMP DC IV fluid as patient has sign of fluid overload started on IV Lasix (5) Gait abnormality: Code(s): R26.9 - Unspecified abnormalities of gait and mobility Status: Acute Assessment and Plan: PT OT evaluation patient came from [facility] (6) Elevated troponin: Code(s): R79.89 - Other specified abnormal findings of blood chemistry Status: Acute Assessment and Plan: Probably related to demand ischemia secondary to above monitor (7) Diabetes mellitus: Code(s): E11.9 - Type 2 diabetes mellitus without complications Status: Acute Assessment and Plan: Continue current treatment insulin sliding scale (8) Combined systolic and diastolic congestive heart failure: Qualifiers: Heart failure chronicity: chronic Qualified Code(s): I50.42 - Chronic combined systolic (congestive) and diastolic (congestive) heart failure Code(s): I50.40 - Unspecified combined systolic (congestive) and diastolic (congestive) heart failure Status: Chronic Assessment and Plan: Acute and of chronic was combined systolic and diastolic CHF exacerbation developed in hospitalization continue IV Lasix (9) ICD (implantable cardioverter-defibrillator) in place: Onset Date: ~2011 Code(s): Z95.810 - Presence of automatic (implantable) cardiac defibrillator Status: Chronic Assessment and Plan: Monitor (10) Hypertension: Qualifiers: Hypertension type: essential hypertension Qualified Code(s): I10 - Essential (primary) hypertension Code(s): I10 - Essential (primary) hypertension Status: Chronic Assessment and Plan: Continue current treatment (11) CAD (coronary artery disease): Qualifiers: Associated angina: without angina Coronary Disease-Associated Artery/Lesion type: [place] artery [place] vs. transplanted heart: [place] heart Qualified Code(s): I25.10 - Atherosclerotic heart disease of [place] coronary artery without angina pectoris Code(s): I25.10 - Atherosclerotic heart disease of [place] coronary artery without angina pectoris Status: Chronic Assessment and Plan: Stable Anticipate discharge in 1-2 days to acute rehab Plan Sepsis alert today; continue antibiotics today; Will DC soon Subjective Date/time seen: 06/03/23 16:05 Interval history: Patient seen and examined Patient still have generalized weakness been treated for sepsis UTI better Patient denies fever headache chest pain shortness of breath Not upbeat and tired-looking. Review of Systems Review of Systems: 14 systems were reviewed with pertinent positives and negatives per HPI. Except as documented in the HPI/progress notes, all other systems were reviewed and are negative. All systems reviewed & are unremarkable except as noted in HPI and below ROS unobtainable: Yes unobtainable due to medical condition and unobtainable due to mental status ENT: Reports Normal hearing present, Denies dysphagia and Denies neck pain Cardiovascular: Card
[2023-06-03 16:46] LABS: Glucose Point of Care 214 mg/dl (65-105)
--- NOTE | 2023-06-03 17:09 | PC.NURSE ---
Spoke to lab about adding osmolality onto today's already drawn labs. Per laboratory staff, osmolality blood test gets sent out to [facility]. Informed Dr. Armas and he gave the ok to cancel the osmolality test. Pt. on track to discharge to [facility] today.
--- NOTE | 2023-06-03 17:53 | PM.DS ---
DS: Admitting Diagnosis Discharge Date 06/03/23 Admitting Diagnosis 1. Sepsis 2/2 UTI 2. Acute metabolic encephalopathy DS: Discharge Diagnosis Discharge Diagnosis (1) Sepsis secondary to UTI: Code(s): A41.9 - Sepsis, unspecified organism; N39.0 - Urinary tract infection, site not specified Status: Acute Assessment and Plan: Patient was switched to oral amoxicillin last dose on 06/06/2023 starting today (2) Sepsis: Code(s): A41.9 - Sepsis, unspecified organism Status: Acute Assessment and Plan: Status post IV hydration IV antibiotics concern oral antibiotics improved (3) Decubitus ulcer of sacral area: Code(s): L89.159 - Pressure ulcer of sacral region, unspecified stage Status: Acute Assessment and Plan: Wound care was consulted follow-up with wound care as outpatient (4) Acute kidney injury: Code(s): N17.9 - Acute kidney failure, unspecified Status: Acute Assessment and Plan: Treated with IV hydration improved follow CMP DC IV fluid as patient has sign of fluid overload started on IV Lasix (5) Gait abnormality: Code(s): R26.9 - Unspecified abnormalities of gait and mobility Status: Acute Assessment and Plan: PT OT evaluation patient came from [facility] (6) Elevated troponin: Code(s): R79.89 - Other specified abnormal findings of blood chemistry Status: Acute Assessment and Plan: Probably related to demand ischemia secondary to above monitor (7) Diabetes mellitus: Code(s): E11.9 - Type 2 diabetes mellitus without complications Status: Acute Assessment and Plan: Continue current treatment insulin sliding scale (8) Combined systolic and diastolic congestive heart failure: Qualifiers: Heart failure chronicity: chronic Qualified Code(s): I50.42 - Chronic combined systolic (congestive) and diastolic (congestive) heart failure Code(s): I50.40 - Unspecified combined systolic (congestive) and diastolic (congestive) heart failure Status: Chronic Assessment and Plan: Acute and of chronic was combined systolic and diastolic CHF exacerbation developed in hospitalization continue IV Lasix (9) ICD (implantable cardioverter-defibrillator) in place: Onset Date: ~2011 Code(s): Z95.810 - Presence of automatic (implantable) cardiac defibrillator Status: Chronic Assessment and Plan: Monitor (10) Hypertension: Qualifiers: Hypertension type: essential hypertension Qualified Code(s): I10 - Essential (primary) hypertension Code(s): I10 - Essential (primary) hypertension Status: Chronic Assessment and Plan: Continue current treatment (11) CAD (coronary artery disease): Qualifiers: Associated angina: without angina Coronary Disease-Associated Artery/Lesion type: [place] artery [place] vs. transplanted heart: [place] heart Qualified Code(s): I25.10 - Atherosclerotic heart disease of [place] coronary artery without angina pectoris Code(s): I25.10 - Atherosclerotic heart disease of [place] coronary artery without angina pectoris Status: Chronic Assessment and Plan: Stable Anticipate discharge in 1-2 days to acute rehab Plan Sepsis alert today; continue antibiotics today; Will DC soon DS: Summary Hospital Course Reason for hospitalization: 1. Acute metabolic encephalopathy 2. UTI Hospital Course: Chief Complaint: [facility] from [facility] for evaluation of generalized weakness and altered mental state Narrative: She was noticed to be confused, feeling very weak and tired and was not acting herself.? The nursing facility got concerned and sent her to the ER for evaluation.? Workup was done which shows sepsis due to UTI.? Patient received aggressive IV hydration and IV antibiotics.? She also has the multiple sacral decubitus wounds on her buttocks which wound care consult ord
== END 2023-06-03 19:15 | DRG 871 ==
LOC: ANHED 05-26 03:40 → ANHIMU 05-26 08:01 → ANH3MEDSUR 05-30 10:13 → ANHIMU 06-06 09:48
PROVIDERS: Internal Medicine; Admitting Provider Internal Medicine; Emergency Provider Emergency Medicine; PCP Nurse Practitioner Family; Visit Provider Family Medicine
DX: A41.9 Sepsis, unspecified organism (principal); I50.43 Acute on chronic combined systolic (congestive) and diastolic (congestive) heart failure; N39.0 Urinary tract infection, site not specified; N17.9 Acute kidney failure, unspecified; I13.0 Hypertensive heart and chronic kidney disease with heart failure and stage 1 through stage 4 chronic kidney disease, or unspecified chronic kidney disease; E87.1 Hypo-osmolality and hyponatremia; E44.0 Moderate protein-calorie malnutrition; L89.159 Pressure ulcer of sacral region, unspecified stage; E55.9 Vitamin D deficiency, unspecified; E11.22 Type 2 diabetes mellitus with diabetic chronic kidney disease; E11.42 Type 2 diabetes mellitus with diabetic polyneuropathy; E78.5 Hyperlipidemia, unspecified; E53.8 Deficiency of other specified B group vitamins; I25.10 Atherosclerotic heart disease of native coronary artery without angina pectoris; K59.09 Other constipation; I25.2 Old myocardial infarction; N18.30 Chronic kidney disease, stage 3 unspecified; Z20.822 Contact with and (suspected) exposure to COVID-19; Z86.16 Personal history of COVID-19; Z98.84 Bariatric surgery status; Z90.49 Acquired absence of other specified parts of digestive tract; Z95.810 Presence of automatic (implantable) cardiac defibrillator; Z90.710 Acquired absence of both cervix and uterus; Z95.5 Presence of coronary angioplasty implant and graft; Z87.891 Personal history of nicotine dependence; Z68.25 Body mass index [BMI] 25.0-25.9, adult
CPT/HCPCS: 36415; 71045; 74176; 80048; 80053; 80202; 81001; 82948; 83605; 83735; 84100; 84145; 84484; 85025; 85055; 85610; 85730; 87040; 87086; 87088; 87637; 92610; 93005; 96361; 96365; 96367; 97110; 97161; 97166; 97530; 99285; A9270; J0692; J1650; J1815; J1940; J2405; J3370; J7030

== ENCOUNTER 2023-06-05 10:17 | Inpatient (IN) | payer MEDICARE, BC, SELFPAY ==
[2023-06-05] VITALS (7 sets, daily range): BP systolic 105–126; BP diastolic 45–58; PULSE 68–90; RESP 16–24; TEMP 36.5–37.6; O2SAT 96–100; BMI 23.3
--- NOTE | ~2023-06-05 | XR_ITS ---
EXAMINATION: XR barium swallow modified DATE: 06/06/2023 14:36 INDICATION: Aspiration pneumonia. TECHNIQUE: The patient was given barium-containing material of multiple consistencies to swallow by t aster speech pathologist while I performed fluoroscopy. Fluoroscopy exposure time was 1.4 minutes. The n umber of fluoroscopy images saved to the PACS was 1. Dose-area product was 0.797 Gy-cm^2. FINDINGS: The oral stage, pharyngeal stage, and cervical/esophageal stage of the swallow are grossly within nor mal limits. IMPRESSION: 1. Grossly normal modified barium swallow. 2. Please refer to the speech therapy report for recommendations. Reviewed, dictated and finalized at location A.
--- NOTE | ~2023-06-05 | XR_ITS ---
XR chest 1V portable DATE: 06/05/2023 13:10 INDICATION: Altered mental status. Weakness. TECHNIQUE: Portable supine AP chest on 06/05/2023 at 1308 hours COMPARISON: May 25, 2023 portable AP chest FINDINGS: Left dual-lead pacemaker device with leads overlying right atrium and right ventricle. Norm al heart size. Mild aortic calcification and unfolding. No hilar or mediastinal enlargement. Mild elevation right diaphragm and minimal infiltrate or atelectasis at the right lung base. Otherwis e no pulmonary infiltrate or consolidation, pleural effusion or pulmonary vascular congestion or pneu mothorax is detected. Osteopenia. IMPRESSION: Mild elevation right diaphragm and minimal infiltrate or atelectasis at right lung base Reviewed, dictated and finalized at location A. IMPRESSION: Mild elevation right diaphragm and minimal infiltrate or atelectasi s at right lung base
--- NOTE | ~2023-06-05 | CT_ITS ---
EXAMINATION: CT brain wo con DATE: 06/05/2023 13:19 INDICATION: Confusion TECHNIQUE: Computed tomography (CT) of the head was performed without intravenous contrast. The mA wa s adjusted according to patient size. Iterative reconstruction technique was employed. Exam dose: 60 5.33 mGy-cm total exam DLP. COMPARISON: 09/10/2022 CT brain FINDINGS: There is central and cortical cerebral and cerebellar atrophy. Cerebral atherosclerosis and chronic small vessel ischemic changes of cerebral white matter No acute intracranial finding nonspecific diminished attenuation of the cerebral white matter, likely due to chronic small vessel ischemic changes. Prominent bilateral carotid siphon internal carotid artery calcifications. Bilateral vertebral artery and basilar artery calcifications. No intracranial mass lesion or hemorrhage or cerebrovascular accident, midline shift or mass effect e ffect is detected. No subdural or epidural hematoma is noted. Old blowout fracture of medial wall right orbit. No skull fracture or bone destruction. Prominent soft tissue thickening and/or fluid in the dependent posterior sphenoid sinuses. The includ ed paranasal sinuses and mastoid air cells are otherwise unremarkable. IMPRESSION: Bilateral sphenoid sinus disease Cerebral and cerebellar atrophy Cerebral atherosclerosis and chronic small vessel ischemic changes of the cerebral white matter No acute intracranial finding Reviewed, dictated and finalized at Location A. Reviewed, dictated and finalized at location A. IMPRESSION: Bilateral sphenoid sinus disease Cerebral and cerebellar atrophy Cerebral atherosclerosis and chronic small vessel ischemic changes of the cereb ral white matter No acute intracranial finding
--- NOTE | ~2023-06-05 | NM_ITS ---
EXAMINATION: JARRED koroma renal scan DATE: 06/08/2023 09:36 INDICATION: Bilateral hydronephrosis TECHNIQUE: 8.5 mCi Tc-99m MAG3 was administered IV. 40 mg furosemide was administered IV immediately afterward. The patient was scanned in the supine position. A posterior abdominal radionuclide angiog pricila was obtained. A subsequent time course of static images of the kidneys, ureters, and bladder was obtained. COMPARISON: CT dated 05/26/2023 and ultrasound dated 06/06/2023 FINDINGS: The posterior abdominal radionuclide angiogram and sequential static images show normal size, positio n, and morphology of the kidneys. There is a central photopenic defect on the early images of the lef t renal hilum which along the proximal left ureter gradually accumulates activity on the delayed imag ing consistent with the hydroureteronephrosis seen on prior ultrasound. Peak renal parenchymal uptake was 12.5 min in left kidney and 3.5 min in right kidney (normal peak 3-5 minutes). The relative ear ly renal uptake was 41% on the left and 59% on the right (<40% is abnormal). No abnormalities of the ureters or bladder are seen. T1/2 for clearance of activity from the left kidney and proximal collecting system was 52 minutes. T1/2 for clearance of activity from the right kidney and proximal collecting system was 29 minutes. Notes on interpretation: T1/2 <10 minutes is normal, 10-15 minutes is low grade obstruction of questi onable clinical significance, 15-20 minutes is partial obstruction that is likely clinically signific ant, >20 minutes is high grade obstruction. Note that false positives may be seen with supine positio mannie, dehydration, severely dilated nonobstructed kidney, atonic collecting system, poor renal functi on, and chronic furosemide use. IMPRESSION: 1. Asymmetric renal function which is at the upper limits of normal with the left kidney contributin g only 41% total renal function. 2. Delayed activity clearance from both kidneys more prominent on the left where there is also a valencia yed time to peak which corresponds to the similar, left greater than right, high-grade bilateral hydr onephrosis. Reviewed, dictated and finalized at location B. IMPRESSION: 1. Asymmetric renal function which is at the upper limits of normal with the l eft kidney contributing only 41% total renal function. 2. Delayed activity clearance from both kidneys more prominent on the left wher e there is also a delayed time to peak which corresponds to the similar, left g reater than right, high-grade bilateral hydronephrosis.
--- NOTE | ~2023-06-05 | US_ITS ---
EXAMINATION: US renal BI DATE: 06/06/2023 15:12 INDICATION: Abnormal urinalysis. Prior hydroureteronephrosis. TECHNIQUE: Multiple ultrasound grayscale images of the kidneys were obtained. COMPARISON: CT abdomen and pelvis dated 05/26/2023 FINDINGS: The right kidney measures 10.9 x 4.6 x 4.8 cm. The left kidney measures 10.1 x 5.6 x 3.9 cm. The kidn eys demonstrate normal echogenicity. There is moderate left hydronephrosis as well as hydroureter of the visualized proximal left ureter. Minimal right hydronephrosis. No stones identified. There is pro minent diffuse wall thickening at the decompressed bladder. IMPRESSION: 1. Moderate left hydronephrosis and minimal right hydronephrosis. 2. Prominent diffuse wall thickening of the decompressed bladder. Reviewed, dictated and finalized at location B.
--- NOTE | 2023-06-05 12:35 | ECG_ITS ---
Measurements Intervals [place] Rate: 83 P: 62 VA: 163 QRS: -4 QRSD: 145 T: 32 QT: 420 QTc: 496 Interpretive Statements SINUS RHYTHM RIGHT BUNDLE BRANCH BLOCK CANNOT RULE OUT SEPTAL INFARCT, AGE INDETERMINATE BASELINE ARTIFACT- I, II, III, AVR, AVL, AVF ABNORMAL ECG COMPARED TO ECG 05/25/2023 22:30:21 SINUS RHYTHM NOW PRESENT Electronically Signed On 06-05-2023 15:15:21 CDT by John Luong D.O.
[2023-06-05 12:56] LABS: Glucose Point of Care 158 mg/dl (65-105)
--- NOTE | 2023-06-05 12:56 | ED.AMS ---
HPI - Altered Mental Status General Chief Complaint: Altered Mental Status Stated Complaint: AMS Time Seen by Provider: 06/05/23 12:35 Source: patient and family Mode of arrival: EMS Limitations: altered mental status History of Present Illness HPI narrative: 82-year-old female here for altered mental status. Has been discharged 2 days ago for UTI with altered mental status to a nursing facility. Reportedly was more weak today and confused. Son says that this has been an ongoing issue for the last month has been waxing and waning and she has been inside hospitalist and nursing facilities. Recently was treated for UTI. Was at a nursing facility And son said that she never really improved back to her baseline but has gotten worse over the last 24 hours. Related Data Home Medications Medication Instructions Recorded Confirmed insulin aspart U-100 3 sliding scale dose subcut TIDWM 05/26/23 05/26/23 insulin aspart U-100 10 unit subcut TIDWM 05/26/23 05/26/23 rosuvastatin 20 mg tablet 20 mg PO HS 05/26/23 05/26/23 Allergies Allergy/AdvReac Type Severity Reaction Status Date / Time No Known Allergies Allergy Unknown Verified 05/08/23 02:55 Review of Systems Review of Systems: All systems reviewed & are unremarkable except as noted in HPI and below PMFSH Past Medical History Medical History Anxiety Arthritis B12 deficiency BPPV (benign paroxysmal positional vertigo) CAD (coronary artery disease) Chronic constipation Chronic hyponatremia Chronic lower back pain CKD (chronic kidney disease) stage 3, GFR 30-59 ml/min Closed fracture of right humerus (09/2019) Combined systolic and diastolic congestive heart failure Echocardiogram 01/2022: EF 35-40%, grade 1 diastolic dysfunction, technically difficult study COPD with asthma COVID-19 (~01/2022) Diabetic peripheral neuropathy Eczema Encounter for servicing of pacemaker at end of battery life Frequent UTI Gallstone pancreatitis (02/04/22) Gastric ulcer Resulting in GI bleed 01/2022 Gout Hyperlipidemia Hypertension IDDM (insulin dependent diabetes mellitus) Insomnia Ischemic cardiomyopathy Mitral regurgitation CONTRERAS (nonalcoholic steatohepatitis) Noted on ultrasound in 2011 NSTEMI (non-ST elevated myocardial infarction) Obstructive sleep apnea Mostly noncompliant with CPAP use Osteoarthritis Peripheral artery disease Portal vein thrombosis (01/2022) Not treated due to active GI bleed of the time Reflux esophagitis Seasonal allergies Type 2 diabetes mellitus Historically uncontrolled hemoglobin A1c 9% on 08/21/2022 Vitamin D deficiency Surgical History Surgical History Gastric bypass status for obesity (~2001) History of appendectomy History of implantable cardiac defibrillator (ICD) History of Abigail-en-Y gastric bypass 2001 per review of EMR by hospitalist; Patient states performed at [facility] History of total hysterectomy with bilateral salpingo-oophorectomy (BSO) For benign disease History of ventral hernia repair Post-op changes noted on CT Hx of heart artery stent ICD (implantable cardioverter-defibrillator) in place (~2011) Status post panniculectomy Family History Family History Father Heart disease Acute myocardial infarction Arthritis Patient's father is Diabetes mellitus Mother Heart disease Acute myocardial infarction Arthritis Hypertension Diabetes mellitus CHF (congestive heart failure) Obesity Sibling Heart disease Obesity Sibling Family history of malignant neoplasm Social History Social History Social History: Lidia Ortega lives at her home in [place] with her son, Mak. she has another child also. She is retired. She is a former smoker and believes sh
--- NOTE | 2023-06-05 13:11 | PC.NURSE ---
attempted straight catheterization x2 without success. Another RN to attempt when pt gets back from CT scan.
[2023-06-05] MEDS: SODIUM CHLORIDE 0.9% IV 1,000 ML 999 ML IV CONT (13:28)
[2023-06-05 14:27] LABS: Basophils Absolute Auto 0.1 K/mm3 (0.0-0.1); Basophils Percent Auto 0.7 % (0.2-1.2); Eosinophils Percent Auto 0.1 % (0-4.4); Hematocrit 27.2 % (37.0-47.0); Hemoglobin 8.9 g/dL (12.0-15.0); Immature Granulocyte Absolute 0.06 K/mm3 (0.00-0.031); Immature Granulocyte Percent A 0.6 % (0-0.5); Lymphocytes Absolute Auto 0.59 K/mm3 (0.9-3.2); Lymphocytes Percent Auto 5.6 % (18.3-44.2); Mean Corpuscular HGB Conc 32.7 g/dl (32-36); Mean Corpuscular Volume 88.6 fl (80-100); Mean Platelet Volume 8.6 fl (7.4-10.4); Monocytes Absolute Auto 1.1 K/mm3 (0.1-0.6); Monocytes Percent Auto 10.7 % (2.6-8.5); Neutrophils Absolute Auto 8.7 K/mm3 (1.3-6.7); Neutrophils Percent Auto 82.3 % (45.5-73.1); Platelet Count Result 463 k/mm3 (150-375); Red Blood Count 3.07 M/mm3 (4.2-5.4); Red Cell Distribution Width 13.3 % (11.5-14.5); White Blood Count 10.6 K/mm3 (4.5-10.0)
[2023-06-05 14:37] LABS: INR 1.2; Prothrombin Time 15.5 Seconds (11.1-14.7)
[2023-06-05 14:38] LABS: Alanine Aminotransferase 19 U/L (6-35); Albumin Level 3.1 g/dL (3.5-5.1); Alkaline Phosphatase 89 U/L (38-126); Anion Gap 9 mmol/L (8-16); Aspartate Amino Transferase 25 U/L (14-36); Bilirubin,Total 0.6 mg/dL (0.2-1.3); Blood Urea Nitrogen 61 mg/dL (7-17); Calcium 8.8 mg/dL (8.4-10.2); Carbon Dioxide 21 mmol/L (22-30); Chloride 97 mmol/L (98-107); Estimated Glomerular Filt Rate 39; Glucose 147 mg/dL (65-110); Partial Thromboplastin Time 24.9 SECONDS (22.3-36.8); Potassium 3.8 mmol/L (3.4-5.0); Sodium 127 mmol/L (137-145)
[2023-06-05 14:39] LABS: Lactic Acid Reflex 0.6 mmol/L (0.7-2.0)
[2023-06-05 14:43] LABS: Bacteria Urine 4+ /hpf; Need Manual Microscopic Need Manual; Non Pathogenic Casts 0-2; RBC Urine 51-100 /hpf (0-2); Squamous Epithelial Cell Urine Many /hpf (Few); WBC Urine >100 /hpf
[2023-06-05 14:45] LABS: Appearance Urine Turbid (Clear); Bilirubin Urine 1+ (Negative); Blood Urine 3+ (Negative); Glucose Urine UA Negative (Negative); Ketones Urine Trace mg/dL (Negative); Leukocyte Esterase Ur 3+ LEU/UL (Negative); Nitrate Urine Positive (Negative); Protein Urine 3+ mg/dL (Negative); Specific Grav Ur 1.015 (1.001-1.035); Urobilinogen Urine 0.2 mg/dL (<2.0); pH Urine 5.5 (5.0-9.0)
[2023-06-05 14:47] LABS: Color Urine Other (Yellow)
[2023-06-05 14:49] LABS: Add Urine Microscopic? YES
[2023-06-05 15:05] LABS: Influenza A QL RT-PCR Negative (Negative); Influenza B QL RT-PCR Negative (Negative); RSV RNA, RT-PCR Negative (Negative); SARS-CoV-2 RNA PCR Negative (Negative)
[2023-06-05] MEDS: CEFEPIME 1 GM/NS 50 ML 1 GM/50 ML BAG IVPB (16:03)
--- NOTE | 2023-06-05 17:27 | PM.IMHP ---
H&P: HPI History of Present Illness Date/Time: 06/05/23 16:30 Chief Complaint: Altered mental status. Narrative: This is an 82-year-old female with hypertension, hyperlipidemia, insulin-dependent diabetes, iron deficiency anemia, coronary artery disease, congestive heart failure, chronic obstructive pulmonary disease, sleep apnea, and other comorbidities who presented to the emergency department via EMS from her nursing facility for evaluation of altered mental status. She cannot provide an accurate history and a majority the following is obtained via a review of her EMR. She is known to the hospitalist service and has had several admissions since last January. In fact she was discharged from the hospital just 2 days ago at which time she was admitted with sepsis thought to be due to urinary tract infection however her urine culture showed no growth. correction staff sent her in today for evaluation as she seemed to be confused and more weak than usual; son admits that this is been an issue for several months and her condition seems to wax and wane. Since her last admissions she has never returned fully to her baseline and has been worse the past couple of days. She voices no complaints at this time but does grimace when I palpate her suprapubic area. In the ED: She was afebrile on arrival with blood pressures running at the lower end of normal. She has been in a sinus rhythm since arrival with SpO2 in the upper to mid 90s on room air. Labs were significant for a WBC count of 10.6, stable hemoglobin at 8.9, sodium 127, chloride 97, BUN 61, creatinine 1.30, lactic acid 0.6. Urinalysis collected via straight catheterization was positive for 3+ protein, trace ketones, 3+ blood, positive nitrates, 1+ bilirubin, 3+ leukocyte esterase, 51 to 100 RBC, greater than 100 WBC, 4+ bacteria, and many squamous cells. She tested negative for influenza, RSV, and COVID. Brain CT showed bilateral sphenoid sinus disease, cerebellar and cerebral atrophy, and chronic small-vessel ischemic changes but no acute findings. Chest x-ray showed mild elevation the right hemidiaphragm and minimal infiltrate or atelectasis at the right lung base. EKG showed no findings compared to previous tracings. She was given a normal saline bolus as well as a dose of cefepime and vancomycin for suspected urinary tract infection she is being admitted in this setting. It is noted that she has had multiple abnormal urinalyses done recently which have grown mixed genital lacho not thought to be indicative of active UTI. Her last positive urine cultures grew out pansensitive Enterococcus species. Upon further review of her EMR, a CT of the abdomen pelvis done in January 2023 showed moderate bilateral hydroureteronephrosis and prominent inflammatory changes at the bladder and along the ureters and renal collecting system suggestive of chronic outlet obstruction or neurogenic bladder. Moderate to severe bilateral hydroureteronephrosis similar to previous exam was also noted on CT taken 05/26/2023. This is not been investigated as far as I can tell. Review of Systems Review of Systems: Review of systems was attempted but limited due to her confusion. [facility] Past Medical History Medical History Anxiety Arthritis B12 deficiency Chronic anemia Chronic constipation Chronic hyponatremia Chronic kidney disease, stage 3 Chronic lower back pain Closed fracture of right humerus (09/2019) Combined systolic and diastolic congestive heart failure Echocardiogram 01/2022: EF 35-40%, grade 1 diastolic dysfunction, technically difficult study. COPD with asthma Coronary artery disease COVID-19 (~01/2022) Diabetic peripheral neuropathy Eczema Gallstone pancreatitis (02/04/22) Gastric ulcer Resulting in GI bleed 01/2022 Gout Hyperlipidemia Hypertension Insomnia Insulin dependent diabetes mellitus Ischemic cardiomyopathy Mitral regurgitation CONTRERAS (no
--- NOTE | 2023-06-05 18:00 | ADMGEN ---
This patient, Lidia Ortega, was admitted to 3 [facility] Surg Room 305-01. Patient/family oriented to hospital policies and general routines including ID bracelet, bed and alarms, visiting hours, pain management, procedures, bathroom and other care routines, personal items, smoking policy, room service/diet, and visiting hours. Information on how to activate the Rapid Response Team has been discussed. Patient/Family are encouraged to report perceived risks to care and to ask questions if they do not understand what they are told or what they should do.
[2023-06-05 20:27] LABS: Glucose Point of Care 130 mg/dl (65-105)
[2023-06-05] MEDS: SODIUM CHLORIDE 0.9% IV 1,000 ML 125 ML IV CONT (20:34)
[2023-06-05] MEDS: VANCOMYCIN 1,000 MG/NS 250 ML 1,000 MG/250 ML BAG 250 MG IVPB (20:39)
[2023-06-06] MEDS: PIPERACILLN/TAZ 3.375GM/NS50ML 3.375 GM/50 ML BAG IVPB ×4 (00:15→17:47)
[2023-06-06] MEDS: ROSUVASTATIN 10 MG TABLET 20 MG PO ×2 (00:15→20:34)
[2023-06-06 00:33] LABS: Iron 22 ug/dL (37-170)
[2023-06-06 00:43] LABS: Percent Iron Saturation 12 % (20-50)
[2023-06-06 01:05] LABS: Thyroid Stimulating Hormone Reflex 0.941 uIU/mL (0.465-4.68)
[2023-06-06 02:09] LABS: Folic Acid > 20.0 ng/mL (2.76->20); Vitamin B12 > 1000.0 pg/mL (239-931)
[2023-06-06 05:00] VITALS: BP 96/40; PULSE 77; RESP 18; TEMP 37.3; O2SAT 100
[2023-06-06 05:23] LABS: Anion Gap 11 mmol/L (8-16); Blood Urea Nitrogen 57 mg/dL (7-17); Calcium 8.8 mg/dL (8.4-10.2); Carbon Dioxide 17 mmol/L (22-30); Chloride 101 mmol/L (98-107); Estimated CRCL calculation 26 ml/min; Estimated Glomerular Filt Rate 39; Glucose 116 mg/dL (65-110); Potassium 4.2 mmol/L (3.4-5.0); Sodium 129 mmol/L (137-145)
[2023-06-06] MEDS: SODIUM CHLORIDE 0.9% IV 1,000 ML 125 ML IV CONT ×2 (05:43→17:26)
[2023-06-06 06:03] LABS: Ammonia < 9 umol/L (9-30)
[2023-06-06 06:25] LABS: Hematocrit 25.3 % (37.0-47.0); Hemoglobin 7.8 g/dL (12.0-15.0); Mean Corpuscular HGB Conc 30.8 g/dl (32-36); Mean Corpuscular Hemoglobin 28.3 pg (26-34); Mean Corpuscular Volume 91.7 fl (80-100); Mean Platelet Volume 8.5 fl (7.4-10.4); Platelet Count Result 408 k/mm3 (150-375); Red Blood Count 2.76 M/mm3 (4.2-5.4); Red Cell Distribution Width 13.3 % (11.5-14.5); White Blood Count 8.2 K/mm3 (4.5-10.0)
[2023-06-06 06:41] LABS: Anion Gap 2 mmol/L (8-16); Blood Urea Nitrogen 50 mg/dL (7-17); Calcium 8.4 mg/dL (8.4-10.2); Carbon Dioxide 24 mmol/L (22-30); Chloride 104 mmol/L (98-107); Estimated CRCL calculation 26 ml/min; Estimated Glomerular Filt Rate 39; Glucose 115 mg/dL (65-110); Magnesium 2.2 mg/dL (1.6-2.3); Potassium 3.7 mmol/L (3.4-5.0); Sodium 130 mmol/L (137-145)
[2023-06-06 08:02] LABS: Glucose Point of Care 110 mg/dl (65-105)
[2023-06-06 12:05] LABS: Glucose Point of Care 118 mg/dl (65-105)
[2023-06-06 13:03] VITALS: BMI 23.3
[2023-06-06 13:14] VITALS: PULSE 52
[2023-06-06] MEDS: ENOXAPARIN 30 MG/0.3 ML SYRINGE SUB-Q (13:14)
[2023-06-06 14:00] VITALS: BP 107/39; PULSE 71; RESP 14; TEMP 36.7; O2SAT 99
--- NOTE | 2023-06-06 15:28 | PCSTNOTE ---
Please refer to the Bedside Swallow Evaluation in the EMR. Please note, silent aspiration cannot be ruled out at bedside.
--- NOTE | 2023-06-06 16:22 | PM.IMPN ---
Progress Note: A&P Assessment and Plan (1) Hydroureteronephrosis: Code(s): N13.30 - Unspecified hydronephrosis Status: Acute (2) Chronic anemia: Code(s): D64.9 - Anemia, unspecified Status: Acute (3) Chronic hyponatremia: Code(s): E87.1 - Hypo-osmolality and hyponatremia Status: Acute (4) Abnormal urinalysis: Code(s): R82.90 - Unspecified abnormal findings in urine Status: Acute (5) Altered mental status: Code(s): R41.82 - Altered mental status, unspecified Status: Acute (6) Insulin dependent diabetes mellitus: Status: Acute (7) Chronic kidney disease, stage 3: Code(s): N18.30 - Chronic kidney disease, stage 3 unspecified Status: Acute (8) Sepsis secondary to UTI: Code(s): A41.9 - Sepsis, unspecified organism; N39.0 - Urinary tract infection, site not specified Status: Acute Plan # acute metabolic encephalopathy -CT head negative, UA concerning for in infection, flu negative, RSV negative, COVID negative. Ammonia negative, LA 0.6 -patient had modified barium swallow which was normal, recommendation from speech therapy is small bite size diet # urinary tract infection # bilateral hydroureteronephrosis -possibly secondary to chronic urinary retention. Previously had Enterococcus UTI -antibiotics: Zosyn (received dose of vancomycin and cefepime in the ED) -IV fluids normal saline -patient has had recurrent numerous infections -renal ultrasound shows moderate left hydronephrosis and minimal right hydronephrosis, prominent disuse wall thickening of the bladder -patient may have chronic retention leading to recurrent infections # chronic conditions -hyperlipidemia, CAD: Crestor -essential hypertension: Spironolactone, lisinopril, metoprolol, Lasix -insulin dependent type 2 diabetes: Glargine 25 units q.h.s., aspart 10 units t.i.d. a.c., sliding-scale insulin, Accu-Cheks a.c. HS, hypoglycemia protocol, A1c 8.8 -heart failure reduced ejection fraction: Lasix, spironolactone, acei, beta-shabnam -iron deficiency anemia: Ferrous sulfate, B12, hemoglobin 7.8 will transfuse if hemoglobin less than 7 -CKD 3B: At baseline creatinine 1.3, avoid nephrotoxic agent Diet: Diabetic diet, soft and bite size NDD6 diet DVT prophylaxis: Lovenox Code status: Full code Disposition: [facility] greater than 3 days Time Spent With Patient Time: 35 minutes Subjective Date/time seen: 06/06/23 16:22 Interval history: Patient seen examined. She is very somnolent this morning. She was seen by speech therapy with recommendation for soft by size level 6 diet with regular liquids. Patient has abnormal renal ultrasound showing hydronephrosis, consult Urology. Patient otherwise has chronic findings of chronic hyponatremia, CKD stage IIIB. Review of Systems Review of Systems: Unable to obtain due to mentation Exam Narrative: - GENERAL: Somnolent elderly woman in no acute distress - EYES: EOMI. Anicteric. - HENT: Moist mucous membranes. - LUNGS: Clear to auscultation bilaterally, no wheezing, rhonchi, or rales. - CARDIOVASCULAR: Regular rate and rhythm. No murmur. - ABDOMEN: Soft, non-tender and non-distended. - EXTREMITIES: No edema. Peripheral pulses 2+ - NEUROLOGIC: Unable to assess - PSYCHIATRIC: Difficult to arouse, unable to assess orientation - SKIN: No rashes or lesions. Warm. Objective Data Vital Signs Vital Signs: Vital Signs - 24 hr 06/05/23 18:20 06/05/23 20:00 06/05/23 20:20 Temperature 36.5 C 37.6 C H Pulse Rate 68 90 Respiratory Rate 20 18 Blood Pressure 110/58 L 122/45 L Pulse Oximetry 96 98 Oxygen Delivery Room Air 06/06/23 05:00 06/06/23 08:00 06/06/23 13:14 Temperature 37.3 C Pulse Rate 77 52 L Respiratory Rate 18 Blood Pressure 96/40 L Pulse Oximetry 100 Oxygen Delivery Room Air Intake/Output Intake/Output: Intake & Output 06/02
[2023-06-06 16:33] LABS: Glucose Point of Care 138 mg/dl (65-105)
[2023-06-06] MEDS: FERROUS SULFATE 325 MG TABLET DR PO (17:48)
[2023-06-06 20:00] VITALS: BP 134/48; PULSE 71; RESP 16; TEMP 36.2; O2SAT 98
[2023-06-06 20:25] LABS: Glucose Point of Care 167 mg/dl (65-105)
[2023-06-06] MEDS: INSULIN GLARGINE (*BKC) 100 UNITS/ML 25 UNITS SUB-Q (20:35)
[2023-06-06] MEDS: ACETAMINOPHEN 325 MG TABLET 650 MG PO (21:59)
[2023-06-07] MEDS: PIPERACILLN/TAZ 3.375GM/NS50ML 3.375 GM/50 ML BAG IVPB ×4 (00:11→17:30)
[2023-06-07] MEDS: SODIUM CHLORIDE 0.9% IV 1,000 ML 125 ML IV CONT ×4 (02:27→21:14)
[2023-06-07 04:45] VITALS: BP 134/51; PULSE 59; RESP 16; TEMP 36.2; O2SAT 99
[2023-06-07 06:41] LABS: Hematocrit 26.7 % (37.0-47.0); Mean Corpuscular Hemoglobin 28.4 pg (26-34); Mean Corpuscular Volume 94.7 fl (80-100); Mean Platelet Volume 8.4 fl (7.4-10.4); Platelet Count Result 354 k/mm3 (150-375); Red Blood Count 2.82 M/mm3 (4.2-5.4); Red Cell Distribution Width 13.7 % (11.5-14.5); White Blood Count 6.6 K/mm3 (4.5-10.0)
[2023-06-07 07:43] LABS: Anion Gap 3 mmol/L (8-16); Blood Urea Nitrogen 36 mg/dL (7-17); Calcium 8.3 mg/dL (8.4-10.2); Carbon Dioxide 24 mmol/L (22-30); Chloride 109 mmol/L (98-107); Estimated CRCL calculation 28 ml/min; Estimated Glomerular Filt Rate 43; Glucose 97 mg/dL (65-110); Magnesium 2.3 mg/dL (1.6-2.3); Potassium 3.6 mmol/L (3.4-5.0); Sodium 136 mmol/L (137-145)
[2023-06-07] MEDS: CYANOCOBALAMIN 500 MCG TABLET PO (08:30)
[2023-06-07] MEDS: FERROUS SULFATE 325 MG TABLET DR PO ×2 (08:30→17:30)
[2023-06-07] MEDS: DOCUSATE SODIUM 100 MG CAPSULE PO ×2 (08:30→17:30)
[2023-06-07] MEDS: ENOXAPARIN 30 MG/0.3 ML SYRINGE SUB-Q (08:34)
[2023-06-07 08:42] VITALS: BP 125/42; PULSE 60; RESP 16; O2SAT 95
[2023-06-07 08:44] VITALS: PULSE 60
[2023-06-07 08:54] LABS: Glucose Point of Care 89 mg/dl (65-105)
--- NOTE | 2023-06-07 11:14 | P.CDI_ITS ---
Moderate protein calorie malnutrition CDI Query Clarification Request BMI 23.3 Nutritional Diagnostic Statement Moderate protein calorie malnutrition related to inadequate energy intake as evidenced by reduced po intake of less than 75% of needs for greater than 1 m onth, -18% wt loss x 3 months, and NFPE findings for moderate subcutaneous fat loss and moderate muscle wasting. Please refer to the comprehensive nutrition assessment for further information. Please clarify severity of protein calorie malnutrition if known: * Mild * Moderate * Severe * Other/ unspecified
--- NOTE | 2023-06-07 11:27 | PCNFU ---
Nutrition Follow-Up Complete: Moderate protein calorie malnutrition related to inadequate energy intake as evidenced by reduced po intake of less than 75% of needs for greater than 1 month, -18% wt loss x 3 months, and NFPE findings for moderate subcutaneous fat loss and moderate muscle wasting. Goal:Meet estimated needs Pt current nutrition is Diabetic, soft and bite sized level 6. Nutrition recommendation: Add Glucerna shakes BID Last recorded weight is 59.9 kg. Bowel Motility: +BM 06/06 Labs Reviewed: Hgb:7.8, HCT:25.3, NA:130, GFR:39, BUN:50, Cr:1.3 Meds Noted: lovenox, colace, lasix, novolog/lantus Skin: Stage III to right buttocks, stage III to sacrum Additional Notes: Pt diet advanced to soft and bite sized level 6, diabetic following MBS and speech recommendations. Intake is about 25% at this time. Will send KERON BID for wound healing and Glucerna shakes BID for supplement. Monitor intake, wt, labs. Follow up in 3 days
[2023-06-07 12:18] LABS: Glucose Point of Care 87 mg/dl (65-105)
[2023-06-07 14:00] VITALS: BP 104/37; PULSE 66; RESP 14; TEMP 36.1; O2SAT 100
--- NOTE | 2023-06-07 16:11 | WPDURCON ---
Assessment and Plan Assessment and plan (1) Hydroureteronephrosis: Code(s): N13.30 - Unspecified hydronephrosis Status: Acute Assessment and Plan: Chronic finding since 01/2023. Etiology unclear. No evidence of urinary retention. Will check random bladder scan to ensure she is emptying appropriately. Would recommend yoo catheter if PVR >300. Will obtain lasix renal scan for further assessment. Her renal function is stable at this time. Urology Consult Note HPI Date Seen: 06/07/23 Requesting Physician: Abdias Wall MD Primary Care Provider: Mary Anne Alfaro APRN Consult Narrative Narrative: Lidia Ortega is a 82 year old female with a history of urinary retention currently admitted for altered mental status who is being seen in consultation for evaluation of bilateral hydronephrosis. This was initially noted on a CT of the abdomen/pelvis from 01/2023 which showed moderate bilateral hydronephrosis. She then had a CT 04/2023 which demonstrated moderate-severe bilateral hydronephrosis. Renal US completed this admission shows moderate left and minimal right hydronephrosis with diffuse thickening of decompressed bladder. She is asymptomatic. Reports incontinence at baseline. Denies incomplete emptying or straining to void. Denies dysuria, hematuria, suprapubic pain, flank pain. WBC is within normal limits. Creatinine is 1.2, consistent with her baseline. Urine culture collected on admission is negative. Review of Systems Review of Systems: All systems reviewed & are unremarkable except as noted in HPI and below PMFSH Past Medical History Medical History (Updated 06/06/23 @ 16:45 by Elvi Arroyo RN) Anxiety Arthritis B12 deficiency Chronic anemia Chronic constipation Chronic hyponatremia Chronic kidney disease, stage 3 Chronic lower back pain Closed fracture of right humerus (09/2019) Combined systolic and diastolic congestive heart failure Echocardiogram 01/2022: EF 35-40%, grade 1 diastolic dysfunction, technically difficult study. COPD with asthma Coronary artery disease COVID-19 (~01/2022) Diabetic peripheral neuropathy Eczema Gallstone pancreatitis (02/04/22) Gastric ulcer Resulting in GI bleed 01/2022 Gout Hyperlipidemia Hypertension Insomnia Insulin dependent diabetes mellitus Ischemic cardiomyopathy Mitral regurgitation CONTRERAS (nonalcoholic steatohepatitis) Noted on ultrasound in 2011 NSTEMI (non-ST elevated myocardial infarction) Obstructive sleep apnea Mostly noncompliant with CPAP use Osteoarthritis Peripheral artery disease Portal vein thrombosis (01/2022) Not treated due to active GI bleed of the time Reflux esophagitis Seasonal allergies Type 2 diabetes mellitus Historically uncontrolled hemoglobin A1c 9% on 08/21/2022 Vitamin D deficiency Surgical History Surgical History Gastric bypass status for obesity (~2001) History of appendectomy History of coronary artery stent placement History of implantable cardiac defibrillator (ICD) History of Abigail-en-Y gastric bypass 2001 per review of EMR by hospitalist; Patient states performed at [place] History of total hysterectomy with bilateral salpingo-oophorectomy (BSO) For benign disease History of ventral hernia repair Post-op changes noted on CT ICD (implantable cardioverter-defibrillator) in place (~2011) Status post panniculectomy Family History Family History Father Heart disease Acute myocardial infarction Arthritis Patient's father is Diabetes mellitus Mother Heart disease Acute myocardial infarction Arthritis Hypertension Diabetes mellitus CHF (congestive heart failure) Obesity Sibling Heart disease Obesity Sibling Family history of malignant neoplasm Social History Social History (Reviewed 06/05/23 @ 23:47 by Molly Jones,
[2023-06-07 17:14] LABS: Glucose Point of Care 112 mg/dl (65-105)
--- NOTE | 2023-06-07 17:26 | PM.IMPN ---
Progress Note: A&P Assessment and Plan (1) Hydroureteronephrosis: Code(s): N13.30 - Unspecified hydronephrosis Status: Acute (2) Chronic anemia: Code(s): D64.9 - Anemia, unspecified Status: Acute (3) Abnormal urinalysis: Code(s): R82.90 - Unspecified abnormal findings in urine Status: Acute (4) Altered mental status: Code(s): R41.82 - Altered mental status, unspecified Status: Acute Plan Persistent encephalopathy. This may be due to UTI although the culture was negative and the abnormal analysis was contaminated. This may be progression of underlying chronic neurocognitive decline. An MRI may be beneficial tomorrow if she has not improved. She otherwise does not appear to be in sepsis. Continue Zosyn for now. Full code. DVT prophylaxis with Lovenox. Stable. Subjective Date/time seen: 06/07/23 17:26 Interval history: No acute overnight events. The patient has no complaints. Review of Systems Review of Systems: All systems reviewed & are unremarkable except as noted in HPI and below (Subjective) Exam Const: General: comfortable and no acute distress Other: A&O x2 Resp: Effort & Inspection: normal respiratory effort Auscultation: clear to auscultation bilaterally Cardio: Rate: regular rate Rhythm: regular rhythm GI: GI Palp: Yes Soft to palpation Extrem: General: no edema Objective Data Vital Signs Vital Signs: Vital Signs - 24 hr 06/06/23 20:00 06/06/23 20:00 06/07/23 04:45 Temperature 97.1 F L 97.1 F L Pulse Rate 71 59 L Respiratory Rate 16 16 Blood Pressure 134/48 L 134/51 L Pulse Oximetry 98 99 Oxygen Delivery Room Air 06/07/23 08:42 06/07/23 08:44 06/07/23 08:00 Temperature Pulse Rate 60 60 Respiratory Rate 16 Blood Pressure 125/42 L Pulse Oximetry 95 Oxygen Delivery Room Air 06/07/23 14:00 Temperature 97 F L Pulse Rate 66 Respiratory Rate 14 Blood Pressure 104/37 L Pulse Oximetry 100 Oxygen Delivery Intake/Output Intake/Output: Intake & Output 06/04/23 06/05/23 06/06/23 06/07/23 22:59 23:59 23:59 23:59 Intake Total 3150 2220 Output Total 1050 500 Balance 2100 1720 Meds/Results Medications: Active Medications Generic Name Dose Route Start Last Admin Trade Name Freq PRN Reason Stop Dose Admin Acetaminophen 650 mg 06/05/23 22:59 06/06/23 21:59 Acetaminophen 325 Mg Tablet PO 650 mg Q6H PRN Administration Mild Pain (1-3) or Fever Cyanocobalamin 500 mcg 06/06/23 09:00 06/07/23 08:30 Cyanocobalamin 500 Mcg Tablet PO 500 mcg DAILY TESFAYE Administration Dextrose 12.5 gm 06/05/23 22:59 Dextrose 50% 25 Gm/50 Ml Syringe IV PUSH PRN PRN Hypoglycemia Protocol Docusate Sodium 100 mg 06/06/23 09:00 06/07/23 08:30 Docusate Sodium 100 Mg Capsule PO 100 mg BID TESFAYE Administration Enoxaparin Sodium 30 mg 06/06/23 09:00 06/07/23 08:34 Enoxaparin 30 Mg/0.3 Ml Syringe SUB-Q 30 mg DAILY TESFAYE Administration Ferrous Sulfate 325 mg 06/06/23 09:00 06/07/23 08:30 Ferrous Sulfate [address] PO 325 mg BID TESFAYE Administration Furosemide 40 mg 06/06/23 09:00 06/07/23 08:43 Furosemide 40 Mg Tablet PO Not Given DAILY TESFAYE Glucagon 1 mg 06/05/23 22:59 Glucagon For Inj 1 Mg Vial IM PRN PRN Hypoglycemia Protocol Glucose 15 gm 06/05/23 22:59 Glucose Oral Gel 15 Gm Of Glucse In 37.5 Gm Tube PO PRN PRN Hypoglycemia Protocol Sodium Chloride 1,000 mls @ 125 mls/hr 06/05/23 15:20 06/07/23 08:29 Normal Saline Iv IV CONT 125 mls/hr .Q8H TESFAYE Administration Dextrose 1,000 mls @ 100 mls/hr 06/05/23 22:59 Dextrose 5% 1,000 Ml IVPB PRN PRN Hypoglycemia Protocol Piperacillin/Tazobactam/Dextrose 3.375 gm in 50 mls @ 100 mls/hr 06/06/23 00:00 06/07/23 11:51 Zosyn 3.375 Gm/Ns 50 Ml IVPB 100 mls/hr Q6H TESFAYE Administration Insuli
[2023-06-07 19:45] VITALS: BP 132/40; PULSE 62; RESP 24; TEMP 36.4; O2SAT 97
[2023-06-07 20:09] LABS: Glucose Point of Care 138 mg/dl (65-105)
[2023-06-07] MEDS: INSULIN GLARGINE (*BKC) 100 UNITS/ML 25 UNITS SUB-Q (21:08)
[2023-06-07] MEDS: ROSUVASTATIN 10 MG TABLET 20 MG PO (21:09)
[2023-06-08] MEDS: PIPERACILLN/TAZ 3.375GM/NS50ML 3.375 GM/50 ML BAG IVPB ×3 (00:10→12:25)
[2023-06-08] MEDS: SODIUM CHLORIDE 0.9% IV 1,000 ML 125 ML IV CONT (05:33)
[2023-06-08 06:00] VITALS: BP 129/42; PULSE 61; RESP 18; TEMP 36.2; O2SAT 97
[2023-06-08 06:59] LABS: Basophils Absolute Auto 0.1 K/mm3 (0.0-0.1); Basophils Percent Auto 0.7 % (0.2-1.2); Eosinophils Absolute Auto 0.2 K/mm3 (0-0.3); Eosinophils Percent Auto 2.1 % (0-4.4); Hematocrit 25.7 % (37.0-47.0); Hemoglobin 7.7 g/dL (12.0-15.0); Immature Granulocyte Absolute 0.03 K/mm3 (0.00-0.031); Immature Granulocyte Percent A 0.4 % (0-0.5); Lymphocytes Absolute Auto 0.91 K/mm3 (0.9-3.2); Lymphocytes Percent Auto 12.7 % (18.3-44.2); Mean Corpuscular Hemoglobin 28.2 pg (26-34); Mean Corpuscular Volume 94.1 fl (80-100); Mean Platelet Volume 8.7 fl (7.4-10.4); Monocytes Absolute Auto 0.8 K/mm3 (0.1-0.6); Monocytes Percent Auto 10.5 % (2.6-8.5); Neutrophils Absolute Auto 5.3 K/mm3 (1.3-6.7); Neutrophils Percent Auto 73.6 % (45.5-73.1); Platelet Count Result 422 k/mm3 (150-375); Red Blood Count 2.73 M/mm3 (4.2-5.4); Red Cell Distribution Width 13.5 % (11.5-14.5); White Blood Count 7.2 K/mm3 (4.5-10.0)
[2023-06-08 07:18] LABS: Anion Gap 4 mmol/L (8-16); Blood Urea Nitrogen 24 mg/dL (7-17); Carbon Dioxide 19 mmol/L (22-30); Chloride 109 mmol/L (98-107); Estimated CRCL calculation 33 ml/min; Estimated Glomerular Filt Rate 53; Glucose 73 mg/dL (65-110); Magnesium 2.1 mg/dL (1.6-2.3); Potassium 3.5 mmol/L (3.4-5.0); Sodium 132 mmol/L (137-145)
[2023-06-08 07:20] LABS: Glucose Point of Care 71 mg/dl (65-105)
[2023-06-08 07:39] LABS: Procalcitonin 0.2 ng/mL
[2023-06-08] MEDS: FUROSEMIDE INJ 40 MG/4 ML VIAL IV PUSH (09:09)
[2023-06-08] MEDS: SPIRONOLACTONE 25 MG TABLET PO (09:56)
[2023-06-08] MEDS: FERROUS SULFATE 325 MG TABLET DR PO ×2 (09:56→17:13)
[2023-06-08] MEDS: DOCUSATE SODIUM 100 MG CAPSULE PO ×2 (09:56→17:13)
[2023-06-08] MEDS: lisinopriL 10 MG TABLET PO (09:56)
[2023-06-08] MEDS: CYANOCOBALAMIN 500 MCG TABLET PO (09:56)
[2023-06-08 09:57] VITALS: PULSE 59
[2023-06-08] MEDS: METOPROLOL SUCCINATE EXT REL 50 MG TABCR PO (09:57)
[2023-06-08] MEDS: ENOXAPARIN 40 MG/0.4 ML SYRINGE SUB-Q (10:04)
[2023-06-08 11:38] LABS: Glucose Point of Care 165 mg/dl (65-105)
--- NOTE | 2023-06-08 12:55 | WPDUROPN2 ---
Progress Note: A&P Assessment and Plan (1) Hydroureteronephrosis: Code(s): N13.30 - Unspecified hydronephrosis Status: Acute Assessment and Plan: Chronic finding since 01/2023. No evidence of urinary retention, random bladder scan is low. Lasix renal scan completed today shows asymmetric renal function with delayed clearance from both kidneys, more prominent on the left. T 1/2 of left kidney 52 minutes, T 1/2 right kidney 29. Likely has chronic dilation. Given stable renal function, no need for further evaluation/intervention at this time. Plan Urology will sign off. Please call with any questions. Subjective Subjective Date/Time Seen: 06/08/23 12:55 Interval history: Lidia is doing fair today. She complains of buttock pain but otherwise has no concerns. Denies suprapubic pain nausea fever, chills. Pure wick collecting system is draining clear yellow urine. Creatinine is within normal limits, 1.0. Review of Systems Review of Systems: All systems reviewed & are unremarkable except as noted in HPI and below Exam Narrative: General: Awake, alert, comfortable, no acute distress HEENT: Normocephalic, atraumatic, sclerae anicteric Respiratory: Normal respiratory effort, no accessory muscle use Abdomen: Nondistended, soft, nontender Skin: Normal coloration, warm and dry Neurologic: No focal neuro deficits noted Psychiatric: Appropriate mood and affect, judgment and insight intact Objective Data Vital Signs Vital Signs: Vital Signs - 24 hr 06/07/23 14:00 06/07/23 19:45 06/08/23 06:00 Temperature 97 F L 97.5 F L 97.1 F L Pulse Rate 66 62 61 Respiratory Rate 14 24 H 18 Blood Pressure 104/37 L 132/40 L 129/42 L Pulse Oximetry 100 97 97 Oxygen Delivery 06/08/23 08:00 06/08/23 09:57 Temperature Pulse Rate 59 L Respiratory Rate Blood Pressure Pulse Oximetry Oxygen Delivery Room Air Intake/Output Intake/Output: Intake & Output 06/05/23 06/06/23 06/07/23 06/08/23 23:59 23:59 23:59 23:59 Intake Total 3150 3884.6 3122 Output Total 5523 418 7641 Balance 2100 3384.6 1972 Meds/Results Medications: Active Medications Generic Name Dose Route Start Last Admin Trade Name Freq PRN Reason Stop Dose Admin Acetaminophen 650 mg 06/05/23 22:59 06/06/23 21:59 Acetaminophen 325 Mg Tablet PO 650 mg Q6H PRN Administration Mild Pain (1-3) or Fever Cyanocobalamin 500 mcg 06/06/23 09:00 06/08/23 09:56 Cyanocobalamin 500 Mcg Tablet PO 500 mcg DAILY TESFAYE Administration Dextrose 12.5 gm 06/05/23 22:59 Dextrose 50% 25 Gm/50 Ml Syringe IV PUSH PRN PRN Hypoglycemia Protocol Docusate Sodium 100 mg 06/06/23 09:00 06/08/23 09:56 Docusate Sodium 100 Mg Capsule PO 100 mg BID TESFAYE Administration Enoxaparin Sodium 40 mg 06/08/23 09:00 06/08/23 10:04 Enoxaparin 40 Mg/0.4 Ml Syringe SUB-Q 40 mg DAILY TESFAYE Administration Ferrous Sulfate 325 mg 06/06/23 09:00 06/08/23 09:56 Ferrous Sulfate [address] PO 325 mg BID TESFAYE Administration Furosemide 40 mg 06/06/23 09:00 06/08/23 09:54 Furosemide 40 Mg Tablet PO Not Given DAILY TESFAYE Glucagon 1 mg 06/05/23 22:59 Glucagon For Inj 1 Mg Vial IM PRN PRN Hypoglycemia Protocol Glucose 15 gm 06/05/23 22:59 Glucose Oral Gel 15 Gm Of Glucse In 37.5 Gm Tube PO PRN PRN Hypoglycemia Protocol Sodium Chloride 1,000 mls @ 125 mls/hr 06/05/23 15:20 06/08/23 05:33 Normal Saline Iv IV CONT 125 mls/hr .Q8H TESFAYE Administration Dextrose 1,000 mls @ 100 mls/hr 06/05/23 22:59 Dextrose 5% 1,000 Ml IVPB PRN PRN Hypoglycemia Protocol Piperacillin/Tazobactam/Dextrose 3.375 gm in 50 mls @ 100 mls/hr 06/06/23 00:00 06/08/23 12:25 Zosyn 3.375 Gm/Ns 50 Ml IVPB 100 mls/hr Q6H TESFAYE Administration Insulin Aspart 3 - 6 units 06/06/23 08:00 06/08/23 12:02 Insulin Aspart (*Bkc) 100 Unit
[2023-06-08 13:55] VITALS: BP 100/32; PULSE 53; RESP 18; TEMP 36.5; O2SAT 100
--- NOTE | 2023-06-08 14:04 | PM.IMPN ---
Progress Note: A&P Assessment and Plan (1) Hydroureteronephrosis: Code(s): N13.30 - Unspecified hydronephrosis Status: Acute (2) Chronic anemia: Code(s): D64.9 - Anemia, unspecified Status: Acute (3) Abnormal urinalysis: Code(s): R82.90 - Unspecified abnormal findings in urine Status: Acute (4) Altered mental status: Code(s): R41.82 - Altered mental status, unspecified Status: Acute Plan 82-year-old female resident of [facility] with past medical history COPD, chronic iron deficiency anemia, anxiety, CKD stage 3, chronic hyponatremia, chronic lower back pain, combined systolic-diastolic heart failure, CAD status post NSTEMI, peptic ulcer disease, gout, hypertension, hyperlipidemia, insulin-dependent diabetes mellitus, ischemic cardiomyopathy, non alcoholic steatohepatitis, SARAH, OA, peripheral artery disease, portal vein thrombosis, vitamin-D deficiency presents from her nursing facility for altered mental status. The patient has been in and out of admission most recently admitted for sepsis thought to be due to UTI however urine culture show no growth. Family notes that her mental status has been waxing waning over time. She has never returned to baseline panel worse just prior to admission. This time she is ultimately admitted on 06/05/2023 for altered mental status thought to be due to urinary tract infection. Acute encephalopathy -no concrete evidence of toxic/infectious etiology. This may very well be a progression of underlying chronic neurocognitive decline. She would benefit from full evaluation with neuropsychiatry. CT head on admission demonstrating cerebral and cerebellar atrophy along with cerebral atherosclerosis and chronic small-vessel ischemic changes which also more so supports dementia of vascular origin. None the less, she has improved in on 06/07 is back to her apparent baseline status. Continue to monitor. Dispo pending back to nursing facility. The patient does not want to work with physical therapy. Urinary tract infection -Zosyn discontinued. Urinalysis on admission contaminated. Urine culture did not grow anything. Leukocytosis is resolved and procalcitonin is within normal limits. Unclear if there was infectious etiology although she was treated. Bilateral hydroureteronephrosis -renal ultrasound on 06/05 demonstrating moderate left hydronephrosis and minimal right hydronephrosis. Urology consulted. Nuclear medicine Lasix renal scan conducted on 06/07 demonstrating asymmetric renal function which is at the upper limits of normal with left kidney contributing only 41% total renal function. No further recommendations by Urology. Chronic iron deficiency anemia -her hemoglobin has drifted down slowly. She has had large volume fluid resuscitation so that will be stopped. Chronic hyponatremia -stable Insulin-dependent diabetes mellitus -patient is not eating basal bolus insulin held. Sliding scale continues. Accu-Cheks a.c. HS with hypoglycemia protocol Chronic kidney disease stage 3 -stable Combined systolic-diastolic heart failure -compensated. Discontinue fluid resuscitation. FEN: Saline lock IV. Heart healthy cardiac diet GI prophylaxis: Not indicated DVT prophylaxis: Lovenox 40 mg q.day Lines: Peripheral IV Code Status: Full code Dispo: Stable Subjective Date/time seen: 06/08/23 14:04 Interval history: No acute overnight events. The patient is more alert and talkative today. She has no complaints. Review of Systems Review of Systems: All systems reviewed & are unremarkable except as noted in HPI and below (Subjective) Exam Const: General: comfortable and no acute distress Other: A&O x3. Eyes: Pupils: Equal, round and reactive pupils present Resp: Effort & Inspection: normal respiratory effort Auscultation: clear to auscultation bilaterally Cardio: Rhythm: regular rhythm GI: GI Palp: Yes Soft to palp
[2023-06-08 16:34] LABS: Glucose Point of Care 115 mg/dl (65-105)
[2023-06-08 20:00] VITALS: PULSE 53; RESP 18; O2SAT 100
[2023-06-08 20:40] VITALS: BP 132/55; PULSE 60; RESP 18; TEMP 36.5; O2SAT 96
[2023-06-08 20:52] LABS: Glucose Point of Care 162 mg/dl (65-105)
[2023-06-08] MEDS: ROSUVASTATIN 10 MG TABLET 20 MG PO (22:16)
[2023-06-09 04:55] VITALS: BP 151/54; PULSE 68; RESP 18; TEMP 36.6; O2SAT 100
[2023-06-09 07:22] LABS: Basophils Percent Auto 0.6 % (0.2-1.2); Eosinophils Absolute Auto 0.2 K/mm3 (0-0.3); Eosinophils Percent Auto 2.1 % (0-4.4); Hematocrit 25.2 % (37.0-47.0); Hemoglobin 7.6 g/dL (12.0-15.0); Immature Granulocyte Absolute 0.04 K/mm3 (0.00-0.031); Immature Granulocyte Percent A 0.6 % (0-0.5); Lymphocytes Absolute Auto 0.92 K/mm3 (0.9-3.2); Mean Corpuscular HGB Conc 30.2 g/dl (32-36); Mean Corpuscular Hemoglobin 27.5 pg (26-34); Mean Corpuscular Volume 91.3 fl (80-100); Mean Platelet Volume 8.8 fl (7.4-10.4); Monocytes Absolute Auto 0.8 K/mm3 (0.1-0.6); Monocytes Percent Auto 10.6 % (2.6-8.5); Neutrophils Absolute Auto 5.2 K/mm3 (1.3-6.7); Neutrophils Percent Auto 73.1 % (45.5-73.1); Platelet Count Result 386 k/mm3 (150-375); Red Blood Count 2.76 M/mm3 (4.2-5.4); Red Cell Distribution Width 13.6 % (11.5-14.5); White Blood Count 7.1 K/mm3 (4.5-10.0)
[2023-06-09 07:30] LABS: Anion Gap 4 mmol/L (8-16); Blood Urea Nitrogen 22 mg/dL (7-17); Calcium 8.2 mg/dL (8.4-10.2); Carbon Dioxide 24 mmol/L (22-30); Chloride 105 mmol/L (98-107); Estimated CRCL calculation 33 ml/min; Estimated Glomerular Filt Rate 53; Glucose 101 mg/dL (65-110); Magnesium 1.9 mg/dL (1.6-2.3); Potassium 3.1 mmol/L (3.4-5.0); Sodium 133 mmol/L (137-145)
[2023-06-09 08:00] VITALS: PULSE 68; RESP 18; O2SAT 100
[2023-06-09 08:02] LABS: Glucose Point of Care 105 mg/dl (65-105)
[2023-06-09] MEDS: METOPROLOL SUCCINATE EXT REL 50 MG TABCR PO (09:16)
[2023-06-09] MEDS: DOCUSATE SODIUM 100 MG CAPSULE PO (09:17)
[2023-06-09] MEDS: FUROSEMIDE 40 MG TABLET PO (09:17)
[2023-06-09] MEDS: FERROUS SULFATE 325 MG TABLET DR PO (09:17)
[2023-06-09] MEDS: SPIRONOLACTONE 25 MG TABLET PO (09:17)
[2023-06-09] MEDS: lisinopriL 10 MG TABLET PO (09:17)
[2023-06-09] MEDS: CYANOCOBALAMIN 500 MCG TABLET PO (09:17)
[2023-06-09] MEDS: ENOXAPARIN 40 MG/0.4 ML SYRINGE SUB-Q (09:17)
--- NOTE | 2023-06-09 11:39 | PCNFU ---
Nutrition Follow-Up Complete: Moderate protein calorie malnutrition related to inadequate energy intake as evidenced by reduced po intake of less than 75% of needs for greater than 1 month, -18% wt loss x 3 months, and NFPE findings for moderate subcutaneous fat loss and moderate muscle wasting. Goal:Meet estimated needs Pt current nutrition is Soft and bite sized diabetic consistent carb, glucerna shakes BID. Nutrition recommendation: increase Glucerna to TID Last recorded weight is 59.9 kg. Bowel Motility: +BM 06/06 Labs Reviewed: Hgb:7.6, HCT:25.2, NA:133, K:3.1, GFR:53, BUN:22 Meds Noted: lovenox, colace, lasix, novolog/lantus Skin: Stage III to buttocks, Stage III to sacrum Additional Notes: Pt continues on same diet, intake varied 10-75%. Will increase Glucerna shakes to TID. Monitor intake, wt, labs. Follow up in 5 days
[2023-06-09 11:46] LABS: Glucose Point of Care 156 mg/dl (65-105)
[2023-06-09 14:00] VITALS: BP 124/41; PULSE 60; RESP 18; TEMP 37; O2SAT 99
--- NOTE | 2023-06-09 15:56 | PM.IMPN ---
Progress Note: A&P Assessment and Plan (1) Hydroureteronephrosis: Code(s): N13.30 - Unspecified hydronephrosis Status: Acute (2) Chronic anemia: Code(s): D64.9 - Anemia, unspecified Status: Acute (3) Abnormal urinalysis: Code(s): R82.90 - Unspecified abnormal findings in urine Status: Acute (4) Altered mental status: Code(s): R41.82 - Altered mental status, unspecified Status: Acute Plan 82-year-old female resident of [facility] with past medical history COPD, chronic iron deficiency anemia, anxiety, CKD stage 3, chronic hyponatremia, chronic lower back pain, combined systolic-diastolic heart failure, CAD status post NSTEMI, peptic ulcer disease, gout, hypertension, hyperlipidemia, insulin-dependent diabetes mellitus, ischemic cardiomyopathy, non alcoholic steatohepatitis, SARAH, OA, peripheral artery disease, portal vein thrombosis, vitamin-D deficiency presents from her nursing facility for altered mental status. The patient has been in and out of admission most recently admitted for sepsis thought to be due to UTI however urine culture show no growth. Family notes that her mental status has been waxing waning over time. She has never returned to baseline panel worse just prior to admission. This time she is ultimately admitted on 06/05/2023 for altered mental status thought to be due to urinary tract infection. Acute encephalopathy -no concrete evidence of toxic/infectious etiology. This may very well be a progression of underlying chronic neurocognitive decline. She would benefit from full evaluation with neuropsychiatry in the outpatient setting. CT head on admission demonstrating cerebral and cerebellar atrophy along with cerebral atherosclerosis and chronic small-vessel ischemic changes which also more so supports dementia of vascular origin. None the less, she has improved in on 06/07 is back to her apparent baseline status. Continue to monitor. Dispo pending back to nursing facility. The patient does not want to work with physical therapy. Urinary tract infection -Zosyn discontinued. Urinalysis on admission contaminated. Urine culture did not grow anything. Leukocytosis is resolved and procalcitonin is within normal limits. Unclear if there was infectious etiology although she was treated. Bilateral hydroureteronephrosis -renal ultrasound on 06/05 demonstrating moderate left hydronephrosis and minimal right hydronephrosis. Urology consulted. Nuclear medicine Lasix renal scan conducted on 06/07 demonstrating asymmetric renal function which is at the upper limits of normal with left kidney contributing only 41% total renal function. No further recommendations by Urology. Chronic iron deficiency anemia -her hemoglobin has drifted down slowly. She has had large volume fluid resuscitation so that has been discontinued. Continue to cycle hemoglobin level. -continue iron supplementation Chronic hyponatremia -stable Insulin-dependent diabetes mellitus -patient is not well so eating basal and bolus insulin held. Sliding scale continues. Accu-Cheks a.c. HS with hypoglycemia protocol Chronic kidney disease stage 3 -stable Combined systolic-diastolic heart failure -compensated. Discontinued fluid resuscitation. Acute hypokalemia -3.1 on 06/08. replace. FEN: Saline lock IV. Heart healthy cardiac diet GI prophylaxis: Not indicated DVT prophylaxis: Lovenox 40 mg q.day Lines: Peripheral IV Code Status: Full code Dispo: Stable. Patient clear to go. Dispo being arranged with care coordination. Subjective Date/time seen: 06/09/23 15:56 Interval history: No acute overnight events. The patient has no complaints. Review of Systems Review of Systems: All systems reviewed & are unremarkable except as noted in HPI and below (Subjective) Exam Const: General: comfortable and no acute distress Other: A&O x3. Eyes: Pupils: Equal, round and reactive
[2023-06-09 16:41] LABS: Glucose Point of Care 121 mg/dl (65-105)
[2023-06-09] MEDS: POTASSIUM CHLORIDE INJ 40 MEQ in SODIUM CHLORIDE 0.9% IV 500 ML 130 MEQ IVPB (17:16)
[2023-06-09 20:15] VITALS: BP 127/49; PULSE 65; RESP 20; TEMP 36.4; O2SAT 97
[2023-06-09 20:21] LABS: Glucose Point of Care 203 mg/dl (65-105)
[2023-06-09] MEDS: INSULIN ASPART (*BKC) 100 UNITS/ML SUB-Q (20:49)
[2023-06-09] MEDS: ROSUVASTATIN 10 MG TABLET 20 MG PO (21:24)
[2023-06-10 05:15] VITALS: BP 129/51; PULSE 62; RESP 20; TEMP 36.3; O2SAT 97
[2023-06-10 07:42] LABS: Glucose Point of Care 140 mg/dl (65-105)
[2023-06-10 07:53] LABS: Anion Gap 3 mmol/L (8-16); Blood Urea Nitrogen 28 mg/dL (7-17); Calcium 8.4 mg/dL (8.4-10.2); Carbon Dioxide 25 mmol/L (22-30); Chloride 105 mmol/L (98-107); Estimated CRCL calculation 36 ml/min; Estimated Glomerular Filt Rate 60; Glucose 154 mg/dL (65-110); Magnesium 1.8 mg/dL (1.6-2.3); Potassium 3.9 mmol/L (3.4-5.0); Sodium 133 mmol/L (137-145)
[2023-06-10 07:55] LABS: Hemoglobin 8.2 g/dL (12.0-15.0); Mean Corpuscular HGB Conc 30.4 g/dl (32-36); Mean Corpuscular Hemoglobin 27.8 pg (26-34); Mean Corpuscular Volume 91.5 fl (80-100); Platelet Count Result 398 k/mm3 (150-375); Red Blood Count 2.95 M/mm3 (4.2-5.4); Red Cell Distribution Width 13.7 % (11.5-14.5); White Blood Count 7.6 K/mm3 (4.5-10.0)
[2023-06-10 09:12] VITALS: PULSE 62
[2023-06-10] MEDS: FERROUS SULFATE 325 MG TABLET DR PO (09:12)
[2023-06-10] MEDS: SPIRONOLACTONE 25 MG TABLET PO (09:12)
[2023-06-10] MEDS: FUROSEMIDE 40 MG TABLET PO (09:12)
[2023-06-10] MEDS: DOCUSATE SODIUM 100 MG CAPSULE PO (09:12)
[2023-06-10] MEDS: METOPROLOL SUCCINATE EXT REL 50 MG TABCR PO (09:12)
[2023-06-10] MEDS: lisinopriL 10 MG TABLET PO (09:12)
[2023-06-10] MEDS: CYANOCOBALAMIN 500 MCG TABLET PO (09:12)
[2023-06-10] MEDS: ENOXAPARIN 40 MG/0.4 ML SYRINGE SUB-Q (09:13)
[2023-06-10 11:26] LABS: Glucose Point of Care 140 mg/dl (65-105)
--- NOTE | 2023-06-10 13:38 | PM.DS ---
DS: Admitting Diagnosis Discharge Date 06/10/23 Admitting Diagnosis 1. Altered mental status DS: Discharge Diagnosis Discharge Diagnosis (1) Hydroureteronephrosis: Code(s): N13.30 - Unspecified hydronephrosis Status: Acute (2) Chronic anemia: Code(s): D64.9 - Anemia, unspecified Status: Acute (3) Abnormal urinalysis: Code(s): R82.90 - Unspecified abnormal findings in urine Status: Acute (4) Altered mental status: Code(s): R41.82 - Altered mental status, unspecified Status: Acute Plan 82-year-old female resident of [facility] with past medical history COPD, chronic iron deficiency anemia, anxiety, CKD stage 3, chronic hyponatremia, chronic lower back pain, combined systolic-diastolic heart failure, CAD status post NSTEMI, peptic ulcer disease, gout, hypertension, hyperlipidemia, insulin-dependent diabetes mellitus, ischemic cardiomyopathy, non alcoholic steatohepatitis, SARAH, OA, peripheral artery disease, portal vein thrombosis, vitamin-D deficiency presents from her nursing facility for altered mental status. The patient has been in and out of admission most recently admitted for sepsis thought to be due to UTI however urine culture show no growth. Family notes that her mental status has been waxing waning over time. She has never returned to baseline panel worse just prior to admission. This time she is ultimately admitted on 06/05/2023 for altered mental status thought to be due to urinary tract infection. Acute encephalopathy -no concrete evidence of toxic/infectious etiology. This may very well be a progression of underlying chronic neurocognitive decline. She would benefit from full evaluation with neuropsychiatry in the outpatient setting. CT head on admission demonstrating cerebral and cerebellar atrophy along with cerebral atherosclerosis and chronic small-vessel ischemic changes which also more so supports dementia of vascular origin. None the less, she has improved in on 06/07 is back to her apparent baseline status. Continue to monitor. Dispo pending back to nursing facility. The patient does not want to work with physical therapy. Urinary tract infection -Zosyn discontinued. Urinalysis on admission contaminated. Urine culture did not grow anything. Leukocytosis is resolved and procalcitonin is within normal limits. Unclear if there was infectious etiology although she was treated. Bilateral hydroureteronephrosis -renal ultrasound on 06/05 demonstrating moderate left hydronephrosis and minimal right hydronephrosis. Urology consulted. Nuclear medicine Lasix renal scan conducted on 06/07 demonstrating asymmetric renal function which is at the upper limits of normal with left kidney contributing only 41% total renal function. No further recommendations by Urology. Chronic iron deficiency anemia -her hemoglobin has drifted down slowly. She has had large volume fluid resuscitation so that has been discontinued. Continue to cycle hemoglobin level. -continue iron supplementation Chronic hyponatremia -stable Insulin-dependent diabetes mellitus -patient is not well so eating basal and bolus insulin held. Sliding scale continues. Accu-Cheks a.c. HS with hypoglycemia protocol Chronic kidney disease stage 3 -stable Combined systolic-diastolic heart failure -compensated. Discontinued fluid resuscitation. Acute hypokalemia -3.1 on 06/08. replace. FEN: Saline lock IV. Heart healthy cardiac diet GI prophylaxis: Not indicated DVT prophylaxis: Lovenox 40 mg q.day Lines: Peripheral IV Code Status: Full code Dispo: Stable. Patient clear to go. Dispo being arranged with care coordination. DS: Summary Hospital Course Reason for hospitalization: Altered mental status UTI Hospital Course: Chief Complaint: Altered mental status. Narrative: This is an 82-year-old female with hypertension, hyperlipidemia, insulin-dependent diabetes, iron deficiency anemi
[2023-06-10 13:57] VITALS: BP 128/50; PULSE 68; RESP 16; TEMP 36.1; O2SAT 98
[2023-06-10 14:34] VITALS: O2SAT 95
[2023-06-10] MEDS: ACETAMINOPHEN 325 MG TABLET 650 MG PO (15:09)
[2023-06-10 16:24] LABS: Glucose Point of Care 137 mg/dl (65-105)
== END 2023-06-10 16:55 | DRG 689 ==
LOC: ANHED 15:21 → ANH3MEDSUR 16:11
PROVIDERS: Emergency Medicine; General Practice; Physician Assistant; Student in an Organized Health Care Education/Training Program; Admitting Provider Internal Medicine; Emergency Provider Emergency Medicine; PCP Nurse Practitioner Family; Visit Provider Internal Medicine
DX: N39.0 Urinary tract infection, site not specified (principal); G93.41 Metabolic encephalopathy; I13.0 Hypertensive heart and chronic kidney disease with heart failure and stage 1 through stage 4 chronic kidney disease, or unspecified chronic kidney disease; I50.42 Chronic combined systolic (congestive) and diastolic (congestive) heart failure; E87.1 Hypo-osmolality and hyponatremia; E44.0 Moderate protein-calorie malnutrition; N18.32 Chronic kidney disease, stage 3b; D50.9 Iron deficiency anemia, unspecified; E11.22 Type 2 diabetes mellitus with diabetic chronic kidney disease; E87.6 Hypokalemia; E78.5 Hyperlipidemia, unspecified; E55.9 Vitamin D deficiency, unspecified; F41.9 Anxiety disorder, unspecified; G89.29 Other chronic pain; I25.10 Atherosclerotic heart disease of native coronary artery without angina pectoris; I25.2 Old myocardial infarction; J44.9 Chronic obstructive pulmonary disease, unspecified; M54.9 Dorsalgia, unspecified; M10.9 Gout, unspecified; K59.09 Other constipation; E11.42 Type 2 diabetes mellitus with diabetic polyneuropathy; I25.5 Ischemic cardiomyopathy; G47.33 Obstructive sleep apnea (adult) (pediatric); N13.30 Unspecified hydronephrosis; Z99.89 Dependence on other enabling machines and devices; Z20.822 Contact with and (suspected) exposure to COVID-19; Z79.4 Long term (current) use of insulin; Z86.16 Personal history of COVID-19; Z98.84 Bariatric surgery status; Z90.49 Acquired absence of other specified parts of digestive tract; Z95.810 Presence of automatic (implantable) cardiac defibrillator; Z95.1 Presence of aortocoronary bypass graft; Z90.710 Acquired absence of both cervix and uterus; Z95.5 Presence of coronary angioplasty implant and graft; Z87.891 Personal history of nicotine dependence; Z68.23 Body mass index [BMI] 23.0-23.9, adult
CPT/HCPCS: 36415; 70450; 71045; 76775; 78708; 80048; 80053; 81001; 82140; 82607; 82728; 82746; 82948; 83540; 83550; 83605; 83735; 84145; 84443; 85025; 85027; 85610; 85730; 87040; 87086; 87088; 87637; 92611; 93005; 96361; 96365; 96367; 96375; 99285; A9270; A9562; G0378; J0692; J1650; J1815; J1940; J2543; J3370; J3480; J7030; J7040